=== PATIENT | female | born 1985 | race Caucasian/White ===

== ENCOUNTER 2023-11-02 15:44 | Outpatient (OUT) | payer OTHER, SELFPAY ==
[2023-11-02 16:12] LABS: Basophils Percent Auto 0.4 % (0.2-2.0); Eosinophils Absolute Auto 0.1 10^3/uL (0.0-0.7); Eosinophils Percent Auto 1.3 % (0.9-7.0); Hematocrit 33.7 % (36.0-48.0); Hemoglobin 10.1 g/dL (12.0-16.0); Immature Granulocytes Abs Auto 0.04 10^3/uL (0.00-0.03); Immature Granulocytes Pct Auto 0.5 % (0.0-0.5); Lymphocytes Absolute Auto 1.3 10^3/uL (1.2-3.8); Lymphocytes Percent Auto 16.7 % (20.5-60.0); Mean Corpuscular Volume 76.8 fL (81.0-99.0); Mean Platelet Volume 9.5 fL (9.5-13.5); Monocytes Absolute Auto 0.6 10^3/uL (0.3-0.8); Neutrophils Absolute Auto 5.7 10^3/uL (1.4-6.5); Neutrophils Percent Auto 73.1 % (43.0-75.0); Platelet Count 197 10^3/uL (150-450); Red Blood Count 4.39 10^6/uL (4.20-5.40); Red Cell Distribution Width 15.9 % (11.0-15.0); White Blood Count 7.8 10^3/uL (4.0-11.0)
[2023-11-02 16:15] LABS: Estimated Average Glucose 134 mg/dL; Glycohemoglobin A1C 6.3 % (4.5-6.2)
== END 2023-11-02 15:45 | disposition home or self-care (01) ==
LOC: LAB 15:48
PROVIDERS: PCP Family Medicine; Visit Provider Family Medicine
DX: D64.9 Anemia, unspecified (principal); E11.9 Type 2 diabetes mellitus without complications; H40.9 Unspecified glaucoma
CPT/HCPCS: 36415; 82728; 83036; 85025

== ENCOUNTER 2025-03-21 10:44 | Outpatient (RCR) | payer OTHER, SELFPAY ==
[2025-03-04 14:52] LABS: Hematocrit 32.6 % (36.0-48.0); Hemoglobin 9.3 g/dL (12.0-16.0); Immature Granulocytes Abs Auto 0.05 10^3/uL (0.00-0.03); Immature Granulocytes Pct Auto 0.7 % (0.0-0.5); Lymphocytes Absolute Auto 1.1 10^3/uL (1.2-3.8); Mean Corpuscular HGB Conc 28.5 g/dL (29.9-35.2); Mean Corpuscular Volume 69.2 fL (81.0-99.0); Platelet Count 216 10^3/uL (150-450); Red Blood Count 4.71 10^6/uL (4.20-5.40); Reticulocyte Pct Auto 2.68 % (0.60-3.10); White Blood Count 7.2 10^3/uL (4.0-11.0)
[2025-03-04 15:05] LABS: Mean Corpuscular Hemoglobin 19.7 pg (26.7-34.0)
[2025-03-04 15:32] LABS: Iron 21.0 ug/dL (50.0-170.0); Percent Iron Saturation 5.0 %; Total Iron Binding Capacity 419.0 ug/dL (250.0-450.0)
[2025-03-04 15:46] LABS: Ferritin 9.0 ng/mL (8.0-252.0)
[2025-03-04 15:54] LABS: Alanine Aminotransferase 45 U/L (14-59); Albumin Globulin Ratio 0.9; Albumin Level 3.9 g/dL (3.4-5.0); Alkaline Phosphatase 150 U/L (46-116); Anion Gap 14.0; Aspartate Amino Transferase 25 U/L (15-37); Blood Urea Nitrogen 11.0 mg/dL (7.0-18.0); Calcium 9.5 mg/dL (8.5-10.1); Carbon Dioxide 29.4 mmol/L (21.0-32.0); Chloride 100 mmol/L (98-107); Estimated GFR (African America >60 (>=60 mL/min/1.73m^2); Estimated GFR (Non-African Ame >60 (>=60 mL/min/1.73m^2); Globulin 4.5 g/dL; Glucose 108 mg/dL (74-106); Potassium 3.4 mmol/L (3.5-5.1); Sodium 140 mmol/L (136-145); Total Protein 8.4 g/dL (6.4-8.2)
[2025-03-05 03:07] LABS: Vitamin B12 498 pg/mL (232-1245)
[2025-03-06 12:10] LABS: Albumin 4.0 g/dL (2.9-4.4); Alpha-1-Globulin 0.3 g/dL (0.0-0.4); Alpha-2-Globulin 0.8 g/dL (0.4-1.0); Free Kappa Lt Chains,S 24.4 mg/L (3.3-19.4); Free Lambda Lt Chains,S 21.7 mg/L (5.7-26.3); Gamma Globulin 1.1 g/dL (0.4-1.8); Immunoglobulin A, Qn, Serum 333 mg/dL (87-352); Kappa/Lambda Ratio,S 1.12 (0.26-1.65)
[2025-03-14 10:50] VITALS: BP 129/78; PULSE 63; TEMP 36.6; O2SAT 96
[2025-03-21 10:46] VITALS: BP 151/81; PULSE 65; TEMP 36.2; O2SAT 94
[2025-03-21 11:25] VITALS: BP 140/81
== END 2025-03-25 23:59 | disposition home or self-care (01) ==
LOC: HEMC 10:44
PROVIDERS: PCP Family Medicine; Visit Provider Internal Medicine Hematology & Oncology
DX: D64.9 Anemia, unspecified (principal); D50.9 Iron deficiency anemia, unspecified; E11.9 Type 2 diabetes mellitus without complications; Z79.84 Long term (current) use of oral hypoglycemic drugs; K21.9 Gastro-esophageal reflux disease without esophagitis; I10 Essential (primary) hypertension; H40.9 Unspecified glaucoma; G47.30 Sleep apnea, unspecified; N92.0 Excessive and frequent menstruation with regular cycle; R53.83 Other fatigue; H81.09 Meniere's disease, unspecified ear
CPT/HCPCS: 36415; 80053; 82607; 82728; 82784; 83521; 83540; 83550; 83615; 84155; 84165; 85025; 85045; 85652; 86140; 86334; 96365; G0463; Q0138

== ENCOUNTER 2025-04-22 13:37 | Outpatient (RCR) | payer OTHER, SELFPAY ==
[2025-04-21 14:26] LABS: Hematocrit 36.8 % (36.0-48.0); Hemoglobin 11.4 g/dL (12.0-16.0); Immature Granulocytes Abs Auto 0.03 10^3/uL (0.00-0.03); Immature Granulocytes Pct Auto 0.5 % (0.0-0.5); Lymphocytes Absolute Auto 1.3 10^3/uL (1.2-3.8); Mean Corpuscular HGB Conc 31.0 g/dL (29.9-35.2); Mean Corpuscular Hemoglobin 24.8 pg (26.7-34.0); Mean Corpuscular Volume 80.2 fL (81.0-99.0); Platelet Count 176 10^3/uL (150-450); Red Blood Count 4.59 10^6/uL (4.20-5.40); White Blood Count 6.6 10^3/uL (4.0-11.0)
[2025-04-21 14:55] LABS: Iron 34.0 ug/dL (50.0-170.0); Percent Iron Saturation 10.6 %; Total Iron Binding Capacity 320.0 ug/dL (250.0-450.0)
[2025-04-21 15:10] LABS: Ferritin 40.0 ng/mL (8.0-252.0)
== END 2025-04-25 23:59 | disposition home or self-care (01) ==
LOC: HEMC 13:37
PROVIDERS: PCP Family Medicine; Visit Provider Internal Medicine Hematology & Oncology
DX: D64.9 Anemia, unspecified (principal); D50.9 Iron deficiency anemia, unspecified; K90.9 Intestinal malabsorption, unspecified; I10 Essential (primary) hypertension; K21.9 Gastro-esophageal reflux disease without esophagitis; N92.0 Excessive and frequent menstruation with regular cycle; H81.09 Meniere's disease, unspecified ear; G47.30 Sleep apnea, unspecified; R53.83 Other fatigue
CPT/HCPCS: 36415; 82728; 83540; 83550; 85025; G0463

== ENCOUNTER 2025-05-01 10:53 | Outpatient (RCR) | payer OTHER, SELFPAY ==
[2025-05-01 10:55] VITALS: BP 171/78; PULSE 73; TEMP 36.5; O2SAT 96
--- NOTE | 2025-05-01 11:33 | PC.NURSE ---
1128: IV Feraheme initiated at this time. Pt. without needs or c/o.
== END 2025-05-25 23:59 | disposition home or self-care (01) ==
LOC: HEMC 10:53
PROVIDERS: PCP Family Medicine; Visit Provider Internal Medicine Hematology & Oncology
DX: D50.9 Iron deficiency anemia, unspecified (principal); K90.9 Intestinal malabsorption, unspecified; D64.9 Anemia, unspecified
CPT/HCPCS: 96365; Q0138

== ENCOUNTER 2025-06-03 09:05 | Outpatient (OUT) | payer MEDICAID, SELFPAY ==
--- OUTSIDE RECORDS SUMMARY | 2025-05-28 19:54 | XMS_ITS | Continuity of Care Document ---
Author Organization [facility] Address [address] [place] [address] Phone Care Team Providers Care Airport Operations Supervisor Name Role Phone Evelina Mera MD Primary Care Provider Ely Dodge MD Attending Provider [phone] Evelina Mera MD Attending Provider [phone] Adonis Ferguson DIRECT MARKETING REPRESENTATIVE Attending Provider Brigitte Busch DNP Attending Provider [phone] Kajal Guajardo MANAGER [employer] Attending Provider [phone] Evelina Mera MD Referring Provider [phone] Lamberto Burgess MD Attending Provider Care Teams Patient Care Team Team Status: Active Member Role/Relationship Status Dates Evelina Mera MD Primary Care Provider Active Visit Care Team Team Status: Active Member Role/Relationship Status Dates Evelina Mera MD Primary Care Provider Active Start: March 04, 2025 Keith Harris ProviderActiveStart: March 04, 2025 Visit Care Team Team Status: Inactive Member Role/Relationship Status Dates Evelina Mera MD Primary Care Provider Active Start: March 07, 2025 End: March 07, 2025Keith Delcid ProviderActiveStart: March 07, 2025 End: March 07, 2025 Visit Care Team Team Status: Inactive Member Role/Relationship Status Dates Evelina Mera MD Primary Care Provider Active Start: March 14, 2025 End: March 14, 2025Philippjoby Clark Phyllis , APRNAttending ProviderActiveStart: March 14, 2025 End: March 14, 2025 Visit Care Team Team Status: Inactive Member Role/Relationship Status Dates Evelina Mera MD Primary Care Provider Active Start: March 15, 2025 End: March 15, 2025Philippjoby Clark Jamelneena , APRNAttending ProviderActiveStart: March 15, 2025 End: March 15, 2025 Visit Care Team Team Status: Inactive Member Role/Relationship Status Dates Evelina Mera MD Primary Care Provider Active Start: April 03, 2025 End: April 03, 2025Evelina Mera MDAttending ProviderActiveStart: April 03, 2025 End: April 03, 2025 Visit Care Team Team Status: Inactive Member Role/Relationship Status Dates Evelina Mera MD Primary Care Provider Active Start: April 07, 2025 End: April 07, 2025Brigitte Busch DNPAttending ProviderActiveStart: April 07, 2025 End: April 07, 2025 Visit Care Team Team Status: Active Member Role/Relationship Status Dates Evelina Mera MD Primary Care Provider Active Start: April 21, 2025 Ely Dodge MDAttending ProviderActiveStart: April 21, 2025 Visit Care Team Team Status: Inactive Member Role/Relationship Status Dates Evelina Mera MD Primary Care Provider Active Start: April 23, 2025 End: April 23ndra Guajardo , MANAGER SAP-CAttending ProviderActiveStart: April 23, 2025 End: April 23, 2025 Patient Care Team Team Status: Inactive Member Role/Relationship Status Dates Evelina Mera MD Primary Care Provider Active Start: April 23, 2025 End: April 23ndra Guajardo , MANAGER SAP-CAttending ProviderActiveStart: April 23, 2025 End: April 23, 2025 Visit Care Team Team Status: Inactive Member Role/Relationship Status Siva Mera MD Primary Care Provider Active Start: April 28, 2025 End: April 28, 2025Evelina Mera MDAttending ProviderActiveStart: April 28, 2025 End: April 28, 2025 Visit Care Team Team Status: Inactive Member Role/Relationship Status Dates Evelina Mera MD Primary Care Provider Active Start: April 29, 2025 End: April 29, 2025Eber Serrano ProviderActiveStart: April 29, 2025 End: April 29, 2025 Visit Care Team Team Status: Inactive Member Role/Relationship Status Dates Evelina Mera MD Primary Care Provider Active Start: May 15, 2025 End: May 15, 2025STERLING Delcideferring ProviderActiveStart: May 15, 2025 End: May 15, 2025Geordenisse Burgess MDAttending ProviderActive Start: May 15, 2025 End: May 15, 2025 Chief Complaint and Reason for Visit Chief Complaint Admit Date Discuss Oncology Visit March 07 025 1:44pm REF BY DR. MERA FOR IRON DEF ANEMIA Sep ber 2024 9:25am r11.0 March 15, 2025 8:06am Dizziness/Return to Work April 03 1:45[facility] April 07, 2025 1 0:38am brandon/ 2 month follow up/ new machine Octo 2024 8:55am Obstructive sleep apnea April 23 12:01pm Discuss Meds, A1C April 28, 2025 1 :01pm 6wk F/U ELAYNE April 29, 2025 1 :25pm other form of Dyspnea May 15 9:00am Reason for Visit Admit Date [facility]benign [facility]igo[facility] Generalized anxiety disorder February 242024 1:44pm Menieres disease March 07, 2025 1:44pm Morbid obesity with body mas s index (BMI) of 50.0 to 59.9 in adult March 07, 2025 1:44pm Anemia March 07, 2025 1:44pm Iron deficiency anemia March 14 025 9:25am BPV (benign positional vertigo) April 03, 2025 1:45pm Dyspnea on exertion April 03, 2025 1: 45pm Generalized anxiety disorder March 1:45pm GERD (gastroesophageal reflux disease) O ctober 2024 1:45pm Menieres disease April 03, 2025 1: 45pm Morbid obesity with body mas s index (BMI) of 50.0 to 59.9 in adult April 03, 2025 1:45pm Anemia April 03, 2025 1: 45pm Abnormal weight gain April 07, 2025 10:38am BMI 60.0-69.9, adult April 07, 2025 10:38am Class 3 severe obesity with body mass index (BMI) of 60.0 to 69.9 in adult April 07, 2025 10:38am Depression April 07, 2025 1 0:38am Dietary surveillance and counseling Octo 2024 10:38am Exercise counseling April 07, 2025 1 0:38am Generalized anxiety disorder March 10:38am GERD (gastroesophageal reflux disease) O ctober 2024 10:38am Glaucoma April 07, 2025 1 0:38am History of kidney stones April 07, 2 025 10:38am Hypertension April 07, 2025 1 0:38am Iron deficiency anemia April 07 10:38am Menieres disease April 07, 2025 1 0:38am BRANDON on CPAP April 07, 2025 1 0:38am Type II diabetes mellitus April 07, 2025 10:38am Hypertension April 23, 2025 8 :55am Iron deficiency anemia April 23 8:55am BRANDON on CPAP April 23, 2025 8 :55am Type II diabetes mellitus April 23, 2025 8:55am BMI 50.0-59.9, adult April 23, 2025 8:55am GERD (gastroesophageal reflux disease) N ovember 2024 1:01pm Morbid obesity with body mas s index (BMI) of 50.0 to 59.9 in adult April 28, 2025 1:01pm BRANDON on CPAP April 28, 2025 1 :01pm Type II diabetes mellitus April 28, 2025 1:01pm GERD (gastroesophageal reflux disease) N ovember 2024 1:25pm Iron deficiency anemia April 29 1:25pm BMI 60.0-69.9, adult May 15, 2025 9:00am Dyspnea on exertion May 15, 2025 9:00am Essential (primary) hypertension Novem2024 9:00am Iron deficiency anemia May 15 9:00am BRANDON on CPAP May 15, 2025 9:00am Palpitations May 15, 2025 9:00am Allergies, Adverse Reactions, Alerts Allergen Type Severity Reaction Last Updated Verified Status penicillin V Allergy Unknown rash May 1:59pm Yes Active sulfamethoxazole Allergy Unknown Swelling of Lip/Tongue/Throat, tongue swelling May 28, 2025 1:59pm Yes Active trimethoprim Allergy Unknown Swelling of Lip/Tongue/Throat, tongue swelling May 28, 2025 1:59pm Yes Active Social History Smoking Status Status Start Date End Date Date of Observa tion Never smoked tobacco (finding) May 28, 2025 2:05pm Observation Status Observation Response Date of Response Legal Sex Female (finding) Sex Assigned At BirthFemaleNovember 1984Pregnancy StatusNOctober 2024 Family History Relationship Condition Age at Onset Recorded Date/T renan father Hypertension Unknown History of obstructive sleep apneaUnknownHeart diseaseUnknownOverweightUnknown motherHistory of malignant neoplasm of skinUnknownMalignant neoplasmUnknown Mental health problemUnknownsisterHypothyroidismUnknownHistory of gastric bypass UnknowndaughterAdopted childUnknown Problems Active Problems Problem Diagnosis/Recorded Date Onset Date Stat us Class 3 severe obesity with body mass index (BMI) of 60.0 to 69.9 in adult April 07, 2025 10:10am Unknown Active Exercise counseling April 07, 2025 7:11am Unknown Active Generalized anxiety disorder November 01, 2023 1:05pm Unkn own Active Visual changes December 19, 2023 10:49am Unknown Ac tive BRANDON on CPAP February 20, 2025 9:18am Unknown Act donna BPV (benign positional vertigo) December 11, 2023 10:52a m Unknown Active Dyspnea on exertion April 03, 2025 1:11pm Unknown Active Palpitations April 07, 2025 10:24am Unknown A ctive Ovarian cyst August 02, 2020 11:50am Unknown A ctive Dietary surveillance and counseling April 07, 2025 7:11am Unknown Active Type II diabetes mellitus November 01, 2023 1:06pm Unknown Active Abnormal weight gain April 07, 2025 7:11am Unknown Active 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 October 18, 2024 12:06pm Unknown Active Depression August 02, 2020 9:58am Unknown Ac tive Essential (primary) hypertension November 01, 2023 1:05pm Unknown Active Iron deficiency anemia March 14, 2025 11:45am Un known Active BMI 60.0-69.9, adult April 07, 2025 10:10am Unknow n Active Morbid obesity with body mas s index (BMI) of 50.0 to 59.9 in adult February 26, 2025 12:12pm Unknown A ctive History of kidney stones April 07, 2025 10:51am Un known Active GERD (gastroesophageal reflux disease) April 04 025 6:33pm Unknown Active Glaucoma November 02, 2023 2:31pm Unknown Active Hypertension November 01, 2023 1:05pm Unknown Active Menieres disease October 16, 2024 8:54am Unknown Active Acute lumbar myofascial strain August 17, 2021 2:3 8pm Unknown Active Inactive/Resolved Problems Problem Diagnosis/Recorded Date Onset Date Stat us Sinusitis, acute maxillary May 15, 2024 11:22am Unknown Resolved Anemia November 02, 2023 2:31pm Unknown Resolve d Flank pain August 02, 2020 10:18am Unknown R esolved Gastroenteritis November 08, 2023 9:41am Unknown Res olved Headache December 19, 2023 10:49am Unknown Reso lved Pain of right calf February 06, 2025 7:22pm Unknown Resolved Cat scratch January 15, 2021 9:03pm Unknown Resol sonali Abdominal pain August 02, 2020 10:18am Unknown Resolved Bronchitis June 26, 2022 4:22pm Unknown Res olved Nausea December 11, 2023 10:52am Unknown Reso lved Diarrhea in adult patient January 01, 2025 8:01am Unknow n Resolved Medications Medication Status Dose Units Route Directions Qty Days Refills S tart Date Stop Date End Date Reason(s) Instructions Adherence Potassium Chloride 10 mEq tablet extended release Disc ontinued 0 .ROUTE.[id number] 2023 2:27pmSeptember 2023 7:39amTAKE 1 TABLET BY MOUTH THREE TIMES DAILY WITH FOODMetformin 1,000 mg ualxdiTqskehzbrmch3583RC POTwice bjcnb5790Xtk 2023 3:43pmAugust 2023 7:30amMetoprolol Tartrate 50 mg zqltktEjuyqkhukchg94TOTGBqdfi rqqet7525UwdNovember 21, 2023 1:03pm February 12, 2024 7:30amAtorvastatin 40 mg oguygcKbwenkcdqtba13RWWFZzzvv181Kks 2023 1:08pmAugust 2023 7:30amBupropion Hcl 200 mg tablet sustained- release 12 xdMgydczigufco721NLNXTaisn eqgau979BmnNovember 21, 2023 1:08pmJuly 2023 10:37amFurosemide 40 mg mhmuguWfumxliqrxkh54QAAQHydca499Izi 2023 1:08pmNovember 2023 12:52pmSertraline 100 mg oeyqeoGxtrgrdclfrs853KNNV Pxeou527XiyNovember 21, 2023 1:08pmAugust 2023 7:30amBupropion Hcl 200 mg tablet sustained-release 12 hrDiscontinued0.ROUTE.SNSBBNO767Pdhx 2023 10:37am February 12, 2024 7:30amTAKE 1 TABLET BY MOUTH TWICE DAILYSumatriptan Succinate 50 mg tabletDiscontinued0.ROUTE.UDZKMMI025MykyJanuary 18, 2024 10:37amNovemb2023 12:52pmTAKE 1 TABLET BY MOUTH EVERY 2 HOURS NEEDED FOR MIGRAINE HEADACHE, MAX OF 4 TABLETS IN 24 HOURSMetformin 1,000 mg tabletDiscontinued0 .ROUTE.VCVZPEO6386Zomgas2023 7:29amNovemb2023 12:52pmTAKE 1 TABLET BY MOUTH TWICE DAILYMetoprolol Tartrate 50 mg tabletDiscontinued0.ROUTE .IRYYIDO0634Ktzucn2023 7:29amNovember 2023 12:52pmTAKE 1 TABLET BY MOUTH TWICE DAILYSertraline 100 mg tabletDiscontinued0.ROUTE.DSGFZGH618Pnihoe2023 7:29amNovember 2023 12:52pmTAKE 1 TABLET BY MOUTH DAILY Atorvastatin 40 mg tabletDiscontinued0.ROUTE.NNEDYEM745Gxvbby 19th, 2024 7:29am May 14, 2024 12:52pmTAKE 1 TABLET BY MOUTH DAILYBupropion Hcl 200 mg tablet sustained-release 12 hrDiscontinued0.ROUTE.JBDFZGF599Zmwhai 2023 7:29amSeptember 2023 7:45amTAKE 1 TABLET BY MOUTH TWICE DAILYPotassium Chloride 10 mEq tablet extended releaseDiscontinued0.ROUTE.CMVATSP0868Qyukyebsy 2023 7:38amNovember 2023 12:52pmTAKE 1 TABLET BY MOUTH THREE TIMES DAILY WITH FOODBupropion Hcl 200 mg tablet sustained-release 12 hrDiscontinued0 .ROUTE.BTJQVQN437Jxigsubxb 20th, 2024 7:45amOctober 2023 2:45pmTAKE 1 TABLET BY MOUTH TWICE DAILYBupropion Hcl 200 mg tablet sustained-release 12 hr Discontinued0.ROUTE.FVTNVZP437Pfsrwfy 2023 2:45pmNovember 2023 12:52pmTAKE 1 TABLET BY MOUTH TWICE DAILYAtorvastatin 40 mg tabletDiscontinued0 .ROUTE.IGETONZ407Jhmpayog 2023 12:50pmOctober 2024 10:29amTAKE 1 TABLET BY MOUTH DAILYBupropion Hcl 200 mg tablet sustained-release 12 hr Discontinued0.ROUTE.OMBCDCV9884Svphsibi 2023 12:51pmApril 2024 10:09amTAKE 1 TABLET BY MOUTH TWICE DAILYFurosemide 40 mg cioqgyZzboisefxjpc60VB LASyqsi394Wmvywblz 2023 12:51pmMay 2024 1:21pmMetformin 1,000 mg tabletDiscontinued0.ROUTE.LJOQBCM7760Evnddxbn 2023 12:51pmFebruary 2024 3:12pmTAKE 1 TABLET BY MOUTH TWICE DAILYMetoprolol Tartrate 50 mg tablet Discontinued0.ROUTE.CYVZYQC8896Xqkindky 2023 12:51pmFebruary 2024 3:12pmTAKE 1 TABLET BY MOUTH TWICE DAILYOndansetron 4 mg tablet,disintegrating Okmysgwahami1NVPSK0Z as needed for nausea and jmyrpepm866Mikjdkzk 2023 12:51pmAugust 2024 5:03pmPotassium Chloride 10 mEq tablet extended release Discontinued0.ROUTE.CHCSMUB0113Wyzhdxgr 2023 12:51pmNovember 25, 2024 12:45pm TAKE 1 TABLET BY MOUTH THREE TIMES DAILY WITH FOODSertraline 100 mg tablet Discontinued0.ROUTE.XZTMIGU850Luopotov 19th, 2024 12:51pmFebruary 2024 3:12pmTAKE 1 TABLET BY MOUTH DAILYSumatriptan Succinate 50 mg tabletActive0 .ROUTE.ADZMMGD572ZbpavcslMay 14, 2024 12:51pmTAKE 1 TABLET BY MOUTH EVERY 2 HOURS NEEDED FOR MIGRAINE HEADACHE, MAX OF 4 TABLETS IN 24 HOURSComplies with drug therapyMetoprolol Tartrate 50 mg tabletDiscontinued0.ROUTE.ZPYJWBU5575Ucneumdz 2024 3:11pmMay 2024 10:27amTAKE 1 TABLET BY MOUTH TWICE DAILY Sertraline 100 mg tabletDiscontinued0.ROUTE.KJKLACI994Yncgcvos 17th, 2025 3:11pm March 03, 2025 11:18amTAKE 1 TABLET BY MOUTH DAILYMetformin 1,000 mg tablet Discontinued0.ROUTE.AVIHOGN4372Ounksulu 2024 3:12pmMay 2024 10:27am TAKE 1 TABLET BY MOUTH TWICE DAILYOlmesartan-Hydrochlorothiazide 20-12.5 mg tabletDiscontinued0.ROUTE.ZGENFZA296Mhyev 2024 11:23amJune 2024 7:26amTAKE 1 TABLET BY MOUTH DAILYFurosemide 40 mg gmwhqpFigfprbsloiu33KJEAJsglp 900May 2024 1:21pmJuly 2024 6:23amMetformin 1,000 mg tablet Discontinued0.ROUTE.ZARLUJB3227Ivb2024 10:27amOctober 2024 10:29am TAKE 1 TABLET BY MOUTH TWICE DAILYMetoprolol Tartrate 50 mg tabletDiscontinued0 .ROUTE.DIWCJCV6702Wyr2024 10:27amNovember 2024 10:36amTAKE 1 TABLET BY MOUTH TWICE DAILYPotassium Chloride 10 mEq tablet extended release Discontinued0.ROUTE.JYGGLQL4278Davi2024 12:45pmNovember 2024 8:36am TAKE 1 TABLET BY MOUTH THREE TIMES DAILY WITH FOODOlmesartan-Hydrochlorothiazide 20-12.5 mg tabletDiscontinued0.ROUTE.HCKLLZV998Swxj 27th, 2025 7:26amSept2024 7:47amTAKE 1 TABLET BY MOUTH DAILYFurosemide 40 mg tabletDiscontinued 03PUSIHcxai547Wpvl 2024 6:22amOctober 2024 6:31amBuspirone 5 mg jkbszvWklsdlvadcdu4JRGSTkntd jczvz84325Zixcymgkb 2024 11:18amSeptember 2024 8:39amSertraline 100 mg tabletDiscontinued0.ROUTE.QTOXWCR618Cyxwwbkpm 8th, 2025 11:18amOctober 2024 10:21amTAKE 1 TABLET BY MOUTH DAILY Olmesartan-Hydrochlorothiazide 20-12.5 mg tabletActive0.ROUTE.JJTRURN422 March 17, 2025 7:47amTAKE 1 TABLET BY MOUTH DAILYComplies with drug therapyBuspirone 5 mg ylpndrExxprjqjjbqw8ALVHVsrtz xbwmw93742Qeuslvk 2024 10:15amNovember 2024 8:24amFurosemide 40 mg tabletActive0.ROUTE.ROLROAY452 April 18, 2025 6:31amTAKE 1 TABLET BY MOUTH DAILYComplies with drug therapy Buspirone 5 mg xyjxhmLogvxm7ASAHKdioo wtgqs05285Yypyrrcu 2024 8:24am Complies with drug therapyMetoprolol Tartrate 50 mg tabletDiscontinued0.ROUTE .YULBERU7951Ngyybzwp 11th, 2025 10:35amNovember 2024 9:47amTAKE 1 TABLET BY MOUTH TWICE DAILYSertraline 100 mg rvvoykBmvjrj846VLDMHmdwc722Hzkojbrj 2024 10:35amComplies with drug therapyMetformin 1,000 mg myvsloEpggft6014BQEY Twice volcx2339Qzbrbzjy 20th, 2025 2:36pmUnknownAtorvastatin 40 mg tabletActive 20YUGYBcfpr639Zmyhqjwn 28th, 2025 8:36amUnknownPotassium Chloride 10 mEq tablet extended releaseActive0.ROUTE.CNBVJHS2651Liuawbjm 28th, 2025 8:36amTAKE 1 TABLET BY MOUTH THREE TIMES DAILY WITH FOODUnknownTizanidine 4 mg wwwzljJzpqcq6REGO Three times daily as needed for muscle qztxxxdzgm390Oyjmps 2024 11:00pm Complies with drug therapyNaproxen (Naprosyn) 500 mg huhdegPzudlamjvwke819KJHI Twice daily as needed for jvkx363Yvhisb 2024 11:00pmSeptember 2024 8:39amAtorvastatin 10 mg xbhvywQdfbuaouqmeu09ENHYTzjibSvljucki 2020 12:00am August 17, 2021 2:00pmMetformin 850 mg ffkleeOuktchruvqqz5364LISZXhxve daily August 02, 2020 12:00amMay 2023 3:30pmBupropion Hcl 100 mg tablet sustained-release 12 ssTlmdvcfcprtu729NTWHZgiov dailyFebruary 2020 12:00am September 19, 2023 9:13amMetoprolol Tartrate 50 mg mokxckDvcjoqtkxboy30PYHIHqmbx dailyFebruary 2020 12:00amFebruary 2023 2:29pmAspirin 81 mg Tablet Ifpkpo60RXSQXhpcyLydrekrh 2020 12:00amComplies with drug therapy Hydrochlorothiazide 25 mg ohqpduOsmippbaovej66CTDAVdsosUyeagdtb 2020 12:00amFebruary 2021 2:00pmEscitalopram Oxalate 20 mg eijsphZzvkecimrebx95 MGPODailyFebruary 2020 12:00amMarch 2023 12:08pmPotassium Chloride 10 mEq capsule, extended wblxwntQuekuhpainpi75XICZWXuagd times dailyJuly 2020 11:00pmMarch 2023 2:27pmAmlodipine 5 mg qmzcqqOobrhbyigqpj6MOQEWgibqAczs 2020 11:00pmFebruary 2021 2:00pmAzithromycin 250 mg tablet Ocnepzfawlst4XT.JFQMCCJ91Hwqp 2020 11:00pmFebruary 2021 2:00pmtake 500 mg today (day 1), then 250 mg for 4 days (days 2-5)Furosemide 40 mg tablet Kcsxbxannpqa39RFFKUvofyMgeuhfvj 2021 12:00amMay 2023 1:09pm Atorvastatin 40 mg tabletDiscontinuedMGFebruary 2021 12:00amJanuary 2022 2:54pmVenlafaxine 75 mg capsule,extended release 73exSmwpcgosqjmk49XBDR DailyFebruary 2021 12:00amOctober 2023 2:26pmKetorolac 10 mg tablet Dylejjbzgwdp67ZRBEE2Q as needed for miuj748Deprbogg 2021 12:00amJanuary 2022 2:54pmCyclobenzaprine 10 mg jtwiieKayzcyddvcyk71WOTYCitwt times daily as needed for muscle dwygf749Simlbalc 2021 12:00amMarch 2023 12:09pm Lidocaine 5 % adhesive patch,wtiodiydlLqaxpwhxyizp0YYXJLKKZVQXYKotlh as needed for rkzg703Gfvjdxnk 2021 12:00amOctober 2023 10:32amleave on most painful area for up to 12 hrsPrednisone 20 mg riqqsaVkawxdiroqip59SMSEPmmal559 June 26, 2022 12:00amMarch 2023 12:09pmadminister with food or milk Sertraline 100 mg foisprOvzuxfsoemrm987WTGGPtsrbYqvsmdjl 2023 12:00am August 14, 2023 2:29pmFurosemide (Lasix) 40 mg rapdcqVnowoxrvymeo94JYNVDvcfm August 14, 2023 12:00amFebruary 2023 2:29pmMetoprolol Tartrate (Lopressor) 50 mg fkcjhsPlnuhskvxzrr59UXGPFyrcd dailyFebruary 2023 12:00am December 05, 2023 10:07amAtorvastatin 40 mg volppeSrtbmnkscdmk21LPTFEswlgGimjlzzj 2023 12:00amFebruary 2023 2:29pmMetformin 1,000 mg tablet Kmbjjvxmbofp9150NRVSAfarl dailyFebruary 2023 12:00amFebruary 2023 2:29pmAtorvastatin 40 mg tppczqDqgmoisavecv72QUSHXnxgf824Ymbtbwqx 2023 2:27pmMay 2023 1:09pmFurosemide (Lasix) 40 mg pftfttHrmuuffvjxal36TZOY Uysee022Tkijqinn 2023 2:27pmJune 2023 10:46amMetformin 1,000 mg xeaajuFhlkbsuvwmrg4142GKEFTrkra kebcu2708Bcyzmfep 2023 2:28pmMar 2023 12:09pmSertraline 100 mg lyydbiYpvakwygwazj082YUUXZvbrm205Jwjjctvj 2023 2:28pmMay 2023 1:09pmMetoprolol Tartrate 50 mg ugdewbPwkspfhnenyy32RX POTwice ttovg0263Idvdfyhc 2023 2:29pmMay 2023 1:03pmBupropion Hcl 200 mg tablet sustained-release 12 vxXmujlljbuhnf560LAJOQsaht dailyWay[facility] 20[facility]pm[facility] 20[facility] 12:09pmBupropion Hcl 200 mg tablet sustained- release 12 gdCjvxkmatmqbj199IRJVDyvbn pktwe330Iwzel 2023 12:09pmMay 2023 1:09pmMeclizine 25 mg xdudcmCjbcocwwvyyj69HUODAojvu daily as needed for xrjzwufyc996Tmon 10th, 2024 11:00pmOctober 2023 10:31amOndansetron 4 mg tablet,nqltelvurptqslOagymzjdvswl4CSKNE8L as needed for nausea and hhhfiqjh408 December 19, 2023 10:40amJune 2023 10:45amOndansetron 4 mg tablet,emkwnkjfsaplybObhxtkiyxxmv0TCRFX7M as needed for nausea and pwfxwwiv078 December 19, 2023 10:44amNoveer 2023 12:52pmOlmesartan-Hydrochlorothiazide 20-12.5 mg hlmcczAtlwrnmlrlza1IVXOZHjfqoXkflpjpk 2023 12:00amNovequail [facility] 2023 2:21pmAzithromycin 250 mg exidzlKecvwkalqvkv8RJ.BNBALPR88Gijlxqdt 2023 12:00amFebrour [facility] 2024 3:03pmFor 250 mg dose pack: take 500 mg today (day 1), then 250 mg for 4 days (days 2-5) POOlmesartan- Hydrochlorothiazide 20-12.5 mg rfahkqDlyhegymrcoc3IQUPJErpdz464Zonetmxr 18th, 2024 2:21pmMarch 2024 11:23amSemaglutide (Ozempic) 0.25 mg or 0.5 mg (2 mg/3 mL) pen injectorDiscontinued0.25MGSUBCUTevery tban61Iicmunkd 2024 12:00amAugust 2024 5:03pmfor 4 weeksCiprofloxacin Hcl 500 mg tablet Bqhovtqbzise878RXZLMgafh pzsem856Asdv 2024 11:00pmAugust 2024 5:02pm Semaglutide (Weight Loss) (Wegovy) 0.25 mg/0.5 mL pen injectorDiscontinued0.25MG SUBCUTevery kwln92Yeiabrpzk 1st, 2025 11:00pmOctober 2024 10:08am administer weeks 1 through 4 of therapyFamotidine (Pepcid) 40 mg ecqefjHfdvdm72 MGPODaily at phagdho901Uavdpogu 3rd, 2025 12:00amComplies with drug therapy Tirzepatide (Weight Loss) (Zepbound) 2.5 mg/0.5 mL pen injectorDiscontinued2.5MG SUBCUTevery week2.5300April 28, 2025 1:39pmDecember 2024 2:01pmOSA on CPAP Morbid obesity with body mass index (BMI) of 50.0 to 59.9 in adult Obstructive sleep apnea (adult) (pediatric) Morbid (severe) obesity due to excess calories Body mass index [BMI] 50.0-59.9, adult brandon G47.33for 4 weeksMetformin 1,000 mg oibmslQqfkvmflunut1631QXZWNrqir dailyMay 2023 11:00pmMay 2023 3:43pmFluticasone Propionate (Flonase Allergy Relief) 50 mcg/actuation spray,bbdmoburgkPbhgljzvfjua5JURQAREUWVZWPNYLslsa587 December 10, 2023 11:00pmNov2023 12:52pmadminister into each nostril Ondansetron 4 mg tablet,mjliaumasktjemCzbphnllphos7DWPMI6M as needed for nausea and wmdamase774Usys 2023 11:00pmJune 2023 10:40amSumatriptan Succinate 50 mg vjdnylNbijcfteybls13SBHHKiyln 2 hours as needed for migraine tfljwrpz698Hesn 2023 11:00pmJuly 2023 10:37amdo not exceed 4 doses per 24 hrsBuspirone 5 mg cwcvbvWankvsbhhxzk1MPPCTlfpj kxasz43243Tqvjd 2024 11:00pmSeptember 2024 11:18amTopiramate 25 mg capsule,extended release 24hr Nzqzsy33AUMAKryrlSbvyxcj 2024 11:00pmComplies with drug therapyTirzepatide (Weight Loss) (Zepbound) 2.5 mg/0.5 mL pen injectorDiscontinued2.5MGSUBCUTevery week2.5300Oct2024 11:00pmNov2024 1:40pmosa G47.33for 4 weeksSertraline 100 mg uqhpxpVegagtsbtvrt458QDBSZzxkcXgznzkf 2024 10:07am May 06, 2025 10:36amMetformin 1,000 mg xftgudLbsupdnrxaah7728OBBHIjkrc dailyOctten [facility] hospital 2024 10:28amNovember 2024 2:36pmAtorvastatin 40 mg gvfhutWtgovmuoprbv67OAHLZwtwbFbhselb 2024 10:29amNoveer 2024 8:36amOmeprazole 20 mg capsule,delayed release(DR/EC)Spxdaw76YIYQXmgvt508Nayosot 2024 11:00pmUnknownCarvedilol (Coreg) 12.5 mg uikndmKsrwex84.5MGPOTwice snjze19335Avccsthv 20th, 2025 12:00ammust administer with a meal/foodComplies with drug therapy Immunizations Immunization Event Date Not Given Reason Dose Number 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 Lot Number Reason(s) Given Vaccine Information Statement (VIS) Detail Administration Location Tetanus, Diphtheria, Pertussis (Tdap) January 15, [address] Relevant Diagnostic Tests and/or Laboratory Data Laboratory Results Test Collection Date/Time Result Date/Time Result Interpretation Reference Range Result Comment Performing Site Immunoglobulin G March 04, 2025 1:39pm March 04, 2025 1:39pm 964 mg/dL 586-1602Vitamin B12 LevelSept2024 1:39pmSept2024 1:30pg627 pg/zJ677-2308Awljnzcgv at: - [facility] [address] [place], [place] [id number] Director: Eddie You PhD, Phone: [phone]-Iftqcvnj Protein, QuantitativeSept2024 1:39pmSept2024 1:39pm2.01 mg/dLAbove high normal<=0.50Lactate DehydrogenaseSept2024 1:39pm March 04, 2025 1:13om667 U/Z41-679Vvyln GapSept2024 1:39pm March 04, 2025 1:39pm14.0FerritinSept2024 1:39pmSept2024 1:39pm9.0 ng/mL8.0-252.0Iron SaturationSept2024 1:39pmSept2024 1:39pm5.0 %Percent Reticulocyte CountSept2024 1:39pm March 04, 2025 1:39pm2.68 %0.60-3.10Basophils # (Auto)March 04, 2025 1:39pmSept2024 1:39pm0.0 10 3/uL0.0-0.1Erythrocyte Sedimentation Rate March 04, 2025 1:39pmSept2024 1:41fp326 mm/hrAbove high normal <=20FerritinOctober 2024 1:07pmOctober 2024 1:07pm40.0 ng/mL 8.0-252.0Iron SaturationOctober 2024 1:07pmOctober 2024 1:07pm10.6 % Basophils # (Auto)April 21, 2025 1:07pmOct2024 1:07pm0.0 10 3/uL 0.0-0.1Bedside Hemoglobin G1mOspgcora2024 1:23pmNov2024 1:24pm 5.9 %Protein Electrophoresis M-SpikeSept2024 1:39pmSept2024 1:39pmNot Observed g/dLNot ObservedAlbumin/Globulin RatioSept2024 1:39pmSept2024 1:39pm0.9Iron LevelSept2024 1:39pm March 04, 2025 1:39pm21.0 ug/dLBelow low wzsutb16.0-170.0Basophils (%) (Auto)March 04, 2025 1:39pmSept2024 1:39pm0.6 %0.2-2.0Iron Level April 21, 2025 1:07pmOct2024 1:07pm34.0 ug/dLBelow low normal 50.0-170.0Basophils (%) (Auto)April 21, 2025 1:07pmOct2024 1:07pm 0.6 %0.2-2.0Globulin (PEP)March 04, 2025 1:39pmSept2024 1:39pm 3.5 g/dL2.2-3.9AlbuminSept2024 1:39pmSept2024 1:39pm3.9 g/dL3.4-5.0Total Iron Binding CapacitySept2024 1:39pmSept2024 1:28rk589.0 ug/dL250.0-450.0Eosinophils # (Auto)March 04, 2025 1:39pm March 04, 2025 1:39pm0.1 10 3/uL0.0-0.7Total Iron Binding CapacityOct2024 1:07pmOct2024 1:33ph397.0 ug/dL250.0-450.0Eosinophils # (Auto)April 21, 2025 1:07pmOct2024 1:07pm0.1 10 3/uL0.0-0.7 Albumin/Globulin (PEP)March 04, 2025 1:39pmSept2024 1:39pm1.2 0.7-1.7Alkaline PhosphataseSeptember 2024 1:39pmSeptember 2024 1:39pm 150 U/LAbove high efclld97-569Opbukmwcnis (%) (Auto)March 04, 2025 1:39pm March 04, 2025 1:39pm0.7 %Below low normal0.9-7.0Eosinophils (%) (Auto) April 21, 2025 1:07pmOct2024 1:07pm0.8 %Below low normal0.9-7.0 Serum Immunofixation InterpretationSeptember 2024 1:39pmSept2024 1:39pmComment.No monoclonality detected.Alanine Aminotransferase (ALT/SGPT) March 04, 2025 1:39pmSept2024 1:39pm45 U/E69-03Xwtxixcqlh March 04, 2025 1:39pmSeptember 2024 1:39pm32.6 %Below low normal 36.0-48.0HematocritOctober 2024 1:07pmOctober 2024 1:07pm36.8 % 36.0-48.0Protein Electrophoresis NoteSept2024 1:39pmSeptember 2024 1:39pmComment.Protein electrophoresis scan will follow via computer,mail, or c java developer delivery.Aspartate Amino Transf (AST/SGOT)March 04, 2025 1:39pm March 04, 2025 1:39pm25 U/E69-74NzuhusyoptRrazkehsl 9th, 2025 1:39pm March 04, 2025 1:39pm9.3 g/dLBelow low phqadv61.0-16.0HemoglobinOctober 2024 1:07pmOctober 2024 1:07pm11.4 g/dLBelow low uwccjp05.0-16.0Free [place] Light Chains, QuantSeptember 2024 1:39pmSept2024 1:39pm 24.4 mg/LAbnormal (applies to non-numeric results)3.3-19.4BUN/Creatinine Ratio March 04, 2025 1:39pmSept2024 1:39pm15.1Immature Granulocyte # (Auto)March 04, 2025 1:39pmSept2024 1:39pm0.05 10 3/uLAbove high normal0.00-0.03Immature Granulocyte # (Auto)April 21, 2025 1:07pmOct2024 1:07pm0.03 10 3/uL0.00-0.03Free Lambda Light Chains, 2024 1:39pmSept2024 1:39pm21.7 mg/L5.7-26.3Blood Urea Nitrogen March 04, 2025 1:39pmSept2024 1:39pm11.0 mg/dL7.0-18.0Immature Granulocyte % (Auto)March 04, 2025 1:39pmSept2024 1:39pm0.7 % Above high normal0.0-0.5Immature Granulocyte % (Auto)April 21, 2025 1:07pm April 21, 2025 1:07pm0.5 %0.0-0.5Free [place]/Lambda Light Chain Ratio March 04, 2025 1:39pmSept2024 1:39pm1.120.26-1.65Performed at: - [facility] [id number] [place], [place] [id number] Director: Eddie You PhD, Phone: [phone] LevelSept2024 1:39pmSept2024 1:39pm9.5 mg/dL8.5-10.1Lymphocytes # (Auto)March 04, 2025 1:39pm March 04, 2025 1:39pm1.1 10 3/uLBelow low normal1.2-3.8Lymphocytes # (Auto) April 21, 2025 1:07pmOctober 2024 1:07pm1.3 10 3/uL1.2-3.8 Immunoglobulin ASept2024 1:39pmSept2024 1:29mp245 mg/dL 87-352Chloride LevelSept2024 1:39pmSept2024 1:56kc974 mmol/Y50-848Oafagmrljns (%) (Auto)March 04, 2025 1:39pmSept2024 1:39pm15.8 %Below low yhhfzg74.5-60.0Lymphocytes (%) (Auto)April 21, 2025 1:07pmOct2024 1:07pm19.0 %Below low .5-60.0Immunoglobulin M March 04, 2025 1:39pmSept2024 1:95vl748 mg/dLAbnormal (applies to non-numeric results)26-217Carbon Dioxide LevelSept2024 1:39pm March 04, 2025 1:39pm29.4 mmol/L21.0-32.0Mean Corpuscular Hemoglobin March 04, 2025 1:39pmSept2024 1:39pm19.7 pgBelow low normal 26.7-34.0HYPOCHROMASIA 1+Mean Corpuscular HemoglobinOct2024 1:07pm April 21, 2025 1:07pm24.8 pgBelow low zgyrun94.7-34.0Serum Total Protein March 04, 2025 1:39pmSept2024 1:39pm7.5 g/dL6.0-8.5Creatinine March 04, 2025 1:39pmSept2024 1:39pm0.73 mg/dL0.55-1.02Mean Corpuscular Hemoglobin ConcentSept2024 1:39pmSept2024 1:39pm28.5 g/dLBelow low umplpd28.9-35.2Mean Corpuscular Hemoglobin Concent April 21, 2025 1:07pmOctten [facility] hospital 2024 1:07pm31.0 g/dL29.9-35.2Albumin (Send Out)March 04, 2025 1:39pmSept2024 1:39pm4.0 g/dL2.9-4.4 Estimated GFR ()March 04, 2025 1:39pmSept2024 1:39pm>60>=60 mL/min/1.73m 2Mean Corpuscular VolumeSept2024 1:39pm March 04, 2025 1:39pm69.2 fLBelow low nqpeqf28.0-99.0Mean Corpuscular VolumeOctober 2024 1:07pmOctober 2024 1:07pm80.2 fLBelow low normal 81.0-99.9Jzazx-7-WzrvmatcqFbcqqfabb 2024 1:39pmSept2024 1:39pm 0.3 g/dL0.0-0.4Estimated GFR (Non- AmericanSeptember 2024 1:39pm March 04, 2025 1:39pm>60>=60 mL/min/1.73m 2Monocytes # (Auto)March 04, 2025 1:39pmSept2024 1:39pm0.3 10 3/uL0.3-0.8Monocytes # (Auto) April 21, 2025 1:07pmOct2024 1:07pm0.4 10 3/uL0.3-0.8 Jrosn-8-BjcrvkdlmAbimexmbv 2024 1:39pmSept2024 1:39pm0.8 g/dL 0.4-1.0GlobulinSept2024 1:39pmSept2024 1:39pm4.5 g/dL Monocytes (%) (Auto)March 04, 2025 1:39pmSept2024 1:39pm4.5 % 1.7-12.0Monocytes (%) (Auto)April 21, 2025 1:07pmOctten broeck hospital 2024 1:07pm 5.6 %1.7-12.0Beta GlobulinsSmem[facility]2024 1:39pmSept2024 1:39pm 1.3 g/dL0.7-1.3Glucose LevelSmemorial hospital of [facility]2024 1:39pmSept2024 1:39pm 108 mg/dLAbove high qtpsak27-583Dhtc Platelet VolumeSthe [facility] 2024 1:39pm March 04, 2025 1:39pm9.8 fL9.5-13.5Mean Platelet VolumeHenry [facility] 2024 1:07pmOctten broeck hospital 2024 1:07pm10.0 fL9.5-13.5Gamma GlobulinsSthe [facility] of [facility] 2024 1:39pmSept2024 1:39pm1.1 g/dL0.4-1.8Potassium LevelSthe [facility] of [facility] 2024 1:39pmSept2024 1:39pm3.4 mmol/LBelow low normal3.5-5.1 Neutrophils # (Auto)March 04, 2025 1:39pmSept2024 1:39pm5.6 10 3/uL1.4-6.5Neutrophils # (Auto)April 21, 2025 1:07pmOctten broeck hospital 2024 1:07pm4.8 10 3/uL1.4-6.5Sodium LevelSmemorial hospital of [facility]2024 1:39pmSept2024 1:42hs997 mmol/U033-647Bluuhkvprgy (%) (Auto)March 04, 2025 1:39pm March 04, 2025 1:39pm77.7 %Above high .0-75.0Neutrophils (%) (Auto) April 21, 2025 1:07pmOctten broeck hospital 2024 1:07pm73.5 %43.0-75.0Total Bilirubin March 04, 2025 1:39pmSept2024 1:39pm0.6 mg/dL0.2-1.0Platelet CountSeptember 2024 1:39pmSept2024 1:58ub559 10 3/oW818-513 Platelet CountOctober 2024 1:07pmOctober 2024 1:88ig318 10 3/uL 150-450Total ProteinSeptember 2024 1:39pmSept2024 1:39pm8.4 g/dL Above high normal6.4-8.2Red Blood CountSeptember 2024 1:39pmSept2024 1:39pm4.71 10 6/uL4.20-5.40Red Blood CountOctober 2024 1:07pmOctober 2024 1:07pm4.59 10 6/uL4.20-5.40Red Cell Distribution WidthSeptember 2024 1:39pmSept2024 1:39pm17.7 %Above high vcrimg34.0-15.0Red Cell Distribution WidthOctober 2024 1:07pmOctober 2024 1:07pm24.5 %Above high .0-15.0Corrected White Blood CountSeptember 2024 1:39pm March 04, 2025 1:39pm7.2 10 3/uL4.0-11.0Corrected White Blood CountOctober 2024 1:07pmOctober 2024 1:07pm6.6 10 3/uL4.0-11.0Gliadin (Deamidated) IgA AntibodySeptember 2024 7:31amSeptember 2024 7:36am6 units0-19Negative 0 - 19 Weak Positive 20 - 30 Moderate to Strong Positive >30 [facility] (Deamidated) IgG AntibodySeptember 2024 7:31amSeptember 2024 7:36am2 units0-19Negative 0 - 19 Weak Positive 20 - 30 Moderate to Strong Positive >30[facility] Transglutaminase IgA AbSeptember 2024 7:31amSeptember 2024 7:36am<2 U/mL0-3Negative 0 - 3 Weak Positive 4 - 10 Positive >10 Tissue Transglutaminase (tTG) has been identified as the endomysial antigen. Studies have demonstr- ated that endomysial IgA antibodies have over 99% specificity for gluten sensitive enteropathy.Lab[facility] Transglutaminase IgG AbSept2024 7:31amSeptember 2024 7:36am3 U/mL0-5Negative 0 - 5 Weak Positive 6 - 9 Positive >9[facility] IgA AntibodySept2024 7:31amSeptember 2024 7:36amNegativeNegativeLabCorp IgA (Nephelometry)March 15, 2025 7:31amSeptember 2024 7:42cn053 mg/dL 87-352Performed at: [address] [id number] Director: Eddie You PhD, Phone: [phone] Vital Signs Vital Reading Result Reference Range Collection Date/Time Height 66 [in_i] March 07, 2025 12:45mzMkobjr437.92 kgSept2024 12:57pmHeart Rate66 /zgz17-583Mwjfhoyce 12th, 2025 12:57pmBP Xegmnilr529 mm[Hg]100-140 March 07, 2025 12:57pmBP Iyyxnvgrf50 mm[Hg]60-100Sept2024 12:57pmBMI (Body Mass Index)59.3 kg/r1Gqjweqzwo2024 12:14xdVqudwg90 [in_i]March 14, 2025 8:31tiLzibhw910.92 kgSeptember 2024 8:38amBMI (Body Mass Index)59.3 kg/b8Azmonnsyb 2024 8:63coSdomwh28 [in_i]April 03, 2025 12:87znXpwfty942.10 kgOctober 2024 12:49pmHeart Rate75 /wte63-136 April 03, 2025 12:49pmBP Qxvbtyco611 mm[Hg]100-140Oct2024 12:49pmBP Qoydlbqyo12 mm[Hg]60-100April 03, 2025 12:49pmBMI (Body Mass Index)58.7 kg/d4Jmefaus 2024 12:52hdJusnap35.61 [in_i]April 07, 2025 10:30amWeight 164.35 kgApril 07, 2025 10:30amHeart Rate59 /sau94-068IddeypsApril 07, 2025 10:30amRespiratory rate18 /nsg47-22QcleizkApril 07, 2025 10:30amBP Fxumgkkm406 mm[Hg]100-140April 07, 2025 10:30amBP Cywybjsbo36 mm[Hg]60-100April 07, 2025 10:30amBMI (Body Mass Index)61.0 kg/w1Pzatmja 2024 10:75xrRdezxn37.5 [in_i]April 23, 2025 8:44zdGkopfh976.01 kgApril 23, 2025 8:09amHeart Rate66 /gsq58-569OwedicqApril 23, 2025 8:09amOxygen saturation by Pulse %95-100April 23, 2025 8:09amBP Cvvbfdon675 mm[Hg]100-140April 23, 2025 8:09amBP Vdbhvoeeo34 mm[Hg]60-100April 23, 2025 8:09amBMI (Body Mass Index) 58.1 kg/b2Kjaraga2024 8:94brQqumoy84.5 [in_i]April 28, 2025 1:07pm Xmyxsm417.46 kgNov2024 1:07pmHeart Rate67 /bon99-560YhbmppebApril 28, 2025 1:07pmBP Fpwidmdc556 mm[Hg]100-140Nov2024 1:07pmBP Lpyqooajk05 mm[Hg]60-100April 28, 2025 1:07pmBMI (Body Mass Index)58.3 kg/p7YfddiocxApril 28, 2025 1:41boAujuqm46.5 [in_i]April 29, 2025 1:99xtGbrfzl501.01 kg April 29, 2025 1:30pmHeart Rate70 /tne53-953BierenzcApril 29, 2025 1:30pmBP Tzpjcnea322 mm[Hg]100-140April 29, 2025 1:30pmBP Emyhahzga14 mm[Hg]60-100 April 29, 2025 1:30pmBMI (Body Mass Index)58.1 kg/l5IrwclkhhApril 29, 2025 1:21ddNytbfh66.5 [in_i]May 15, 2025 9:27leSzqzlb004.46 kgMay 15, 2025 9:12amHeart Rate69 /rkj39-982AainvczeMay 15, 2025 9:12amRespiratory rate18 /exw38-12NhrdzxbhMay 15, 2025 9:12amOxygen saturation by Pulse xhdtpgjo75 %95-100 May 15, 2025 9:12amBP Rgkskjng729 mm[Hg]100-140May 15, 2025 9:13am BP Atbdwtvek83 mm[Hg]60-100May 15, 2025 9:13amBMI (Body Mass Index)58.3 kg/e1VcvbzhrwMay 15, 2025 9:12am Advance Directives Advance Directive Response Recorded Date/ Time Advance Directives No August 02, 2020 10:16am Insurance Providers Guarantor Nati Santos Address [address] [place] [id number] Info.Home Phone: Coverage Status Update:2025 Payer Group Member ID Coverage Type Subscriber Relationship to Subscriber Effective Date Expiration Date [facility] Employees Id: [id number] K Rawlins Id: [id number] [address] [place] [id number] Home Phone: Email: [email or web address] Encounters Encounter Location(s) Arrival/Admit Date Discharge/Departure Date Discharge/Departure Disposition Provider(s) Non-patient / Non-visit -[facility] [place] 2024 2:39pm BING Harriseparted Physician/[facility] 1:44pmSept2024 2:18pmDischarged to home care or self care (routine discharge)BING Delcideparted Physician/[facility] 20[facility] 9:25amSeptember 2024 10:11amDischarged to home care or self care (routine discharge)LEO Serranoeparted Clinical-Lab [facility] 2024 8:06amSeptember 2024 8:07amDischarged to home care or self care (routine discharge)LEO Serranoeparted Physician/[facility] 1:45pmOctober 2024 2:13pm Discharged to home care or self care (routine discharge)Evelina Mrea MD Departed Physician/Provider Office Visit-[facility] 2024 10:38amOctober 2024 11:59amDischarged to home care or self care (routine discharge) [facility] [facility] 2024 2:07pmApderick Dodge , BINGeparted Physician/Provider Office Visit- [facility] Sleep LabOctober 2024 8:55amOctober 2024 9:30amDischarged to home care or self care (routine discharge)LEO Vizcainoeparted Clinical-Sleep LabOctober 2024 12:01pmOctober 2024 12:02pmDischarged to home care or self care (routine discharge)LEO Vizcainoeparted Physician/Provider Office Visit-[facility] 2024 1:01pm April 28, 2025 1:39pmDischarged to home care or self care (routine discharge)BING Delcideparted Physician/Provider Office Visit-[facility] 2024 1:25pmNov2024 1:59pmDischarged to home care or self care (routine discharge)LEO Serranoeparted Physician/Provider Office Visit-[facility] 2024 9:00amNovember 2024 10:00amDischarged to home care or self care (routine discharge)Lamberto Burgess MD Recent Diagnosis Onset Date Admit Date BPV (benign positional vertigo) Unknown March 07, 2025 1:44pm Generalized anxiety disorder Unknown Feb 1:44pm Menieres disease Unknown March 07, 2025 1:44pm Morbid obesity with body mas s index (BMI) of 50.0 to 59.9 in adult Unknown March 07, 2025 1:44pm Anemia Unknown March 07, 2025 1:44pm Iron deficiency anemia Unknown March 14, 2025 9:25am BPV (benign positional vertigo) Unknown April 03, 2025 1:45pm Dyspnea on exertion Unknown April 03, 2025 1:45pm Generalized anxiety disorder Unknown Mar 1:45pm GERD (gastroesophageal reflux disease) Unknown April 03, 2025 1:45pm Menieres disease Unknown April 03 1:45pm Morbid obesity with body mas s index (BMI) of 50.0 to 59.9 in adult Unknown April 03, 2025 1:45pm Anemia Unknown April 03 1:45pm Abnormal weight gain Unknown March 10:38am BMI 60.0-69.9, adult Unknown March 10:38am Class 3 severe obesity with body mass index (BMI) of 60.0 to 69.9 in adult Unknown April 07, 2025 10:3 8am Depression Unknown April 07 10:38am Dietary surveillance and counseling Unknown April 07, 2025 10:38am Exercise counseling Unknown March 10:38am Generalized anxiety disorder Unknown Mar 10:38am GERD (gastroesophageal reflux disease) Unknown April 07, 2025 10:38am Glaucoma Unknown April 07 10:38am History of kidney stones Unknown April 07, 2025 10:38am Hypertension Unknown April 07 10:38am Iron deficiency anemia Unknown March 262024 10:38am Menieres disease Unknown April 07, 025 10:38am BRANDON on CPAP Unknown April 07 10:38am Type II diabetes mellitus Unknown 2025 10:38am Hypertension Unknown April 23 8:55am Iron deficiency anemia Unknown March 272024 8:55am BRANDON on CPAP Unknown April 23 8:55am Type II diabetes mellitus Unknown Octobe r 2024 8:55am BMI 50.0-59.9, adult Unknown March 8:55am GERD (gastroesophageal reflux disease) Unknown April 28, 2025 1:01pm Morbid obesity with body mas s index (BMI) of 50.0 to 59.9 in adult Unknown April 28, 2025 1:01pm BRANDON on CPAP Unknown April 28 1:01pm Type II diabetes mellitus Unknown Novemb 2024 1:01pm GERD (gastroesophageal reflux disease) Unknown April 29, 2025 1:25pm Iron deficiency anemia Unknown April 29, 2025 1:25pm BMI 60.0-69.9, adult Unknown May 152024 9:00am Dyspnea on exertion Unknown April 9:00am Essential (primary) hypertension Unknown May 15, 2025 9:00am Iron deficiency anemia Unknown May 15, 2025 9:00am BRANDON on CPAP Unknown May 15, 2 025 9:00am Palpitations Unknown May 15, 2 025 9:00am Assessments Diagnosis Onset Date Resolution Status Admit Date BPV (benign positional vertigo) acuteSeptember 2024 1:44pmGeneralized anxiety disorderacuteSeptember 2024 1:44pmMenieres diseaseacuteSeptember 2024 1:44pmMorbid obesity with body mass index (BMI) of 50.0 to 59.9 in adultacuteSeptember 2024 1:44pm AnemiainactiveSeptember 2024 1:44pmIron deficiency anemiaacuteSeptember 2024 9:25amBPV (benign positional vertigo)acuteOctober 2024 1:45pm Dyspnea on exertionacuteOctober 2024 1:45pmGeneralized anxiety disorder acuteOctober 2024 1:45pmGERD (gastroesophageal reflux disease)acuteOctober 2024 1:45pmMenieres diseaseacuteOctober 2024 1:45pmMorbid obesity with body mass index (BMI) of 50.0 to 59.9 in adultacuteOctober 2024 1:45pm AnemiainactiveOctober 2024 1:45pmAbnormal weight gainacuteOctober 2024 10:38amBMI 60.0-69.9, adultacuteOctober 2024 10:38amClass 3 severe obesity with body mass index (BMI) of 60.0 to 69.9 in adultacuteOctober 2024 10:38amDepressionacuteOctober 2024 10:38amDietary surveillance and counselingacuteOctober 2024 10:38amExercise counselingacuteOctober 2024 10:38amGeneralized anxiety disorderacuteOctober 2024 10:38amGERD (gastroesophageal reflux disease)acuteOctober 2024 10:38amGlaucomaacute April 07, 2025 10:38amHistory of kidney stonesacuteOctten [facility] hospital 2024 10:38amHypertensionacuteOctten [facility] 2024 10:38amIron deficiency anemiaacute April 07, 2025 10:38amMenieres diseaseacuteOctober 2024 10:38amOSA on CPAPacuteOctober 2024 10:38amType II diabetes mellitusacuteOctober 2024 10:38amHypertensionacuteOctober 2024 8:55amIron deficiency anemia acuteOctober 2024 8:55amOSA on CPAPacuteOctober 2024 8:55amType II diabetes mellitusacuteOctober 2024 8:55amBMI 50.0-59.9, adultnoneactive April 23, 2025 8:55amGERD (gastroesophageal reflux disease)acuteNovember 2024 1:01pmMorbid obesity with body mass index (BMI) of 50.0 to 59.9 in adultacuteNovember 2024 1:01pmOSA on CPAPacuteNovember 2024 1:01pmType II diabetes mellitusacuteNovember 2024 1:01pmGERD (gastroesophageal reflux disease)acuteNovember 2024 1:25pmIron deficiency anemiaacuteNovember 2024 1:25pmBMI 60.0-69.9, adultacuteMay 15, 2025 9:00amDyspnea on exertionacuteMay 15, 2025 9:00amEssential (primary) hypertensionacute May 15, 2025 9:00amIron deficiency anemiaacuteMay 15, 2025 9:00am BRANDON on CPAPacuteMay 15, 2025 9:00amPalpitationsacuteNovember 2024 9:00am Plan of Treatment Author [facility]velina Mera [facility] 2:13pmContinue treatment and plan of care w Dr. Dodge. Referral to [facility]. Followup w the weight clinic as scheduled. Continue PT, weight loss w healthy diet and exercise. Followup w ENT as scheduled. Author Adonis Ferguson [facility] 2024 3:37pm- Schedule EGD and colonoscopy for further evaluation of unexplained iron deficiency anemia requiring iron infusions. - Patient to remain on current H2 julia for treatment of longstanding history of GERD. - Anti-reflux precautions discussed: ?? Loss weight ?? Elevate head of bed 4-6 inches when sleeping ?? Avoid eating within 3 hours before bedtime. ?? Maintain upright posture during and after eating. ?? Avoid clothing that is tight in the abdominal area. ?? Minimize narcotics ?? Avoid foods that make symptoms worse (examples include coffee, chocolate, alcohol, peppermint, and fatty foods) . Eat 5-6 small meals throughout the day instead of 2-3 large meals. ?? Do not use tobacco products ?? Minimize alcohol use ?? Avoid lying down for 3 hours after a meal - Follow-up office visit post EGD and colonoscopy. Author Evelina Mera [facility] 2024 8:41amZepbound resent. Continue metformin. Followup w hematology and GI as scheduled. Will share her concerns w her specialists at sleep clinic and GI. Followup accordingly. Pepcid sent to pharmacy. States GI suggested that late in the day and PPI qam. Author Kajal Guajardo [facility] 2024 10:57amPatient recently received a new machine download was reviewed current pressures are controlling apnea well we will make no changes at this time. The patient was encouraged to continue to use her machine nightly throughout the entire night as this does provide her clinical benefit. She is interested in going forward with seeing if insurance will pay for Zepbound for weight loss, prescription was sent for this. If the patient is able to obtain medication she will call the sleep clinic and make a follow-up weight check in 1 month otherwise she will follow-up in the sleep clinic in 1 year or sooner problems. Weight reduction would be broadly beneficial for overall health, but would also have direct benefits on apnea severity and sleep quality. Even moderate weight reduction can affect BRANDON and snoring, and in some patients weight reduction can completely resolve sleep apnea. Patient was on Ozempic in the past and did not tolerate this well she would like to go forward with seeing if insurance will cover Zepbound for weight loss. We will go forward with sending a prescription, patient will follow-up in the sleep clinic in 1 month for weight check if she is able to go forward with receiving this medication. She will also continue to work with weight management and has a follow-up in May Control of sleep apnea will frequently have a positive effect on blood pressure control, and may additionally reduce blood pressure lability.? Blood sugar control has been documented to be worsened in patients with untreated sleep apnea, finding both increased average sugars and increased variability. Controlling sleep apnea could have positive effects on his diabetes overall. In addition, research is demonstrating that even in nondiabetic patients treated with GLP???1 agents significant weight loss can lead to significant improvement in obstructive sleep apnea. Nati is being managed by oncology for anemia and has received two iron infusions with another planned. This is likely contributing to her fatigue. She will continue follow-up with oncology for ongoing management. Patient stated fatigue has improved with iron infusions Call if any questions or problems. For Sleep Apnea: Patient is advised to work on healthy diet choices and appropriate servings, weight control, regular exercise as directed, and reduce fat intake. Use machine regularly, and keep up with mask changes as needed. Call if problems with mask toleration, increased sleepiness, or poor response to treatment. Take medication as prescribed, keep follow up appointments, get any testing that's been ordered in a timely fashion. Do not smoke Patient was verbally informed of the use of an AI-based documentation tool during the encounter. Tool is approved by [facility] and configured for HIPAA-compliant use. No objections voiced. Author Brigtite Busch [facility] CenterAuthoredOctober 2024 11:06amSee above treatment plan. Appointment made with registered dietitian at checkout today. Recommended at least 30 minutes of moderate physical activity most days of the week or 150 minutes weekly in addition to at least 2 days of strength training exercise. Stable at this time, avoid triggers. She does remain on omeprazole from her PCP. Last lab work was done 02/2025. She does get iron infusions and had some recently. She will continue to follow with specialist for this. It is hoped that with iron infusions, this will improve. She does have BRANDON with CPAP. Last sleep study was 5 to 10 years ago. She is now following with [facility] for [facility], she may have an updated sleep study soon. No suicidal or homicidal ideations. She does attend counseling routinely. She will continue to do so. Blood pressure appears to be stable. Last lab work was done 02/2025. She will continue to follow with her PCP for this. Stable at this time, she continues to follow with the insurance specialist. Last lab work was done 02/2025. We will check hemoglobin A1c at next office visit. Last 1 was done by her PCP in 2023. She does remain on metformin 1000 mg twice daily. It is hoped that through participation in our weight management program, this will improve. Follow-up with me in 8 weeks. Initital weight: 362.3 pounds Initial goals: 5% (344), 10% (326). Dietary recommendations: Recommend regular follow-up with our registered dietitian. Appointment made with registered dietitian at checkout today Exercise considerations: Recommended at least 30 minutes of moderate physical activity most days of the week or 150 minutes weekly in addition to at least 2 days of strength training exercise. LABS: 02/2025; check hgba1c at neck OV Medication considerations: will clarify if she wants compounded Semaglutide from [facility]: Nati is a 39-year-old female who presents today for abnormal weight gain. She states that she has dealt with weight issues most of her life. She has been on multiple diets in the past with failure. She has tried Ozempic and Adipex in the past as well. Ozempic was more for her type 2 diabetes but did have weight loss with this medication. Her insurance changed so they stopped covering Ozempic. She does struggle with boredom eating, depression, food addiction, health issues, lack of activity, lack of exercise, late-night snacking, stress eating. Her medical history includes GERD, ELAYNE (iron infusions with hematology), Menieres disease, BRANDON with CPAP (sleep study 5-10 years ago at [facility], following with [facility] now, sees them end of this month), KEA/depression (sees counseling routinely; does not see psychiatry right now, denies suicidal or homicidal ideations), HTN, glaucoma (left eye-sees eye doctor routinely), type II diabetes, possibly hysterectomy in the future, kidney stones. Last lab work was 02/2025. We will recheck hemoglobin A1c at next office visit as she is overdue for her type 2 diabetes. Plan is to take a weight centric approach to patient care in the treatment of excess adiposity and patient's weight related comorbidities. Discussed the impact of excess adiposity on overall health and increased risk of associated health conditions. Discussed treatment options including lifestyle interventions, such as calorie reduction and physical activity, and use of medications as an adjunct to amplify adherence to healthy behavior change. Discussed benefits, risks and side effects of medication. After informed discussion, patient would like to proceed. Patient denies: Any personal or family history of thyroid cancer. Patient denies any personal history of pancreatitis, gallbladder disease, seizure or formal diagnosis of bipolar disorder. Positive for glaucoma. Positive for kidney stones. Given her BMI and comorbidities, she is a candidate for GLP-1 medication. However, her insurance will not pay for GLP-1 medications. She may be interested in compounded semaglutide from [facility], she will let our office know after she gives it some thought. She is scheduled with the registered dietitian at checkout today. Recommended at least 30 minutes of moderate physical activity most days of the week or 150 minutes weekly in addition to at least 2 days of strength training exercise. Body composition analysis per SECA scan completed today at patient visit. Results reviewed with patient. Detailed report found located in patient chart. She will follow-up in the office with me in 8 weeks or sooner if needed. It was discussed with patient that our role is to help them to understand the underlying complex biology of obesity as a disease and offer tools and support for overall health goals and set realistic expectations for weight loss. Understands that the treatment plan is personalized to the best of knowledge and ability with priority to decreasing wt related comorbidities as well as increasing functional capacity and quality of life. Will work with pt to help overcome barriers with the understanding that treatment plan may change management coordinator time and tools, such as medications, do have limitations. Medications, as applicable, were discussed including up-to-date studies and effectiveness, risks and benefits, common side effects, MOA, etc. Regardless of medications, lifestyle change takes precedence. I highly recommended decreasing or eliminating caloric beverages especially sweetened beverages and alcohol. Pt should prioritize preplanning, shopping at the edge of the store, decreasing unhealthy food cues. I recommended packing snacks and meals when out of the home. No macronutrient is completely restricted. We discussed the addictive nature and unhealthy biological changes that occur with ultra processed food and how it may influence chronic disease. I highly recommended preference for whole foods/real foods and decrease added sugar, refined starches, and added fats. The plate method discussed and handout given. Lean unprocessed protein with each meal and each snack to help control appetite, decrease cravings and lessen muscle loss with weight loss advised. The patient will ideally try to get at least 5 or more servings of low carbohydrate veggies daily. Benefits of regular exercise including cardio and resistance training discussed and recommended, slowly increasing activity, as appropriate for the patient. Consider our waste baler for guidance. Handout given. We offer individual and group visits from several different practitioners which was also recommended to help with long-term behavioral change and support. The patient was instructed on good sleep hygiene and the importance of adequate sleep. Circadian rhythm and the importance of mealtime discussed. I recommended stress reduction and controlling factors within reasonable control. The majority of today's visit was spent evaluating patient, counseling/educating patient on the options for the treatment of obesity and weight related health issues. See above treatment plan. No suicidal or homicidal ideations. She does attend counseling routinely. She will continue to do so. She does have a history of kidney stones. Author Adonis Ferguson [facility] CenterAuthoredSeptember 2024 11:49am- Will order celiac serology for further workup of daja(absorption issues) behind above-mentioned iron deficiency anemia. - Patient does not warrant upper nor lower scope at this time due to lack of red flag symptoms pointing towards upper and/or lower GI bleed. - Recommend patient to follow-up with [facility] for further evaluation of new onset heavy menses. - Follow-up visit in 6 weeks to discuss celiac serology. Author Evelina Mera [facility] CenterAuthoredOctober 2024 6:33pmCardiology referral placed, likely needs stress and echo. Continue treatment and plan of care w Dr. Dodge. [facility] - sees them soon. Buspar recently refilled. Followup w the weight clinic as scheduled. Followup w [facility] omeprazole refilled. Note given for work. Continue PT, weight loss w healthy diet and exercise. Followup w ENT as scheduled. Author Lamberto Burgess [facility] CenterAutredNovember 2024 10:15am# Shortness of breath - Differential diagnosis includes coronary artery disease versus deconditioning in the setting of multiple cardiovascular risk factors including hypertension, prediabetes, obesity, obstructive sleep apnea, and family history of premature coronary disease. # Daily palpitations - Etiology unclear, requires rhythm monitoring to determine if cardiac or non-cardiac in origin. # Uncontrolled hypertension - BP goal is < 130/80. Is likely due to obesity than secondary causes. # Excessive sweating - Not consistent with cardiac etiology. May be related to hormonal imbalance, PCOS, thyroid dx, primary hyperhydrosis, etc, but requires further evaluation by PCP or relevant specialties. # Acute on chronic ELAYNE - Unclear cause. Will be worked up by PCP. Hgb is better after 4U PRBC transfusions since Jan 2025. # Other: Prediabetes, BRANDON on CPAP, GERD, Menieres dx, Anxiety, Depression, Morbid obesity. PCP: Dr. Evelina Mera EKG 05/15/2025 ??? normal sinus rhythm, 69 bpm, no ST-T abnormalities. - Cardiolite stress test ordered - to assess exercise capacity and evaluate for coronary artery disease. - Echocardiogram ordered - to assess left ventricular function and further evaluate 1/6 murmur. - 7-day Zio patch monitor ordered - to evaluate daily palpitations. - HTN: Discontinue metoprolol, start carvedilol 12.5 mg twice daily for improved blood pressure control. Cont Olmesartan-HCTZ. Consider addition of spironolactone or amlodipine if blood pressure remains elevated on next visit. - Continue daily CPAP, weight loss, healthy diet and recommend exercise. - She is on ASA and lasix from PCP, unclear indications. ASA for primary prevention is not favored. - Follow-up in 3 months after completion of cardiac testing to review results and reassess blood pressure control. Future Tests Future scheduled test information is unavailable Pending Tests Test Name Ordered Date Scheduled Date [facility] echo transthoracic May 15, 2025 9:47a m Future Visits Future appointment information is unavailable Future Procedures Procedure Name Ordered Date Scheduled Date STR cardiac stress/cardiol May 15, 2025 9 :47am Future Medications Future medication information is unavailable Patient Instructions Patient instructions are unavailable
--- OUTSIDE RECORDS SUMMARY | 2025-06-03 09:36 | XMS_ITS | CCD ---
Author Organization [facility] Care Team Providers Care Communication Analyst Name Role Phone MARK MARTELL Attending Unavailable JASBIR, MARK Consulting Unavailable JASBIR, MARK Primary Care Unavailable JASBIR, MARK Admitting Unavailable TAY, MAXIMINO Admitting Unavailable GILBERT, DR KAYLYN Lemus Consulting Unavailable TAY, MAXIMINO Attending Unavailable REQUEST, NONE LISTED Primary Care Unavaila ble TAY, MAXIMINO Consulting Unavailable REQUEST, NONE LISTED Primary Care Unavaila ble BECKI, DR ANA PAULA Medrano Consulting Unavailable TAY, MAXIMINO Admitting Unavailable TYA, MAXIMINO Attending Unavailable CROSS, MAXIMINO Consulting Unavailable JASBIR, MARK Consulting Unavailable JASBIR, MARK Attending Unavailable REQUEST, NONE LISTED Primary Care Unavaila ble JASBIR, MARK Admitting Unavailable JASBIR, MARK Attending Unavailable JASBIR, MARK Consulting Unavailable ROSS, MARK Primary Care Unavailable ROSS, MARK Admitting Unavailable Dominique Nascimento Unavailable Samreen Reed Unavailable [facility] Primary Care Provider [phone] MIRNA Le Attending Provider MD Kate Groves Attending Provider MD Adry Crockett Other Provider [phone] DO Gris Phillip Attending Provider [phone] NO FAMILY, PHYSICIAN Primary Care Provider Unava ilable DO Say Anderson Attending Provider Nicole Nelson Unavailable [facility] Primary Care Provider MIRNA Spangler Emergency Provider [phone] Myriam Spence Unavailable [facility] Primary Care Provider MIRNA Spangler Emergency Provider Dionisio, EBONI Bianka Attending Provider Nichole, Bianka Unavailable April Ahumada Unavailable Brigitte Mckay Unavailable April Ahumada MD Primary Care Provider April Ahumada MD Primary Care Provider MARRY HALL Attending Unavailable LIAM WAGGONER Referring Unavailable APRIL AHUMADA Primary Care Unavailable April Ahumada MD Primary Care Provider [phone] April Ahumada MD Primary Care Provider April Ahumada MD Attending Provider Mendez Doherty MD Attending Provider [phone] April Ahumada MD Primary Care Provider April Ahumada MD Attending Provider Bartolo Lyons PA-C Emergency Provider Imelda Hutchins CMA Attending Provider Unavaila April Taylor MD Primary Care Provider April Ahumada MD Primary Care Provider Bennett LYN-C, Kajal Attending Provider Ely Dodge MD Attending Provider [phone] Adonis Ferguson APRN Attending Provider [phone] Bartolo Lyons Attending Unavailable April Ahumada Primary Care Unavailable Bartolo Lyons Admitting Unavailable April Ahumada Primary Care Unavailable Adonis Ferguson Admitting Unavailable Adonis Ferguson Attending Unavailable April Ahumada Primary Care Unavailable Mendez Doherty Admitting Unavailab Mendez Rodney Attending Unavailab April Caldera MD Primary Care Provider April Ahumada MD Primary Care Provider April Ahumada MD Attending Provider Brigitte Busch DNP Attending Provider AHUMADA, APRIL Orozco Referring Unavailable AHUMADA, APRIL E Primary Care Unavailable ARGENTINA RICHTER Attending Unavailable AHUMADA, APRIL E Referring Unavailable AHUMADA, APRIL E Primary Care Unavailable KROTZER, TRICE Gomez Attending Unavailable AHUMADA, APRIL E Referring Unavailable AHUMADA, APRIL E Primary Care Unavailable ARGENTINA RICHTER Attending Unavailable AHUMADA, APRIL E Referring Unavailable AHUMADA, APRIL E Primary Care Unavailable AHUMADA, APRIL E Primary Care Unavailable DISHER, ARGENTINA Schneider Referring Unavailable AHUMADA, APRIL E Primary Care Unavailable SAY HERNANDEZ Attending Unavailable DISHERARGENTINA Referring Unavailable AHUMADA, APRIL E Primary Care Unavailable KROTZERTRICE M Attending Unavailable KROTZER, TRICE M Referring Unavailable AHUMADA, APRIL E Primary Care Unavailable KROTZER, TRICE M Attending Unavailable KROTZER, TRICE M Referring Unavailable AHUMADA, APRIL E Primary Care Unavailable KROTZER, TRICE M Referring Unavailable AHUMADA, APRIL E Primary Care Unavailable April Ahumada MD Primary Care Provider Bartolo Lyons PA-C Emergency Provider Imelda Hutchins CMA Attending Provider Unavaila April Taylor MD Attending Provider Bennett LYN-C, Kajal Attending Provider Ely Dodge MD Attending Provider Adonis Ferguson APRN Attending Provider [phone] Brigitte Busch DNP Attending Provider LIAM WAGGONER Attending Unavailable LIAM WAGGONER Attending Unavailable DAVID VILLEDA Attending Unavailable April Ahumada MD Primary Care Provider Allergies Allergy ClassificationReported Allergen(s)Allergy TypeDate of OnsetReaction(s) FacilityDihydrofolate Reductase Inhibitors (antibiotic) (2 sources)TrimethoprimDrug Modxwub13-30-7980Yrrttxsj of Lip/Tongue/Throat, tongue swellingPromedica Fostoria Community HospitalPenicillins (antibiotic) (4 sources)PenicillinDrug Rwdxigt25-76-4541ckvzOiqwwlxpcPromedica Fostoria Community Hospital Sulfonamides (antibiotic) (2 sources)SulfamethoxazoleDrug Fwcklvb48-07-5778Rhupbvlb of Lip/Tongue/Throat, tongue swellingPromedica Fostoria [facility] Hospital (13 sources)PenicillinDrug AllergyrashNorth I[facility] Macrotherapy Other (13 sources)Sulfamethoxazole / TrimethoprimDrug Allergytongue swellingNortEndless Mountains Health Systems Macrotherapy Other (20 sources)Penicillins; Translations: [PENICILLINS]Allergy to substance 28-62-3629WaryTuqvgpdxxMadison Health (20 sources)Sulfamethoxazole; Translations: [sulfamethoxazole]Drug Allergy 87-95-7075Zyecoxfc of Lip/Tongue/Throat, Swelling of Lip/Tongue/Throat, tongue swellingPromedica Fostoria Community Hospital (20 sources)Trimethoprim; Translations: [trimethoprim]Drug Ayjofor39-26-9629 Swelling of Lip/Tongue/Throat, Swelling of Lip/Tongue/Throat, tongue swelling [facility] (20 sources)Penicillin; Translations: [penicillin V]Drug Uruvwqn40-83-4489reff [facility] (20 sources)Sulfamethoxazole / Trimethoprim; Translations: [SULFAMETHOXAZOLE-TRIMETHOPRIM]Drug Tivqkfh78-82-5726BzesikgmuweSVFF Healthcare (4 sources)Sulfonamides (Antibiotic); Translations: [SULFA (SULFONAMIDE ANTIBIOTICS)]Propensity to adverse reactions to dieb48-02-7649Tswczgwgxdo [facility] Medications Current Medications MedicationDrug Class(es)DatesSig (Normalized)Sig (Original)0.25 MG, 0.5 MG Dose 3 ML semaglutide 0.68 MG/ML Pen Injector [Ozempic] (3 sources)Ozempic (0.25 or 0.5 MG/DOSE) 2 MG/3ML as directed Subcutaneous ActiveAspir-81 (13 sources)Aspir-81 Activeaspirin 81 mg oral tablet (20 sources)Platelet Aggregation Inhibitor, Nonsteroidal Anti-inflammatory Drug Start: 79-38-0060spze 1 tablet by mouth once dailyaspirin 81 MG chewable tablet Chew 81 mg in the morning. Activeatorvastatin 40 mg oral tablet (20 sources)HMG-CoA Reductase InhibitorStart: 02-12-2024 End: 25-91-7681ypye 1 tablet by mouth once dailyAtorvastatin 40 mg tablet Discontinued 0 .ROUTE .COMPLEX 90 3 May 14, 2024 12:50pm April 07, 2025 10:29am TAKE 1 TABLET BY MOUTH DAILYStart: 69-07-1722shru 1 tablet by mouth once dailyAtorvastatin Active 0 .ROUTE .COMPLEX 90 February 12, 2024 8:29am TAKE 1 TABLET BY MOUTH DAILYStart: 08-14-2023 End: 70-98-8942vgtq 1 tablet by mouth once dailyatorvastatin (Lipitor) 40 MG tablet Take 40 mg by mouth Daily 11/21/2023 ActiveStart: 08-17-2021 End: 74-68-6750Hfikalqrnbie 40 mg tablet Discontinued MG August 17, 2021 12:00am June 26, 2022 2:54pmStart: 08-17-2021 End: 70-80-0895Qauxpmdvrenm Discontinued MG TABLET August 17, 2021 1:00am June 26, 2022 3:54pmStart: 08-02-2020 End: 56-50-3018kkxr 1 tablet by mouth once dailyAtorvastatin 10 mg tablet Discontinued 10 MG PO Daily August 02, 2020 12:00am August 17, 2021 2:00pmAtorvastatin Calcium Activebenzonatate 200 mg oral capsule (4 sources)Non-narcotic AntitussiveStart: 66-23-7205zeyv 1 capsule by mouth every eight hoursBenzonatate 200 MG 1 capsule Orally Three times a day for 10 day(s) May, ActivebusPIRone hydrochloride 5 mg oral tablet (20 sources)Start: 98-08-5371lzxw 1 tablet by mouth twice dailyStart: 10-03-2024 End: 29-74-1003lgez 1 tablet by mouth twice dailyBuspirone 5 mg tablet Discontinued 5 MG PO Twice daily 60 30 0 March 03, 2025 11:18am March 14, 2025 8:39amcefdinir 300 mg oral capsule (7 sources)Cephalosporin AntibacterialStart: 07-22-0161rzxw 1 capsule by mouth every twelve hoursCefdinir 300 MG 1 Capsule Orally bid for 10 days Mar, ActiveStart: 55-54-4566Wtcyuyqy 300 MG as directed Orally BID for 7 days Mar, Activefamotidine 40 mg oral tablet (1 source)Histamine-2 Receptor AntagonistStart: 14-37-8457rdwb 1 tablet by mouth once daily at bedtimefurosemide 40 mg oral tablet (20 sources)Loop DiureticStart: 72-95-6339tkem 1 tablet by mouth once daily Start: 08-17-2021 End: 55-08-2806xgos 1 tablet by mouth once dailyfurosemide (Lasix) 40 MG tablet Take 40 mg by mouth Daily 11/21/2023 Activetake 1 tablet by mouth twice daily furosemide (LASIX) 20 mg tablet Take 1 tablet (20 mg total) by mouth 2 (two) times a day. Activetake 1 tablet by mouth every twenty-four hoursLasix 20 MG 1 tablet Orally Once a day Activemeclizine hydrochloride 25 mg oral tablet (20 sources)AntiemeticStart: 12-05-2023 End: 57-59-0580iiempqvog (Antivert) 25 MG tablet Take 25 mg by mouth as needed in the morning and 25 mg as needed in the evening. 12/05/2023 ActivemetFORMIN hydrochloride 1000 mg oral tablet (20 sources)BiguanideStart: 02-12-2024 End: 07-00-3713rxem 1 tablet by mouth twice dailyMetformin 1,000 mg tablet Discontinued 0 .ROUTE .COMPLEX 180 1 November 14, 2024 10:27am March 10:29am TAKE 1 TABLET BY MOUTH TWICE DAILYStart: 11-14-2023 End: 08-65-6692irwv 1 tablet by mouth in the morningmetFORMIN (Glucophage) 1000 MG tablet Take 1,000 mg by mouth in the morning and 1,000 mg in the evening. Take with meals. 11/14/2023 ActiveStart: 08-14-2023 End: 94-52-2833jzol 1 tablet by mouth twice dailyMetformin 1,000 mg tablet Discontinued 1000 MG PO Twice daily 180 0 August 14, 2023 2:28pm September 19, 2023 12:09pmStart: 08-02-2020 End: 42-76-0229Qpkoclvnb 850 mg tablet Discontinued 1000 MG PO Twice daily August 02, 2020 12:00am November 14, 2023 3:30pmStart: 08-02-2020 End: 56-96-5971yojb 1000 mg by mouth twice dailyMetformin Discontinued 1000 MG PO Twice daily August 02, 2020 1:00am November 14, 2023 4:30pmtake 1 tablet by mouth in the morning, then take 1 tablet by mouth at bedtimemetFORMIN (GLUCOPHAGE) 500 mg tablet Take 1 tablet (500 mg total) by mouth in the morning and 1 tablet (500 mg total) before bedtime. Activetake 1 tablet by mouth every twenty-four hoursmetFORMIN HCl 850 MG 1 tablet with a meal Orally Once a day ActivemethylPREDNISolone 4 mg oral tablet (3 sources)CorticosteroidStart: 23-96-6770cthwqfTGFRTNLlqvmn 4 MG as directed Orally for daily dose take half with breakfast, half with dinner for 6 days Mar, Activeomeprazole 20 mg delayed release oral capsule (5 sources)Proton Pump InhibitorStart: 62-81-1563vxhl 1 capsule by mouth once dailyozempic (0.25 or 0.5 mg/dose) 2 mg/3ml solution pen-injector (3 sources)Ozempic (0.25 or 0.5 MG/DOSE) 2 MG/3ML as directed Subcutaneous ActivePotassium (11 sources)Potassium Activepotassium chloride 10 meq extended release oral tablet (20 sources)Start: 08-30-2023 End: 37-91-9443easq 1 tablet by mouth three times daily at mealtimePotassium Chloride 10 mEq tablet extended release Discontinued 0 .ROUTE .COMPLEX 270 1 May 14, 2024 12:51pm November 25, 2024 12:45pm TAKE 1 TABLET BY MOUTH THREE TIMES DAILY WITH FOODStart: 02-50-7610ipoi 1 tablet by mouth in the morning, then take 1 tablet by mouth in the evening, then take 1 tablet by mouth at bedtimepotassium chloride CR (Klor-Con) 10 MEQ ER tablet Take 10 mEq by mouth in the morning and 10 mEq inthe evening and 10 mEq before bedtime. 08/30/2023 ActiveStart: 01-15-2021 End: 91-35-0449uvos 1 capsule by mouth three times dailyPotassium Chloride 10 mEq capsule, extended release Discontinued 10 MEQ PO Three times daily January 142020 11:00pm August 30, 2023 2:27pmtake 1 tablet by mouth three times daily at mealtimePotassium Chloride ER 10 MEQ 1 tablet with food Orally three times daily for 90 days Activesertraline 100 mg oral tablet (20 sources)Serotonin Reuptake InhibitorStart: 69-16-4747Mqghv: 02-12-2024 End: 45-82-6608afqy 1 tablet by mouth once dailySertraline 100 mg tablet Discontinued 0 .ROUTE .COMPLEX 90 0 March 03, 2025 11:18am April 07, 2025 10:21am TAKE 1 TABLET BY MOUTH DAILYStart: 10-29-2021 End: 02-19-3870rcun 1 tablet by mouth once dailysertraline (Zoloft) 100 MG tablet Take 100 mg by mouth Daily 11/21/2023 ActiveSUMAtriptan 50 mg oral tablet (20 sources)Serotonin-1b and Serotonin-1d Receptor AgonistStart: 01-18-2024 End: 21-72-0900ubhs 1 tablet by mouth every two hours as needed for headache, then take 4 tablets by mouth every twenty-four hours as needed for headache Start: 72-93-9710PXQTnnybjxt (Imitrex) 50 MG tablet 01/03/2024 ActiveStart: 01-03-2024 End: 67-12-4125bfqc 4 tablets by mouth every twenty-four hours as needed for headacheSumatriptan Succinate 50 mg tablet Discontinued 50 MG PO Every 2 hours as needed for migraine headache 10 0 January 02, 2024 11:00pm January 18, 2024 10:37am do not exceed 4 doses per 24 hrsTirzepatide (Weight Loss) (4 sources)Start: 35-38-6184Uzwbz: 04-23-2025 End: 42-42-5099Ajshmpsfrno (Weight Loss) (Zepbound) 2.5 mg/0.5 mL pen injector Discontinued 2.5 MG SUBCUT every week 2.5 30 0 April 22, 2025 11:00pm April 28, 2025 1:40pm brandon G47.33 for 4 weeksStart: 73-09-2395Ffwdkubkfdr (Weight Loss) (Zepbound) 2.5 mg/0.5 mL pen injector Active 2.5 MG SUBCUT every week 2.530 0 April 22, 2025 11:00pm brandon G47.33 for 4 weeks Complies with drug therapyStart: 51-65-7849Wdpsobexqir (Weight Loss) (Zepbound) 2.5 mg/0.5 mL pen injector Active 2.5 MG SUBCUT every week 2.530 0 April 23, 2025 12:00am brandon G47.33 for 4 weeks Complies with drug therapytiZANidine 4 mg oral tablet (14 sources)Central alpha-2 Adrenergic AgonistStart: 53-45-8705ciht 1 tablet by mouth three times daily as neededStart: 98-45-9245yjyo 1 tablet by mouth every eight hourstiZANidine HCl 4 MG 1 tablet as needed Orally Three times a day for 3 days Feb, Iwzugd32 hr topiramate 25 mg extended release oral capsule (4 sources)Start: 38-56-4920hmjf 1 capsule by mouth once dailyStart: 04-07-2025 topiramate (TOPAMAX) 25 mg tablet One PO qhs for 1-2 weeks then Increase BIID for another 1-2 weekdthen TID for one to two week then 2 tablets BID 70 tablet 12 04/07/2025 Active Completed/Discontinued Medications MedicationDrug Class(es)DatesSig (Normalized)Sig (Original)amLODIPine 5 mg oral tablet (20 sources)Dihydropyridine Calcium Channel BlockerStart: 01-15-2021 End: 33-06-4305jane 1 tablet by mouth once dailyAmlodipine 5 mg tablet Discontinued 5 MG PO Daily January 14, 2021 11:00pm August 17, 2021 2:00pm End: 74-91-2731geey 1 tablet by mouth once dailyamLODIPine (NORVASC) 10 mg tablet Take 10 mg by mouth daily. 03/27/2025 Discontinued (Therapy completed) amLODIPine Besylate Activeazithromycin 250 mg oral tablet (20 sources)Macrolide AntimicrobialStart: 05-13-2024 End: 75-75-0724Jmtwabljdxcu 250 mg tablet Discontinued 0 PO .COMPLEX 6 0 May 13, 2024 12:00am August 19, 2024 3:03pm For 250 mg dose pack: take 500 mg today (day 1), then 250 mg for 4 days (days 2-5) POStart: 01-15-2021 End: 03-74-8483tufz 2-5 tablets by mouth once dailyAzithromycin 250 mg tablet Discontinued 0 PO .COMPLEX 6 0 January 14, 2021 11:00pm August 17, 2021 2:00pm take 500 mg today (day 1), then 250 mg for 4 days (days 2-5)12 hr buPROPion hydrochloride 200 mg extended release oral tablet (20 sources)AminoketoneStart: 63-96-6993rutq 1 tablet by mouth twice daily Bupropion Hcl Active 0 .ROUTE .COMPLEX 60 March 15, 2024 8:45am TAKE 1 TABLET BY MOUTH TWICE DAILYStart: 02-12-2024 End: 73-22-1083isco 1 tablet by mouth twice dailyBupropion Hcl Discontinued 0 .ROUTE .COMPLEX 60 February 12, 2024 8:29am March 15, 2024 8:45am TAKE 1 TABLET BY MOUTH TWICE DAILYStart: 01-18-2024 End: 64-66-0275hiij 1 tablet by mouth twice dailyBupropion Hcl 200 mg tablet sustained-release 12 hr Discontinued 0 .ROUTE .COMPLEX 180 May 14, 2024 12:51pm October 03, 2024 10:09am TAKE 1 TABLET BY MOUTH TWICE DAILYStart: 01-18-2024 End: 63-91-3174jhlj 1 tablet by mouth twice dailyBupropion Hcl Discontinued 0 .ROUTE .COMPLEX 60 January 18, 2024 11:37am February 12, 2024 8:30am TAKE 1 TABLET BY MOUTH TWICE DAILYStart: 11-21-2023 End: 77-14-0773wkox 1 tablet by mouth every twelve hours in the morningbuPROPion SR (Wellbutrin SR) 200 MG 12 hr tablet Take 200 mg by mouth in the morning and 200 mg before bedtime. 11/21/2023 04/04/2024 Discontinued (Duplicate order) Start: 09-19-2023 End: 05-13-1595shjl 1 tablet by mouth twice dailyBupropion Hcl 200 mg tablet sustained-release 12 hr Discontinued 200 MG PO Twice daily 60 September 19, 2023 12:09pm November 21, 2023 1:09pmStart: 08-02-2020 End: 99-40-3185qzsv 1 tablet by mouth twice dailyBupropion Hcl 100 mg tablet sustained-release 12 hr Discontinued 150 MG PO Twice daily August 02, 2020 12:00am September 19, 2023 9:13am End: 65-80-7018usklhuytq HCl (WELLBUTRIN ORAL) Take by mouth. 03/27/2025 Discontinued (Therapy completed)bupropion HCl (WELLBUTRIN ORAL) Take by mouth. Activetake 1 tablet by mouth every twenty-four hoursbuPROPion HCl ER (SR) 200 MG 1 tablet in the morning Orally Once a day ActiveWellbutrin ActiveBupropion Hcl 200 mg tablet sustained-release 12 hr (15 sources)Start: 03-15-2024 End: 83-55-6747qgnm 1 tablet by mouth twice dailyBupropion Hcl 200 mg tablet sustained-release 12 hr Discontinued 0 .ROUTE .COMPLEX 60 March 15, 2024 8:45am April 17, 2024 3:45pm TAKE 1 TABLET BY MOUTH TWICE DAILYStart: 03-15-2024 End: 12-02-7495hglq 1 tablet by mouth twice dailyBupropion Hcl 200 mg tablet sustained-release 12 hr Discontinued 0 .ROUTE .COMPLEX 60 March 15, 2024 7:45am April 17, 2024 2:45pm TAKE 1 TABLET BY MOUTH TWICE DAILYStart: 02-12-2024 End: 81-56-1485kpcs 1 tablet by mouth twice dailyBupropion Hcl 200 mg tablet sustained-release 12 hr Discontinued 0 .ROUTE .COMPLEX 60 February 12, 2024 8:29am March 15, 2024 8:45am TAKE 1 TABLET BY MOUTH TWICE DAILYStart: 02-12-2024 End: 46-95-4951yffp 1 tablet by mouth twice dailyBupropion Hcl 200 mg tablet sustained-release 12 hr Discontinued 0 .ROUTE .COMPLEX 60 February 12, 2024 7:29am March 15, 2024 7:45am TAKE 1 TABLET BY MOUTH TWICE DAILYStart: 01-18-2024 End: 77-59-1048eidw 1 tablet by mouth twice dailyBupropion Hcl 200 mg tablet sustained-release 12 hr Discontinued 0 .ROUTE .COMPLEX 60 January 18, 2024 11:37am February 12, 2024 8:30am TAKE 1 TABLET BY MOUTH TWICE DAILYStart: 01-18-2024 End: 25-63-4621diqd 1 tablet by mouth twice dailyBupropion Hcl 200 mg tablet sustained-release 12 hr Discontinued 0 .ROUTE .COMPLEX 60 January 18, 2024 10:37am February 12, 2024 7:30am TAKE 1 TABLET BY MOUTH TWICE DAILYcefuroxime 500 mg oral tablet (5 sources)Cephalosporin AntibacterialStart: 12-22-6264ahqe 1 tablet by mouth every twelve hoursCefuroxime Axetil 500 MG 1 tablet Orally every 12 hrs for 7 days Feb, Not-Takingciprofloxacin 500 mg oral tablet (13 sources)Quinolone AntimicrobialStart: 12-25-2024 End: 28-52-4183ycly 1 tablet by mouth twice dailyCiprofloxacin Hcl 500 mg tablet Discontinued 500 MG PO Twice daily 10 December 24, 2024 11:00pm February 06, 2025 5:02pmcyclobenzaprine hydrochloride 10 mg oral tablet (20 sources)Muscle RelaxantStart: 08-17-2021 End: 06-50-4925ocab 1 tablet by mouth three times daily as needed for muscle spasmsCyclobenzaprine 10 mg tablet Discontinued 10 MG PO Three times daily as needed for muscle spasm 14 August 17, 2021 12:00am September 19, 2023 12:09pmdexamethasone 1 mg/ml / tobramycin 3 mg/ml ophthalmic suspension (5 sources)Aminoglycoside Antibacterial, CorticosteroidStart: 93-52-7648pkxd 1 drop(s) into the eye(s) three times dailyTobraDex 0.3-0.1 % 1 drop into affected eye Ophthalmic Three times a day for 5 days Dec, Not-Taking dextromethorphan hydrobromide 1.5 mg/ml / pyrilamine maleate 1.5 mg/ml oral solution (5 sources)Uncompetitive C-agsvur-E-aspartate Receptor Antagonist, Sigma-1 AgonistStart: 89-85-6225Jbbmfh DM 7.5-7.5 MG/5ML 10 ml Orally every 6-8 hours as needed for 8 days Feb, Not-Takingescitalopram 20 mg oral tablet (20 sources)Serotonin Reuptake InhibitorStart: 08-02-2020 End: 91-92-4063fmjr 1 tablet by mouth once dailyEscitalopram Oxalate 20 mg tablet Discontinued 20 MG PO Daily August 02, 2020 12:00am September 19, 2023 12:08pmfluticasone propionate 0.05 mg/actuat metered dose nasal spray (20 sources)CorticosteroidStart: 12-11-2023 End: 87-02-1271wdhb 1 spray(s) nasal route once dailyFluticasone Propionate (Flonase Allergy Relief) 50 mcg/actuation spray,suspension Discontinued 2 SPRAY INTRANASAL Daily 16 0 December 10, 2023 11:00pm May 14, 2024 12:52pm administer into each nostrilStart: 26-12-1979yvld 1 spray(s) nasal route once dailyFluticasone Propionate 50 MCG/ACT 1 spray in each nostril Nasally Once a day for 30 days Mar, ActiveStart: 39-22-6975cnow 1 spray(s) nasal route once dailyFluticasone Propionate 50 MCG/ACT 1 spray in each nostril Nasally Once a day for 30 days Mar, ActivehydroCHLOROthiazide 25 mg oral tablet (20 sources)Thiazide DiureticStart: 08-02-2020 End: 73-43-8460fqjo 1 tablet by mouth once dailyHydrochlorothiazide 25 mg tablet Discontinued 25 MG PO Daily August 02, 2020 12:00am August 17, 2021 2:00pmhydroCHLOROthiazide Not-TakinghydroCHLOROthiazide 12.5 mg / olmesartan medoxomil 20 mg oral tablet (20 sources)Thiazide Diuretic, Angiotensin 2 Receptor BlockerStart: 08-26-2024 End: 35-84-4911tynr 1 tablet by mouth once dailyOlmesartan-Hydrochlorothiazide 20-12.5 mg tablet Discontinued 0 .ROUTE .COMPLEX 90 0 December 20, 2024 7:26am March 17, 2025 7:47am TAKE 1 TABLET BY MOUTH DAILYStart: 05-13-2024 End: 29-86-9237aayh 1 tablet by mouth once dailyOlmesartan-Hydrochlorothiazide 20-12.5 mg tablet Discontinued 1 TAB PO Daily 90 0 May 13, 2024 2:21pm August 26, 2024 11:23amtake 1 tablet by mouth onceolmesartan-hydroCHLOROthiazide (BENICAR HCT) 20-12.5 mg per tablet Take 1 tablet by mouth. Activetake 1 tablet by mouth every twenty-four hoursOlmesartan Medoxomil-HCTZ 20-12.5 MG 1 tablet once a day for 90 days Activeketorolac tromethamine 10 mg oral tablet (20 sources)Nonsteroidal Anti-inflammatory Drug, Cyclooxygenase InhibitorStart: 08-17-2021 End: 20-70-3045sxvb 1 tablet by mouth every six hours as needed for pain Ketorolac 10 mg tablet Discontinued 10 MG PO Q6H as needed for pain 15 0 August 17, 2021 12:00am June 26, 2022 2:54pmlidocaine 0.05 mg/mg medicated patch (20 sources)Antiarrhythmic, Amide Local AnestheticStart: 08-17-2021 End: 53-21-9417ynpsx 1 dose topically once daily as needed for painLidocaine 5 % adhesive patch,medicated Discontinued 1 PATCH TOPICAL Daily as needed for pain 30 0 August 17, 2021 12:00am April 01, 2024 10:32am leave on most painful area for up to 12 hrsmetoprolol tartrate 50 mg oral tablet (20 sources)beta-Adrenergic BlockerStart: 02-12-2024 End: 71-64-6649kqvy 1 tablet by mouth twice dailyMetoprolol Tartrate 50 mg tablet Discontinued 0 .ROUTE .COMPLEX 180 0 August 12, 2024 3:11pm November 14, 2024 10:27am TAKE 1 TABLET BY MOUTH TWICE DAILYStart: 08-02-2020 End: 62-72-0146rlki 1 tablet by mouth in the morningmetoprolol tartrate (Lopressor) 50 MG tablet Take 50 mg by mouth in the morning and 50 mg before bed time. 11/21/2023 Activenaproxen 500 mg oral tablet (12 sources)Nonsteroidal Anti-inflammatory DrugStart: 02-06-2025 End: 37-82-1714njut 1 tablet by mouth twice daily as needed for painNaproxen (Naprosyn) 500 mg tablet Discontinued 500 MG PO Twice daily as needed for pain 20 0 2024 11:00pm March 14, 2025 8:39amondansetron 4 mg disintegrating oral tablet (20 sources)Serotonin-3 Receptor AntagonistStart: 12-11-2023 End: 25-55-0739sgpj 1 tablet by mouth every eight hours as needed for nausea and vomitingOndansetron 4 mg tablet,disintegrating Discontinued 4 MG PO Q8H as needed for nausea and vomiting 30 0 December 19, 2023 10:44am May 14, 2024 12:52pmpredniSONE 20 mg oral tablet (20 sources)Start: 06-26-2022 End: 83-24-3669rudz 2 tablets by mouth once daily at mealtimePrednisone 20 mg tablet Discontinued 40 MG PO Daily June 26, 2022 12:00am September 182:09pm administer with food or milkStart: 06-26-2022 End: 39-39-0250pfoc 40 mg by mouth once daily at mealtimePrednisone Discontinued 40 MG PO Daily June 26, 2022 1:00am September 19, 2023 1:09pm administer with food or milkSemaglutide (17 sources)Start: 08-19-2024 End: 28-62-7331Akeriipfjmj (Ozempic) 0.25 mg or 0.5 mg (2 mg/3 mL) pen injector Discontinued 0.25 MG SUBCUT every week 3 2 August 19, 2024 12:00am February 06, 2025 5:03pm for 4 weeksStart: 08-19-2024 End: 48-07-7169Kelmqksnbbl (Ozempic) 0.25 mg or 0.5 mg (2 mg/3 mL) pen injector Discontinued 0.25 MG SUBCUT every week 3 2 August 19, 2024 1:00am February 06, 2025 6:03pm for 4 weeksStart: 08-19-2024 End: 72-54-7542Hxgoyuemgsu (Ozempic) 0.25 mg or 0.5 mg (2 mg/3 mL) pen injector Discontinued 0.25 MG SUBCUT every week 3 August 19, 2024 1:00am February 06, 2025 6:03pm for 4 weeksStart: 68-76-0882Gqghthemqtf (Ozempic) 0.25 mg or 0.5 mg (2 mg/3 mL) pen injector Active 0.25 MG SUBCUT every week 3Febru2024 1:00am for 4 weeks Complies with drug therapyStart: 55-44-7445Qovxavfubjn (Ozempic) 0.25 mg or 0.5 mg (2 mg/3 mL) pen injector Active 0.25 MG SUBCUT every week 3Febru2024 1:00am for 4 weeksStart: 15-14-4078Xjmnfsictsa (Ozempic) 0.25 mg or 0.5 mg (2 mg/3 mL) pen injector Active 0.25 MG SUBCUT every week 3[place] 2024 12:00am for 4 weeksSemaglutide (Weight Loss) (9 sources)Start: 02-25-2025 End: 85-92-9516Bvetxdwumhe (Weight Loss) (Wegovy) 0.25 mg/0.5 mL pen injector Discontinued 0.25 MG SUBCUT every week 2 0 February 24, 2025 11:00pm April 07, 2025 10:08am administer weeks 1 through 4 of therapyStart: 02-25-2025 End: 62-79-3102Vhyhhvptkfr (Weight Loss) (Wegovy) 0.25 mg/0.5 mL pen injector Discontinued 0.25 MG SUBCUT every week 2 0 February 25, 2025 12:00am April 07, 2025 11:08am administer weeks 1 through 4 of therapyStart: 02-25-2025 End: 51-27-7552Msfhepbfead (Weight Loss) (Wegovy) 0.25 mg/0.5 mL pen injector Discontinued 0.25 MG SUBCUT every week 2 February 25, 2025 12:00am April 07, 2025 11:08am administer weeks 1 through 4 of therapyStart: 02-25-2025 Start: 28-30-4203Ybrshmiqwvi (Weight Loss) (Wegovy) 0.25 mg/0.5 mL pen injector Active 0.25 MG SUBCUT every week 2 February 25, 2025 12:00am administer weeks 1 through 4 of therapy Complies with drug therapyToradol 30 mg/ml (20 sources)Start: 58-13-8626Jrplnra 30 mg/ml Dec, 30 mgStart: 49-47-7118Dixdwyy 30 mg/ml Feb, 60 mg24 hr venlafaxine 75 mg extended release oral capsule (20 sources)Serotonin and Norepinephrine Reuptake InhibitorStart: 08-17-2021 End: 65-82-7501xgoe 1 capsule by mouth once dailyVenlafaxine 75 mg capsule,extended release 24hr Discontinued 75 MG PO Daily August 17, 2021 12:00am April 17, 2024 2:26pmStart: 28-89-1080Dufvqvktnhd Active MG PO August 17, 2021 1:00am Problems Active Problems Problem ClassificationProblemDateDocumented DateEpisodic/ChronicAnxiety disorders (20 sources)Generalized anxiety disorder; Translations: [Generalized anxiety disorder]Onset: 641942-73-8636SdjjonvFvijbexcn and vision defects (20 sources)Eye / vision finding; Translations: [Unspecified visual disturbance] 68-08-3250BpyhdriaZsnaattz of urinary tract (8 sources)History of calculus of kidney; Translations: [Personal history of urinary calculi]63-39-8068BlaiyktqUhrjrqajxn associated with dizziness or vertigo (20 sources)Active cochlear Meniere's disease; Translations: [Meniere's disease, right ear]Onset: 485146-80-2576FsogvoyKcfacysmsv associated with dizziness or vertigo (1 source)Conditions associated with dizziness or vertigoDeficiency and other anemia (5 sources)Anemia, unspecified; Translations: [Anemia, unspecified]11-02-2023 EpisodicDeficiency and other anemia (18 sources)Iron deficiency anemia; Translations: [Iron deficiency anemia, unspecified]97-09-4405NfwcdtpdOwyidnccli and other anemia (8 sources)Deficiency and other anemiaDiabetes mellitus with complications (20 sources)Type 2 diabetes mellitus; Translations: [Type 2 diabetes mellitus with hyperglycemia]Onset: 95-32-8014EniwaaeFjrvhxhw mellitus without complication (8 sources)Type 2 diabetes mellitus without complications; Translations: [Diabetes mellitus without mention ofcomplication, type II or unspecified type, not stated as uncontrolled]52-82-2511JvvvnivZlunqovjw of lipid metabolism (9 sources)Dyslipidemia; Translations: [Hyperlipidemia, unspecified]Chronic Esophageal disorders (14 sources)Gastroesophageal reflux disease; Translations: [Gastro-esophageal reflux disease without esophagitis]Onset: 050238-22-9793IpvzvldRczlecdey hypertension (20 sources)Essential (primary) hypertension; Translations: [Essential hypertension]Onset: 80-56-3564AegwduwUivxxach (20 sources)Glaucoma; Translations: [Unspecified glaucoma]Onset: 02-06-2024 68-09-5466EsmotaqUwdbvdnz; including migraine (2 sources)Migraine; Translations: [Migraine, unspecified, not intractable, without status migrainosus]71-56-2708VojtyuwEvjxwmekhvkci and screening for infectious disease (15 sources)Contact with and (suspected) exposure to other viral communicable diseases; Translations: [Contact with and (suspected) exposure to other viral communicable diseases]Onset: 02-07-2022 Resolved: 22-18-0586KlbnmrycGgwlfazsa disorders (17 sources)Irregular periods; Translations: [Irregular menstruation, unspecified]Onset: 689379-74-8831VekvlasPifdlvdlhjwea mental health disorders (13 sources)Disorders of initiating and maintaining sleep; Translations: [Insufficient sleep syndrome]ChronicMood disorders (8 sources)Depressive disorder; Translations: [Depression]26-92-3022UzeuckiTvtuk connective tissue disease (12 sources)Pain of right calf; Translations: [Pain in right lower leg] 88-71-3122MgrmmlxkLlzoi connective tissue disease (1 source)Pain in right lower leg; Translations: [Pain in right lower leg]Onset: 19-58-3231VkqggyypLrnkc disorders of stomach and duodenum (1 source)IndigestionOnset: 94-29-7303TlgjijouRzksr ear and sense organ disorders (2 sources)Sensorineural hearing loss, unilateral, right ear, with unrestricted hearing on the contralateral side; Translations: [Sensorineural hearing loss, unilateral]33-29-9822DpqcuruOoslj ear and sense organ disorders (1 source)Sensorineural hearing loss, bilateral; Translations: [Sensorineural hearing loss, bilateral]54-56-4112UgtltaxQjdel ear and sense organ disorders (3 sources)Ear sensations - finding; Translations: [Other specified disorders of ear, bilateral]99-89-2343EwbrfrlaVurpq ear and sense organ disorders (1 source)Bilateral tinnitus; Translations: [Tinnitus, bilateral]02-11-2025 EpisodicOther ear and sense organ disorders (1 source)Other specified disorders of ear, bilateral; Translations: [Other specified disorders of ear, bilateral]Onset: 88-51-3351ZvffjdjrMlqxv ear and sense organ disorders (1 source)Tinnitus, bilateral; Translations: [Tinnitus, bilateral]Onset: 65-74-0193GsmgsimaYtcgn female genital disorders (1 source)Abnormal uterine bleeding; Translations: [Abnormal uterine and vaginal bleeding, unspecified]32-48-7833NhhxuqeHpbhd female genital disorders (2 sources)Abnormal uterine and vaginal bleeding, unspecified; Translations: [Abnormal uterine and vaginal bleeding, unspecified]Onset: 31-79-2841Sluwdho Other gastrointestinal disorders (19 sources)Diarrhea; Translations: [Diarrhea, unspecified]78-19-2267Ojystujo Other gastrointestinal disorders (1 source)HeartburnOnset: 01-48-5745DemriuoiOeabb lower respiratory disease (15 sources)Dyspnea on exertion; Translations: [Other forms of dyspnea]Episodic Other nutritional; endocrine; and metabolic disorders (1 source)Metabolic syndrome; Translations: [METABOLIC SYNDROME]Onset: 44-39-5604OpwvddjXwozp nutritional; endocrine; and metabolic disorders (20 sources)Body mass index 40+ - severely obese; Translations: [Body mass index (BMI) 50.0-59.9, adult]Onset: 520878-16-9822RmkifbsNhwin nutritional; endocrine; and metabolic disorders (1 source)Body mass index (BMI) 50.0-59.9, adultChronicOther nutritional; endocrine; and metabolic disorders (8 sources)Severe obesity; Translations: [Class 3 severe obesity with body mass index (BMI) of 60.0 to 69.9 inadult]48-46-9627HtrtxfsAxqsw nutritional; endocrine; and metabolic disorders (8 sources)Morbid obesity; Translations: [Body mass index (BMI) 60.0-69.9, adult]28-19-1176LigdusgNvena nutritional; endocrine; and metabolic disorders (8 sources)Abnormal weight gain; Translations: [Abnormal weight gain]04-07-2025 EpisodicOther screening for suspected conditions (not mental disorders or infectious disease) (19 sources)Patient encounter status; Translations: [Encounter for screening mammogram for malignant neoplasm of breast]Onset: 605027-65-8134Anqksnfj Other upper respiratory infections (19 sources)Acute maxillary sinusitis, unspecified; Translations: [Acute maxillary sinusitis]EpisodicOtitis media and related conditions (1 source)Other acute nonsuppurative otitis media, left earEpisodicResidual codes; unclassified (13 sources)Idiopathic sleep related non-obstructive alveolar hypoventilation; Translations: [Idiopathic sleep related nonobstructive alveolar hypoventilation] ChronicResidual codes; unclassified (20 sources)Obstructive sleep apnea syndrome; Translations: [Obstructive sleep apnea (adult) (pediatric)]Onset: 185714-64-4819ZwkxruyThqfioli codes; unclassified (1 source)Obstructive sleep apnea (adult) (pediatric)ChronicResidual codes; unclassified (1 source)Idiopathic sleep related nonobstructive alveolar hypoventilation ChronicResidual codes; unclassified (1 source)Sleep apnea; Translations: [Sleep apnea, unspecified]71-85-4386Flpojwa Residual codes; unclassified (1 source)Sleep apnea, unspecified; Translations: [Sleep apnea, unspecified] Onset: 00-03-2235QdcffacLdbcfwpcn and history of mental health and substance abuse codes (2 sources)Standardized adult depression screening tool completed ; Translations: [Encounter for screening fordepression]Onset: EpisodicUnclassified (3 sources)CONTACT W/AND (SUSP) EXPOS COVID-19; Translations: [CONTACT W/AND (SUSP) EXPOS COVID-19]Onset: 25-59-7074Tizkufhhfkqs (8 sources)R06.09 - Other forms of dyspneaUnclassified (1 source)Gynecologic ExamOnset: 76-32-8815Wxifzkpnbrgg (1 source)Meniere'sOnset: 02-11-2025 Past or Other Problems Problem ClassificationProblemDateDocumented DateEpisodic/ChronicAbdominal pain (20 sources)Unspecified abdominal pain; Translations: [Flank pain]Onset: 02-25-2017 Resolved: 18-17-0906LygdtfyvPksvluh obstructive pulmonary disease and bronchiectasis (20 sources)Bronchitis; Translations: [Bronchitis, not specified as acute or chronic]Onset: 770294-81-7468HjstufluAfuwqdhmti associated with dizziness or vertigo (20 sources)Benign paroxysmal positional vertigo; Translations: [Benign paroxysmal vertigo, unspecified ear]Onset: 825750-79-1395Obgumhyb Deficiency and other anemia (20 sources)Anemia; Translations: [Anemia, unspecified]Onset: 02-06-2024 56-00-5331RuegijzdJ Codes: Natural/environment (20 sources)Cat scratch - wound; Translations: [Scratched by cat, initial encounter]Onset: 02-06-2024 Resolved: 491619-21-2303YjvbugrlEjbpshxb; including migraine (20 sources)Headache; Translations: [Headache]Onset: EpisodicMood disorders (2 sources)Mood disordersOnset: Nausea and vomiting (20 sources)Nausea; Translations: [Nausea]Onset: 02-06-2024 Resolved: 420726-70-6054QqchbzekQkuegxdxjncsg gastroenteritis (20 sources)Gastroenteritis; Translations: [Noninfective gastroenteritis and colitis, unspecified]Onset: 02-06-2024 Resolved: 852471-06-4847TystofzhTdgum female genital disorders (1 source)Noninflammatory disorder of uterus, unspecified; Translations: [NONINFLAMMATORY DISORDER UTERUS UNS]Onset: 58-89-4247TmedbchuPidaxub cyst (20 sources)Unspecified ovarian cyst, right side; Translations: [Cyst of ovary] Onset: 57-99-7820ZbsbvxsiZfnldfa and strains (20 sources)Lower back injury; Translations: [Strain of muscle, fascia and tendon of lower back, initial encounter]Onset: 832488-03-1199Cmovnujp Unclassified (1 source)CONTACT W/AND (SUSP) EXPOS COVID-19; Translations: [CONTACT W/AND (SUSP) EXPOS COVID-19]Onset: 56-37-7916Vymfksehcxzb (2 sources)Onset: Viral infection (1 source)COVID-19 Results Test NameValueInterpretationReference DfouxXcpnmfbwFmN6c HPLC (Bld) [Mass fraction]Ordered By: April Ahumada on 16-70-1927BrK9c (Bld) [Mass fraction]5.9 % [facility] HospitalBasophils Auto (Bld) [#/Vol]Ordered By: Ely Dodge on 36-67-7652Ozsfmtfbd (Bld) [#/Vol]0.0 10 3/uL0.0-0.1FWestern Reserve HospitalBasophils/100 WBC Auto (Bld)Ordered By: Ely Echo on 88-89-2619Waczlknut/100 WBC (Bld)0.6 %0.2-2.0[facility] Eosinophils/100 WBC Auto (Bld)Ordered By: Ely Echo on 04-21-2025 Eosinophils/100 WBC (Bld)0.8 %Low0.9-7.0[facility] Erythrocyte distribution width Auto (RBC) [Ratio]Ordered By: Ely Echo on 62-53-9937Gbeqzsanvrs distribution width (RBC) [Ratio]24.5 %High11.0-15.0 [facility] HospitalHematocrit Auto (Bld) [Volume fraction]Ordered By: Ely Echo on 25-62-7116Gvoxzmrnoo (Bld) [Volume fraction]36.8 % 36.0-48.0[facility] HospitalHemoglobin [Mass/volume] in Blood Ordered By: Ely Echo on 19-20-4663Oljumjvxog (Bld) [Mass/Vol]11.4 g/dLLow 12.0-16.0[facility] HospitalIron binding capacity [Mass/volume] in Serum or PlasmaOrdered By: Ely Echo on 91-68-0813Esdo binding capacity [Mass/Vol]320.0 ug/dL250.0-450.0[facility] HospitalIron saturation [Mass Fraction] in Serum or PlasmaOrdered By: Ely Echo on 28-45-7681Tqvp saturation [Mass fraction]10.6 %[facility] HospitalLaboratory - Chemistry and Chemistry - challengeOrdered By: Ely Echo on 04-21-2025 Ferritin [Mass/Vol]40.0 ng/mL8.0-252.0[facility] HospitalIron [Mass/Vol]34.0 ug/dLLow50.0-170.0[facility] HospitalLaboratory - Hematology and Cell countsOrdered By: Ely Echo on 19-93-0791Gecoitbx granulocytes/100 WBC (Bld)0.5 %0.0-0.5FWestern Reserve Hospital Leukocytes [#/volume] corrected for nucleated erythrocytes in Blood by Automated counOrdered By: Elyfredy Dodge on 07-24-0756SDV corrected for nucl RBC Auto (Bld) [#/Vol]6.6 10 3/uL4.0-11.0[facility] HospitalLymphocytes Auto (Bld) [#/Vol]Ordered By: Ely Echo on 25-75-0325Otyvobzwfse (Bld) [#/Vol]1.3 10 3/uL1.2-3.8[facility] HospitalLymphocytes/100 WBC Auto (Bld)Ordered By: Ely Echo on 24-30-3755Fmibspcuvoy/100 WBC (Bld)19.0 %Low20.5-60.0[facility] HospitalMCH Auto (RBC) [Entitic mass] Ordered By: Ely Echo on 35-58-7224KFF (RBC) [Entitic mass]24.8 pgLow 26.7-34.0[facility] HospitalMCHC Auto (RBC) [Mass/Vol]Ordered By: Ely Echo on 20-92-4120ZGIE (RBC) [Mass/Vol]31.0 g/dL29.9-35.2FWestern Reserve HospitalMCV Auto (RBC) [Entitic vol]Ordered By: Ely Echo on 75-96-6357EFA (RBC) [Entitic vol]80.2 fLLow81.0-99.0[facility] HospitalMonocytes Auto (Bld) [#/Vol]Ordered By: Ely Echo on 04-21-2025 Monocytes (Bld) [#/Vol]0.4 10 3/uL0.3-0.8[facility] Monocytes/100 WBC Auto (Bld)Ordered By: Ely Echo on 04-21-2025 Monocytes/100 WBC (Bld)5.6 %1.7-12.0[facility] HospitalNeutrophils Auto (Bld) [#/Vol]Ordered By: Ely Dodge on 65-44-2628Tejtdpkgniy (Bld) [#/Vol]4.8 10 3/uL1.4-6.5FWestern Reserve HospitalNeutrophils/100 WBC Auto (Bld)Ordered By: Ely Dodge on 31-11-4862Ovainashnqx/100 WBC (Bld)73.5 %43.0-75.0[facility] HospitalNo Panel InformationOrdered By: Ely Dodge on 57-94-8199Ywypxtxznzv # (Auto)0.1 10 3/uL0.0-0.7FWestern Reserve HospitalImmature Granulocyte # (Auto)0.03 10 3/uL0.00-0.03 [facility] HospitalPlatelet mean volume Auto (Bld) [Entitic vol] Ordered By: Ely Dodge on 19-79-1225Vpbrzhel mean volume (Bld) [Entitic vol] 10.0 fL9.5-13.5FWestern Reserve HospitalPlatelets Auto (Bld) [#/Vol] Ordered By: Ely Echo on 95-96-7037Fkzqqrilh (Bld) [#/Vol]176 10 3/uL 150-450[facility] HospitalRBC Auto (Bld) [#/Vol]Ordered By: Ely Echo on 98-76-3014TLI (Bld) [#/Vol]4.59 10 6/uL4.20-5.40[facility] HospitalMAMM SCREENING BILATERAL W CADon 19-96-1144UGFU SCREENING BILATERAL W CADMAMM SCREENING BILATERAL W CAD NATI K TUCKER 1985 [id number] EXAM: MAMM SCREENING BILATERAL W CAD, 04/16/2025 10:27 AM CLINICAL INDICATIONS: Screening, Encounter for screening mammogram for malignant neoplasm of breast COMPARISON: No prior studies currently available for comparison. TECHNIQUE: Bilateral digital tomosynthesis MLO and CC views of the breasts were obtained, with creation of synthetic 2D views. Computer aided detection was utilized. FINDINGS: There are scattered areas of fibroglandular density. Small circumscribed benign bilateral breast masses. There are no suspicious masses, calcifications, or areas of architectural distortion. IMPRESSION: No mammographic evidence of malignancy. BI-RADS: BI-RADS 2 - Benign RECOMMENDATION: Routine screening mammogram in 1 year. RISK ASSESSMENT: TC Lifetime risk: 11.32%. The patient's reported personal and family medical history was used calculate their Tyrer-Cuzick lifetime risk of malignancy. Scores less than 20% are not considered high risk per ACR guidelines and patient should continue with the above recommendation. Finalized by Stanley Madsen MD on 04/17/2025 12:24 PM 2 b MAMM 1 YRNormalSelect Medical Specialty Hospital - CincinnatiCBC (NO DIFF)on 80-44-2187Jbhpiqtahoh distribution width (RBC) [Ratio]30.1 %High11.5-15[facility] Comment on above:Performed By: #### CBC #### [facility] ([facility]) [address] [place] [address] VIRHematocrit (Bld) [Volume fraction]37.6 %Ocgrdb27-65BxkUvmzohSelect Medical Specialty Hospital - CincinnatiComment on above:Performed By: #### CBC #### [facility] ([facility]) [address] [place] [address] VIRHemoglobin (Bld) [Mass/Vol]12.4 g/fCVxsndj50.7-15.5PMercy Health Lorain HospitalComment on above:Performed By: #### CBC #### [facility] ([facility]) [address] [place] [address] [facility]ITALH (RBC) [Entitic mass]24.7 nbRft34-08OmeAjpzuzSelect Medical Specialty Hospital - CincinnatiComment on above:Performed By: #### CBC #### [facility] ([facility]) [address] [place] [address] [facility] ([facility] [Mass/Vol]32.9 g/rKRfqycc44-51GhuCkjjpdSelect Medical Specialty Hospital - CincinnatiComment on above:Performed By: #### CBC #### [facility] ([facility]) [address] [place] [address] VIRMCV (RBC) [Entitic vol]75 mWOxf53-738XkiFtehzpSelect Medical Specialty Hospital - CincinnatiComment on above:Performed By: #### CBC #### [facility] ([facility]) [address] [place] [address] VIRPlatelet mean volume (Bld) [Entitic vol]8.7 fLNormal7-12 [facility] - CincinnatiComment on above:Performed By: #### CBC #### [facility] ([facility]) [address] [place] [address] VIRPlatelets (Bld) [#/Vol]197 10*3/aKMdnuav332-784LmaDuyngiSelect Medical Specialty Hospital - CincinnatiComment on above:Performed By: #### CBC #### [facility] ([facility]) [address] [place] [address] VIRRBC COUNT5.00 X10E12/LNormal3.8-5.2PMercy Health Lorain HospitalComment on above:Performed By: #### CBC #### [facility] ([facility]) [address] [place] [address] VIRWBC (Bld) [#/Vol]6.7 10*3/uLNormal4-11[facility] - CincinnatiComment on above:Performed By: #### CBC #### [facility] ([facility]) [address] [place] [address] VIRFERRITINon 65-97-7053Xufhghfx [Mass/Vol]28 ng/tEJcjlvd03-016 [facility] - CincinnatiComment on above:Performed By: #### FERR #### [facility] ([facility]) [address] [place] [address] VIRIRON AND TIBCon 92-69-1687Cfdt [Mass/Vol]47 ug/pXEsg61-290 [facility] - CincinnatiComment on above:Performed By: #### FEPR #### [facility] ([facility]) [address] [place] [address] VIRIRON VEVVPHA950 ug/dXKygiox520-914BlhPvfmanSelect Medical Specialty Hospital - Cincinnati Comment on above:Performed By: #### FEPR #### [facility] ([facility]) [address] [place] [address] VIRIRON AZZKVPPALY86 % FGLDRKKVAZIsf49-84DlyAhbhmt [facility]ont HospitalComment on above:Performed By: #### FEPR #### [facility] ([facility]) [address] [place] [address] VIRTransferrin [Mass/Vol]277 mg/yANgqcmc421-961VvgXkzfgt [facility] HospitalComment on above:Performed By: #### FEPR #### [facility] ([facility]) [address] [place] [address] VIRTHYROID PROFILE INCLUDES TSH FT4on 65-39-7597Cjql T4 [Mass/Vol]0.87 ng/dLNormal0.61-1.60ProBellville Medical CenterComment on above: Performed By: #### THYR #### [facility] ([facility]) [address] [place] [address] VIRTSH3.41 uIU/mLNormal0.49-4.67[facility] Comment on above:Performed By: #### THYR #### [facility] ([facility]) [address] [place] [address] VIRUS PELVIC WITH TRANSVAGINALon 71-22-8463WV PELVIC WITH TRANSVAGINALUS PELVIC WITH TRANSVAGINAL Clinical history: Dysmenorrhea Findings:Transabdominal ultrasound was performed of the pelvis.. Endovaginal sonography was also performed to better evaluate the pelvic and adnexal structures.. Uterus measures 12.4 cm in length and 6.2 cm AP diameter. In the anterior fundus there is a solid mass measuring 3.7 x 4.0 x 4.0 cm. This is likely a fibroid. Endometrium measures 12.8 mm. Nabothian cysts present. Right ovary not visualized overlying bowel gas. Left ovary 4.8 x 3.1 x 3.4 cm. Functional cyst left ovary measuring 2.5 x 2.4 x 1.9 cm. Impression: Intrauterine fibroid. Otherwise unremarkable left ovary. Finalized by Baldo Shen MD on 04/16/2025 12:42 [facility] HospitalHIGH RISK HPV W/GENOon 50-08-4916ZST 16NegativeNormalNegativeThe [facility] Ambulatory PPGComment on above:Performed By: #### HPV #### [facility] ([facility]) [address] [place] [address] VIRHPV 18NegativeNormalNegativeThe [facility] Ambulatory PPGComment on above:Performed By: #### HPV #### [facility] ([facility]) [address] [place] [address] VIROTHER HIGH RISK HPVNegativeNormalNegUniversity Hospitals [facility] Ambulatory PPGComment on above:Result Comment: HPV types 31, 33, 35, 39, 45, 52, 56, 58, 59, 66, and 68 DNA were undetectable.Performed By: #### HPV #### [facility] ([facility]) [address] [place] [address] VIRCeliacon 70-45-5645Qroftnowis Gliadin Abs, SnX1Tfnxgn3-05Nln [facility] Physician GroupComment on above:Result Comment: Negative 0 - 19 Weak Positive 20 - 30 Moderate to Strong Positive >30Performed By: #### CELIAC #### [facility] ,Deamidated Gliadin Abs, DeR1Svtfjp7-30Noh [facility] Physician GroupComment on above:Result Comment: Negative 0 - 19 Weak Positive 20 - 30 Moderate to Strong Positive >30Performed By: #### CELIAC #### [facility] ,Endomysial Antibody IgANegativeNormalNegativeThe [facility] Comment on above:Performed By: #### CELIAC #### [facility] ,Immunoglobulin A, Qn, Wjtfa959 mg/fAWpazcf60-799Vyn [facility] Comment on above:Result Comment: Performed at: [facility] [address] [place], [place] [id number] [employer] Actuary: Eddie You PhD, Phone: [phone] PERFORMED BY: [facility] José [place] [id number] PATHOLOGIST SUPPLY CATALOGUER ABIODUN YEPEZ M.D.Performed By: #### CELIAC #### [facility] ,T-Transglutaminase (tTG) IgA<3Ryyvtn5-7Oph [facility] Physician GroupComment on above:Result Comment: Negative 0 - 3 Weak Positive 4 - 10 Positive >10 Tissue Transglutaminase (tTG) has been identified as the endomysial antigen. Studies have demonstr- ated that endomysial IgA antibodies have over 99% specificity for gluten sensitive enteropathy.Performed By: #### CELIAC #### [facility] ,T-Transglutaminase (tTG) [id number] [facility] Physician GroupComment on above:Result Comment: Negative 0 - 5 Weak Positive 6 - 9 Positive >9Performed By: #### CELIAC #### [facility] ,Serum gliadin peptide IgA antibody assay (units/volume)Ordered By: Adonis Ferguson on 68-78-6910Xukjbtz peptide IgA Qn (S)6 units0-[facility] HospitalComment on above:Negative 0 - 19 Weak Positive 20 - 30 Moderate to Strong Positive >30Serum gliadin peptide IgG antibody assay (units/volume) Ordered By: Adonis Ferguson on 59-98-4226Hiokydn peptide IgG Qn (S)2 units0-19 [facility] HospitalComment on above:Negative 0 - 19 Weak Positive 20 - 30 Moderate to Strong Positive >30Serum or plasma IgA measurement (mass/volume)Ordered By: Adonis Ferguson on 41-18-7895TvB [Mass/Vol]295 mg/dL 87-352[facility] HospitalComment on above:Performed at: [facility] [address] [place], [place] [id number] Director: Eddie You PhD, Phone: [phone] tissue transglutaminase (tTG) IgA antibody assay (units/volume)Ordered By: Adonis Ferguson on 34-97-7587dWL IgA Qn (S)<2 U/mL0-3FWestern Reserve HospitalComment on above:Negative 0 - 3 Weak Positive 4 - 10 Positive >10 Tissue Transglutaminase (tTG) has been identified as the endomysial antigen. Studies have demonstr- ated that endomysial IgA antibodies have over 99% specificity for gluten sensitive enteropathy.Serum tissue transglutaminase (tTG) IgG antibody assay (units/volume)Ordered By: Adonis Ferguson on 68-74-7041sDQ IgG Qn (S)3 U/mL0-5FWestern Reserve HospitalComment on above:Negative 0 - 5 Weak Positive 6 - 9 Positive >9MR BRAIN IAC W WO CONTon 97-34-7265MM BRAIN IAC W WO CONTMR BRAIN IAC W WO CONT HISTORY: A 39-year-old female with a history of the dizziness and vertigo. Meniere's disease of theright ear. TECHNIQUE: Multiplanar and multisequence MRI examination of the brain and internal auditory canals is performed without and with intravenous contrast administration. COMPARISON: Comparison is made with prior MRI examination of the brain of 01/01/2024. FINDINGS: Images through the temporal regions demonstrate normal and symmetrical internal auditory canals. The cranial nerves VII and VIII are normal and symmetrical bilaterally. There is no evidenceof abnormal enhancing lesion to suggest acoustic neuroma or mass. No evidence of abnormal enhancement in the inner ears. The cerebellopontine angles are clear. The cochleae and semicircular canals are unremarkable. The mastoid air cells are clear. Both Meckel's caves are normal. Both trigeminal nerves are normal intracranially. The ventricular system is normal in size and configuration. There is normal differentiation of grayand white matter.There is no evidence of restricted diffusion to suggest acute or subacute age of infarction. There is no evidence of intracranial mass, hemorrhage or acute pathology. The cerebellum and brainstem are unremarkable. No evidence of mass effect, midline shift of the structures or extra-axial fluid collections. Postcontrast examination reveals no abnormal meningeal or parenchymal enhancement. Both distal internal carotid and vertebrobasilar arteries are patent. Dural venous sinuses are patent. Both jugular and sigmoid sinuses are symmetrical. Paranasal sinuses are clear. IMPRESSION: 1. Cranial nerves VII and VIII are normal and symmetrical. The internal auditory canals are normal. 2. No evidence of acoustic neuroma or mass lesion in the cerebellopontine angles. 3. Cochleae and semicircular canals are unremarkable. 4. No evidence of intracranial mass, abnormal enhancing lesion or acute pathology. 5. Paranasal sinuses and mastoid air cells are clear. Finalized by Jonnathan Espinoza MD on 03/07/2025 3:45 PMNormalProMedica Gardens Regional Hospital & Medical Center - Hawaiian GardensAlbumin [Mass/volume] in Serum or PlasmaOrdered By: Ely Dodge on 01-11-5925Awgzuuz [Mass/Vol]4.0 g/dL2.9-4.4FWestern Reserve Hospital Basophils Auto (Bld) [#/Vol]Ordered By: Ely Dodge on 31-33-8150Gxtyavjdx (Bld) [#/Vol]0.0 10 3/uL0.0-0.1FWestern Reserve HospitalBasophils/100 WBC Auto (Bld)Ordered By: Ely Dodge on 06-14-4410Qcrmbtmwk/100 WBC (Bld)0.6 %0.2-2.0[facility] HospitalEosinophils/100 WBC Auto (Bld)Ordered By: Ely Dodge on 98-53-8738Flqhoagoawe/100 WBC (Bld)0.7 %Low0.9-7.0 [facility] HospitalErythrocyte distribution width Auto (RBC) [Ratio]Ordered By: Ely Dodge on 26-62-5003Tahiuffptpe distribution width (RBC) [Ratio]17.7 %High11.0-15.0[facility] HospitalGlobulin Calc (S) [Mass/Vol]Ordered By: Ely Dodge on 37-40-2310Kcmgrljm (S) [Mass/Vol]4.5 g/dLPromedica Fostoria Community HospitalGlomerular filtration rate (GFR) estimation in non- AmericanOrdered By: Ely Dodge on 03-04-2025 GFR/1.73 sq M.predicted among non-blacks MDRD (S/P/Bld) [Vol rate/Area] mL/min/{1.73_m2}>=60 mL/min/1.73m 2FWestern Reserve HospitalHematocrit Auto (Bld) [Volume fraction]Ordered By: Ely Dodge on 31-88-1006Bswalaimim (Bld) [Volume fraction]32.6 %Low36.0-48.0[facility] Hemoglobin [Mass/volume] in BloodOrdered By: Ely Dodge on 03-04-2025 Hemoglobin (Bld) [Mass/Vol]9.3 g/dLLow12.0-16.0[facility] IgA [Mass/volume] in Serum or PlasmaOrdered By: Elyjoana Dodge on 40-76-3412AlD [Mass/Vol]333 mg/tM32-274RypjohqccPromedica Fostoria Community HospitalIgG [Mass/volume] in Serum or PlasmaOrdered By: Ely Echo on 44-67-7475JvK [Mass/Vol]964 mg/dL 586-1602Prom[facility] Fostoria Community HospitalIgM [Mass/volume] in Serum or Plasma Ordered By: Ely Echo on 75-09-5270YvT [Mass/Vol]286 mg/vSEbtzivnl85-384 [facility] HospitalImmunoglobulin light chains.kappa.free [Mass/volume] in SerumOrdered By: Ely Dodge on 38-33-0856Zmcmjtxlihgogo light chains.kappa.free (S) [Mass/Vol]24.4 mg/LAbnormal3.3-19.4FWestern Reserve HospitalImmunoglobulin light chains.kappa.free/Immunoglobulin light chains.lambda.free [MassOrdered By: Ely Echo on 03-04-2025 Immunoglobulin light chains.kappa.free/Immunoglobulin light chains.lambda.free (S) [Mass ratio]1.120.26-1.65[facility] HospitalComment on above: Performed at: - [facility] [id number] Director: Eddie You PhD, Phone: [phone] light chains.lambda.free [Mass/volume] in Serum or PlasmaOrdered By: Ely Dodge on 47-16-2620Rlzyzeafkcxqdn light chains.lambda.free [Mass/Vol]21.7 mg/L5.7-26.3 [facility] HospitalIron binding capacity [Mass/volume] in Serum or PlasmaOrdered By: Ely Dodge on 05-16-7910Nnnx binding capacity [Mass/Vol] 419.0 ug/dL250.0-450.0[facility] HospitalIron saturation [Mass Fraction] in Serum or PlasmaOrdered By: Ely Dodge on 73-91-0073Lrif saturation [Mass fraction]5.0 %[facility] HospitalLaboratory - Chemistry and Chemistry - challengeOrdered By: Ely Dodge on 03-04-2025 Albumin [Mass/Vol]3.9 g/dL3.4-5.0[facility] HospitalALP [Catalytic activity/Vol]150 U/QFywq88-158WtnwymkmmPromedica Fostoria Community HospitalALT [Catalytic activity/Vol]45 U/G72-73UluybfzenPromedica Fostoria Community HospitalAST [Catalytic activity/Vol]25 U/U97-33WhowcrvpiPromedica Fostoria Community HospitalBilirubin [Mass/Vol]0.6 mg/dL0.2-1.0[facility] HospitalCalcium [Mass/Vol]9.5 mg/dL 8.5-10.1FWestern Reserve HospitalChloride [Moles/Vol]100 mmol/L98-107 [facility] HospitalCO2 [Moles/Vol]29.4 mmol/L21.0-32.0[facility] HospitalCobalamin (Vitamin B12) [Mass/Vol]498 pg/oJ274-3680 [facility] Community HospitalComment on above:Performed at: - [facility] [id number] Director: Eddie You PhD, Phone: [phone] [Mass/Vol]0.73 mg/dL0.55-1.02[facility] Community HospitalFerritin [Mass/Vol]9.0 ng/mL8.0-252.0[facility] HospitalGFR/1.73 sq M.predicted MDRD (S/P/Bld) [Vol rate/Area]mL/min/{1.73_m2}>=60 mL/min/1.73m 2FWestern Reserve HospitalGlucose [Mass/Vol]108 mg/dLHigh 74-106Prom[facility] Community HospitalIron [Mass/Vol]21.0 ug/dLLow50.0-170.0 [facility] HospitalLDH [Catalytic activity/Vol]133 U/L81-234 [facility] HospitalPotassium [Moles/Vol]3.4 mmol/LLow3.5-5.1 [facility] HospitalProtein [Mass/Vol]8.4 g/dLHigh6.4-8.2FMercy Health St. Charles Hospitalodium [Moles/Vol]140 mmol/Q982-191OmegwzsbwPromedica Fostoria Community HospitalUrea nitrogen [Mass/Vol]11.0 mg/dL7.0-18.0[facility] HospitalUrea nitrogen/Creatinine [Mass ratio]15.1 mg/mgPromedica Fostoria Community HospitalLaboratory - Hematology and Cell countsOrdered By: Ely Dodge on 20-10-2070XZB (Bld) [Velocity]108 mm/hHigh<=20[facility] HospitalImmature granulocytes/100 WBC (Bld)0.7 %High0.0-0.5FWestern Reserve HospitalLeukocytes [#/volume] corrected for nucleated erythrocytes in Blood by Automated counOrdered By: Ely Dodge on 01-90-4178XWG corrected for nucl RBC Auto (Bld) [#/Vol]7.2 10 3/uL4.0-11.0[facility] Lymphocytes Auto (Bld) [#/Vol]Ordered By: Ely Dodge on 03-04-2025 Lymphocytes (Bld) [#/Vol]1.1 10 3/uLLow1.2-3.8[facility] Lymphocytes/100 WBC Auto (Bld)Ordered By: Ely Dodge on 03-04-2025 Lymphocytes/100 WBC (Bld)15.8 %Low20.5-60.0[facility] HospitalMCH Auto (RBC) [Entitic mass]Ordered By: Ely Dodge on 34-84-2459AIH (RBC) [Entitic mass]19.7 pgLow26.7-34.0[facility] HospitalComment on above:HYPOCHROMASIA 1+MCHC Auto (RBC) [Mass/Vol]Ordered By: Ely Dodge on 15-62-0264RMZP (RBC) [Mass/Vol]28.5 g/dLLow29.9-35.2FWestern Reserve HospitalMCV Auto (RBC) [Entitic vol]Ordered By: Ely Dodge on 20-11-9346XRB (RBC) [Entitic vol]69.2 fLLow81.0-99.0[facility] HospitalMonocytes Auto (Bld) [#/Vol]Ordered By: Ely Dodge on 83-43-4199Gklgsgvbz (Bld) [#/Vol]0.3 10 3/uL0.3-0.8[facility] HospitalMonocytes/100 WBC Auto (Bld)Ordered By: Ely Dodge on 36-73-0475Qrordgvck/100 WBC (Bld)4.5 % 1.7-12.0[facility] Community HospitalNeutrophils Auto (Bld) [#/Vol]Ordered By: Ely Dodge on 80-49-2215Oyqgemlphzq (Bld) [#/Vol]5.6 10 3/uL1.4-6.5 [facility] HospitalNeutrophils/100 WBC Auto (Bld)Ordered By: Ely Dodge on 95-56-3688Bfcuefswczr/100 WBC (Bld)77.7 %High43.0-75.0 [facility] HospitalNo Panel InformationOrdered By: Ely Dodge on 47-63-4019T-Reactive Protein, Quantitative2.01 mg/dLHigh<=0.50Prom[facility] HospitalEosinophils # (Auto)0.1 10 3/uL0.0-0.7FWestern Reserve HospitalImmature Granulocyte # (Auto)0.05 10 3/uLHigh0.00-0.03[facility] HospitalProtein Electrophoresis M-SpikeNot Observed g/dLNot ObservedPromedica Fostoria Community HospitalProtein Electrophoresis NoteComment. [facility] HospitalComment on above:Protein electrophoresis scan will follow via computer,mail, or assigner delivery.Platelet mean volume Auto (Bld) [Entitic vol]Ordered By: Ely Dodge on 61-13-3236Sgwphswu mean volume (Bld) [Entitic vol]9.8 fL9.5-13.5FWestern Reserve HospitalPlatelets Auto (Bld) [#/Vol]Ordered By: Ely Echo on 08-54-0722Hfuksjgvn (Bld) [#/Vol]216 10 3/iO586-543PzzxkuaiaPromedica Fostoria Community HospitalProtein [Mass/volume] in Serum or PlasmaOrdered By: Elyjoana Dodge on 98-92-9059Mmrjtys [Mass/Vol]7.5 g/dL6.0-8.5 [facility] HospitalRBC Auto (Bld) [#/Vol]Ordered By: Ely Echo on 07-89-8374DWZ (Bld) [#/Vol]4.71 10 6/uL4.20-5.40[facility] Community HospitalReticulocytes/100 RBC Auto (Bld)Ordered By: Ely Dodge on 08-15-0508Egjuyurawtcmr/100 RBC (Bld)2.68 %0.60-3.10[facility] Hospitalerum globulin measurement (mass/volume)Ordered By: Ely Dodge on 04-83-0230Hbnumasu (S) [Mass/Vol]3.5 g/dL2.2-3.9[facility] Hospitalerum or plasma albumin/globulin mass ratioOrdered By: Ely Dodge on 35-04-6641Kpawete/Globulin [Mass ratio]0.9 {ratio}[facility] HospitalAlbumin/Globulin [Mass ratio]1.2 {ratio}0.7-1.7FMercy Health St. Charles Hospitalerum or plasma alpha 1 globulin measurement by electrophoresis (mass/volume)Ordered By: Ely Dodge on 55-54-4938Facbo 1 globulin Elph [Mass/Vol]0.3 g/dL0.0-0.4FMercy Health St. Charles Hospitalerum or plasma alpha 2 globulin measurement by electrophoresis (mass/volume)Ordered By: Ely Dodge on 85-52-2826Mevaa 2 globulin Elph [Mass/Vol]0.8 g/dL0.4-1.0[facility] Hospitalerum or plasma anion gap determinationOrdered By: Ely Dodge on 26-94-9146Dixkz gap [Moles/Vol]14.0 mmol/LFMercy Health St. Charles Hospitalerum or plasma beta globulin measurement by electrophoresis (mass/volume)Ordered By: Ely Dodge on 33-66-0124Zfxa globulin Elph [Mass/Vol]1.3 g/dL0.7-1.3FMercy Health St. Charles Hospitalerum or plasma gamma globulin measurement by electrophoresis (mass/volume)Ordered By: Ely Dodge on 93-94-5581Xujjw globulin Elph [Mass/Vol]1.1 g/dL0.4-1.8[facility] Hospitalerum or plasma immunoelectrophoresis interpretationOrdered By: Ely Dodge on 05-83-8719Declwhbkhbwcrl IEP [Interp]Comment.[facility] HospitalComment on above:No monoclonality detected.US venous duplex LE RTon 93-14-1214EY venous duplex LE [facility] [place] [address] Ultrasound Report Signed Patient: Nati Santos MR#: [id number] : 1985 Acct:[id number] Age/Sex: 39 / F ADM Date: 02/06/25 Loc: ER Room: Type: [facility] ER Attending Dr: Ordering Provider: Bartolo Lyons PA-C Date of Service: 02/06/25 US/US venous duplex LE RT: calf pain Copies to: Bartolo Lyons PA-C RIGHT LOWER EXTREMITY VENOUS DUPLEX INDICATION: Right leg pain Unilateral right lower extremity venous duplex Doppler study was obtained utilizing B-mode, color- flow and spectral Doppler. FINDINGS: The right common femoral, femoral, and popliteal veins showed adequate compressibility, color-flow and augmentation. The right posterior tibial and peroneal veins were compressible, as w ell as proximal greater saphenous vein. The contralateral left common femoral vein was compressible with color-flow and augmentation. US/US venous duplex LE RT IMPRESSION: NO EVIDENCE OF DEEP VENOUS THROMBOSIS IN THE RIGHT LOWER EXTREMITY. NO SUPERFICIAL THROMBOPHLEBITIS WAS NOTED. Impression dictated by: Luís Hernandez M.D. 02/07/2025 10:31 AM Dictation Location: [place] [address] Tech: Vanda Priyank Transcribed By: JARVIS 02/07/25 103 Dictated By: Luís Hernandez MD 02/07/25 1031 Signed By: 02/07/[address] [facility] Physician GroupAlanine aminotransferase [Enzymatic activity/volume] in Serum or PlasmaOrdered By: Bartolo Lyons on 45-68-1715TIB [Catalytic activity/Vol]20 U/L7-52[facility] HospitalComment on above:Performed By: #### CMP, CK, DIFF CBC, HS TROP #### [facility] [address] [place] [address] USAAlbumin [Mass/volume] in Serum or Plasma by Bromocresol green (BCG) dye binding methoOrdered By: Bartolo Lyons on 64-73-2282Uvfgvdw BCG dye [Mass/Vol]4.2 g/dL3.5-5.7FWestern Reserve HospitalAlkaline phosphatase [Enzymatic activity/volume] in Serum or PlasmaOrdered By: Bartolo Lyons on 64-35-0694UMZ [Catalytic activity/Vol]106 U/XBjic47-791OgpxtlxqwPromedica Fostoria Community HospitalComment on above:Performed By: #### CMP, CK, DIFF CBC, HS TROP #### [facility] [address] [place] [address] USAAnisocytosis [Presence] in Blood by Light microscopy Ordered By: Bartolo Lyons on 28-33-7154Qfexrusoezav Ql (Bld)ModeratePromedica Fostoria Community HospitalComment on above:Performed By: #### CMP, CK, DIFF CBC, HS TROP #### [facility] [address] [place] [address] USAAppearance of UrineOrdered By: Bartolo Lyons on 02-06-2025 Appearance (U)ClearCleAdena Pike Medical CenterComment on above:Order Comment: Name Collection Type:: Clean-Voided MidstreamPerformed By: #### UA #### [facility] [address] [place] [address] USAAspartate aminotransferase [Enzymatic activity/volume] in Serum or PlasmaOrdered By: Bartolo Lyons on 96-55-6203LBA [Catalytic activity/Vol]18 U/P90-52OgpajnspoPromedica Fostoria Community HospitalComment on above: Performed By: #### CMP, CK, DIFF CBC, HS TROP #### [facility] [address] [place] [address] USABasophils Auto (Bld) [#/Vol]Ordered By: Bartolo Lyons on 47-97-5816Togfjbzdi (Bld) [#/Vol]N/[facility] Basophils/100 WBC Auto (Bld)Ordered By: Bartolo Lyons on 72-24-7975Xyqorbrrk/100 WBC (Bld)N/[facility] HospitalBilirubin Test strip Ql (U)Ordered By: Bartolo Lyons on 50-14-3652Gjesmeggp Ql (U)NegativeNegativePromedica Fostoria Community HospitalBilirubin.total [Mass/volume] in Serum or PlasmaOrdered By: Bartolo Lyons on 49-35-7919Hodooyigi [Mass/Vol]0.6 mg/dL0.3-1.0[facility] Community HospitalComment on above:Performed By: #### CMP, CK, DIFF CBC, HS TROP #### [facility] [address] [place] [address] USACalcium [Mass/volume] in Serum or PlasmaOrdered By: Bartolo Lyons on 11-53-1963Ezhcaqs [Mass/Vol]9.5 mg/dL8.6-10.3FWestern Reserve HospitalComment on above:Performed By: #### CMP, CK, DIFF CBC, HS TROP #### [facility] [address] [place] [address] USACarbon dioxide, total [Moles/volume] in Serum or Plasma Ordered By: Bartolo Lyons on 50-50-4038JQ7 [Moles/Vol]28.7 mmol/L21.0-31.0 [facility] Community HospitalComment on above:Performed By: #### CMP, CK, DIFF CBC, HS TROP #### [place] [address] USAChloride [Moles/volume] in Serum or PlasmaOrdered By: Bartolo Lyons on 12-18-4120Ltnoubgn [Moles/Vol]100 mmol/M31-539RhscxcovqPromedica Fostoria Community HospitalComment on above:Performed By: #### CMP, CK, DIFF CBC, HS TROP #### [place] [address] USAColor of Urine by AutoOrdered By: Bartolo Lyons on 72-97-6964Rmytw (U)Light-yellowYellowPromedica Fostoria Community HospitalComment on above:Order Comment: Name Collection Type:: Clean-Voided MidstreamPerformed By: #### UA #### [place] [address] USAComprehensive Metabolic Panelon 16-05-3448Vduqzpv [Mass/Vol]4.2 g/dLNormal3.5-5.7The [facility] Physician GroupComment on above: Performed By: #### CMP, CK, DIFF CBC, HS TROP #### [place] [address] USACreatinine Clr Calc Zkycjrjv284.95NormalThe [facility] Physician GroupComment on above:Result Comment: PERFORMED BY: [place] [address] PATHOLOGIST SUPPLY CATALOGUER ABIODUN YEPEZ M.D.Performed By: #### CMP, CK, DIFF CBC, HS TROP #### [place] [address] USAGFR/1.73 sq M.predicted MDRD (S/P/Bld) [Vol rate/Area] mL/min/{1.73_m2}NormalThe [facility] Physician GroupComment on above:Performed By: #### CMP, CK, DIFF CBC, HS TROP #### [place] [address] USACreatine kinase [Enzymatic activity/volume] in Serum or PlasmaOrdered By: Bartolo Lyons on 27-58-8354XW [Catalytic activity/Vol]35 U/L 30-223Prom[facility] Community HospitalComment on above:Performed By: #### CMP, CK, DIFF CBC, HS TROP #### [facility] [address] [place] [address] USACreatinine [Mass/volume] in Serum or PlasmaOrdered By: Bartolo Lyons on 49-37-7788Mhvrelwako [Mass/Vol]0.65 mg/dL0.60-1.20[facility] HospitalComment on above:Performed By: #### CMP, CK, DIFF CBC, HS TROP #### [place] [address] USADiff and CBCon 13-25-5096Wfrsj PlateletsSlightBayfront Health St. Petersburg Emergency Room Physician GroupComment on above:Result Comment: PERFORMED BY: [place] [address] PATHOLOGIST SUPPLY CATALOGUER ABIODUN YEPEZ M.D.Performed By: #### CMP, CK, DIFF CBC, HS TROP #### [place] [address] USAMean Corpuscular HGB Conc30.6 g/dLLow32.0-35.0The [facility] Physician GroupComment on above:Performed By: #### CMP, CK, DIFF CBC, HS TROP #### [place] [address] USAMicrocytosisModerateBayfront Health St. Petersburg Emergency Room Physician Group Comment on above:Performed By: #### CMP, CK, DIFF CBC, HS TROP #### [place] [address] USAMonocytes/100 WBC (Bld)20.12 %High0.00-20.00The [facility] Physician GroupComment on above:Result Comment: For adults in ED, MDW > 20.0 may be associated with a higher risk of sepsis during the first 12 hrs of hospital admissionPerformed By: #### CMP, CK, DIFF CBC, HS TROP #### [place] [address] USAMyelocytes1 %High0-0The [facility] Physician GroupComment on above:Performed By: #### CMP, CK, DIFF CBC, HS TROP #### [place] [address] USAOvalocytesSFormerly [facility] Physician GroupComment on above:Performed By: #### CMP, CK, DIFF CBC, HS TROP #### [place] [address] USAPlatelet EstimateNormalNormalNormUF Health Flagler Hospital Physician GroupComment on above:Performed By: #### CMP, CK, DIFF CBC, HS TROP #### [place] [address] USAPoikilocytosisSFormerly [facility] Comment on above:Performed By: #### CMP, CK, DIFF CBC, HS TROP #### [place] [address] USAStomatocytesSFormerly [facility] Comment on above:Performed By: #### CMP, CK, DIFF CBC, HS TROP #### [place] [address] USAWhite Blood Count6.9 [CFU]/mLNormal3.8-11.6The [facility] Physician GroupComment on above:Performed By: #### CMP, CK, DIFF CBC, HS TROP #### [place] [address] USAECG 12 lead ECGon 97-26-9280ZCV [address] [facility] [place] [address] [place] [address] Electrocardiograph Report Signed Patient: Nati Santos MR#: [id number] : 1985 Acct:[id number] Age/Sex: 39 / F ADM Date: 02/06/25 Loc: ER Room: Type: [facility] ER Attending Dr: Ordering Provider: Bartolo Lyons PA-C Date of Service: 02/06/25 ECG/ECG 12 lead ECG: Dizziness Copies to: Test Reason : Blood Pressure : 200/87 mmHG Vent. Rate : 76 BPM Atrial Rate : 76 BPM P-R Int : 176 ms QRS Dur : 72 ms QT Int : 368 ms P-R-T Axes : 53 59 1 degrees QTcB Int : 414 ms Normal sinus rhythm Nonspecific T wave abnormality Abnormal ECG No previous ECGs available Confirmed by MIGNON MA MD ([id number]) on 02/07/2025 12:34:01 AM Referred By: Electronically Signed By: MIGNON MA MD Transcribed By: MUS Signed By Mignon Ma MD 02/07/[address] [facility] Room Physician GroupEosinophils Auto (Bld) [#/Vol]Ordered By: Bartoloeunice Lyons on 24-43-1643Vdtiareppze (Bld) [#/Vol]N/[facility] HospitalEosinophils/100 WBC Auto (Bld)Ordered By: Bartolo Lyons on 50-01-2346Tnfzixjyqzj/100 WBC (Bld)N/[facility] Erythrocyte distribution width [Ratio] by Automated countOrdered By: Bartolo Lyons on 34-93-2200Kykoklyaplb distribution width (RBC) [Ratio]18.2 %High 11.9-15.3FWestern Reserve HospitalComment on above:Performed By: #### CMP, CK, DIFF CBC, HS TROP #### [facility] [address] [place] [address] USAErythrocyte morphology finding [Identifier] in Blood Ordered By: Bartolo Lyons on 29-36-5997NKM morphology finding Nom (Bld)N/A [facility] Community HospitalErythrocytes [#/volume] in Blood by Automated countOrdered By: Bartolo Lyons on 58-49-4147NOZ (Bld) [#/Vol]4.49 10*6/uL 3.60-5.00[facility] Community HospitalComment on above:Performed By: #### CMP, CK, DIFF CBC, HS TROP #### [facility] [address] [place] [address] USAGlucose [Mass/volume] in Serum or PlasmaOrdered By: Bartolo Lyons on 74-68-6869Xjqrvlb [Mass/Vol]125 mg/fRVwfl89-666Nuljnljsu Regional Medical CenterComment on above:ADA recommended reference rangeRandom Glucose Reference Range is dependent on time and content of last meal. Glucose of more than 200 mg/dL in a nonstressed, ambulatory subject supports the diagnosisof Diabetes Mellitus.Result Comment: Random Glucose Reference Range is dependent on time and content of last meal. Glucose of more than 200 mg/dL in a nonstressed, ambulatory subject supports the diagnosis of Diabetes Mellitus. ADA recommended reference rangePerformed By: #### CMP, CK, DIFF CBC, HS TROP #### [facility] [address] [place] [address] USAGlucose [Mass/volume] in Urine by Test stripOrdered By: Bartolo Lyons on 95-30-8735Uivkuvk Test strip (U) [Mass/Vol]Normal mg/dLNormal [facility] HospitalHematocrit [Volume Fraction] of Blood by Automated countOrdered By: Bartolo Lyons on 66-49-8434Fppxguidkd (Bld) [Volume fraction]28.8 %Low34.0-46.4FWestern Reserve HospitalComment on above: Performed By: #### CMP, CK, DIFF CBC, HS TROP #### [facility] [address] [place] [address] USAHemoglobin Test strip Ql (U)Ordered By: Bartolo Lyons on 52-42-0666Vhlcbtnehs Ql (U)NegativeNegMadison Health Hemoglobin [Mass/volume] in BloodOrdered By: Bartolo Lyons on 02-06-2025 Hemoglobin (Bld) [Mass/Vol]8.8 g/dLLow11.8-15.4FWestern Reserve Hospital Comment on above:Performed By: #### CMP, CK, DIFF CBC, HS TROP #### [facility] [address] [place] [address] USAKetones [Presence] in Urine by Test stripOrdered By: Bartolo Lyons on 84-99-4509Owrqxfp Ql (U)NegativeNegMadison HealthComment on above:Order Comment: Name Collection Type:: Clean- Voided MidstreamPerformed By: #### UA #### [facility] [address] [place] [address] USALeukocyte esterase [Presence] in Urine by Test strip Ordered By: Bartolo Lyons on 38-96-4810Fedswowxf esterase Test strip Ql (U) NegativeNegativePromedica Fostoria Community HospitalComment on above:Order Comment: Name Collection Type:: Clean-Voided MidstreamPerformed By: #### UA #### [facility] [address] [place] [address] USALeukocytes [#/volume] corrected for nucleated erythrocytes in Blood by Automated counOrdered By: Bartolo Lyons on 33-40-5751MEO corrected for nucl RBC Auto (Bld) [#/Vol]6.9 10*3/uL3.8-11.6FWestern Reserve HospitalLeukocytes [#/volume] in Blood by Automated countOrdered By: Bartolo Lyons on 82-34-6936SPI (Bld) [#/Vol]6.9 10*3/uL3.8-11.6FWestern Reserve HospitalComment on above:Performed By: #### CMP, CK, DIFF CBC, HS TROP #### [place] [address] USALymphocytes Auto (Bld) [#/Vol]Ordered By: Bartolo Lyons on 01-01-9192Gmbgghfysrn (Bld) [#/Vol]N/[facility] Lymphocytes/100 WBC Auto (Bld)Ordered By: Bartolo Lyons on 02-06-2025 Lymphocytes/100 WBC (Bld)N/[facility] HospitalLymphocytes/100 leukocytes in Blood by Manual countOrdered By: Bartolo Lyons on 02-06-2025 Lymphocytes/100 WBC (Bld)11 %Klh34-35UnndhvwfxPromedica Fostoria Community HospitalComment on above:Performed By: #### CMP, CK, DIFF CBC, HS TROP #### [place] [address] USAMCH [Entitic mass] by Automated countOrdered By: Bartolo Lyons on 94-91-3958TOX (RBC) [Entitic mass]19.6 pgLow24.7-34.3FWestern Reserve HospitalComment on above:Performed By: #### CMP, CK, DIFF CBC, HS TROP #### [facility] [address] [place] [address] USAMCHC Auto (RBC) [Mass/Vol]Ordered By: Bartolo Lyons on 08-88-3199IRVX (RBC) [Mass/Vol]30.6 g/dLLow32.0-35.0Prom[facility] HospitalMCV [Entitic volume] by Automated countOrdered By: Bartolo Lyons on 46-06-6386XMZ (RBC) [Entitic vol]64.2 eXPrb52-134ZbdqduzdrPromedica Fostoria Community HospitalComment on above:Performed By: #### CMP, CK, DIFF CBC, HS TROP #### [facility] [address] [place] [address] USAMicrocytes LM Ql (Bld)Ordered By: Bartolo Lyons on 47-03-1592Cbkipxlihh Ql (Bld)ModeratePromedica Fostoria Community HospitalMonocyte distribution width [Entitic volume] in Blood by AutomatedOrdered By: Bartolo Lyons on 20-02-7829Zonobpwt distribution width Auto (Bld) [Entitic vol]20.12 % High0.00-20.00[facility] HospitalComment on above:For adults in ED, MDW > 20.0 may be associated with a higher risk of sepsis during the first 12 hrs of hospital admissionMonocytes Auto (Bld) [#/Vol]Ordered By: Bartolo Lyons on 58-09-8138Ugwogwhzf (Bld) [#/Vol]N/[facility] Monocytes/100 WBC Auto (Bld)Ordered By: Bartolo Lyons on 88-67-3557Kpikifvce/100 WBC (Bld)N/[facility] HospitalMonocytes/100 leukocytes in Blood by Manual countOrdered By: Bartolo Lyons on 09-52-3289Dvnajyzpx/100 WBC (Bld)5 % 2-11[facility] HospitalComment on above:Performed By: #### CMP, CK, DIFF CBC, HS TROP #### [facility] [address] [place] [address] USAMyelocytes/100 WBC Manual cnt (Bld)Ordered By: Bartolo Lyons on 66-83-9549Nrqrfsckrf/100 WBC (Bld)1 %High0-0[facility] HospitalNeutrophils Auto (Bld) [#/Vol]Ordered By: Bartolo Lyons on 02-06-2025 Neutrophils (Bld) [#/Vol]N/[facility] HospitalNeutrophils/100 WBC Auto (Bld)Ordered By: Bartolo Lyons on 58-47-2815Tbjoduqwtbe/100 WBC (Bld)N/A [facility] HospitalNitrite Test strip Ql (U)Ordered By: Bartolo Lyons on 43-39-8876Bugtmlj Ql (U)NegativeNegativePromedica Fostoria Community HospitalNo Panel InformationOrdered By: Bartolo Lyons on 69-64-9444Qdllyvrku GFR (CKD-EPI)> 60.0 mL/MinPromedica Fostoria Community HospitalPharmacy Creatinine Clearance (Hzyr794.95[facility] HospitalNucleated erythrocytes [Presence] in Blood by Automated countOrdered By: Bartolo Lyons on 02-06-2025 Nucleated RBC Auto Ql (Bld)NHolmes County Joel Pomerene Memorial HospitalOvalocytes [Presence] in Blood by Light microscopyOrdered By: Bartolo Lyons on 02-06-2025 Ovalocytes LM Ql (Bld)[facility] HospitalPlatelet adequacy [Presence] in Blood by Light microscopyOrdered By: Bartolo Lyons on 02-06-2025 Platelets LM Ql (Bld)NormalNormalPromedica Fostoria Community HospitalPlatelet mean volume [Entitic volume] in Blood by Automated countOrdered By: Bartolo Lyons on 63-92-2836Ziwfzjgr mean volume (Bld) [Entitic vol]8.3 fL6.3-10.7FWestern Reserve HospitalComment on above:Performed By: #### CMP, CK, DIFF CBC, HS TROP #### [facility] [address] [place] [address] USAPlatelet morphology finding [Identifier] in BloodOrdered By: Bartolo Lyons on 76-87-9134Hpmdisjx morphology finding Nom (Bld)Marion HospitalPlatelets Large [Presence] in Blood by Light microscopy Ordered By: Bartolo Lyons on 69-48-6451Yzbjucvdr Large LM Ql (Bld)[facility] HospitalPlatelets [#/volume] in Blood by Automated countOrdered By: Bartolo Lyons on 06-25-9942Vjyzulgfz (Bld) [#/Vol]180 10*3/fC360-248MdrhwamcePromedica Fostoria Community HospitalComment on above:Performed By: #### CMP, CK, DIFF CBC, HS TROP #### [facility] [address] [place] [address] USAPoikilocytosis [Presence] in Blood by Light microscopy Ordered By: Bartolo Lyons on 54-53-0288Ajlbhbdcyhdvei LM Ql (Bld)SlightPromedica Fostoria Community HospitalPotassium [Moles/volume] in Serum or PlasmaOrdered By: Bartolo Lyons on 10-58-0218Ugtwpwjik [Moles/Vol]3.7 mmol/L3.5-5.1FWestern Reserve HospitalComment on above:Performed By: #### CMP, CK, DIFF CBC, HS TROP #### [facility] [address] [place] [address] USAProtein Test strip (U) [Mass/Vol]Ordered By: Bartolo Lyons on 17-77-5993Lljilyo (U) [Mass/Vol]NegativeNegativePromedica Fostoria Community HospitalProtein [Mass/volume] in Serum or PlasmaOrdered By: Bartolo Lyons on 77-78-2343Gmbfnwx [Mass/Vol]7.4 g/dL6.4-8.9[facility] Comment on above:Performed By: #### CMP, CK, DIFF CBC, HS TROP #### [facility] [address] [place] [address] USASegmented neutrophils/100 leukocytes in Blood by Manual countOrdered By: Bartolo Lyons on 92-79-6032Gbfesovjm neutrophils/100 WBC (Bld)83 %Dqtt68-80GzeblngqkPromedica Fostoria Community HospitalComment on above:Performed By: #### CMP, CK, DIFF CBC, HS TROP #### [facility] [address] [place] [address] USASerum globulin measurement by calculation (mass/volume) Ordered By: Bartolo Lyons on 30-12-0225Qnngwkrx (S) [Mass/Vol]3.2 g/dLPromedica Fostoria Community HospitalComment on above:Performed By: #### CMP, CK, DIFF CBC, HS TROP #### [place] [address] USASerum or plasma albumin/globulin mass ratioOrdered By: Bartolo Lyons on 77-30-3941Rcvaknp/Globulin [Mass ratio]1.3 {ratio}[facility] HospitalComment on above:Performed By: #### CMP, CK, DIFF CBC, HS TROP #### [place] [address] USASerum or plasma anion gap determinationOrdered By: Bartolo Lyons on 14-42-7549Ovpmw gap [Moles/Vol]12.0 mmol/L6.0-15.0[facility] HospitalComment on above:Performed By: #### CMP, CK, DIFF CBC, HS TROP #### [place] [address] USASodium [Moles/volume] in Serum or PlasmaOrdered By: Bartolo Lyons on 40-53-0430Cxkkyy [Moles/Vol]137 mmol/N601-067WcxtuizlhPromedica Fostoria Community HospitalComment on above:Performed By: #### CMP, CK, DIFF CBC, HS TROP #### [place] [address] USASpecific gravity Test strip (U) [Rel density]Ordered By: Bartolo Lyons on 81-22-3752Oylimfte gravity (U) [Rel density]1.0171.001-1.030 [facility] Hospitaltomatocytes [Presence] in Blood by Light microscopyOrdered By: Bartolo Lyons on 54-23-6488Egjqleywzdbx LM Ql (Bld)Slight [facility] HospitalTroponin I High Sensitivityon 02-06-2025 Troponin I High Oalxhppesfh7Cuyufo1-52Rfo [facility] Physician GroupComment on above:Result Comment: The Troponin units of report have been changed to meet the Chest Pain Accreditation requirement, element EC5.M1l2. Troponin units are changed from pg/ml to ng/L. Also, the decimal is removed and results are in whole numbers. PERFORMED BY: [place] [address] PATHOLOGIST [employer]PPLY CATALOGUER ABIODUN YEPEZ M.D.Performed By: #### CMP, CK, DIFF CBC, HS TROP #### [facility] [address] [place] [id number] USATroponin I.cardiac [Mass/volume] in Serum or Plasma by Detection limit <= 0.01 ng/mLOrdered By: Bartolo Lyons on 99-73-2553Cjnqczkf I.cardiac DL <= 0.01 ng/mL [Mass/Vol]5 ng/L0-[facility] Comment on above:The Troponin units of report have been changed to meet the Chest Pain Accreditation requirement, element EC5.M1l2. Troponin units are changed from pg/ml to ng/L. Also, the decimal is removed and results are in whole numbers.Urea nitrogen [Mass/volume] in Serum or PlasmaOrdered By: Bartolo Lyons on 56-30-7364Kawg nitrogen [Mass/Vol]11 mg/dL01-17Prom[facility] Community HospitalComment on above:Performed By: #### CMP, CK, DIFF CBC, HS TROP #### [place] [id number] USAUrinalysison 06-98-6260Rydmxnibu,UrineNegativeNormal NegativeThe [facility] Physician GroupComment on above:Order Comment: Name Collection Type:: Clean-Voided MidstreamPerformed By: #### UA #### [place] [address] USAGlucose Ql (U)NormalNormalNormalThe [facility] Physician GroupComment on above:Order Comment: Name Collection Type:: Clean-Voided MidstreamPerformed By: #### UA #### [place] [id number] USANitrite,UrineNegativeNormalNegativeThe [facility] Physician GroupComment on above:Order Comment: Name Collection Type:: Clean-Voided MidstreamPerformed By: #### UA #### [place] [id number] USAOccult Blood,UrineNegativeNormalNegativeThe [facility] Physician GroupComment on above:Order Comment: Name Collection Type:: Clean- Voided MidstreamResult Comment: PERFORMED BY: [place] [address] PATHOLOGIST SUPPLY CATALOGUER ABIODUN YEPEZ M.D.Performed By: #### UA #### [place] [address] USAProtein,UrineNegativeNormalNegativeThe [facility] Physician GroupComment on above:Order Comment: Name Collection Type:: Clean-Voided MidstreamPerformed By: #### UA #### [place] [address] USASpecificy Winger,Urine1.264Ujbgnc9.001-1.030The [facility] Physician GroupComment on above:Order Comment: Name Collection Type:: Clean- Voided MidstreamPerformed By: #### UA #### [place] [address] USAUrobilinogen,UrineNormalNormalNormalThe [facility] Physician GroupComment on above:Order Comment: Name Collection Type:: Clean- Voided MidstreamPerformed By: #### UA #### [place] [address] USAUrobilinogen Test strip (U) [Mass/Vol]Ordered By: Bartolo Lyons on 24-80-0401Jnpajtbzjaui (U) [Mass/Vol]Normal mg/dLNormSelect Medical TriHealth Rehabilitation HospitalX-ray reportOrdered By: Allen Rico on 02-06-[address] [facility] [place] [address] [place] [address] XRay Report Signed Patient: Nati Santos MR#: [id number] : 1985 Acct:[id number] Age/Sex: 39 / F ADM Date: 5 Loc: ER Room: Type: PRE ER Attending Dr: Copies to: DEBRA LOVE~ Ordering Provider: DEBRA LOVE Date of Service: 02/06/25 XR/XR chest 2V*: Dizziness Chest 2 views CLINICAL HISTORY: Dizziness lightheaded for 2 days. COMPARISON: Chest 06/26/2022 FINDINGS: Heart and mediastinal structures appear unchanged. Lungs are clear. No free air. XR/XR chest 2V* IMPRESSION: NO ACUTE CARDIOPULMONARY ABNORMALITY. Impression dictated by: Allen Rico Jr., D.O. 02/06/2025 4:12 PM Dictation Location: RADIO-PC-23 Transcribed By: PWS 02/06/251611 Dictated By: Allen Rico Jr, DO 02/06/251610 Signed By: 02/06/25 1612 [facility] HospitalXR chest 2V*on 82-20-3745YV chest 2V*[facility] [place] [address] [place] [address] XRay Report Signed Patient: Nati Santos MR#: [id number] : 1985 Acct:[id number] Age/Sex: 39 / F ADM Date: 02/06/25 Loc: ER Room: Type: PRE ER Attending Dr: Copies to: DEBRA LOVE Ordering Provider: DEBRA LOVE Date of Service: 02/06/25 XR/XR chest 2V*: Dizziness Chest 2 views CLINICAL HISTORY: Dizziness lightheaded for 2 days. COMPARISON: Chest 06/26/2022 FINDINGS: Heart and mediastinal structures appear unchanged. Lungs are clear. No free air. XR/XR chest 2V* IMPRESSION: NO ACUTE CARDIOPULMONARY ABNORMALITY. Impression dictated by: Allen Rico Jr., D.O. 02/06/2025 4:12 PM Dictation Location: RADIO-PC-23 Transcribed By: JARVIS 02/06/251611 Dictated By: Allen Rico Jr, DO 02/06/251610 Signed By: 02/06/25 [facility] Physician GrouppH of Urine by Test stripOrdered By: Bartolo Lyons on 68-60-1920hG (U)6.0 [pH]5.0-9.0[facility] HospitalComment on above:Order Comment: Name Collection Type:: Clean-Voided MidstreamPerformed By: #### UA #### [place] [address] USAAuditory function testson 84-10-6466Usisw Ear: Mild conductive hearing loss at 4K Hz. Mild hearing loss at 8K Hz Difficult to place bone in appropriate position because of head shape. Air-bone gap in right ear at 4K Hz may be secondary to poor placement of BC oscillator Left Ear: Mild sensorineural hearing loss at 6K Hz [facility] HealthcareBasophils Auto (Bld) [#/Vol]on 08-30-8726Bsmzlaire (Bld) [#/Vol]0.0 10 3/uL0.0-0.1FWestern Reserve HospitalBasophils/100 WBC Auto (Bld)on 28-97-0121Dhgbwohuo/100 WBC (Bld)0.4 %0.2-2.0[facility] HospitalEosinophils/100 WBC Auto (Bld)on 90-61-3378Kazjrcwrmxt/100 WBC (Bld)1.3 %0.9-7.0[facility] HospitalErythrocyte distribution width Auto (RBC) [Ratio]on 23-28-2299Xtayyxjavtz distribution width (RBC) [Ratio]15.9 %High11.0-15.0[facility] HospitalGlucose mean value [Mass/volume] in Blood Estimated from glycated hemoglobinon 87-73-2212Ybzugwz glucose Estimated from glycated hemoglobin (Bld) [Mass/Vol]134 mg/dLPromedica Fostoria Community HospitalHematocrit Auto (Bld) [Volume fraction]on 66-97-9118Fgxdclwkjs (Bld) [Volume fraction]33.7 %Low36.0-48.0[facility] Hemoglobin [Mass/volume] in Bloodon 72-37-1881Txjiylvdmc (Bld) [Mass/Vol]10.1 g/dLLow12.0-16.0[facility] HospitalLaboratory - Chemistry and Chemistry - challengeon 09-44-6580Ytzckhha [Mass/Vol]12.0 ng/mL8.0-252.0 [facility] HospitalLaboratory - Hematology and Cell countson 61-58-1783XmU1x (Bld) [Mass fraction]6.3 %High4.5-6.2FWestern Reserve HospitalComment on above:ADA RECOMMENDED LIMIT 4.0 - 6.0ADA THERAPEUTIC TARGET < 7.0ACTION SUGGESTED> 7.0Immature granulocytes/100 WBC (Bld)0.5 %0.0-0.5FWestern Reserve HospitalLeukocytes [#/volume] corrected for nucleated erythrocytes in Blood by Automated counon 33-38-2841HAM corrected for nucl RBC Auto (Bld) [#/Vol]7.8 10 3/uL4.0-11.0[facility] Lymphocytes Auto (Bld) [#/Vol]on 58-15-3538Kztfgolugrz (Bld) [#/Vol]1.3 10 3/uL 1.2-3.8[facility] Community HospitalLymphocytes/100 WBC Auto (Bld)on 62-75-4567Hptkzgccchl/100 WBC (Bld)16.7 %Low20.5-60.0Fort [facility] HospitalH Auto (RBC) [Entitic mass]on 33-68-3641YAD (RBC) [Entitic mass]23.0 pg Low26.7-34.0[facility] Community HospitalMCHC Auto (RBC) [Mass/Vol]on 43-78-2502MMOJ (RBC) [Mass/Vol]30.0 g/dL29.9-35.2FWestern Reserve HospitalMCV Auto (RBC) [Entitic vol]on 90-45-6680QUK (RBC) [Entitic vol]76.8 fLLow 81.0-99.0[facility] HospitalMonocytes Auto (Bld) [#/Vol]on 90-50-9799Egowpehqy (Bld) [#/Vol]0.6 10 3/uL0.3-0.8[facility] HospitalMonocytes/100 WBC Auto (Bld)on 80-91-3233Lnmqckiwp/100 WBC (Bld)8.0 % 1.7-12.0[facility] Community HospitalNeutrophils Auto (Bld) [#/Vol]on 99-88-2896Bcayldtllkk (Bld) [#/Vol]5.7 10 3/uL1.4-6.5FWestern Reserve HospitalNeutrophils/100 WBC Auto (Bld)on 52-22-8379Idkxoegozui/100 WBC (Bld)73.1 % 43.0-75.0[facility] HospitalNo Panel Informationon 11-02-2023 Eosinophils # (Auto)0.1 10 3/uL0.0-0.7FWestern Reserve HospitalImmature Granulocyte # (Auto)0.04 10 3/uLHigh0.00-0.03[facility] Platelet mean volume Auto (Bld) [Entitic vol]on 86-11-5604Sspncqfs mean volume (Bld) [Entitic vol]9.5 fL9.5-13.5FWestern Reserve HospitalPlatelets Auto (Bld) [#/Vol]on 31-29-7890Qpwbtfedz (Bld) [#/Vol]197 10 3/pB879-758SkgcscndhPromedica Fostoria Community HospitalRBC Auto (Bld) [#/Vol]on 21-43-6639HQA (Bld) [#/Vol]4.39 10 6/uL4.20-5.40Prom[facility] Community HospitalCOVID CepheidOrdered By: Terrence Spangler on 49-91-8680CQYS-CoV-2 (COVID-19) Ab IA QlNegativeNegative [facility] Community HospitalComment on above:This is a duplicate Cepheid Xpert Xpress CoV-2/Flu/RSV Plus RNA by RT-PCR result to be used for statistical tracking purpose only.SARS-CoV-2 (COVID-19) RNA SIMÓN+probe Ql (Unsp spec) [facility] HospitalARS-CoV-2 ([facility]OVID-19) RNA SIMÓN+probe Ql (Unsp spec)[facility] HospitalARS-CoV-2 (COVID-19) RNA SIMÓN+probe Ql (Resp)on 35-22-5977PLWB-CoV-2 (COVID-19) RNA SIMÓN+probe Ql (Unsp spec)Positive [facility] Other [id number]-03 Positive/NegativeOrdered By: Gris Phillip on 45-20-0853JRCE-CoV-2 (COVID-19) N gene SIMÓN+probe Ql (Resp)NegativeNegative [facility] HospitalComment on above:Testing for SARS-CoV-2 by RT-PCR This test was developed and its performance characteristics determined by [employer] (BD) and validated at the [facility]. This test has not been FDA cleared or approved. This test has been authorized by FDA under an Emergency Use Authorization (EUA). This test has been validated in accordance with the FDA's Guidance Document (Policy for Diagnostics Testing in Laboratories Certified to Perform High Complexity Testing under CLIA prior to Emergency Use Authorization for Coronavirus Disease-2019 during the Public Health Emergency) issued on September 26, 2019. This test is only authorized for the duration of time the declaration that circumstances exist ju stifying the authorization of the emergency use of in vitro diagnostic tests for detection of SARS-CoV-2 virus and/or diagnosis of COVID-19 infection under section 564(b)(1) of the Act, 21 U.S.C. 360bbb-3(b)(1), unless the authorization is terminated or revoked sooner.Testing for SARS-CoV-2 by RT-PCRThis test was developed and its performance characteristics determined by [employer] ([employer]) and validated at the [facility]. This test has not been FDA cleared or approved. This test has been authorized by FDA under an Emergency Use Authorization (EUA). This test has been validated in accordance with the FDA's Guidance Document (Policy for Diagnostics Testing in Laboratories Certified to Perform High Complexity Testing under CLIA prior to Emergency Use Authorization for Coronavirus Disease-2019 during the Public Health Emergency) issued on September 26, 2019. This test is only authorized for the duration of time the declaration that circumstances exist justifying the authorization of the emergency use of in vitro diagnostic tests for detection of SARS-CoV-2 virus and/or diagnosis of COVID-19 infection under section 564(b)(1) of the Act, 21 U.S.C. 360bbb-3(b)(1), unless the authorization is terminated or revoked sooner.SARS-CoV-2 (COVID-19) RNA SIMÓN+probe Ql (Resp)on 02-07-2022 SARS-CoV-2 (COVID-19) RNA SIMÓN+probe Ql (Unsp spec)NegativeNophelps health [employer] Other Albumin [Mass/volume] in Serum or PlasmaOrdered By: Kate Perezvertis/Preceptor on 08-81-2000Fzfaoyg [Mass/Vol]3.5 g/dL3.2-5.5FWestern Reserve HospitalBasophils Auto (Bld) [#/Vol]Ordered By: Kate Ketvertis/Preceptor on 51-35-0249Toivmhsvi (Bld) [#/Vol]0.0 10*3/uL0.0-0.2 [facility] HospitalBasophils/100 WBC Auto (Bld)Ordered By: Kate Ketvertis/Preceptor on 28-22-5100Wipgycbty/100 WBC (Bld)0.6 %.[facility] HospitalBlood hemoglobin measurement (mass/volume)Ordered By: Kate Perezvertis/Preceptor on 68-13-0181Oedbwddjuq (Bld) [Mass/Vol]12.0 g/dL11.8-15.4 [facility] HospitalBlood leukocytes automated count (number/volume)Ordered By: Kate Perezvertis/Preceptor on 17-70-4682RDE (Bld) [#/Vol]7.9 10*3/uL4.5-11.0[facility] HospitalC reactive protein [Mass/volume] in Serum or PlasmaOrdered By: Kate Perezvertis/Preceptor on 82-29-3480GYC [Mass/Vol]3.4 mg/dL0.0-1.0[facility] HospitalDirect bilirubin measurementOrdered By: Kate Perezvertis/Preceptor on 01-31-2022 Bilirubin.direct [Mass/Vol]mg/dL0.0-0.4FWestern Reserve Hospital Eosinophils Auto (Bld) [#/Vol]Ordered By: Kate Ketvertis/Preceptor on 01-31-2022 Eosinophils (Bld) [#/Vol]0.1 10*3/uL0.0-0.45[facility] Eosinophils/100 WBC Auto (Bld)Ordered By: Kate Ketvertis/Preceptor on 01-31-2022 Eosinophils/100 WBC (Bld)1.1 %.[facility] HospitalErythrocyte distribution width Auto (RBC) [Ratio]Ordered By: Kate Groves/Preceptor on 32-24-9497Luklnurawhb distribution width (RBC) [Ratio]15.8 %11.9-15.3FWestern Reserve HospitalGlobulin Calc (S) [Mass/Vol]Ordered By: Kate Perezvertis/Preceptor on 05-21-7845Edwwfupe (S) [Mass/Vol]3.1 g/dLPromedica Fostoria Community HospitalHematocrit Auto (Bld) [Volume fraction]Ordered By: Kate Perezvertis/Preceptor on 27-95-1769Rhaobvakgp (Bld) [Volume fraction]37.0 % 34.0-46.4FWestern Reserve HospitalLaboratory - Hematology and Cell countsOrdered By: Kate Groves/Preceptor on 99-44-4336Bypfcqpvf RBC/100 WBC (Bld) [Ratio]0.1 %0-0.5FWestern Reserve HospitalLymphocytes Auto (Bld) [#/Vol]Ordered By: Kate Perezvertis/Preceptor on 17-73-5768Acguqkdkyeg (Bld) [#/Vol]1.3 10*3/uL1.00-4.8[facility] Community HospitalLymphocytes/100 WBC Auto (Bld)Ordered By: Kate Perezvertis/Preceptor on 19-53-1303Eqqjsgxgglh/100 WBC (Bld)16.5 %.[facility] HospitalMCH Auto (RBC) [Entitic mass] Ordered By: Kate Perezvertis/Preceptor on 11-17-4130CHU (RBC) [Entitic mass]25.4 pg24.7-34.3FWestern Reserve HospitalMCHC Auto (RBC) [Mass/Vol]Ordered By: Kate Ketvertis/Preceptor on 67-06-1718ICVU (RBC) [Mass/Vol]32.4 g/dL 32.0-35.0[facility] Community HospitalMCV Auto (RBC) [Entitic vol]Ordered By: Kate Ketvertis/Preceptor on 15-67-7709KQL (RBC) [Entitic vol]78.5 xW78-659 [facility] HospitalMonocytes Auto (Bld) [#/Vol]Ordered By: Kate Groves/Preceptor on 20-80-0105Nricjkqer (Bld) [#/Vol]0.5 10*3/uL0.0-0.8 [facility] HospitalMonocytes/100 WBC Auto (Bld)Ordered By: Kate Perezvertis/Preceptor on 89-81-1778Rjyocxpna/100 WBC (Bld)6.9 %.[facility] HospitalNeutrophils Auto (Bld) [#/Vol]Ordered By: Kate Perezvertis/Preceptor on 12-28-6338Bsfmwjeungs (Bld) [#/Vol]5.9 10*3/uL1.8-7.7 [facility] HospitalNeutrophils/100 WBC Auto (Bld)Ordered By: Kate Perezvertis/Preceptor on 31-11-4173Tkqgcjwgpsa/100 WBC (Bld)74.9 %.[facility] HospitalPlatelet mean volume Auto (Bld) [Entitic vol]Ordered By: Kate Groves/Preceptor on 06-44-5568Xlfegqjr mean volume (Bld) [Entitic vol] 8.0 fL6.3-10.7FWestern Reserve HospitalPlatelets Auto (Bld) [#/Vol] Ordered By: Kate Salehis/Preceptor on 64-35-2792Xsgaulgmj (Bld) [#/Vol]233 10*3/xJ630-738WntsmofvxPromedica Fostoria Community HospitalProtein [Mass/volume] in Serum or PlasmaOrdered By: Kate Perezvertis/Preceptor on 39-43-0161Yiivnuj [Mass/Vol]6.6 g/dL6.1-7.9[facility] HospitalRBC Auto (Bld) [#/Vol]Ordered By: Kate Perezvertis/Preceptor on 77-54-7485SDI (Bld) [#/Vol]4.71 10*6/uL3.60-5.00 [facility] HospitalRandom cortisol measurementOrdered By: Kate Ketvertis/Preceptor on 75-69-9185Ztpjslki [Mass/Vol]8.1 ug/dLPromedica Fostoria Community HospitalComment on above:Reference range: AM 6 - 24 ug/dl PM <10 ug/dlReference range: AM 6 - 24 ug/dl PM <10 ug/dlSerum or plasma alanine aminotransferase measurement without P-5'-P (enzymatic activiOrdered By: Kate Groves/Preceptor on 39-18-6454RPC No additional P-5'-P [Catalytic activity/Vol]39 U/A95-74UdnobhvucLima Memorial Hospitalerum or plasma albumin/globulin mass ratioOrdered By: Kate Groves/Preceptor on 01-31-2022 Albumin/Globulin [Mass ratio]1.1 {ratio}[facility] Hospitalerum or plasma alkaline phosphatase measurement (enzymatic activity/volume)Ordered By: Kate Salehis/Preceptor on 33-79-5964BFK [Catalytic activity/Vol]112 U/L 32-92L[facility] Hospitalerum or plasma aspartate aminotransferase measurement (enzymatic activity/volume)Ordered By: Kate Salehis/Preceptor on 23-43-6314JTR [Catalytic activity/Vol]33 U/J55-96RfrjmbivrLima Memorial Hospitalerum or plasma follitropin measurement (units/volume)Ordered By: Kate Groves/Preceptor on 91-17-2736Ugjxuiaretf Qn4.8 m[IU]/mLPromedica Fostoria Community HospitalComment on above:FEMALE NORMALS (PREMENOPAUSE) MID-FOLLICULAR PHASE: 3.9-8.8 mIU/mL MID-CYCLE PEAK: 4.5-22.5 mIU/mL MID-LUTEAL PHASE: 1.8-5.1 mIU/mL FEMALE NORMALS (POSTMENOPAUSE): 16.7-113.6 mIU/mL MALE NORMALS: 1.3-19.3 mIU/mLFEMALE NORMALS (PREMENOPAUSE) MID-FOLLICULAR PHASE: 3.9-8.8 mIU/mL MID-CYCLE PEAK: 4.5-22.5 mIU/mL MID-LUTEAL PHASE: 1.8-5.1 mIU/mLFEMALE NORMALS (POSTMENOPAUSE): 16.7-113.6 mIU/mLMALE NORMALS: 1.3-19.3 mIU/mLSerum or plasma free cefuroxime measurement (mass/volume)Ordered By: Kate Groves/Preceptor on 95-48-8065Tssvibphaa free [Mass/Vol]NegativeNegative [facility] HospitalComment on above:Performed at: [facility] [id number] [employer] Actuary: Eddie You PhD, Phone: [phone] at: [facility] [id number] Director: Eddie You PhD, Phone: [phone] or plasma lutropin measurement (units/volume)Ordered By: Kate Groves/Preceptor on 28-55-1137Ecdebmzd Qn3.2 m[IU]/mL.[facility] HospitalComment on above:Adult Female: Follicular phase 2.4 - 12.6 Ovulation phase 14.0 - 95.6 Luteal phase 1.0 - 11.4 Postmenopausal 7.7 - 58.5 Performed at: [facility] [id number] [employer] Actuary: Eddie You PhD, Phone: [phone] Female: Follicular phase 2.4 - 12.6 Ovulation phase 14.0 - 95.6 Luteal phase 1.0 - 11.4 Postme nopausal 7.7 - 58.5Performed at: [facility] [id number] Director: Eddie You PhD, Phone: [phone] or plasma non-glucuronidated bilirubin measurement (mass/volume)Ordered By: Kate Groves/Preceptor on 34-18-5424Grhvirsrt.indirect [Mass/Vol][facility] TownshipComment on above:Test not performedSerum or plasma total bilirubin measurement (mass/volume)Ordered By: Kate Groves/Preceptor on 36-61-3401Eyxypyode [Mass/Vol]0.6 mg/dL0.3-1.2FWestern Reserve Hospital TSH DL <= 0.005 mIU/L QnOrdered By: Kate Salehis/Preceptor on 68-99-0088VMG Qn 2.78 m[IU]/L0.45-5.33[facility] HospitalThyroxine (T4) free [Mass/volume] in Serum or PlasmaOrdered By: Kate Salehis/Preceptor on 88-94-4402Zcux T4 [Mass/Vol]0.80 ng/dL0.61-1.12[facility] Body fluid albumin measurement (mass/volume)Ordered By: Leah Le on 12-82-6363Chulexi (Body fld) [Mass/Vol]3.8 g/dL3.2-5.5FWestern Reserve HospitalCholesterol [Mass/volume] in Serum or PlasmaOrdered By: Leah Le on 75-52-1063Oexngjtyhlz [Mass/Vol]194 mg/hP958-306OtvpsrfvrPromedica Fostoria Community HospitalComment on above:Chol less than 200 mg/dl low risk Chol 201-239 mg/dl borderline risk Chol 240 mg/dl and greater high riskChol less than 200 mg/dl low riskChol 201- 239 mg/dl borderline riskChol 240 mg/dl and greater high riskCholesterol in LDL Calc [Mass/Vol]Ordered By: Leah Le on 84-93-5041Llryjpqrroo in LDL [Mass/Vol]103 mg/dL0-100[facility] HospitalComment on above:LDL ATP III CLASSIFICATION LDL less than 100 mg/dL Optimal LDL 100-129 mg/dL Near or above optimal LDL 130-159 mg/dL Borderline high LDL 160-189 mg/dL High LDL greater than 189 mg/dL Very highLDL ATP III CLASSIFICATIONLDL less than 100 mg/dL OptimalLDL 100-129 mg/dL Near or above fqczjdlRCE809-019 mg/dL Borderline highLDL 160-189 mg/dL HighLDL greater than 189 mg/dL Very highCholesterol in VLDL Calc [Mass/Vol]Ordered By: Leah Le on 69-60-6910Hsppjrfizwc in VLDL [Mass/Vol]55 mg/dLPromedica Fostoria Community HospitalCreatinine and Glomerular filtration rate.predicted panel (S/P/Bld)Ordered By: Leah Le on 01-10-2022 Creatinine [Mass/Vol]0.71 mg/dL0.44-1.03[facility] Estimated glomerular filtration rate (GFR) non- AmericanOrdered By: Leah Le on 48-32-1130CVC/1.73 sq M.predicted among non-blacks MDRD (S/P/Bld) [Vol rate/Area]> 60 mL/MinPromedica Fostoria Community HospitalGlobulin Calc (S) [Mass/Vol]Ordered By: Leah Le on 00-36-6186Lyvkkudv (S) [Mass/Vol]3.3 g/dLPromedica Fostoria Community HospitalGlucose mean value [Mass/volume] in Blood Estimated from glycated hemoglobinOrdered By: Leah Le on 46-04-9120Tizpmdl glucose Estimated from glycated hemoglobin (Bld) [Mass/Vol]160 mg/dLPromedica Fostoria Community HospitalLaboratory - Chemistry and Chemistry - challengeOrdered By: Leah Le on 94-57-0725Qncqblp [Mass/Vol] 130 mg/yI67-537WdvokcelvPromedica Fostoria Community HospitalComment on above:ADA recommended reference rangeLaboratory - Hematology and Cell countsOrdered By: Leah Le on 82-09-9081NvZ0x (Bld) [Mass fraction]7.2 %4.3-5.6FWestern Reserve HospitalComment on above:Increased risk for diabetes: 5.7 - 6.4 diabetes: >6.4 glycemic control for adults with diabetes: <7.0Increased risk for diabetes: 5.7 - 6.4diabetes: >6.4glycemic control for adults with diabetes: <7.0No Panel InformationOrdered By: Leah Le on 35-09-8085Rlroijibe GFR ()> 60 mL/MinPromedica Fostoria Community HospitalComment on above:GFR estimated reference range: According to KDOQI guidelines, <60 ml/min/1.73m2 is sufficient todiagnose a patient with chronic kidney disease.Pharmacy Creatinine Clearance (ChemN/AFWestern Reserve HospitalTriglycerides Ijmbwg105 mg/dL 35-149[facility] HospitalComment on above:TRIG ATP III CLASSIFICATION TRIG less than 150 mg/dL Normal TRIG 150-199 mg/dL Borderline high TRIG 200-500 mg/dL High TRIG greater than 500 mg/dL Very high Standard traceable to the Center for Disease Conrtrol and Prevention (CDC) test method.TRIG ATP III CLASSIFICATIONTRIG less than 150 mg/dL NormalTRIG 150-199 mg/dL Borderline highTRIG 200-500 mg/dL High TRIG greater than 500 mg/dL Very highStandard traceable to the Center for Disease Conrtrol and Prevention (CDC) test method.Protein [Mass/volume] in Serum or PlasmaOrdered By: Leah Le on 96-31-9720Vuehfkm [Mass/Vol]7.1 g/dL6.1-7.9[facility] Serum or plasma alanine aminotransferase measurement without P-5'-P (enzymatic activiOrdered By: Leah Le on 88-99-1114EWJ No additional P-5'-P [Catalytic activity/Vol]48 U/U97-59RwkqrbixmLima Memorial Hospitalerum or plasma albumin/globulin mass ratioOrdered By: Leah Le on 01-10-2022 Albumin/Globulin [Mass ratio]1.2 {ratio}[facility] Hospitalerum or plasma alkaline phosphatase measurement (enzymatic activity/volume)Ordered By: Leah Le on 64-17-7544RWF [Catalytic activity/Vol]115 U/L78-34HbiifdcxvLima Memorial Hospitalerum or plasma aspartate aminotransferase measurement (enzymatic activity/volume)Ordered By: Leah Le on 74-82-6195AWW [Catalytic activity/Vol]38 U/Q48-79FirguqppzLima Memorial Hospitalerum or plasma calcium measurement (mass/volume)Ordered By: Leah Le on 03-07-4040Xzggwuw [Mass/Vol]9.6 mg/dL8.2-10.2FMercy Health St. Charles Hospitalerum or plasma chloride measurement (moles/volume)Ordered By: Leah Le on 01-10-2022 Chloride [Moles/Vol]96 mmol/Q13-966CaxwxcfzuLima Memorial Hospitalerum or plasma high density lipoprotein (HDL) cholesterol measurementOrdered By: Leah Le on 91-91-1307Etfmwvihvja in HDL [Mass/Vol]36 mg/jP60-77AdhjijbiqPromedica Fostoria Community HospitalComment on above:HDL CHOL ATP-III CLASSIFICATION Cardiovascular Risk HDL > or equal to 60 mg/dL LOW HDL < 40 mg/dL HIGHHDL CHOL ATP-III CLASSIFICATION Cardiovascular RiskHDL > or equal to 60 mg/dL LOWHDL < 40 mg/dL HIGHSerum or plasma potassium measurement (moles/volume)Ordered By: Leah Le on 92-94-3082Hcznyhtrg [Moles/Vol]4.4 mmol/L3.5-5.1FMercy Health St. Charles Hospitalerum or plasma sodium measurement (moles/volume)Ordered By: Leah Le on 15-27-8374Gmzgno [Moles/Vol]135 mmol/V467-381FzjcpzcgpLima Memorial Hospitalerum or plasma total bilirubin measurement (mass/volume)Ordered By: Leah Le on 93-94-4375Bbjkqouxp [Mass/Vol]0.4 mg/dL0.3-1.2FMercy Health St. Charles Hospitalerum or plasma total carbon dioxide measurement (moles/volume)Ordered By: Leah Le on 53-78-4194DQ8 [Moles/Vol]27.0 mmol/L22.0-30.0[facility] Serum or plasma total cholesterol/high density lipoprotein (HDL) cholesterol mass ratOrdered By: Leah Le on 60-79-1358Ndoemsnzyfh.total/Cholesterol in HDL [Mass ratio]5.4 {ratio}<5.0[facility] Hospitalerum or plasma urea nitrogen measurement (mass/volume)Ordered By: Leah Le on 01-10-2022 Urea nitrogen [Mass/Vol]9 mg/dL9-23[facility] HospitalCBC AUTO DIFFon 38-05-4516JSTE #0.0 103/ulNormal0.0-0.1The [facility] HospitalComment on above:Performed By: #### CBC #### [facility] [address] [address] [address] Nehemiah Powerssophils/100 WBC (Bld)0.4 %Normal0.2-2.0The [facility] Comment on above:Performed By: #### CBC #### [facility] [address] [address] [address] Nehemiah Saenz #0.1 103/ulNormal0.0-0.7The [facility] HospitalComment on above: Performed By: #### CBC #### [facility] [address] [place] [address] Dr. Nehemiah Adlerosinophils/100 WBC (Bld)1.3 %Normal0.9-7.0The [facility] Comment on above:Performed By: #### CBC #### [facility] [address] [place] [address] Dr. Nehemiah Adlerrythrocyte distribution width (RBC) [Ratio]14.9 %Nisbsj57.0-15.0 The [facility] HospitalComment on above:Performed By: #### CBC #### [facility] [address] [place] [address] Dr. Nehemiah CastilloHematocrit (Bld) [Volume fraction]36.9 %Lhapvw70.0-48.0The [facility] HospitalComment on above:Performed By: #### CBC #### [facility] [address] [place] [address] Dr. Nehemiah CastilloHemoglobin (Bld) [Mass/Vol]11.5 g/dLCritically low12.0-16.0The [facility] HospitalComment on above:Performed By: #### CBC #### [facility] [address] [place] [address] Dr. Nehemiah Villagomez #0.07 10e3/ulCritically high0.00-0.03The [facility] Comment on above:Performed By: #### CBC #### [facility] [address] [place] [address] Dr. Nehemiah Villagomez %0.7 %Critically high0.0-0.5The [facility] HospitalComment on above:Performed By: #### CBC #### [facility] [address] [place] [address] Dr. Nehemiah Agarwal #1.6 103/ulNormal1.2-3.8The [facility] HospitalComment on above:Performed By: #### CBC #### [facility] [address] [place] [address] Dr. Nehemiah Tripathimphocytes/100 WBC (Bld)16.0 %Critically low20.5-60.0The [facility] HospitalComment on above:Performed By: #### CBC #### [facility] [address] [place] [address] Dr. Nehemiah RiveroUAL DIFF REQNONormalThe [facility] HospitalComment on above: Performed By: #### CBC #### [facility] [address] [place] [address] Dr. Nehemiah Ogden (RBC) [Entitic mass]26.2 pgCritically low26.7-34.0The [facility] HospitalComment on above:Performed By: #### CBC #### [facility] [address] [place] [address] Dr. Nehemiah Ogden (RBC) [Mass/Vol]31.2 g/fBNerysu05.9-35.2The [facility] HospitalComment on above:Performed By: #### CBC #### [facility] [address] [place] [address] Dr. Nehemiah Ogden (RBC) [Entitic vol]84.1 kUJjywfh08.0-99.0[facility] HospitalComment on above:Performed By: #### CBC #### [facility] [address] [place] [address] Dr. Nehemiah Alvarez #0.7 103/ulNormal0.3-0.8The [facility] HospitalComment on above:Performed By: #### CBC #### [facility] [address] [place] [address] Dr. Nehemiah Walkerocytes/100 WBC (Bld)6.7 %Normal1.7-12.0[facility] Comment on above:Performed By: #### CBC #### [facility] [address] [place] [address] Dr. Nehemiah Jordan #7.3 103/ulCritically high1.4-6.5The [facility] Comment on above:Performed By: #### CBC #### [facility] [address] [address] [address] Nehemiah CastilloNeutrophils/100 WBC (Bld)74.9 %Hkhuyh01.0-75.0The [facility] HospitalComment on above:Performed By: #### CBC #### [facility] [address] [address] [address] Nehemiah CastilloPlatelet mean volume (Bld) [Entitic vol]9.7 fLNormal9.5-13.5The [facility] HospitalComment on above:Performed By: #### CBC #### [facility] [address] [address] [address] Nehemiah CastilloPLT225 103/obXdxjqj937-732Cfy [facility] HospitalComment on above: Performed By: #### CBC #### [facility] [address] [address] [address] Nehemiah CastilloRBC4.39 106/ulNormal4.20-5.40The [facility] HospitalComment on above:Performed By: #### CBC #### [facility] [address] [address] [address] Nehemiah CastilloWBC9.8 103/ulNormal4.0-11.0The [facility] HospitalComment on above: Performed By: #### CBC #### [facility] [address] [address] [address] Nehemiah CastilloGLYCOHEMOGLOBIN A1Con 56-30-0908PEQ RECOMMENDATIONADA THERAPEUTIC TARGET 6.0 - 7.0 ACTION SUGGESTED > 7.0NoMercy Health Perrysburg HospitalComment on above:Performed By: #### A1C #### [facility] [address] [address] [address] Nehemiah CastilloGlucose [Mass/Vol]148 mg/dLNoMercy Health Perrysburg HospitalComment on above:Performed By: #### A1C #### [facility] [address] [address] [address] Nehemiah CastilloHbA1c (Bld) [Mass fraction]6.8 %Critically high<=6.0The [facility] HospitalComment on above:Performed By: #### A1C #### [facility] [address] [address] [address] Nehemiah SchumacherID PROFILEon 43-91-9794QGKE-HDL RATIO NORMSMercy Health Springfield Regional Medical CenterComchelsea hospital on above:Result Comment: 3.3 - 4.4 LOW RISK 4.4 - 7.1 AVERAGE RISK 7.1 - 11.0 MODERATE RISK >11.0 HIGH RISKPerformed By: #### CMP, LIPID #### [facility] [address] [address] [address] Nehemiah CastilloCholesterol [Mass/Vol]153 mg/dLNormal<=200[facility] Comment on above:Performed By: #### CMP, LIPID #### [facility] [address] [address] [address] Nehemiah CastliloCholesterol in HDL [Mass/Vol]32 mg/dLUniversity Hospitals Portage [facility] Center Comment on above:Performed By: #### CMP, LIPID #### [facility] [address] [address] [address] Nehemiah CastilloCholesterol in LDL [Mass/Vol]76.6 mg/dLUniversity Hospitals Portage Medical CenterComment on above:Performed By: #### CMP, LIPID #### [facility] [address] [address] [address] Nehemiah CastilloCholesteretelvina.total/Cholesterol in HDL [Mass ratio]4.8 {ratio} NormalOhio State Harding HospitalComment on above:Performed By: #### CMP, LIPID #### [facility] [address] [address] [address] Nehemiah CastilloHDL NORMAL> or = 60 mg/dl - LOW CARDIOVASCULAR RISK <40 mg/dl - HIGH CARDIOVASCULAR RISKUniversity Hospitals Portage Medical CenterComment on above:Performed By: #### CMP, LIPID #### [facility] [address] [address] [address] Nehemiah CastilloLDL CALC NORMALSEE Cherrington HospitalComment on above:Result Comment: <100 mg/dl OPTIMAL 100 - 129 mg/dl NEAR OR ABOVE OPTIMAL 130 - 159 mg/dl BORDERLINE HIGH 160 - 189 mg/dl HIGH >190 mg/dl VERY HIGH Performed By: #### CMP, LIPID #### [facility] [address] [place] [address] Dr. Nehemiah CastilloTriglyceride [Mass/Vol]222 mg/dLCritically high<=150The [facility] Hospitalment on above:Performed By: #### CMP, LIPID #### [facility] [address] [address] [address] Nehemiah CastilloVLDL CALC44.4 mg/dLNormalThe [facility] HospitalComment on above: Performed By: #### CMP, LIPID #### [facility] [address] [place] [address] Dr. Nehemiah Bryant 14(COMP METB)on 94-87-7197Dexycpv [Mass/Vol]3.1 g/dL Critically low3.5-5.0The [facility] HospitalComment on above:Performed By: #### CMP, LIPID #### [facility] [address] [place] [address] Dr. Nehemiah CastilloAlbumin/Globulin [Mass ratio]0.8 {ratio}NormalThe [facility] HospitalComment on above:Performed By: #### CMP, LIPID #### [facility] [address] [place] [address] Dr. Nehemiah Nunez [Catalytic activity/Vol]134 U/LCritically zsge84-253Dxh [facility] HospitalComment on above:Performed By: #### CMP, LIPID #### [facility] [address] [place] [address] Dr. Nehemiah Talavera [Catalytic activity/Vol]36 U/LNormal9-52The [facility] Comment on above:Performed By: #### CMP, LIPID #### [facility] [address] [place] [address] Dr. Nehemiah Davison gap [Moles/Vol]10.7 mmol/LNormalThe [facility] Comment on above:Performed By: #### CMP, LIPID #### [facility] [address] [place], [place] [id number] Dr. Nehemiah CastilloAST [Catalytic activity/Vol]17 U/NQlmafm29-85Hln [facility] HospitalComment on above:Performed By: #### CMP, LIPID #### [facility] [address] [place] [address] Dr. Nehemiah CastilloBilirubin [Mass/Vol]0.4 mg/dLNormal0.2-1.3The [facility] Comment on above:Performed By: #### CMP, LIPID #### [facility] [address] [place] [address] Dr. Nehemiah CastilloCalcium [Mass/Vol]9.1 mg/dLNormal8.4-10.2The [facility] Comment on above:Performed By: #### CMP, LIPID #### [facility] [address] [place] [address] Dr. Nehemiah CastilloChloride [Moles/Vol]101 mmol/LLjsxne66-380Ruc [facility] Comment on above:Performed By: #### CMP, LIPID #### [facility] [address] [place] [address] Dr. Nehemiah CastilloCO2 [Moles/Vol]30.0 mmol/KAtvqig73.0-30.0The [facility] Comment on above:Performed By: #### CMP, LIPID #### [facility] [address] [place] [address] Dr. Nehemiah CastilloCreatinine [Mass/Vol]0.67 mg/dLNormal0.52-1.04The [facility] HospitalComment on above:Performed By: #### CMP, LIPID #### [facility] [address] [place] [address] Dr. Nehemiah AdlerGFR-AF KENYAN>60Normal>=60The [facility] HospitalComment on above:Performed By: #### CMP, LIPID #### [facility] [address] [place] [address] Dr. Nehemiah AdlerGFR-NON AF KENYAN>60Normal>=60The [facility] HospitalComment on above:Performed By: #### CMP, LIPID #### [facility] [address] [address] [address] Nehemiah CastilloGlobulin (S) [Mass/Vol]4.1 g/dLNormSheltering Arms HospitalComment on above:Performed By: #### CMP, LIPID #### [facility] [address] [place] [address] Dr. Nehemiah CastilloGlucose [Mass/Vol]149 mg/dLCritically bltj58-888Rtl [facility] HospitalComment on above:Performed By: #### CMP, LIPID #### [facility] [address] [place] [address] Dr. Nehemiah CastilloPotassium [Moles/Vol]3.7 mmol/LNormal3.4-5.0The [facility] Comment on above:Performed By: #### CMP, LIPID #### [facility] [address] [place] [address] Dr. Nehemiah CastilloProtein [Mass/Vol]7.2 g/dLNormal6.1-8.2The [facility] Comment on above:Performed By: #### CMP, LIPID #### [facility] [address] [place] [address] Dr. Nehemiah CastilloSodium [Moles/Vol]138 mmol/UAzxmqn244-686Ged [facility] Comment on above:Performed By: #### CMP, LIPID #### [facility] [address] [place] [address] Dr. Nehemiah CastilloUrea nitrogen [Mass/Vol]12.0 mg/dLNormal7.0-17.0The [facility] HospitalComment on above:Performed By: #### CMP, LIPID #### [facility] [address] [place] [address] Dr. Nehemiah CastilloUrea nitrogen/Creatinine [Mass ratio]17.9 mg/mgNoMercy Health Perrysburg HospitalComment on above:Performed By: #### CMP, LIPID #### [facility] [address] [place] [address] Dr. Nehemiah CastilloCovid-19 PCR (CVDTB)on 14-79-5793UEBY-CoV-2 (COVID-19) RNA SIMÓN+probe Ql (Unsp spec)Not detectedNormalNOT DETECTEDThe [facility] Comment on above:Result Comment: This test is not yet approved or cleared by the [place] FDA. When there are no FDA-approved or cleared tests available, and other criteria are met, FDA can make tests available under an emergency access mechanism called an Emergency Use Authorization (EUA). The EUA for this test is supported by the [place] of Health and Human Service's (HHS's) declaration that circumstances exist to justify the emergency use of in vitro diagnostics for the detection and/or diagnosis of the virus that causes COVID- 19. This EUA will remain in effect (meaning this test can be used) for the duration of the COVID-19 declaration justifying emergency of IVDs, unless it is terminated or revoked by FDA (after which the test may no longer be used). When diagnostic testing is negative, the possibility of a false negative should be considered in the context of a patient's recent exposures and the presence of clinical signs and symptoms consistent with SARS-CoV-2.Performed By: #### [facility] #### [facility] [address] [place] [address] Dr. Nehemiah Ng-19 PCR ([facility])on 69-69-3068MWYS-CoV-2 (COVID-19) RNA SIMÓN+probe Ql (Unsp spec)Not detectedNormalNOT DETECTEDThe [facility] Comment on above:Result Comment: This test is not yet approved or cleared by the [place] FDA. When there are no FDA-approved or cleared tests available, and other criteria are met, FDA can make tests available under an emergency access mechanism called an Emergency Use Authorization (EUA). The EUA for this test is supported by the [employer] of Health and Human Service's (HHS's) declaration that circumstances exist to justify the emergency use of in vitro diagnostics for the detection and/or diagnosis of the virus that causes COVID- 19. This EUA will remain in effect (meaning this test can be used) for the duration of the COVID-19 declaration justifying emergency of IVDs, unless it is terminated or revoked by FDA (after which the test may no longer be used). When diagnostic testing is negative, the possibility of a false negative should be considered in the context of a patient's recent exposures and the presence of clinical signs and symptoms consistent with SARS-CoV-2.Performed By: #### [facility] #### [facility] [address] [address] [address] Nehemiah Fuller Recordson 58-26-2064Nqldscv Records [id number]#1.00[facility] Outside [id number]#1.00OTCleveland Clinic Fairview HospitalPatient Handouton 64-74-8122Ioxzfwf Handout [address] [facility] Extensions [address] March 24, 2021 Nati Santos with date of 1985 was in the emergency room through [facility] on March 22, 2021. She was diagnosed with flank strain. This office did not follow her for time off with this recent exacerbation of low back pain and has not authorized this time off. ER did recommend return to work on March 24, 2021. Trice Jernigan, [place] Family Nurse PractitionerOhio State University Wexner Medical CenterConsent Formson 03-23-2021 Consent [id number]#1.00[facility] HospitalCoding Summaryon 38-24-4484Zklzun SummaryHTMLBase 64 KqxnciupBJj1jEq+PGhlYWQ+VN6TDHHbT43xkQSsyO1PZ9hXIW2VEDMRLPJEGY4GXN5bhWN2PTehE7Ag biAv [file] b2x (more content not included)...[facility] HospitalOutside Recordson 51-20-6804Zmcnuqt [id number]#1.00OTGTIFF [facility] HospitalOutside Recordson 85-10-1509Gsnoaza Records [id number]#1.00OTPrem[facility] Center2019 Novel Coronavirus (CoVID-19), SIMÓN LCon 13-56-9587JMHG-CoV-2 (COVID-19) RNA SIMÓN+probe Ql (Unsp spec)Not detectedInvalid Interpretation [facility] Comment on above:Order Comment: [id number] Comment: This nucleic acid amplification test was developed and its performance characteristics determined by [employer]. Nucleic acid amplification tests include RT- PCR and TMA. This test has not been FDA cleared or approved. This test has been authorized by FDA under an Emergency Use Authorization (EUA). This test is only authorized for the duration of time the declaration that circumstances exist justifying the authorization of the emergency use of in vitro diagnostic tests for detection of SARS-CoV-2 virus and/or diagnosis of COVID-19 infection under section 564(b)(1) of the Act, 21 U.S.C. 360bbb-3(b) (1), unless the authorization is terminated or revoked sooner. When diagnostic testing is negative, the possibility of a false negative result should be considered in the context of a patient's recent exposures and the presence of clinical signs and symptoms consistent with COVID-19. An individual without symptoms of COVID-19 and who is not shedding SARS-CoV-2 virus would expect to have a negative (not detected) result in this assay. Performed At: [address] [id number] Kenyatta Morgan PhD Ph:[phone] By: #### [id number] ####[facility] (DEFAULT)[address] [place] [address]Vuieqdm Recordson 92-00-9762Sdtvyig [id number]#1.00OTGTIFF [facility] Medical CenterOutside Recordson 25-10-9128Kpwtlho Records [id number]#1.00[facility]GTR[facility] Outside [id number]#1.00OTCleveland Clinic Fairview HospitalOutside Recordson 59-94-6942Wszowjp Records [id number]#1.00[facility] Outside [id number]#1.00[facility] Records [id number]#1.00[facility] Outside Recordson 42-45-1256Ibtmote Records [id number]#1.00[facility] Outside Recordson 74-82-7435Zspedqd Records [id number]#1.00[facility] Patient Handouton 38-50-0045Outuldb HandoutNephrology Peripheral Edema Peripheral edema is swelling that is caused by a buildup of fluid. Peripheral edema most often affects the lower legs, ankles, and feet. It can also develop in the arms, hands, and face. The area of the body that has peripheral edema will look swollen. It may also feel heavy or warm. Your clothes may start to feel tight. Pressing on the area may make a temporary dent in your skin. You may not be able to move your swollen arm or leg as much as usual. There are many causes of peripheral edema. It can happen because of a complication of other conditions such as congestive heart failure, kidney disease, or a problem with your blood circulation. It also can be a side effect of certain medicines or because of an infection. It often happens to women d uring . Sometimes, the cause is not known. Follow these instructions at home: Managing pain, stiffness, and swelling ? Raise (elevate) your legs while you are sitting or lying down. ? Move around often to prevent stiffness and to lessen swelling. ? Do not sit or stand for long periods of time. ? Wear support stockings as told by your health care provider. Medicines ? Take qgwu-fia-xbkfwud and prescription medicines only as told by your health care provider. ? Your health care provider may prescribe medicine to help your body get rid of excess water (diuretic). General instructions ? Pay attention to any changes in your symptoms. ? Follow instructions from your health care provider about limiting salt (sodium) in your diet. Sometimes, eating less salt may reduce swelling. ? Moisturize skin daily to help prevent skin from cracking and draining. ? Keep all follow-up visits as told by your health care provider. This is important. Contact a health care provider if you have: ? A fever. ? Edema that starts suddenly or is getting worse, especially if you are or have a medical condition. ? Swelling in only one leg. ? Increased swelling, redness, or pain in one or both of your legs. ? Drainage or sores at the area where you have edema. Get help right away if you: ? Develop shortness of breath, especially when you are lying down. ? Have pain in your chest or abdomen. ? Feel weak. ? Feel faint. Summary ? Peripheral edema is swelling that is caused by a buildup of fluid. Peripheral edema most often affects the lower legs, ankles, and feet. ? Move around often to prevent stiffness and to lessen swelling. Do not sit or stand for long periods of time. ? Pay attention to any changes in your symptoms. ? Contact a health care provider if you have edema that starts suddenly or is getting worse, especially if you are or have a medical condition. ? Get help right away if you develop shortness of breath, especially when lying down. This information is not intended to replace advice given to you by your health care provider. Make sure you discuss any questions you have with your health care provider. Document Revised: 03/06/2019 Document Reviewed: 03/06/2019 [employer] Patient Education ? 2019 [employer].[facility] Medical CenterOutside Recordson 24-02-0302Zcxianc Records [id number]#1.00OTGTCoshocton Regional Medical Center Coding Summaryon 07-14-9047Kkyoxz SummaryHTMLBase 64 AnlawbcfHHo9bGd+PGhlYWQ+GO1UAXTdW83abHTkaA4BK1aBSN7OXRUVKXOPYS2RBI7nfMZ6SJjwK5Ba biAv [file] b2x (more content not included)...NormalDunlap Memorial Hospital Hospital.Auto Diff 1on 19-80-3892Zxjh [place] %6 %Normal1-12[facility] HospitalComment on above:Performed By: #### [id number], [id number], [id number], [id number] ####[facility] (DEFAULT)[address] [place] [address] 51340Xpui Abs#0.0 r13Vsvpxc9.0-0.2 [facility] HospitalComment on above:Performed By: #### 4012354, [id number], 71053032, [id number] ####[facility] (DEFAULT)[address] [place] [address] 38019Qibrwqkfk/100 WBC (Bld)0.3 %Normal0.2-2.0[facility] Comment on above:Performed By: #### 4825401, [id number], 14004841, [id number] ####[facility] (DEFAULT)[address] [place] [address] 79352Zdp Abs# 0.1 k64Ckhwsk4.0-0.4[facility] HospitalComment on above:Performed By: #### 2229467, [id number], 20030209, [id number] ####[facility] (DEFAULT)[address] [place] [address] 44184Nbtwfcqpfqv/100 WBC (Bld)1.1 %Normal0.9-4.0 [facility] HospitalComment on above:Performed By: #### [id number], [id number], 91119041, [id number] ####[facility] (DEFAULT)[address] [place] [address] 95499Mrsyg Abs#1.2 i95Vkc6.3-2.9[facility] HospitalComment on above: Performed By: #### 1331474, [id number], 05546392, [id number] ####[facility] (DEFAULT)[address] [place] [address] 14694Hzprgrrhlur/100 WBC (Bld)15 %Ihthhu58-31Wfxanrva HospitalComment on above:Performed By: #### 7208504, [id number], 89991333, [id number] ####[facility] (DEFAULT)[address] [place] [address] 74179Kslb Abs#0.5 c16Gclndi3.0-0.8[facility] HospitalComment on above:Performed By: #### 3729155, [id number], 09963029, [id number] ####[facility] (DEFAULT)[address] [place] [address] 96438Dfkv Abs#6.1 x96Mreomt4.5-9.2[facility] HospitalComment on above:Performed By: #### 7136750, [id number], 76018448, [id number] ####[facility] (DEFAULT)[address] [place] [address] 49889Jevmgjqsimp/100 WBC (Bld)78 % Uhpzxa56-05Pqxzbxeq HospitalComment on above:Performed By: #### 4631308, [id number], 61475063, [id number] ####[facility] (DEFAULT)[address] [place] [address] 42288FAO Standardon 25-43-0109bPRI Non AA>60Invalid Interpretation CodeDunlap Memorial Hospital HospitalComment on above:Performed By: #### 9405937, [id number], 67440579, [id number] ####[facility] (DEFAULT)[address] [place] [address] 96079dGAA AA>60Invalid Interpretation CodeDunlap Memorial Hospital HospitalComment on above:Result Comment: Chronic Kidney disease could be indicated at eGFRs of less than 60 ml/min/1.73m2. Kidney Failure is indicated at less than 15 ml/min/1.76d7Gnvzaphhr By: #### 0530749, [id number], 81004629, [id number] ####[facility] (DEFAULT)[address] [place] [address] 30672Dhnzv gap [Moles/Vol]14.0 mmol/LNormal5.0-19.0[facility] HospitalComment on above:Performed By: #### 8294728, [id number], 11563413, [id number] ####[facility] (DEFAULT)[address] [place] [address] 42393Ghgowau [Mass/Vol]9.0 mg/dLNormal8.9-10.3Mfairfield medical center HospitalComment on above:Performed By: #### 4247523, [id number], 32617658, [id number] ####[facility] (DEFAULT)[address] [place] [address] 37079Xwiyfxdj [Moles/Vol]99 mmol/VLdy746-217Lpfrcvwr HospitalComment on above:Performed By: #### 4045844, 9121214213, 27465233, 7084236582 ####[facility] (DEFAULT)[address] [place] [address] 67200ZD5 [Moles/Vol]28 mmol/GPwusdb42-20Uchymtxk HospitalComment on above: Performed By: #### 9904739, 7370584655, 33643247, 1485927701 ####[facility] (DEFAULT)[address] [place] [address] 33448Lwpqxfgxlr [Mass/Vol] 0.57 mg/dLLow0.60-1.30[facility] HospitalComment on above:Performed By: #### 4857456, 5445935037, 71945430, 7974869181 ####[facility] (DEFAULT)[address] [place] [address] 26875Pfuhdpl [Mass/Vol]122.0 mg/nQSrzw72.0-118.0 [facility] HospitalComment on above:Performed By: #### 8068687, 2950557433, 61607364, 3912905454 ####[facility] (DEFAULT)[address] [place] [address] 19255Movlcpeqti085 mOsm/LInvalid Interpretation CodeDunlap Memorial Hospital HospitalComment on above:Performed By: #### 1877838, [id number], 12658794, [id number] ####[facility] (DEFAULT)[address] [place] [address] 12154Dymlshist [Moles/Vol]3.5 mmol/LLow3.6-5.1Mfairfield medical center HospitalComment on above: Performed By: #### 4792760, [id number], 54669377, 6438901124 ####[facility] (DEFAULT)[address] [place] [address] 56093Irlxtn [Moles/Vol]137.0 mmol/EXarbev659.0-144.0[facility] HospitalComment on above:Performed By: #### 0071116, [id number], 22841849, 1251551263 ####[facility] (DEFAULT)[address] [place] [address] 44251Smuh nitrogen [Mass/Vol]14 mg/dLNormal8-26 [facility] HospitalComment on above:Performed By: #### 5159004, [id number], 82498053, [id number] ####[facility] (DEFAULT)[address] [place] [address] 96540Vzip nitrogen/Creatinine [Mass ratio]25.0 mg/mgHigh4.6-16.2 [facility] HospitalComment on above:Performed By: #### 7944550, 6792960734, 33559565, 7271061612 ####[facility] (DEFAULT)[address] [place] [address] 72675MWV w/ Auto Diffon 35-25-1095Dvwparaneap distribution width (RBC) [Ratio]15.6 %High11.5-15.0[facility] HospitalComment on above:Performed By: #### 8033078, 5568227457, 30553978, 0065603588 ####[facility] (DEFAULT)[address] [place] [address] 77041Bgduwdkywb (Bld) [Volume fraction]36.5 %Ehfccq09.7-40.4[facility] HospitalComment on above:Performed By: #### 6025098, 4859677591, 75545529, 2472814439 ####[facility] (DEFAULT)[address] [place] [address] 41320Ehwrghdjij (Bld) [Mass/Vol]12.0 g/aKNvjxka95.3-15.9[facility] HospitalComment on above:Performed By: #### 5898323, [id number], 23223707, 7790321081 ####[facility] (DEFAULT)[address] [place] [address] 08755Noaes WBC7.9 p91Qodseld Interpretation CodeDunlap Memorial Hospital HospitalComment on above:Performed By: #### 5798844, [id number], 61781247, 3548743117 ####[facility] (DEFAULT)[address] [place] [address] 93676Mde Diff?AutoNormalDunlap Memorial Hospital HospitalComment on above:Performed By: #### 5830264, 7631242700, 97480919, 4105365127 ####[facility] (DEFAULT)[address] [place] [address] 58062CEV (RBC) [Entitic mass]27 xfCoawas17-43 [facility] HospitalComment on above:Performed By: #### 4430619, [id number], 88156975, 0717759154 ####[facility] (DEFAULT)[address] [place] [address] 68835PCBO (RBC) [Mass/Vol]33 g/wEVmvyli93-65Ylmmolxp HospitalComment on above:Performed By: #### 4154918, 2268690809, 08938146, 9801792591 ####[facility] (DEFAULT)[address] [place] [address] 99582HUU (RBC) [Entitic vol]82 eJIbgngy70-727Zzpnpmab HospitalComment on above:Performed By: #### 4168049, 3426368763, 95810642, [id number] ####[facility] (DEFAULT)[address] [place] [address] 08736Koxjhjwj593 p19Tueymb425-484 [facility] HospitalComment on above:Performed By: #### 6109444, 2258258124, 09064610, 7060984800 ####[facility] (DEFAULT)[address] [place] [address] 84355Piqcebwa mean volume (Bld) [Entitic vol]9.3 fLNormal6.3-10.2 [facility] HospitalComment on above:Performed By: #### 1298518, 7525831896, 14173393, 3703842419 ####[facility] (DEFAULT)[address] [place] [address] 46860VGN0.46 t62Wwunpm5.70-5.30[facility] HospitalComment on above: Performed By: #### 1787381, 1049794553, 14055987, 6934972448 ####[facility] (DEFAULT)[address] [place] [address] 74816PRC1.9 q03Mnjtiw 3.5-10.5[facility] HospitalComment on above:Performed By: #### 4580130, [id number], 26511241, 0613355312 ####[facility] (DEFAULT)[address] [place] [address] 84144PcbR1j Standardon 12-30-2020.Hb12.8Invalid Interpretation [facility] CenterComment on above:Performed By: #### 2972995, [id number], 48952430, [id number] ####[facility] (DEFAULT)[address] [place] [address] 35590.Hgb A1c0.57 g/dLInvalid Interpretation [facility] HospitalComment on above:Performed By: #### 3609149, [id number], 51901076, 7610037287 ####[facility] (DEFAULT)[address] [place] [address] 91550Pkbvcof [Mass/Vol]132 mg/dLInvalid Interpretation [facility] Hospital Comment on above:Performed By: #### 6977850, 7910708123, 49746412, [id number] ####[facility] (DEFAULT)[address] [place], [place] [address]LhE7u (Bld) [Mass fraction]6.2 %Normal4.6-6.2Mfairfield medical center HospitalComment on above: Performed By: #### 1101192, 6659610506, 04458892, 2575614509 ####[facility] (DEFAULT)[address] [place], [place] [address]DJ PELVIS AND TRANSVAG on 43-49-2541KQ PELVIS AND TRANSVAGEXAMINATION: US PELVIS AND TRANSVAG HISTORY: Cyst of right ovary COMPARISON: 08/07/2020 FINDINGS: The uterus is normal in size, contour and myometrial echotexture measuring 9.9 x 3.2 x 5.8 cm. Left myometrial mass measuring 5.7 x 5.1 x 4.8 cm. Anteverted. The endometrium measures 12.9 mm, within normal limits. The right ovary is not definitively visualized. The left ovary is normal in size, contour and echotexture measuring 4.1 x 3.4 x 3.0 cm. IMPRESSION: Nonvisualization of the right ovary on the current exam 5.7 cm left myometrial mass, a fibroid is statistically favored Electronically authenticated by: ANA PAULA CONNELL Date: 2020-09-18 14:[address] [place], [place] [address]US PELVIS AND TRANSVAGon 84-28-4976LD PELVIS AND TRANSVAG EXAMINATION: US PELVIS AND TRANSVAG HISTORY: Abdominal pain ; right pelvic pain for one week COMPARISON: No relevant comparison available. TECHNIQUE: Transabdominal and transvaginal sonographic examination. FINDINGS: UTERUS: Within the left uterine wall is a heterogeneous myometrial mass, 5.4 x 4.7 x 5.1 cm suspected to represent a leiomyoma. Uterus size: 13.9 x 11.0 x 7.4 cm ENDOMETRIUM: Normal homogeneous appearance. Endometrial thickness: 9 mm RIGHT OVARY: Contains a complex cyst, 3.2 x 2.9 x 2.7 cm. Duplex Doppler demonstrates normal waveform and flow; resistive index 0.44 Ovary size: 5.2 x 4.3 x 3.5 cm LEFT OVARY: Normal size and appearance. Duplex Doppler demonstrates normal waveform and flow; resistive index 0.63 Ovary size: 4.3 x 3.5 x 3.2 cm CUL-DE-SAC: Unremarkable. No significant free fluid. BLADDER: Unremarkable. OTHER: None. IMPRESSION: 1. Complex right ovarian cyst, 3.2 cm in diameter. Follow-up ultrasound evaluation 6 weeks is recommended to document regression. 2. Uterine myometrial mass favoring a leiomyoma, 5.4 cm in diameter. Electronically authenticated by: KAYLYN HUNT Date: 2020-08-07 09:30[facility] Vital Signs Date TimeVital SignValuePerforming WrwpucchvAyyfbmur71-90-5207 11:17-0500Body mapzhu300.6 cmCorey Christiana DO Work Phone: [facility]ultonNwilufqdor42-15-7128 11:17-0500Body mass index (BMI) [Ratio]58.72 kg/e9Kfjdc Christiana DO Work Phone: [facility] FultonQcoagqnpto67-60-4242 11:17-0500Body uwpvos054.02 kgCorey Christiana DO Work Phone: [facility] FultonOnevtvlxmz34-06-8942 11:17-0500Diastolic blood lilapvhn98 mm[Hg]David Christiana DO Work Phone: [facility] FultonTgrgieiuzh12-38-0583 11:17-0500Systolic blood mm[Hg]David Christiana DO Work Phone: [facility] FultonDjfaqbulvj14-89-0140 13:30-0500Body gyacfo756.91 cmApril Ahumada MD Work Phone: [phone]11-04-2025 13:30-0500 Body mass index (BMI) [Ratio]58.1 kg/g1LbhhmgApril Ahumada MD Work Phone: [phone]11-04-2025 13:30-0500 Body pdaoeb893.01 kgApril Ahumada MD Work Phone: [phone]11-04-2025 13:30-0500 Diastolic blood arhbhqft04 mm[Hg]April Ahumada MD Work Phone: [phone]11-04-2025 13:30-0500 Heart rate70 /Cherise Ahumada MD Work Phone: [phone]11-04-2025 13:30-0500 Systolic blood mm[Hg]April Ahumada MD Work Phone: 1(468)[address] [place], [place] 6765311-03-2025 13:07-0500 Body .91 cmApril Ahumada MD Work Phone: [phone] [place], [place] 6765311-03-2025 13:07-0500 Body mass index (BMI) [Ratio]58.3 kg/x2QidxeqApril Ahumada MD Work Phone: 1([phone] [place], [place] 6765311-03-2025 13:07-0500 Body oaidqm138.46 kgApril Ahumada MD Work Phone: 1([phone] [place], [place] 6765311-03-2025 13:07-0500 Diastolic blood vcqcuyyq68 mm[Hg]April Ahumada MD Work Phone: 1(890)[address] [place], [place] 6765311-03-2025 13:07-0500 Heart rate67 /Cherise Ahumada MD Work Phone: [phone] [place], [place] 6765311-03-2025 13:07-0500 Systolic blood hbwccopx342 mm[Hg]April Ahumada MD Work Phone: 1(240)[address] [place], [place] 6765310-29-2025 09:09-0400 Body wacuyi518.91 cmApril Ahumada MD Work Phone: 1(220)[address] [place], [place] 6765310-29-2025 09:09-0400 Body mass index (BMI) [Ratio]58.1 kg/p9ZylkwwApril Ahumada MD Work Phone: 1(333)[address] [place], [place] 6765310-29-2025 09:09-0400 Body waymmf722.01 kgApril Ahumada MD Work Phone: 1(408)[address] [place], [place] 6765310-29-2025 09:09-0400 Diastolic blood dkdkipmy47 mm[Hg]April Ahumada MD Work Phone: 1([phone])[address] [place], [place] 67[address]310-29-2025 09:09-0400 Heart rate66 /Cherise Ahumada MD Work Phone: [phone]10-29-2025 09:09-0400 SaO2% (BldA) [Mass fraction]96 %April Ahumada MD Work Phone: [phone]10-29-2025 09:09-0400 Systolic blood pffldyrn698 mm[Hg]April Ahumada MD Work Phone: 1(026)919-[address] [place], [place] 5303810-13-2025 14:46-0400 Body dyplwi802.6 cmArgentina Richter MD Work Phone: [facility]10-13-2025 14:46-0400Body mass index (BMI) [Ratio]58.88 kg/k6DsygortArgentina Richter MD Work Phone: [facility]10-13-2025 14:46-0400Body qaqfvfbrxnq58.2 [degF]Argentina Richter MD Work Phone: [facility]10-13-2025 14:46-0400Body yvgexb555.47 kgArgentina Richter MD Work Phone: [facility]10-13-2025 11:30-0400Body sgjiam347.11 cmApril Ahumada MD Work Phone: [phone]10-13-2025 11:30-0400 Body mass index (BMI) [Ratio]61 kg/t4JyduubApril Ahumada MD Work Phone: [phone]10-13-2025 11:30-0400 Body vawqrb905.35 kgApril Ahumada MD Work Phone: [phone]10-13-2025 11:30-0400 Diastolic blood fzmxkgin21 mm[Hg]April Ahumada MD Work Phone: [phone]10-13-2025 11:30-0400 Heart rate59 /Cherise Ahumada MD Work Phone: [phone] [facility]10-13-2025 11:30-0400 Respiratory rate18 /Cherise Ahumada MD Work Phone: 1(995)[address]10-13-2025 11:30-0400 Systolic blood rgdxgcyv754 mm[Hg]April Ahumada MD Work Phone: 1(671)[address]10-09-2025 13:49-0400 Body .64 cmApril Ahumada MD Work Phone: 1(826)[address]10-09-2025 13:49-0400 Body mass index (BMI) [Ratio]58.7 kg/k7LwqwstApril Ahumada MD Work Phone: 1(047)[address] [place], [place] 6765310-09-2025 13:49-0400 Body myzgob742.1 kgApril Ahumada MD Work Phone: 1(638)[address] [place], [place] 6765310-09-2025 13:49-0400 Diastolic blood ejhvjmoc16 mm[Hg]April Ahumada MD Work Phone: 1(035)[address] [place], [place] 6765310-09-2025 13:49-0400 Heart rate75 /Cherise Ahumada MD Work Phone: 1(720)[address] [place], [place] 6765310-09-2025 13:49-0400 Systolic blood lheyjzsc071 mm[Hg]April Ahumada MD Work Phone: 1(231)[address]10-02-2025 15:34-0400 Body dwgjxe386.6 cmLisa Krotzer REWIND OPERATOR-ANVIL WORKER Work Phone: [facility]10-02-2025 15:34-0400Body mass index (BMI) [Ratio]58.36 kg/m2Lisa Krotzer REWIND OPERATOR-ANVIL WORKER Work Phone: [facility]10-02-2025 15:34-0400Body .02 kgLisa Krotzer REWIND OPERATOR-ANVIL WORKER Work Phone: [facility]10-02-2025 15:34-0400Diastolic blood hymuaohw56 mm[Hg]Trice Darrell REWIND OPERATOR-ANVIL WORKER Work Phone: [facility]10-02-2025 15:34-0400Systolic blood snzezvco399 mm[Hg]Trice Ramírez REWIND OPERATOR-ANVIL WORKER Work Phone: [facility]09-19-2025 09:38-0400Body hhfbde009.64 cmApril Ahumada MD Work Phone: [phone]44[facility]09-19-2025 09:38-0400 Body mass index (BMI) [Ratio]59.3 kg/c4SadfaxApril Ahumada MD Work Phone: 1([phone]33[facility]09-19-2025 09:38-0400 Body atrwve505.92 kgApril Ahumada MD Work Phone: 1(177)[address]09-12-2025 13:57-0400 Body .64 cmApril Ahumada MD Work Phone: 1(473)[address]09-12-2025 13:57-0400 Body mass index (BMI) [Ratio]59.3 kg/d5AfdfcdApril Ahumada MD Work Phone: 1([phone]12[facility]09-12-2025 13:57-0400 Body .92 kgApril Ahumada MD Work Phone: 1([phone]09-12-2025 13:57-0400 Diastolic blood ptnhoacx50 mm[Hg]April Ahumada MD Work Phone: 1(246)688-[address] [place], [place] 5303809-12-2025 13:57-0400 Heart rate66 /minApril Ahumada MD Work Phone: 1(720)506-[address] [place], [place] 5303809-12-2025 13:57-0400 Systolic blood lejviotw513 mm[Hg]April Ahumada MD Work Phone: [phone]([phone]09-02-2025 14:32-0400 Body .64 cmApril Ahumada MD Work Phone: [phone]09-02-2025 14:32-0400 Body mass index (BMI) [Ratio]59.7 kg/a4BozkbjApril Ahumada MD Work Phone: 1(743)[address]09-02-2025 14:32-0400 Body kmfrak015.82 kgApril Ahumada MD Work Phone: 1(325)[address] [place], [place] 6765309-02-2025 14:32-0400 Diastolic blood ajfsyvpt36 mm[Hg]April Ahumada MD Work Phone: 1(213)[address] [place], [place] 6765309-02-2025 14:32-0400 Heart rate76 /Cherise Ahumada MD Work Phone: 1(433)[address] [place], [place] 6765309-02-2025 14:32-0400 Systolic blood ttmmavhr562 mm[Hg]April Ahumada MD Work Phone: 1(250)[address] [place], [place] 6765308-28-2025 09:18-0400 Body ybquqs702.64 cmApril Ahumada MD Work Phone: 1(228)[address] [place], [place] 6765308-28-2025 09:18-0400 Body mass index (BMI) [Ratio]59.2 kg/a7FefhitApril Ahumada MD Work Phone: 1(428)[address] [place], [place] 6765308-28-2025 09:18-0400 Body jcwzbo659.46 kgApril Ahumada MD Work Phone: 1(353)[address] [place], [place] 6765308-28-2025 09:18-0400 Diastolic blood hgvqxaom37 mm[Hg]April Ahumada MD Work Phone: 1(892)[address] [place], [place] 6765308-28-2025 09:18-0400 Heart rate78 /Cherise Ahumada MD Work Phone: 1(706)[address] [place], [place] 6765308-28-2025 09:18-0400 SaO2% (BldA) [Mass fraction]93 %April Ahumada MD Work Phone: 1(707)[address] [place], [place] 6765308-28-2025 09:18-0400 Systolic blood nrwgxtuv443 mm[Hg]April Ahumada MD Work Phone: 1(957)[address] [place], [place] 6765308-19-2025 15:03-0400 Body oaiigh951.6 cmArgentina Richter MD Work Phone: [facility]08-19-2025 15:03-0400Body mass index (BMI) [Ratio]58.91 kg/n6BwuuavlArgentina Richter MD Work Phone: [facility]08-19-2025 15:03-0400Body .56 kgArgentina Richter MD Work Phone: [facility]08-18-2025 09:57-0400Body dobkij433.64 cmApril Ahumada MD Work Phone: 1(695)[address]08-18-2025 09:57-0400 Body mass index (BMI) [Ratio]129.8 kg/t8AyxycoApril Ahumada MD Work Phone: 1(801)678[address]08-18-2025 09:57-0400 Body pfdesi722 kgApril Ahumada MD Work Phone: 1(001)716[address]08-18-2025 09:57-0400 Diastolic blood rpbcijxu16 mm[Hg]April Ahumada MD Work Phone: 1(357)[address]08-18-2025 09:57-0400 Heart rate71 /Cherise Ahumada MD Work Phone: 1(832)[address]08-18-2025 09:57-0400 Systolic blood mm[Hg]April Ahumada MD Work Phone: 1(311)614[address]08-14-2025 20:00-0400 Diastolic blood rivxolvk81 mm[Hg]April Ahumada MD Work Phone: 1(445)967[address]08-14-2025 20:00-0400 Heart rate75 /Cherise Ahumada MD Work Phone: 1(934)7[address]08-14-2025 20:00-0400 SaO2% (BldA) [Mass fraction]94 %April Ahumada MD Work Phone: 1([phone]08-14-2025 20:00-0400 Systolic blood uodhxgez554 mm[Hg]April Ahumada MD Work Phone: 1(353)[address]08-14-2025 18:45-0400 Respiratory rate20 /minApril Ahumada MD Work Phone: 1(816)[address]08-14-2025 15:41-0400 Body pifaai477.64 cmApril Ahumada MD Work Phone: 1(593)[address]08-14-2025 15:41-0400 Body mmeltryltqw38.5 [degF]April Ahumada MD Work Phone: 1(132)9[address]08-14-2025 15:41-0400 Body kgApril Ahumada MD Work Phone: 1(181)[address] [place], [place] 6765307-02-2025 11:06-0400 Body .64 cmApril Ahumada MD Work Phone: 1(059)[address] [place], [place] 6765307-02-2025 11:06-0400 Body mass index (BMI) [Ratio]58.6 kg/c5QunsexApril Ahumada MD Work Phone: 1(656)[address]07-02-2025 11:06-0400 Body lzmyobsogsl88 [degF]April Ahumada MD Work Phone: 1(519)[address] [place], [place] 6765307-02-2025 11:06-0400 Body ujsoja908.65 kgApril Ahumada MD Work Phone: 1(782)[address] [place], [place] 6765307-02-2025 11:06-0400 Diastolic blood agtfnjqz79 mm[Hg]April Ahumada MD Work Phone: 1(693)[address] [place], [place] 6765307-02-2025 11:06-0400 Heart rate63 /Cherise Ahumada MD Work Phone: 1(238)[address] [place], [place] 6765307-02-2025 11:06-0400 SaO2% (BldA) [Mass fraction]97 %April Ahumada MD Work Phone: 1(264)6[address]07-02-2025 11:06-0400 Systolic blood dceqqzjf790 mm[Hg]April Ahumada MD Work Phone: [facility]04-23-2025 09:49-0400 Body mlashv552.64 cmProm[facility]04-23-2025 09:49-0400Body mass index (BMI) [Ratio]58.6 kg/f4NrjpgygqaPromedica [facility]04-23-2025 09:49-0400Body edaglw492.65 kgPromedica [facility]04-23-2025 09:49-0400Diastolic blood mm[Hg][facility] 10-16-2024 09:49-0400Heart rate72 /minProm[facility]ica [facility] 10-16-2024 09:49-0400Systolic blood mmjzypue935 mm[Hg][facility]04-15-2025 10:21-0400Body qedmsa124.6 cmLiam Waggoner MD Work Phone: [facility]onJdcwvhndcc82-68-9739 10:21-0400Body mass index (BMI) [Ratio]58.43 kg/t1YhabzsLiam Waggoner MD Work Phone: [facility] FultonTpyjpnpsxc90-13-8229 10:21-0400Body gfrgiq007.2 kgLiam Waggoner MD Work Phone: [facility] FultonDwlmkqlrbu29-16-2101 10:21-0400Diastolic blood niuqjqup39 mm[Hg]Liam Waggoner MD Work Phone: [facility] FultonTkjovxbaiw42-35-1838 10:21-0400Heart rate76 /min Liam Waggoner MD Work Phone: [place] [address]Smrcvmravv32-18-8899 10:21-0400Systolic blood aapcdllg231 mm[Hg]Liam Waggoner MD Work Phone: [facility] FultonMjwrjgkxky01-88-2953 11:06-0400Body yfdjup799.64 cmProm[facility]04-10-2025 11:06-0400Body mass index (BMI) [Ratio]58.4 kg/s6UkbyitbwdPromedica [facility]04-10-2025 11:06-0400Body .2 kgProm[facility]ica [facility]04-10-2025 11:06-0400Diastolic blood mgehypwj07 mm[Hg][facility]04-10-2025 11:06-0400 Heart rate77 /[facility]04-10-2025 11:06-0400Systolic blood yuwpvbmw761 mm[Hg][facility]03-20-2025 09:06-0400 Body .64 cmProm[facility]ica [facility]03-20-2025 09:06-0400Body mass index (BMI) [Ratio]59.3 kg/r3YxezprwuwPromedica [facility]03-20-2025 09:06-0400Body fmfaiz847.58 kgPromedica [facility]03-20-2025 09:06-0400Diastolic blood otjrkoab79 mm[Hg][facility] 09-12-2024 09:06-0400Heart rate66 /[facility] 09-12-2024 09:06-0400Systolic blood mm[Hg][facility]02-24-2025 15:00-0500Body ttalkg500.64 cmProm[facility]ica [facility]02-24-2025 15:00-0500Body mass index (BMI) [Ratio]57.2 kg/h2BukffbjwwPromedica [facility]02-24-2025 15:00-0500Body howmgm289 kgPromedica [facility]02-24-2025 15:00-0500Diastolic blood jjekucsx58 mm[Hg][facility]02-24-2025 15:00-0500Heart rate61 /[facility]02-24-2025 15:00-0500Respiratory rate18 /[facility]02-24-2025 15:00-2909HmA4% (BldA) [Mass fraction]96 %[facility]02-24-2025 15:00-0500Systolic blood znzecopa359 mm[Hg] [facility]02-18-2025 14:16-0500Body iiymjj777.6 cmLiam Waggoner MD Work Phone: 1(419)[address] [place], [place] 9738802-18-2025 14:16-0500Body mass index (BMI) [Ratio]58.91 kg/a5QryamxLiam Waggoner MD Work Phone: 1(807)[address] [place], [place] 9738802-18-2025 14:16-0500Body jxpmqo520.56 kgLiam Waggoner MD Work Phone: 1(561)[address] [place], [place] 9738802-18-2025 14:16-0500Diastolic blood avbyttpi29 mm[Hg]Liam Waggoner MD Work Phone: 1(350)[address] [place], [place] 9738802-18-2025 14:16-0500Heart rate66 /min Liam Waggoner MD Work Phone: 1(087)[address] [place], [place] 9738802-18-2025 14:16-0500Systolic blood hqinynuq127 mm[Hg]Liam Waggoner MD Work Phone: 1(664)[address] [place], [place] 9738811-18-2024 13:18-0500Body bjulfy642.64 cmProm[facility]ica [facility]11-18-2024 13:18-0500Body mass index (BMI) [Ratio]57.6 kg/f7DsjyiusiaPromedica [facility]11-18-2024 13:18-0500Body eqiivyxzrvx41.6 [degF][facility]11-18-2024 13:18-0500Body hfksof824.93 kgPromedica [facility]11-18-2024 13:18-0500Diastolic blood rgqaqrzs34 mm[Hg][facility]11-18-2024 13:18-0500 Heart rate66 /minPromedica [facility]11-18-2024 13:18-0500Systolic blood snebsozs488 mm[Hg][facility]10-22-2024 11:35-0400 Body iacpew295.6 cmLiam Waggoner MD Work Phone: 1(453)[address] [place], [place] 9738810-22-2024 11:35-0400Body mass index (BMI) [Ratio]57.46 kg/i7FtxuebLiam Waggoner MD Work Phone: 1([phone] FultonNdtyqkoxuf14-72-2990 11:35-0400Body yznoqi748.48 kgLiam Waggoner MD Work Phone: [facility] FultonMcwbeydmjc76-95-9104 11:35-0400Diastolic blood psvgkvov66 mm[Hg]Liam Waggoner MD Work Phone: [facility] FultonJwdbtjqfpp21-57-4282 11:35-0400Systolic blood opmxvyhb652 mm[Hg]Liam Waggoner MD Work Phone: [facility] FultonVsesaigskg61-66-7422 11:09-0400Body .64 [facility]10-07-2024 11:09-0400Body mass index (BMI) [Ratio]57.9 kg/p7RttuuitkzPromedica [facility]10-07-2024 11:09-0400Body .83 [facility]10-07-2024 11:09-0400Diastolic blood jeyjxinv31 mm[Hg][facility]10-07-2024 11:09-0400 Heart rate68 /[facility]10-07-2024 11:09-0400 Respiratory rate16 /[facility]10-07-2024 11:09-0400 SaO2% (BldA) [Mass fraction]97 %[facility]10-07-2024 11:09-0400Systolic blood mm[Hg][facility] 01-03-2024 11:50-0400Body blidla219.64 cmProm[facility]ica [facility] 01-03-2024 11:50-0400Body mass index (BMI) [Ratio]57.9 kg/d5UertmncmqPromedica [facility]07-10-2024 11:50-0400Body .83 [facility]07-10-2024 11:50-0400Diastolic blood mncsytai85 mm[Hg][facility]07-10-2024 11:50-0400Heart rate66 /[facility]07-10-2024 11:50-0400Systolic blood rphorypt386 mm[Hg][facility]06-25-2024 11:22-0400Body odmzco249.64 cmProm[facility]ica [facility]06-25-2024 11:22-0400Body mass index (BMI) [Ratio]56.8 kg/k7VovodjadtPromedica [facility] Hospital06-25-2024 11:22-0400Body rlrqne660.66 kg [facility]06-25-2024 11:22-0400Diastolic blood jtelsqrv32 mm[Hg][facility]06-25-2024 11:22-0400Heart rate63 /min [facility]06-25-2024 11:22-0400Systolic blood fmeeteod972 mm[Hg][facility]06-17-2024 11:34-0400Body ywegyq759.64 cmProm[facility]ica [facility]06-17-2024 11:34-0400Body mass index (BMI) [Ratio]57.2 kg/o9AlieettbkPromedica [facility]06-17-2024 11:34-0400Body .02 [facility]06-17-2024 11:34-0400Diastolic blood ulxgpaot83 mm[Hg][facility]06-17-2024 11:34-0400 Heart rate67 /[facility]06-17-2024 11:34-0400Systolic blood pptlofir703 mm[Hg][facility]06-11-2024 11:02-0400 Body vlurzf205.64 cmProm[facility]ica [facility]06-11-2024 11:02-0400Body mass index (BMI) [Ratio]57.6 kg/j5DaypxbaxuPromedica [facility]06-11-2024 11:02-0400Body .93 [facility]06-11-2024 11:02-0400Diastolic blood ettlvlzp06 mm[Hg][facility] 12-05-2023 11:02-0400Heart rate67 /[facility] 12-05-2023 11:02-0400Systolic blood twsomwnw357 mm[Hg][facility]05-09-2024 15:17-0400Body lywieu583.64 cmProm[facility]ica [facility]05-09-2024 15:17-0400Body mass index (BMI) [Ratio]58.7 kg/w4AmfqhqtlyPromedica [facility]05-09-2024 15:17-0400Body qattof550.1 kgPromedica [facility]05-09-2024 15:17-0400Diastolic blood rydiqqup06 mm[Hg] [facility]05-09-2024 15:17-0400Heart rate76 /minPromedica [facility]05-09-2024 15:17-0400Systolic blood xhatuelx894 mm[Hg] [facility]12-22-2023 11:45-0500Body aavfmh835.64 cmNhungjeannette Ahumada Other [employer] Other 12-22-2023 11:45-0500Body mass index (BMI) [Ratio] 56.49 kg/t3Hbchkf Ede Other [employer] Other 12-22-2023 11:45-0500Body mioojl533.76 kgNhungjeannette Ede Other [employer] Other 12-22-2023 11:45-0500Diastolic blood liniyjzz89 mm[Hg] April Ahumada Other [employer] Other 12-22-2023 11:45-0500Systolic blood jhubqjcf787 mm[Hg] April Ahumada Other [employer] Other 10-26-2023 10:30-0400Body iarwww970.64 cmBrigitte Mckay Other [employer] Other 10-26-2023 10:30-0400Body mass index (BMI) [Ratio] 58.91 kg/j1NaoqokvwBrigitte Mckay Other [employer] Other 10-26-2023 10:30-0400Body xxylnmfrsvp65 [degF]Brigitte Finer Other [employer] Other 10-26-2023 10:30-0400Body uxricn002.56 kgBrigitte Mckay Other [employer] Other 10-26-2023 10:30-0400Respiratory rate18 /minBrigitte Mckay Other [employer] Other 10-26-2023 10:30-0915FzT6% (BldA) [Mass fraction]97 % Brigitte Walljoanne Other [employer] Other 08-29-2023 11:00-0400Body cjuumz637.64 cmApril Ahumada Other [employer] Other 08-29-2023 11:00-0400Body mass index (BMI) [Ratio] 59.07 kg/d6AjpuusApril Ahumada Other [employer] Other 08-29-2023 11:00-0400Body ufqvrs369.02 kgApril Ahumada Other [employer] Other 08-29-2023 11:00-0400Diastolic blood ulpftrzx76 mm[Hg] April Ahumada Other [employer] Other 08-29-2023 11:00-0400Systolic blood bxalistf323 mm[Hg] April Ahumada Other [employer] Other 03-14-2023 11:30-0400Body gxtywa685.64 Rob Nichole Other [employer] Other 03-14-2023 11:30-0400Body mass index (BMI) [Ratio] 57.13 kg/g6Eckwe Nichole Other [employer] Other 03-14-2023 11:30-0400Body bkosfp847.57 kgPeggy Nichole Other [employer] Other 03-14-2023 11:30-0400Diastolic blood izbgjekb06 mm[Hg] Bianka Nichole Other [employer] Other 03-14-2023 11:30-9959XsY9% (BldA) [Mass fraction]98 % Bianka Nichole Other [employer] Other 03-14-2023 11:30-0400Systolic blood owjsqacn320 mm[Hg] Bianka Nichole Other [employer] Other 01-01-2023 14:53-0500Body .1 [degF] [employer] Phone: [facility]01-01-2023 14:53-0500 Diastolic blood mikecpqk32 mm[Hg][employer] Phone: [facility]01-01-2023 14:53-0500 Heart rate71 /[employer] Work Phone: [facility]01-01-2023 14:53-0500 Respiratory rate18 /minSPyng Medical Work Phone: [facility]01-01-2023 14:53-0500 SaO2% (BldA) [Mass fraction]96 %[employer] Phone: [facility]01-01-2023 14:53-0500 Systolic blood ryswaqyk410 mm[Hg][employer] Phone: [facility]01-01-2023 14:50-0500 Body .64 cmServices [facility] Work Phone: [facility]01-01-2023 14:50-0500 Body yghqcx268.4 kgServices [facility] Work Phone: [facility]10-16-2022 11:10-0400 Body occjbs986.64 cmAmbdayanna Nelson Other [employer] Other 10-16-2022 11:10-0400Body mass index (BMI) [Ratio] 59.71 kg/z8YalqlNicole Nelson Other [employer] Other 10-16-2022 11:10-0400Body tolbmagaudg79.8 [degF]Nicole Nelson Other [employer] Other 10-16-2022 11:10-0400Body nmqfeu136.83 kgNicole Nelson Other [employer] Other 10-16-2022 11:10-0400Respiratory rate18 /minNicole Nelson Other [employer] Other 10-16-2022 11:10-5769UjJ2% (BldA) [Mass fraction]93 % Nicole Nelson Other [employer] Other Encounters Encounter DateEncounter TypeCare ProviderFacilityStart: 05-07-2025 End: 06-26-5967Xtlfrc flowsheetCorey Christiana DO Work Phone: [facility]YNStart: 05-07-2025 End: 99-18-0811Bttrfr flowsheetCorey Christiana DO Work Phone: [facility]BGYNStart: 05-07-2025 End: 68-23-6909Iahchl outpatient new 20 minutesCorey Christiana DO Work Phone: [facility] OBGYNComment on above:Menorrhagia with regular cycleStart: 05-07-2025 End: 31-07-9811ctffsgkgorOMKUD FAYESSICAONot AvailableStart: 04-29-2025 End: 52-74-4399aiztuquktmPsaxbd E Braun MD Work Phone: [phone])884-0182073-8996-[facility]rr[facility] Health GastroStart: 04-29-2025 End: 32-32-6718Bhjuczr encounter procedurePhilippjoby Clark Phyllis [facility] Work Phone: Start: 04-28-2025 End: 78-16-0985ytgpdlmjlsDfdrjv E Braun MD Work Phone: -[facility]art: 04-28-2025 End: 32-85-9820Wllxslg encounter Leisa Ahumada MD-[facility] Work Phone: Start: 04-23-2025 End: 46-98-1469czsshdjqejTcvgll E Braun MD Work Phone: 1(770) [phone]-Gvegvcvqu Sleep LabStart: 04-23-2025 End: 23-84-7497Qhgujqx encounter procedureKajal Guajardo [facility] Work Phone: Start: 52-57-0800Pfy-patient / Non-visitEly Dodge MD-[facility] Work Phone: Start: 04-16-2025 End: 60-87-6815nrawkipfxqIQQQ M KROTZEROhioHealth Pickerington Methodist Hospitaltart: 04-07-2025 End: 21-87-4732Hhrwmy outpatient visit 25 minutesArgentina Richter MD Work Phone: [facility] ThroatComment on above:Benign paroxysmal vertigo of right ear (Primary Dx); Meniere's disease of right ear; Dizziness; Fullness in ear, bilateralStart: 04-07-2025 End: 66-52-6874xusoqkzotuQGHWJIN J [facility] Ambulatory PPGStart: 04-07-2025 End: 40-65-1718hlijyrzziiBludfh E Braun MD Work Phone: [facility] Work Phone: Start: 04-07-2025 End: 68-84-2119Nqzhctw encounter procedureBrigitte Gomez [facility] Work Phone: Start: 04-03-2025 End: 37-33-3559aulxmrducqKnhuqc E Braun MD Work Phone: [facility] Work Phone: Start: 04-03-2025 End: 44-64-0166Jivtkwb encounter procedureApril Ahumada MDAccess [facility] Work Phone: Start: 03-27-2025 End: 02-03-2523negndhvmonCOGD M [facility] Ambulatory PPGStart: 03-27-2025 End: 11-41-5439Iqhhbbrld for gynecological examination (general) (routine) without abnormal findingsTrice Ramírez REWIND OPERATOR-ANVIL WORKER Work Phone: [facility] Work Phone: Start: 03-27-2025 End: 93-87-8002Qfuyshw preventive medicine new patient 40-64yrsTrice Ramírez REWIND OPERATOR-ANVIL WORKER Work Phone: [facility] Obstetrics/GynecologyComment on above:Well woman exam with routine gynecological exam (Primary Dx); Pap smear, as part of routine gynecological examination; Standardized adult depression screening tool completed; Abnormal uterine bleeding; Encounter for screening mammogram for malignant neoplasm of breastStart: 03-27-2025 End: 60-23-1031Vagcflv encounter procedureTrice Ramírez REWIND OPERATOR-ANVIL WORKER Work Phone: [facility] [employer] [facility]ertart: 03-15-2025 End: 98-04-4732Rqrqekp encounter procedureAdonis Ferguson APRN-[facility] Work Phone: Start: 03-15-2025 End: 14-94-8419ekwaymatsxMkwznt E Braun MD Work Phone: [facility] Work Phone: Start: 03-14-2025 End: 33-53-6447vhglnhrkmoOjokyx E Braun MD Work Phone: [facility] Work Phone: Start: 03-14-2025 End: 11-78-0877Kvyejdu encounter mayraAdonis Ferguson REWIND OPERATORMercy Hospital [facility] Work Phone: Start: 03-07-2025 End: 38-52-9849dbznqyebpvBnpedp E Braun MD Work Phone: [facility] Work Phone: Start: 03-07-2025 End: 08-67-6053Drznbnf encounter procedureApril Ahumada MD-[facility] Work Phone: Start: 03-07-2025 End: 85-47-3730ezuodoovwyIHTADRD J [facility] Hospitaltart: 20-83-2775Qyk-patient / Non-visitApoorfredy Dodge MD-[facility] Work Phone: Start: 03-03-2025 End: 92-80-3765Jlzgwipsy department patient visitMARJEANNETTE ValdiviaMediOzarks Medical Center HospitalStart: 02-25-2025 End: 79-31-6785gddkbbypzgScphbb E Braun MD Work Phone: [facility] Work Phone: Start: 02-25-2025 End: 14-75-2125Cgjzomp encounter Leisa Ahumada MD-[facility] Work Phone: Start: 02-20-2025 End: 42-87-8561myldmwdghrCxqxoc E Braun MD Work Phone: [facility] Work Phone: Start: 02-20-2025 End: 71-32-9829Hjcmdsj encounter procedureKajal Guajardo [facility] Work Phone: Start: 02-18-2025 End: 63-10-6773Zevynjqwm encounterArgentina Richter MD Work Phone: [facility] - ENTComment on above: MedicineStart: 51-05-1911cbwmmkkewjKWGBWY E B[facility]UNSelect [facility] Start: 02-11-2025 End: 96-75-4029Dnfasv outpatient new 45 minutesMickarma Richter MD Work Phone: [facility], Nose and ThroatComment on above:Benign paroxysmal vertigo of right ear (Primary Dx); Meniere's disease of right ear; Dizziness; Fullness in ear, bilateral; Sleep apnea treated with continuous positive airway pressure (CPAP)Start: 02-11-2025 End: 45-95-8196Qwkfkpjq SupportKettering Health Main Campus Ent Audio 1ProMedathens-limestone hospital Phys[facility] Ear, Nose and ThroatComment on above:Dizziness (Primary Dx); Fullness in ear, bilateral; Tinnitus of both earsStart: 02-10-2025 End: 41-12-8946boeflgwzkdAsyerg E Braun MD Work Phone: [facility] Work Phone: Start: 02-10-2025 End: 35-00-8873Ikybasf encounter procedureApril Ahumada MD-[facility] Work Phone: Start: 45-91-3147Gdi-patient / Non-visitCatherine Cuong FIERRO-[facility] Work Phone: Start: 02-06-2025 End: 67-10-0019Qskeutgds department patient visitApril Ahumada MD Work Phone: [phone]-Jlomnvend Room Work Phone: Start: 12-25-2024 End: 56-82-6752senolzsufkDofijt E Braun MD Work Phone: [facility] Work Phone: Start: 12-25-2024 End: 16-49-4057Dxdklcl encounter procedureApril Ahumada MD-[facility] Work Phone: Start: 32-94-1238foetythnlcZfbmyo E Braun [facility]: 49-32-3686Mrbwzxmzad Recurring Mendez Doherty MDSHRINERS HOSPITAL FOR CHILDREN CredibleStart: 10-16-2024 End: 41-08-1442wmpysrwyohEeeyzpctkSouthern [facility] Medical Center Work Phone: Start: 10-16-2024 End: 33-78-3024Ssanrxh encounter procedureUnc Health [facility] Physician GroupAccess [facility] [place] Work Phone: Start: 10-08-2024 End: 40-70-9840Wdmruc flowsheetLiam Waggoner MD Work Phone: noMS CI ENTStart: 10-08-2024 End: 29-54-8700Sjmjau Sneha Waggoner MD Work Phone: noms CI ENTStart: 10-08-2024 End: 20-92-8654tzgvicyfgjWKMQYJ H TIMMISNot AvailableStart: 10-08-2024 End: 27-01-1232Dqrqcl outpatient visit 25 minutesHidarcie Waggoner MD Work Phone: noms CI ENTComment on above:Active cochlear Meniere disease of right ear (Primary Dx)Start: 10-03-2024 End: 21-06-1037njmwcqazndImbiyyxsjSouthern Ohio Medical Center Work Phone: Start: 10-03-2024 End: 64-87-6923Gwuotkt encounter procedureHallie Physician GroupAccess Hospital [place] Work Phone: Start: 09-12-2024 End: 54-22-4546pnuccyhpfqJzculisfmSouthern [facility] Medical Center Work Phone: Start: 09-12-2024 End: 43-69-0949Fygpwxe encounter procedureUn[facility] Physician [facility] Work Phone: Start: 08-19-2024 End: 25-37-7292gcudedmnbhXjapsfqbiTwin City Hospital Work Phone: Start: 08-19-2024 End: 26-14-2084Athwykj encounter procedureUnc Health [facility]ician [facility] Work Phone: Start: 08-13-2024 End: 10-73-4856Wcoskz outpatient visit 25 minutesHidarcie Waggoner MD Work Phone: noms CI ENTComment on above:Peripheral vestibulopathy of right ear (Primary Dx); Migrainous dizziness; Active cochlear Meniere disease of right earStart: 08-13-2024 End: 08-89-6604wndltmqgbmDKREMF H TIMMISNot AvailableStart: 08-13-2024 End: 52-36-4194Kginqt flowsheetHidarcie Waggoner MD Work Phone: noms CI ENTStart: 08-13-2024 End: 67-60-5105Vtfqla flowsheetLiam Waggoner MD Work Phone: noms CI ENTStart: 07-30-2024 End: 81-43-6331Doxgwmrns encounterHidarcie Waggoner MD Work Phone: noms ENT NORWALKStart: 07-29-2024 End: 24-18-9747Kcpobqzv SupportLabrennen Heenairma TORRES Work Phone: [facility] - AudiologyComment on above:Dizziness and giddiness (Primary Dx)Start: 05-13-2024 End: 61-62-4855drjcmkgykvMuszhyumhTwin City Hospital Work Phone: Start: 05-13-2024 End: 13-14-7651Upjqasl encounter procedureUnc Health [facility] Physician [facility] Work Phone: Start: 04-16-2024 End: 85-90-9242Ewlhir Sneha Waggoner MD Work Phone: noMS CI ENTStart: 04-16-2024 End: 61-38-9746Fumfow Sneha Waggoner MD Work Phone: noMS CI ENTStart: 04-16-2024 End: 89-88-7715Xjzjxv outpatient new 45 minutesLiam Waggoner MD Work Phone: noMS CI ENTComment on above:Sensorineural hearing loss (SNHL) of right ear with unrestricted hearing of left ear (Primary Dx); Dizziness and giddiness; Migraine without status migrainosus, not intractable, unspecified migraine type ([facility]/HCC)Start: 04-01-2024 End: 57-09-1023cuvmjwvgbaTuvhdjghaSouthern Ohio Medical Center Work Phone: Start: 04-01-2024 End: 84-95-6210Icdlwxn encounter procedureUnc Health [facility] Physician [facility] Work Phone: Start: 02-21-2024 End: 08-64-9868Jlehax flowsheetMyriam Najera CCC-A Work Phone: noMS CI AUDStart: 02-21-2024 End: 66-22-6223Ecuduk flowsheetMyriam Clark Dania CCC-A Work Phone: NOMS CI AUDStart: 02-21-2024 End: 49-19-6109Vcjjgejq SupportDeamor Najera CCC-A Work Phone: noMS CI AUDComment on above:Sensorineural hearing loss (SNHL) of both ears (Primary Dx); VertigoStart: 01-03-2024 End: 33-35-8796eshtbzewoiCrcvobzbbSouthern Ohio Medical Center Work Phone: Start: 01-03-2024 End: 43-20-4289Sjyqrwl encounter procedureFirelands Physician Group-[facility] Work Phone: Start: 12-19-2023 End: 30-50-5118pnrdomyogbWlbbcqhwjTwin City Hospital Work Phone: Start: 12-19-2023 End: 98-97-9016Jvuzdsc encounter procedureFirelands Physician Group-[facility] Work Phone: Start: 12-11-2023 End: 00-01-0248obvajtvyaaTrjdpszueTwin City Hospital Work Phone: Start: 12-11-2023 End: 70-68-1299Qqzatdt encounter procedureFirelands Physician Group-[facility] Work Phone: Start: 12-05-2023 End: 49-69-2174rcomninrkuSmnrkxyevTwin City Hospital Work Phone: Start: 12-05-2023 End: 83-94-5388Umqtnja encounter procedureFirlas vegass Physician Group-[facility] Work Phone: Start: 11-02-2023 End: 18-98-4425kslbntrpioRdiojluvjTwin City Hospital Work Phone: Start: 11-02-2023 End: 76-79-5162Vskjflw encounter procedureFirelands Physician Group-[facility] Work Phone: Start: 58-98-0013Xml-patient / Non-visitFirlas vegass Physician Group-[facility] Professional ROLI Work Phone: Start: 06-20-2023 End: 16-10-6466uqhwhgmisoYtffrf Ede Other [employer] Other Start: 47-45-8154Eutbbvupj encounterMarjeannette AhumadaOhioHealth Southeastern Medical Centertart: 06-16-2023 End: 86-94-3584hjglhihpdoBhzpsy Ede Other [employer] Other Start: 87-15-7513Lmshep outpatient visit 15 minutes April [facility] ClinicStart: 06-15-2023 End: 20-53-6608zwtqnyeqpdGofnqv Ahumada Other [employer] Other Start: 25-42-0986Yksxfpqaj encounterApril Ramachandran Medical ClinicStart: 06-12-2023(Televisit) TelevisitApril [facility]ran Medical ClinicStart: 06-12-2023 End: 99-23-2568picwsksbprDuyost Ahumada Other [employer] Other Start: 06-05-2023 End: 36-05-7823hhkblqgrjhGbafyg Ede Other [employer] Other Start: 44-47-3503Hiiruetal encounterApril [facility]achandran Medical ClinicStart: 04-20-2023 End: 95-22-9265cdwbsjkynoRznmcaur Rohrbacher Other [employer] Other Start: 78-00-7603Pbewuo outpatient visit 15 minutes [facility]itte [facility] ClydeStart: 02-21-2023(PHYS) PhysicalApril [facility]ran Medical ClinicStart: 02-21-2023 End: 26-84-9550ebtmhqtiniLgwcmu Ede Other [employer] Other Start: 56-85-2176Gplkwypqt for general adult medical examination without abnormal findingsApril [facility]andran Medical ClinicStart: 79-92-6513Qfzgtwjpa encounterApril [facility]andran Medical ClinicStart: 71-63-8395Fnvcmo outpatient visit 15 minutesPeggy [facility] SouthStart: 09-06-2022 End: 83-08-9951eafigherqmJszucvqe [facility] Work Phone: [facility] Work Phone: Start: 09-06-2022 End: 90-86-8510Uqlfilp encounter procedureServices Family [facility] Work Phone: [facility]-Sleep Lab Work Phone: Start: 08-03-2022 End: 77-92-8277stwizzzdpkBgslwbl Jordy Other [employer] Other Start: 79-97-9156Hgojidlmr encounterDeSaint John Vianney Hospital ClinicStart: 06-26-2022 End: 46-29-9339Jautnqenn department patient visitServices [facility] Work Phone: [facility]-Emergency Room Work Phone: Start: 04-10-2022 End: 04-59-4442fpfzhumcaqAeptu Keller Other [employer] Other Start: 49-18-3358Emlkvf outpatient visit 25 minutes Nicole OmarRubén Urgent Care ClydeStart: 35-28-8154uolppcqccaOdzwyyjk:9090Start: 03-23-2022 End: 85-40-5329omrjghvhtmDgofgfxw Family [facility] Work Phone: [facility] Work Phone: Start: 03-23-2022 End: 37-48-3171Xutsqhk encounter procedureServices [facility] Work Phone: [facility]-Electrodiagnostics Start: 02-21-2022 End: 55-78-9146ocrwlhpyoeLlrv Fitt Other [employer] Other Start: 02-33-3630Dpanzzrpc encounterDawn [facility] Health System ClinicStart: 02-07-2022 End: 86-51-8187Eytbmbls ReferredServicVirginia Hospital Center Work Phone: [facility]-[place] [facility] ServicesStart: 02-07-2022 End: 53-48-5083fpcvwjqhcyBoflmkcdg Breault Other [employer] Other Start: 59-80-7913Yfelzc outpatient visit 5 minutes Dominique Ruth [facility] ClydeStart: 01-31-2022 End: 19-76-7317Rjvnpof encounter procedureServices [facility] Work Phone: [facility]-Lab Main CampusStart: 01-10-2022 End: 03-19-6519Pxidhibf ReferredSerNaval Medical Center Portsmouth Work Phone: [facility]-Corporate [facility] [address] Start: 07-02-2021 End: 61-74-3015iesuqhcugnECSOZZ ROSSFacility:T7Hyomi: 06-30-2021 End: 29-00-4696utqleaqpmiLSIIDK ROSSFacility:R0Zragd: 06-03-2021 End: 51-89-2940qrgtqkwthoVSGDER ROSSFacility:Z0Xelcx: 09-18-2020 End: 65-32-2786jrylorehetCO NONE LISTED REQUESTFacility:L4Gpeuc: 08-07-2020 End: 02-30-7831omkwfmvejfWWDYGI MOOREFacility:H1 Procedures DateProcedureProcedure DetailPerforming ClinicianStart: 68-73-8630Ptnqsbudxew David Christiana DO Work Phone: Start: 22-26-7533Mbcyfk-up visitFollow-upMICHAEL J DISHERStart: 70-00-5066Xasjm depression screening assessmentTrice Ramírez APRN-ANVIL WORKER Work Phone: Start: 79-79-7793Oxkatbqvrmv observation [Identifier] in Cervix by Cyto stainLisa Ramírez REWIND OPERATOR-ANVIL WORKER Work Phone: Start: 07-95-4928Ecdscwtfzo antibody IgA levelApril Ahumada MD Work Phone: Start: 13-54-0901Ahfsnk scan of lower limb veinsApril Ahumada MD Work Phone: Start: 90-83-6321Qpnnj chest X-rayApril Ahumada MD Work Phone: Start: 37-39-1681XRHFRUAR FUNCTION TESTSDeprovidence healthcon Clark [facility] Work Phone: start: 15-73-4105Qbwzh chest X-rayServices [facility] Work Phone: Start: 31-23-6000KCTE-CoV-2, Influenza & RSV (PCR) Services [facility] Work Phone: Plan of Treatment DateCare ActivityDetailAuthorStart: 35-58-3840TEkH,Tdap and Td Vaccines (2 - Td or Tdap)DTaP,Tdap and Td Vaccines (2 - Td or Tdap)[facility] SystemStart: 43-56-8544Xvxhjyyre for malignant neoplasm of cervixNOMS HealthcareStart: 40-78-4400Estfojotj for malignant neoplasm of cervixPap SmearShelby Memorial Hospital SystemStart: 67-69-3857Pfzggkgbi for malignant neoplasm of breastMammogramNOMS HealthcareStart: 12-10-8395Higef BMI ScreeningAdult BMI ScreeningShelby Memorial Hospital SystemStart: 61-89-8358Ulxig BMI Follow Up PlanAdult BMI Follow Up Plan [facility] SystemStart: 23-35-4648Izojs BMI ScreeningAdult BMI Screening [facility] SystemStart: 79-72-0126Rdwdttrjhe ScreeningDepression Screening [facility] SystemStart: 21-46-7601Tjqxevz ScreeningTobacco Screening [facility] SystemStart: 89-26-0445Euqpg BMI ScreeningAdult BMI Screening [facility] SystemStart: 03-43-4038Dhnigfp ScreeningTobacco Screening [facility] SystemStart: 06-16-2025 End: 48-82-4937Vzrooef encounter /22/2025 3:15 PM EST Office Visit [facility] [address] [place] [address] Argentina Richter MD [address] [facility] [address] [place], [id number] [facility] ThroatStart: 06-11-2025 End: 15-15-2122Shqrfdy encounter vuvxmrelf43/17/2025 1:30 PM EST Procedure Visit GABRIELA JACOB [address] [address] David Villeda, DO [address] [place] [address] [facility] [place] OBGYNStart: 05-07-2025 End: 28-80-7785Dmwkepc encounter relvoholj43/12/2025 11:20 AM EST Office Visit GABRIELA JACOB [address] [place] [address] David Villeda, DO [address] [place] [address] ArrivedNOMS Sun OBGYNComment on above:ArrivedStart: 04-16-2025 End: 07-77-8899Hondigl encounter procedureGreen Cross HospitalStart: 04-07-2025 End: 53-51-3580Xvhihax encounter tzbomtofo65/13/2025 2:15 PM EDT Office Visit [facility] [address] [place] [address] Argentina Richter MD [address] [facility] [address] [facility] [id number] [facility] ThroatStart: 42-81-0466Wjnbbeq [facility] Work Phone: Start: 03-27-2025 End: 84-18-2192OPJ Breast - bilateral screeningMammography screening bilateral with CAD Imaging Routine Encounter for screening mammogram for malignant neoplasm of breast Expected: 03/27/2025, Expires: 05/25/2026[facility] SystemComment on above:Expected: 03/27/2025, Expires: 05/25/2026Start: 03-27-2025 End: 41-72-1489VN Pelvis transabdominal and transvaginalUltrasound pelvic with transvaginal Imaging Routine Abnormal uterine bleeding Expected: 03/27/2025, Expires: 03/27/2026[facility] Work Phone: Comment on above:Expected: 03/27/2025, Expires: 03/27/2026Start: 38-16-6850WvikbruapLima Memorial Hospitaltart: 03-07-2025 [facility] Work Phone: Start: 03-07-2025 End: 80-14-2893Kwsjgwf encounter ljwvgbnua32/12/2025 10:45 AM EDT Appointment [facility] [address] [place] [address] [facility] ImagingStart: 32-58-9961ZTGFG-19 Vaccine ( season)COVID-19 Vaccine ( season)[facility] Greensborotart: 96-95-7103LevhyieyqStoneSprings Hospital CenterStart: 02-20-2025 End: 82-54-3424Bybdyzp encounter vvwvwgweq44/28/2025 7:[address] [facility] [address] [place] [address] Meniere's disease of right ear; DizzinessProHill Crest Behavioral Health Services - Total RehabComment on above:Meniere's disease of right ear; DizzinessStart: 02-11-2025 End: 57-63-5576TE Brain and Internal auditory canal WO and W contrast IVMR brain IAC with and without contrast Imaging Routine Meniere's disease of right ear Dizziness Expected: 02/11/2025, Expires: 02/11/2026[facility] Work Phone: Comment on above:Expected: 02/11/2025, Expires: 02/11/2026Start: 79-61-9665Pvrixff referralPar[facility] Work Phone: Start: 37-96-4856Eezcrv scan of lower limb veinsUS venous duplex LE RTLima Memorial Hospitaltart: 25-05-3548YJ Lower extremity vein - [facility] Andersontart: 56-48-3645Ipyrrdo [facility] Work Phone: Start: 33-77-4672Xnqyhno [facility] Work Phone: Start: 08-13-2024 End: 35-98-7790Geifzub encounter procedureNOMS CI ENTComment on above:Arrived Start: 05-08-2024 End: 53-31-0968Hmjpads encounter hywzcdffw08/13/2024 9:40 AM EST Office Visit [facility] [address] [place] [address] Jane Kc, [address] [place] [address] [facility] ROUTEStart: 36-55-7247Cmltwbbxy for malignant neoplasm of breastMammogramNOMS HealthcareStart: 04-16-2024 End: 98-15-7865Xobzfbf encounter bolapnxdd17/22/2024 11:30 AM EDT Office Visit [facility] [address] [facility] [address] [place] [address] Liam Waggoner MD [address] [place], [place] [address] ArrivedNOMS CI ENTComment on above:ArrivedStart: 02-28-2024 End: 01-83-8290Dqtjafz encounter hbtspiosi64/04/2024 8:40 AM EDT Office Visit [facility] [address] [place] [address] Liam Waggoner MD [address] [place] [address] [address] [place] [address] [facility] CI ENTStart: 67-98-8035HRLGP-19 Vaccine ( season)COVID-19 Vaccine ( season)[facility] SystemStart: 80-38-4352Ztwdxvfto vaccinationNOTX HealthcareStart: 05-36-3489Yjemusd [facility] Work Phone: Start: 63-69-6609Wrgpr BMI ScreeningAdult BMI ScreeningKindred Hospital - Greensborotart: 02-07-2022 End: 10-60-9482Dfjhhspl ReferredDeparted ReferredMadison HealthStart: 47-38-5104Hnjxbjhbh for malignant neoplasm of cervixNOTX HealthcareStart: 70-65-6238Utddifyul for malignant neoplasm of cervix Pap SmearNOTX HealthcareStart: 38-18-2645Elyby BMI Follow Up PlanAdult BMI Follow Up PlanShelby Memorial Hospital SystemStart: 44-67-8570Hyxyvfqpqd Screening Depression ScreeningKindred Hospital - Greensborotart: 29-39-2392Gvvuooi Screening Tobacco ScreeningNorwalk Memorial Hospital End: 89-13-0417ZAB panel - Blood by Automated countCBC without diff Lab Routine Abnormal uterine bleeding 1 Occurrences starting 03/27/2025 until 03/28/2026 [facility] SystemComment on above:1 Occurrences starting 03/27/2025 until 03/28/2026Endomysial antibody IgA levelPromedica Fostoria Community Hospital End: 83-44-0182Zwgsbslm [Mass/volume] in Serum or PlasmaFerritin Lab Routine Abnormal uterine bleeding 1 Occurrences starting 03/27/2025 until 03/27/2026 [facility] HospitalComment on above:1 Occurrences starting 03/27/2025 until 03/27/2026Gliadin peptide IgA Ab [Units/volume] in SerumPromedica Fostoria Community HospitalGliadin peptide IgG Ab [Units/volume] in SerumPromedica Fostoria Community HospitalIgA [Mass/volume] in Serum or PlasmaPromedica Fostoria Community Hospital End: 63-66-7265Tntc and TIBCIron and TIBC Lab Routine Abnormal uterine bleeding 1 Occurrences starting 03/27/2025 until 03/27/2026[facility] SystemComment on above:1 Occurrences starting 03/27/2025 until 03/27/2026MR Brain WO [facility] ShawMR Brain WO contrastPromedica Fostoria Community HospitalPatient [facility] Work Phone: Patient [facility] Work Phone: Thin Prep Pap TestThin Prep Pap Test Pathology and Cytology Routine Pap smear, as part of routine gynecological examination 03/27/2025 4:18 PM [facility] End: 77-28-0721Fiickyn profile includes TSH RP8Fxhplqt profile includes TSH FT4 Lab Routine Abnormal uterine bleeding 1 Occurrences starting 03/27/2025 until 03/27/2026ProTrinity Health System SystemComment on above:1 Occurrences starting 03/27/2025 until 03/27/2026Tissue transglutaminase IgA Ab [Units/volume] in [facility] Medical CenterTissue transglutaminase IgG Ab [Units/volume] in [facility] Immunizations Immunization DateImmunizationNotesCare SsvnjtylDszqpqff47-79-1864nzpknxqhn, injectable, quadrivalent, contains preservativeHilary Ian BETANCUR Work Phone: [facility] FultonUuypfbdqvm34-83-0714ygsqnozea virus vaccine, unspecified formulationKindred Hospital Bay Area-St. Petersburg Work Phone: [facility] FultonVdbcbobtmf56-21-8885sknklqujd, injectable, quadrivalent, contains preservativeLiam Waggoner MD Work Phone: [facility] FultonCdslkqnijl55-38-9676emtvhyr toxoid, reduced diphtheria toxoid, and acellular pertussis vaccine, adsorbedChicot Memorial Medical Center Work Phone: [facility]10-28-2020influenza, injectable, quadrivalent, preservative freeHilary Ian BETANCUR Work Phone: [facility] FultonTxedbcpalo11-18-3048uofgqopyq, injectable, quadrivalent, contains preservativeHilary Ian BETANCUR Work Phone: [facility] FultonFswvkplvtc47-42-3843qruoowqgs, injectable, quadrivalent, preservative freeHilary Ian BETANCUR Work Phone: [facility] FultonVspycxhrna76-26-1762Tlnhiumuo, injectable, Madin Mahi Canine Kidney, preservative free, quadrivalentHilary Ian BETANCUR Work Phone: [facility] FultonZtvogdmdwi66-96-9550tijxwrmff, injectable, quadrivalent, preservative freeHilary Ian BETANCUR Work Phone: [facility] Payers DatePayer CategoryPayerPolicy [id number] [id number]-eaz [id number] Health Insurance [id number] [employer]ALTH[employer] BENEFITS [id number] 2023-Present [phone] [address] [address] [place] [id number]17 [id number] Care Other (unspecified)[employer]EF[employer]/[place] [address] [id number] 2..7.083290.553519 [id number] 2..1.032151.3.579.2.78788-36-8066Svzbtte2603142 2..1.339922.3.579.2.78052-70-5534Rdblucj9590228 2..1.129652.3.579.2.70427-32-2146Phiqflh3809551 2..1.687119.3.579.2.33541-20-5725Fbdjmxi2489298 2..1.356073.3.579.[id number] 2..1.986444.3.579.2.67585-65-4622Tehldea571075318 2..1.802529.3.579.2.657438-16-0561Agwctoa856576873 2..1.502134.3.579.2.425420-61-6974Tqyiyze464349558 2..1.017120.3.579.2.107959-75-7202Mjlfdgt287031171 2.0.1.464021.3.579.2.399801-99-4112Fsdvgmr692722098 2..1.228283.3.579.2.542655-16-6408Nlbjnzx405423557 2..1.148819.3.579.2.037490-94-1233Bxynrjj575190444 2..1.694150.3.579.2.148091-58-7491Xvkebod062481541 2..1.263061.3.579.2.710085-71-8822Ikwrcpc685636336 2..1.526363.3.579.2.741138-19-2385Kjhrrno502698749 2..1.493074.3.579.2.299297-35-8822Wtacwxy461610751 2..1.050734.3.579.2.076012-49-8479Jaolkld54890296 2..1.958107.3.579.2.788028-09-7556Bceqepx0186862 2..1.604373.3.579.2.866413-03-5842Ypknauh3574147 2..1.541747.3.579.2.857790-99-7479Bzsllxf07511780192-45-1491Pfenlea [id number] 89av7i2w-2f00-37ef-7f2h-5b5v27u6u22bHmmdzzk [id number] w962m00o-0fw5-3vt9-f0c1-y61ffwv33y38Lxwzjpv8120819970 2..1.685363.08Oteygpu13996150 2..1.246569.3.579.2.267Wnjipuh40702435 2.16.840.1.125582.3.579.2.873Xnxjynb11049290 2.16.840.1.256952.3.579.2.531 Social History DateTypeDetailFacilityUnknown if ever smokedMercy Health Urbana Hospital Work Phone: Start: 02-07-2024 End: 35-86-6827Ayb Assigned At [facility] [employer] Other Start: 08-17-2021 End: 45-64-9013Krpddfx smoking status NHISNever smoked tobacco (finding) [facility] Hospitaltart: 80-87-9761Izb Assigned At [facility] Centertart: 02-06-2024 End: 37-01-1284Otnhdjw use and exposureSmokeless tobacco non-userNOMS Healthcare Start: 02-07-2024 End: 57-31-6144Ujvbqdymf beverage intakeEx-drinker (finding)[facility] Start: 02-07-2024 End: 33-11-1996Oufoynj of Social functionNOMS HealthcareStart: 29-76-4291Gqj assigned at birthNot on fileNOMS HealthcareStart: 01-28-2015 End: 56-19-6607FwsOrublz (finding)[facility] Hospitaltart: 03-22-2021 End: 71-13-9470Enbfjxfvu beverage intakeCurrent non-drinker of alcohol (finding) [facility] SystemStart: 07-70-8573EupkhoztzTuysbohXkbWbpdje Health System Start: 04-07-2025 End: 81-61-6204Wdufmkt smoking status NHISCurrent some day smokerWellington Regional Medical CenterNEGATED: Highlighted rowBethesda North Hospital Clinical Notes 02-10-2021 to 05-07-2025 Note Date & FpneBhcnXacyvqqi72-65-6279 History of Present illness Narrative* Deysi Mercado LPN - 05/07/2025 11:20 AM EST Reason for Appointment: Patient ID: Nati Santos is a 40 y.o. female who presents for Menorrhagia Patient presents today for Acute Visit. and Consult appointment. MEDICATIONS Current Outpatient Medications Medication Instructions aspirin 81 mg, Daily RT atorvastatin (LIPITOR) 40 mg, Daily furosemide (LASIX) 40 mg, Daily meclizine (ANTIVERT) 25 mg, 2 times daily PRN metFORMIN (GLUCOPHAGE) 1,000 mg, 2 times daily with meals metoprolol tartrate (LOPRESSOR) 50 mg, 2 times daily potassium chloride CR (Klor-Con) 10 MEQ ER tablet 10 mEq, 3 times daily sertraline (ZOLOFT) 100 mg, Daily SUMAtriptan (Imitrex) 50 MG tablet venlafaxine XR (EFFEXOR XR) 75 mg, Daily ALLERGIES Allergies Allergen Reactions Sulfamethoxazole-Trimethoprim Anaphylaxis Other Reaction(s): Unknown Sulfamethoxazole Other Reaction(s): Swelling of Lip/Tongue/Throat, tongue swelling Trimethoprim Other Reaction(s): Swelling of Lip/Tongue/Throat, tongue swelling Penicillins Rash Other Reaction(s): Unknown PROBLEMS Active Ambulatory Problems Diagnosis Date Noted Abdominal pain 02/26/2017 Flank pain 02/06/2024 Acute lumbar myofascial strain 02/06/2024 Anemia 02/06/2024 BPV (benign positional vertigo) 02/06/2024 Bronchitis 02/06/2024 Glaucoma 02/06/2024 Headache 02/06/2024 Irregular menses 02/06/2024 Vertigo 02/06/2024 Type 2 diabetes mellitus (HCC) 02/06/2024 BRANDON (obstructive sleep apnea) 02/06/2024 Hypertension 02/06/2024 KAE (generalized anxiety disorder) 02/06/2024 Ovarian cyst 04/04/2024 Resolved Ambulatory Problems Diagnosis Date Noted Cat scratch 02/06/2024 Gastroenteritis 02/06/2024 Nausea 02/06/2024 Past Medical History: Diagnosis Date Anxiety Depression Diabetes 1.5, managed as type 2 (HCC) Dizziness HISTORY PAST MEDICAL HISTORY SOCIAL HISTORY Past Medical History: Diagnosis Date Anxiety Cat scratch 02/06/2024 Depression Diabetes 1.5, managed as type 2 (HCC) Dizziness Hypertension Nausea 02/06/2024 Social History Tobacco Use Smoking status: Never Smokeless tobacco: Never Substance Use Topics Alcohol use: Not Currently Drug use: Not Currently FAMILY HISTORY Family History Problem Relation Name Age of Onset Cancer Mother Hypertension Father Heart failure Father Thyroid disease Sister SURGICAL HISTORY Past Surgical History: Procedure Laterality Date CARPAL TUNNEL RELEASE REVIEW OF SYSTEMS Review of Systems: Review of Systems Constitutional: Negative. HENT: Negative. Eyes: Negative. Respiratory: Negative. Cardiovascular: Negative. Gastrointestinal: Negative. Genitourinary: Positive for menstrual problem. Musculoskeletal: Negative. Skin: Negative. Neurological: Negative. All other systems reviewed and are negative. Hematological: Negative. Endocrine: Negative. Allergic/Immunologic: Negative. OBJECTIVE Objective: Physical Exam Constitutional: Appearance: Normal appearance. She is well-developed. Cardiovascular: Rate and Rhythm: Normal rate and regular rhythm. Pulmonary: Effort: Pulmonary effort is normal. Breath sounds: Normal breath sounds. Abdominal: General: Bowel sounds are normal. There is no distension. Palpations: Abdomen is soft. Tenderness: There is no abdominal tenderness. There is no guarding or rebound. Musculoskeletal: General: No swelling. Normal range of motion. Right lower leg: No edema. Left lower leg: No edema. Neurological: Mental Status: She is alert and oriented to person, place, and time. Skin: General: Skin is warm and dry. Psychiatric: Mood and Affect: Mood normal. Behavior: Behavior normal. Vitals and nursing note reviewed. 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 Vitals: Estimated body mass index is 58.72 kg/m as calculated from the following: Height as of this encounter: 5' 6 . Weight as of this encounter: 363 lb 12.8 oz. BP: 110/70 No LMP recorded (within months). Assessment/Plan ICD-10-CM 1. Menorrhagia with regular cycle N92.0 Assessment/Plan Pt is a referral from Dr Dodge. Pt is anemic, reviewed ultrasound with pt in detail. Pt states sheis having heavy bleeding. Fibroid noted on ultrasound. Discussed all options with pt in detail. Endometrial ablation, IUD. Pt declines IUD. Discussed hysterectomy for future. Pt to be scheduled for endometrial ablation. Pt states she will use condoms in the future. Pt to return for embx/preop exam. Documented by Deysi Mercado LPN on behalf of: David Villeda DO documented in this encounterFulton [facility]- [id number] History of Present illness Narrative* Argentina Richter MD - 04/07/2025 2:15 PM EDT Patient ID: Nati Santos is a 39 y.o. female. Chief Complaint: Chief Complaint Patient presents with Follow-up History: Nati Santos is a pleasant 39 y.o. female who presents today for review of MRI. She was last seen on 02/11/2025. Patient reports that she has not been able to work for about 2 months due to her symptoms. She notes a history of anemia. Past History: The following portions of the patient's history were reviewed and updated as appropriate: MEDICATIONS Current Outpatient Medications: aspirin 81 mg chewable tablet, Chew 1 tablet (81 mg total) and swallow in the morning., Disp: , Rfl: atorvastatin (LIPITOR) 40 mg tablet, Take 1 tablet (40 mg total) by mouth., Disp: , Rfl: busPIRone (BUSPAR) 5 mg tablet, Take 1 tablet (5 mg total) by mouth., Disp: , Rfl: furosemide (LASIX) 20 mg tablet, Take 1 tablet (20 mg total) by mouth 2 (two) times a day., Disp: ,Rfl: metFORMIN (GLUCOPHAGE) 500 mg tablet, Take 1 tablet (500 mg total) by mouth in the morning and 1 tablet (500 mg total) before bedtime., Disp: , Rfl: metoprolol tartrate (LOPRESSOR) 50 mg tablet, Take 1 tablet (50 mg total) by mouth in the morning and 1 tablet (50 mg total) before bedtime., Disp: , Rfl: olmesartan-hydroCHLOROthiazide (BENICAR HCT) 20-12.5 mg per tablet, Take 1 tablet by mouth., Disp: , Rfl: potassium chloride (K-TAB,KLOR-CON) 10 MEQ CR tablet, Take 1 tablet (10 mEq total) by mouth in the morning and 1 tablet (10 mEq total) at noon and 1 tablet (10 mEq total) in the evening. Take with meals., Disp: , Rfl: sertraline (ZOLOFT) 100 mg tablet, , Disp: , Rfl: topiramate (TOPAMAX) 25 mg tablet, One PO qhs for 1-2 weeks then Increase BIID for another 1-2 weekd then TID for one to two week then 2 tablets BID, Disp: 70 tablet, Rfl: 12 ALLERGIES Bactrim [sulfamethoxazole-trimethoprim], Sulfa (sulfonamide antibiotics), Trimethoprim, and Penicillins PAST MEDICAL HISTORY Past Medical History: Diagnosis Date Anxiety Hypertension Sleep apnea PAST SURGICAL HISTORY Past Surgical History: Procedure Laterality Date CARPAL TUNNEL RELEASE SOCIAL HISTORY Social History Tobacco Use Smoking status: Never Smokeless tobacco: Never Substance Use Topics Alcohol use: No Drug use: No FAMILY HISTORY Family History Problem Relation Age of Onset Breast cancer Neg Hx Colon cancer Neg Hx Ovarian cancer Neg Hx Uterine cancer Neg Hx Prostate cancer Neg Hx REVIEW OF SYSTEMS Review of Systems Constitutional: Negative for fever and chills. HENT: Positive for ear pain (both) and tinnitus (both). Negative for ear discharge. Eyes: Negative for redness. Respiratory: Negative for cough. Gastrointestinal: Negative for nausea and vomiting. Endocrine: Negative for heat intolerance. Musculoskeletal: Negative for gait problem. Allergic/Immunologic: Negative for food allergies. Neurological: Positive for dizziness and headaches. Hematological: Does not bruise/bleed easily. Data Review: MRI brain IAC 03/07/2025: HISTORY: A 39-year-old female with a history of the dizziness and vertigo. Meniere's disease of theright ear. TECHNIQUE: Multiplanar and multisequence MRI examination of the brain and internal auditory canals is performed without and with intravenous contrast administration. COMPARISON: Comparison is made with prior MRI examination of the brain of 01/01/2024. FINDINGS: Images through the temporal regions demonstrate normal and symmetrical internal auditory canals. The cranial nerves VII and VIII are normal and symmetrical bilaterally. There is no evidenceof abnormal enhancing lesion to suggest acoustic neuroma or mass. No evidence of abnormal enhancement in the inner ears. The cerebellopontine angles are clear. The cochleae and semicircularcanals are unremarkable. The mastoid air cells are clear. Both Meckel's caves are normal. Both trigeminal nerves are normal intracranially. The ventricular system is normal in size and configuration. There is normal differentiation of grayand white matter.There is no evidence of restricted diffusion to suggest acute or subacute age of infarction. There is no evidence of intracranial mass, hemorrhage or acute pathology. The cerebellum and brainstem are unremarkable. No evidence of mass effect, midline shift of the structures or extra-axial fluid collections. Postcontrast examination reveals no abnormal meningeal or parenchymal enhancement. Both distal internal carotid and vertebrobasilar arteries are patent. Dural venous sinuses are patent. Both jugular and sigmoid sinuses are symmetrical. Paranasal sinuses are clear. IMPRESSION: 1. Cranial nerves VII and VIII are normal and symmetrical. The internal auditory canals are normal. 2. No evidence of acoustic neuroma or mass lesion in the cerebellopontine angles. 3. Cochleae and semicircular canals are unremarkable. 4. No evidence of intracranial mass, abnormal enhancing lesion or acute pathology. 5. Paranasal sinuses and mastoid air cells are clear. Physicial Exam: Temp 36.8 C (98.2 F) Ht 167.6 cm (5' 6 ) Wt (!) 165.5 kg (364 lb 12.8 oz) LMP 01/25/2025 (Approximate) BMI 58.88 kg/m Constitution: Patient appears healthy, alert, oriented, with their usual voice, communication, and affect Head and Face: Normocephalic and Atraumatic. Facial nerve function normal Eyes: No Strabismus and EOM normal Ear: external ear normal, canal normal, and TM normal without fluid or infection Nose and Nasal Cavity: The external appearance, nasal mucosa, septum, and turbinates are unremarkable without drainage or lesion Oral Cavity: The lips, gums and teeth are unremarkable without mass or lesion. Neck: No asymmetry or mass, thyroid normal, no lymphadenopathy. Salivary glands normal. Cranial Nerves: Cranial nerves intact Procedure: None Assessment Impression: Vestibular migraine versus vestibular neuronitis Clear MRI Plan: - MRI reviewed in office today from 03/16/2025 which was unremarkable. - Start topamax as prescribed. - Follow up in 1-2 months. Visit Diagnosis and Orders: Nati was seen today for follow-up. Diagnoses and all orders for this visit: Benign paroxysmal vertigo of right ear Meniere's disease of right ear Dizziness Fullness in ear, bilateral Other orders - topiramate (TOPAMAX) 25 mg tablet; One PO qhs for 1-2 weeks then Increase BIID for another 1-2 weekd then TID for one to two week then 2 tablets BID Scribe Statement: Scribed for and in the presence of ARGENTINA RICHTER MD by Lavinia Washington. Provider Statement: I ARGENTINA RICHTER MD personally performed the services described in the documentation, as scribed in my presence and it is both accurate and complete. documented in this [facility]10-13-2025 Instructions* Patient Instructions* Lavinia Washington - 04/07/2025 2:15 PM EDT - MRI reviewed in office today from 03/16/2025 which was unremarkable. - Start topamax as prescribed. - Follow up in 1-2 months. documented in [facility] Hospital Discharge instructionsAmbulatory Orders* Referral to Cardiology Time Frame: 04/03/25, Location: None [facility] Work Phone: 1(969) 521-600910-02-2025 History of Present illness Narrative* Trice Ramírez APRN-KEITH - 03/27/2025 3:30 PM EDT Annual Well Woman Visit 03/27/2025 Subjective Nati Santos is a pleasant 39 y.o. 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 Periods are irregular, lasting several days. Dysmenorrhea: severe, occurring first 1-2 days of flow. Cyclic symptoms include heavy bleeding, clots,cramping and moodiness. Denies abnormal discharge. Denies pelvic pain. Patient declines STD testing today. She is seeing oncology / hematology in [place] for chronic anemia and they think it is related to patient's frequent / heavy periods. She has not had a pelvic ultrasound. Complaints today: patient is experiencing irregular menses. Relationship status: The patient reports that there is not domestic violence in her life. 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 LMP 01/25/2025 OB History 1 Para 1 Term 1 AB Living SAB IAB Ectopic Multiple Live Births The following portions of the patient's history were reviewed and updated as appropriate: allergies, current medications, past family history, past medical history, past social history, past surgicalhistory and problem list. MEDICAL HX Past Medical History: Diagnosis Date Anxiety Hypertension Sleep apnea SURGICAL HX Past Surgical History: Procedure Laterality Date CARPAL TUNNEL RELEASE FAMILY HX Family History Problem Relation Age of Onset Breast cancer Neg Hx Colon cancer Neg Hx Ovarian cancer Neg Hx Uterine cancer Neg Hx Prostate cancer Neg Hx MEDS Current Outpatient Medications Medication Sig Dispense Refill aspirin 81 mg chewable tablet Chew 1 tablet (81 mg total) and swallow in the morning. atorvastatin (LIPITOR) 40 mg tablet Take 1 tablet (40 mg total) by mouth. busPIRone (BUSPAR) 5 mg tablet Take 1 tablet (5 mg total) by mouth. furosemide (LASIX) 20 mg tablet Take 1 tablet (20 mg total) by mouth 2 (two) times a day. metFORMIN (GLUCOPHAGE) 500 mg tablet Take 1 tablet (500 mg total) by mouth in the morning and 1 tablet (500 mg total) before bedtime. metoprolol tartrate (LOPRESSOR) 50 mg tablet Take 1 tablet (50 mg total) by mouth in the morning and 1 tablet (50 mg total) before bedtime. olmesartan-hydroCHLOROthiazide (BENICAR HCT) 20-12.5 mg per tablet Take 1 tablet by mouth. potassium chloride (K-TAB,KLOR-CON) 10 MEQ CR tablet Take 1 tablet (10 mEq total) by mouth in the morning and 1 tablet (10 mEq total) at noon and 1 tablet (10 mEq total) in the evening. Take with meals. sertraline (ZOLOFT) 100 mg tablet No current facility-administered medications for this visit. ALLERGIES Allergies Allergen Reactions Bactrim [Sulfamethoxazole-Trimethoprim] Anaphylaxis Sulfa (Sulfonamide Antibiotics) Anaphylaxis Other Reaction(s): Swelling of Lip/Tongue/Throat, tongue swelling Trimethoprim Other Reaction(s): Swelling of Lip/Tongue/Throat, tongue swelling Penicillins Rash Review of Systems Review of Systems Objective BP 160/72 Ht 167.6 cm (5' 6 ) Wt (!) 164 kg (361 lb 9.6 oz) LMP 01/25/2025 (Approximate) BMI 58.36 kg/m Physical Exam Assessment/Plan: Nati was seen today for gynecologic exam. Diagnoses and all orders for this visit: Well woman exam with routine gynecological exam Pap smear, as part of routine gynecological examination - Thin Prep Pap Test Standardized adult depression screening tool completed Abnormal uterine bleeding - Ultrasound pelvic with transvaginal; Future - Thyroid profile includes TSH FT4; Future - CBC without diff; Future - Ferritin; Future - Iron and TIBC; Future Encounter for screening mammogram for malignant neoplasm of breast - Mammography screening bilateral with CAD; Future Discussed options to help with periods. Patient does not want control. Discussed surgical options: ablation vs hysterectomy. Will await labs and ultrasound. BMI is above average; Discussed eating tips for weight loss and and exercise steps. Recommend breast self-awareness. Notify provider for any breast changes or concerns Discussed healthy lifestyle modifications. Educational material distributed. 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 Follow up as needed. Await pap. Discussed ASCCP screening guidelines. Discussed taking a multivitamin. Discussed Calcium and Vitamin D for prevention of osteoporosis. HPV vaccine is recommended between 9-45 yo. Can be received at [facility] or the [facility]. Discussed need for yearly mammogram after 40 yo. Discussed colon cancer screening recommendations to begin at 45 yo, patient to discuss with PCP. All questions answered. MARKOS Avendaño APRN-CNP Lisa M Krotzer, APRN-CNP 03/27/25 1624 documented in this encounterAkron Children's HospitalHuJe labs [id number] Hospital Discharge instructionsAmbulatory Orders* Referral to Gastroenterology Time Frame: 03/07/25, Location: None [facility] Work Phone: 1(791) 442-879008-26-2025 Miscellaneous Notes* Telephone Encounter - Regla Le - 02/18/2025 2:12 PM EDT Patient called 02/18/25, she is requesting valium for her MR scan, she is scheduled 03/07/25. Patienthas been off work since she saw Dr Richter on 02/11/25 due to dizziness and not feeling well. Please advise patient. * Telephone Encounter - Brigitte Turcios CNA - 02/18/2025 2:12 PM EDT Patient called 02/18/25, she is requesting valium for her MR scan, she is scheduled 03/07/25. Patienthas been off work since she saw Dr Richter on 02/11/25 due to dizziness and not feeling well. Please advise patient. Called and spoke to Nati and let her know to reach out to us closer to her date for the valium, also asked if she needed a doctors note for work and she stated that she was going to reach out to her PCP because the dizziness was a hit or miss and she didn't know when she would get dizzy. She stated that she would reach back out to us if she needed anything else. documented [facility] Telephone encounter Note* Telephone Encounter - Regla Le - 02/18/2025 2:12 PM EDT Patient called 02/18/25, she is requesting valium for her MR scan, she is scheduled 03/07/25. Patienthas been off work since she saw Dr Richter on 02/11/25 due to dizziness and not feeling well. Please advise patient. [facility]08-26-[facility] Telephone encounter Note* Telephone Encounter - Brigitte Turcios CNA - 02/18/2025 2:12 PM EDT Patient called 02/18/25, she is requesting valium for her MR scan, she is scheduled 03/07/25. Patienthas been off work since she saw Dr Richter on 02/11/25 due to dizziness and not feeling well. Please advise patient. Called and spoke to Nati and let her know to reach out to us closer to her date for the valium, also asked if she needed a doctors note for work and she stated that she was going to reach out to her PCP because the dizziness was a hit or miss and she didn't know when she would get dizzy. She stated that she would reach back out to us if she needed anything else. [facility] [id number] History of Present illness Narrative* Argentina Richter MD - 02/11/2025 3:00 PM EDT Images from the original note were not included. Patient ID: Nati Santos is a 39 y.o. female. Chief Complaint: Chief Complaint Patient presents with Meniere's Dizziness History: Nati Santos is a pleasant 39 y.o. female who presents today for initial consultation regardingmeniere's disease and BPPV, both of the right ear. She was referred by her PCP, . She underwent an audiogram prior to today's visit. 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 She notes when her meniere's was first diagnosed, 1 year ago, she was having dizziness spells daily. The dizziness improved after taking Buspirone medication. However, in the past week, her dizzinesshas returned with exacerbation. It is described as imbalance. She notes mild ear ringing and constant bilateral ear/head fullness with the dizziness. The dizziness is no longer coming in spells, as it has not stopped. She notes a twinge of left ear pain today. She has a history of occasional headaches. She denies otorrhea, frequent ear infections, and changes in her hearing. She has a history of sleep apnea treated by CPAP. 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 She denies a familial history of similar concerns. Past History: The following portions of the patient's history were reviewed and updated as appropriate: MEDICATIONS Current Outpatient Medications: busPIRone (BUSPAR) 5 mg tablet, Take 1 tablet (5 mg total) by mouth., Disp: , Rfl: furosemide (LASIX) 20 mg tablet, Take 1 tablet (20 mg total) by mouth 2 (two) times a day., Disp: ,Rfl: metFORMIN (GLUCOPHAGE) 500 mg tablet, Take 1 tablet (500 mg total) by mouth in the morning and 1 tablet (500 mg total) before bedtime., Disp: , Rfl: metoprolol tartrate (LOPRESSOR) 50 mg tablet, Take 1 tablet (50 mg total) by mouth in the morning and 1 tablet (50 mg total) before bedtime., Disp: , Rfl: olmesartan-hydroCHLOROthiazide (BENICAR HCT) 20-12.5 mg per tablet, Take 1 tablet by mouth., Disp: , Rfl: potassium chloride (K-TAB,KLOR-CON) 10 MEQ CR tablet, Take 1 tablet (10 mEq total) by mouth in the morning and 1 tablet (10 mEq total) at noon and 1 tablet (10 mEq total) in the evening. Take with meals., Disp: , Rfl: sertraline (ZOLOFT) 100 mg tablet, , Disp: , Rfl: amLODIPine (NORVASC) 10 mg tablet, Take 10 mg by mouth daily. (Patient not taking: Reported on 02/11/2025), Disp: , Rfl: aspirin 81 mg chewable tablet, Chew 81 mg and swallow daily. (Patient not taking: Reported on 02/11/2025), Disp: , Rfl: bupropion HCl (WELLBUTRIN ORAL), Take by mouth. (Patient not taking: Reported on 02/11/2025), Disp: , Rfl: escitalopram (LEXAPRO) 20 mg tablet, Take 20 mg by mouth daily. (Patient not taking: Reported on 02/11/2025), Disp: , Rfl: ALLERGIES Bactrim [sulfamethoxazole-trimethoprim] and Penicillins PAST MEDICAL HISTORY Past Medical History: Diagnosis Date Anxiety Hypertension Sleep apnea PAST SURGICAL HISTORY Past Surgical History: Procedure Laterality Date CARPAL TUNNEL RELEASE SOCIAL HISTORY Social History Tobacco Use Smoking status: Never Smokeless tobacco: Never Substance Use Topics Alcohol use: No Drug use: No FAMILY HISTORY No family history on file. REVIEW OF SYSTEMS Review of Systems Constitutional: Negative for fever. HENT: Positive for tinnitus. Negative for ear discharge and ear pain. Eyes: Negative for redness. Gastrointestinal: Negative for vomiting. Skin: Negative for rash. Neurological: Positive for dizziness. Negative for headaches. Psychiatric/Behavioral: Negative for confusion. Data Review: Audiogram performed prior to today's evaluation: Physicial Exam: Ht 167.6 cm (5' 6 ) Wt (!) 165.6 kg (365 lb) BMI 58.91 kg/m Constitution: Patient appears healthy, alert, oriented, with their usual voice, communication, and affect Head and Face: Normocephalic and Atraumatic. Facial nerve function normal Eyes: No Strabismus and EOM normal Ear: external ear normal, canal normal, and TM normal without fluid or infection Nose and Nasal Cavity: The external appearance, nasal mucosa, septum, and turbinates are unremarkable without drainage or lesion Oral Cavity: The lips, gums and teeth are unremarkable without mass or lesion. Neck: No asymmetry or mass, thyroid normal, no lymphadenopathy. Salivary glands normal. Cranial Nerves: Cranial nerves intact Procedure: None Assessment Impression: Dizziness - referral to [place] and MRI of the brain ordered. Headaches - management provided, discuss preventative medication w neurology. Plan: - Results from audiogram completed prior to today's visit were reviewed, it indicated essentially normal to borderline normal hearing 250-8000Hz bilaterally. - She had a VNG performed on 07/30/2024 which I reviewed and discussed with her. - Otoscopic examination was completed in office today. Her ears appear grossly healthy at this time. - I suspect that one potential cause of her condition could be headaches. Headache management provided below. Triggers Identify and control the triggers that most commonly occur within 6-8 hours of the onset of symptoms. Stress Poor sleep Diet (caffeine, tyramine, glutamate, histamine, dehydration, hunger) Hormonal changes Overstimulation Low Atmospheric Pressure Noise Hunger Limit These Foods - Chips (glutamate) - Processed meat (tyramine) - Nuts (histamine) - Frozen or fast foods (glutamate) - Soy sauce (tyramine and glutamate) Lifestyle Changes Eat a Regular Diet. Don t overeat or undereat. Eat healthy, clean foods Get Regular Sleep on a Regular Schedule. Don t oversleep or undersleep Get Regular Exercise or Activity Regulate your Stress, avoid large fluctuations in stress Avoid Caffeine, Wine, Beer Drink at least 2 Liters of Water a day Treat Obstructive Sleep Apnea (BRANDON) or Snoring Supplements The following supplements can be used to prevent headaches. Try these first Magnesium B Vitamins Vitamin D Magnesium 200mg-1200mg Daily (common 400mg- 600mg). Up to 400mg Twice Daily Higher doses are more effective. Major side effect - diarrhea. Can lower blood pressure and interact with some heart medications, diuretics, antibiotics, and muscle relaxants. Magtein, Magnesium Glycinate, Magnesium Threonate, or Magnesium Oxide Melatonin 2mg-10mg at bedtime. Can reduce the effectiveness of certain medications (blood pressure drugs, antidepressants, and control drugs) and increase blood sugar levels. [id number] 5000mcgSublingual(underthetongue)daily Vitamin B2 (Riboflavin) 200mg Twice Daily to 400mg-500mg Daily. Will turn urine bright yellow. Can interact with anticholinergics, phenobarbital and probenecid. Found in milk, meat, eggs, nuts, enriched flour, and green vegetables. CoEnzyme Q10 150mg Daily. Side effects: Stomach upset, rash, poor sleep, headache, dizziness. May interact with medications such as blood pressure, blood thinners, cholesterol medicines, and tricyclic antidepressants. Avoid during and . Vitamin D 2000mg Daily Butterbur 50-75mg twice daily. Use only PA-free butterbur to reduce risk of liver toxicity. Avoid in children, , or . Avoid in kidney, heart, or liver disease. Feverfew Extract 50mg-80mg daily. Side effects: abdominal pain, diarrhea mouth ulcers, nausea, vomiting. Avoid during or combining with aspirin. Must taper off. 5-HTP (HydrLoxytryptophan) [id number] daily. Avoid in , liver or kidney disease. Interactions with medications such as carbidopa , triptans, barbiturates, chemotherapy drugs, antibiotics, tramadol. - I would also like her to continue following with neurology for evaluation of headaches. A preventative medication may be beneficial. - I will order an MRI of the brain w [facility] to further evaluate any abnormal pathology that could be causing her symptoms. - I will also refer her to vestibular therapy for dizziness today. - If symptoms worsen or new symptoms onset, I would like the patient to call the office sooner for re-evaluation. Otherwise she is able to follow up with me after her MRI has been completed. Visit Diagnosis and Orders: Nati was seen today for meniere's and dizziness. Diagnoses and all orders for this visit: Benign paroxysmal vertigo of right ear - [facility] - [place], [place] Meniere's disease of right ear - [facility] - [place], [place] - Ambulatory referral to Vestibular Rehab; Future - MR brain IAC with and without contrast; Future Dizziness - Ambulatory referral to Vestibular Rehab; Future - MR brain IAC with and without contrast; Future Fullness in ear, bilateral Sleep apnea treated with continuous positive airway pressure (CPAP) Scribe Statement: I, Milind Alvarado, scribed for and in the presence of ARGENTINA RICHTER MD who performed the above service.Provider Statement: I ARGENTINA RICHTER MD personally performed the services described in the documentation, as scribed in my presence and it is both accurate and complete. documented in this encounterAkron Children's [email or web address] [facility] [id number] Instructions* Patient Instructions* Milind Alvarado - 02/11/2025 3:00 PM EDT - Results from audiogram completed prior to today's visit were reviewed, it indicated essentially normal to borderline normal hearing 250-8000Hz bilaterally. - She had a VNG performed on 07/30/2024 which I reviewed and discussed with her. - Otoscopic examination was completed in office today. Her ears appear grossly healthy at this time. - I suspect that one potential cause of her condition could be headaches. Headache management provided below. Triggers Identify and control the triggers that most commonly occur within 6-8 hours of the onset of symptoms. Stress Poor sleep Diet (caffeine, tyramine, glutamate, histamine, dehydration, hunger) Hormonal changes Overstimulation Low Atmospheric Pressure Noise Hunger Limit These Foods - Chips (glutamate) - Processed meat (tyramine) - Nuts (histamine) - Frozen or fast foods (glutamate) - Soy sauce (tyramine and glutamate) Lifestyle Changes Eat a Regular Diet. Don t overeat or undereat. Eat healthy, clean foods Get Regular Sleep on a Regular Schedule. Don t oversleep or undersleep Get Regular Exercise or Activity Regulate your Stress, avoid large fluctuations in stress Avoid Caffeine, Wine, Beer Drink at least 2 Liters of Water a day Treat Obstructive Sleep Apnea (BRANDON) or Snoring Supplements The following supplements can be used to prevent headaches. Try these first Magnesium B Vitamins Vitamin D Magnesium 200mg-1200mg Daily (common 400mg- 600mg). Up to 400mg Twice Daily Higher doses are more effective. Major side effect - diarrhea. Can lower blood pressure and interact with some heart medications, diuretics, antibiotics, and muscle relaxants. Magtein, Magnesium Glycinate, Magnesium Threonate, or Magnesium Oxide Melatonin 2mg-10mg at bedtime. Can reduce the effectiveness of certain medications (blood pressure drugs, antidepressants, and control drugs) and increase blood sugar levels. [id number] 5000mcgSublingual(underthetongue)daily Vitamin B2 (Riboflavin) 200mg Twice Daily to 400mg-500mg Daily. Will turn urine bright yellow. Can interact with anticholinergics, phenobarbital and probenecid. Found in milk, meat, eggs, nuts, enriched flour, and green vegetables. CoEnzyme Q10 150mg Daily. Side effects: Stomach upset, rash, poor sleep, headache, dizziness. May interact with medications such as blood pressure, blood thinners, cholesterol medicines, and tricyclic antidepressants. Avoid during and . Vitamin D 2000mg Daily Butterbur 50-75mg twice daily. Use only PA-free butterbur to reduce risk of liver toxicity. Avoid in children, , or . Avoid in kidney, heart, or liver disease. Feverfew Extract 50mg-80mg daily. Side effects: abdominal pain, diarrhea mouth ulcers, nausea, vomiting. Avoid during or combining with aspirin. Must taper off. 5-HTP (HydrLoxytryptophan) [id number] daily. Avoid in , liver or kidney disease. Interactions with medications such as carbidopa , triptans, barbiturates, chemotherapy drugs, antibiotics, tramadol. - I would also like her to continue following with neurology for evaluation of headaches. A preventative medication may be beneficial. - I will order an MRI of the brain w [facility] to further evaluate any abnormal pathology that could be causing her symptoms. - I will also refer her to vestibular therapy for dizziness today. - If symptoms worsen or new symptoms onset, I would like the patient to call the office sooner for re-evaluation. Otherwise she is able to follow up with me after her MRI has been completed. documented in this encounterNorwalk [facility]08-19-2025 History of Present illness Narrative* BRIAN Garrido - 02/11/2025 2:30 PM EDT AUDIOLOGIC EVALUATION Reason for visit: CC: Patient has a history of Meni re's Disease in her right ear that was diagnosed by a previous ENT. She notes when her symptoms first began, she was having dizziness daily. The dizziness improved after taking bupropion medication. However, for the past week, she feels her dizziness is getting worse again. She notes a left ear pain today. She notes fullness/pressure in her head. She notes tinnitus that is very mild. She denies otorrhea and changes in hearing. 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 Argentina Richter Retest hearing should she note changes in her audiologic symptoms Blas Garrido, [facility]-A Manager Human Resources documented in this encounterNorwalk Memorial Hospital08-18-2025 Evaluation note* Diagnosis Onset Date Resolution Status Admit Date Anemia acuteAugust 2024 9:43amActive cochlear Meniere disease of right earacute February 20, 2025 9:03amHypertensionacuteAugust 2024 9:03amOSA on CPAP acuteAugust 2024 9:03amType II diabetes mellitusacuteAugust 2024 9:03amBMI 50.0-59.9, adultnoneactiveAugust 2024 9:03amBPV (benign positional vertigo)acuteSept2024 2:16pmMenieres diseaseacuteSept2024 2:16pmMorbid obesity with body mass index (BMI) of 50.0 to 59.9 in adultacuteSept2024 2:16pmAnemiaacuteSept2024 1:44pmBPV (benign positional vertigo)acuteSept2024 1:44pmGeneralized anxiety disorderacuteSept2024 1:44pmMenieres diseaseacuteSept2024 1:44pmMorbid obesity with body mass index (BMI) of 50.0 to 59.9 in adult acuteSept2024 1:44pmIron deficiency anemiaacuteSept2024 9:25amDyspnea on exertionacuteOctober 2024 1:45pm [facility] Work Phone: 1(587) 231-637008-18-2025 Evaluation note* Diagnosis Onset Date Resolution Status Admit Date Anemia inactiveAugus2024 9:43amActive cochlear Meniere disease of right ear acutegus2024 9:03amHypertensionacuteAugust 2024 9:03amOSA on CPAPacuteAugust 2024 9:03amType II diabetes mellitusacuteAugus2024 9:03amBMI 50.0-59.9, adultnoneactiveAugust 2024 9:03amBPV (benign positional vertigo)acuteSept2024 2:16pmMenieres diseaseacuteSept2024 2:16pmMorbid obesity with body mass index (BMI) of 50.0 to 59.9 in adultacuteSept2024 2:16pmBPV (benign positional vertigo)acute March 07, 2025 1:44pmGeneralized anxiety disorderacuteSept2024 1:44pmMenieres diseaseacuteSept2024 1:44pmMorbid obesity with body mass index (BMI) of 50.0 to 59.9 in adultacuteSept2024 1:44pmAnemia inactiveSept2024 1:44pmIron deficiency anemiaacuteSept2024 9:25amBPV (benign positional vertigo)acuteOctober 2024 1:45pmDyspnea on exertionacuteOctb[facility] 2024 1:45pmGeneralized anxiety disorderacuteOctbapt[facility] health [facility] 2024 1:45pmGERD (gastroesophageal reflux disease)acuteOctbaptist health [facility] 2024 1:45pmMenieres diseaseacuteOctbaptist health [facility] 2024 1:45pmMorbid obesity with body mass index (BMI) of 50.0 to 59.9 in adultacuteOctbaptist health [facility] 2024 1:45pmAnemiainactive April 03, 2025 1:45pmAbnormal weight gainacuteOctbaptist health [facility] 2024 10:38amBMI 60.0-69.9, adultacuteOctbaptist health [facility] 2024 10:38amClass 3 severe obesity with body mass index (BMI) of 60.0 to 69.9 in adultWal[facility]. [facility] 20[facility] 10:38am DepressionacuteOctbaptist health [facility] 2024 10:38amDietary surveillance and counseling acuteSt[facility] 2024 10:38amExercise counselingacuteOctbaptist health [facility] 2024 10:38amGeneralized anxiety disorderacuteOctbaptist [facility] 2024 10:38amGERD (gastroesophageal reflux disease)acuteOctober 2024 10:38amGlaucomaacute April 07, 2025 10:38amHistory of kidney stonesacuteOctbaptist health [facility] 2024 10:38amHypertensionacuteOctb[facility] 2024 10:38amIron deficiency anemiaacute April 07, 2025 10:38amMenieres diseaseacuteOctbaptist health [facility] 2024 10:38amOSA on CPAPacuteMarbaptist health [facility] 2024 10:38amType II diabetes mellitusacuteOctober 2024 10:38am [facility] Work Phone: 1(171) 393-101008-18-2025 Evaluation note* Diagnosis Onset Date Resolution Status Admit Date Anemia inactiveAugust 2024 9:43amActive cochlear Meniere disease of right ear acuteAugust 2024 9:03amHypertensionacuteAugust 2024 9:03amOSA on CPAPacuteAugust 2024 9:03amType II diabetes mellitusacuteAugust 2024 9:03amBMI 50.0-59.9, adultnoneactiveAugust 2024 9:03amBPV (benign positional vertigo)acuteSept2024 2:16pmMenieres diseaseacuteSept2024 2:16pmMorbid obesity with body mass index (BMI) of 50.0 to 59.9 in adultacuteSept2024 2:16pmBPV (benign positional vertigo)acute March 07, 2025 1:44pmGeneralized anxiety disorderacuteSept2024 1:44pmMenieres diseaseacuteSept2024 1:44pmMorbid obesity with body mass index (BMI) of 50.0 to 59.9 in adultacuteSept2024 1:44pmAnemia inactiveSept2024 1:44pmIron deficiency anemiaacuteSept2024 9:25amBPV (benign positional vertigo)acuteOctober 2024 1:45pmDyspnea on exertionacuteOctober 2024 1:45pmGeneralized anxiety disorderacuteOctober 2024 1:45pmGERD (gastroesophageal reflux disease)acuteOctober 2024 1:45pmMenieres diseaseacuteOctober 2024 1:45pmMorbid obesity with body mass index (BMI) of 50.0 to 59.9 in adultacuteOctober 2024 1:45pmAnemiainactive April 03, 2025 1:45pmAbnormal weight gainacuteOctober 2024 10:38amBMI 60.0-69.9, adultacuteOctober 2024 10:38amClass 3 severe obesity with body mass index (BMI) of 60.0 to 69.9 in adultacuteOctober 2024 10:38am DepressionacuteOctober 2024 10:38amDietary surveillance and counseling acuteOctbapt[facility] 2024 10:38amExercise counselingacuteOctb[facility]ist health [facility] 2024 10:38amGeneralized anxiety disorderacuteOctober 2024 10:38amGERD (gastroesophageal reflux disease)acuteOctober 2024 10:38amGlaucomaacute April 07, 2025 10:38amHistory of kidney stonesacuteOctober 2024 10:38amHypertensionacuteOctbaptist health [facility] 2024 10:38amIron deficiency anemiaacute April 07, 2025 10:38amMenieres diseaseacuteOctober 2024 10:38amOSA on CPAPacuteOctbaptist health [facility] 2024 10:38amType II diabetes mellitusacuteOctober 2024 10:38amHypertensionacuteOctober 2024 8:55amIron deficiency anemia acuteOctober 2024 8:55amOSA on CPAPacuteOctober 2024 8:55amType II diabetes mellitusacuteOctober 2024 8:55amBMI 50.0-59.9, adultnoneactive April 23, 2025 8:55am [facility] Work Phone: 1(333) 628-699908-18-2025 Evaluation note* Diagnosis Onset Date Resolution Status Admit Date Anemia inactiveAugust 2024 9:43amActive cochlear Meniere disease of right ear acuteAugust 2024 9:03amHypertensionacuteAugust 2024 9:03amOSA on CPAPacuteAugust 2024 9:03amType II diabetes mellitusacuteAugust 2024 9:03amBMI 50.0-59.9, adultnoneactiveAugust 2024 9:03amBPV (benign positional vertigo)acuteSeptember 2024 2:16pmMenieres diseaseacuteSeptember 2024 2:16pmMorbid obesity with body mass index (BMI) of 50.0 to 59.9 in adultacuteSeptwhite [facility] regional medical [facility] 2024 2:16pmBPV (benign positional vertigo)acute March 07, 2025 1:44pmGeneralized anxiety disorderacuteSept2024 1:44pmMenieres diseaseacutept2024 1:44pmMorbid obesity with body mass index (BMI) of 50.0 to 59.9 in adultacuteSeptwhite mountain regional medical center 2024 1:44pmAnemia inactiveSept2024 1:44pmIron deficiency anemiaacuteSept2024 9:25amBPV (benign positional vertigo)acuteOctober 2024 1:45pmDyspnea on exertionacuteOctbapt[facility] 2024 1:45pmGeneralized anxiety disorderacuteOctb[facility] 2024 1:45pmGERD (gastroesophageal reflux disease)acuteOctbaptist health [facility] 2024 1:45pmMenieres diseaseacuteOctbaptist health [facility] 2024 1:45pmMorbid obesity with body mass index (BMI) of 50.0 to 59.9 in adultacuteOctbaptist health [facility] 2024 1:45pmAnemiainactive April 03, 2025 1:45pmAbnormal weight gainacuteOctbaptist health [facility] 2024 10:38amBMI 60.0-69.9, adultacuteOctbaptist health [facility] 2024 10:38amClass 3 severe obesity with body mass index (BMI) of 60.0 to 69.9 in adultva [facility] centerOctb[facility] 2024 10:38am DepressionacuteOctb[facility] 2024 10:38amDietary surveillance and counseling acuteOctb[facility] 2024 10:38amExercise counselingacuteOctb[facility] 2024 10:38amGeneralized anxiety disorderacuteOctb[facility] 2024 10:38amGERD (gastroesophageal reflux disease)acuteOctober 2024 10:38amGlaucomaacute April 07, 2025 10:38amHistory of kidney stonesacuteOctbapt[facility] 2024 10:38amHypertensionacuteOctb[facility] 2024 10:38amIron deficiency anemiaacute April 07, 2025 [...] 1:01pmOSA on CPAPacuteNovember 2024 1:01pmType II diabetes mellitusacuteNov2024 1:01pm [facility] Work Phone: 1(463) 951-760507-02-2025 Evaluation note* Diagnosis Onset Date Resolution Status Admit Date Diarrhea in adult patient acuteJuly 2024 11:03am [facility] Work Phone: 1(886) 558-721507-02-2025 Evaluation note* Diagnosis Onset Date Resolution Status Admit Date Diarrhea in adult patient acuteJuly 2024 11:03amAnemiaacuteAugust 2024 9:43am [facility] Work Phone: 1(186) 855-688707-02-2025 Evaluation note* Diagnosis Onset Date Resolution Status Admit Date Diarrhea in adult patient acuteJuly 2024 11:03amAnemiaacuteAugust 2024 9:43amActive cochlear Meniere disease of right earacuteAugust 2024 9:03amHypertensionacuteAugust 2024 9:03amOSA on CPAPacuteAugust 2024 9:03amType II diabetes mellitusacuteAugust 2024 9:03amBMI 50.0-59.9, adultnoneactiveAugust 2024 9:03am [facility] Work Phone: 1(384) 915-433207-02-2025 Evaluation note* Diagnosis Onset Date Resolution Status Admit Date Diarrhea in adult patient acuteJuly 2024 11:03amAnemiaacuteAugust 2024 9:43amActive cochlear Meniere disease of right earacuteAugust 2024 9:03amHypertensionacuteAugust 2024 9:03amOSA on CPAPacuteAugust 2024 9:03amType II diabetes mellitusacuteAugust 2024 9:03amBMI 50.0-59.9, adultnoneactiveAugust 2024 9:03amBPV (benign positional vertigo)acuteSept2024 2:16pm Menieres diseaseacuteSept2024 2:16pmMorbid obesity with body mass index (BMI) of 50.0 to 59.9 in adultacuteSept2024 2:16pmAnemiaacute March 07, 2025 1:44pm [facility] Work Phone: 1(222) 140-190207-02-2025 Evaluation note* Diagnosis Onset Date Resolution Status Admit Date Diarrhea in adult patient acuteJuly 2024 11:03amAnemiaacuteAugust 2024 9:43amActive cochlear Meniere disease of right earacuteAugust 2024 9:03amHypertensionacuteAugust 2024 9:03amOSA on CPAPacuteAugust 2024 9:03amType II diabetes mellitusacuteAugust 2024 9:03amBMI 50.0-59.9, adultnoneactiveAugust 2024 9:03amBPV (benign positional vertigo)acuteSept2024 2:16pm Menieres diseaseacuteSept2024 2:16pmMorbid obesity with body mass index (BMI) of 50.0 to 59.9 in adultacuteSept2024 2:16pmAnemiaacute March 07, 2025 1:44pmIron deficiency anemiaacuteSept2024 9:25am [facility] Work Phone: 1(406) 441-918004-15-2025 History of Present illness Narrative* Liam H Timmis, MD - 10/08/2024 10:20 AM EDT Subjective Patient ID: Nati Santos is a 39 y.o. female who presents for Ear Problem (6 week low sodium) Pt states she continues to have left ear fullness. Not following a low sodium diet. Family History Problem Relation Name Age of Onset Cancer Mother Hypertension Father Heart failure Father Thyroid disease Sister Active Ambulatory Problems Diagnosis Date Noted Abdominal pain 02/26/2017 Flank pain 02/06/2024 Acute lumbar myofascial strain 02/06/2024 Anemia 02/06/2024 BPV (benign positional vertigo) 02/06/2024 Bronchitis 02/06/2024 Glaucoma 02/06/2024 Headache 02/06/2024 Irregular menses 02/06/2024 Vertigo 02/06/2024 Type 2 diabetes mellitus 02/06/2024 BRANDON (obstructive sleep apnea) 02/06/2024 Hypertension ([facility]) 02/06/2024 KAE (generalized anxiety disorder) ([facility]) 02/06/2024 Ovarian cyst 04/04/2024 Resolved Ambulatory Problems Diagnosis Date Noted Cat scratch 02/06/2024 Gastroenteritis 02/06/2024 Nausea 02/06/2024 Past Medical History: Diagnosis Date Anxiety Depression ([facility]) Diabetes 1.5, managed as type 2 ([facility]) ([facility]) Dizziness Past Surgical History: Procedure Laterality Date CARPAL TUNNEL RELEASE Allergies Allergen Reactions Sulfamethoxazole-Trimethoprim Anaphylaxis Other Reaction(s): Unknown Sulfamethoxazole Other Reaction(s): Swelling of Lip/Tongue/Throat, tongue swelling Trimethoprim Other Reaction(s): Swelling of Lip/Tongue/Throat, tongue swelling Penicillins Rash Other Reaction(s): Unknown Current Outpatient Medications on File Prior to Visit Medication Sig Dispense Refill aspirin 81 MG chewable tablet Chew 81 mg in the morning. atorvastatin (Lipitor) 40 MG tablet Take 40 mg by mouth Daily furosemide (Lasix) 40 MG tablet Take 40 mg by mouth Daily meclizine (Antivert) 25 MG tablet Take 25 mg by mouth as needed in the morning and 25 mg as needed in the evening. metFORMIN (Glucophage) 1000 MG tablet Take 1,000 mg by mouth in the morning and 1,000 mg in the evening. Take with meals. metoprolol tartrate (Lopressor) 50 MG tablet Take 50 mg by mouth in the morning and 50 mg before bedtime. potassium chloride CR (Klor-Con) 10 MEQ ER tablet Take 10 mEq by mouth in the morning and 10 mEq inthe evening and 10 mEq before bedtime. sertraline (Zoloft) 100 MG tablet Take 100 mg by mouth Daily SUMAtriptan (Imitrex) 50 MG tablet venlafaxine XR (Effexor XR) 75 MG 24 hr capsule Take 75 mg by mouth Daily Do not crush or chew. No current facility-administered medications on file prior to visit. Objective Last Recorded Vitals Vitals: 10/08/24 1021 BP: 127/66 Pulse: 76 ENT Physical Exam Ear Ear Canals: left ear canal normal; Tympanic Membranes: left tympanic membrane normal; Assessment/Plan Diagnoses and all orders for this visit: Active cochlear Meniere disease of right ear As not following low sodium diet I will hold off and changing meds. I will arrange for an outpatient electrical appliance repairer consult for a 1700mg/d low sodium diet. Once pt has followed the diet for 6 weeks she will F/U with us. documented in this encounterFulton Medical Center- [id number] Evaluation note* Diagnosis Onset Date Resolution Status Admit Date BPV (benign positional vertigo) acuteApril 2024 11:01amGeneralized anxiety disorderacuteApril 2024 11:01amActive cochlear Meniere disease of right earacuteApril 2024 9:42am [facility] Work Phone: 1(220) 966-876602-24-2025 Evaluation note* Diagnosis Onset Date Resolution Status Admit Date BPV (benign positional vertigo) acuteFebruary 2024 2:59pmType II diabetes mellitusacuteFebruary 2024 2:59pm [facility] Work Phone: 1(666) 482-596602-24-2025 Evaluation note* Diagnosis Onset Date Resolution Status Admit Date BPV (benign positional vertigo) acuteFebruary 2024 2:59pmType II diabetes mellitusacuteFebruary 24th, 2025 2:59pmBPV (benign positional vertigo)acuteMarch 2024 8:56amGeneralized anxiety disorderacuteApril 2024 11:01am [facility] Work Phone: 1(116) 562-745602-24-2025 Evaluation note* Diagnosis Onset Date Resolution Status Admit Date BPV (benign positional vertigo) acuteFebruary 2024 2:59pmType II diabetes mellitusacuteFebruary 2024 2:59pmBPV (benign positional vertigo)acuteMarch 2024 8:56amBPV (benign positional vertigo)acuteApril 2024 11:01amGeneralized anxiety disorder acuteApril 2024 11:01am [facility] Work Phone: 1(334) 965-616302-18-2025 History of Present illness Narrative* Liam Waggoner MD - 08/13/2024 2:20 PM EST Subjective Patient ID: Nati Santos is a 39 y.o. female who presents for Hearing Loss (Follow up VNG 07/29/24) VNG showed a RT RVR and central findings. Family History Problem Relation Name Age of Onset Cancer Mother Hypertension Father Heart failure Father Thyroid disease Sister Active Ambulatory Problems Diagnosis Date Noted Abdominal pain 02/26/2017 Flank pain 02/06/2024 Acute lumbar myofascial strain 02/06/2024 Anemia 02/06/2024 BPV (benign positional vertigo) 02/06/2024 Bronchitis 02/06/2024 Glaucoma ([facility]) 02/06/2024 Headache 02/06/2024 Irregular menses 02/06/2024 Vertigo 02/06/2024 Type 2 diabetes mellitus ([facility]) 02/06/2024 BRANDON (obstructive sleep apnea) 02/06/2024 Hypertension ([facility]) 02/06/2024 KAE (generalized anxiety disorder) ([facility]) 02/06/2024 Ovarian cyst 04/04/2024 Resolved Ambulatory Problems Diagnosis Date Noted Cat scratch 02/06/2024 Gastroenteritis 02/06/2024 Nausea 02/06/2024 Past Medical History: Diagnosis Date Anxiety Depression ([facility]) Diabetes 1.5, managed as type 2 (HCC) (CMS/HCC) Dizziness Past Surgical History: Procedure Laterality Date CARPAL TUNNEL RELEASE Allergies Allergen Reactions Sulfamethoxazole-Trimethoprim Anaphylaxis Other Reaction(s): Unknown Sulfamethoxazole Other Reaction(s): Swelling of Lip/Tongue/Throat, tongue swelling Trimethoprim Other Reaction(s): Swelling of Lip/Tongue/Throat, tongue swelling Penicillins Rash Other Reaction(s): Unknown Current Outpatient Medications on File Prior to Visit Medication Sig Dispense Refill aspirin 81 MG chewable tablet Chew 81 mg in the morning. atorvastatin (Lipitor) 40 MG tablet Take 40 mg by mouth Daily furosemide (Lasix) 40 MG tablet Take 40 mg by mouth Daily meclizine (Antivert) 25 MG tablet Take 25 mg by mouth 2 (two) times a day as needed metFORMIN (Glucophage) 1000 MG tablet Take 1,000 mg by mouth in the morning and 1,000 mg in the evening. Take with meals. metoprolol tartrate (Lopressor) 50 MG tablet Take 50 mg by mouth in the morning and 50 mg before bedtime. potassium chloride CR (Klor-Con) 10 MEQ ER tablet Take 10 mEq by mouth in the morning and 10 mEq inthe evening and 10 mEq before bedtime. sertraline (Zoloft) 100 MG tablet Take 100 mg by mouth Daily SUMAtriptan (Imitrex) 50 MG tablet Every 2 hours venlafaxine XR (Effexor XR) 75 MG 24 hr capsule Take 75 mg by mouth Daily Do not crush or chew. No current facility-administered medications on file prior to visit. Objective Last Recorded Vitals Vitals: 08/13/24 1416 BP: 114/64 Pulse: 66 ENT Physical Exam Constitutional Appearance: patient appears well-developed, well-nourished and well-groomed, Communication/Voice: communication appropriate for developmental age; vocal quality normal; Assessment/Plan Diagnoses and all orders for this visit: Peripheral vestibulopathy of right ear Migrainous dizziness Active cochlear Meniere disease of right ear VNG had clear peripheral findings that were c/w pt's RT SNHL. Ordinarily I would treat this with dyazide and a low sodium diet. I will start with just a low sodium diet at pt alread on lasix and K. If no help I'll check with Dr Ahumada about stopping those meds and starting dyazide. Recommend pt continue working on migraines with Dr Zavala as it seems likely there are potentially 2 issues. documented in this [facility]02-04-2025 Telephone encounter Note* Telephone Encounter - Liam Waggoner MD - 07/30/2024 2:30 PM EST VNG reviewed and there is a RT RVR as well as central findings [facility] Work Phone: 1(856) 477-508402-04-2025 Miscellaneous Notes* Telephone Encounter - Liam Waggoner MD - 07/30/2024 2:30 PM EST VNG reviewed and there is a RT RVR as well as central findings documented in this [facility]02-03-2025 History of Present illness Narrative* Marry Hall, BRIAN - 07/29/2024 3:00 PM EST VNG Report Name: Nati Santos : 1985 Date: 07/29/2024 Referring Physician: Liam Waggoner MD History: Nati Santos, a 39 y.o. female, was seen today in the [facility] Audiology Department for VNG testing. She reports a history of dizziness since November of 2023 when she experienced a month longepisode of headaches, imbalance, room spinning vertigo, and lightheadedness. Symptoms now come and go for days at a time with the last episode occurring at the end 2023 with severe symptoms. Between episodes she is symptom free. She feels her symptoms are increased with stress. Symptoms are alleviated by migraine medication given to her from her neurologist, and by sleeping. Falls were denied.She reports a history of migraine, diabetes, high blood pressure, and Lyme disease. Nati also reports difficulty hearing in the right ear, intermittent tinnitus, and left sided otalgia that has been chronic since onset of dizziness. Results: Saccade: Borderline normal peak velocity, which may be explained by drowsiness or inattention. Otherwise WNL. Tracking: WNL Gaze: WNL. Gaze right without fixation produced subclinical right beating nystagmus and gaze left without fixation produced subclinical left beating nystagmus. Optokinetics: WNL at 20 degrees. Able to complete intermittently at 40 degrees in the rightward direction and unable to complete at 40 degrees in the leftward direction. Head Shake: negative [place]-Hallpike: Rotary nystagmus was not recorded nor did the patient report any symptoms Positionals: WNL Calorics: Right Cool: 5 deg/sec Left Cool: -12 deg/sec Right Warm: -5 deg/sec Left Warm: 9 deg/sec Unilateral Weakness: 35% to the right, Abnormal Directional Preponderance: 10% to the right, WNL Fixation Suppression: WNL Impressions: Abnormal VNG. Calorics reveal a right sided peripheral weakness. Negative head shake suggests she has compensated for this weakness at this time. Difficulty completing OPK testing at 40 degrees in the leftward direction is a central finding. Borderline normal peak velocity during saccades may also suggest a central finding if not caused by drowsiness. All other oculomotor and positional subtests are within normal limits. Recommendations: Further testing and treatment as warranted by Dr. Waggoner. Vestibular physical therapy may be beneficial to address the peripheral weakness identified today. Review of testing results by Nati's neurologist is likely beneficial given the central findings identified today. Results were not discussedwith Nati at this time. Thank you for the opportunity to work with Nati today. Brian Magallanes, CCC-A [facility] History of Present illness Narrative* Liam Waggoner MD - 04/16/2024 11:30 AM EDT Subjective Patient ID: Nati Santos is a 38 y.o. female who presents for Vertigo (Audio 02/21/24) Pt reports she has intermittent dysequalibrium. Was persistent November and December. Pt states it has now more or less resolved. Last had a spell 1-2 weeks ago lasting 1-2 days. Audio shows essentially unilateral RT SNHL. Darnell tymps normal. H/O migraines. Bright lights and loud noise exacerbates pt's dizziness. Imitrex helps both pt's headaches and dizziness. MRI brain reviewed and there is no space-occupying lesion in the IACs on T2 images. Review of Systems All other systems reviewed and are negative. Family History Problem Relation Name Age of Onset Cancer Mother Hypertension Father Heart failure Father Thyroid disease Sister Active Ambulatory Problems Diagnosis Date Noted Abdominal pain 02/26/2017 Flank pain 02/06/2024 Acute lumbar myofascial strain 02/06/2024 Anemia 02/06/2024 BPV (benign positional vertigo) 02/06/2024 Bronchitis 02/06/2024 Glaucoma ([facility]) 02/06/2024 Headache 02/06/2024 Irregular menses 02/06/2024 Vertigo 02/06/2024 Type 2 diabetes mellitus ([facility]) 02/06/2024 BRANDON (obstructive sleep apnea) 02/06/2024 Hypertension ([facility]) 02/06/2024 KAE (generalized anxiety disorder) ([facility]) 02/06/2024 Ovarian cyst 04/04/2024 Resolved Ambulatory Problems Diagnosis Date Noted Cat scratch 02/06/2024 Gastroenteritis 02/06/2024 Nausea 02/06/2024 Past Medical History: Diagnosis Date Anxiety Depression ([facility]) Diabetes 1.5, managed as type 2 ([facility]) ([facility]) Dizziness Past Surgical History: Procedure Laterality Date CARPAL TUNNEL RELEASE Allergies Allergen Reactions Sulfamethoxazole-Trimethoprim Anaphylaxis Other Reaction(s): Unknown Sulfamethoxazole Other Reaction(s): Swelling of Lip/Tongue/Throat, tongue swelling Trimethoprim Other Reaction(s): Swelling of Lip/Tongue/Throat, tongue swelling Penicillins Rash Other Reaction(s): Unknown Current Outpatient Medications on File Prior to Visit Medication Sig Dispense Refill aspirin 81 MG chewable tablet Chew 81 mg in the morning. atorvastatin (Lipitor) 40 MG tablet Take 40 mg by mouth Daily furosemide (Lasix) 40 MG tablet Take 40 mg by mouth Daily meclizine (Antivert) 25 MG tablet Take 25 mg by mouth 2 (two) times a day as needed metFORMIN (Glucophage) 1000 MG tablet Take 1,000 mg by mouth in the morning and 1,000 mg in the evening. Take with meals. metoprolol tartrate (Lopressor) 50 MG tablet Take 50 mg by mouth in the morning and 50 mg before bedtime. potassium chloride CR (Klor-Con) 10 MEQ ER tablet Take 10 mEq by mouth in the morning and 10 mEq inthe evening and 10 mEq before bedtime. sertraline (Zoloft) 100 MG tablet Take 100 mg by mouth Daily SUMAtriptan (Imitrex) 50 MG tablet Every 2 hours venlafaxine XR (Effexor XR) 75 MG 24 hr capsule Take 75 mg by mouth Daily Do not crush or chew. No current facility-administered medications on file prior to visit. Objective Last Recorded Vitals Vitals: 04/16/24 1135 BP: 133/68 ENT Physical Exam Constitutional Appearance: patient appears well-developed, well-nourished and well-groomed, Head and Face Appearance: head appears normal and face appears atraumatic; Ear Ear Canals: right ear canal normal; left ear canal normal; Tympanic Membranes: right tympanic membrane normal; left tympanic membrane normal; Nose External Nose: nares patent bilaterally; external nose normal; Internal Nose: septum normal; Oral Cavity/Oropharynx Tongue: normal; Oral mucosa: normal; Hard palate: normal; Soft palate: normal; Tonsils: normal; Neck Neck: neck normal; neck palpation normal; Thyroid: thyroid normal; Respiratory Inspection: breathing unlabored; normal breathing rate; Auscultation: breath sounds are clear; Cardiovascular Inspection: extremities are warm and well perfused; no peripheral edema present; Auscultation: regular rate and rhythm; Assessment/Plan Diagnoses and all orders for this visit: Sensorineural hearing loss (SNHL) of right ear with unrestricted hearing of left ear Dizziness and giddiness Migraine without status migrainosus, not intractable, unspecified migraine type (CMS/HCC) It is almost certain that pt has migraine variant dizziness as well as migraine headaches. Given the presence of mild unilateral SNHL (and no AN) there is a chance she has Meniere's. I will check a VNG and tx Menieres if there is a right RVR documented in this encounterF[facility]- [id number] Evaluation note* Diagnosis Onset Date Resolution Status Admit Date BPV (benign positional vertigo) acuteOctober 2023 10:55am [facility] Work Phone: 1(168) 694-305308-28-2024 History of Present illness Narrative* KASSANDRA Velazquez - 02/21/2024 9:45 AM EDT History: Pt was referred to ENT because of episodic vertigo, onset end of October. Vertigo lasted almost 2 months. She has not noticed difficulty hearing. She does report periodic tinnitus both ears. History is positive for excessive noise exposure. Otoscopic Exam: Ear canal clear and TM intact AU Pure Tone Audiometry Right Ear: Mild conductive hearing loss at 4K Hz. Mild hearing loss at 8K Hz Left Ear: Mild sensorineural hearing loss at 6K Hz Speech Audiometry Right SRT = 10 dB and word discrimination score at 50 dBHL = 100% Left SRT = 10 dB and word discrimination score at 50 dBHL = 100% Tympanometry Right Ear: Type A tympanogram Left Ear: Type A tympanogram documented in this encounterFulton [facility] Center- [id number] Evaluation note* Encounter Date Diagnosis Assessment Notes Treatment Notes Treatment Clinical Notes May, Essential (primary) hypertension (ICD-10 - I10) Blood pressure remains well controlled at this time. Denies cardiac symptoms. Shows no signs or symptoms or poor control. Patient to continue with above medication and we will continue to monitor. Advised to pay attention to body and symptoms. Any developing patterns. Stay well hydrated. May,Type 2 diabetes mellitus with hyperglycemia, without long-term current use of insulin (ICD-10 - E11.65)Diabetes well controlled. No hypoglycemia. Home blood sugars reviewed. Patterns stable. Patient is to be careful with diet and meal timing. Understands the importance of this. Doesn't skip meals. Compliant with medications. Patient is advised to have a snack before bedtime. Patient is to pay attention to body and symptoms, with any reoccurring patterns. May,yslipidemia (ICD-10 - E78.5)Patient to continue to watch diet and increase exercise routine. Remain active as tolerated and we will continue to monitor with routine blood work. Patient is to continue with above medication as directed. [facility] Other 12-18-2023 Evaluation note* Encounter Date Diagnosis Assessment Notes Treatment Notes Treatment Clinical Notes May, Acute non-recurrent maxillary si nusitis (ICD-10 - J01.00) Finish already prescribed meds. Call if further needs. Pt requests tessalon for cough. [facility] Other 10-26-2023 Evaluation note* Encounter Date Diagnosis Assessment Notes Treatment Notes Treatment Clinical Notes Mar, Acute non-recurrent maxillary si nusitis (ICD-10 - J01.00) Will tx tody for bacterial sinusitis based on physical exam and duration of symptoms. Take antibiotic as prescribed, complete entire course of therapy even if symptoms resolve. . Supportive care as directed, push fluids and rest, Tylenol/Motrin as directed for aches/fever, warm moist compress over sinuses several times a day, cool mist humidifier, nasal saline spray as directed. Symptoms should improve in the next 3 days, if symptoms persist follow up with PCP. Immediate eval for warning s/sx as discussed. Patient verbalizes understanding and is agreeable to treatment plan. [facility] Other 08-29-2023 Evaluation note* Encounter Date Diagnosis Assessment Notes Treatment Notes Treatment Clinical Notes Jan, Encounter for genera l adult medical examination without abnormal findings (ICD-10 - Z00.00) Pt just seen. This is a courtesy visit to complete paperwork for her new job. Forms completed. [facility] Other 03-14-2023 Evaluation note* Encounter Date Diagnosis Assessment Notes Treatment Notes Treatment Clinical Notes Aug, Obstructive sleep apnea (ICD-10 - G47.33) Fortunately, the patient is using and benefiting from treatment. Download was reviewed with patient, Current pressure is controlling apnea well, And we will make no changes at this time. A prescription was sent to the [facility] for new supplies throughout the year. She was encouraged to continue to use her machine nightly, throughout the entire night and for naps as this does provide clinical benefit. She will follow-up in the sleep clinic in 1 year or sooner if problems. Aug,Hypoxia, sleep related (ICD-10 - G47.34)Patients with untreated apnea-associated nocturnal hypoxia have more heart attacks, strokes, and sym ptomatic pulmonary hypertension. This emphasizes importance of using treatment every night, all night. Aug,MI 50.0-59.9, adult (ICD-10 - Z68.43)Patient's weight is down since last visit. Positive effects of weight loss on BRANDON were reviewed. She was advised to follow diet modification and increase activity as tolerated. We will continue to monitor. [facility] Other 10-16-2022 Evaluation note* Encounter Date Diagnosis Assessment Notes Treatment Notes Treatment Clinical Notes Mar, Acute otitis media with effusion of left ear (ICD-10 - H65.192) Advised that ear infections often occur secondary to URIs. Use antibiotic as directed. Follow abovetreatment plan recommendations Mar,OVID-19 (ICD-10 - U07.1) COVID PCR test performed in office today. Advised patient that test was positive. Instructed patient to isolate per CDC guidelines for 5 days from symptom onset, mask 5 days following. May return to work/activities outside home after isolation period as long as symptoms are improving and has been afebrile for 24 hours without use of antipyretic. Advised patient that treatment of COVID is with viral supportive carerx of steroid as directed, Tylenol as needed for body aches/fever. Increase fluids and rest. Encouraged use of cool mist humidifier. Follow-up with PCP to advise of positive result and further management. Immediate eval for SOB, difficulty, chest pain, fevers that do not break with antipyretic or any other concerning symptoms as reviewed on patient education handout. Patient verbalizes understanding and is agreeable to treatment plan. Patient left in stable condition Mar,ontact with and (suspected) exposure to other viral communicable diseases (ICD-10 - Z20.828) [facility] Other 08-15-2022 Evaluation note* Encounter Date Diagnosis Assessment Notes Treatment Notes Treatment Clinical Notes Jan, Contact with and (alaniz spected) exposure to other viral communicable diseases (ICD-10 - Z20.828) [facility] Other 06-22-2022 NoteEntered by Vale Brown LPN on December 15, 2021 07:51:03 EDT From: Vale Brown LPN To: [facility] #[id number] Sent: 12/15/2021 07:51:03 EDT Subject: Medication Management Not Approved: Patient needs appointment venlafaxine (VENLAFAXINE ER 75MG CAPSULES) TAKE 1 CAPSULE BY MOUTH DAILY WITH FOOD Qty: 90 cap(s) Days Supply: 90 Refills: 0 Substitutions Allowed Route To Pharmacy - [facility] #[id number] Signed by Vale Brown LPN Not Approved: Patient needs appointment potassium chloride (POTASSIUM CL 10MEQ ER CAPSULES) TAKE 1 CAPSULE BY MOUTH TWICE DAILY Qty: 60 cap(s) Days Supply: 30 Refills: 0 Substitutions Allowed Route To Pharmacy - [facility] #[id number] Signed by Vale Brown LPN From: [facility] #[id number] To: Rere VARGAS, Trice Clark CNP Sent: December 15, 2021 5:27:17 AM CDT Subject: Medication Management Due: December 16, 2021 2:44:24 AM CDT On Hold Pending Signature Dispensed Drug: venlafaxine (venlafaxine 75 mg oral capsule, extended release), TAKE 1 CAPSULE BY MOUTH DAILY WITH FOOD Quantity: 90 cap(s) Days Supply: 90 Refills: 0 Substitutions Allowed Notes from Pharmacy: On Hold Pending Signature Dispensed Drug: potassium chloride (potassium chloride 10 mEq oral capsule, extended release), TAKE1 CAPSULE BY MOUTH TWICE DAILY Quantity: 60 cap(s) Days Supply: 30 Refills: 0 Substitutions [id number] Note Entered by Vale Brown LPN on November 12, 2021 07:44:57 EDT From: Vale Brown LPN To: [facility] #[id number] Sent: 11/12/2021 07:44:57 EDT Subject: Medication Management Not Approved: Patient needs appointment potassium chloride (POTASSIUM CL 10MEQ ER CAPSULES) TAKE 1 CAPSULE BY MOUTH TWICE DAILY Qty: 60 cap(s) Days Supply: 30 Refills: 0 Substitutions Allowed Route To Pharmacy - [facility] #[id number] Signed by Vale Brown LPN Not Approved: Patient needs appointment metoprolol (METOPROLOL TARTRATE 50MG TABLETS) TAKE 1 TABLET BY MOUTH TWICE DAILY Qty: 180 tab(s) Days Supply: 90 Refills: 0 Substitutions Allowed Route To [id number] Signed by Vale Brown LPN From: [facility] #[id number] To: Trice Milner CNP Sent: November 12, 2021 5:23:23 AM CDT Subject: Medication Management Due: November 13, 2021 12:09:41 AM CDT On Hold Pending Signature Dispensed Drug: potassium chloride (potassium chloride 10 mEq oral capsule, extended release), TAKE1 CAPSULE BY MOUTH TWICE DAILY Quantity: 60 cap(s) Days Supply: 30 Refills: 0 Substitutions Allowed Notes from Pharmacy: On Hold Pending Signature Dispensed Drug: metoprolol (Metoprolol Tartrate 50 mg oral tablet), TAKE 1 TABLET BY MOUTH TWICE DAILY Quantity: 180 tab(s) Days Supply: 90 Refills: 0 Substitutions Allowed [id number] Note Entered by Vale Brown LPN on October 18, 2021 08:04:27 EDT From: Vale Brown LPN To: [facility] #[id number] Sent: 10/18/2021 08:04:27 EDT Subject: Medication Management Not Approved: Patient needs appointment venlafaxine (VENLAFAXINE ER 75MG CAPSULES) TAKE 1 CAPSULE BY MOUTH DAILY WITH FOOD Qty: 30 cap(s) Days Supply: 30 Refills: 0 Substitutions Allowed Route To Pharmacy - [facility] #[id number] Signed by Vale Brown LPN From: [facility] #[id number] To: Trice Milner CNP Sent: October 17, 2021 2:28:31 AM CDT Subject: Medication Management Due: October 18, 2021 12:13:19 AM CDT On Hold Pending Signature Dispensed Drug: venlafaxine (venlafaxine 75 mg oral capsule, extended release), TAKE 1 CAPSULE BY MOUTH DAILY WITH FOOD Quantity: 30 cap(s) Days Supply: 30 Refills: 0 Substitutions Allowed [id number] Note Entered by Vale Brown LPN on September 01, 2021 07:49:00 EST From: Vale Brown LPN To: [facility] #[id number] Sent: 09/01/2021 07:49:00 EST Subject: Medication Management Not Approved: Patient needs appointment potassium chloride (POTASSIUM CL 10MEQ ER CAPSULES) TAKE 1 CAPSULE BY MOUTH THREE TIMES DAILY Qty: 90 cap(s) Days Supply: 30 Refills: 0 Substitutions Allowed Route To Pharmacy - [facility] #[id number] Signed by Vale Brown LPN Not Approved: Patient needs appointment furosemide (FUROSEMIDE 40MG TABLETS) TAKE 1 TABLET BY MOUTH DAILY Qty: 30 tab(s) Days Supply: 30 Refills: 0 Substitutions Allowed Route To Pharmacy - [facility] #[id number] Signed by Vale Brown LPN From: [facility] #[id number] To: Rere VARGAS, Trice Clark CNP Sent: September 01, 2021 5:21:03 AM DIE GRINDER Subject: Medication Management Due: September 02, 2021 12:05:36 AM DIE GRINDER On Hold Pending Signature Dispensed Drug: potassium chloride (potassium chloride 10 mEq oral capsule, extended release), TAKE1 CAPSULE BY MOUTH THREE TIMES DAILY Quantity: 90 cap(s) Days Supply: 30 Refills: 0 Substitutions Allowed Notes from Pharmacy: On Hold Pending Signature Dispensed Drug: furosemide (furosemide 40 mg oral tablet), TAKE 1 TABLET BY MOUTH DAILY Quantity: 30 tab(s) Days Supply: 30 Refills: 0 Substitutions Allowed [id number] Note Entered by Vale Brown LPN on July 13, 2021 07:53:07 EST From: Vale Brown LPN To: [facility] #[id number] Sent: 07/13/2021 07:53:07 EST Subject: Medication Management Not Approved: Patient needs appointment buPROPion (BUPROPION SR 150MG TABLETS (12 H)) TAKE 1 TABLET BY MOUTH TWICE DAILY Qty: 60 tab(s) Days Supply: 30 Refills: 0 Substitutions Allowed Route To Pharmacy - [facility] #[id number] Signed by Vale Brown LPN Not Approved: Patient needs appointment amLODIPine (AMLODIPINE BESYLATE 5MG TABLETS) TAKE 1 TABLET BY MOUTH EVERY DAY Qty: 30 tab(s) Days Supply: 30 Refills: 0 Substitutions Allowed Route To Pharmacy - [facility] #[id number] Signed by Vale Brown LPN From: [facility] #[id number] To: Rere VARGAS, Trice Clark CNP Sent: July 13, 2021 5:21:31 AM DIE GRINDER Subject: Medication Management Due: July 14, 2021 12:08:57 AM DIE GRINDER On Hold Pending Signature Dispensed Drug: buPROPion (BuPROPion (Eqv-Wellbutrin SR) 150 mg/12 hours oral tablet, extended release), TAKE 1 TABLET BY MOUTH TWICE DAILY Quantity: 60 tab(s) Days Supply: 30 Refills: 0 Substitutions Allowed Notes from Pharmacy: On Hold Pending Signature Dispensed Drug: amLODIPine (amLODIPine 5 mg oral tablet), TAKE 1 TABLET BY MOUTH EVERY DAY Quantity: 30 tab(s) Days Supply: 30 Refills: 0 Substitutions Allowed [id number] Note Entered by Sugar Treadwell on March 25, 2021 08:02:40 EDT From: Sugar Treadwell To: [facility] #[id number] Sent: 03/25/2021 08:02:39 EDT Subject: Medication Management Submitted: Complete:buPROPion (buPROPion 150 mg/12 hours (SR) oral tablet, extended release) Signed by Sugar Treadwell 03/25/2021 08:02:00 EDT Approved buPROPion (BUPROPION SR 150MG TABLETS (12 H)) TAKE 1 TABLET BY MOUTH TWICE DAILY Qty: 60 tab(s) Days Supply: 30 Refills: 0 Substitutions Allowed Route To Pharmacy - [facility] #[id number] Signed by Sugar Treadwell From: [facility] #[id number] To: Rere VARGAS, Trice Clark CNP Sent: March 24, 2021 5:13:26 PM CDT Subject: Medication Management Due: March 25, 2021 12:05:52 AM CDT On Hold Pending Signature Dispensed Drug: buPROPion (BuPROPion (Eqv-Wellbutrin SR) 150 mg/12 hours oral tablet, extended release), TAKE 1 TABLET BY MOUTH TWICE DAILY Quantity: 60 tab(s) Days Supply: 30 Refills: 0 Substitutions Allowed [id number] From: Estefany Beaver ([facility] ([facility] To: Vale Brown LPN; Sent: 03/09/2021 08:37:45 EDT Subject: FW: Medication Management Due Date/Time: 03/10/2021 06:23:00 EDT From: [facility] #[id number] To: ELFEGO BETANCUR, AIDEN Clark MD Sent: March 09, 2021 5:23:47 AM CDT Subject: Medication Management Due: March 10, 2021 12:11:54 AM CDT On Hold Pending Signature Dispensed Drug: buPROPion (BuPROPion (Eqv-Wellbutrin SR) 150 mg/12 hours oral tablet, extended release), TAKE 1 TABLET BY MOUTH TWICE DAILY Quantity: 60 tab(s) Days Supply: 30 Refills: 0 Substitutions Allowed Notes from Pharmacy: From: Vale Brown LPN To: Trice Milner; Sent: 03/09/2021 13:01:41 EDT Subject: FW: Medication Management Due Date/Time: 03/10/2021 06:23:00 EDT From: Trice Milner To: [facility] #[id number] Sent: 03/09/2021 14:44:31 EDT Subject: FW: Medication Management Not Approved: New prescription sent separately under my name buPROPion (BUPROPION SR 150MG TABLETS (12 H)) TAKE 1 TABLET BY MOUTH TWICE DAILY Qty: 60 tab(s) Days Supply: 30 Refills: 0 Substitutions Allowed Route To Pharmacy - [facility] #[id number] Signed by Trice Milner [facility]08-18-2021 Note From: Vale Brown LPN ([facility] ([facility] [place] To: Trice Milner; Sent: 02/09/2021 13:49:55 EDT Subject: FW: Medication Management Due Date/Time: 02/10/2021 13:24:00 EDT From: [facility] #[id number] To: Trice Milner [employer]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 Sent: February 09, 2021 12:24:45 PM CDT Subject: Medication Management Due: February 10, 2021 9:36:46 AM CDT On Hold Pending Signature Dispensed Drug: furosemide (furosemide 40 mg oral tablet), TAKE 1 TABLET BY MOUTH DAILY Quantity: 14 tab(s) Days Supply: 14 Refills: 0 Substitutions Allowed Notes from Pharmacy: From: Trice Milner To: [facility] #[id number] Sent: 02/09/2021 20:17:24 EDT Subject: FW: Medication Management Not Approved: have patient call office furosemide (FUROSEMIDE 40MG TABLETS) TAKE 1 TABLET BY MOUTH DAILY Qty: 14 tab(s) Days Supply: 14 Refills: 0 Substitutions Allowed Route To Pharmacy - [facility] #[id number] From: Trice Milner To: [facility] ([facility]); Sent: 02/09/2021 20:17:49 EDT Subject: RE: Medication Management Asked patient to call back -not sure that I am going to keep her on 40 mg of Lasix at this point [facility] noteNo InformationNort INVERMART Other Evaluation noteNo assessment information available [facility] Work Phone: Evaluation note* Diagnosis Onset Date Resolution Status Anemia acuteGlaucomaacuteType II diabetes mellitusacute [facility] Work Phone: Evaluation note* Diagnosis Onset Date Resolution Status Anemia acuteGastroenteritisacuteGlaucomaacuteType II diabetes mellitusacute [facility] Work Phone: Evaluation note* Diagnosis Onset Date Resolution Status Anemia acuteGastroenteritisacuteGlaucomaacuteType II diabetes mellitusacuteBPV (benign positional vertigo)[facility] Work Phone: Evaluation note* Diagnosis Onset Date Resolution Status Anemia acuteGastroenteritisacuteGlaucomaacuteType II diabetes mellitusacuteBPV (benign positional vertigo)acuteBPV (benign positional vertigo)acuteNauseaacuteBPV (benign positional vertigo)acuteHeadacheacuteNauseaacuteVisual changesacute [facility] Work Phone: Evaluation note* Diagnosis Onset Date Resolution Status Headache acute [facility] Work Phone: Evaluation note* Diagnosis Sensorineural hearing loss (SNHL) of right ear with unrestricted hearing of left ear- Primary Dizziness and giddiness Migraine without status migrainosus, not intractable, unspecified migraine type (CMS/HCC) documented in this encounter [facility] HealthcareEvaluation [facility]* Diagnosis Sensorineural hearing loss (SNHL) of both ears- Primary Vertigo Dizziness and giddiness documented in this encounter [facility] HealthcareEvaluation note* Diagnosis Dizziness and giddiness- Primary documented in [facility]* Diagnosis Peripheral vestibulopathy of right ear- Primary Migrainous dizziness Active cochlear Meniere disease of right ear documented in this encounter [facility] HealthcareEvaluation note* Diagnosis Active cochlear Meniere disease of right ear- Primary documented in this encounter [facility] HealthcareEvaluation note* Diagnosis Dizziness- Primary Dizziness and giddiness Fullness in ear, bilateral Tinnitus of both ears Unspecified tinnitus documented in this encounter [facility]* Diagnosis Benign paroxysmal vertigo of right ear- Primary Meniere's disease of right ear Dizziness Dizziness and giddiness Fullness in ear, bilateral Sleep apnea treated with continuous positive airway pressure (CPAP) Meniere's disease of right ear Dizziness Dizziness and giddiness documented in this encounter [facility]* Diagnosis Well woman exam with routine gynecological exam- Primary Routine gynecological examination Pap smear, as part of routine gynecological examination Screening for malignant neoplasm of the cervix Standardized adult depression screening tool completed Abnormal uterine bleeding Unspecified disorder of menstruation and other abnormal bleeding from female genital tract Encounter for screening mammogram for malignant neoplasm of breast documented in this encounter [facility] note* Diagnosis Benign paroxysmal vertigo of right ear- Primary Meniere's disease of right ear Dizziness Dizziness and giddiness Fullness in ear, bilateral documented in this encounter [facility]* Diagnosis Menorrhagia with regular cycle documented in this encounter [facility] Healthcare[facility] general Narrative - Reported* Type Description Date Medical History hypertension Medical HistoryOSA. hypertensionMedical HistoryOSAMedical HistoryObesityMedical HistorydiabetesMedical HistoryLower extremity edemaSurgical Historycarpal tunnel [id number] [facility] Macrotherapy Other Hiscfzc general Narrative - Reported* Type Description Date Medical History hypertension Medical HistoryOSAMedical HistoryObesityMedical HistorydiabetesMedical History Lower extremity edemaSurgical Historycarpal tunnel [id number] [facility] Macrotherapy Other Hospital Discharge instructionsAmbulatory Orders* Referral to ENT Time Frame: 12/11/23, Location: None [facility] Work Phone: Hospital Discharge instructionsAmbulatory Orders* Referral to Psychiatry Time Frame: 10/03/24, Location: None [facility] Work Phone: Hospital Discharge instructionsAmbulatory Orders* Referral to Hematology Time Frame: 02/10/25, Location: None [facility] Work Phone: InstructionsNot on filedocumented in this encounter [facility]Not on filedocumented in this encounter [facility] SystemInstructionsNot on filedocumented in this encounter [facility]* Attachments The following attachments cannot be sent through Care Everywhere. * Calcium and vitamin D for bone health ([place]) * Mammogram ([place]) * Deciding to have a hysterectomy ([place]) * Endometrial ablation ([place]) [facility] SystemReason for referral (narrative)No reason for referral information availableMer[facility] Work Phone: Summary Purpose Family History Relationship Condition Age at Onset Recorded Date/T renan father Hypertension Unknown History of obstructive sleep apneaUnknownHeart diseaseUnknownNot Specified History of malignant neoplasm of skinUnknownMalignant neoplasmUnknownsister HypothyroidismUnknown Relationship Condition Age at Onset Recorded Date/T renan father Hypertension Unknown History of obstructive sleep apneaUnknownHeart diseaseUnknownmotherHistory of malignant neoplasm of skinUnknownMalignant neoplasmUnknownsisterHypothyroidism Unknown Relationship Condition Age at Onset Recorded Date/T renan father Hypertension Unknown History of obstructive sleep apneaUnknownHeart diseaseUnknownOverweightUnknown motherHistory of malignant neoplasm of skinUnknownMalignant neoplasmUnknown Mental health problemUnknownsisterHypothyroidismUnknownHistory of gastric bypass UnknowndaughterAdopted childUnknown Advance Directives Advance Directive Response Recorded Date/ Time Advance Directives No August 02, 2020 11:16am Advance Directive Response Recorded Date/ Time Advance Directives No August 02, 2020 10:16am Date ActivatedDate InactivatedComments02/25/2017 11:52 AM02/26/2017 9:59 PMDate ActivatedDate InactivatedComments02/25/2017 11:52 AM02/26/2017 9:59 PM Chief Complaint and Reason for Visit Chief Complaint LABS R61 J06.9 Chief Complaint LABS R61 J06.9 r01.1 Chief Complaint cough, congestion Chief Complaint cough, congestion brandon/colin/msc Chief Complaint Amb Documentation stomach issuesReason for VisitAnemia Glaucoma Type II diabetes mellitus Chief Complaint stomach issues DizzinessReason for VisitAnemia Gastroenteritis Glaucoma Type II diabetes mellitus Chief Complaint stomach issues Dizziness vertigo, diarrheaReason for VisitAnemia Gastroenteritis Glaucoma Type II diabetes mellitus BPV (benign positional vertigo) Nausea Chief Complaint stomach issues Dizziness vertigo, diarrhea not feeling betterReason for VisitAnemia Gastroenteritis Glaucoma Type II diabetes mellitus BPV (benign positional vertigo) BPV (benign positional vertigo) Nausea BPV (benign positional vertigo) Headache Nausea Visual changes Chief Complaint stomach issues Dizziness vertigo, diarrhea not feeling better headacheReason for VisitAnemia Gastroenteritis Glaucoma Type II diabetes mellitus BPV (benign positional vertigo) BPV (benign positional vertigo) Nausea BPV (benign positional vertigo) Headache Nausea Visual changes Chief Complaint headache dizzinessReason for VisitHeadache Chief Complaint Admit Date dizziness April 01, 2024 10 :55am ear pain, sore throat, headache May 13, 2024 1:01pm Reason for Visit Admit Date BPV (benign positional vertigo) April 01, 2024 10:55am Chief Complaint Admit Date ENT f/u August 19, 2024 2:59pm Chief Complaint Admit Date ENT f/u August 19, 2024 2:59pm FMLA September 12, 2024 8:5 6am Reason for Visit Admit Date BPV (benign positional vertigo) August 19, 2024 2:59pm Type II diabetes mellitus August 19, 2024 2:59pm Chief Complaint Admit Date ENT f/u August 19, 2024 2:59pm FMLA September 12, 2024 8:5 6am anxiety October 03, 2024 11: 01am Reason for Visit Admit Date BPV (benign positional vertigo) August 19, 2024 2:59pm Type II diabetes mellitus August 19, 2024 2:59pm BPV (benign positional vertigo) September 122024 8:56am Generalized anxiety disorder October 03, 2024 11:01am Chief Complaint Admit Date ENT f/u August 19, 2024 2:59pm FMLA September 12, 2024 8:5 6am anxiety October 03, 2024 11: 01am f/u after ENT October 16, 2024 9:4 2am Reason for Visit Admit Date BPV (benign positional vertigo) August 19, 2024 2:59pm Type II diabetes mellitus August 19, 2024 2:59pm BPV (benign positional vertigo) September 122024 8:56am BPV (benign positional vertigo) October 032024 11:01am Generalized anxiety disorder October 03, 2024 11:01am Chief Complaint Admit Date anxiety October 03, 2024 11: 01am f/u after ENT October 16, 2024 9:4 2am November 13, 2024 11:44 am diarrhea December 25, 2024 11:03 am Reason for Visit Admit Date BPV (benign positional vertigo) October 032024 11:01am Generalized anxiety disorder October 03, 2024 11:01am Active cochlear Meniere disease of right ear October 16, 2024 9:42am Chief Complaint Admit Date November 13, 2024 11:44 am diarrhea December 25, 2024 11:03 am Right leg pain February 06, 2025 3: 34pm Reason for Visit Admit Date Diarrhea in adult patient December 25, 2024 11:03am Chief Complaint Admit Date November 13, 2024 11:44 am diarrhea December 25, 2024 11:03 am Right leg pain February 06, 2025 3: 34pm Amb Documentation February 07, 2025 8: 23am Vertigo/[facility] f/u February 10, 2025 9: 43am Reason for Visit Admit Date Diarrhea in adult patient December 25, 2024 11:03am Anemia February 10, 2025 9: 43am Chief Complaint Admit Date diarrhea December 25, 2024 11:03 am Right leg pain February 06, 2025 3: 34pm Amb Documentation February 07, 2025 8: 23am Vertigo/[facility] ER f/u February 10, 2025 9: 43am brandon February 20, 2025 9: 03am Chief Complaint Admit Date diarrhea December 25, 2024 11:03 am Right leg pain February 06, 2025 3: 34pm Amb Documentation February 07, 2025 8: 23am Vertigo/[facility] ER f/u February 10, 2025 9: 43am brandon February 20, 2025 9: 03am ENT f/u February 25, 2025 2:16pm Reason for Visit Admit Date Diarrhea in adult patient December 25, 2024 11:03am Anemia February 10, 2025 9: 43am Active cochlear Meniere disease of right ear February 20, 2025 9:03am Hypertension February 20, 2025 9: 03am BRANDON on CPAP February 20, 2025 9: 03am Type II diabetes mellitus February 20, 2 025 9:03am BMI 50.0-59.9, adult February 20, 2025 9 :03am Chief Complaint Admit Date diarrhea December 25, 2024 11:03 am Right leg pain February 06, 2025 3: 34pm Amb Documentation February 07, 2025 8: 23am Vertigo/[facility] ER f/u February 10, 2025 9: 43am brandon February 20, 2025 9: 03am ENT f/u February 25, 2025 2:16pm Discuss Oncology Visit March 07, 2 025 1:44pm Reason for Visit Admit Date Diarrhea in adult patient December 25, 2024 11:03am Anemia February 10, 2025 9: 43am Active cochlear Meniere disease of right ear February 20, 2025 9:03am Hypertension February 20, 2025 9: 03am BRANDON on CPAP February 20, 2025 9: 03am Type II diabetes mellitus February 20, 2 025 9:03am BMI 50.0-59.9, adult February 20, 2025 9 :03am BPV (benign positional vertigo) Febembe 2024 2:16pm Menieres disease February 25, 2025 2:16pm Morbid obesity with body mas s index (BMI) of 50.0 to 59.9 in adult February 25, 2025 2:16pm Anemia March 07, 2025 1:44pm Chief Complaint Admit Date diarrhea December 25, 2024 11:03 am Right leg pain February 06, 2025 3: 34pm Amb Documentation February 07, 2025 8: 23am Vertigo/[facility] ER f/u February 10, 2025 9: 43am brandon February 20, 2025 9: 03am ENT f/u February 25, 2025 2:16pm Discuss Oncology Visit March 07 025 1:44pm REF BY DR. AHUMADA FOR IRON DEF ANEMIA Feb 9:25am Chief Complaint Admit Date diarrhea December 25, 2024 11:03 am Right leg pain February 06, 2025 3: 34pm Amb Documentation February 07, 2025 8: 23am Vertigo/[facility] ER f/u February 10, 2025 9: 43am brandon February 20, 2025 9: 03am ENT f/u February 25, 2025 2:16pm Discuss Oncology Visit March 07 025 1:44pm REF BY DR. AHUMADA FOR IRON DEF ANEMIA Feb 9:25am r11.0 March 15, 2025 8:06am Reason for Visit Admit Date Diarrhea in adult patient December 25, 2024 11:03am Anemia February 10, 2025 9: 43am Active cochlear Meniere disease of right ear February 20, 2025 9:03am Hypertension February 20, 2025 9: 03am BRANDON on CPAP February 20, 2025 9: 03am Type II diabetes mellitus February 20, 025 9:03am BMI 50.0-59.9, adult February 20, 2025 9 :03am BPV (benign positional vertigo) Febembe 2024 2:16pm Menieres disease February 25, 2025 2:16pm Morbid obesity with body mas s index (BMI) of 50.0 to 59.9 in adult February 25, 2025 2:16pm Anemia March 07, 2025 1:44pm Iron deficiency anemia March 14 025 9:25am Chief Complaint Admit Date Right leg pain February 06, 2025 3: 34pm Amb Documentation February 07, 2025 8: 23am Vertigo/[facility] f/u February 10, 2025 9: 43am brandon February 20, 2025 9: 03am ENT f/u February 25, 2025 2:16pm Discuss Oncology Visit March 07 1:44pm REF BY DR. AHUMADA FOR IRON DEF ANEMIA Feb 9:25am r11.0 March 15, 2025 8:06am Dizziness/Return to Work April 03 1:45pm Reason for Visit Admit Date Anemia February 10, 2025 9: 43am Active cochlear Meniere disease of right ear February 20, 2025 9:03am Hypertension February 20, 2025 9: 03am BRANDON on CPAP February 20, 2025 9: 03am Type II diabetes mellitus February 20 9:03am BMI 50.0-59.9, adult February 20, 2025 9 :03am [facility]ign [facility]igo[facility] Menieres disease February 25, 2025 2:16pm Morbid obesity with body mas s index (BMI) of 50.0 to 59.9 in adult February 25, 2025 2:16pm Anemia March 07, 2025 1:44pm BPV (benign positional vertigo) [facility] 1:[facility] Generalized anxiety disorder February 242024 1:44pm Menieres disease March 07, 2025 1:44pm Morbid obesity with body mas s index (BMI) of 50.0 to 59.9 in adult March 07, 2025 1:44pm Iron deficiency anemia March 14 9:25am Dyspnea on exertion April 03, 2025 1: 45pm Chief Complaint Admit Date Right leg pain February 06, 2025 3: 34pm Amb Documentation February 07, 2025 8: 23am Vertigo/[facility] f/u February 10, 2025 9: 43am brandon February 20, 2025 9: 03am ENT f/u February 25, 2025 2:16pm Discuss Oncology Visit March 07 1:44pm [facility] 9[facility]25[facility] r11.0 March 15, 2025 8:06am Dizziness/Return to Work April 03 [facility] April 07, 2025 1 0:38am Reason for Visit Admit Date Anemia February 10, 2025 9: 43am Active cochlear Meniere disease of right ear February 20, 2025 9:03am Hypertension February 20, 2025 9: 03am BRANDON on CPAP February 20, 2025 9: 03am Type II diabetes mellitus February 20, 025 9:03am BMI 50.0-59.9, adult February 20, 2025 9 :03am BPV (benign positional vertigo) [facility] 2:[facility] Menieres disease February 25, 2025 2:16pm Morbid obesity with body mas s index (BMI) of 50.0 to 59.9 in adult February 25, 2025 2:16pm BPV (benign positional vertigo) [facility] 2024 1:44pm Generalized anxiety disorder February 242024 1:44pm [...] 2025 1 0:38am Dietary surveillance and counseling Maro 2024 10:38am Exercise counseling April 07, 2025 1 0:38am Generalized anxiety disorder March 10:38am GERD (gastroesophageal reflux disease) O ctober 2024 10:38am Glaucoma April 07, 2025 1 0:38am History of kidney stones April 07 025 10:38am Hypertension April 07, 2025 1 0:38am Iron deficiency anemia April 07 10:38am Menieres disease April 07, 2025 1 0:38am BRANDON on CPAP April 07, 2025 1 0:38am Type II diabetes mellitus April 07, 2025 10:38am Chief Complaint Admit Date Right leg pain February 06, 2025 3: 34pm Amb Documentation February 07, 2025 8: 23am Vertigo/[facility] ER f/u February 10, 2025 9: 43am brandon February 20, 2025 9: 03am ENT f/u February 25, 2025 2:16pm Discuss Oncology Visit March 07 025 1:44pm REF BY DR. AHUMADA FOR IRON DEF ANEMIA Feb 9:25am r11.0 March 15, 2025 8:06am Dizziness/Return to Work April 03 1:45pm [facility] ([facility]) April 07, 2025 1 0:38am brandon/ 2 month follow up/ new machine Maro 2024 8:55am Chief Complaint Admit Date Right leg pain February 06, 2025 3: 34pm Amb Documentation February 07, 2025 8: 23am Vertigo/[facility] ER f/u February 10, 2025 9: 43am brandon February 20, 2025 9: 03am ENT f/u February 25, 2025 2:16pm Discuss Oncology Visit March 07 025 1:44pm REF BY DR. AHUMADA FOR IRON DEF ANEMIA Feb 9:25am r11.0 March 15, 2025 8:06am Dizziness/Return to Work April 03 1:45pm [facility] ([place]) April 07, 2025 1 0:38am brandon/ 2 month follow up/ new machine Octo jamar th, 2025 8:55am Discuss Meds, A1C April 28, 2025 1 :01pm Reason for Visit Admit Date Anemia February 10, 2025 9: 43am Active cochlear Meniere disease of right ear February 20, 2025 9:03am Hypertension February 20, 2025 9: 03am BRANDON on CPAP February 20, 2025 9: 03am Type II diabetes mellitus February 20, 2 025 9:03am BMI 50.0-59.9, adult February 20, 2025 9 :03am BPV (benign positional vertigo) [facility] 2:[facility] Menieres disease February 25, 2025 2:16pm Morbid obesity with body mas s index (BMI) of 50.0 to 59.9 in adult February 25, 2025 2:16pm BPV (benign positional vertigo) [facility] 1:44pm Generalized anxiety disorder February 242024 1:44pm Menieres disease March 07, 2025 1:44pm Morbid obesity with body mas s index (BMI) of 50.0 to 59.9 in adult March 07, 2025 1:44pm Anemia March 07, 2025 1:44pm Iron deficiency anemia March 14, 025 9:25am BPV (benign positional vertigo) April [...] 1 0:38am Dietary surveillance and counseling Octo jamar 2024 10:38am Exercise counseling April 07, 2025 1 0:38am Generalized anxiety disorder March 10:38am GERD (gastroesophageal reflux disease) O ctober 2024 10:38am Glaucoma April 07, 2025 1 0:38am History of kidney stones April 07 2 025 10:38am Hypertension April 07, 2025 [...] BMI 50.0-59.9, adult April 23, 2025 8:55am Chief Complaint Admit Date Right leg pain February 06, 2025 3: 34pm Amb Documentation February 07, 2025 8: 23am Vertigo/[facility] f/u February 10, 2025 9: 43am brandon February 20, 2025 9: 03am ENT f/u February 25, 2025 2:16pm Discuss Oncology Visit March 07 1:44pm REF BY DR. AHUMADA FOR IRON DEF ANEMIA Sep 2024 9:25am r11.0 March 15, 2025 8:06am Dizziness/Return to Work April 03 1:45pm [facility] ([facility]) April 07, 2025 1 0:38am brandon/ 2 month follow up/ new machine Octo 2024 8:55am Discuss Meds, A1C April 28, 2025 1 :01pm 6wk F/U ELAYNE April 29, 2025 1 :25pm Reason for Visit Admit Date Anemia February 10, 2025 9: 43am Active cochlear Meniere disease of right ear February 20, 2025 9:03am Hypertension February 20, 2025 9: 03am BRANDON on CPAP February 20, 2025 9: 03am Type II diabetes mellitus February 20, 025 9:03am BMI 50.0-59.9, adult February 20, 2025 9 :03am BPV (benign positional vertigo) 2024 2:16pm Menieres disease February 25, 2025 2:16pm Morbid obesity with body mas s index (BMI) of 50.0 to 59.9 in adult February 25, 2025 2:16pm BPV (benign positional vertigo) [facility] 1:[facility] Generalized anxiety disorder February 242024 1:44pm Menieres disease March 07, 2025 1:44pm Morbid obesity with body mas s index (BMI) of 50.0 to 59.9 in adult March 07, 2025 1:44pm Anemia March 07, 2025 1:44pm Iron deficiency anemia March 14 9:25am BPV (benign positional vertigo) April 03, [...] 2025 8:55am GERD (gastroesophageal reflux disease) N ov2024 1:01pm Morbid obesity with body mas s index (BMI) of 50.0 to 59.9 in adult April 28, 2025 1:01pm BRANDON on CPAP April 28, 2025 1 :01pm Type II diabetes mellitus April 28, 2025 1:01pm Additional Source Comments INFORMATION SOURCE (unrecogn ized section and content) DATE CREATED AUTHOR 07/12/2021 [facility] DATE CREATED AUTHOR AUTHOR'S ORGANIZ ATION 12/15/2021 [facility] DATE CREATED AUTHOR AUTHOR'S ORGANIZ ATION 03/29/2022 [facility] DATE CREATED AUTHOR AUTHOR'S ORGANIZ ATION 07/31/2024 [facility] DATE CREATED AUTHOR AUTHOR'S ORGANIZ ATION 03/19/2025 [facility] DATE CREATED AUTHOR AUTHOR'S ORGANIZ ATION 04/08/2025 [facility] DATE CREATED AUTHOR AUTHOR'S ORGANIZ ATION 04/17/2025 [facility] DATE CREATED AUTHOR AUTHOR'S ORGANIZ ATION 05/08/2025 [facility] EPIC REASON FOR VISIT (unrecogniz ed section and content) ReasonCommentsVertigoAudio 02/21/24ReasonCommentsDizzinessSpecialtyDiagnoses / ProceduresReferred By ContactReferred To Contact Diagnoses Dizziness and giddiness Procedures Videonystagmography (Audiology) Liam Waggoner MD [address] [place] [address] Phone: tel: fax: Referral IDStatusReasonStart DateExpiration DateVisits RequestedVisits [id number] [id number] Loss Follow up [facility] 07/29/24ReasonCommentsEar Problem6 week low sodiumReasonComments Meniere'sDizzinessSpecialtyDiagnoses / ProceduresReferred By ContactReferred To ContactOtolaryngology Diagnoses Meniere's disease of right ear Benign paroxysmal vertigo of right ear April Ahumada MD [address] [place] [address] Phone: tel: fax: Dominique Pond MD [address] [address] Phone: tel: fax: Referral IDStatusReasonStart DateExpiration DateVisits RequestedVisits [id number] Review Specialty Services Required /[id number] NjjtMuwusgrzKwkmosmk08/26/2025ReasonComments Gynecologic ExamPatient presents for their annual well woman exam.ReasonComments Follow-upReasonCommentsMenorrhagia Care Teams (unrecognized sec tion and content) Team Status: Active Member Role Status Dates April Ahumada MD Primary Care Provider Active Team Status: Inactive Member Role Status Dates April Ahumada MD Primary Care Provider Active Start: December 25, 2024 End: December 25, 2024Keith Delcid ProviderActiveStart: December 25, 2024 End: December 25, 2024 Team Status: Inactive Member Role Status Dates April Ahumada MD Primary Care Provider Active Start: February 06, 2025 End: February 06KELTON Goodson-Raz ProviderActiveStart: February 06, 2025 End: February 06, 2025 Team Status: Active Member Role Status Dates April Ahumada MD Primary Care Provider Active Start: February 07, 2025 Regan Francois ProviderActiveStart: February 07, 2025 Team Status: Inactive Member Role Status Dates April Ahumada MD Primary Care Provider Active Start: February 10, 2025 End: February 10, 2025Keith Delcid ProviderActiveStart: February 10, 2025 End: February 10, 2025 Team Status: Inactive Member Role Status Dates April Ahumada MD Primary Care Provider Active Start: February 20, 2025 End: February 20Mayra Bowen ProviderActiveStart: February 20, 2025 End: February 20, 2025 Team Status: Active Member Role Status Dates April Ahumada MD Primary Care Provider Active Start: November 13, 2024 Mendez Doherty MDAttending ProviderActiveStart: November 13, 2024 Team Status: Active Member Role Status Dates Services Family Health Primary Care Provider Active Team Status: Active Member Role Status Dates Services Family Health Primary Care Provider Active Start: August 14, 2023 CINTHYA WilkinsAAtpriscilla ProviderActiveStart: August 14, 2023 Team Status: Inactive Member Role Status Dates Services Family Health Primary Care Provider Active Start: November 02, 2023 End: November 02, 2023Keith Delcid ProviderActiveStart: November 02, 2023 End: November 02, 2023 Team Status: Inactive Member Role Status Dates Gris Phillip DO RES Attending Provider Active PHYSICIAN NO FAMILYPrimary Care ProviderActive Team Status: Inactive Member Role Status Dates Services Family Health Primary Care Provider Active Keith Hinson ProviderActiveAdry Crockett MD RESOther ProviderActive Team Status: Inactive Member Role Status Dates Services Family Health Primary Care Provider Active Eber Valladares ProviderActive Team Status: Active Member Role Status Dates PHYSICIAN NO FAMILY Primary Care Provider Active Team Status: Inactive Member Role Status Dates Say Anderson DO Attending Provider Active Adry Crockett MD RESReferring ProviderActiveSerrox[facility] Family HealthPrimary Care ProviderActive Team Status: Inactive Member Role Status Dates Services Family Health Primary Care Provider Active Terri Vance ProviderActive Team Status: Inactive Member Role Status Dates Services Family Health Primary Care Provider Active Lucie Peter ProviderActive Team Status: Inactive Member Role Status Dates April Ahumada MD Primary Care Provide r, Attending Provider Active Start: December 05, 2023 End: December 05, 2023 Team Status: Inactive Member Role Status Dates April Ahumada MD Primary Care Provide r, Attending Provider Active Start: December 11, 2023 End: December 11, 2023 Team Status: Inactive Member Role Status Dates April Ahumada MD Primary Care Provide r, Attending Provider Active Start: December 19, 2023 End: December 19, 2023 Team Status: Inactive Member Role Status Dates April Ahumada MD Primary Care Provide r, Attending Provider Active Start: January 03, 2024 End: January 03, 2024 Team Status: Inactive Member Role Status Dates April Ahumada MD Primary Care Provide r, Attending Provider Active Start: April 01, 2024 End: April 01, 2024Team MemberRelationshipSpecialtyStart DateEnd Date April Ahumada MD [address] [place] [phone] PCP - GeneralFamily Medicine12/13/23Team MemberRelationshipSpecialtyStart DateEnd Date April Ahumada MD [address] [place] [phone] PCP - GeneralFamily Medicine12/13/23 Team Status: Inactive Member Role Status Dates April Ahumada MD Primary Care Provide r, Attending Provider Active Start: May 13, 2024 End: May 13, 2024Team MemberRelationshipSpecialtyStart DateEnd Date April Ahumada MD [address] [place] [phone] PCP - GeneralFamily Medicine12/13/23Team MemberRelationshipSpecialtyStart DateEnd Date April Ahumada MD [address] [facility] [place] [phone] PCP - GeneralFamily Medicine12/13/23Team MemberRelationshipSpecialtyStart DateEnd Date April Ahumada MD [address] [facility] [place] [address] PCP - GeneralFamily Medicine06/30/23Team MemberRelationshipSpecialtyStart DateEnd Date April Ahumada MD [address] [place] [facility] [place] [phone] [facility] - [facility]12/13/23Team MemberRelationshipSpecialtyStart DateEnd Date Aprli Ahumada MD [address] [place] [facility] [place] [phone] [facility]12/13/23 Team Status: Inactive Member Role Status Dates April Ahumada MD Primary Care Provide r, Attending Provider Active Start: August 19, 2024 End: August 19, 2024 Team Status: Inactive Member Role Status Dates April Ahumada MD Primary Care Provide r, Attending Provider Active Start: September 12, 2024 End: September 12, 2024 Team Status: Inactive Member Role Status Dates April Ahumada MD Primary Care Provide r, Attending Provider Active Start: October 03, 2024 End: October 03, 2024Team MemberRelationshipSpecialtyStart DateEnd Date April Ahumada MD [address] [place] [facility] [place] [phone] [facility]10/08/24Team MemberRelationshipSpecialtyStart DateEnd Date April Ahumada MD [address] [place] [facility] [place] [phone] [facility]10/08/24 Team Status: Inactive Member Role Status Dates April Ahumada MD Primary Care Provide r, Attending Provider Active Start: October 16, 2024 End: October 16, 2024 Team Status: Inactive Member Role Status Dates April hAumada MD Primary Care Provider Active Start: October 03, 2024 End: October 03, 2024April Ahumada MDAttunc health rex ProviderActiveStart: October 03, 2024 End: October 03, 2024 Team Status: Inactive Member Role Status Dates April Ahumada MD Primary Care Provider Active Start: October 16, 2024 End: October 16, 2024Keith Delcid ProviderActiveStart: October 16, 2024 End: October 16, 2024Team MemberRelationshipSpecialtyStart DateEnd Date April Ahumada MD [address] [place], [place] [phone] PCP - GeneralFamily Medicine06/30/23Team MemberRelationshipSpecialtyStart DateEnd Date April Ahumada MD [address] [place], [place] [phone] PCP - GeneralFamily Medicine06/30/23Team MemberRelationshipSpecialtyStart DateEnd Date April Ahumada MD [address] [place] [address] PCP - GeneralFamily Medicine06/30/23 Team Status: Inactive Member Role Status Dates April Ahumada MD Primary Care Provider Active Start: February 25, 2025 End: February 25, 2025Keith Delcid ProviderActiveStart: February 25, 2025 End: February 25, 2025 Team Status: Active Member Role Status Dates April Ahumada MD Primary Care Provider Active Start: March 04, 2025 Keith Harris ProviderActiveStart: March 04, 2025 Team Status: Inactive Member Role Status Dates April Ahumada MD Primary Care Provider Active Start: March 07, 2025 End: March 07, 2025Keith Delcid ProviderActiveStart: March 07, 2025 End: March 07, 2025 Team Status: Inactive Member Role Status Dates April Ahumada MD Primary Care Provider Active Start: March 14, 2025 End: March 14, 2025Eber Serrano ProviderActiveStart: March 14, 2025 End: March 14, 2025 Team Status: Inactive Member Role Status Dates April Ahumada MD Primary Care Provider Active Start: March 15, 2025 End: March 15, 2025Eber Serrano ProviderActiveStart: March 15, 2025 End: March 15, 2025Team MemberRelationshipSpecialtyStart DateEnd Date April Ahumada MD [address] [place], [place] [phone] PCP - [facility]03/03/25 Team Status: Inactive Member Role Status Dates April Ahumada MD Primary Care Provider Active Start: April 03, 2025 End: April 03, 2025April Ahumada MDAttcasper ProviderActiveStart: April 03, 2025 End: April 03, 2025 Team Status: Inactive Member Role Status Dates April Ahumada MD Primary Care Provider Active Start: April 07, 2025 End: April 07, 2025Brigitte Busch DNPAttending ProviderActiveStart: April 07, 2025 End: April 07, 2025Team MemberRelationshipSpecialtyStart DateEnd Date April Ahumada MD [address] [place] [address] [facility]03/03/25 Team Status: Active Member Role/Relationship Status Dates April Ahumada MD Primary Care Provider Active Team Status: Inactive Member Role/Relationship Status Dates April Ahumada MD Primary Care Provider Active Start: February 06, 2025 End: February 06Medardo Goodson ProviderActiveStart: February 06, 2025 End: February 06, 2025 Team Status: Active Member Role/Relationship Status Dates April Ahumada MD Primary Care Provider Active Start: February 07, 2025 Imelda Hutchins CMAAttunc health rex ProviderActiveStart: February 07, 2025 Team Status: Inactive Member Role/Relationship Status Dates April Ahumada MD Primary Care Provider Active Start: February 10, 2025 End: February 10, 2025April Ahumada MDAttending ProviderActiveStart: February 10, 2025 End: February 10, 2025 Team Status: Inactive Member Role/Relationship Status Dates April Ahumada MD Primary Care Provider Active Start: February 20, 2025 End: February 20HERMAN BowenCAttending ProviderActiveStart: February 20, 2025 End: February 20, 2025 Team Status: Inactive Member Role/Relationship Status Dates April Ahumada MD Primary Care Provider Active Start: February 25, 2025 End: February 25, 2025April Ahumada MDAttending ProviderActiveStart: February 25, 2025 End: February 25, 2025 Team Status: Active Member Role/Relationship Status Dates April Ahumada MD Primary Care Provider Active Start: March 04, 2025 Ely Dodge MDAttending ProviderActiveStart: March 04, 2025 Team Status: Inactive Member Role/Relationship Status Dates April Ahumada MD Primary Care Provider Active Start: March 07, 2025 End: March 07, 2025April Ahumada MDAttending ProviderActiveStart: March 07, 2025 End: March 07, 2025 Team Status: Inactive Member Role/Relationship Status Dates April Ahumada MD Primary Care Provider Active Start: March 14, 2025 End: March 14, 2025Derjoby Ferguson , APRNAttending ProviderActiveStart: March 14, 2025 End: March 14, 2025 Team Status: Inactive Member Role/Relationship Status Dates April Ahumada MD Primary Care Provider Active Start: March 15, 2025 End: March 15, 2025Adonis Ferguson APRNAttending ProviderActiveStart: March 15, 2025 End: March 15, 2025 Team Status: Inactive Member Role/Relationship Status Dates April Ahumada MD Primary Care Provider Active Start: April 03, 2025 End: April 03, 2025April Ahumada MDAttending ProviderActiveStart: April 03, 2025 End: April 03, 2025 Team Status: Inactive Member Role/Relationship Status Dates April Ahumada MD Primary Care Provider Active Start: April 07, 2025 End: April 07, 2025Brigitte Busch DNPAttending ProviderActiveStart: April 07, 2025 End: April 07, 2025 Team Status: Active Member Role/Relationship Status Dates April Ahumada MD Primary Care Provider Active Start: April 21, 2025 Elyjoana Dodge NIRALIttending ProviderActiveStart: April 21, 2025 Team Status: Inactive Member Role/Relationship Status Dates April Ahumada MD Primary Care Provider Active Start: April 23, 2025 End: April 23HERMAN BowenCAttending ProviderActiveStart: April 23, 2025 End: April 23, 2025 Team Status: Inactive Member Role/Relationship Status Dates April Ahumada MD Primary Care Provider Active Start: April 28, 2025 End: April 28, 2025April Ahumada MDAttcasper ProviderActiveStart: April 28, 2025 End: April 28, 2025 Team Status: Inactive Member Role/Relationship Status Dates April Ahumada MD Primary Care Provider Active Start: April 29, 2025 End: April 29, 2025Adonis Ferguson APRNAttending ProviderActiveStart: April 29, 2025 End: April 29, 2025Team MemberRelationshipSpecialtyStart DateEnd Date April Ahumada MD [address] [place] [address] [facility]10/08/24Team MemberRelationshipSpecialtyStart DateEnd Date April Ahumada MD [address] [place] [address] PCP - GeneralFamily Medicine10/08/24 Goals (unrecognized section and content) Goals may be documented in a n alternate section FOR RECORDS PERTAINING TO PATIENTS WHO ARE OR HAVE BEEN ENROLLED IN A CHEMICAL DEPENDENCY/SUBSTANCEABUSE PROGRAM, SOME INFORMATION MAY BE OMITTED. This clinical summary was aggregated from multiple sources. Caution should be exercised in using it in the provision of clinical care. This summary normalizes information from multiple sources, and as a consequence, information in this document may materially change the coding, format and clinical context of patient data. In addition, data may be omitted in some cases. CLINICAL DECISIONS SHOULD BE BASED ON THE PRIMARY CLINICAL RECORDS. [facility] [employer] [facility]. provides no warranty or guarantee of the accuracy or completeness of information in this document.
[2025-06-03 09:59] LABS: Anion Gap 13.4; Blood Urea Nitrogen 14.0 mg/dL (7.0-18.0); Calcium 9.1 mg/dL (8.5-10.1); Carbon Dioxide 27.4 mmol/L (21.0-32.0); Chloride 104 mmol/L (98-107); Estimated GFR (African America >60 (>=60 mL/min/1.73m^2); Estimated GFR (Non-African Ame >60 (>=60 mL/min/1.73m^2); Glucose 151 mg/dL (74-106); Potassium 3.8 mmol/L (3.5-5.1); Sodium 141 mmol/L (136-145)
[2025-06-03 10:10] LABS: Hematocrit 38.3 % (36.0-48.0); Hemoglobin 12.4 g/dL (12.0-16.0); Immature Granulocytes Abs Auto 0.02 10^3/uL (0.00-0.03); Immature Granulocytes Pct Auto 0.3 % (0.0-0.5); Lymphocytes Absolute Auto 1.1 10^3/uL (1.2-3.8); Mean Corpuscular HGB Conc 32.4 g/dL (29.9-35.2); Mean Corpuscular Hemoglobin 27.4 pg (26.7-34.0); Mean Corpuscular Volume 84.7 fL (81.0-99.0); Platelet Count 161 10^3/uL (150-450); Red Blood Count 4.52 10^6/uL (4.20-5.40); White Blood Count 6.7 10^3/uL (4.0-11.0)
[2025-06-03 10:32] LABS: Iron 41.0 ug/dL (50.0-170.0); Percent Iron Saturation 13.3 %; Total Iron Binding Capacity 308.0 ug/dL (250.0-450.0)
[2025-06-03 11:04] LABS: Ferritin 64.0 ng/mL (8.0-252.0)
== END 2025-06-03 09:06 | disposition home or self-care (01) ==
LOC: LAB 09:07
PROVIDERS: PCP Family Medicine; Visit Provider Internal Medicine Hematology & Oncology
DX: D64.9 Anemia, unspecified (principal); D50.9 Iron deficiency anemia, unspecified; K90.9 Intestinal malabsorption, unspecified
CPT/HCPCS: 36415; 80048; 82728; 83540; 83550; 85025

== ENCOUNTER 2025-06-11 13:13 | Outpatient (REF) | payer MEDICAID, SELFPAY ==
--- OUTSIDE RECORDS SUMMARY | 2025-06-11 13:30 | XMS_ITS | Encounter Summary ---
Author Organization [facility] Address [address] [place] [address] Care Team Providers Care Toppiece Cutter Name Role Phone Evelina Mera MD Primary Care Provider [phone] Reason for Visit * ReasonCommentsPre-op VisitEndometrial Biopsy Encounter Details DateTypeDepartmentCare Team (Latest Contact Info)Llwbybxeexf38/17/2025 1:30 PM ESTProcedure Visit [facility] [address] [place] [address] David Villeda DO [address] [facility] [address] [place] [place], [place] [id number] Pre-op examination; Menorrhagia with regular cycle; Pelvic pain in female; Abnormal uterine bleeding Social History Tobacco UseTypesPacks/DayYears UsedDateSmoking Tobacco: NeverSmokeless Tobacco: NeverAlcohol UseStandard Drinks/WeekCommentsNot Currently0 (1 standard drink = 0.6 oz pure alcohol)CommentsNoSex and Gender InformationValueDate RecordedSex Assigned at BirthNot on fileLegal WxmKgfklo44/15/2023 6:56 PM EDT Gender IdentityNot on fileSexual OrientationNot on filedocumented as of this encounter Last Filed Vital Signs Vital SignReadingTime TakenCommentsBlood Purhuagg133/7406/11/2025 1:36 PM EST Pulse--Temperature--Respiratory Rate--Oxygen Saturation--Inhaled Oxygen Concentration--Vtmavk737 kg (365 lb)06/11/2025 1:36 PM ESTHeight--Body Mass Index58.9105/07/2025 11:17 AM ESTdocumented in this encounter Progress Notes * Vaishnavi Russo - 06/11/2025 1:30 PM ESTAssociated Order(s): Endometrial biopsy Pre-Procedure Diagnose(s): Menorrhagia with regular cycle; Pelvic pain in female; Abnormal uterine bleeding Post-Procedure Diagnose(s): Menorrhagia with regular cycle; Pelvic pain in female; Abnormal uterinebleeding Patient ID: Nati Santos is a 40 y.o. female who presents for Pre-op Visit and Endometrial Biopsy Reason for Appointment: Patient presents today for a Pre Op/Endometrial Biopsy appointment. Patient is scheduled to undergoEndometrial Ablation with Winter on 07/11/[address] Villeda at [facility]. appointment. MEDICATIONS Current Outpatient Medications Medication Instructions [...] History: Procedure Laterality Date CARPAL TUNNEL RELEASE SECTION, LOW TRANSVERSE 2005 REVIEW OF SYSTEMS Review of Systems: Review of Systems Constitutional: Negative. HENT: Negative. Eyes: Negative. Respiratory: Negative. Cardiovascular: Negative. Gastrointestinal: Negative. Genitourinary: Positive for menstrual problem and pelvic pain. Musculoskeletal: Negative. Skin: Negative. Neurological: Negative. All other systems reviewed and are negative. Hematological: Negative. Endocrine: Negative. Allergic/Immunologic: Negative. OBJECTIVE Objective: Physical Exam Constitutional: Appearance: Normal appearance. She is well-developed. Genitourinary: Vulva normal. Cardiovascular: Rate and Rhythm: Normal rate and [...] nursing note reviewed. Exam conducted with a advanced practice psychiatric nurse present. Vitals: Estimated body mass index is 58.72 kg/m?? as calculated from the following: Height as of 05/07/25: 5' 6 . Weight as of 05/07/25: 363 lb 12.8 oz. BP: No LMP recorded. ASSESSMENT & PLAN Encounter Diagnosis: ICD-10-CM 1. Pre-op examination Z01.818 2. Menorrhagia with regular cycle N92.0 3. Pelvic pain in female R10.20 4. Abnormal uterine bleeding N93.9 Endometrial biopsy Date/Time: 06/11/2025 2:03 PM Performed by: David Villeda DO Authorized by: David Villeda DO Consent: Consent obtained: written Consent given by: patient Risks discussed: bleeding and infection Alternatives discussed: alternative treatment Indications: Indications: abnormal uterine bleeding Pre-procedure: Urine test: negative Procedure: Prepped with: none Tenaculum used: yes A local block was performed: no Findings: Cervix: normal Specimen collected: specimen collected and sent to pathology Patient tolerance: tolerated well, no immediate complications Comments: Procedure comments: Assessment/Plan EMBX: Patient was placed in dorsal lithotomy position with feet in stirrups. A sterile speculum was placed into the vagina and the cervix was visualized. The cervix was grasped with a single tooth tenaculum. The endometrial pipette was placed through the cervix into the uterus, endometrial curettage was performed and sampling was obtained, endometrial curettings were placed in formalin, and single tooth tenaculum was removed. Excellent hemostasis was assured. All instruments were removed from vagina. Pre Op: Patient is doing well but has complaints of bleeding and pelvic pain. Patient has tried hormone therapy in the past but all attempts to subside patients issues have failed. I have discussed conservative management vs. surgical management with the patient in detail and patient desires surgical management at this time. Patient will undergo Endometrial Ablation with Winter on 07/11/2025. Surgical consents were signed, mmc was reviewed, and patient is to proceed to [facility] OR. Follow Up: Patient is to follow up between 1-2 weeks post op to assess proper healing and recovery from procedure. Documented by Deysi Mercado LPN on behalf of: David Villeda DO documented in this encounter Plan of Treatment Not on file documented as of this encounter Procedures Procedure NamePriorityDate/TimeAssociated DiagnosisCommentsENDOMETRIAL BIOPSY Fwsrpvr4906/11/2025 2:03 PM EST Menorrhagia with regular cycle Pelvic pain in female Abnormal uterine bleeding POCT , RZPSTAtkuhbj45/17/2025 1:48 PM EST Menorrhagia with regular cycle Pelvic pain in female Abnormal uterine bleeding PAP TEST, AJBITUPWBetvprb45/02/2025 12:00 AM EDTdocumented in this encounter Results * Endometrial biopsy (06/11/2025 2:03 PM EST) Narrative Edileodan AidaCATRINA - 06/11/2025 2:03 PM EST Aida TeixeiraCATRINA 06/11/2025 2:31 PM Endometrial biopsy Date/Time: 06/11/2025 2:03 PM Performed by: David Villeda DO Authorized by: David Villeda DO ?? Consent: ??Consent obtained: written ??Consent given by: patient ??Risks discussed: bleeding and infection ??Alternatives discussed: alternative treatment Indications: ??Indications: abnormal uterine bleeding ?? Pre-procedure: ??Urine test: negative ?? Procedure: ??Prepped with: none ??Tenaculum used: yes ?A local block was performed: no ?? Findings: ??Cervix: normal ?Specimen collected: specimen collected and sent to pathology ?Patient tolerance: tolerated well, no immediate complications Comments: ??Procedure comments: Authorizing ProviderResult TypeResult StatusDavid Villeda DOIN CLINIC/BEDSIDE ORDERABLESFinal Result * POCT , urine manually resulted (06/11/2025 1:48 PM EST)ComponentValue Ref RangeTest MethodAnalysis TimePerformed AtPathologist SignaturePreg Test, UrNegativeNegativeSpecimen (Source)Anatomical Location / LateralityCollection Method / VolumeCollection TimeReceived RyuxCjtqs33/17/2025 1:48 PM EST Narrative Authorizing ProviderResult TypeResult StatusDavid Villeda DOPOINT OF CARE TEST ENTER/EDIT ORDERABLESFinal Result * PAP TEST, EXTERNAL (03/27/2025 12:00 AM EDT) Narrative Authorizing ProviderResult TypeResult StatusDavid Villeda DOLAB CYTOLOGY ORDERABLESFinal ResultPerforming OrganizationAddressCity/State/ZIP CodePhone Number EXTERNAL LAB documented in this encounter Visit Diagnoses Diagnosis Pre-op examination Menorrhagia with regular cycle Pelvic pain in female Unspecified symptom associated with female genital organs Abnormal uterine bleeding Unspecified disorder of menstruation and other abnormal bleeding from female genital tract documented in this encounter Care Teams Team MemberRelationshipSpecialtyStart DateEnd Date Evelina Mera MD [address] [place] [phone] PCP - GeneralFamily Medicine10/08/24documented as of this encounter
--- OUTSIDE RECORDS SUMMARY | 2025-06-24 13:17 | XMS_ITS | Encounter Summary ---
Author Organization [facility] Address [address] [place] [address] Care Team Providers Care Test Engineering Manager Name Role Phone Evelina Mera MD Primary Care Provider [phone] Encounter Details DateTypeDepartmentCare Team (Latest Contact Info)Dnkzjyijaag00/30/2025linisync Result Encounter [facility] Unsolicited David Villeda, DO [address] [place] [address] Social History Tobacco UseTypesPacks/DayYears UsedDateSmoking Tobacco: NeverSmokeless Tobacco: NeverAlcohol UseStandard Drinks/WeekCommentsNot Currently0 (1 standard drink = 0.6 oz pure alcohol)CommentsNoSex and Gender InformationValueDate RecordedSex Assigned at BirthNot on fileLegal RsaBzwmhd08/15/2023 6:56 PM EDT Gender IdentityNot on fileSexual OrientationNot on filedocumented as of this encounter Plan of Treatment Not on file documented as of this encounter Procedures Procedure NamePriorityDate/TimeAssociated DiagnosisCommentsALL BASIC METABOLIC GITSBSkvcgru18/30/2025 9:40 AM EST documented in this encounter Results * (ABNORMAL) ALL BASIC METABOLIC PANEL (06/24/2025 9:40 AM EST)ComponentValueRef RangeTest MethodAnalysis TimePerformed AtPathologist [id number] - 145 mmol/LTBHPOTASSIUM4.03.5 - 5.1 mmol/XBLLXOPUTUBS21391 - 107 mmol/LTBH CARBON DTIXEJA84.521.0 - 32.0 mmol/LTBHANION GAP13.7HRSWZQUZIK919(H)74 - 106 mg/dLTBHBLOOD UREA AEVZPHGE34.07.0 - 18.0 mg/dLTBHCREATININE0.760.55 - 1.02 mg/dLTBHTBH EGFR-AF BRUNEIAN>60>=60 mL/min/1.73m 2TBHTBH EGFR-NON AF BRUNEIAN >60>=60 mL/min/1.73m 2TBHBUN CREATININE RATIO15.2QNYFOHWOEQ7.38.5 - 10.1 mg/dL TBHSpecimen (Source)Anatomical Location / LateralityCollection Method / Volume Collection TimeReceived Time06/24/2025 9:40 AM EST06/24/2025 9:48 AM EST Narrative [facility] - 06/24/2025 10:05 AM EST Authorizing ProviderResult TypeResult StatusCorey Christiana DOCLINISYNCFinal Result Performing OrganizationAddressCity/State/ZIP CodePhone Number CLINISYNC TB documented in this encounter Visit Diagnoses Not on filedocumented in this encounter Care Teams Team MemberRelationshipSpecialtyStart DateEnd Date Evelina Mera MD [address] [place] [phone] PCP - GeneralFamily Medicine10/08/24documented as of this encounter
--- OUTSIDE RECORDS SUMMARY | 2025-06-24 13:17 | XMS_ITS | Clinical Summary ---
Author Organization [facility] Address [address] [place] [address] Phone Care Team Providers Care Hunting Sales Associate Name Role Phone Unavailable Primary Care Provider Unavailabl e Social History Tobacco UseTypesPacks/DayYears UsedDateSmoking Tobacco: Never Assessed CommentsUnknownSex and Gender InformationValueDate RecordedSex Assigned at Not on fileLegal LaiUscsdm94/26/2022 4:41 PM ESTGender IdentityNot on fileSexual OrientationNot on file Plan of Treatment Not on file
--- OUTSIDE RECORDS SUMMARY | 2025-06-24 13:17 | XMS_ITS | Encounter Summary ---
Author Organization [facility] Address [address] [place] [address] Care Team Providers Care Scow Captain Name Role Phone Evelina Mera MD Primary Care Provider [phone] Encounter Details DateTypeDepartmentCare Team (Latest Contact Info)Eviiehxhdyw91/29/2025bstract [facility] [address] [place] [address] David Villeda DO [address] [facility] [address] Imtiaz Sun, [facility] Social History Tobacco UseTypesPacks/DayYears UsedDateSmoking Tobacco: NeverSmokeless Tobacco: NeverAlcohol UseStandard Drinks/WeekCommentsNot Currently0 (1 standard drink = 0.6 oz pure alcohol)CommentsNoSex and Gender InformationValueDate RecordedSex Assigned at BirthNot on fileLegal PkcLkouuq17/15/2023 6:56 PM EDT Gender IdentityNot on fileSexual OrientationNot on filedocumented as of this encounter Plan of Treatment Not on file documented as of this encounter Visit Diagnoses Not on filedocumented in this encounter Care Teams Team MemberRelationshipSpecialtyStart DateEnd Date Evelina Mera MD [address] [place] [phone] PCP - GeneralFamily Medicine10/08/24documented as of this encounter
--- OUTSIDE RECORDS SUMMARY | 2025-06-24 13:17 | XMS_ITS | Clinical Summary ---
Author Organization [employer] Address [id number] [address] [place] [address] Care Team Providers Care Weather Strip Installer Name Role Phone Evelina Mera MD Primary Care Provider [phone] Allergies Active AllergyReactionsCriticalityNoted DateComments Sulfamethoxazole-JcwaircovftsWahkejxbjlrQmyf42/02/2017PenicillinsRashLow 02/25/2017Sulfa (Sulfonamide Antibiotics)VybhooazkyiZkbs36/07/2024 Other Reaction(s): Swelling of Lip/Tongue/Throat, tongue swelling Yokrdythqbmz96/10/2024 Other Reaction(s): Swelling of Lip/Tongue/Throat, tongue swelling Medications MedicationSigDispense QuantityRefillsLast FilledStart DateEnd DateStatus aspirin 81 mg chewable tablet Chew 1 tablet (81 mg total) and swallow in the morning.Active metoprolol tartrate (LOPRESSOR) 50 mg tablet Take 1 tablet (50 mg total) by mouth in the morning and 1 tablet (50 mg total) before bedtime.Active metFORMIN (GLUCOPHAGE) 500 mg tablet Take 1 tablet (500 mg total) by mouth in the morning and 1 tablet (500 mg total) before bedtime.Active furosemide (LASIX) 20 mg tablet Take 1 tablet (20 mg total) by mouth 2 (two) times a day.Active sertraline (ZOLOFT) 100 mg tablet 2Active busPIRone (BUSPAR) 5 mg tablet Take 1 tablet (5 mg total) by mouth.5Active potassium chloride (K-TAB,KLOR-CON) 10 MEQ CR tablet Take 1 tablet (10 mEq total) by mouth in the morning and 1 tablet (10 mEq total) at noon and 1 tablet (10 mEq total) in the evening. Take with meals.11/25/2024 Active olmesartan-hydroCHLOROthiazide (BENICAR HCT) 20-12.5 mg per tablet Take 1 tablet by mouth.Active atorvastatin (LIPITOR) 40 mg tablet Take 1 tablet (40 mg total) by mouth.Active topiramate (TOPAMAX) 25 mg tablet One PO qhs for 1-2 weeks then Increase BIID for another 1-2 weekd then TID for one to two week then2 tablets BID 70 tablet 1215Active Active Problems ProblemNoted DateDiagnosed DateBMI 50.0-59.9, adult03/27/20257326Mxbkra56/13/2024 Abdominal pain02/26/2017 Encounters DateTypeDepartmentCare QzskLljhpvrxrgq36/22/2025 10:27 AM EDT - 04/16/2025 11:[address] [facility] [address] [place] [phone] Trice Ramírez, TUBING DRIER-DIRECTOR [employer] INS[employer]ANCE Encounter for screening mammogram for malignant neoplasm of breast Discharge Disposition: Home04/16/2025 10:06 AM EDT - 04/16/2025 10:26 AM EDT Hospital Encounter [facility] - Ultrasound [address] [place] [phone] Trice Ramírez, TUBING DRIER-DIRECTOR [employer] INS[employer] Abnormal uterine bleeding Discharge Disposition: Home04/16/20253348Rcdhxt54/13/2025 2:15 PM EDTOffice Visit [facility] [address] [place] [address] Krish Richter MD Benign paroxysmal vertigo of right ear (Primary Dx); Meniere's disease of right ear; Dizziness; Fullness in ear, /13/1698Yhpypk30/05/2025Results Follow-Up [facility] Ob[facility]etric[facility]/Gynecology [address] [place] [address] Trice Ramírez, TUBING DRIER-DIRECTOR [employer] Thin Prep Pap Test, High risk HPV w/kael, Ultrasound pelvic with transvaginal, Additional followed-up results: 3:30 PM EDTOffice Visit [facility] [address] [place] [address] Trice Ramírez, TESHA Well woman exam with routine gynecological exam (Primary Dx); Pap smear, as part of routine gynecological examination; Standardized adult depression screening tool completed; Abnormal uterine bleeding; Encounter for screening mammogram for malignant neoplasm of ajplox1503/27/2025 Travelfrom Last 3 Months Family History Medical HistoryRelationNameCommentsBreast cancerNeg HxColon cancerNeg HxOvarian cancerNeg HxProstate cancerNeg HxUterine cancerNeg Hx Social History Tobacco UseTypesPacks/DayYears UsedDateSmoking Tobacco: NeverSmokeless Tobacco: Never Tobacco Cessation:Counseling Given: Not Answered Alcohol UseStandard Drinks/WeekCommentsNo0 (1 standard drink = 0.6 oz pure alcohol)PHQ-2AnswerDate RecordedTotal Xiadh436/02/2025ChildcareAnswerDate HwrlvrcmLdramxginHjfwuul38/12/2019EmploymentAnswerDate RecordedEmploymentUnknown 12/05/2018Hunger ScreeningAnswerDate RecordedWithin the past 12 months we worried whether our food would run out before we got money to buy more.Never True03/27/2025Within the past 12 months the food we bought just didn't last and we didn't have money to get more.Never True03/27/2025Purpose - LifeAnswerDate RecordedPurpose and direction in bgsaBhysyrb39/11/2021CommentsNoSex and Gender InformationValueDate RecordedSex Assigned at BirthNot on fileLegal Sex Bnmrpu7001/28/2015 5:45 PM EDTGender IdentityNot on fileSexual OrientationNot on file Last Filed Vital Signs Vital SignReadingTime TakenCommentsBlood Xatteidu767/7210 3:34 PM EDT Jzsjp4341 8:45 PM EBAQcmlnotajdv67.8 ??C (98.2 ??F)04/07/2025 2:46 PM EDTRespiratory Bxmm387503/03/2025 8:45 PM EDTOxygen Lnkzsimjtv929%03/03/2025 8:45 PM EDTInhaled Oxygen Concentration--Xoxhpf295.5 kg (364 lb 12.8 oz)04/07/2025 2:46 PM FLZChumtt405.6 cm (5' 6 )04/07/2025 2:46 PM EDTBody Mass Index58.88 04/07/2025 2:46 PM EDT Plan of Treatment DateTypeDepartmentCare Team (Latest Contact Info)Ghxvcsiaqzz72/03/2026 2:45 PM ESTOffice Visit [facility] [address] [place] [address] Krish Richter MD [address] [facility] [address] [place] [address] Health MaintenanceDue DateLast DoneCommentsCOVID-19 Vaccine ( season) /, 03/11/2021Influenza Zuyufij01/03/2023, 07/26/2021, 04/22/2020, Additional history existsAdult BMI Follow Up Plan Depression Cjatmdxla32Tobacco Screening dult BMI Onxvbvvpt94/7844Nsuvrrwtp94/22/2026 04/16/2025Pap Smear/07/2024, 03/27/2025DTaP,Tdap and Td Vaccines (2 - Td or Tdap) Medical Devices Not on file Procedures Procedure NamePriorityDate/TimeAssociated DiagnosisCommentsIRON AND TIBCRoutine 04/16/2025 10:53 AM EDT Abnormal uterine bleeding LZEFKXHLGfjsqyq41/22/2025 10:53 AM EDT Abnormal uterine bleeding CBC (NO DIFF)Sfinhdj3004/16/2025 10:53 AM EDT Abnormal uterine bleeding THYROID PROFILE INCLUDES TSH UJ8Iyoqvdk79/22/2025 10:53 AM EDT Abnormal uterine bleeding MAMM SCREENING BILATERAL W EJUHausyfa29/22/2025 10:46 AM EDT Encounter for screening mammogram for malignant neoplasm of breast US PELVIC WITH SKBFZIKQYVDNZtnzmzy70/22/2025 10:35 AM EDT Abnormal uterine bleeding THIN PREP PAP KJRJAezlnap60/02/2025 4:18 PM EDT Pap smear, as part of routine gynecological examination HIGH RISK HPV W/GRERNumcdpw63/02/2025 4:18 PM EDT Pap smear, as part of routine gynecological examination from Last 3 Months Results * Thyroid profile includes TSH FT4 (04/16/2025 10:53 AM EDT)ComponentValueRef RangeTest MethodAnalysis TimePerformed AtPathologist SignatureFREE T40.870.61 - 1.60 ng/dL04/16/2025 2:34 PM [facility] LABORATORYTSH3.41 0.49 - 4.67 uIU/mL04/16/2025 2:34 PM [facility] Specimen (Source)Anatomical Location / LateralityCollection Method / Volume Collection TimeReceived TimeBloodVenous blood / UnknownVenipuncture / Unknown 04/16/2025 10:53 AM EDT1 10:53 AM EDT Narrative Authorizing ProviderResult TypeResult StatusTrice Ramírez TUBING DRIER-CNPLAB BLOOD ORDERABLESFinal ResultPerforming OrganizationAddressCity/State/ZIP CodePhone Number [facility] [address] [place] [address], * (ABNORMAL) Iron and TIBC (04/16/2025 10:53 AM EDT)ComponentValueRef RangeTest MethodAnalysis TimePerformed AtPathologist CzaoobtzfCSGS89(L)50 - 170 ug/dL 04/16/2025 2:24 PM [facility] OZWUMBOJGIAVKUWHOHBTH329392 - 336 mg/dL04/16/2025 2:24 PM [facility] LABORATORYIRON BINDING 000164 - 425 ug/dL04/16/2025 2:24 PM [facility] IRON ISMRDVSRZO71(L)15 - 50 % PIGSLYMEYM87/22/2025 2:24 PM [facility] LABORATORYSpecimen (Source)Anatomical Location / LateralityCollection Method / VolumeCollection TimeReceived TimeBloodVenous blood / Unknown Venipuncture / Cuhxmkv8704/16/2025 10:53 AM EDT1 10:53 AM EDT Narrative Authorizing ProviderResult TypeResult StatusLisa M Krotzer TUBING DRIER-CNPLAB BLOOD ORDERABLESFinal ResultPerforming OrganizationAddressCity/State/ZIP CodePhone Number [facility] [address] [place] [address], * (ABNORMAL) CBC without diff (04/16/2025 10:53 AM EDT)ComponentValueRef Range Test MethodAnalysis TimePerformed AtPathologist SignatureWBC6.74 - 11 x10E9/L 04/16/2025 2:18 PM [facility] LABORATORYRBC Count5.003.8 - 5.2 X10E12/L1 2:18 PM [facility] Gecplfjfix40.411.7 - 15.5 g/dL04/16/2025 2:18 PM [facility] UKWQUZYXQOHxsrjwqyuk35.635 - 47 %04/16/2025 2:18 PM [facility] SLJFGOORJFGEE15(L)80 - 100 fL04/16/2025 2:18 PM [facility] WXHYZQHWEWGCS03.7(L)27 - 34 pg04/16/2025 2:18 PM [facility] JOPEAXODSYSKEN71.932 - 36 g/dL04/16/2025 2:18 PM [facility] UGJOASLABOBGQ23.1(H)11.5 - 15 %04/16/2025 2:18 PM [facility] LABORATORYPlatelet Kpinw350016 - 450 X10E9/L1 2:18 PM EDT [facility]ORATORYMPV8.77 - 12 fL04/16/2025 2:18 PM [facility] LABORATORYSpecimen (Source)Anatomical Location / Laterality Collection Method / VolumeCollection TimeReceived TimeBloodVenous blood / UnknownVenipuncture / Iezxxql4304/16/2025 10:53 AM EDT1 10:53 AM EDT Narrative Authorizing ProviderResult TypeResult StatusTrice Jason Miryamzer TUBING DRIER-CNPLAB BLOOD ORDERABLESFinal ResultPerforming OrganizationAddressCity/State/ZIP CodePhone Number [facility] [place] [address], * Ferritin (04/16/2025 10:53 AM EDT)ComponentValueRef RangeTest MethodAnalysis TimePerformed AtPathologist KyttbzqloQOMYWZPC4402 - 307 ng/mL04/16/2025 2:35 PM [facility] LABORATORYSpecimen (Source)Anatomical Location / LateralityCollection Method / VolumeCollection TimeReceived TimeBloodVenous blood / UnknownVenipuncture / Usiizej4304/16/2025 10:53 AM EDT1 10:53 AM EDT Narrative Authorizing ProviderResult TypeResult StatusTrice Jason Wrighttannerzer TUBING DRIER-CNPLAB BLOOD ORDERABLESFinal ResultPerforming OrganizationAddressCity/State/ZIP CodePhone Number [facility] [address] [place] [phone], * Mammography screening bilateral with CAD (04/16/2025 10:46 AM EDT)Anatomical RegionLateralityModalityBreastBilateralMammographySpecimen (Source)Anatomical Location / LateralityCollection Method / VolumeCollection TimeReceived Time 04/17/2025 12:22 PM EDT Narrative 04/17/2025 12:24 PM EDT MACKENZIE Agosto TUCKER 1985 [id number] EXAM: MAMM SCREENING BILATERAL W CAD, 04/16/2025 [...] malignancy. BI-RADS: BI-RADS 2 - Benign RECOMMENDATION: ??Routine screening mammogram in 1 year. RISK ASSESSMENT: TC Lifetime risk: 11.32%. The patient's reported personal and family medical history was used calculate their Tyrer-Cuzick lifetime risk of malignancy. Scores less than 20% are not considered high risk per ACR guidelines and patient should continue with the above recommendation. Finalized by Stanley Madsen MD on 04/17/2025 12:24 PM 2 b MAMM 1 YR FDA Accredited Performing Facility: [facility] - Mammography/DEXA Imaging [address] [place] [id number] Procedure Note Stanley Madsen MD - 04/17/2025 MACKENZIE Agosto TUCKER 1985 [id number] EXAM: MAMM SCREENING BILATERAL W CAD, 04/16/2025 10:27 AM CLINICAL INDICATIONS: Screening, Encounter for screening mammogram formalignant neoplasm of breast COMPARISON: No prior studies currently available for comparison. TECHNIQUE: Bilateral digital tomosynthesis MLO and CC views of the breastswere obtained, with creation of synthetic 2D views. Computer aideddetection was utilized. FINDINGS: There are scattered areas of fibroglandular density. Small circumscribed benign bilateral breast masses. There are no suspicious masses, calcifications, or areas of architectural distortion. IMPRESSION: No mammographic evidence of malignancy. BI-RADS: BI-RADS 2 - Benign RECOMMENDATION: Routine screening mammogram in 1 year. RISK ASSESSMENT: TC Lifetime risk: 11.32%. The patient's reported personal and family medical history was usedcalculate their Tyrer-Cuzick lifetime risk of malignancy. Scores less than20% are not considered high risk per ACR guidelines and patient shouldcontinue with the above recommendation. Finalized by Stanley Madsen MD on 04/17/2025 12:24 PM 2 b MAMM 1 YR FDA Accredited Performing Facility: [facility] - Mammography/DEXA Imaging [address] [facility] [address] Authorizing ProviderResult TypeResult StatusLisa Jason Ramírez TUBING DRIER-CNPG MAMMOGRAPHY ORDERABLESFinal Result * Ultrasound pelvic with transvaginal (04/16/2025 10:35 AM EDT)Anatomical Region LateralityModalityBody, PelvisUltrasoundSpecimen (Source)Anatomical Location / LateralityCollection Method / VolumeCollection TimeReceived Time04/16/2025 12:41 PM EDT Narrative 04/16/2025 12:42 PM EDT Clinical history: Dysmenorrhea Findings:Transabdominal ultrasound was performed of the pelvis.. ??Endovaginal sonography was also performed to better evaluate [...] by Baldo Shen MD on 04/16/2025 12:42 PM Procedure Note Baldo Shen MD - 04/16/2025 Clinical history: Dysmenorrhea Findings:Transabdominal ultrasound was performed of the pelvis..Endovaginal sonography was also performed to better evaluate the pelvicand adnexal structures.. Uterus measures 12.4 cm in length and 6.2 cm AP diameter. In the anteriorfundus there is a solid mass measuring 3.7 x 4.0 x 4.0 cm. This is likelya fibroid. Endometrium measures 12.8 mm. Nabothian cysts present. Right ovary not visualized overlying bowel gas. Left ovary 4.8 x 3.1 x 3.4 cm. Functional cyst left ovary measuring 2.5 x2.4 x 1.9 cm. Impression: Intrauterine fibroid. Otherwise unremarkable left ovary. Finalized by Baldo Shen MD on 04/16/2025 12:42 PM Authorizing ProviderResult TypeResult StatusTrice WOODSCNPIMG ORDERABLESFinal Result * Thin Prep Pap Test (03/27/2025 4:18 PM EDT)ComponentValueRef RangeTest Method Analysis TimePerformed AtPathologist SignatureCase ReportGynecologic Cytology Report ? Case: [id number] ? Authorizing Provider: ??TESHA Gregorio ?? Collected: ? 03/27/20258 ? Ordering Location: ? [facility] ? Received: ?03/27/2025 1618 ? Obstetrics/Gynecology ? First Screen: ?Krish Escalante, ? CT(ASCP) ? Specimen: ?Thin Prep Pap, Cervix/Endocervix ? 03/28/2025 12:32 PM [facility] LABORATORYSpecimen Adequacy Satisfactory for evaluation. A transformation zone component is not identified via imaging-assistedreview, using [facility] Thin Prep Imaging System, within 22 microscopic solomon of view.03/28/2025 12:32 PM [facility] LABORATORYInterpretationNEGATIVE FOR INTRAEPITHELIAL LESION OR MALIGNANCY NEGATIVE FOR INTRAEPITHELIAL LESION OR MALIGNANCY, UNSATISFACTORY, EPITHELIAL CELL ABNORMALITY, GLANDULAR EPITHELIAL CELL ABNORMALITY. , SQUAMOUS EPITHELIAL CELL ABNORMALITY, NO DIAGNOSIS RENDERED.03/28/2025 12:32 PM [facility] at 1231 EDTAdditional InformationThe Pap test is a screening test with an inherent, but low, probability of error. The Pap test is primarily effective for the diagnosis and prevention of squamous cell carcinoma. Regular screening iscritical for prevention. ThinPrep liquid-based slides, which meet the Library Technical Assistant criteria for automated screening, have been screened by the [employer] System (as of 03/12/07) along with an additional manual rescreening by a shorts sifter and, if indicated, by a pathologist.03/28/2025 12:32 PM [facility] LABORATORYClinical Miblbuaanvgfsaq10/03/2025 12:32 PM [facility] LABORATORYEmbedded Bmvgcp4103/28/2025 12:32 PM [facility] LABORATORYSpecimen (Source)Anatomical Location / LateralityCollection Method / VolumeCollection TimeReceived TimeThin Prep (Cervix/Endocervix)03/27/2025 4:18 PM EDT1 4:18 PM EDT Narrative Authorizing ProviderResult TypeResult StatusTrice Gomez Darrell TUBING DRIER-DIRECTOR [employer] INSUR[employer] PATHOLOGY/CYTOLOGY ORDERABLESFinal ResultPerforming OrganizationAddress City/State/ZIP CodePhone Number [facility] [address] [place] [address], * High risk HPV w/kael (03/27/2025 4:18 PM EDT)ComponentValueRef RangeTest MethodAnalysis TimePerformed AtPathologist SignatureHPV 16NegativeNegative 03/28/2025 3:19 PM [facility] LABORATORYHPV 18Negative [place]33/03/2025 3:19 PM [facility] LABORATORYOTHER HIGH RISK FTQYqiovzjxFlowfeki00/03/2025 3:19 PM [facility] LABORATORYComment:HPV types 31, 33, 35, 39, 45, 52, 56, 58, 59, 66, and 68 DNA were undetectable.Specimen (Source)Anatomical Location / LateralityCollection Method / VolumeCollection TimeReceived TimeThin Prep (Cervix/Endocervix) 03/27/2025 4:18 PM EDT1 4:33 AM EDT Narrative Authorizing ProviderResult TypeResult Merissa Ramírez TUBING DRIER-CNPLAB BLOOD ORDERABLESFinal ResultPerforming OrganizationAddressty/State/ZIP CodePhone Number [facility] [address] [place] [address], [place] [phone] from Last 3 Months Insurance Advance Directives * Full Code (Latest Code Status on File) Date ActivatedDate InactivatedComments02/25/2017 11:52 AM02/26/2017 9:59 PM Care Teams Team MemberRelationshipSpecialtyStart DateEnd Date Evelina Mear MD [address] [place] [address] PCP - GeneralFamily Medicine03/03/25
--- OUTSIDE RECORDS SUMMARY | 2025-06-24 13:17 | XMS_ITS | Clinical Summary ---
Author Organization [facility] Address [address] [place] [address] Care Team Providers Care Pattern Scratcher Name Role Phone Evelina Mera MD Primary Care Provider [phone] Allergies Active AllergyReactionsCriticalityNoted DateCommentsPenicillin V107/29/2024 Other Reaction(s): rash YdtinzoppwtXjrnJwz80/02/2017 Other Reaction(s): Unknown Sulfa IctfdwoccznCogrvjtvbklHhlf44/07/2024 Other Reaction(s): Swelling of Lip/Tongue/Throat, tongue swelling Bosrrgkwokzhssap19/07/2024 Other Reaction(s): Swelling of Lip/Tongue/Throat, tongue swelling Sulfamethoxazole-HdwtohykjdosLdbrqvsxapwJhxy25/02/2017 Other Reaction(s): Unknown Iomsoamuqlvr37/10/2024 Other Reaction(s): Swelling of Lip/Tongue/Throat, tongue swelling [...] ProblemNoted DateDiagnosed DateOvarian cyst04/04/2024Flank pain02/06/2024cute lumbar myofascial vfvwfv1002/06/20249713Kmhebi14/13/2024PV (benign positional vertigo)02/06/20242871Usyipsrevd62/13/8823Uaxphblh96/13/6166Wsffvicz43/13/2024 Irregular ozhswt4902/06/20247695Hdvwbiw39/13/2024Type 2 diabetes yxgcaffv45/13/2024OSA (obstructive sleep apnea)02/06/20243358Xgelwzeoyipb14/13/2024GAD (generalized anxiety disorder)02/06/2024bdominal pain02/26/2017 Resolved Problems ProblemNoted DateDiagnosed DateResolved DateCat tqddqdy36 Fbimyeemrocuifq56Nausea Encounters DateTypeDepartmentCare DrqwRczdfwvpbkl60/30/2025linisync Result Encounter [facility] Unsolicited David Villeda, 06/23/2025bstract [facility] [address] [place] [address] David Villeda, DO 06/11/2025 1:30 PM ESTProcedure Visit [facility] [address] [place] [address] David Villeda, Pre-op examination; Menorrhagia with regular cycle; Pelvic pain in female; Abnormal uterine xodwvsws08/15/2025Telephone [facility] [address] [place] [address] David Villeda DO 05/07/2025 11:20 AM ESTOffice Visit [facility] [address] [place] [address] David Villeda DO Menorrhagia with regular cycle5Bamboo flowsheet [facility] [address] [place] [address] David Villeda, DO from Last 3 Months Immunizations ImmunizationAdministration DatesNext DueInfluenza, injectable, MDCK, preservative free, cykpzjbuzgkb37/26/2017Influenza, injectable, quadrivalent 07/05/2022,07/26/2021,05/12/2019Influenza, injectable, quadrivalent, preservative free04/22/2020,05/01/2018,04/23/2015Tdap01/15/2021 Family History Medical HistoryRelationNameCommentsHeart failureFatherHypertensionFatherCancer MotherThyroid diseaseSisterRelationNameStatusCommentsFatherMotherSister Social History Tobacco UseTypesPacks/DayYears UsedDateSmoking Tobacco: NeverSmokeless Tobacco: Never Tobacco Cessation:Counseling Given: Not Answered Alcohol UseStandard Drinks/WeekCommentsNot Currently0 (1 standard drink = 0.6 oz pure alcohol)CommentsNoSex and Gender InformationValueDate RecordedSex Assigned at BirthNot on fileLegal OlvMnpdsw37/15/2023 6:56 PM EDTGender Identity Not on fileSexual OrientationNot on file Last Filed Vital Signs Vital SignReadingTime TakenCommentsBlood Crxhwrac263/7406/11/2025 1:36 PM EST Becee067710/08/2024 10:21 AM EDTTemperature--Respiratory Rate--Oxygen Saturation-- Inhaled Oxygen Concentration--Bgiglw887 kg (365 lb)06/11/2025 1:36 PM ESTHeight 167.6 cm (5' 6 )05/07/2025 11:17 AM ESTBody Mass Index58.9105/07/2025 11:17 AM EST Plan of Treatment Health MaintenanceDue DateLast DoneCommentsInfluenza Vaccine (#1)02/24/2025 07/05/2022, 07/26/2021, 04/22/2020, Additional history tvvrduJwqltwvba48/22/2026 04/16/2025Pap Smear, 03/27/2025, 03/27/2025ervical Cancer Rahvtoyaq75/02/2030HPV/Ceeghm42Pneumococcal Vaccine: Pediatrics (0 to 5 Years) and At-Risk Patients (6 to 64 Years)Aged OutNo longer eligible based on patient's age to complete this topic Procedures Procedure NamePriorityDate/TimeAssociated DiagnosisCommentsALL BASIC METABOLIC WNSDBWwgxvcg18/30/2025 9:40 AM EST ENDOMETRIAL FJBZQBTtuljat00/17/2025 2:03 PM EST Menorrhagia with regular cycle Pelvic pain in female Abnormal uterine bleeding POCT , ZNKEMMnxangi57/17/2025 1:48 PM EST Menorrhagia with regular cycle Pelvic pain in female Abnormal uterine bleeding PAP TEST, ZNTMMTOCRtnphrw80/02/2025 12:00 AM EDTfrom Last 3 Months Results * (ABNORMAL) ALL BASIC METABOLIC PANEL (06/24/2025 9:40 AM EST)ComponentValueRef RangeTest MethodAnalysis TimePerformed AtPathologist OyeieaspmEGTHLF252546 - 145 mmol/LTBHPOTASSIUM4.03.5 - 5.1 mmol/SUARFASGWJVY40272 - 107 mmol/LTBH CARBON TZTUNUE40.521.0 - 32.0 mmol/LTBHANION GAP13.8DANNPJRIWS443(H)74 - 106 mg/dLTBHBLOOD UREA AQKVIKLJ19.07.0 - 18.0 mg/dLTBHCREATININE0.760.55 - 1.02 mg/dLTBHTBH EGFR-AF MACEDONIAN>60>=60 mL/min/1.73m 2TBHTBH EGFR-NON AF MACEDONIAN >60>=60 mL/min/1.73m 2TBHBUN CREATININE RATIO15.4DMVCZAGVXH7.38.5 - 10.1 mg/dL TBHSpecimen (Source)Anatomical Location / LateralityCollection Method / Volume Collection TimeReceived Time06/24/2025 9:40 AM EST06/24/2025 9:48 AM EST Narrative CLINISYNC - 06/24/2025 10:05 AM EST Authorizing ProviderResult TypeResult StatusDavid Villeda DOCLINISYNCFinal Result Performing OrganizationAddressCity/State/ZIP CodePhone Number [facility] * Endometrial biopsy (06/11/2025 2:03 PM EST) Narrative Edileodan AidaCATRINA - 06/11/2025 2:03 PM EST Aida CATRINA Teixeira 06/11/2025 2:31 PM Endometrial biopsy Date/Time: 06/11/2025 [...] Location / LateralityCollection Method / VolumeCollection TimeReceived GcooZnqgq56/17/2025 1:48 PM EST Narrative Authorizing ProviderResult TypeResult StatusDavid Villeda DOPOINT OF CARE TEST ENTER/EDIT ORDERABLESFinal Result * PAP TEST, EXTERNAL (03/27/2025 12:00 AM EDT) Narrative Authorizing ProviderResult TypeResult StatusCoremercedez Vilelda DOLAB CYTOLOGY ORDERABLESFinal ResultPerforming OrganizationAddressCity/State/ZIP CodePhone Number EXTERNAL LAB from Last 3 Months Insurance * Guarantor: Nati Santos TypeRelation to PatientDate of BirthPhone Billing AddressPersonal/UwvmgcLeyn1985 [address] [address] Care Teams Team MemberRelationshipSpecialtyStart DateEnd Date Evelina Mera MD [address] [place] [address] PCP - GeneralFamily Medicine10/08/24
--- OUTSIDE RECORDS SUMMARY | 2025-06-24 14:46 | XMS_ITS | CCD ---
Author Organization [facility] Care Team Providers Care Information Director Name Role Phone MARK MARTELL Attending Unavailable JASBIR, MARK Consulting Unavailable JASBIR, MARK Primary Care Unavailable JASBIR, MARK Admitting Unavailable TAY, MAXIMINO Admitting Unavailable GILBERT, DR KAYLYN Lemus Consulting Unavailable TAY, MAXIMINO Attending Unavailable REQUEST, NONE LISTED Primary Care Unavaila ble TAY, MAXIMINO Consulting Unavailable REQUEST, NONE LISTED Primary Care Unavaila ble BECKI, DR ANA PAULA Medrano Consulting Unavailable TAY, MAXIMINO Admitting Unavailable TAY, MAXIMINO Attending Unavailable CROSS, MAXIMINO Consulting Unavailable JASBIR, MARK Consulting Unavailable JASBIR, MARK Attending Unavailable REQUEST, NONE LISTED Primary Care Unavaila ble JASBIR, MARK Admitting Unavailable JASBIR, MARK Attending Unavailable JASBIR, MARK Consulting Unavailable ROSS, MARK Primary Care Unavailable ROSS, MARK Admitting Unavailable Dominique Nascimento Unavailable Samreen Reed Unavailable [facility] Primary Care Provider [phone] MIRNA Le Attending Provider MD Kate Groves Attending Provider [phone] MD Adry Crockett Other Provider [phone] DO Gris Phillip Attending Provider NO FAMILY, PHYSICIAN Primary Care Provider Unava ilable DO Say Anderson Attending Provider Nicole Nelson Unavailable [facility], Services Primary Care Provider MIRNA Spangler Emergency Provider Myriam Spence Unavailable [facility] Primary Care Provider MIRNA Spangler Emergency Provider Dionisio, EBONI Bianka Attending Provider [phone] Nichole, Bianka Unavailable April Ahumada Unavailable Brigitte [...] Care Provider Bennett LYN-C, Kajal Attending Provider [phone] Ely Dodge MD Attending Provider Adonis [...] Primary Care Unavailable ARGENTINA RICHTER Attending Unavailable AUHMADA, APRIL E Referring Unavailable AHUMADA, APRIL E [...] Unavailable April Ahumada MD Primary Care Provider [phone] Bartolo Lyons PA-C Emergency Provider Imelda Hutchins CMA Attending Provider Unavaila April Taylor MD Attending Provider Bennett LYN-C, Kajal Attending Provider Ely Dodge MD Attending Provider [phone] Adonis Ferguson APRN Attending Provider [phone] Brigitte Busch DNP Attending Provider LIAM WAGGONER Attending Unavailable LIAM WAGGONER Attending Unavailable DAVID VILLEDA Attending Unavailable April Ahumada MD Primary Care Provider [phone] Allergies Allergy ClassificationReported Allergen(s)Allergy TypeDate of OnsetReaction(s) FacilityDihydrofolate Reductase Inhibitors (antibiotic) (2 sources)TrimethoprimDrug Mgvqbzp39-34-9292Iqzdbhcy of Lip/Tongue/Throat, tongue swellingChillicothe HospitalPenicillins (antibiotic) (4 sources)PenicillinDrug Qsgmwqh65-98-0544eqzeZanxdtfdvChillicothe Hospital Sulfonamides (antibiotic) (2 sources)SulfamethoxazoleDrug Lwoihml28-42-6437Afdylkzy of Lip/Tongue/Throat, tongue swellingChillicothe Hospital (13 sources)PenicillinDrug AllergyrashNorth Saint John'S [facility] Other (13 sources)Sulfamethoxazole / TrimethoprimDrug Allergytongue swellingNortCoatesville Veterans Affairs Medical Center [facility] Other (20 sources)Penicillins; Translations: [PENICILLINS]Allergy to substance 63-52-9217LamwSuuutmpgaPike Community Hospital (20 sources)Sulfamethoxazole; Translations: [sulfamethoxazole]Drug Allergy 10-04-3948Daklsiet of Lip/Tongue/Throat, Swelling of Lip/Tongue/Throat, tongue swellingChillicothe Hospital (20 sources)Trimethoprim; Translations: [trimethoprim]Drug Vceanqg25-41-7166 Swelling of Lip/Tongue/Throat, Swelling of Lip/Tongue/Throat, tongue swelling [facility] (20 sources)Penicillin; Translations: [penicillin V]Drug Dignwrn85-22-7303rnsr [facility] (20 sources)Sulfamethoxazole / Trimethoprim; Translations: [SULFAMETHOXAZOLE-TRIMETHOPRIM]Drug Nkdzkai29-32-0174JwfcomujhtrGRFN Healthcare (4 sources)Sulfonamides (Antibiotic); Translations: [SULFA (SULFONAMIDE ANTIBIOTICS)]Propensity to adverse reactions to kzie24-82-7878Zaonihrmdxx [facility] Medications Current Medications MedicationDrug Class(es)DatesSig (Normalized)Sig (Original)0.25 MG, 0.5 MG Dose 3 ML semaglutide 0.68 MG/ML Pen Injector [Ozempic] (3 sources)Ozempic (0.25 or 0.5 MG/DOSE) 2 MG/3ML as directed Subcutaneous ActiveAspir-81 (13 sources)Aspir-81 Activeaspirin 81 mg oral tablet (20 sources)Platelet Aggregation Inhibitor, Nonsteroidal Anti-inflammatory Drug Start: 40-75-6714glqd 1 tablet by mouth once dailyaspirin 81 MG chewable tablet Chew 81 mg in the morning. Activeatorvastatin 40 mg oral tablet (20 sources)HMG-CoA Reductase InhibitorStart: 02-12-2024 End: 59-95-1210kgqm 1 tablet by mouth once dailyAtorvastatin 40 mg tablet Discontinued 0 .ROUTE .COMPLEX 90 3 May 14, 2024 12:50pm April 07, 2025 10:29am TAKE 1 TABLET BY MOUTH DAILYStart: 55-12-8698vchz 1 tablet by mouth once dailyAtorvastatin Active 0 .ROUTE .COMPLEX 90 February 12, 2024 8:29am TAKE 1 TABLET BY MOUTH DAILYStart: 08-14-2023 End: 64-97-5837eoeo 1 tablet by mouth once dailyatorvastatin (Lipitor) 40 MG tablet Take 40 mg by mouth Daily 11/21/2023 ActiveStart: 08-17-2021 End: 97-55-0836Cmvgwfosvelv 40 mg tablet Discontinued MG August 17, 2021 12:00am June 26, 2022 2:54pmStart: 08-17-2021 End: 58-22-9617Jvuzezkguaup Discontinued MG TABLET August 17, 2021 1:00am June 26, 2022 3:54pmStart: 08-02-2020 End: 16-04-7025nvgt 1 tablet by mouth once dailyAtorvastatin 10 mg tablet Discontinued 10 MG PO Daily August 02, 2020 12:00am August 17, 2021 2:00pmAtorvastatin Calcium Activebenzonatate 200 mg oral capsule (4 sources)Non-narcotic AntitussiveStart: 57-69-9253dltm 1 capsule by mouth every eight hoursBenzonatate 200 MG 1 capsule Orally Three times a day for 10 day(s) May, ActivebusPIRone hydrochloride 5 mg oral tablet (20 sources)Start: 26-91-6123untf 1 tablet by mouth twice dailyStart: 10-03-2024 End: 13-82-0080cepu 1 tablet by mouth twice dailyBuspirone 5 mg tablet Discontinued 5 MG PO Twice daily 60 30 0 March 03, 2025 11:18am March 14, 2025 8:39amcefdinir 300 mg oral capsule (7 sources)Cephalosporin AntibacterialStart: 59-22-2882cfft 1 capsule by mouth every twelve hoursCefdinir 300 MG 1 Capsule Orally bid for 10 days Mar, ActiveStart: 65-25-2401Jwnljgma 300 MG as directed Orally BID for 7 days Mar, Activefamotidine 40 mg oral tablet (1 source)Histamine-2 Receptor AntagonistStart: 90-02-1800emye 1 tablet by mouth once daily at bedtimefurosemide 40 mg oral tablet (20 sources)Loop DiureticStart: 26-13-2667rptf 1 tablet by mouth once daily Start: 08-17-2021 End: 20-26-0791ttre 1 tablet by mouth once dailyfurosemide (Lasix) [...] mg oral tablet (20 sources)AntiemeticStart: 12-05-2023 End: 87-58-9656kalkmzeiq (Antivert) 25 MG tablet Take 25 mg by mouth as needed in the morning and 25 mg as needed in the evening. 12/05/2023 ActivemetFORMIN hydrochloride 1000 mg oral tablet (20 sources)BiguanideStart: 02-12-2024 End: 09-08-9506xpnz 1 tablet by mouth twice dailyMetformin 1,000 mg tablet Discontinued 0 .ROUTE .COMPLEX 180 1 November 14, 2024 10:27am March 10:29am TAKE 1 TABLET BY MOUTH TWICE DAILYStart: 11-14-2023 End: 31-22-4833pvnw 1 tablet by mouth in the morningmetFORMIN (Glucophage) 1000 MG tablet Take 1,000 mg by mouth in the morning and 1,000 mg in the evening. Take with meals. 11/14/2023 ActiveStart: 08-14-2023 End: 88-75-6832lsak 1 tablet by mouth twice dailyMetformin 1,000 mg tablet Discontinued 1000 MG PO Twice daily 180 0 August 14, 2023 2:28pm September 19, 2023 12:09pmStart: 08-02-2020 End: 15-44-2385Uwtxyypat 850 mg tablet Discontinued 1000 MG PO Twice daily August 02, 2020 12:00am November 14, 2023 3:30pmStart: 08-02-2020 End: 76-81-8271zeta 1000 mg by mouth twice dailyMetformin Discontinued [...] ActivemethylPREDNISolone 4 mg oral tablet (3 sources)CorticosteroidStart: 51-16-2631llseygOIAWBAPyprjv 4 MG as directed Orally for daily dose take half with breakfast, half with dinner for 6 days Mar, Activeomeprazole 20 mg delayed release oral capsule (5 sources)Proton Pump InhibitorStart: 10-43-7731xmbs 1 capsule by mouth once dailyozempic (0.25 or 0.5 mg/dose) 2 mg/3ml solution pen-injector (3 sources)Ozempic (0.25 or 0.5 MG/DOSE) 2 MG/3ML as directed Subcutaneous ActivePotassium (11 sources)Potassium Activepotassium chloride 10 meq extended release oral tablet (20 sources)Start: 08-30-2023 End: 59-56-6703gwiq 1 tablet by mouth three times daily at mealtimePotassium Chloride 10 mEq tablet extended release Discontinued 0 .ROUTE .COMPLEX 270 1 May 14, 2024 12:51pm November 25, 2024 12:45pm TAKE 1 TABLET BY MOUTH THREE TIMES DAILY WITH FOODStart: 96-10-2088kznu 1 tablet by mouth in the morning, then take 1 tablet by mouth in the evening, then take 1 tablet by mouth at bedtimepotassium chloride CR (Klor-Con) 10 MEQ ER tablet Take 10 mEq by mouth in the morning and 10 mEq inthe evening and 10 mEq before bedtime. 08/30/2023 ActiveStart: 01-15-2021 End: 34-03-3913oyyr 1 capsule by mouth three times dailyPotassium Chloride 10 mEq capsule, extended release Discontinued 10 MEQ PO Three times daily January 142020 11:00pm August 30, 2023 2:27pmtake 1 tablet by mouth three times daily at mealtimePotassium Chloride ER 10 MEQ 1 tablet with food Orally three times daily for 90 days Activesertraline 100 mg oral tablet (20 sources)Serotonin Reuptake InhibitorStart: 32-77-5116Qmoqs: 02-12-2024 End: 42-50-8532avdc 1 tablet by mouth once dailySertraline 100 mg tablet Discontinued 0 .ROUTE .COMPLEX 90 0 March 03, 2025 11:18am April 07, 2025 10:21am TAKE 1 TABLET BY MOUTH DAILYStart: 10-29-2021 End: 69-41-1216djxi 1 tablet by mouth once dailysertraline (Zoloft) 100 MG tablet Take 100 mg by mouth Daily 11/21/2023 ActiveSUMAtriptan 50 mg oral tablet (20 sources)Serotonin-1b and Serotonin-1d Receptor AgonistStart: 01-18-2024 End: 13-35-6476vebw 1 tablet by mouth every two hours as needed for headache, then take 4 tablets by mouth every twenty-four hours as needed for headache Start: 21-51-6253GNREwyzaxoc (Imitrex) 50 MG tablet 01/03/2024 ActiveStart: 01-03-2024 End: 66-22-6046cpmo 4 tablets by mouth every twenty-four hours as needed for headacheSumatriptan Succinate 50 mg tablet Discontinued 50 MG PO Every 2 hours as needed for migraine headache 10 0 January 02, 2024 11:00pm January 18, 2024 10:37am do not exceed 4 doses per 24 hrsTirzepatide (Weight Loss) (4 sources)Start: 41-03-2393Fuxhq: 04-23-2025 End: 84-43-0015Bqpginnqvdd (Weight Loss) (Zepbound) 2.5 mg/0.5 mL pen injector Discontinued 2.5 MG SUBCUT every week 2.5 30 0 April 22, 2025 11:00pm April 28, 2025 1:40pm brandon G47.33 for 4 weeksStart: 10-54-9081Ladovjfeodh (Weight Loss) (Zepbound) 2.5 mg/0.5 mL pen injector Active 2.5 MG SUBCUT every week 2.530 0 April 22, 2025 11:00pm brandon G47.33 for 4 weeks Complies with drug therapyStart: 85-03-2746Mwcprzocsll (Weight Loss) (Zepbound) 2.5 mg/0.5 mL pen injector Active 2.5 MG SUBCUT every week 2.530 0 April 23, 2025 12:00am brandon G47.33 for 4 weeks Complies with drug therapytiZANidine 4 mg oral tablet (14 sources)Central alpha-2 Adrenergic AgonistStart: 04-07-6462qduw 1 tablet by mouth three times daily as neededStart: 88-56-6871ajoj 1 tablet by mouth every eight hourstiZANidine HCl 4 MG 1 tablet as needed Orally Three times a day for 3 days Feb, Vtyowo24 hr topiramate 25 mg extended release oral capsule (4 sources)Start: 44-21-6201ygzb 1 capsule by mouth once dailyStart: 04-07-2025 topiramate (TOPAMAX) 25 mg tablet One PO qhs for 1-2 weeks then Increase BIID for another 1-2 weekdthen TID for one to two week then 2 tablets BID 70 tablet 12 04/07/2025 Active Completed/Discontinued Medications MedicationDrug Class(es)DatesSig (Normalized)Sig (Original)amLODIPine 5 mg oral tablet (20 sources)Dihydropyridine Calcium Channel BlockerStart: 01-15-2021 End: 31-20-2197hokp 1 tablet by mouth once dailyAmlodipine 5 mg tablet Discontinued 5 MG PO Daily January 14, 2021 11:00pm August 17, 2021 2:00pm End: 61-26-1018mpoo 1 tablet by mouth once dailyamLODIPine (NORVASC) 10 mg tablet Take 10 mg by mouth daily. 03/27/2025 Discontinued (Therapy completed) amLODIPine Besylate Activeazithromycin 250 mg oral tablet (20 sources)Macrolide AntimicrobialStart: 05-13-2024 End: 69-52-9649Tjmtuerexgwz 250 mg tablet Discontinued 0 PO .COMPLEX 6 0 May 13, 2024 12:00am August 19, 2024 3:03pm For 250 mg dose pack: take 500 mg today (day 1), then 250 mg for 4 days (days 2-5) POStart: 01-15-2021 End: 13-33-8226hpfr 2-5 tablets by mouth once dailyAzithromycin 250 mg tablet Discontinued 0 PO .COMPLEX 6 0 January 14, 2021 11:00pm August 17, 2021 2:00pm take 500 mg today (day 1), then 250 mg for 4 days (days 2-5)12 hr buPROPion hydrochloride 200 mg extended release oral tablet (20 sources)AminoketoneStart: 63-73-2031shtv 1 tablet by mouth twice daily Bupropion Hcl Active 0 .ROUTE .COMPLEX 60 March 15, 2024 8:45am TAKE 1 TABLET BY MOUTH TWICE DAILYStart: 02-12-2024 End: 59-50-4094wiyr 1 tablet by mouth twice dailyBupropion Hcl Discontinued 0 .ROUTE .COMPLEX 60 February 12, 2024 8:29am March 15, 2024 8:45am TAKE 1 TABLET BY MOUTH TWICE DAILYStart: 01-18-2024 End: 62-70-7613lruj 1 tablet by mouth twice dailyBupropion Hcl 200 mg tablet sustained-release 12 hr Discontinued 0 .ROUTE .COMPLEX 180 May 14, 2024 12:51pm October 03, 2024 10:09am TAKE 1 TABLET BY MOUTH TWICE DAILYStart: 01-18-2024 End: 10-70-2038anmf 1 tablet by mouth twice dailyBupropion Hcl Discontinued 0 .ROUTE .COMPLEX 60 January 18, 2024 11:37am February 12, 2024 8:30am TAKE 1 TABLET BY MOUTH TWICE DAILYStart: 11-21-2023 End: 32-38-3630yhun 1 tablet by mouth every twelve hours in the morningbuPROPion SR (Wellbutrin SR) 200 MG 12 hr tablet Take 200 mg by mouth in the morning and 200 mg before bedtime. 11/21/2023 04/04/2024 Discontinued (Duplicate order) Start: 09-19-2023 End: 79-55-0308krdz 1 tablet by mouth twice dailyBupropion Hcl 200 mg tablet sustained-release 12 hr Discontinued 200 MG PO Twice daily 60 September 19, 2023 12:09pm November 21, 2023 1:09pmStart: 08-02-2020 End: 76-63-1068hffg 1 tablet by mouth twice dailyBupropion Hcl 100 mg tablet sustained-release 12 hr Discontinued 150 MG PO Twice daily August 02, 2020 12:00am September 19, 2023 9:13am End: 72-55-3492gurnzqzfs HCl (WELLBUTRIN ORAL) Take by mouth. 03/27/2025 Discontinued (Therapy completed)bupropion HCl (WELLBUTRIN ORAL) Take by mouth. Activetake 1 tablet by mouth every twenty-four hoursbuPROPion HCl ER (SR) 200 MG 1 tablet in the morning Orally Once a day ActiveWellbutrin ActiveBupropion Hcl 200 mg tablet sustained-release 12 hr (15 sources)Start: 03-15-2024 End: 44-16-8263ggvj 1 tablet by mouth twice dailyBupropion Hcl 200 mg tablet sustained-release 12 hr Discontinued 0 .ROUTE .COMPLEX 60 March 15, 2024 8:45am April 17, 2024 3:45pm TAKE 1 TABLET BY MOUTH TWICE DAILYStart: 03-15-2024 End: 25-67-0170ealb 1 tablet by mouth twice dailyBupropion Hcl 200 mg tablet sustained-release 12 hr Discontinued 0 .ROUTE .COMPLEX 60 March 15, 2024 7:45am April 17, 2024 2:45pm TAKE 1 TABLET BY MOUTH TWICE DAILYStart: 02-12-2024 End: 80-14-0522medc 1 tablet by mouth twice dailyBupropion Hcl 200 mg tablet sustained-release 12 hr Discontinued 0 .ROUTE .COMPLEX 60 February 12, 2024 8:29am March 15, 2024 8:45am TAKE 1 TABLET BY MOUTH TWICE DAILYStart: 02-12-2024 End: 25-86-9120mxbq 1 tablet by mouth twice dailyBupropion Hcl 200 mg tablet sustained-release 12 hr Discontinued 0 .ROUTE .COMPLEX 60 February 12, 2024 7:29am March 15, 2024 7:45am TAKE 1 TABLET BY MOUTH TWICE DAILYStart: 01-18-2024 End: 69-43-8318shzs 1 tablet by mouth twice dailyBupropion Hcl 200 mg tablet sustained-release 12 hr Discontinued 0 .ROUTE .COMPLEX 60 January 18, 2024 11:37am February 12, 2024 8:30am TAKE 1 TABLET BY MOUTH TWICE DAILYStart: 01-18-2024 End: 48-64-9962jjri 1 tablet by mouth twice dailyBupropion Hcl 200 mg tablet sustained-release 12 hr Discontinued 0 .ROUTE .COMPLEX 60 January 18, 2024 10:37am February 12, 2024 7:30am TAKE 1 TABLET BY MOUTH TWICE DAILYcefuroxime 500 mg oral tablet (5 sources)Cephalosporin AntibacterialStart: 99-00-1625jjjj 1 tablet by mouth every twelve hoursCefuroxime Axetil 500 MG 1 tablet Orally every 12 hrs for 7 days Feb, Not-Takingciprofloxacin 500 mg oral tablet (13 sources)Quinolone AntimicrobialStart: 12-25-2024 End: 15-70-8321yoqo 1 tablet by mouth twice dailyCiprofloxacin Hcl 500 mg tablet Discontinued 500 MG PO Twice daily 10 December 24, 2024 11:00pm February 06, 2025 5:02pmcyclobenzaprine hydrochloride 10 mg oral tablet (20 sources)Muscle RelaxantStart: 08-17-2021 End: 71-74-4639xqod 1 tablet by mouth three times daily as needed for muscle spasmsCyclobenzaprine 10 mg tablet Discontinued 10 MG PO Three times daily as needed for muscle spasm 14 August 17, 2021 12:00am September 19, 2023 12:09pmdexamethasone 1 mg/ml / tobramycin 3 mg/ml ophthalmic suspension (5 sources)Aminoglycoside Antibacterial, CorticosteroidStart: 02-93-1568xzaq 1 drop(s) into the eye(s) three times dailyTobraDex 0.3-0.1 % 1 drop into affected eye Ophthalmic Three times a day for 5 days Dec, Not-Taking dextromethorphan hydrobromide 1.5 mg/ml / pyrilamine maleate 1.5 mg/ml oral solution (5 sources)Uncompetitive D-ulcqtd-S-aspartate Receptor Antagonist, Sigma-1 AgonistStart: 16-64-8861Hhrqoi DM 7.5-7.5 MG/5ML 10 ml Orally every 6-8 hours as needed for 8 days Feb, Not-Takingescitalopram 20 mg oral tablet (20 sources)Serotonin Reuptake InhibitorStart: 08-02-2020 End: 91-96-4901iuxs 1 tablet by mouth once dailyEscitalopram Oxalate 20 mg tablet Discontinued 20 MG PO Daily August 02, 2020 12:00am September 19, 2023 12:08pmfluticasone propionate 0.05 mg/actuat metered dose nasal spray (20 sources)CorticosteroidStart: 12-11-2023 End: 75-18-1686vnsp 1 spray(s) nasal route once dailyFluticasone Propionate (Flonase Allergy Relief) 50 mcg/actuation spray,suspension Discontinued 2 SPRAY INTRANASAL Daily 16 0 December 10, 2023 11:00pm May 14, 2024 12:52pm administer into each nostrilStart: 88-21-4875tsvj 1 spray(s) nasal route once dailyFluticasone Propionate 50 MCG/ACT 1 spray in each nostril Nasally Once a day for 30 days Mar, ActiveStart: 06-27-6071hxbm 1 spray(s) nasal route once dailyFluticasone Propionate 50 MCG/ACT 1 spray in each nostril Nasally Once a day for 30 days Mar, ActivehydroCHLOROthiazide 25 mg oral tablet (20 sources)Thiazide DiureticStart: 08-02-2020 End: 05-17-7919vwor 1 tablet by mouth once dailyHydrochlorothiazide 25 mg tablet Discontinued 25 MG PO Daily August 02, 2020 12:00am August 17, 2021 2:00pmhydroCHLOROthiazide Not-TakinghydroCHLOROthiazide 12.5 mg / olmesartan medoxomil 20 mg oral tablet (20 sources)Thiazide Diuretic, Angiotensin 2 Receptor BlockerStart: 08-26-2024 End: 41-49-5064brmu 1 tablet by mouth once dailyOlmesartan-Hydrochlorothiazide 20-12.5 mg tablet Discontinued 0 .ROUTE .COMPLEX 90 0 December 20, 2024 7:26am March 17, 2025 7:47am TAKE 1 TABLET BY MOUTH DAILYStart: 05-13-2024 End: 90-51-9726cnjy 1 tablet by mouth once dailyOlmesartan-Hydrochlorothiazide 20-12.5 [...] sources)Nonsteroidal Anti-inflammatory Drug, Cyclooxygenase InhibitorStart: 08-17-2021 End: 37-99-7476sdjj 1 tablet by mouth every six hours as needed for pain Ketorolac 10 mg tablet Discontinued 10 MG PO Q6H as needed for pain 15 0 August 17, 2021 12:00am June 26, 2022 2:54pmlidocaine 0.05 mg/mg medicated patch (20 sources)Antiarrhythmic, Amide Local AnestheticStart: 08-17-2021 End: 83-14-4916vmlpn 1 dose topically once daily as needed for painLidocaine 5 % adhesive patch,medicated Discontinued 1 PATCH TOPICAL Daily as needed for pain 30 0 August 17, 2021 12:00am April 01, 2024 10:32am leave on most painful area for up to 12 hrsmetoprolol tartrate 50 mg oral tablet (20 sources)beta-Adrenergic BlockerStart: 02-12-2024 End: 21-40-7436yvbt 1 tablet by mouth twice dailyMetoprolol Tartrate 50 mg tablet Discontinued 0 .ROUTE .COMPLEX 180 0 August 12, 2024 3:11pm November 14, 2024 10:27am TAKE 1 TABLET BY MOUTH TWICE DAILYStart: 08-02-2020 End: 04-27-6253gumt 1 tablet by mouth in the morningmetoprolol tartrate (Lopressor) 50 MG tablet Take 50 mg by mouth in the morning and 50 mg before bed time. 11/21/2023 Activenaproxen 500 mg oral tablet (12 sources)Nonsteroidal Anti-inflammatory DrugStart: 02-06-2025 End: 44-84-7194dqre 1 tablet by mouth twice daily as needed for painNaproxen (Naprosyn) 500 mg tablet Discontinued 500 MG PO Twice daily as needed for pain 20 0 2024 11:00pm March 14, 2025 8:39amondansetron 4 mg disintegrating oral tablet (20 sources)Serotonin-3 Receptor AntagonistStart: 12-11-2023 End: 07-69-9788zhcg 1 tablet by mouth every eight hours as needed for nausea and vomitingOndansetron 4 mg tablet,disintegrating Discontinued 4 MG PO Q8H as needed for nausea and vomiting 30 0 December 19, 2023 10:44am May 14, 2024 12:52pmpredniSONE 20 mg oral tablet (20 sources)Start: 06-26-2022 End: 49-36-8984qmoh 2 tablets by mouth once daily at mealtimePrednisone 20 mg tablet Discontinued 40 MG PO Daily June 26, 2022 12:00am September 182:09pm administer with food or milkStart: 06-26-2022 End: 67-47-1863xzru 40 mg by mouth once daily at mealtimePrednisone Discontinued 40 MG PO Daily June 26, 2022 1:00am September 19, 2023 1:09pm administer with food or milkSemaglutide (17 sources)Start: 08-19-2024 End: 76-92-8064Ryoubtaabxk (Ozempic) 0.25 mg or 0.5 mg (2 mg/3 mL) pen injector Discontinued 0.25 MG SUBCUT every week 3 2 August 19, 2024 12:00am February 06, 2025 5:03pm for 4 weeksStart: 08-19-2024 End: 39-11-7623Cukecomdvls (Ozempic) 0.25 mg or 0.5 mg (2 mg/3 mL) pen injector Discontinued 0.25 MG SUBCUT every week 3 2 August 19, 2024 1:00am February 06, 2025 6:03pm for 4 weeksStart: 08-19-2024 End: 20-63-1957Ikrajbkikuy (Ozempic) 0.25 mg or 0.5 mg (2 mg/3 mL) pen injector Discontinued 0.25 MG SUBCUT every week 3 August 19, 2024 1:00am February 06, 2025 6:03pm for 4 weeksStart: 36-01-3557Wzykcpimgws (Ozempic) 0.25 mg or 0.5 mg (2 mg/3 mL) pen injector Active 0.25 MG SUBCUT every week 3Febru2024 1:00am for 4 weeks Complies with drug therapyStart: 77-57-9257Nywidjxtbry (Ozempic) 0.25 mg or 0.5 mg (2 mg/3 mL) pen injector Active 0.25 MG SUBCUT every week 3Febru2024 1:00am for 4 weeksStart: 52-06-6674Zfxxxcnfjea (Ozempic) 0.25 mg or 0.5 mg (2 mg/3 mL) pen injector Active 0.25 MG SUBCUT every week 3Februdallas 2024 12:00am for 4 weeksSemaglutide (Weight Loss) (9 sources)Start: 02-25-2025 End: 46-95-2506Lcsbiztloqs (Weight Loss) (Wegovy) 0.25 mg/0.5 mL pen injector Discontinued 0.25 MG SUBCUT every week 2 0 February 24, 2025 11:00pm April 07, 2025 10:08am administer weeks 1 through 4 of therapyStart: 02-25-2025 End: 58-46-6133Nsoimznhbha (Weight Loss) (Wegovy) 0.25 mg/0.5 mL pen injector Discontinued 0.25 MG SUBCUT every week 2 0 February 25, 2025 12:00am April 07, 2025 11:08am administer weeks 1 through 4 of therapyStart: 02-25-2025 End: 04-94-7055Mbgggmaxscm (Weight Loss) (Wegovy) 0.25 mg/0.5 mL pen injector Discontinued 0.25 MG SUBCUT every week 2 February 25, 2025 12:00am April 07, 2025 11:08am administer weeks 1 through 4 of therapyStart: 02-25-2025 Start: 57-25-7771Qftevemfvle (Weight Loss) (Wegovy) 0.25 mg/0.5 mL pen injector Active 0.25 MG SUBCUT every week 2 February 25, 2025 12:00am administer weeks 1 through 4 of therapy Complies with drug therapyToradol 30 mg/ml (20 sources)Start: 33-27-1570Okiuytx 30 mg/ml Dec, 30 mgStart: 13-23-3294Rxdmhrm 30 mg/ml Feb, 60 mg24 hr venlafaxine 75 mg extended release oral capsule (20 sources)Serotonin and Norepinephrine Reuptake InhibitorStart: 08-17-2021 End: 80-03-1230btdi 1 capsule by mouth once dailyVenlafaxine 75 mg capsule,extended release 24hr Discontinued 75 MG PO Daily August 17, 2021 12:00am April 17, 2024 2:26pmStart: 84-98-1949Dxjflfbznxb Active MG PO August 17, 2021 1:00am Problems Active Problems Problem ClassificationProblemDateDocumented DateEpisodic/ChronicAnxiety disorders (20 sources)Generalized anxiety disorder; Translations: [Generalized anxiety disorder]Onset: [id number] and vision defects (20 sources)Eye / vision finding; Translations: [Unspecified visual disturbance] 46-22-3581EiaoyyjkTcfiwzjb of urinary tract (8 sources)History of calculus of kidney; Translations: [Personal history of urinary calculi]06-30-3227DoxjyrhvWqjzebiuyn associated with dizziness or vertigo (20 sources)Active cochlear Meniere's disease; Translations: [Meniere's disease, right ear]Onset: 309047-29-4101MrrwfqvOfgzgohutr associated with dizziness or vertigo (1 source)Conditions associated with dizziness or vertigoDeficiency and other anemia (5 sources)Anemia, unspecified; Translations: [Anemia, unspecified]11-02-2023 EpisodicDeficiency and other anemia (18 sources)Iron deficiency anemia; Translations: [Iron deficiency anemia, unspecified]14-04-1643ZhlmaviyEhkoppuwjv and other anemia (8 sources)Deficiency and other anemiaDiabetes mellitus with complications (20 sources)Type 2 diabetes mellitus; Translations: [Type 2 diabetes mellitus with hyperglycemia]Onset: 09-13-5982HgnuctbMxwxatlr mellitus without complication (8 sources)Type 2 diabetes mellitus without complications; Translations: [Diabetes mellitus without mention ofcomplication, type II or unspecified type, not stated as uncontrolled]91-21-3589KemapeaNauublfav of lipid metabolism (9 sources)Dyslipidemia; Translations: [Hyperlipidemia, unspecified]Chronic Esophageal disorders (14 sources)Gastroesophageal reflux disease; Translations: [Gastro-esophageal reflux disease without esophagitis]Onset: 428334-73-6155IjwbxqzEfpqftjce hypertension (20 sources)Essential (primary) hypertension; Translations: [Essential hypertension]Onset: 38-35-5544ApxonynRclswmux (20 sources)Glaucoma; Translations: [Unspecified glaucoma]Onset: 02-06-2024 16-46-7691XdkevjkGlcgthqg; including migraine (2 sources)Migraine; Translations: [Migraine, unspecified, not intractable, without status migrainosus]02-43-2682KdsscgoMdajxmxfivlri and screening for infectious disease (15 sources)Contact with and (suspected) exposure to other viral communicable diseases; Translations: [Contact with and (suspected) exposure to other viral communicable diseases]Onset: 02-07-2022 Resolved: 19-71-1631IwwzjowfYwyazqpfv disorders (17 sources)Irregular periods; Translations: [Irregular menstruation, unspecified]Onset: 017235-76-3498ZmaxcvuOadedusxnjdsy mental health disorders (13 sources)Disorders of initiating and maintaining sleep; Translations: [Insufficient sleep syndrome]ChronicMood disorders (8 sources)Depressive disorder; Translations: [Depression]67-21-8206EdubisxXeoxw connective tissue disease (12 sources)Pain of right calf; Translations: [Pain in right lower leg] 51-49-8572BckcwikjEbweo connective tissue disease (1 source)Pain in right lower leg; Translations: [Pain in right lower leg]Onset: 33-80-0255YfihpiggVxofl disorders of stomach and duodenum (1 source)IndigestionOnset: 72-26-5294BevxkrnvVcxal ear and sense organ disorders (2 sources)Sensorineural hearing loss, unilateral, right ear, with unrestricted hearing on the contralateral side; Translations: [Sensorineural hearing loss, unilateral]31-40-8481BkjyreqBzpln ear and sense organ disorders (1 source)Sensorineural hearing loss, bilateral; Translations: [Sensorineural hearing loss, bilateral]92-99-7885CifsnvnCksiq ear and sense organ disorders (3 sources)Ear sensations - finding; Translations: [Other specified disorders of ear, bilateral]22-84-6912BhzvnjssDfjuv ear and sense organ disorders (1 source)Bilateral tinnitus; Translations: [Tinnitus, bilateral]02-11-2025 EpisodicOther ear and sense organ disorders (1 source)Other specified disorders of ear, bilateral; Translations: [Other specified disorders of ear, bilateral]Onset: 63-66-1074VravnzljLnxvg ear and sense organ disorders (1 source)Tinnitus, bilateral; Translations: [Tinnitus, bilateral]Onset: 07-98-7094MvewhusoRtlba female genital disorders (1 source)Abnormal uterine bleeding; Translations: [Abnormal uterine and vaginal bleeding, unspecified]98-01-2227EfuxnalRooxr female genital disorders (2 sources)Abnormal uterine and vaginal bleeding, unspecified; Translations: [Abnormal uterine and vaginal bleeding, unspecified]Onset: 72-59-0653Efguqpb Other gastrointestinal disorders (19 sources)Diarrhea; Translations: [Diarrhea, unspecified]73-01-5215Shhjywtg Other gastrointestinal disorders (1 source)HeartburnOnset: 18-34-7122PngibscfRnpsd lower respiratory disease (15 sources)Dyspnea on exertion; Translations: [Other forms of dyspnea]Episodic Other nutritional; endocrine; and metabolic disorders (1 source)Metabolic syndrome; Translations: [METABOLIC SYNDROME]Onset: 86-35-8375VyylgfhSzexb nutritional; endocrine; and metabolic disorders (20 sources)Body mass index 40+ - severely obese; Translations: [Body mass index (BMI) 50.0-59.9, adult]Onset: 311375-87-3350UlgkhdfIxxxq nutritional; endocrine; and metabolic disorders (1 source)Body mass index (BMI) 50.0-59.9, adultChronicOther nutritional; endocrine; and metabolic disorders (8 sources)Severe obesity; Translations: [Class 3 severe obesity with body mass index (BMI) of 60.0 to 69.9 inadult]09-44-0079MvdoxjcZreii nutritional; endocrine; and metabolic disorders (8 sources)Morbid obesity; Translations: [Body mass index (BMI) 60.0-69.9, adult]32-03-5915SmvqcaaCbkts nutritional; endocrine; and metabolic disorders (8 sources)Abnormal weight gain; Translations: [Abnormal weight gain]04-07-2025 EpisodicOther screening for suspected conditions (not mental disorders or infectious disease) (19 sources)Patient encounter status; Translations: [Encounter for screening mammogram for malignant neoplasm of breast]Onset: 523902-71-8271Qbscpvuf Other upper respiratory infections (19 sources)Acute maxillary sinusitis, unspecified; Translations: [Acute maxillary sinusitis]EpisodicOtitis media and related conditions (1 source)Other acute nonsuppurative otitis media, left earEpisodicResidual codes; unclassified (13 sources)Idiopathic sleep related non-obstructive alveolar hypoventilation; Translations: [Idiopathic sleep related nonobstructive alveolar hypoventilation] ChronicResidual codes; unclassified (20 sources)Obstructive sleep apnea syndrome; Translations: [Obstructive sleep apnea (adult) (pediatric)]Onset: 883605-08-2282NnmmcfoNbnohgpn codes; unclassified (1 source)Obstructive sleep apnea (adult) (pediatric)ChronicResidual codes; unclassified (1 source)Idiopathic sleep related nonobstructive alveolar hypoventilation ChronicResidual codes; unclassified (1 source)Sleep apnea; Translations: [Sleep apnea, unspecified]69-10-1334Tehjufu Residual codes; unclassified (1 source)Sleep apnea, unspecified; Translations: [Sleep apnea, unspecified] Onset: 95-31-7761JgvripbAvwxbpobs and history of mental health and substance abuse codes (2 sources)Standardized adult depression screening tool completed ; Translations: [Encounter for screening fordepression]Onset: EpisodicUnclassified (3 sources)CONTACT W/AND (SUSP) EXPOS COVID-19; Translations: [CONTACT W/AND (SUSP) EXPOS COVID-19]Onset: 98-43-2637Kzrxstaenqux (8 sources)R06.09 - Other forms of dyspneaUnclassified (1 source)Gynecologic ExamOnset: 37-08-3152Hudlkwlfkwex (1 source)Meniere'sOnset: 02-11-2025 Past or Other Problems Problem ClassificationProblemDateDocumented DateEpisodic/ChronicAbdominal pain (20 sources)Unspecified abdominal pain; Translations: [Flank pain]Onset: 02-25-2017 Resolved: 11-18-6854PetkpzpuImbctnn obstructive pulmonary disease and bronchiectasis (20 sources)Bronchitis; Translations: [Bronchitis, not specified as acute or chronic]Onset: 597202-73-5668BsrakqxtGauswzjrkf associated with dizziness or vertigo (20 sources)Benign paroxysmal positional vertigo; Translations: [Benign paroxysmal vertigo, unspecified ear]Onset: 992840-86-2020Dtlkvwet Deficiency and other anemia (20 sources)Anemia; Translations: [Anemia, unspecified]Onset: 02-06-2024 92-33-0268XckrjvmhR Codes: Natural/environment (20 sources)Cat scratch - wound; Translations: [Scratched by cat, initial encounter]Onset: 02-06-2024 Resolved: 470577-54-4079WtikenfmAychxflj; including migraine (20 sources)Headache; Translations: [Headache]Onset: EpisodicMood disorders (2 sources)Mood disordersOnset: Nausea and vomiting (20 sources)Nausea; Translations: [Nausea]Onset: 02-06-2024 Resolved: 329141-17-4991FgynpgxcEmqnnwufrlqji gastroenteritis (20 sources)Gastroenteritis; Translations: [Noninfective gastroenteritis and colitis, unspecified]Onset: 02-06-2024 Resolved: 987061-80-3024EowhnlykEmgch female genital disorders (1 source)Noninflammatory disorder of uterus, unspecified; Translations: [NONINFLAMMATORY DISORDER UTERUS UNS]Onset: 00-47-9117FvykazecMpljvlh cyst (20 sources)Unspecified ovarian cyst, right side; Translations: [Cyst of ovary] Onset: 84-52-5309EyaqcrvbXksobcf and strains (20 sources)Lower back injury; Translations: [Strain of muscle, fascia and tendon of lower back, initial encounter]Onset: 398589-24-0279Tqwsyuca Unclassified (1 source)CONTACT W/AND (SUSP) EXPOS COVID-19; Translations: [CONTACT W/AND (SUSP) EXPOS COVID-19]Onset: 36-67-3390Hwasadmazkga (2 sources)Onset: Viral infection (1 source)COVID-19 Results Test NameValueInterpretationReference NtvbqKwteribzLbP3w HPLC (Bld) [Mass fraction]Ordered By: April Ahumada on 15-73-4925CeJ2m (Bld) [Mass fraction]5.9 % [facility] HospitalBasophils Auto (Bld) [#/Vol]Ordered By: Ely Dodge on 79-07-7552Wxfmfuynv (Bld) [#/Vol]0.0 10 3/uL0.0-0.1FWood County HospitalBasophils/100 WBC Auto (Bld)Ordered By: Ely Echo on 53-85-0813Sfnyrbrgd/100 WBC (Bld)0.6 %0.2-2.0[facility] Eosinophils/100 WBC Auto (Bld)Ordered By: Ely Echo on 04-21-2025 Eosinophils/100 WBC (Bld)0.8 %Low0.9-7.0[facility] Erythrocyte distribution width Auto (RBC) [Ratio]Ordered By: Ely Echo on 84-39-2662Yucgxfxfrox distribution width (RBC) [Ratio]24.5 %High11.0-15.0 [facility] HospitalHematocrit Auto (Bld) [Volume fraction]Ordered By: Ely Echo on 60-12-7139Wjenaxrafs (Bld) [Volume fraction]36.8 % 36.0-48.0[facility] HospitalHemoglobin [Mass/volume] in Blood Ordered By: Ely Echo on 80-62-8101Negtzhezrx (Bld) [Mass/Vol]11.4 g/dLLow 12.0-16.0[facility] HospitalIron binding capacity [Mass/volume] in Serum or PlasmaOrdered By: Ely Echo on 82-21-5803Amcv binding capacity [Mass/Vol]320.0 ug/dL250.0-450.0[facility] HospitalIron saturation [Mass Fraction] in Serum or PlasmaOrdered By: Ely Echo on 77-34-4784Rtrj saturation [Mass fraction]10.6 %[facility] HospitalLaboratory - Chemistry and Chemistry - challengeOrdered By: Ely Echo on 04-21-2025 Ferritin [Mass/Vol]40.0 ng/mL8.0-252.0[facility] HospitalIron [Mass/Vol]34.0 ug/dLLow50.0-170.0[facility] HospitalLaboratory - Hematology and Cell countsOrdered By: Ely Echo on 46-31-3015Kgkkeoze granulocytes/100 WBC (Bld)0.5 %0.0-0.5FWood County Hospital Leukocytes [#/volume] corrected for nucleated erythrocytes in Blood by Automated counOrdered By: Elyfredy Dodge on 03-52-7447IOO corrected for nucl RBC Auto (Bld) [#/Vol]6.6 10 3/uL4.0-11.0[facility] HospitalLymphocytes Auto (Bld) [#/Vol]Ordered By: Ely Echo on 95-42-6928Ogpmbjkxrgy (Bld) [#/Vol]1.3 10 3/uL1.2-3.8[facility] HospitalLymphocytes/100 WBC Auto (Bld)Ordered By: Ely Echo on 37-24-5874Vmczkeqeueo/100 WBC (Bld)19.0 %Low20.5-60.0[facility] HospitalMCH Auto (RBC) [Entitic mass] Ordered By: Ely Echo on 19-56-8269LBY (RBC) [Entitic mass]24.8 pgLow 26.7-34.0[facility] HospitalMCHC Auto (RBC) [Mass/Vol]Ordered By: Ely Echo on 41-39-5414MGUI (RBC) [Mass/Vol]31.0 g/dL29.9-35.2FWood County HospitalMCV Auto (RBC) [Entitic vol]Ordered By: Ely Echo on 06-58-2891ZWH (RBC) [Entitic vol]80.2 fLLow81.0-99.0[facility] HospitalMonocytes Auto (Bld) [#/Vol]Ordered By: Ely Echo on 04-21-2025 Monocytes (Bld) [#/Vol]0.4 10 3/uL0.3-0.8[facility] Monocytes/100 WBC Auto (Bld)Ordered By: Ely Echo on 04-21-2025 Monocytes/100 WBC (Bld)5.6 %1.7-12.0[facility] HospitalNeutrophils Auto (Bld) [#/Vol]Ordered By: Ely Dodge on 91-34-7438Wcwepccrtwn (Bld) [#/Vol]4.8 10 3/uL1.4-6.5FWood County HospitalNeutrophils/100 WBC Auto (Bld)Ordered By: Ely Dodge on 02-71-9837Txyjidtfjwh/100 WBC (Bld)73.5 %43.0-75.0[facility] HospitalNo Panel InformationOrdered By: Ely Dodge on 20-30-6132Petlfojyqhl # (Auto)0.1 10 3/uL0.0-0.7FWood County HospitalImmature Granulocyte # (Auto)0.03 10 3/uL0.00-0.03 [facility] HospitalPlatelet mean volume Auto (Bld) [Entitic vol] Ordered By: Ely Dodge on 13-48-8710Zrktokpz mean volume (Bld) [Entitic vol] 10.0 fL9.5-13.5FWood County HospitalPlatelets Auto (Bld) [#/Vol] Ordered By: Ely Echo on 02-00-7418Xeyszpqal (Bld) [#/Vol]176 10 3/uL 150-450[facility] HospitalRBC Auto (Bld) [#/Vol]Ordered By: Ely Echo on 63-78-4342TQX (Bld) [#/Vol]4.59 10 6/uL4.20-5.40[facility] HospitalMAMM SCREENING BILATERAL W CADon 78-39-9782ILGM SCREENING BILATERAL W CADMAMM SCREENING BILATERAL W CAD NATI K TUCKER 1985 [id number] EXAM: MAMM SCREENING BILATERAL W CAD, 04/16/2025 [...] 04/17/2025 12:24 PM 2 b MAMM 1 YRNormalMagruder HospitalCBC (NO DIFF)on 43-06-9007Jcprgxbotgo distribution width (RBC) [Ratio]30.1 %High11.5-15[facility] Comment on above:Performed By: #### CBC #### [facility] ([facility]) [address] [place] [address] VIRHematocrit (Bld) [Volume fraction]37.6 %Pzoyfd46-45RwvNlfsdfMagruder HospitalComment on above:Performed By: #### CBC #### [facility] ([facility]) [address] [place] [address] VIRHemoglobin (Bld) [Mass/Vol]12.4 g/lTAswmql65.7-15.5PNationwide Children's HospitalComment on above:Performed By: #### CBC #### [facility] ([facility]) [address] [place] [address] [facility] (RBC) [Entitic mass]24.7 icVyy30-51IhrTsenkhMagruder HospitalComment on above:Performed By: #### CBC #### [facility] ([facility]) [address] [place] [address] [facility] (RBC) [Mass/Vol]32.9 g/hWCwcgzd01-26QjgKuaxjeMagruder HospitalComment on above:Performed By: #### CBC #### [facility] ([facility]) [address] [place] [address] VIRMCV (RBC) [Entitic vol]75 rKFnj11-473DmdArfaciMagruder HospitalComment on above:Performed By: #### CBC #### [facility] ([facility]) [address] [place] [address] VIRPlatelet mean volume (Bld) [Entitic vol]8.7 fLNormal7-12 [facility] HospitalComment on above:Performed By: #### CBC #### [facility] ([facility]) [address] [place] [address] VIRPlatelets (Bld) [#/Vol]197 10*3/hAKtzijk791-004KhcDgkqhlMagruder HospitalComment on above:Performed By: #### CBC #### [facility] ([facility]) [address] [place] [address] VIRRBC COUNT5.00 X10E12/LNormal3.8-5.2PNationwide Children's HospitalComment on above:Performed By: #### CBC #### [facility] ([facility]) [address] [place] [address] VIRWBC (Bld) [#/Vol]6.7 10*3/uLNormal4-11Mag[facility]uder HospitalComment on above:Performed By: #### CBC #### [facility] ([facility]) [address] [place] [address] VIRFERRITINon 11-91-7955Aoshetxj [Mass/Vol]28 ng/yINcpddo05-728 [facility] HospitalComment on above:Performed By: #### FERR #### [facility] ([facility]) [address] [place] [address] VIRIRON AND TIBCon 20-07-7953Gabs [Mass/Vol]47 ug/yDCus06-645 [facility] HospitalComment on above:Performed By: #### FEPR #### [facility] ([facility]) [address] [place] [address] VIRIRON BHQHOSK495 ug/wHLfbkfl783-768QkiFuksruMagruder Hospital Comment on above:Performed By: #### FEPR #### [facility] ([facility]) [address] [place] [address] VIRIRON RZNZXOBNAA57 % OVVKSXFPYZZbx80-43GisNcwfxj [facility] HospitalComment on above:Performed By: #### FEPR #### [facility] ([facility]) [address] [place] [address] VIRTransferrin [Mass/Vol]277 mg/xCIsvpof441-668OztReehwz [facility] HospitalComment on above:Performed By: #### FEPR #### [facility] ([facility]) [address] [place] [address] VIRTHYROID PROFILE INCLUDES TSH FT4on 74-25-8593Solw T4 [Mass/Vol]0.87 ng/dLNormal0.61-1.60ProChildren'S Medical Center DallasComment on above: Performed By: #### THYR #### [facility] ([facility]) [address] [place] [address] VIRTSH3.41 uIU/mLNormal0.49-4.67[facility] Comment on above:Performed By: #### THYR #### [facility] ([facility]) [address] [place] [address] VIRUS PELVIC WITH TRANSVAGINALon 22-89-5800UG PELVIC WITH TRANSVAGINALUS PELVIC WITH TRANSVAGINAL Clinical [...] by Baldo Shen MD on 04/16/2025 12:42 [facility] PrebleHIGH RISK HPV W/GENOon 65-65-4397YNI 16NegativeNormalNegativeLutheran Hospital Ambulatory PPGComment on above:Performed By: #### HPV #### [facility] ([facility]) [address] [place] [address] VIRHPV 18NegativeNormalNegativeLutheran Hospital Ambulatory PPGComment on above:Performed By: #### HPV #### [facility] ([facility]) [address] [place] [address] VIROTHER HIGH RISK HPVNegativeNormalNegOhio State Health System Ambulatory PPGComment on above:Result Comment: HPV types 31, 33, 35, 39, 45, 52, 56, 58, 59, 66, and 68 DNA were undetectable.Performed By: #### HPV #### [facility] ([facility]) [address] [place] [address] VIRCeliacon 30-03-6056Ceojuabava Gliadin Abs, BnJ2Bdwlma1-13Wwt [facility] Physician GroupComment on above:Result Comment: Negative 0 - 19 Weak Positive 20 - 30 Moderate to Strong Positive >30Performed By: #### CELIAC #### [facility] ,Deamidated Gliadin Abs, UfS1Bychog3-45Plw [facility]health Physician GroupComment on above:Result Comment: Negative 0 - 19 Weak Positive 20 - 30 Moderate to Strong Positive >30Performed By: #### CELIAC #### [facility] ,Endomysial Antibody IgANegativeNormalNegativeThe [facility] Comment on above:Performed By: #### CELIAC #### [facility] ,Immunoglobulin A, Qn, Itusv739 mg/iPKrjcll80-132Eoa [facility] Comment on above:Result Comment: Performed at: [facility] [address] [place], [place] [id number] Medical Editor: Eddie You PhD, Phone: [phone] PERFORMED BY: [facility] José [place] [id number] PATHOLOGIST CONFERENCE MANAGER ABIODUN YEPEZ M.D.Performed By: #### CELIAC #### [facility] ,T-Transglutaminase (tTG) IgA<0Qrvufl6-8Qqg [facility] Physician GroupComment on above:Result Comment: Negative 0 - 3 Weak Positive 4 - 10 Positive >10 Tissue Transglutaminase (tTG) has been identified as the endomysial antigen. Studies have demonstr- ated that endomysial IgA antibodies have over 99% specificity for gluten sensitive enteropathy.Performed By: #### CELIAC #### [facility] ,T-Transglutaminase (tTG) ZcY6Guldtb7-3Hvw [facility] Physician GroupComment on above:Result Comment: Negative 0 - 5 Weak Positive 6 - 9 Positive >9Performed By: #### CELIAC #### [facility] ,Serum gliadin peptide IgA antibody assay (units/volume)Ordered By: Adonis Ferguson on 02-92-7600Kjeodkf peptide IgA Qn (S)6 units0-[facility] HospitalComment on above:Negative 0 - 19 Weak Positive 20 - 30 Moderate to Strong Positive >30Serum gliadin peptide IgG antibody assay (units/volume) Ordered By: Adonis Ferguson on 17-26-9714Fjnijyy peptide IgG Qn (S)2 units0-19 [facility] HospitalComment on above:Negative 0 - 19 Weak Positive 20 - 30 Moderate to Strong Positive >30Serum or plasma IgA measurement (mass/volume)Ordered By: Adonis Ferguson on 59-54-1494HbY [Mass/Vol]295 mg/dL 87-352[facility] HospitalComment on above:Performed at: [facility] [address] [place], [place] [id number] Director: Eddie You PhD, Phone: [phone] tissue transglutaminase (tTG) IgA antibody assay (units/volume)Ordered By: Adonis Ferguson on 26-08-0749gOW IgA Qn (S)<2 U/mL0-3FWood County HospitalComment on above:Negative 0 - 3 Weak Positive 4 - 10 Positive >10 Tissue Transglutaminase (tTG) has been identified as the endomysial antigen. Studies have demonstr- ated that endomysial IgA antibodies have over 99% specificity for gluten sensitive enteropathy.Serum tissue transglutaminase (tTG) IgG antibody assay (units/volume)Ordered By: Adonis Ferguson on 64-05-1626kHZ IgG Qn (S)3 U/mL0-5FWood County HospitalComment on above:Negative 0 - 5 Weak Positive 6 - 9 Positive >9MR BRAIN IAC W WO CONTon 97-19-5527KG BRAIN IAC W WO CONTMR BRAIN IAC [...] Jonnathan Espinoza MD on 03/07/2025 3:45 PMNormalProMedica John Muir Concord Medical CenterAlbumin [Mass/volume] in Serum or PlasmaOrdered By: Eyl Dodge on 81-94-0316Nbgxvye [Mass/Vol]4.0 g/dL2.9-4.4FWood County Hospital Basophils Auto (Bld) [#/Vol]Ordered By: Ely Dodge on 73-58-2605Wguxypglw (Bld) [#/Vol]0.0 10 3/uL0.0-0.1FWood County HospitalBasophils/100 WBC Auto (Bld)Ordered By: Ely Dodge on 18-31-2863Wzkndltxz/100 WBC (Bld)0.6 %0.2-2.0[facility] HospitalEosinophils/100 WBC Auto (Bld)Ordered By: Ely Dodge on 41-33-3913Zaefuelztiy/100 WBC (Bld)0.7 %Low0.9-7.0 [facility] HospitalErythrocyte distribution width Auto (RBC) [Ratio]Ordered By: Ely Dodge on 64-13-0924Nrssxjvzkzr distribution width (RBC) [Ratio]17.7 %High11.0-15.0[facility] HospitalGlobulin Calc (S) [Mass/Vol]Ordered By: Ely Dodge on 48-04-8279Mgtakqjq (S) [Mass/Vol]4.5 g/dLChillicothe HospitalGlomerular filtration rate (GFR) estimation in non- AmericanOrdered By: Ely Dodge on 03-04-2025 GFR/1.73 sq M.predicted among non-blacks MDRD (S/P/Bld) [Vol rate/Area] mL/min/{1.73_m2}>=60 mL/min/1.73m 2FWood County HospitalHematocrit Auto (Bld) [Volume fraction]Ordered By: Ely Dodge on 34-93-4378Ieryqynkqr (Bld) [Volume fraction]32.6 %Low36.0-48.0[facility] Hemoglobin [Mass/volume] in BloodOrdered By: Ely Dodge on 03-04-2025 Hemoglobin (Bld) [Mass/Vol]9.3 g/dLLow12.0-16.0[facility] IgA [Mass/volume] in Serum or PlasmaOrdered By: Elyjoana Dodge on 67-15-2379RjD [Mass/Vol]333 mg/aT10-778RcmkrqeayChillicothe HospitalIgG [Mass/volume] in Serum or PlasmaOrdered By: Ely Echo on 67-36-3609RhL [Mass/Vol]964 mg/dL 586-1602Ch[facility] HospitalIgM [Mass/volume] in Serum or Plasma Ordered By: Ely Echo on 15-44-9331SwE [Mass/Vol]286 mg/jPHnpceera91-477 [facility] HospitalImmunoglobulin light chains.kappa.free [Mass/volume] in SerumOrdered By: Ely Dodge on 50-01-6460Worxgykfxbskcv light chains.kappa.free (S) [Mass/Vol]24.4 mg/LAbnormal3.3-19.4FWood County HospitalImmunoglobulin light chains.kappa.free/Immunoglobulin light chains.lambda.free [MassOrdered By: Ely Echo on 03-04-2025 Immunoglobulin light chains.kappa.free/Immunoglobulin light chains.lambda.free (S) [Mass ratio]1.120.26-1.65[facility] HospitalComment on above: Performed at: - [facility] [id number] Director: Eddie You PhD, Phone: [phone] light chains.lambda.free [Mass/volume] in Serum or PlasmaOrdered By: Ely Dodge on 42-08-3189Rhzzobovdxgajb light chains.lambda.free [Mass/Vol]21.7 mg/L5.7-26.3 [facility] HospitalIron binding capacity [Mass/volume] in Serum or PlasmaOrdered By: Ely Dodge on 58-00-8648Yqwy binding capacity [Mass/Vol] 419.0 ug/dL250.0-450.0[facility] HospitalIron saturation [Mass Fraction] in Serum or PlasmaOrdered By: Ely Dodge on [id number] saturation [Mass fraction]5.0 %[facility]Laboratory - Chemistry and Chemistry - challengeOrdered By: Ely Dodge on 03-04-2025 Albumin [Mass/Vol]3.9 g/dL3.4-5.0[facility] HospitalALP [Catalytic activity/Vol]150 U/[id number] HospitalALT [Catalytic activity/Vol]45 U/T09-97JqhulwfleChillicothe HospitalAST [Catalytic activity/Vol]25 U/R30-85IxtuteagsChillicothe HospitalBilirubin [Mass/Vol]0.6 mg/dL0.2-1.0[facility] HospitalCalcium [Mass/Vol]9.5 mg/dL 8.5-10.1FWood County HospitalChloride [Moles/Vol]100 mmol/L98-107 [facility] HospitalCO2 [Moles/Vol]29.4 mmol/L21.0-32.0[facility] HospitalCobalamin (Vitamin B12) [Mass/Vol]498 pg/pY650-0648 [facility] HospitalComment on above:Performed at: - [facility] [id number] Director: Eddie You PhD, Phone: [phone] [Mass/Vol]0.73 mg/dL0.55-1.02[facility]othe HospitalFerritin [Mass/Vol]9.0 ng/mL8.0-252.0[facility] HospitalGFR/1.73 sq M.predicted MDRD (S/P/Bld) [Vol rate/Area]mL/min/{1.73_m2}>=60 mL/min/1.73m 2FWood County HospitalGlucose [Mass/Vol]108 mg/dLHigh 74-106Ch[facility]icothe HospitalIron [Mass/Vol]21.0 ug/dLLow50.0-170.0 [facility] HospitalLDH [Catalytic activity/Vol]133 U/L81-234 [facility] HospitalPotassium [Moles/Vol]3.4 mmol/LLow3.5-5.1 [facility] HospitalProtein [Mass/Vol]8.4 g/dLHigh6.4-8.2FKing's Daughters Medical Center Ohioodium [Moles/Vol]140 mmol/X004-606RzpamglwbChillicothe HospitalUrea nitrogen [Mass/Vol]11.0 mg/dL7.0-18.0[facility] HospitalUrea nitrogen/Creatinine [Mass ratio]15.1 mg/mgChillicothe HospitalLaboratory - Hematology and Cell countsOrdered By: Ely Dodge on 80-26-9361GGT (Bld) [Velocity]108 mm/hHigh<=20[facility] HospitalImmature granulocytes/100 WBC (Bld)0.7 %High0.0-0.5FWood County HospitalLeukocytes [#/volume] corrected for nucleated erythrocytes in Blood by Automated counOrdered By: Ely Dodge on 81-66-3403RIK corrected for nucl RBC Auto (Bld) [#/Vol]7.2 10 3/uL4.0-11.0[facility] Lymphocytes Auto (Bld) [#/Vol]Ordered By: Ely Dodge on 03-04-2025 Lymphocytes (Bld) [#/Vol]1.1 10 3/uLLow1.2-3.8[facility] Lymphocytes/100 WBC Auto (Bld)Ordered By: Ely Dodge on 03-04-2025 Lymphocytes/100 WBC (Bld)15.8 %Low20.5-60.0[facility] HospitalMCH Auto (RBC) [Entitic mass]Ordered By: Ely Dodge on 54-23-4436FCL (RBC) [Entitic mass]19.7 pgLow26.7-34.0[facility] HospitalComment on above:HYPOCHROMASIA 1+MCHC Auto (RBC) [Mass/Vol]Ordered By: Ely Dodge on 15-50-0886UHOG (RBC) [Mass/Vol]28.5 g/dLLow29.9-35.2FWood County HospitalMCV Auto (RBC) [Entitic vol]Ordered By: Ely Dodge on 93-60-9604ZDS (RBC) [Entitic vol]69.2 fLLow81.0-99.0[facility] HospitalMonocytes Auto (Bld) [#/Vol]Ordered By: Ely Dodge on 01-84-9742Lbsfyafea (Bld) [#/Vol]0.3 10 3/uL0.3-0.8[facility] HospitalMonocytes/100 WBC Auto (Bld)Ordered By: Ely Dodge on 30-93-8436Sjeoeljbq/100 WBC (Bld)4.5 % 1.7-12.0[facility] HospitalNeutrophils Auto (Bld) [#/Vol]Ordered By: Ely Dodge on 86-45-2512Rxsmovpjxvy (Bld) [#/Vol]5.6 10 3/uL1.4-6.5 [facility] HospitalNeutrophils/100 WBC Auto (Bld)Ordered By: Ely Dodge on 42-17-8808Brtcouyvaqz/100 WBC (Bld)77.7 %High43.0-75.0 [facility] HospitalNo Panel InformationOrdered By: Ely Dodge on 28-33-1568R-Reactive Protein, Quantitative2.01 mg/dLHigh<=0.50[facility] HospitalEosinophils # (Auto)0.1 10 3/uL0.0-0.7FWood County HospitalImmature Granulocyte # (Auto)0.05 10 3/uLHigh0.00-0.03[facility] HospitalProtein Electrophoresis M-SpikeNot Observed g/dLNot ObservedChillicothe HospitalProtein Electrophoresis NoteComment. [facility] HospitalComment on above:Protein electrophoresis scan will follow via computer,mail, or aerodynamic consultant delivery.Platelet mean volume Auto (Bld) [Entitic vol]Ordered By: Ely Dodge on 42-42-9075Zgfmwtzk mean volume (Bld) [Entitic vol]9.8 fL9.5-13.5FWood County HospitalPlatelets Auto (Bld) [#/Vol]Ordered By: Ely Echo on 40-90-2652Sgujbognk (Bld) [#/Vol]216 10 3/hI206-368DiinbfcamChillicothe HospitalProtein [Mass/volume] in Serum or PlasmaOrdered By: Elyjoana Dodge on 93-53-0979Eqrniit [Mass/Vol]7.5 g/dL6.0-8.5 [facility] HospitalRBC Auto (Bld) [#/Vol]Ordered By: Ely Echo on 56-41-1228HRC (Bld) [#/Vol]4.71 10 6/uL4.20-5.40[facility] HospitalReticulocytes/100 RBC Auto (Bld)Ordered By: Ely Dodge on 69-97-9610Rmxqsdsqzczvq/100 RBC (Bld)2.68 %0.60-3.10[facility] Columbuserum globulin measurement (mass/volume)Ordered By: Ely Dodge on 47-05-8517Iyyhklap (S) [Mass/Vol]3.5 g/dL2.2-3.9[facility] Columbuserum or plasma albumin/globulin mass ratioOrdered By: Ely Dodge on 97-46-8550Sllbvsu/Globulin [Mass ratio]0.9 {ratio}[facility] HospitalAlbumin/Globulin [Mass ratio]1.2 {ratio}0.7-1.7FKing's Daughters Medical Center Ohioerum or plasma alpha 1 globulin measurement by electrophoresis (mass/volume)Ordered By: Ely Dodge on 56-79-8833Vyfyh 1 globulin Elph [Mass/Vol]0.3 g/dL0.0-0.4FKing's Daughters Medical Center Ohioerum or plasma alpha 2 globulin measurement by electrophoresis (mass/volume)Ordered By: Ely Dodge on 48-48-6625Naryz 2 globulin Elph [Mass/Vol]0.8 g/dL0.4-1.0[facility] Columbuserum or plasma anion gap determinationOrdered By: Ely Dodge on 21-49-7568Rnfjn gap [Moles/Vol]14.0 mmol/LFKing's Daughters Medical Center Ohioerum or plasma beta globulin measurement by electrophoresis (mass/volume)Ordered By: Ely Dodge on 24-93-5022Rsof globulin Elph [Mass/Vol]1.3 g/dL0.7-1.3FKing's Daughters Medical Center Ohioerum or plasma gamma globulin measurement by electrophoresis (mass/volume)Ordered By: Ely Dodge on 74-33-7135Mpuxw globulin Elph [Mass/Vol]1.1 g/dL0.4-1.8[facility] Columbuserum or plasma immunoelectrophoresis interpretationOrdered By: Ely Dodge on 54-25-8767Hljmlrkhaqgkvm IEP [Interp]Comment.[facility] HospitalComment on above:No monoclonality detected.US venous duplex LE RTon 78-54-8589MY venous duplex LE [facility] [place] [address] Ultrasound Report Signed Patient: Nati Santos MR#: [id number] : 1985 Acct:[id number] Age/Sex: 39 / F ADM Date: 02/06/25 Loc: ER Room: Type: [facility] ER Attending Dr: Ordering Provider: Bartolo Lyons [...] Hernandez M.D. 02/07/2025 10:31 AM Dictation Location: [place] [address] Tech: Vanda Priyank Transcribed By: JARVIS 02/07/25 103 Dictated By: Luís Hernandez MD 02/07/25 1031 Signed By: 02/07/25 1031[facility] Physician GroupAlanine aminotransferase [Enzymatic activity/volume] in Serum or PlasmaOrdered By: Bartolo Lyons on 53-18-2819ZNA [Catalytic activity/Vol]20 U/L7-52[facility] HospitalComment on above:Performed By: #### CMP, CK, DIFF CBC, HS TROP #### [facility] [address] [place] [address] USAAlbumin [Mass/volume] in Serum or Plasma by Bromocresol green (BCG) dye binding methoOrdered By: Bartolo Lyons on 64-56-9893Ryogjbx BCG dye [Mass/Vol]4.2 g/dL3.5-5.7FWood County HospitalAlkaline phosphatase [Enzymatic activity/volume] in Serum or PlasmaOrdered By: Bartolo Lyons on 31-09-3898HPB [Catalytic activity/Vol]106 U/JIyge86-143TthikecruChillicothe HospitalComment on above:Performed By: #### CMP, CK, DIFF CBC, HS TROP #### [facility] [address] [place] [address] USAAnisocytosis [Presence] in Blood by Light microscopy Ordered By: Bartolo Lyons on 24-00-8473Pwvjliugaxyd Ql (Bld)ModerateChillicothe HospitalComment on above:Performed By: #### CMP, CK, DIFF CBC, HS TROP #### [facility] [address] [place] [address] USAAppearance of UrineOrdered By: Bartolo Lyons on 02-06-2025 Appearance (U)ClearCleMercy Health – The Jewish HospitalComment on above:Order Comment: Name Collection Type:: Clean-Voided MidstreamPerformed By: #### UA #### [facility] [address] [place] [address] USAAspartate aminotransferase [Enzymatic activity/volume] in Serum or PlasmaOrdered By: Bartolo Lyons on 66-28-7643CAW [Catalytic activity/Vol]18 U/C71-96DjoqhpbiuChillicothe HospitalComment on above: Performed By: #### CMP, CK, DIFF CBC, HS TROP #### [facility] [address] [place] [address] USABasophils Auto (Bld) [#/Vol]Ordered By: Bartolo Lyons on 10-14-8537Cdoxqywgk (Bld) [#/Vol]N/[facility] Basophils/100 WBC Auto (Bld)Ordered By: Bartolo Lyons on 17-94-7042Idzfowgqf/100 WBC (Bld)N/[facility] HospitalBilirubin Test strip Ql (U)Ordered By: Bartolo Lyons on 04-15-4445Daakgpdpi Ql (U)NegativeNegativeChillicothe HospitalBilirubin.total [Mass/volume] in Serum or PlasmaOrdered By: Bartolo Lyons on 71-48-3037Difpmyyxn [Mass/Vol]0.6 mg/dL0.3-1.0[facility] HospitalComment on above:Performed By: #### CMP, CK, DIFF CBC, HS TROP #### [facility] [address] [place] [address] USACalcium [Mass/volume] in Serum or PlasmaOrdered By: Bartolo Lyons on 52-66-7258Qufdojs [Mass/Vol]9.5 mg/dL8.6-10.3FWood County HospitalComment on above:Performed By: #### CMP, CK, DIFF CBC, HS TROP #### [facility] [address] [place] [address] USACarbon dioxide, total [Moles/volume] in Serum or Plasma Ordered By: Bartolo Lyons on 47-00-0203RV0 [Moles/Vol]28.7 mmol/L21.0-31.0 [facility] HospitalComment on above:Performed By: #### CMP, CK, DIFF CBC, HS TROP #### [place] [address] USAChloride [Moles/volume] in Serum or PlasmaOrdered By: Bartolo Lyons on 94-58-6971Eicsezlf [Moles/Vol]100 mmol/M70-283CusjyubshChillicothe HospitalComment on above:Performed By: #### CMP, CK, DIFF CBC, HS TROP #### [place] [address] USAColor of Urine by AutoOrdered By: Bartolo Lyons on 14-56-2780Biqzo (U)Light-yellowYellowChillicothe HospitalComment on above:Order Comment: Name Collection Type:: Clean-Voided MidstreamPerformed By: #### UA #### [place] [address] USAComprehensive Metabolic Panelon 91-41-9688Qvfgish [Mass/Vol]4.2 g/dLNormal3.5-5.7The Firsthealth Physician GroupComment on above: Performed By: #### CMP, CK, DIFF CBC, HS TROP #### [place] [address] USACreatinine Clr Calc Vfwzkuhb610.95NormalThe Firsthealth Physician GroupComment on above:Result Comment: PERFORMED BY: [place] [address] PATHOLOGIST CONFERENCE MANAGER ABIODUN YEPEZ M.D.Performed By: #### CMP, CK, DIFF CBC, HS TROP #### [place] [address] USAGFR/1.73 sq M.predicted MDRD (S/P/Bld) [Vol rate/Area] mL/min/{1.73_m2}NormalThe Firsthealth Physician GroupComment on above:Performed By: #### CMP, CK, DIFF CBC, HS TROP #### [place] [address] USACreatine kinase [Enzymatic activity/volume] in Serum or PlasmaOrdered By: Bartolo Lyons on 83-11-1077UG [Catalytic activity/Vol]35 U/L 30-223Chillicothe HospitalComment on above:Performed By: #### CMP, CK, DIFF CBC, HS TROP #### [facility] [address] [place] [address] USACreatinine [Mass/volume] in Serum or PlasmaOrdered By: Bartolo Lyons on 88-57-5260Iavzmleizb [Mass/Vol]0.65 mg/dL0.60-1.20[facility] HospitalComment on above:Performed By: #### CMP, CK, DIFF CBC, HS TROP #### [place] [address] USADiff and CBCon 65-30-1842Zissd PlateletsSlightHCA Florida [facility] Hospital Physician GroupComment on above:Result Comment: PERFORMED BY: [place] [address] PATHOLOGIST CONFERENCE MANAGER ABIODUN YEPEZ M.D.Performed By: #### CMP, CK, DIFF CBC, HS TROP #### [place] [address] USAMean Corpuscular HGB Conc30.6 g/dLLow32.0-35.0The Firsthealth Physician GroupComment on above:Performed By: #### CMP, CK, DIFF CBC, HS TROP #### [place] [address] USAMicrocytosisModerateHCA Florida Lake [facility] Hospital Physician Group Comment on above:Performed By: #### CMP, CK, DIFF CBC, HS TROP #### [place] [address] USAMonocytes/100 WBC (Bld)20.12 %High0.00-20.00The Firsthealth Physician GroupComment on above:Result Comment: For adults in ED, MDW > 20.0 may be associated with a higher risk of sepsis during the first 12 hrs of hospital admissionPerformed By: #### CMP, CK, DIFF CBC, HS TROP #### [place] [address] USAMyelocytes1 %High0-0The Firsthealth Physician GroupComment on above:Performed By: #### CMP, CK, DIFF CBC, HS TROP #### [place] [address] USAOvalocytesSKindred Hospital - Greensboro Physician GroupComment on above:Performed By: #### CMP, CK, DIFF CBC, HS TROP #### [place] [address] USAPlatelet EstimateNormalNormalNormJackson West Medical Center Physician GroupComment on above:Performed By: #### CMP, CK, DIFF CBC, HS TROP #### [place] [address] USAPoikilocytosisSKindred Hospital - Greensboro Physician Group Comment on above:Performed By: #### CMP, CK, DIFF CBC, HS TROP #### [place] [address] USAStomatocytesSKindred Hospital - Greensboro Physician Group Comment on above:Performed By: #### CMP, CK, DIFF CBC, HS TROP #### [place] [address] USAWhite Blood Count6.9 [CFU]/mLNormal3.8-11.6The Firsthealth Physician GroupComment on above:Performed By: #### CMP, CK, DIFF CBC, HS TROP #### [place] [address] USAECG 12 lead ECGon 11-67-8345YTX 12 lead [facility]GFIRELANDS [facility] [place] [address] [place] [address] Electrocardiograph Report Signed Patient: Nati Santos MR#: [id number] : 1985 Acct:[id number] Age/Sex: 39 / F ADM Date: 02/06/25 Loc: ER Room: Type: [facility] ER Attending Dr: Ordering Provider: Bartolo Lyons [...] MUS Signed By Mignon Ma MD 02/07/25 0034[facility] Physician GroupEosinophils Auto (Bld) [#/Vol]Ordered By: Bartoloeunice Lyons on 58-90-1761Bddtpwisycz (Bld) [#/Vol]N/[facility] HospitalEosinophils/100 WBC Auto (Bld)Ordered By: Bartolo Lyons on 97-74-8292Kpyhssrojid/100 WBC (Bld)N/[facility] Erythrocyte distribution width [Ratio] by Automated countOrdered By: Bartolo Lyons on 59-76-8645Vxjigthkwmf distribution width (RBC) [Ratio]18.2 %High 11.9-15.3FWood County HospitalComment on above:Performed By: #### CMP, CK, DIFF CBC, HS TROP #### [facility] [address] [place] [address] USAErythrocyte morphology finding [Identifier] in Blood Ordered By: Bartolo Lyons on 62-05-8181YYT morphology finding Nom (Bld)N/A [facility]othe HospitalErythrocytes [#/volume] in Blood by Automated countOrdered By: Bartolo Lyons on 70-77-9241PJS (Bld) [#/Vol]4.49 10*6/uL 3.60-5.00Ch[facility] HospitalComment on above:Performed By: #### CMP, CK, DIFF CBC, HS TROP #### [facility] [address] [place] [address] USAGlucose [Mass/volume] in Serum or PlasmaOrdered By: Bartolo Lyons on 93-05-1033Qrlixjc [Mass/Vol]125 mg/lPOmlj41-197Azvjilaha Regional Medical CenterComment on above:ADA recommended reference [...] CBC, HS TROP #### [facility] [address] [place] [address] USAGlucose [Mass/volume] in Urine by Test stripOrdered By: Bartolo Lyons on 69-43-9227Ervjazm Test strip (U) [Mass/Vol]Normal mg/dLNormal [facility] HospitalHematocrit [Volume Fraction] of Blood by Automated countOrdered By: Bartolo Lyons on 62-35-9647Yrvvnjvfir (Bld) [Volume fraction]28.8 %Low34.0-46.4FWood County HospitalComment on above: Performed By: #### CMP, CK, DIFF CBC, HS TROP #### [facility] [address] [place] [address] USAHemoglobin Test strip Ql (U)Ordered By: Bartolo Lyons on 89-74-9694Gejvqmbnrb Ql (U)NegativeNegSelect Medical [facility] Hemoglobin [Mass/volume] in BloodOrdered By: Bartolo Lyons on 02-06-2025 Hemoglobin (Bld) [Mass/Vol]8.8 g/dLLow11.8-15.4FWood County Hospital Comment on above:Performed By: #### CMP, CK, DIFF CBC, HS TROP #### [facility] [address] [place] [address] USAKetones [Presence] in Urine by Test stripOrdered By: Bartolo Lyons on 25-59-0462Osmyzdr Ql (U)NegativeNegSelect Medical Cleveland Clinic Rehabilitation Hospital, BeachwoodComment on above:Order Comment: Name Collection Type:: Clean- Voided MidstreamPerformed By: #### UA #### [facility] [address] [place] [address] USALeukocyte esterase [Presence] in Urine by Test strip Ordered By: Bartolo Lyons on 75-16-6416Asrhsleqd esterase Test strip Ql (U) NegativeNegativeChillicothe HospitalComment on above:Order Comment: Name Collection Type:: Clean-Voided MidstreamPerformed By: #### UA #### [facility] [address] [place] [address] USALeukocytes [#/volume] corrected for nucleated erythrocytes in Blood by Automated counOrdered By: Bartolo Lyons on 48-54-7553LEU corrected for nucl RBC Auto (Bld) [#/Vol]6.9 10*3/uL3.8-11.6FWood County HospitalLeukocytes [#/volume] in Blood by Automated countOrdered By: Bartolo Lyons on 97-23-8445QEO (Bld) [#/Vol]6.9 10*3/uL3.8-11.6FWood County HospitalComment on above:Performed By: #### CMP, CK, DIFF CBC, HS TROP #### [place] [address] USALymphocytes Auto (Bld) [#/Vol]Ordered By: Bartolo Lyons on 96-15-2511Oyqsbsbqpqg (Bld) [#/Vol]N/[facility] Lymphocytes/100 WBC Auto (Bld)Ordered By: Bartolo Lyons on 02-06-2025 Lymphocytes/100 WBC (Bld)N/[facility] HospitalLymphocytes/100 leukocytes in Blood by Manual countOrdered By: Bartolo Lyons on 02-06-2025 Lymphocytes/100 WBC (Bld)11 %Sif16-66FecqnctjoChillicothe HospitalComment on above:Performed By: #### CMP, CK, DIFF CBC, HS TROP #### [place] [address] USAMCH [Entitic mass] by Automated countOrdered By: Bartolo Lyons on 37-28-7942PZZ (RBC) [Entitic mass]19.6 pgLow24.7-34.3FWood County HospitalComment on above:Performed By: #### CMP, CK, DIFF CBC, HS TROP #### [facility] [address] [place] [address] USAMCHC Auto (RBC) [Mass/Vol]Ordered By: Bartolo Lyons on 01-67-9201MCRK (RBC) [Mass/Vol]30.6 g/dLLow32.0-35.0[facility] HospitalMCV [Entitic volume] by Automated countOrdered By: Bartolo Lyons on 14-34-1537WST (RBC) [Entitic vol]64.2 pAKvy34-192WjcdiwjxjChillicothe HospitalComment on above:Performed By: #### CMP, CK, DIFF CBC, HS TROP #### [facility] [address] [place] [address] USAMicrocytes LM Ql (Bld)Ordered By: Bartolo Lyons on 02-24-7475Pitqmrnzdj Ql (Bld)ModerateChillicothe HospitalMonocyte distribution width [Entitic volume] in Blood by AutomatedOrdered By: Bartolo Lyons on 92-49-5506Ibncpyte distribution width Auto (Bld) [Entitic vol]20.12 % High0.00-20.00[facility] HospitalComment on above:For adults in ED, MDW > 20.0 may be associated with a higher risk of sepsis during the first 12 hrs of hospital admissionMonocytes Auto (Bld) [#/Vol]Ordered By: Bartolo Lyons on 53-32-8611Tkodgfrsj (Bld) [#/Vol]N/[facility] Monocytes/100 WBC Auto (Bld)Ordered By: Bartolo Lyons on 08-10-2849Utzgemera/100 WBC (Bld)N/[facility] HospitalMonocytes/100 leukocytes in Blood by Manual countOrdered By: Bartolo Lyons on 81-71-3551Zinehekez/100 WBC (Bld)5 % 2-11[facility] HospitalComment on above:Performed By: #### CMP, CK, DIFF CBC, HS TROP #### [facility] [address] [place] [address] USAMyelocytes/100 WBC Manual cnt (Bld)Ordered By: Bartolo Lyons on 90-46-4925Dctnaqgfzm/100 WBC (Bld)1 %High0-0Ch[facility] HospitalNeutrophils Auto (Bld) [#/Vol]Ordered By: Bartolo Lyons on 02-06-2025 Neutrophils (Bld) [#/Vol]N/[facility] HospitalNeutrophils/100 WBC Auto (Bld)Ordered By: Bartolo Lyons on 00-16-2014Ssvuhnngzno/100 WBC (Bld)N/A [facility] HospitalNitrite Test strip Ql (U)Ordered By: Bartolo Lyons on 60-72-6975Vzsgqam Ql (U)NegativeNegativeChillicothe HospitalNo Panel InformationOrdered By: Bartolo Lyons on 96-30-8142Nwsaqbazt GFR (CKD-EPI)> 60.0 mL/MinChillicothe HospitalPharmacy Creatinine Clearance (Yqsz953.95Ch[facility] HospitalNucleated erythrocytes [Presence] in Blood by Automated countOrdered By: Bartolo Lyons on 02-06-2025 Nucleated RBC Auto Ql (Bld)NSelect Medical Specialty Hospital - ColumbusOvalocytes [Presence] in Blood by Light microscopyOrdered By: Bartolo Lyons on 02-06-2025 Ovalocytes LM Ql (Bld)[facility]-Patterson Medical CenterPlatelet adequacy [Presence] in Blood by Light microscopyOrdered By: Bartolo Lyons on 02-06-2025 Platelets LM Ql (Bld)NormalNormalChillicothe HospitalPlatelet mean volume [Entitic volume] in Blood by Automated countOrdered By: Bartolo Lyons on 10-41-7715Hkcwgugw mean volume (Bld) [Entitic vol]8.3 fL6.3-10.7FWood County HospitalComment on above:Performed By: #### CMP, CK, DIFF CBC, HS TROP #### [facility] [address] [place] [address] USAPlatelet morphology finding [Identifier] in BloodOrdered By: Bartolo Lyons on 98-58-9404Lqlhbtfe morphology finding Nom (Bld)[facility], BeachwoodPlatelets Large [Presence] in Blood by Light microscopy Ordered By: Bartolo Lyons on 70-59-0673Fuszjhxmo Large LM Ql (Bld)[facility]-Patterson Medical CenterPlatelets [#/volume] in Blood by Automated countOrdered By: Bartolo Lyons on 30-01-3345Kyushirkx (Bld) [#/Vol]180 10*3/qF861-599LneddulyrChillicothe HospitalComment on above:Performed By: #### CMP, CK, DIFF CBC, HS TROP #### [facility] [address] [place] [address] USAPoikilocytosis [Presence] in Blood by Light microscopy Ordered By: Bartolo Lyons on 00-15-9996Brmhuatugvpbon LM Ql (Bld)SlightChillicothe HospitalPotassium [Moles/volume] in Serum or PlasmaOrdered By: Bartolo Lyons on 76-28-6111Vabklpdaq [Moles/Vol]3.7 mmol/L3.5-5.1FWood County HospitalComment on above:Performed By: #### CMP, CK, DIFF CBC, HS TROP #### [facility] [address] [place] [address] USAProtein Test strip (U) [Mass/Vol]Ordered By: Bartolo Lyons on 25-40-9534Ltrxwth (U) [Mass/Vol]NegativeNegativeChillicothe HospitalProtein [Mass/volume] in Serum or PlasmaOrdered By: Bartolo Lyons on 25-92-0045Gqcfhkx [Mass/Vol]7.4 g/dL6.4-8.9[facility] Comment on above:Performed By: #### CMP, CK, DIFF CBC, HS TROP #### [facility] [address] [place] [address] USASegmented neutrophils/100 leukocytes in Blood by Manual countOrdered By: Bartolo Lyons on 03-66-0853Mwhlroonm neutrophils/100 WBC (Bld)83 %Kcbc52-59EndjvfkxjChillicothe HospitalComment on above:Performed By: #### CMP, CK, DIFF CBC, HS TROP #### [facility] [address] [place] [address] USASerum globulin measurement by calculation (mass/volume) Ordered By: Bartolo Lyons on 38-95-1144Hbtgzetq (S) [Mass/Vol]3.2 g/dLChillicothe HospitalComment on above:Performed By: #### CMP, CK, DIFF CBC, HS TROP #### [place] [address] USASerum or plasma albumin/globulin mass ratioOrdered By: Bartolo Lyons on 80-59-4834Tajovxe/Globulin [Mass ratio]1.3 {ratio}[facility] HospitalComment on above:Performed By: #### CMP, CK, DIFF CBC, HS TROP #### [place] [address] USASerum or plasma anion gap determinationOrdered By: Bartolo Lyons on 30-47-1839Xrijs gap [Moles/Vol]12.0 mmol/L6.0-15.0Ch[facility] HospitalComment on above:Performed By: #### CMP, CK, DIFF CBC, HS TROP #### [place] [address] USASodium [Moles/volume] in Serum or PlasmaOrdered By: Bartolo Lyons on 24-11-3063Ovzfsx [Moles/Vol]137 mmol/W915-306PcckrdzwhChillicothe HospitalComment on above:Performed By: #### CMP, CK, DIFF CBC, HS TROP #### [place] [address] USASpecific gravity Test strip (U) [Rel density]Ordered By: Bartolo Lyons on 77-62-0977Mrrdopeh gravity (U) [Rel density]1.0171.001-1.030 [facility] - Columbustomatocytes [Presence] in Blood by Light microscopyOrdered By: Bartolo Lyons on 47-66-8017Xnixkpuzmzds LM Ql (Bld)Slight [facility] HospitalTroponin I High Sensitivityon 02-06-2025 Troponin I High Trxgyjgvqqa1Hommyj7-97Jhu Firsthealth Physician GroupComment on above:Result Comment: The Troponin units of report have been changed to meet the Chest Pain Accreditation requirement, element EC5.M1l2. Troponin units are changed from pg/ml to ng/L. Also, the decimal is removed and results are in whole numbers. PERFORMED BY: [place] [address] PATHOLOGIST CONFERENCE MANAGER ABIODUN YEPEZ M.D.Performed By: #### CMP, CK, DIFF CBC, HS TROP #### [facility] [address] [place] [id number] USATroponin I.cardiac [Mass/volume] in Serum or Plasma by Detection limit <= 0.01 ng/mLOrdered By: Bartolo Lyons on 22-34-7861Bbmieusf I.cardiac DL <= 0.01 ng/mL [Mass/Vol]5 ng/L0-[facility] Comment on above:The Troponin units of report have been changed to meet the Chest Pain Accreditation requirement, element EC5.M1l2. Troponin units are changed from pg/ml to ng/L. Also, the decimal is removed and results are in whole numbers.Urea nitrogen [Mass/volume] in Serum or PlasmaOrdered By: Bartolo Lyons on [id number] nitrogen [Mass/Vol]11 mg/dL01-17[facility] HospitalComment on above:Performed By: #### CMP, CK, DIFF CBC, HS TROP #### [place] [id number] USAUrinalysison [id number],UrineNegativeNormal NegativeThe Firsthealth Physician GroupComment on above:Order Comment: Name Collection Type:: Clean-Voided MidstreamPerformed By: #### UA #### [place] [address] USAGlucose Ql (U)NormalNormalNormalThe Firsthealth Physician GroupComment on above:Order Comment: Name Collection Type:: Clean-Voided MidstreamPerformed By: #### UA #### [place] [id number] USANitrite,UrineNegativeNormalNegativeThe Firsthealth Physician GroupComment on above:Order Comment: Name Collection Type:: Clean-Voided MidstreamPerformed By: #### UA #### [place] [id number] USAOccult Blood,UrineNegativeNormalNegativeThe Firsthealth Physician GroupComment on above:Order Comment: Name Collection Type:: Clean- Voided MidstreamResult Comment: PERFORMED BY: [place] [address] PATHOLOGIST CONFERENCE MANAGER ABIODUN YEPEZ M.D.Performed By: #### UA #### [place] [address] USAProtein,UrineNegativeNormalNegativeThe Firsthealth Physician GroupComment on above:Order Comment: Name Collection Type:: Clean-Voided MidstreamPerformed By: #### UA #### [place] [address] USASpecificy [place],Urine1.059Evgpwe2.001-1.030The Firsthealth Physician GroupComment on above:Order Comment: Name Collection Type:: Clean- Voided MidstreamPerformed By: #### UA #### [place] [address] USAUrobilinogen,UrineNormalNormalNormalThe Firsthealth Physician GroupComment on above:Order Comment: Name Collection Type:: Clean- Voided MidstreamPerformed By: #### UA #### [place] [address] USAUrobilinogen Test strip (U) [Mass/Vol]Ordered By: Bartolo Lyons on 24-70-2709Pwiwgbiyzzrg (U) [Mass/Vol]Normal mg/dLNormTriHealth Good Samaritan HospitalX-ray reportOrdered By: Allen Rico on 02-06-2025 [facility] Main [place] [address] [place] [address] XRay Report Signed Patient: Nati Santos MR#: [id number] : 1985 Acct:[id number] Age/Sex: 39 / F ADM Date: 5 [...] Jr, DO 02/06/251610 Signed By: 02/06/25 1612 [facility] HospitalXR chest 2V*on 74-07-8297BS chest 2V*[facility] Main [place] [address] [place] [address] XRay Report Signed Patient: Nati Santos MR#: [id number] : 1985 Acct:[id number] Age/Sex: 39 / F ADM Date: 02/06/25 [...] Rico Jr, DO 02/06/251610 Signed By: 02/06/25 [facility] Physician GrouppH of Urine by Test stripOrdered By: Bartolo Lyons on 53-75-8383dQ (U)6.0 [pH]5.0-9.0[facility] HospitalComment on above:Order Comment: Name Collection Type:: Clean-Voided MidstreamPerformed By: #### UA #### [place] [address] USAAuditory function testson 78-45-4461Diwqz Ear: Mild conductive hearing loss at 4K Hz. Mild hearing loss at 8K Hz Difficult to place bone in appropriate position because of head shape. Air-bone gap in right ear at 4K Hz may be secondary to poor placement of BC oscillator Left Ear: Mild sensorineural hearing loss at 6K Hz [facility] HealthcareBasophils Auto (Bld) [#/Vol]on 05-46-8385Fbotzqosr (Bld) [#/Vol]0.0 10 3/uL0.0-0.1FWood County HospitalBasophils/100 WBC Auto (Bld)on 45-15-1258Ojixetkti/100 WBC (Bld)0.4 %0.2-2.0[facility] HospitalEosinophils/100 WBC Auto (Bld)on 14-78-1179Gjmpxzuoiml/100 WBC (Bld)1.3 %0.9-7.0[facility] HospitalErythrocyte distribution width Auto (RBC) [Ratio]on 38-76-8718Vdbtuhcacpz distribution width (RBC) [Ratio]15.9 %High11.0-15.0[facility] HospitalGlucose mean value [Mass/volume] in Blood Estimated from glycated hemoglobinon 70-48-1045Olstvun glucose Estimated from glycated hemoglobin (Bld) [Mass/Vol]134 mg/dLChillicothe HospitalHematocrit Auto (Bld) [Volume fraction]on 42-89-6282Fdipvefsej (Bld) [Volume fraction]33.7 %Low36.0-48.0[facility] Hemoglobin [Mass/volume] in Bloodon 51-18-1765Dwpfwlbesj (Bld) [Mass/Vol]10.1 g/dLLow12.0-16.0[facility] HospitalLaboratory - Chemistry and Chemistry - challengeon 54-68-2064Apmnknbm [Mass/Vol]12.0 ng/mL8.0-252.0 [facility] HospitalLaboratory - Hematology and Cell countson 90-33-0869OoE0x (Bld) [Mass fraction]6.3 %High4.5-6.2FWood County HospitalComment on above:ADA RECOMMENDED LIMIT 4.0 - 6.0ADA THERAPEUTIC TARGET < 7.0ACTION SUGGESTED> 7.0Immature granulocytes/100 WBC (Bld)0.5 %0.0-0.5FWood County HospitalLeukocytes [#/volume] corrected for nucleated erythrocytes in Blood by Automated counon 95-53-4624CED corrected for nucl RBC Auto (Bld) [#/Vol]7.8 10 3/uL4.0-11.0[facility] Lymphocytes Auto (Bld) [#/Vol]on 60-76-6258Cakspunizju (Bld) [#/Vol]1.3 10 3/uL 1.2-3.8[facility] HospitalLymphocytes/100 WBC Auto (Bld)on 58-50-8050Pxxtxjtycxb/100 WBC (Bld)16.7 %Low20.5-60.0[facility] CampusH Auto (RBC) [Entitic mass]on 86-00-2264POS (RBC) [Entitic mass]23.0 pg Low26.7-34.0[facility] HospitalMCHC Auto (RBC) [Mass/Vol]on 38-04-6009DRXO (RBC) [Mass/Vol]30.0 g/dL29.9-35.2FWood County HospitalMCV Auto (RBC) [Entitic vol]on 30-45-4971ZXV (RBC) [Entitic vol]76.8 fLLow 81.0-99.0[facility] HospitalMonocytes Auto (Bld) [#/Vol]on 80-08-5258Oekacngtk (Bld) [#/Vol]0.6 10 3/uL0.3-0.8[facility] HospitalMonocytes/100 WBC Auto (Bld)on 01-01-1767Mjhvwqiiq/100 WBC (Bld)8.0 % 1.7-12.0[facility] HospitalNeutrophils Auto (Bld) [#/Vol]on 74-05-3096Wulawtmnylq (Bld) [#/Vol]5.7 10 3/uL1.4-6.5FWood County HospitalNeutrophils/100 WBC Auto (Bld)on 36-32-8467Wrkbgswgrbv/100 WBC (Bld)73.1 % 43.0-75.0[facility] HospitalNo Panel Informationon 11-02-2023 Eosinophils # (Auto)0.1 10 3/uL0.0-0.7FWood County HospitalImmature Granulocyte # (Auto)0.04 10 3/uLHigh0.00-0.03[facility] Platelet mean volume Auto (Bld) [Entitic vol]on 07-30-2696Qgdizpug mean volume (Bld) [Entitic vol]9.5 fL9.5-13.5FWood County HospitalPlatelets Auto (Bld) [#/Vol]on 51-70-9024Omittybmq (Bld) [#/Vol]197 10 3/xU478-071BlfpjpyygChillicothe HospitalRBC Auto (Bld) [#/Vol]on 51-06-6542NQQ (Bld) [#/Vol]4.39 10 6/uL4.20-5.40[facility] HospitalCOVID CepheidOrdered By: Terrence Spangler on 27-17-8736IUEA-CoV-2 (COVID-19) Ab IA QlNegativeNegative [facility] HospitalComment on above:This is a duplicate Cepheid Xpert Xpress CoV-2/Flu/RSV Plus RNA by RT-PCR result to be used for statistical tracking purpose only.SARS-CoV-2 (COVID-19) RNA SIMÓN+probe Ql (Unsp spec) [facility]ARS[facility] ([facility]OVID-19) RNA SIMÓN+probe Ql (Unsp spec)[facility]ARS-CoV-[facility] (COVID-19) RNA SIMÓN+probe Ql (Resp)on 61-55-2822LVSW-CoV-2 (COVID-19) RNA SIMÓN+probe Ql (Unsp spec)Positive [employer] Other [id number]-55 Positive/NegativeOrdered By: Gris Phillip on 22-54-2871TZPJ-CoV-2 (COVID-19) N gene SIMÓN+probe Ql (Resp)NegativeNegative [facility] HospitalComment on above:Testing for SARS-CoV-2 by RT-PCR This test was developed and its performance characteristics determined by [employer] (BD) and validated at the [facility]. This test has not been FDA [...] and its performance characteristics determined by [employer] (BD) and validated at the [facility]. This test has not been FDA [...] 02-07-2022 SARS-CoV-2 (COVID-19) RNA SIMÓN+probe Ql (Unsp spec)NegativeNowashington university medical center [employer] Other Albumin [Mass/volume] in Serum or PlasmaOrdered By: Kate Perezvertis/Preceptor on 83-52-0736Jhhyktw [Mass/Vol]3.5 g/dL3.2-5.5FWood County HospitalBasophils Auto (Bld) [#/Vol]Ordered By: Kate Ketvertis/Preceptor on 72-46-2863Zhvyhcxas (Bld) [#/Vol]0.0 10*3/uL0.0-0.2 [facility] HospitalBasophils/100 WBC Auto (Bld)Ordered By: Kate Ketvertis/Preceptor on 01-62-7246Yxycgrgki/100 WBC (Bld)0.6 %.[facility] HospitalBlood hemoglobin measurement (mass/volume)Ordered By: Kate Perezvertis/Preceptor on 20-12-9818Wacbygknjt (Bld) [Mass/Vol]12.0 g/dL11.8-15.4 [facility] HospitalBlood leukocytes automated count (number/volume)Ordered By: Kate Perezvertis/Preceptor on 12-67-6525ZTV (Bld) [#/Vol]7.9 10*3/uL4.5-11.0[facility] HospitalC reactive protein [Mass/volume] in Serum or PlasmaOrdered By: Kate Perezvertis/Preceptor on 96-47-4150LGO [Mass/Vol]3.4 mg/dL0.0-1.0[facility] HospitalDirect bilirubin measurementOrdered By: Kate Perezvertis/Preceptor on 01-31-2022 Bilirubin.direct [Mass/Vol]mg/dL0.0-0.4FWood County Hospital Eosinophils Auto (Bld) [#/Vol]Ordered By: Kate Ketvertis/Preceptor on 01-31-2022 Eosinophils (Bld) [#/Vol]0.1 10*3/uL0.0-0.45[facility] Eosinophils/100 WBC Auto (Bld)Ordered By: Kate Ketvertis/Preceptor on 01-31-2022 Eosinophils/100 WBC (Bld)1.1 %.[facility] HospitalErythrocyte distribution width Auto (RBC) [Ratio]Ordered By: Kate Groves/Preceptor on 57-08-9000Zgnkeatrmoe distribution width (RBC) [Ratio]15.8 %11.9-15.3FWood County HospitalGlobulin Calc (S) [Mass/Vol]Ordered By: Kate Perezvertis/Preceptor on 73-26-1429Nxxmijok (S) [Mass/Vol]3.1 g/dLChillicothe HospitalHematocrit Auto (Bld) [Volume fraction]Ordered By: Kate Perezvertis/Preceptor on 06-99-5835Fmwodyqyed (Bld) [Volume fraction]37.0 % 34.0-46.4FWood County HospitalLaboratory - Hematology and Cell countsOrdered By: Kate Groves/Preceptor on 07-35-4715Hitpuxogp RBC/100 WBC (Bld) [Ratio]0.1 %0-0.5FWood County HospitalLymphocytes Auto (Bld) [#/Vol]Ordered By: Kate Perezvertis/Preceptor on 21-08-6349Jbcphgatyhd (Bld) [#/Vol]1.3 10*3/uL1.00-4.8[facility] HospitalLymphocytes/100 WBC Auto (Bld)Ordered By: Kate Perezvertis/Preceptor on 01-75-4712Ysmtdnnegzg/100 WBC (Bld)16.5 %.[facility] HospitalMCH Auto (RBC) [Entitic mass] Ordered By: Kate Perezvertis/Preceptor on 21-95-8502VWD (RBC) [Entitic mass]25.4 pg24.7-34.3FWood County HospitalMCHC Auto (RBC) [Mass/Vol]Ordered By: Kate Ketvertis/Preceptor on 43-38-5980VTSF (RBC) [Mass/Vol]32.4 g/dL 32.0-35.0[facility] HospitalMCV Auto (RBC) [Entitic vol]Ordered By: Kate Ketvertis/Preceptor on 44-59-9117TDA (RBC) [Entitic vol]78.5 iS99-169 [facility] HospitalMonocytes Auto (Bld) [#/Vol]Ordered By: Kate Groves/Preceptor on 64-16-0011Gpfzppwqa (Bld) [#/Vol]0.5 10*3/uL0.0-0.8 [facility] HospitalMonocytes/100 WBC Auto (Bld)Ordered By: Kate Perezvertis/Preceptor on 48-88-5247Apigldwae/100 WBC (Bld)6.9 %.[facility] HospitalNeutrophils Auto (Bld) [#/Vol]Ordered By: Kate Perezvertis/Preceptor on 25-66-8489Bncfroakjnk (Bld) [#/Vol]5.9 10*3/uL1.8-7.7 [facility] HospitalNeutrophils/100 WBC Auto (Bld)Ordered By: Kate Perezvertis/Preceptor on 05-42-8896Ioukhvyallx/100 WBC (Bld)74.9 %.[facility] HospitalPlatelet mean volume Auto (Bld) [Entitic vol]Ordered By: Kate Groves/Preceptor on 80-34-9863Ruqwwuzc mean volume (Bld) [Entitic vol] 8.0 fL6.3-10.7FWood County HospitalPlatelets Auto (Bld) [#/Vol] Ordered By: Kate Salehis/Preceptor on 74-52-7548Swednbtmq (Bld) [#/Vol]233 10*3/bL653-485IkhgfnbgpChillicothe HospitalProtein [Mass/volume] in Serum or PlasmaOrdered By: Kate Perezvertis/Preceptor on 63-11-4027Nikheaf [Mass/Vol]6.6 g/dL6.1-7.9[facility] HospitalRBC Auto (Bld) [#/Vol]Ordered By: Kate Perezvertis/Preceptor on 75-50-0816EXR (Bld) [#/Vol]4.71 10*6/uL3.60-5.00 [facility] HospitalRandom cortisol measurementOrdered By: Kate Ketvertis/Preceptor on 97-32-4070Easegmmy [Mass/Vol]8.1 ug/dLChillicothe HospitalComment on above:Reference range: AM 6 - 24 ug/dl PM <10 ug/dlReference range: AM 6 - 24 ug/dl PM <10 ug/dlSerum or plasma alanine aminotransferase measurement without P-5'-P (enzymatic activiOrdered By: Kate Groves/Preceptor on 26-72-9611YDT No additional P-5'-P [Catalytic activity/Vol]39 U/L01-72QzkcpvnylSelect Medical Specialty Hospital - Columbuserum or plasma albumin/globulin mass ratioOrdered By: Kate Groves/Preceptor on 01-31-2022 Albumin/Globulin [Mass ratio]1.1 {ratio}[facility] Columbuserum or plasma alkaline phosphatase measurement (enzymatic activity/volume)Ordered By: Kate Salehis/Preceptor on 01-05-5539DVR [Catalytic activity/Vol]112 U/L 32-92[facility] - Columbuserum or plasma aspartate aminotransferase measurement (enzymatic activity/volume)Ordered By: Kate Salehis/Preceptor on 12-87-4759VMY [Catalytic activity/Vol]33 U/E90-04PyrdssuhhSelect Medical Specialty Hospital - Columbuserum or plasma follitropin measurement (units/volume)Ordered By: Kate Groves/Preceptor on 69-20-0722Xoxeoyfocow Qn4.8 m[IU]/mLChillicothe HospitalComment on above:FEMALE NORMALS (PREMENOPAUSE) MID-FOLLICULAR PHASE: 3.9-8.8 mIU/mL MID-CYCLE PEAK: 4.5-22.5 mIU/mL MID-LUTEAL PHASE: 1.8-5.1 mIU/mL FEMALE NORMALS (POSTMENOPAUSE): 16.7-113.6 mIU/mL MALE NORMALS: 1.3-19.3 mIU/mLFEMALE NORMALS (PREMENOPAUSE) MID-FOLLICULAR PHASE: 3.9-8.8 mIU/mL MID-CYCLE PEAK: 4.5-22.5 mIU/mL MID-LUTEAL PHASE: 1.8-5.1 mIU/mLFEMALE NORMALS (POSTMENOPAUSE): 16.7-113.6 mIU/mLMALE NORMALS: 1.3-19.3 mIU/mLSerum or plasma free cefuroxime measurement (mass/volume)Ordered By: Kate Groves/Preceptor on 92-53-5450Utgbbxihcp free [Mass/Vol]NegativeNegative [facility] HospitalComment on above:Performed at: [facility] [id number] Medical Editor: Eddie You PhD, Phone: [phone] at: [facility] [id number] Director: Eddie You PhD, Phone: [phone] or plasma lutropin measurement (units/volume)Ordered By: Kate Groves/Preceptor on 33-91-5144Pbxpvrea Qn3.2 m[IU]/mL.[facility] HospitalComment on above:Adult Female: Follicular phase 2.4 - 12.6 Ovulation phase 14.0 - 95.6 Luteal phase 1.0 - 11.4 Postmenopausal 7.7 - 58.5 Performed at: [facility] [id number] Medical Editor: Eddie You PhD, Phone: [phone] Female: Follicular phase 2.4 - 12.6 Ovulation phase 14.0 - 95.6 Luteal phase 1.0 - 11.4 Postme nopausal 7.7 - 58.5Performed at: [facility] [id number] Director: Eddie You PhD, Phone: [phone] or plasma non-glucuronidated bilirubin measurement (mass/volume)Ordered By: Kate Groves/Preceptor on 27-44-2237Uxurrymbj.indirect [Mass/Vol][facility] HospitalComment on above:Test not performedSerum or plasma total bilirubin measurement (mass/volume)Ordered By: Kate Groves/Preceptor on 17-75-4592Awwiuwdrq [Mass/Vol]0.6 mg/dL0.3-1.2FWood County Hospital TSH DL <= 0.005 mIU/L QnOrdered By: Kate Salehis/Preceptor on 94-61-7225QVG Qn 2.78 m[IU]/L0.45-5.33[facility] HospitalThyroxine (T4) free [Mass/volume] in Serum or PlasmaOrdered By: Kate Salehis/Preceptor on 83-68-0079Quds T4 [Mass/Vol]0.80 ng/dL0.61-1.12[facility] Body fluid albumin measurement (mass/volume)Ordered By: Leah Le on 09-80-8865Njwwrqv (Body fld) [Mass/Vol]3.8 g/dL3.2-5.5FWood County HospitalCholesterol [Mass/volume] in Serum or PlasmaOrdered By: Leah Le on 83-03-0729Sdignkhtjid [Mass/Vol]194 mg/rQ041-884ItjvixaapChillicothe HospitalComment on above:Chol less than 200 mg/dl low risk Chol 201-239 mg/dl borderline risk Chol 240 mg/dl and greater high riskChol less than 200 mg/dl low riskChol 201- 239 mg/dl borderline riskChol 240 mg/dl and greater high riskCholesterol in LDL Calc [Mass/Vol]Ordered By: Leah Le on 32-64-1112Xwrohuhtccz in LDL [Mass/Vol]103 mg/dL0-100[facility] HospitalComment on above:LDL ATP III CLASSIFICATION LDL less than 100 mg/dL Optimal LDL 100-129 mg/dL Near or above optimal LDL 130-159 mg/dL Borderline high LDL 160-189 mg/dL High LDL greater than 189 mg/dL Very highLDL ATP III CLASSIFICATIONLDL less than 100 mg/dL OptimalLDL 100-129 mg/dL Near or above cthpkosOOF652-332 mg/dL Borderline highLDL 160-189 mg/dL HighLDL greater than 189 mg/dL Very highCholesterol in VLDL Calc [Mass/Vol]Ordered By: Leah Le on 58-90-2327Ozuyirnnegx in VLDL [Mass/Vol]55 mg/dLChillicothe HospitalCreatinine and Glomerular filtration rate.predicted panel (S/P/Bld)Ordered By: Leah Le on 01-10-2022 Creatinine [Mass/Vol]0.71 mg/dL0.44-1.03[facility] Estimated glomerular filtration rate (GFR) non- AmericanOrdered By: Leah Le on 97-10-4572LQC/1.73 sq M.predicted among non-blacks MDRD (S/P/Bld) [Vol rate/Area]> 60 mL/MinChillicothe HospitalGlobulin Calc (S) [Mass/Vol]Ordered By: Leah Le on 21-38-8888Lodtlywo (S) [Mass/Vol]3.3 g/dLChillicothe HospitalGlucose mean value [Mass/volume] in Blood Estimated from glycated hemoglobinOrdered By: Leah Le on 23-32-0619Ynhmpug glucose Estimated from glycated hemoglobin (Bld) [Mass/Vol]160 mg/dLChillicothe HospitalLaboratory - Chemistry and Chemistry - challengeOrdered By: Leah Le on 16-73-7037Fcmtype [Mass/Vol] 130 mg/tY73-793MenmizlkdChillicothe HospitalComment on above:ADA recommended reference rangeLaboratory - Hematology and Cell countsOrdered By: Leah Le on 03-36-3969AaT8r (Bld) [Mass fraction]7.2 %4.3-5.6FWood County HospitalComment on above:Increased risk for diabetes: 5.7 - 6.4 diabetes: >6.4 glycemic control for adults with diabetes: <7.0Increased risk for diabetes: 5.7 - 6.4diabetes: >6.4glycemic control for adults with diabetes: <7.0No Panel InformationOrdered By: Leah Le on 77-05-0185Knsvbcxsf GFR ()> 60 mL/MinChillicothe HospitalComment on above:GFR estimated reference range: According to KDOQI guidelines, <60 ml/min/1.73m2 is sufficient todiagnose a patient with chronic kidney disease.Pharmacy Creatinine Clearance (ChemN/AFWood County HospitalTriglycerides Oulewt342 mg/dL 35-149[facility] HospitalComment on above:TRIG ATP III CLASSIFICATION TRIG [...] Serum or PlasmaOrdered By: Leah Le on 06-38-4164Oltfhle [Mass/Vol]7.1 g/dL6.1-7.9[facility] Serum or plasma alanine aminotransferase measurement without P-5'-P (enzymatic activiOrdered By: Leah Le on 61-06-8458GWT No additional P-5'-P [Catalytic activity/Vol]48 U/Y78-00PktavhqssSelect Medical Specialty Hospital - Columbuserum or plasma albumin/globulin mass ratioOrdered By: Leah Le on 01-10-2022 Albumin/Globulin [Mass ratio]1.2 {ratio}[facility] Columbuserum or plasma alkaline phosphatase measurement (enzymatic activity/volume)Ordered By: Leah Le on 92-35-0942AEK [Catalytic activity/Vol]115 U/Y87-26DrssdtotvSelect Medical Specialty Hospital - Columbuserum or plasma aspartate aminotransferase measurement (enzymatic activity/volume)Ordered By: Leah Le on 65-84-8598LJM [Catalytic activity/Vol]38 U/C10-70VctlmegebSelect Medical Specialty Hospital - Columbuserum or plasma calcium measurement (mass/volume)Ordered By: Leah Le on 17-10-5930Inlltem [Mass/Vol]9.6 mg/dL8.2-10.2FKing's Daughters Medical Center Ohioerum or plasma chloride measurement (moles/volume)Ordered By: Leah Le on 01-10-2022 Chloride [Moles/Vol]96 mmol/J10-042XedbivgvaSelect Medical Specialty Hospital - Columbuserum or plasma high density lipoprotein (HDL) cholesterol measurementOrdered By: Leah Le on 15-39-3558Mnnaizorjhn in HDL [Mass/Vol]36 mg/pV55-39HfedgnbvsChillicothe HospitalComment on above:HDL CHOL ATP-III CLASSIFICATION Cardiovascular Risk HDL > or equal to 60 mg/dL LOW HDL < 40 mg/dL HIGHHDL CHOL ATP-III CLASSIFICATION Cardiovascular RiskHDL > or equal to 60 mg/dL LOWHDL < 40 mg/dL HIGHSerum or plasma potassium measurement (moles/volume)Ordered By: Leah Le on 34-04-7077Uajeklcjl [Moles/Vol]4.4 mmol/L3.5-5.1FKing's Daughters Medical Center Ohioerum or plasma sodium measurement (moles/volume)Ordered By: Leah Le on 32-54-8996Ilsehb [Moles/Vol]135 mmol/K397-187BmvtfkzyvSelect Medical Specialty Hospital - Columbuserum or plasma total bilirubin measurement (mass/volume)Ordered By: Leah Le on 61-31-0308Kwaiwadkr [Mass/Vol]0.4 mg/dL0.3-1.2FKing's Daughters Medical Center Ohioerum or plasma total carbon dioxide measurement (moles/volume)Ordered By: Leah Le on 38-45-2009MY8 [Moles/Vol]27.0 mmol/L22.0-30.0[facility] Serum or plasma total cholesterol/high density lipoprotein (HDL) cholesterol mass ratOrdered By: Leah Le on 53-59-8392Twkperhkgls.total/Cholesterol in HDL [Mass ratio]5.4 {ratio}<5.0[facility] Columbuserum or plasma urea nitrogen measurement (mass/volume)Ordered By: Leah Le on 01-10-2022 Urea nitrogen [Mass/Vol]9 mg/dL9-23[facility] HospitalCBC AUTO DIFFon 28-98-9936TPSC #0.0 103/ulNormal0.0-0.1The [facility] Hospital ToledoComment on above:Performed By: #### CBC #### [facility] [address] [address] [address] Nehemiah Powerssophils/100 WBC (Bld)0.4 %Normal0.2-2.0[facility] Comment on above:Performed By: #### CBC #### [facility] [address] [address] [address] Nehemiah Saenz #0.1 103/ulNormal0.0-0.7The [facility] Hospital ToledoComment on above: Performed By: #### CBC #### [facility] [address] [place] [address] Dr. Nehemiah Adlerosinophils/100 WBC (Bld)1.3 %Normal0.9-7.0[facility] Comment on above:Performed By: #### CBC #### [facility] [address] [place] [address] Dr. Nehemiah Adlerrythrocyte distribution width (RBC) [Ratio]14.9 %Beomur18.0-15.0 The [facility] Hospital ToledoComment on above:Performed By: #### CBC #### [facility] [address] [place] [address] Dr. Nehemiah CastilloHematocrit (Bld) [Volume fraction]36.9 %Zmdfvq46.0-48.0The [facility] ToledoComment on above:Performed By: #### CBC #### [facility] [address] [place] [address] Dr. Nehemiah CastilloHemoglobin (Bld) [Mass/Vol]11.5 g/dLCritically low12.0-16.0The [facility] ToledoComment on above:Performed By: #### CBC #### [facility] [address] [place] [address] Dr. Nehemiah Villagomez #0.07 10e3/ulCritically high0.00-0.03[facility] Comment on above:Performed By: #### CBC #### [facility] [address] [place] [address] Dr. Nehemiah Villagomez %0.7 %Critically high0.0-0.5The [facility] ToledoComment on above:Performed By: #### CBC #### [facility] [address] [place] [address] Dr. Nehemiah Agarwal #1.6 103/ulNormal1.2-3.8The [facility] ToledoComment on above:Performed By: #### CBC #### [facility] [address] [place] [address] Dr. Nehemiah Tripathimphocytes/100 WBC (Bld)16.0 %Critically low20.5-60.0The [facility] ToledoComment on above:Performed By: #### CBC #### [facility] [address] [place] [address] Dr. Nehemiah RiveroUAL DIFF REQNONormalThe [facility] Hospital ToledoComment on above: Performed By: #### CBC #### [facility] [address] [place] [address] Dr. Nehemiah Ogden (RBC) [Entitic mass]26.2 pgCritically low26.7-34.0The [facility] ToledoComment on above:Performed By: #### CBC #### [facility] [address] [place] [address] Dr. Nehemiah Ogden (RBC) [Mass/Vol]31.2 g/qRXiuypd04.9-35.2The [facility] ToledoComment on above:Performed By: #### CBC #### [facility] [address] [place] [address] Dr. Nehemiah Ogden (RBC) [Entitic vol]84.1 sALispgd05.0-99.0[facility] HospitalComment on above:Performed By: #### CBC #### [facility] [address] [place] [address] Dr. Nehemiah Alvarez #0.7 103/ulNormal0.3-0.8The [facility] ToledoComment on above:Performed By: #### CBC #### [facility] [address] [place] [address] Dr. Nehemiah Walkerocytes/100 WBC (Bld)6.7 %Normal1.7-12.0[facility] Comment on above:Performed By: #### CBC #### [facility] [address] [place] [address] Dr. Nehemiah Jordan #7.3 103/ulCritically high1.4-6.5[facility] Comment on above:Performed By: #### CBC #### [facility] [address] [address] [address] Nehemiah CastilloNeutrophils/100 WBC (Bld)74.9 %Ywjtqo15.0-75.0The [facility] ToledoComment on above:Performed By: #### CBC #### [facility] [address] [address] [address] Nehemiah CastilloPlatelet mean volume (Bld) [Entitic vol]9.7 fLNormal9.5-13.5The [facility] ToledoComment on above:Performed By: #### CBC #### [facility] [address] [address] [address] Nehemiah CastilloPLT225 103/[id number] [facility]edoComment on above: Performed By: #### CBC #### [facility] [address] [address] [address] Nehemiah CastilloRBC4.39 106/ulNormal4.20-5.40The [facility] [place]edoComment on above:Performed By: #### CBC #### [facility] [address] [address] [address] Nehemiah CastilloWBC9.8 103/ulNormal4.0-11.0[facility]edoComment on above: Performed By: #### CBC #### [facility] [address] [address] [address] Nehemiah CastilloGLYCOHEMOGLOBIN A1Con 09-36-9482MQZ RECOMMENDATIONADA THERAPEUTIC TARGET 6.0 - 7.0 ACTION SUGGESTED > 7.0NoNewark HospitalComment on above:Performed By: #### A1C #### [facility] [address] [address] [address] Nehemiah CastilloGlucose [Mass/Vol]148 mg/dLNoNewark HospitalComment on above:Performed By: #### A1C #### [facility] [address] [address] [address] Nehemiah CastilloHbA1c (Bld) [Mass fraction]6.8 %Critically high<=6.0The Dino HospitalComment on above:Performed By: #### A1C #### [facility] [address] [address] [address] Nehemiah SchumacherID PROFILEon 45-22-2010GKMQ-HDL RATIO NORMSChillicothe VA Medical CenterCommclaren caro region on above:Result Comment: 3.3 - 4.4 LOW RISK 4.4 - 7.1 AVERAGE RISK 7.1 - 11.0 MODERATE RISK >11.0 HIGH RISKPerformed By: #### CMP, LIPID #### [facility] [address] [address] [address] Nehemiah CastilloCholesterol [Mass/Vol]153 mg/dLNormal<=200[facility] Comment on above:Performed By: #### CMP, LIPID #### [facility] [address] [address] [address] Nehemiah CastilloCholesterol in HDL [Mass/Vol]32 mg/dLDayton Children's Hospital Comment on above:Performed By: #### CMP, LIPID #### [facility] [address] [address] [address] Nehemiah CastilloCholesterol in LDL [Mass/Vol]76.6 mg/dLDayton Children's HospitalComment on above:Performed By: #### CMP, LIPID #### [facility] [address] [address] [address] Nehemiah CastilloCholesteretelvina.total/Cholesterol in HDL [Mass ratio]4.8 {ratio} NormalDetwiler Memorial HospitalComment on above:Performed By: #### CMP, LIPID #### [facility] [address] [address] [address] Nehemiah CastilloHDL NORMAL> or = 60 mg/dl - LOW CARDIOVASCULAR RISK <40 mg/dl - HIGH CARDIOVASCULAR RISKDayton Children's HospitalComment on above:Performed By: #### CMP, LIPID #### [facility] [address] [address] [address] Nehemiah CastilloLDL CALC NORMALSEE Marietta Osteopathic ClinicComment on above:Result Comment: <100 mg/dl OPTIMAL 100 - 129 mg/dl NEAR OR ABOVE OPTIMAL 130 - 159 mg/dl BORDERLINE HIGH 160 - 189 mg/dl HIGH >190 mg/dl VERY HIGH Performed By: #### CMP, LIPID #### [facility] [address] [place] [address] Dr. Nehemiah CastilloTriglyceride [Mass/Vol]222 mg/dLCritically high<=150The [facility] Health Miamisburgment on above:Performed By: #### CMP, LIPID #### [facility] [address] [address] [address] Nehemiah CastilloVLDL CALC44.4 mg/dLNormalThe [facility] ToledoComment on above: Performed By: #### CMP, LIPID #### [facility] [address] [place] [address] Dr. Nehemiah Bryant 14(COMP METB)on 16-17-4951Czdlacs [Mass/Vol]3.1 g/dL Critically low3.5-5.0The [facility] ToledoComment on above:Performed By: #### CMP, LIPID #### [facility] [address] [place] [address] Dr. Nehemiah CastilloAlbumin/Globulin [Mass ratio]0.8 {ratio}NormalThe [facility] ToledoComment on above:Performed By: #### CMP, LIPID #### [facility] [address] [place] [address] Dr. Nehemiah Nunez [Catalytic activity/Vol]134 U/LCritically egju11-693Msg [facility]edoComment on above:Performed By: #### CMP, LIPID #### [facility] [address] [place] [address] Dr. Nehemiah Talavera [Catalytic activity/Vol]36 U/LNormal9-52The [facility] Comment on above:Performed By: #### CMP, LIPID #### [facility] [address] [place] [address] Dr. Nehemiah Davison gap [Moles/Vol]10.7 mmol/LNormalThe [facility] Comment on above:Performed By: #### CMP, LIPID #### [facility] [address] [place], [place] [address] Dr. Nehemiah CastilloAST [Catalytic activity/Vol]17 U/SVkmxku85-46Pqi [facility] ToledoComment on above:Performed By: #### CMP, LIPID #### [facility] [address] [place] [address] Dr. Nehemiah CastilloBilirubin [Mass/Vol]0.4 mg/dLNormal0.2-1.3The [facility] Comment on above:Performed By: #### CMP, LIPID #### [facility] [address] [place] [address] Dr. Nehemiah CastilloCalcium [Mass/Vol]9.1 mg/dLNormal8.4-10.2The [facility] Comment on above:Performed By: #### CMP, LIPID #### [facility] [address] [place] [address] Dr. Nehemiah CastilloChloride [Moles/Vol]101 mmol/EUadcqg10-902Bhv [facility] Comment on above:Performed By: #### CMP, LIPID #### [facility] [address] [place] [address] Dr. Nehemiah CastilloCO2 [Moles/Vol]30.0 mmol/EDstolb61.0-30.0The [facility] Comment on above:Performed By: #### CMP, LIPID #### [facility] [address] [place] [address] Dr. Nehemiah CastilloCreatinine [Mass/Vol]0.67 mg/dLNormal0.52-1.04The [facility] ToledoComment on above:Performed By: #### CMP, LIPID #### [facility] [address] [place] [address] Dr. Nehemiah AdlerGFR-AF MEXICAN>60Normal>=60The [facility] ToledoComment on above:Performed By: #### CMP, LIPID #### [facility] [address] [place] [address] Dr. Nehemiah AdlerGFR-NON AF MEXICAN>60Normal>=60The [facility] ToledoComment on above:Performed By: #### CMP, LIPID #### [facility] [address] [address] [address] Nehemiah CastilloGlobulin (S) [Mass/Vol]4.1 g/dLNormSelect Medical Specialty Hospital - Boardman, IncComment on above:Performed By: #### CMP, LIPID #### [facility] [address] [place] [address] Dr. Nehemiah CastilloGlucose [Mass/Vol]149 mg/dLCritically oarz14-871Lhq [facility]edoComment on above:Performed By: #### CMP, LIPID #### [facility] [address] [place] [address] Dr. Nehemiah CastilloPotassium [Moles/Vol]3.7 mmol/LNormal3.4-5.0The [facility] Comment on above:Performed By: #### CMP, LIPID #### [facility] [address] [place] [address] Dr. Nehemiah CastilloProtein [Mass/Vol]7.2 g/dLNormal6.1-8.2The [facility] Comment on above:Performed By: #### CMP, LIPID #### [facility] [address] [place] [address] Dr. Nehemiah CastilloSodium [Moles/Vol]138 mmol/RYzcfds715-240Pzm [facility] Comment on above:Performed By: #### CMP, LIPID #### [facility] [address] [place] [address] Dr. Nehemiah CastilloUrea nitrogen [Mass/Vol]12.0 mg/dLNormal7.0-17.0The [facility] ToledoComment on above:Performed By: #### CMP, LIPID #### [facility] [address] [place] [address] Dr. Nehemiah CastilloUrea nitrogen/Creatinine [Mass ratio]17.9 mg/mgNoNewark HospitalComment on above:Performed By: #### CMP, LIPID #### [facility] [address] [place] [address] Dr. Nehemiah CastilloCovid-19 PCR (CVDTB)on 14-58-7484PBOE-CoV-2 (COVID-19) RNA SIMÓN+probe Ql (Unsp spec)Not detectedNormalNOT DETECTEDThe [facility] Comment on above:Result Comment: This test is not yet approved or cleared by the [place] FDA. When there are no FDA-approved or cleared tests available, and other criteria are met, FDA can make tests available under an emergency access mechanism called an Emergency Use Authorization (EUA). The EUA for this test is supported by the Car Servicer of Health and Human Service's (HHS's) declaration [...] and symptoms consistent with SARS-CoV-2.Performed By: #### [facility] #### [facility] [address] [place] [address] Dr. Nehemiah Ng-19 PCR ([facility])on 98-96-2939FHYW-CoV-2 (COVID-19) RNA SIMÓN+probe Ql (Unsp spec)Not detectedNormalNOT DETECTEDThe [facility] Comment on above:Result Comment: This test is not yet approved or cleared by the [place] FDA. When there are no FDA-approved or cleared tests available, and other criteria are met, FDA can make tests available under an emergency access mechanism called an Emergency Use Authorization (EUA). The EUA for this test is supported by the Car Servicer of Health and Human Service's (HHS's) declaration [...] consistent with SARS-CoV-2.Performed By: #### CVDTBH #### [facility] [address] [address] [address] Nehemiah Fuller Recordson 35-61-9568Swlzeyj Records [id number]#1.00[facility] Outside [id number]#1.00OTSelect Medical [facility], BeachwoodPatient Handouton 36-13-6792Hjxysqx Handout [address] Hospital Extensions 3804 & 9497 March 24, 2021 Nati Santos with date of 1985 was in the emergency room through [facility] on March 22, 2021. She was diagnosed with flank strain. This office did not follow her for time off with this recent exacerbation of low back pain and has not authorized this time off. ER did recommend return to work on March 24, 2021. Trice Jernigan, [place] Family Nurse PractitionerOhio Valley HospitalConsent Formson 03-23-2021 Consent [id number]#1.00[facility] EastCoding Summaryon 24-35-0029Ezjwqm SummaryHTMLBase 64 XgepsybrKOx5cIp+PGhlYWQ+HX9LXFCsU46liDBvgD4PZ9gSYP9WPIDCPPSDZJ6UUA0tsOJ9WKgzV9Hg biAv [file] b2x (more content not included)...[facility] HospitalOutside Recordson 37-72-8379Onceris [id number]#1.00OTGTIFF [facility] HospitalOutside Recordson 34-61-4990Emlxqph Records [id number]#1.00OTOhio State East Hospital2019 Novel Coronavirus (CoVID-19), SIMÓN LCon 93-76-6135ZZQK-CoV-2 (COVID-19) RNA SIMÓN+probe Ql (Unsp spec)Not detectedInvalid Interpretation [facility] Comment on above:Order Comment: [id number] Comment: This nucleic acid amplification test was developed and its performance characteristics determined by [employer]. Nucleic acid amplification tests include RT- PCR [...] detected) result in this assay. Performed At: [address] [id number] Kenyatta Morgan PhD Ph:[phone] By: #### [id number] ####[facility] (DEFAULT)[address] [place] [address] 899[address]Bmgmatb Recordson 55-70-8489Eduhlnq [id number]#1.00OTGTIFF [facility] HospitalOutside Recordson 86-40-1099Diwtgcb Records [id number]#1.00OTGTBr[facility] Hospital Outside [id number]#1.00OTSelect [facility] Hospital, BeachwoodOutside Recordson 71-51-5373Hsjnyfz Records [id number]#1.00[facility] Outside [id number]#1.00[facility] Records [id number]#1.00[facility] Outside Recordson 76-71-3698Wjhegjo Records [id number]#1.00[facility] Outside Recordson 28-73-9885Wyfktjw Records [id number]#1.00[facility] Patient Handouton 52-93-9296Wzsndbe HandoutNephrology Peripheral Edema Peripheral edema is swelling [...] your health care provider. Medicines ? Take degz-ksq-xascmeh and prescription medicines only as told by [...] provider. Document Revised: 03/06/2019 Document Reviewed: 03/06/2019 [email or web address] Patient Education ? [address] HospitalOutside Recordson 91-14-8768Mvsdpgk Records [id number]#1.00OTGTElyria Memorial Hospital Coding Summaryon 11-94-4388Eaahuu SummaryHTMLBase 64 JwosvgnmIZz7kJb+PGhlYWQ+HN9ZUWWyR22rlUKsqU3UJ0uUZC2WTEIAPCKKZP0OUJ3lcUL8ZNriE2Dg biAv [file] b2x (more content not included)...NormalGreene Memorial Hospital Hospital.Auto Diff 1on 25-15-9802Gsrl Cavalier %6 %Normal1-12[facility] HospitalComment on above:Performed By: #### [id number], [id number], 23057736, [id number] ####[facility] (DEFAULT)[address] [place] [address] 82948Tqxc Abs#0.0 v42Tttavk9.0-0.2 [facility] HospitalComment on above:Performed By: #### [id number], [id number], 33683232, [id number] ####[facility] (DEFAULT)[address] [place] [address] 18747Sfarreolc/100 WBC (Bld)0.3 %Normal0.2-2.0[facility] Comment on above:Performed By: #### 8643017, [id number], 87616040, [id number] ####[facility] (DEFAULT)[address] [place] [address] 64818Pye Abs# 0.1 i60Rrmcjk9.0-0.4[facility] HospitalComment on above:Performed By: #### 5723524, [id number], 85282020, 8221017934 ####[facility] (DEFAULT)[address] [place] [address] 95669Tliepprcrft/100 WBC (Bld)1.1 %Normal0.9-4.0 [facility] HospitalComment on above:Performed By: #### 6463592, [id number], 95051205, [id number] ####[facility] (DEFAULT)[address] [place] [address] 87646Bkxum Abs#1.2 d52Adz7.3-2.9[facility] HospitalComment on above: Performed By: #### 7788503, [id number], 33659458, [id number] ####[facility] (DEFAULT)[address] [place] [address] 45513Nbdgrofnqlp/100 WBC (Bld)15 %Mlfttq24-01Bzzlxjts HospitalComment on above:Performed By: #### 7485393, [id number], 72938202, [id number] ####[facility] (DEFAULT)[address] [place] [address] 09695Xvjf Abs#0.5 g81Nbctxc5.0-0.8Magrcleveland clinic fairview hospital HospitalComment on above:Performed By: #### 4418188, [id number], 57446239, [id number] ####[facility] (DEFAULT)[address] [place] [address] 64185Yuvn Abs#6.1 b08Epabml4.5-9.2Magrcleveland clinic fairview hospital HospitalComment on above:Performed By: #### 7553190, [id number], 12335440, [id number] ####[facility] (DEFAULT)[address] [place] [address] 85960Bqxmwudhvoh/100 WBC (Bld)78 % Zoqpvn81-42Kjolhent HospitalComment on above:Performed By: #### 5698125, [id number], 10150340, [id number] ####[facility] (DEFAULT)[address] [place] [address] 09258BEP Standardon 21-12-2437oTJJ Non AA>60Invalid Interpretation CodeGreene Memorial Hospital HospitalComment on above:Performed By: #### 9359312, [id number], 57626170, [id number] ####[facility] (DEFAULT)[address] [place] [address] 54334xJRQ AA>60Invalid Interpretation CodeGreene Memorial Hospital HospitalComment on above:Result Comment: Chronic Kidney disease could be indicated at eGFRs of less than 60 ml/min/1.73m2. Kidney Failure is indicated at less than 15 ml/min/1.66r0Rjqexqcrk By: #### 4826392, [id number], 97526902, [id number] ####[facility] (DEFAULT)[address] [place] [address] 52258Blizo gap [Moles/Vol]14.0 mmol/LNormal5.0-19.0[facility] HospitalComment on above:Performed By: #### 1757205, [id number], 01568513, [id number] ####[facility] (DEFAULT)[address] [place] [address] 89474Fkkfixk [Mass/Vol]9.0 mg/dLNormal8.9-10.3Msouthern [facility]io [facility] HospitalComment on above:Performed By: #### 1692747, [id number], 27619238, [id number] ####[facility] (DEFAULT)[address] [place] [address] 24029Uhwcfgiq [Moles/Vol]99 mmol/FGsx961-803Mpbkiyag HospitalComment on above:Performed By: #### 2155339, 6709472627, 30139317, 7461355635 ####[facility] (DEFAULT)[address] [place] [address] 81264AI7 [Moles/Vol]28 mmol/LAirulk26-83Efurdotu HospitalComment on above: Performed By: #### 7486052, [id number], 35776461, 4547536539 ####[facility] (DEFAULT)[address] [place] [address] 05801Vcansgpgzx [Mass/Vol] 0.57 mg/dLLow0.60-1.30[facility] HospitalComment on above:Performed By: #### 8311706, 5863762622, 54571663, 4794464050 ####[facility] (DEFAULT)[address] [place] [address] 98628Lcnhqeq [Mass/Vol]122.0 mg/mHLgae80.0-118.0 [facility] HospitalComment on above:Performed By: #### 8540265, 3585850950, 31743225, [id number] ####[facility] (DEFAULT)[address] [place] [address] 80927Putosxjthl796 mOsm/LInvalid Interpretation CodeGreene Memorial Hospital HospitalComment on above:Performed By: #### 6295254, [id number], 79465415, [id number] ####[facility] (DEFAULT)[address] [place] [address] 24684Ljyruusmi [Moles/Vol]3.5 mmol/LLow3.6-5.1Msouthern [facility]io medical center HospitalComment on above: Performed By: #### 7837628, 2284986470, 52320661, 9733913002 ####[facility] (DEFAULT)[address] [place] [address] 79691Srypyz [Moles/Vol]137.0 mmol/CGqtiwn928.0-144.0[facility] HospitalComment on above:Performed By: #### 0176699, 8712171267, 29367488, [id number] ####[facility] (DEFAULT)[address] [place] [address] 65827Asju nitrogen [Mass/Vol]14 mg/dLNormal8-26 [facility] HospitalComment on above:Performed By: #### 8329195, 9404916479, 75249693, 8686234891 ####[facility] (DEFAULT)[address] [place] [address] 53973Oece nitrogen/Creatinine [Mass ratio]25.0 mg/mgHigh4.6-16.2 [facility] HospitalComment on above:Performed By: #### 7899061, 3935283837, 68931873, [id number] ####[facility] (DEFAULT)[address] [place] [address] 69505XOR w/ Auto Diffon 96-43-6065Igeczdgmfdg distribution width (RBC) [Ratio]15.6 %High11.5-15.0[facility] HospitalComment on above:Performed By: #### 6296056, 9756728152, 94205557, [id number] ####[facility] (DEFAULT)[address] [place] [address] 45761Telxfqnqbn (Bld) [Volume fraction]36.5 %Bhrjwr39.7-40.4[facility] HospitalComment on above:Performed By: #### 4171594, 7721740005, 52095160, [id number] ####[facility] (DEFAULT)[address] [place] [address] 48718Btzrvtngon (Bld) [Mass/Vol]12.0 g/pUDcfjdg38.3-15.9[facility] HospitalComment on above:Performed By: #### 4308652, 5496222241, 21382085, 5520722740 ####[facility] (DEFAULT)[address] [place] [address] 86639Onrlu WBC7.9 e98Mxnrxri Interpretation CodeGreene Memorial Hospital HospitalComment on above:Performed By: #### 2786525, [id number], 42022695, 5766111535 ####[facility] (DEFAULT)[address] [place] [address] 93275Eif Diff?AutoNormalGreene Memorial Hospital HospitalComment on above:Performed By: #### 5656737, 9798063069, 75746361, 9808828727 ####[facility] (DEFAULT)[address] [place] [address] 39953RWA (RBC) [Entitic mass]27 ljRpxvxg05-58 [facility] HospitalComment on above:Performed By: #### 1302773, 8197415174, 44417084, 4464415723 ####[facility] (DEFAULT)[address] [place] [address] 32992KHON (RBC) [Mass/Vol]33 g/zTXggegk45-97Bxtglihg HospitalComment on above:Performed By: #### 7572712, 0496684866, 38701634, [id number] ####[facility] (DEFAULT)[address] [place] [address] 07517QFU (RBC) [Entitic vol]82 bMGgpjeq16-649Rfseweus HospitalComment on above:Performed By: #### 7757849, 4478730170, 60252610, 8188104414 ####[facility] (DEFAULT)[address] [place] [address] 40070Tkoamlgw009 q39Nispxz757-923 [facility] HospitalComment on above:Performed By: #### 9680776, 2971764537, 07479665, 3685505995 ####[facility] (DEFAULT)[address] [place] [address] 85190Sugmzhnr mean volume (Bld) [Entitic vol]9.3 fLNormal6.3-10.2 [facility] HospitalComment on above:Performed By: #### 3158048, 5682126520, 31932396, [id number] ####[facility] (DEFAULT)[address] [place] [address] 17014OQL3.46 a70Zynjsj2.70-5.30[facility] HospitalComment on above: Performed By: #### 3494257, 9761096903, 99725783, 3278911445 ####[facility] (DEFAULT)[address] [place] [address] 05320JJM4.9 k92Xjnvza 3.5-10.5[facility] HospitalComment on above:Performed By: #### 7357540, 8954761250, 24621894, 9402167525 ####[facility] (DEFAULT)[address] [place] [address] 64937QaiG6n Standardon 12-30-2020.Hb12.8Invalid Interpretation [facility] CenterComment on above:Performed By: #### 5211103, [id number], 06826292, [id number] ####[facility] (DEFAULT)[address] [place] [address] 84973.Hgb A1c0.57 g/dLInvalid Interpretation [facility] HospitalComment on above:Performed By: #### 7424219, 4974926870, 57444303, [id number] ####[facility] (DEFAULT)[address] [place] [address] 08479Chpntcq [Mass/Vol]132 mg/dLInvalid Interpretation [facility] Comment on above:Performed By: #### 7724953, 3042933056, 31984543, [id number] ####[facility] (DEFAULT)[address] [place], [place] [address]TkN5y (Bld) [Mass fraction]6.2 %Normal4.6-6.2Msouthern [facility] HospitalComment on above: Performed By: #### 7769644, 3578527533, 31928528, 2469073194 ####[facility] (DEFAULT)[address] [place], [place] [address]LA PELVIS AND TRANSVAG on 47-99-9237IX PELVIS AND TRANSVAGEXAMINATION: US PELVIS AND TRANSVAG [...] authenticated by: ANA PAULA CONNELL Date: 2020-09-18 14:[address] [place], [place] [address]US PELVIS AND TRANSVAGon 71-10-2027LH PELVIS AND TRANSVAG EXAMINATION: US PELVIS AND [...] Electronically authenticated by: KAYLYN HUNT Date: 2020-08-07 09:30[facility] Vital Signs Date TimeVital SignValuePerforming JpdqkdmhuOeqbszmr54-93-4100 11:17-0500Body cedpib404.6 cmCorey Christiana DO Work Phone: [facility]linQxeuobxafw03-17-6927 11:17-0500Body mass index (BMI) [Ratio]58.72 kg/e4Mknty Christiana DO Work Phone: [facility]linLlasdojrnh77-48-6947 11:17-0500Body xbofwh312.02 kgCorey Christiana DO Work Phone: [facility]linSwagzvpvzw63-97-9373 11:17-0500Diastolic blood ulqryryu56 mm[Hg]David Christiana DO Work Phone: [facility]oplinDzvbpryima10-11-1349 11:17-0500Systolic blood azyblfxh318 mm[Hg]David Christiana DO Work Phone: [facility]oplinYgxeqiqnzv81-31-6172 13:30-0500Body adjuth191.91 cmApril Ahumada MD Work Phone: [phone]11-04-2025 13:30-0500 Body mass index (BMI) [Ratio]58.1 kg/l4KadlkrApril Ahumada MD Work Phone: [phone]11-04-2025 13:30-0500 Body bzvemg977.01 kgApril Ahumada MD Work Phone: [phone]11-04-2025 13:30-0500 Diastolic blood jqzmgjua23 mm[Hg]April Ahumada MD Work Phone: [phone]11-04-2025 13:30-0500 Heart rate70 /Cherise Ahumada MD Work Phone: [phone]11-04-2025 13:30-0500 Systolic blood itawgycm184 mm[Hg]April Ahumada MD Work Phone: [phone] [place], [place] [address]11-03-2025 13:07-0500 Body xftvui206.91 cmApril Ahumada MD Work Phone: [phone] [place], [place] [address]11-03-2025 13:07-0500 Body mass index (BMI) [Ratio]58.3 kg/p5JzdhbsApril Ahumada MD Work Phone: 1(055)[address] [place], [place] 0864811-03-2025 13:07-0500 Body qqgtvi370.46 kgApril Ahumada MD Work Phone: 1(106)[address] [place], [place] 0864811-03-2025 13:07-0500 Diastolic blood ypghlgwz28 mm[Hg]April Ahumada MD Work Phone: 1(198)[address] [place], [place] 0864811-03-2025 13:07-0500 Heart rate67 /Cherise Ahumada MD Work Phone: 1(867)[address] [place], [place] 0864811-03-2025 13:07-0500 Systolic blood zitsgfes351 mm[Hg]April Ahumada MD Work Phone: 1(047)[address] [place], [place] 0864810-29-2025 09:09-0400 Body .91 cmApril Ahumada MD Work Phone: 1(519)[address] [place], [place] 0864810-29-2025 09:09-0400 Body mass index (BMI) [Ratio]58.1 kg/v9VmbkccApril Ahumada MD Work Phone: 1(411)[address] [place], [place] 0864810-29-2025 09:09-0400 Body ungoxb951.01 kgApril Ahumada MD Work Phone: 1(782)[address] [place], [place] 0864810-29-2025 09:09-0400 Diastolic blood tldddovb42 mm[Hg]April Ahumada MD Work Phone: 1(694)[address] [place], [place] 0864810-29-2025 09:09-0400 Heart rate66 /Cherise Ahumada MD Work Phone: 1(876)[phone]10-29-2025 09:09-0400 SaO2% (BldA) [Mass fraction]96 %April Ahumada MD Work Phone: 1(852)[phone]10-29-2025 09:09-0400 Systolic blood kpkxiwxk164 mm[Hg]April Ahumada MD Work Phone: 1(220)218-[address] [place], [place] 1175410-13-2025 14:46-0400 Body ufwjhm591.6 cmArgentina Richter MD Work Phone: [facility]10-13-2025 14:46-0400Body mass index (BMI) [Ratio]58.88 kg/c6VqwhsazArgentina Richter MD Work Phone: [facility]10-13-2025 14:46-0400Body ytrhwbmljbp93.2 [degF]Argentina Richter MD Work Phone: [facility]10-13-2025 14:46-0400Body txaasu221.47 kgArgentina Richter MD Work Phone: [facility]10-13-2025 11:30-0400Body akgmxw031.11 cmApril Ahumada MD Work Phone: [phone]([phone]10-13-2025 11:30-0400 Body mass index (BMI) [Ratio]61 kg/a5ZmuninApril Ahumada MD Work Phone: 1([phone])939-22[facility]10-13-2025 11:30-0400 Body bwzfvu115.35 kgApril Ahumada MD Work Phone: 1(971)050-88[facility]10-13-2025 11:30-0400 Diastolic blood fvkkiihl45 mm[Hg]April Ahumada MD Work Phone: 1(405)921-18[facility]10-13-2025 11:30-0400 Heart rate59 /Cherise Ahumada MD Work Phone: 1(748)474-14[facility]10-13-2025 11:30-0400 Respiratory rate18 /Cherise Ahumada MD Work Phone: 1(608)[address]10-13-2025 11:30-0400 Systolic blood mm[Hg]April Ahumada MD Work Phone: 1(759)[address]10-09-2025 13:49-0400 Body hdxkyt790.64 cmApril Ahumada MD Work Phone: 1(436)[address]10-09-2025 13:49-0400 Body mass index (BMI) [Ratio]58.7 kg/b0HjjiogApril Ahumada MD Work Phone: 1(140)[address] [place], [place] 0864810-09-2025 13:49-0400 Body szlkpy817.1 kgApril Ahumada MD Work Phone: 1(741)[address] [place], [place] 0864810-09-2025 13:49-0400 Diastolic blood mshlyvyb01 mm[Hg]April Ahumada MD Work Phone: 1(500)[address] [place], [place] 0864810-09-2025 13:49-0400 Heart rate75 /Cherise Ahumada MD Work Phone: 1(182)[address] [place], [place] 0864810-09-2025 13:49-0400 Systolic blood dkvpcxki450 mm[Hg]April Ahumada MD Work Phone: 1(983)[address]10-02-2025 15:34-0400 Body rocngt315.6 cmLisa Krotzer PILOT TEACHER-ENROLLMENT MANAGEMENT MANAGER Work Phone: [facility]10-02-2025 15:34-0400Body mass index (BMI) [Ratio]58.36 kg/m2Lisa Krotzer PILOT TEACHER-ENROLLMENT MANAGEMENT MANAGER Work Phone: [facility]10-02-2025 15:34-0400Body mtqaww938.02 kgLisa Krotzer PILOT TEACHER-ENROLLMENT MANAGEMENT MANAGER Work Phone: [facility]10-02-2025 15:34-0400Diastolic blood veqxjwxc53 mm[Hg]Trice Darrell PILOT TEACHER-ENROLLMENT MANAGEMENT MANAGER Work Phone: [facility]10-02-2025 15:34-0400Systolic blood bzcpriqv376 mm[Hg]Trice Ramírez PILOT TEACHER-ENROLLMENT MANAGEMENT MANAGER Work Phone: [facility]09-19-2025 09:38-0400Body lzjofh573.64 cmApril Ahumada MD Work Phone: 1([phone]92[facility]09-19-2025 09:38-0400 Body mass index (BMI) [Ratio]59.3 kg/e6WwyiczApril Ahumada MD Work Phone: 1(740)602[facility]08[facility]09-19-2025 09:38-0400 Body tpogdo531.92 kgApril Ahumada MD Work Phone: 1(034)[address]09-12-2025 13:57-0400 Body bxmusv058.64 cmApril Ahumada MD Work Phone: 1(652)[address]09-12-2025 13:57-0400 Body mass index (BMI) [Ratio]59.3 kg/l3EulipjApril Ahumada MD Work Phone: 1(921)142[facility]79[facility]09-12-2025 13:57-0400 Body hsiwlh309.92 kgApril Ahumada MD Work Phone: 1(795)[phone]09-12-2025 13:57-0400 Diastolic blood cqiuafmw26 mm[Hg]April Ahumada MD Work Phone: 1(859)827-[address] [place], [place] 1175409-12-2025 13:57-0400 Heart rate66 /minApril Ahumada MD Work Phone: 1(223)709-[address] [place], [place] 1175409-12-2025 13:57-0400 Systolic blood mhdwgfdi519 mm[Hg]April Ahumada MD Work Phone: 1(956)[phone]09-02-2025 14:32-0400 Body ryhysq230.64 cmApril Ahumada MD Work Phone: 1([phone]09-02-2025 14:32-0400 Body mass index (BMI) [Ratio]59.7 kg/x6NphbteApril Ahumada MD Work Phone: 1(385)[address]09-02-2025 14:32-0400 Body .82 kgApril Ahumada MD Work Phone: 1(548)[address] [place], [place] 0864809-02-2025 14:32-0400 Diastolic blood cluhaurn94 mm[Hg]April Ahumada MD Work Phone: 1(752)[address] [place], [place] 0864809-02-2025 14:32-0400 Heart rate76 /Cherise Ahumada MD Work Phone: 1(340)[address] [place], [place] 0864809-02-2025 14:32-0400 Systolic blood mm[Hg]April Ahumada MD Work Phone: 1(934)[address] [place], [place] 0864808-28-2025 09:18-0400 Body ziawnw834.64 cmApril Ahumada MD Work Phone: 1(785)[address] [place], [place] 0864808-28-2025 09:18-0400 Body mass index (BMI) [Ratio]59.2 kg/g8MmebqjApril Ahumada MD Work Phone: 1(595)[address] [place], [place] 0864808-28-2025 09:18-0400 Body .46 kgApril Ahumada MD Work Phone: 1(599)[address] [place], [place] 0864808-28-2025 09:18-0400 Diastolic blood wghtzurb02 mm[Hg]April Ahumada MD Work Phone: 1(459)[address] [place], [place] 0864808-28-2025 09:18-0400 Heart rate78 /Cherise Ahumada MD Work Phone: 1(890)[address] [place], [place] 0864808-28-2025 09:18-0400 SaO2% (BldA) [Mass fraction]93 %April Ahumada MD Work Phone: 1(505)[address] [place], [place] 0864808-28-2025 09:18-0400 Systolic blood goxewoos098 mm[Hg]April Ahumada MD Work Phone: 1(815)[address] [place], [place] 0864808-19-2025 15:03-0400 Body fjebbp670.6 cmArgentina Richter MD Work Phone: [facility]08-19-2025 15:03-0400Body mass index (BMI) [Ratio]58.91 kg/x6XshzcfnArgentina Richter MD Work Phone: [facility]08-19-2025 15:03-0400Body .56 kgArgentina Richter MD Work Phone: [facility]08-18-2025 09:57-0400Body urtwrg466.64 cmApril Ahumada MD Work Phone: 1(795)[address]08-18-2025 09:57-0400 Body mass index (BMI) [Ratio]129.8 kg/j0SrikfpApril Ahumada MD Work Phone: 1(674)[address]08-18-2025 09:57-0400 Body kgApril Ahumada MD Work Phone: 1(317)[address]08-18-2025 09:57-0400 Diastolic blood tkyggsyn77 mm[Hg]April Ahumada MD Work Phone: 1(266)[address]08-18-2025 09:57-0400 Heart rate71 /Cherise Ahumada MD Work Phone: 1(699)[address]08-18-2025 09:57-0400 Systolic blood fzgcadmf898 mm[Hg]April Ahumada MD Work Phone: 1(615)[address]08-14-2025 20:00-0400 Diastolic blood havppxxw13 mm[Hg]April Ahumada MD Work Phone: 1(861)[address]08-14-2025 20:00-0400 Heart rate75 /Cherise Ahumada MD Work Phone: 1(813)[address]08-14-2025 20:00-0400 SaO2% (BldA) [Mass fraction]94 %April Ahumada MD Work Phone: 1([phone]08-14-2025 20:00-0400 Systolic blood ofnvqcqc839 mm[Hg]April Ahumada MD Work Phone: 1(447)[address]08-14-2025 18:45-0400 Respiratory rate20 /minApril Ahumada MD Work Phone: 1(550)[address]08-14-2025 15:41-0400 Body keprog441.64 cmApril Ahumada MD Work Phone: 1(989)[address]08-14-2025 15:41-0400 Body .5 [degF]April Ahumada MD Work Phone: 1(744)[address]08-14-2025 15:41-0400 Body kgApril Ahumada MD Work Phone: 1(979)[address] [place], [place] 0864807-02-2025 11:06-0400 Body cznrge390.64 cmApril Ahumada MD Work Phone: 1(771)[address] [place], [place] 0864807-02-2025 11:06-0400 Body mass index (BMI) [Ratio]58.6 kg/y3OvnarbApril Ahumada MD Work Phone: 1(839)[address]07-02-2025 11:06-0400 Body qreyshfznwv05 [degF]April Ahumada MD Work Phone: 1(476)[address] [place], [place] 0864807-02-2025 11:06-0400 Body .65 kgApril Ahumada MD Work Phone: 1(013)[address] [place], [place] 0864807-02-2025 11:06-0400 Diastolic blood abbggvdb93 mm[Hg]April Ahumada MD Work Phone: 1(409)[address] [place], [place] 0864807-02-2025 11:06-0400 Heart rate63 /Cherise Ahumada MD Work Phone: 1(400)[address] [place], [place] 0864807-02-2025 11:06-0400 SaO2% (BldA) [Mass fraction]97 %April Ahumada MD Work Phone: 1(906)[address]07-02-2025 11:06-0400 Systolic blood qagoetvh777 mm[Hg]April Ahumada MD Work Phone: [facility]04-23-2025 09:49-0400 Body .64 cmCh[facility]04-23-2025 09:49-0400Body mass index (BMI) [Ratio]58.6 kg/p9SopehonzkChillicothe Hospital04-23-2025 09:49-0400Body munyfs480.65 kgChillicothe Hospital04-23-2025 09:49-0400Diastolic blood jqegldkc33 mm[Hg][facility] 10-16-2024 09:49-0400Heart rate72 /minChillicothe Hospital 10-16-2024 09:49-0400Systolic blood mm[Hg][facility]04-15-2025 10:21-0400Body wvvhna194.6 cmLiam Waggoner MD Work Phone: [facility]linOktyrqdxcg26[facility]18-8544 10:21-0400Body mass index (BMI) [Ratio]58.43 kg/n0NcbovrLiam Waggoner MD Work Phone: [facility]oplinIvlekryexk05-58-3567 10:21-0400Body rqryzo233.2 kgLiam Waggoner MD Work Phone: [facility]oplinYeqtbjkzer50-95-0704 10:21-0400Diastolic blood trsdadgu29 mm[Hg]Liam Waggoner MD Work Phone: [facility]oplinFuuskllief94-22-8548 10:21-0400Heart rate76 /min Liam Waggoner MD Work Phone: [place] [address]Ujkdhhjnyr50-71-3391 10:21-0400Systolic blood spsmfpin551 mm[Hg]Liam Waggoner MD Work Phone: [facility] JoplinLxldrevgeo77-21-7302 11:06-0400Body vqydnr038.64 cmCh[facility]ic[facility] Hospital04-10-2025 11:06-0400Body mass index (BMI) [Ratio]58.4 kg/k2YluifmvayChillicothe Hospital04-10-2025 11:06-0400Body nntsmi346.2 kgCh[facility]icothe Hospital04-10-2025 11:06-0400Diastolic blood qgltanzi43 mm[Hg][facility]04-10-2025 11:06-0400 Heart rate77 /[facility]04-10-2025 11:06-0400Systolic blood kovboxwq923 mm[Hg][facility]03-20-2025 09:06-0400 Body .64 cmCh[facility]03-20-2025 09:06-0400Body mass index (BMI) [Ratio]59.3 kg/b9JavabgimhChillicothe Hospital03-20-2025 09:06-0400Body .58 kgCh[facility]03-20-2025 09:06-0400Diastolic blood uswidszq18 mm[Hg][facility] 09-12-2024 09:06-0400Heart rate66 /[facility] 09-12-2024 09:06-0400Systolic blood mstsfbky967 mm[Hg][facility]02-24-2025 15:00-0500Body jcdcpi065.64 cmChillicothe Hospital02-24-2025 15:00-0500Body mass index (BMI) [Ratio]57.2 kg/v7PxtvxofamChillicothe Hospital02-24-2025 15:00-0500Body pzocdk055 kgChillicothe Hospital02-24-2025 15:00-0500Diastolic blood ulpwxukc93 mm[Hg][facility]02-24-2025 15:00-0500Heart rate61 /[facility]02-24-2025 15:00-0500Respiratory rate18 /[facility]02-24-2025 15:00-0220XkB0% (BldA) [Mass fraction]96 %[facility]02-24-2025 15:00-0500Systolic blood adfpdcgi431 mm[Hg] [facility]02-18-2025 14:16-0500Body ikvwar110.6 cmLiam Waggoner MD Work Phone: 1(419)[address] [place], [place] 7823302-18-2025 14:16-0500Body mass index (BMI) [Ratio]58.91 kg/o0WdclxfLiam Waggoner MD Work Phone: 1(096)[address] [place], [place] 7823302-18-2025 14:16-0500Body bbnifk998.56 kgLiam Waggoner MD Work Phone: 1(511)[address] [place], [place] 7823302-18-2025 14:16-0500Diastolic blood beikfvlh02 mm[Hg]Liam Waggoner MD Work Phone: 1(707)[address] [place], [place] 7823302-18-2025 14:16-0500Heart rate66 /min Liam Waggoner MD Work Phone: 1(170)[address] [place], [place] 7823302-18-2025 14:16-0500Systolic blood yqlhymko304 mm[Hg]Liam Waggoner MD Work Phone: 1(277)[address] [place], [place] 7823311-18-2024 13:18-0500Body pcwcai501.64 cmCh[facility]icothe Hospital11-18-2024 13:18-0500Body mass index (BMI) [Ratio]57.6 kg/c0XydhkeaftChillicothe Hospital11-18-2024 13:18-0500Body qltqratxwov34.6 [degF][facility]11-18-2024 13:18-0500Body yuontz709.93 kgChillicothe Hospital11-18-2024 13:18-0500Diastolic blood audpksjn40 mm[Hg][facility]11-18-2024 13:18-0500 Heart rate66 /minChillicothe Hospital11-18-2024 13:18-0500Systolic blood hquqyqsb377 mm[Hg][facility]10-22-2024 11:35-0400 Body ujxezd485.6 cmLiam Waggoner MD Work Phone: 1(347)[address] [place], [place] 7823310-22-2024 11:35-0400Body mass index (BMI) [Ratio]57.46 kg/z2XwwfqgLiam Waggoner MD Work Phone: 1([phone]oplinAehayrfftg58-47-6058 11:35-0400Body kffizk953.48 kgLiam Waggoner MD Work Phone: [facility]oplinIrhscpfbtu62-61-2826 11:35-0400Diastolic blood tkezudwf23 mm[Hg]Liam Waggoner MD Work Phone: [facility]oplinYurigjiexg83-04-8552 11:35-0400Systolic blood mm[Hg]iLam Waggoner MD Work Phone: [facility]oplinDplqpiqdon40-66-1861 11:09-0400Body piqggf200.64 [facility]10-07-2024 11:09-0400Body mass index (BMI) [Ratio]57.9 kg/v2KbugdejfyChillicothe Hospital10-07-2024 11:09-0400Body eijkyz469.83 [facility]10-07-2024 11:09-0400Diastolic blood oubiqxnn91 mm[Hg][facility]10-07-2024 11:09-0400 Heart rate68 /[facility]10-07-2024 11:09-0400 Respiratory rate16 /[facility]10-07-2024 11:09-0400 SaO2% (BldA) [Mass fraction]97 %[facility]10-07-2024 11:09-0400Systolic blood iklbgltu240 mm[Hg][facility] 01-03-2024 11:50-0400Body lzmaju744.64 cmCh[facility]icothe Hospital 01-03-2024 11:50-0400Body mass index (BMI) [Ratio]57.9 kg/d4YdsxxlhskChillicothe Hospital07-10-2024 11:50-0400Body astecr038.83 [facility]07-10-2024 11:50-0400Diastolic blood ewcbflym37 mm[Hg][facility]07-10-2024 11:50-0400Heart rate66 /[facility]07-10-2024 11:50-0400Systolic blood mgvaadiz358 mm[Hg][facility]06-25-2024 11:22-0400Body gtilhd583.64 cmChillicothe Hospital06-25-2024 11:22-0400Body mass index (BMI) [Ratio]56.8 kg/a2VfrdbgdabChillicothe Hospital06-25-2024 11:22-0400Body .66 kg [facility]06-25-2024 11:22-0400Diastolic blood tiavpdvo67 mm[Hg][facility]06-25-2024 11:22-0400Heart rate63 /min [facility]06-25-2024 11:22-0400Systolic blood qwnfzkyg304 mm[Hg][facility]06-17-2024 11:34-0400Body ywosld524.64 cmChillicothe Hospital06-17-2024 11:34-0400Body mass index (BMI) [Ratio]57.2 kg/j0YcosvnzyeChillicothe Hospital06-17-2024 11:34-0400Body wfupfp596.02 [facility]06-17-2024 11:34-0400Diastolic blood nsmkkqpo73 mm[Hg][facility]06-17-2024 11:34-0400 Heart rate67 /[facility]06-17-2024 11:34-0400Systolic blood kfjderlf672 mm[Hg][facility]06-11-2024 11:02-0400 Body .64 cmCh[facility]icothe Hospital06-11-2024 11:02-0400Body mass index (BMI) [Ratio]57.6 kg/a2TrwxfjeikChillicothe Hospital06-11-2024 11:02-0400Body vqhady080.93 [facility]06-11-2024 11:02-0400Diastolic blood xzyzxupo68 mm[Hg][facility] 12-05-2023 11:02-0400Heart rate67 /[facility] 12-05-2023 11:02-0400Systolic blood mm[Hg][facility]05-09-2024 15:17-0400Body fallry638.64 cmChillicothe Hospital05-09-2024 15:17-0400Body mass index (BMI) [Ratio]58.7 kg/o9LtcgqykpfChillicothe Hospital05-09-2024 15:17-0400Body .1 kgChillicothe Hospital05-09-2024 15:17-0400Diastolic blood pyrqdxbx98 mm[Hg] [facility]05-09-2024 15:17-0400Heart rate76 /minChillicothe Hospital05-09-2024 15:17-0400Systolic blood gcurthsr441 mm[Hg] [facility]12-22-2023 11:45-0500Body gryjhc185.64 cmNhungjeannette Ahumada Other [employer] Other 12-22-2023 11:45-0500Body mass index (BMI) [Ratio] 56.49 kg/e9Ldtmey Ede Other [employer] Other 12-22-2023 11:45-0500Body ptbahc965.76 kgNhungjeannette Ede Other [employer] Other 12-22-2023 11:45-0500Diastolic blood sflgvgaj21 mm[Hg] April Ahumada Other [employer] Other 12-22-2023 11:45-0500Systolic blood oddcpwim056 mm[Hg] April Ahumada Other [employer] Other 10-26-2023 10:30-0400Body niigur496.64 cmBrigitte Mckay Other [employer] Other 10-26-2023 10:30-0400Body mass index (BMI) [Ratio] 58.91 kg/n0CdkwfmsjBrigitte Mckay Other [employer] Other 10-26-2023 10:30-0400Body mchnuionkgt45 [degF]Brigitte Finer Other [employer] Other 10-26-2023 10:30-0400Body npbail026.56 kgBrigitte Mckay Other [employer] Other 10-26-2023 10:30-0400Respiratory rate18 /minBrigitte Mckay Other [employer] Other 10-26-2023 10:30-0541FlW5% (BldA) [Mass fraction]97 % Brigitte Walljoanen Other [employer] Other 08-29-2023 11:00-0400Body ocxfwc058.64 cmApril Ahumada Other [employer] Other 08-29-2023 11:00-0400Body mass index (BMI) [Ratio] 59.07 kg/u7EcchtbApril Ahumaad Other [employer] Other 08-29-2023 11:00-0400Body vhwvun890.02 kgApril Ahumada Other [employer] Other 08-29-2023 11:00-0400Diastolic blood yokzvncx25 mm[Hg] April Ahumada Other [employer] Other 08-29-2023 11:00-0400Systolic blood bcrrapcn861 mm[Hg] April Ahumada Other [employer] Other 03-14-2023 11:30-0400Body ijfuul811.64 Rob Nichole Other [employer] Other 03-14-2023 11:30-0400Body mass index (BMI) [Ratio] 57.13 kg/m5Adekl Nichole Other [employer] Other 03-14-2023 11:30-0400Body wbvvew672.57 kgPeggy Nichole Other [employer] Other 03-14-2023 11:30-0400Diastolic blood mm[Hg] Bianka Nichole Other [employer] Other 03-14-2023 11:30-2167OcU8% (BldA) [Mass fraction]98 % Bianka Nichole Other [employer] Other 03-14-2023 11:30-0400Systolic blood dzxrsygu407 mm[Hg] Bianka Nichole Other [employer] Other 01-01-2023 14:53-0500Body .1 [degF] [facility] Phone: [facility]01-01-2023 14:53-0500 Diastolic blood nztwltwa53 mm[Hg][facility] Phone: [facility]01-01-2023 14:53-0500 Heart rate71 /[employer] Work Phone: [facility]01-01-2023 14:53-0500 Respiratory rate18 /minSOther Machine Work Phone: [facility]01-01-2023 14:53-0500 SaO2% (BldA) [Mass fraction]96 %[facility] Phone: [facility]01-01-2023 14:53-0500 Systolic blood erknfrko258 mm[Hg][facility] Phone: [facility]01-01-2023 14:50-0500 Body apruzh549.64 cmServices [facility] Work Phone: [facility]01-01-2023 14:50-0500 Body giawon114.4 kgServices [facility] Work Phone: [facility]10-16-2022 11:10-0400 Body .64 cmAmbdayanna Nelson Other [employer] Other 10-16-2022 11:10-0400Body mass index (BMI) [Ratio] 59.71 kg/v7PzfdkNicole Nelson Other [employer] Other 10-16-2022 11:10-0400Body subamigmjid60.8 [degF]Nicole Nelson Other [employer] Other 10-16-2022 11:10-0400Body .83 kgNicole Nelson Other [employer] Other 10-16-2022 11:10-0400Respiratory rate18 /minNicole Nelson Other [facility] Other 10-16-2022 11:10-6626RsP6% (BldA) [Mass fraction]93 % Nicole Nelson Other [employer] Other Encounters Encounter DateEncounter TypeCare ProviderFacilityStart: 05-07-2025 End: 57-10-2524Xqyazk flowsheetCorey Christiana DO Work Phone: [facility]YNStart: 05-07-2025 End: 37-86-6034Rzyhqb flowsheetCorey Christiana DO Work Phone: [facility]YNStart: 05-07-2025 End: 98-14-1647Qjupds outpatient new 20 minutesCorey Christiana DO Work Phone: [facility] OBGYNComment on above:Menorrhagia with regular cycleStart: 05-07-2025 End: 48-90-0085kziviaojsbRDOQN FAYESSICAONot AvailableStart: 04-29-2025 End: 92-75-5450tiahkmiaihDsktdy E Braun MD Work Phone: [phone]-[facility]qp[facility] GastroStart: 04-29-2025 End: 17-93-2699Vndttop encounter procedurePhilippjoby Clark [facility] Work Phone: Start: 04-28-2025 End: 76-89-3491hfyvppbwzdNpanbs E Braun MD Work Phone: [facility]: 04-28-2025 End: 60-92-2668Cjflwcg encounter Leisa Ahumada MD-[facility] Work Phone: Start: 04-23-2025 End: 57-93-3386tjhnluewvoFeymao E Braun MD Work Phone: [phone]) [phone]-Ugqpduwae Sleep LabStart: 04-23-2025 End: 19-35-6248Rndavjl encounter procedureKajal Guajardo [facility] Work Phone: Start: 50-12-1445Lri-patient / Non-visitEly Dodge MD-[facility] [employer] Work Phone: Start: 04-16-2025 End: 35-58-4733njdrwvrhqgOESJ M KROTZERCincinnati Shriners Hospitaltart: 04-07-2025 End: 88-78-3746Eczbhz outpatient visit 25 minutesArgentina Richter MD Work Phone: [facility] Nose and ThroatComment on above:Benign paroxysmal vertigo of right ear (Primary Dx); Meniere's disease of right ear; Dizziness; Fullness in ear, bilateralStart: 04-07-2025 End: 92-97-5020vcijyccfpePWNWUKM J [facility] Amb[facility] PPGStart: 04-07-2025 End: 04-15-8565votxyjxkoyNseuwn E Braun MD Work Phone: [facility] Work Phone: Start: 04-07-2025 End: 63-40-7175Quzhfvh encounter procedureBrigitte Gomez [facility] Work Phone: Start: 04-03-2025 End: 04-95-3588cyapemgfwsUsyhek E Braun MD Work Phone: [facility] Work Phone: Start: 04-03-2025 End: 35-50-1166Koysxim encounter procedureApril Ahumada [facility] Work Phone: Start: 03-27-2025 End: 58-52-8833evekoieirxXBHL M [facility] PPGStart: 03-27-2025 End: 80-66-9730Vqdsuljop for gynecological examination (general) (routine) without abnormal findingsTrice Ramírez PILOT TEACHER-ENROLLMENT MANAGEMENT MANAGER Work Phone: [facility] Work Phone: Start: 03-27-2025 End: 13-57-2301Yikyjtd preventive medicine new patient 40-64yrsTrice Ramírez PILOT TEACHER-ENROLLMENT MANAGEMENT MANAGER Work Phone: [facility] Obstetrics/GynecologyComment on above:Well woman exam with routine gynecological exam (Primary Dx); Pap smear, as part of routine gynecological examination; Standardized adult depression screening tool completed; Abnormal uterine bleeding; Encounter for screening mammogram for malignant neoplasm of breastStart: 03-27-2025 End: 13-82-9793Mfmplsm encounter procedureTrice Ramírez PILOT TEACHER-ENROLLMENT MANAGEMENT MANAGER Work Phone: [facility] [employer] [facility] Hospitalt[facility]: 03-15-2025 End: 43-76-6171Attnnqi encounter procedureAdonis Ferguson APRN-[facility] Work Phone: Start: 03-15-2025 End: 22-38-6919dhzlzdnhulJgaewc E Braun MD Work Phone: [facility] Work Phone: Start: 03-14-2025 End: 72-55-1044yicxfvfxuyWtdkgf E Braun MD Work Phone: [facility] Work Phone: Start: 03-14-2025 End: 08-82-5805Uiozhxo encounter mayraAdonis Ferguson PILOT TEACHERMiss[facility] Center Work Phone: Start: 03-07-2025 End: 34-73-0472tbsakjledvRdoocy E Braun MD Work Phone: [facility] Work Phone: Start: 03-07-2025 End: 45-12-6098Jeleklw encounter procedureApril Ahumada MD-[facility] Work Phone: Start: 03-07-2025 End: 06-59-6564zrxmilgxfxMSYGXUH J [facility] Hospitaltart: 62-33-1274Evv-patient / Non-visitApoorfredy Dodge MD-[facility] [employer] Work Phone: Start: 03-03-2025 End: 23-09-8557Qaxbrgxmd department patient visitMARJEANNETTE ValdiviaMediEastern Missouri State Hospital HospitalStart: 02-25-2025 End: 79-05-3612viadrlhnbpQfacaq E Braun MD Work Phone: [facility] Work Phone: Start: 02-25-2025 End: 95-95-0495Kfqvoxa encounter Leisa Ahumada MD-[facility] Work Phone: Start: 02-20-2025 End: 10-60-6440spdstamssbNsardp E Braun MD Work Phone: [facility] Work Phone: Start: 02-20-2025 End: 56-82-8662Gqacble encounter procedureKajal Guajardo [facility] Work Phone: Start: 02-18-2025 End: 76-99-6993Rkgigjrcp encounterArgentina Richter MD Work Phone: [facility] - ENTComment on above: MedicineStart: 02-28-1714rcmqdqqvunYVXJLK E BRAUNMagruder Hospital Start: 02-11-2025 End: 40-95-1500Euamev outpatient new 45 minutesMickarma Richter MD Work Phone: [facility] Physicians Ear, Nose and ThroatComment on above:Benign paroxysmal vertigo of right ear (Primary Dx); Meniere's disease of right ear; Dizziness; Fullness in ear, bilateral; Sleep apnea treated with continuous positive airway pressure (CPAP)Start: 02-11-2025 End: 49-40-0520Htpavqfd SupportUniversity Hospitals Tripoint Medical Center Ent Audio 1ProMedrussellville hospital Physicians Ear, Nose and ThroatComment on above:Dizziness (Primary Dx); Fullness in ear, bilateral; Tinnitus of both earsStart: 02-10-2025 End: 39-18-6613ajymqxmrxnAssqzb E Braun MD Work Phone: [facility] Work Phone: Start: 02-10-2025 End: 21-15-0693Pdtmqde encounter procedureApril Ahumada MD-[facility] Work Phone: Start: 44-97-3984Kxi-patient / Non-visitCatherine Cuong FIERRO-[facility] Work Phone: Start: 02-06-2025 End: 74-65-7434Bbaezdpfi department patient visitApril Ahumada MD Work Phone: [phone]-Hpjgnqwrd Room Work Phone: Start: 12-25-2024 End: 66-75-1571wcegbgfmdqEdhxwt E Braun MD Work Phone: [facility] Work Phone: Start: 12-25-2024 End: 82-57-0107Gnjlozu encounter procedureApril Ahumada MD-[facility] Work Phone: Start: 93-61-2014iqfkkcafvtUchebh E Braun Facility:[facility] Columbustart: 89-36-0507Btdibhosdm Recurring Mendez Doherty [facility] CredibleStart: 10-16-2024 End: 65-25-1192jnodrfsevlKancqctvgBarnesville Hospital Work Phone: Start: 10-16-2024 End: 86-75-7086Jkwwqlw encounter procedureFirsthealth Physician GroupMercy Health [facility] Work Phone: Start: 10-08-2024 End: 57-39-8345Rtkksu flowsheetLiam Waggoner MD Work Phone: noMS CI ENTStart: 10-08-2024 End: 56-80-4779Bgrbux Sneha Waggoner MD Work Phone: noms CI ENTStart: 10-08-2024 End: 60-61-9724yqhxpdipakIKXFIJ H TIMMISNot AvailableStart: 10-08-2024 End: 32-09-6659Rrinfc outpatient visit 25 minutesHidarcie Waggoner MD Work Phone: noms CI ENTComment on above:Active cochlear Meniere disease of right ear (Primary Dx)Start: 10-03-2024 End: 30-46-7107kjiujylqsgKodbiqwyhBarnesville Hospital Work Phone: Start: 10-03-2024 End: 84-37-1893Logyrkl encounter procedureHallie Physician GroupMercy Health [facility] Work Phone: Start: 09-12-2024 End: 62-37-4306rbzdfjacneBgxuydalbBarnesville Hospital Work Phone: Start: 09-12-2024 End: 82-10-8148Ummlodt encounter procedureFirsthealth Physician [facility] Work Phone: Start: 08-19-2024 End: 39-84-0292frsmsudjppMrbthmyyaMcKitrick Hospital Work Phone: Start: 08-19-2024 End: 59-59-2539Znzbjsj encounter procedureFirsthealth Physician [facility] Work Phone: Start: 08-13-2024 End: 14-74-7785Abdjwq outpatient visit 25 minutesHidarcie Waggoner MD Work Phone: noms CI ENTComment on above:Peripheral vestibulopathy of right ear (Primary Dx); Migrainous dizziness; Active cochlear Meniere disease of right earStart: 08-13-2024 End: 20-65-7826jgtevpsleiLAWDTS H TIMMISNot AvailableStart: 08-13-2024 End: 57-21-8963Shfjsv flowsheetHidarcie Waggoner MD Work Phone: noms CI ENTStart: 08-13-2024 End: 06-95-0061Fbjvjw flowsheetLiam Waggoner MD Work Phone: noms CI ENTStart: 07-30-2024 End: 95-68-1959Kjjfhlqux encounterHidarcie Waggoner MD Work Phone: noms ENT NORWALKStart: 07-29-2024 End: 66-01-9688Xqqzvaky SupportLabrennen Heenairma TORRES Work Phone: [facility] - AudiologyComment on above:Dizziness and giddiness (Primary Dx)Start: 05-13-2024 End: 41-26-7434zmsohwagbzSglonaoxxMcKitrick Hospital Work Phone: Start: 05-13-2024 End: 27-72-6243Wzhiirx encounter procedureFirsthealth Physician [facility] Work Phone: Start: 04-16-2024 End: 14-00-5503Uodvzz Sneha Waggoner MD Work Phone: noMS CI ENTStart: 04-16-2024 End: 88-70-4171Akgogu Sneha Waggoner MD Work Phone: noMS CI ENTStart: 04-16-2024 End: 78-49-7215Qalsmy outpatient new 45 minutesLiam Waggoner MD Work Phone: noMS CI ENTComment on above:Sensorineural hearing loss (SNHL) of right ear with unrestricted hearing of left ear (Primary Dx); Dizziness and giddiness; Migraine without status migrainosus, not intractable, unspecified migraine type ([facility]/HCC)Start: 04-01-2024 End: 28-04-6504rjpwxclcswZwljuygvrBarnesville Hospital Work Phone: Start: 04-01-2024 End: 09-17-0988Jxieizm encounter procedureFirsthealth Physician [facility] Work Phone: Start: 02-21-2024 End: 79-95-2969Inygxt flowsheetMyriam Najera CCC-A Work Phone: noMS CI AUDStart: 02-21-2024 End: 42-88-1488Duinjs flowsheetMyriam Clark Dania CCC-A Work Phone: NOMS CI AUDStart: 02-21-2024 End: 56-52-6458Qfavcawp SupportDeamor Najera CCC-A Work Phone: noMS CI AUDComment on above:Sensorineural hearing loss (SNHL) of both ears (Primary Dx); VertigoStart: 01-03-2024 End: 67-07-1233zxxvixuigmGptdcuuauBarnesville Hospital Work Phone: Start: 01-03-2024 End: 57-47-7618Uwgqfxa encounter procedureFirelands Physician Group-[facility] Work Phone: Start: 12-19-2023 End: 67-44-4639sdoxuhtdwdUdolulupwMcKitrick Hospital Work Phone: Start: 12-19-2023 End: 35-70-9520Yphftik encounter procedureFirelands Physician Group-[facility] Work Phone: Start: 12-11-2023 End: 71-45-4117sjlnuzmzpbIjkwtkgqpMcKitrick Hospital Work Phone: Start: 12-11-2023 End: 43-45-6453Ncrglkc encounter procedureFirelands Physician Group-[facility] Work Phone: Start: 12-05-2023 End: 96-88-7879yvmvqlrcddGgfahqpqmMcKitrick Hospital Work Phone: Start: 12-05-2023 End: 85-67-7326Nqhgnfy encounter procedureFirnewtons Physician Group-[facility] Work Phone: Start: 11-02-2023 End: 91-48-1792rcvwuzcbfrIukimjmjyMcKitrick Hospital Work Phone: Start: 11-02-2023 End: 95-06-5975Wbktyzv encounter procedureFirelands Physician Group-[facility] Work Phone: Start: 06-26-3676Bev-patient / Non-visitFirnewtons Physician Group-[facility] [employer] Work Phone: Start: 06-20-2023 End: 89-64-4692xdpurbnnboGfsokt Ede Other [employer] Other Start: 38-67-5438Qxprkopcb encounterMarjeannette AhumadaBarberton Citizens Hospitaltart: 06-16-2023 End: 38-46-2242gczotlavyoRnlxrr Ede Other noZady [employer] Other Start: 38-41-3039Hqbvhf outpatient visit 15 minutes April [facility] ClinicStart: 06-15-2023 End: 98-27-9864xigdfdqvaaLugirx Ahumada Other [employer] Other Start: 14-18-3621Txgqmwyty encounterApril Ramachandran Medical ClinicStart: 06-12-2023(Televisit) TelevisitApril [facility]ran Medical ClinicStart: 06-12-2023 End: 04-39-1190iqkjfyjnpjAtnxkp Ahumada Other [employer] Other Start: 06-05-2023 End: 84-29-7609xkjapvpolgFabkok Ede Other [employer] Other Start: 50-49-7201Pogfzvemm encounterApril Ramachandran Medical ClinicStart: 04-20-2023 End: 96-46-4510djvsgbbxomSztkjdpz Rohrbacher Other [employer] Other Start: 86-44-3919Cnvuyc outpatient visit 15 minutes Brigitte [facility] ClydeStart: 02-21-2023(PHYS) PhysicalApril [facility]andran Medical ClinicStart: 02-21-2023 End: 62-03-5682pdaonydanyOjbjko Ede Other [employer] Other Start: 52-83-5146Tjkpbhmkr for general adult medical examination without abnormal findingsApril [facility]andran Medical ClinicStart: 66-98-0406Qpmhnquqa encounterApril [facility]achandran Medical ClinicStart: 64-77-7623Gjshir outpatient visit 15 minutesPeggy [facility] SouthStart: 09-06-2022 End: 17-99-2511dfpaaiyaqiAlzayqsq [facility] Work Phone: [facility] Work Phone: Start: 09-06-2022 End: 00-96-1032Gvfghun encounter procedureServices Family Health Work Phone: [facility] Lab Work Phone: Start: 08-03-2022 End: 41-62-2349spcgbklyzqZmsxcch Jordy Other noW[employer] Other Start: 74-99-2651Ujvkiekgr encounterDeNew Lifecare Hospitals of [facility]iski ClinicStart: 06-26-2022 End: 46-88-4544Fdslxnrtg department patient visitServices [facility] Work Phone: [facility]-Emergency [facility] Work Phone: Start: 04-10-2022 End: 71-27-1896wubngycixxTznve Keller Other noZady [employer] Other Start: 36-80-0468Cmhcuh outpatient visit 25 minutes Nicole OmarRubén Urgent Care ClydeStart: 75-68-5822myfduxbdhjVzwpobjo:9090Start: 03-23-2022 End: 63-90-6089ucnkyrarfqZhigwvjn Family [facility] Work Phone: [facility] Work Phone: Start: 03-23-2022 End: 87-58-5509Lkbxvaj encounter procedureServices [facility] Work Phone: [facility]-Electrodiagnostics Start: 02-21-2022 End: 27-26-7887rlyrwhexztPdkw Fitt Other [employer] Other Start: 16-28-2263Oetdbzwfy encounterDawn Medina Hospital ClinicStart: 02-07-2022 End: 54-76-1987Vqkkgvdq ReferredServicMartinsville Memorial Hospital Work Phone: [facility]-IN Family Health ServicesStart: 02-07-2022 End: 37-56-2324hblxuvvsbjMqwktlmaq Breault Other [employer] Other Start: 12-96-4538Aoitte outpatient visit 5 minutes Dominique Ruth [facility] ClydeStart: 01-31-2022 End: 80-24-9094Remttsx encounter procedureServices [facility] Work Phone: [facility]-Lab Main CampusStart: 01-10-2022 End: 25-28-9383Japztrdu ReferredSerBon [facility] Work Phone: [facility] [address] Start: 07-02-2021 End: 90-70-9762hhujnfikzyAWHVIU ROSSFacility:T6Wcvve: 06-30-2021 End: 63-13-9982ogcyderqenNEHNPS ROSSFacility:G1Dkwcu: 06-03-2021 End: 29-72-5345csmuedxbnrWYYWNK ROSSFacility:X8Tlgql: 09-18-2020 End: 64-48-8129tdvegfpiesXB NONE LISTED REQUESTFacility:A8Zzive: 08-07-2020 End: 14-99-8307ohpuvsgcwtBKHDED MOOREFacility:H1 Procedures DateProcedureProcedure DetailPerforming ClinicianStart: 15-52-0117Xlybvseplic David Christiana DO Work Phone: Start: 16-69-5385Cvuqpt-up visitFollow-upMICHAEL J DISHERStart: 87-59-0027Ijehy depression screening assessmentTrice Ramírez APRN-ENROLLMENT MANAGEMENT MANAGER Work Phone: Start: 10-83-7099Lsihncfejzo observation [Identifier] in Cervix by Cyto stainLisa Ramírez PILOT TEACHER-ENROLLMENT MANAGEMENT MANAGER Work Phone: Start: 96-33-5302Inhcsanxwj antibody IgA levelApril Ahumada MD Work Phone: Start: 12-22-4005Kdbcfe scan of lower limb veinsApril Ahumada MD Work Phone: Start: 54-05-0315Lhogf chest X-rayApril Ahumada MD Work Phone: Start: 62-12-0495ZJAHRKXD FUNCTION TESTSDecapital medical centercon [facility] Work Phone: start: 92-98-0714Emjob chest X-rayServices [facility] Work Phone: Start: 27-89-8524MDML-CoV-2, Influenza & RSV (PCR) Services [facility] Work Phone: Plan of Treatment DateCare ActivityDetailAuthorStart: 27-98-5303TQtO,Tdap and Td Vaccines (2 - Td or Tdap)DTaP,Tdap and Td Vaccines (2 - Td or Tdap)[facility] SystemStart: 38-80-8087Ppcaajfzv for malignant neoplasm of cervixNOMS HealthcareStart: 29-18-8944Fouydkwne for malignant neoplasm of cervixPap SmearNationwide Children's Hospital SystemStart: 58-81-3445Cktqlvvzg for malignant neoplasm of breastMammogramNOMS HealthcareStart: 50-45-4620Sazfv BMI ScreeningAdult BMI ScreeningNationwide Children's Hospital SystemStart: 12-36-4096Wvbbt BMI Follow Up PlanAdult BMI Follow Up Plan [facility] SystemStart: 63-23-9970Kkzrt BMI ScreeningAdult BMI Screening [facility] SystemStart: 12-21-6745Ebzsoijsot ScreeningDepression Screening [facility] SystemStart: 35-59-5705Qicjzth ScreeningTobacco Screening [facility] SystemStart: 08-79-8871Hjjxv BMI ScreeningAdult BMI Screening [facility] SystemStart: 52-12-2638Zyuguye ScreeningTobacco Screening [facility] SystemStart: 06-16-2025 End: 35-12-2870Xfszedy encounter ohotspziv67/22/2025 3:15 PM EST Office Visit [facility] [address] [place] [address] Argentina Richter MD [address] [place], [id number] [facility] ThroatStart: 06-11-2025 End: 80-66-9917Ehjcpxv encounter gruycohrp24/17/2025 1:30 PM EST Procedure Visit GABRIELA JACOB [address] [place] [address] David Villeda, DO [address] [place] [address] [facility] Sun OBGYNStart: 05-07-2025 End: 60-65-7125Mnhibyz encounter oxtklgnac75/12/2025 11:20 AM EST Office Visit GABRIELA JACOB [address] [place] [address] David Villeda, DO [address] [place] [address] ArrivedNOMS Sun OBGYNComment on above:ArrivedStart: 04-16-2025 End: 71-52-6591Xtclpna encounter procedureClinton Memorial HospitalStart: 04-07-2025 End: 57-79-0710Mqadjkf encounter /13/2025 2:15 PM EDT Office Visit [facility] [address] [place] [address] Argentina Richter MD [address] [facility], [id number] [facility] ThroatStart: 05-00-4288Plvjeqi referralCity Hospital Work Phone: Start: 03-27-2025 End: 88-58-1815LKT Breast - bilateral screeningMammography screening bilateral with CAD Imaging Routine Encounter for screening mammogram for malignant neoplasm of breast Expected: 03/27/2025, Expires: 05/25/2026[facility] SystemComment on above:Expected: 03/27/2025, Expires: 05/25/2026Start: 03-27-2025 End: 90-68-6360ZN Pelvis transabdominal and transvaginalUltrasound pelvic with transvaginal Imaging Routine Abnormal uterine bleeding Expected: 03/27/2025, Expires: 03/27/2026ProHill [facility] Work Phone: Comment on above:Expected: 03/27/2025, Expires: 03/27/2026Start: 48-45-9353OsbudwcgdSelect Medical Specialty Hospital - Columbustart: 03-07-2025 Patient referralCity Hospital Work Phone: Start: 03-07-2025 End: 45-56-3713Kzapibx encounter ndxaizkjs90/12/2025 10:45 AM EDT Appointment [facility] [address] [place] [address] [facility] ImagingStart: 60-00-7352MPXIF-19 Vaccine ( season)COVID-19 Vaccine ( season)[facility] Greensborotart: 56-30-7147YxmjufpqhRiverside Behavioral Health CenterStart: 02-20-2025 End: 36-76-0044Bgopcmf encounter oxgjawiyl21/28/2025 7:00 AM EDT Appointment [facility] [address] [place] [address] Meniere's disease of right ear; DizzinessProDekalb Regional Medical Center - Total RehabComment on above:Meniere's disease of right ear; DizzinessStart: 02-11-2025 End: 86-75-0985AP Brain and Internal auditory canal WO and W contrast IVMR brain IAC with and without contrast Imaging Routine Meniere's disease of right ear Dizziness Expected: 02/11/2025, Expires: 02/11/2026[facility] Work Phone: Comment on above:Expected: 02/11/2025, Expires: 02/11/2026Start: 93-88-0257Uypcxlz referralCity Hospital Work Phone: Start: 02-78-8221Tukxuh scan of lower limb veinsUS venous duplex LE RTSelect Medical Specialty Hospital - Columbustart: 36-39-3694XV Lower extremity vein - [facility] Hospitaltart: 91-73-5426Udstmvu [facility] Work Phone: Start: 01-63-9761Umwlmus [facility] Work Phone: Start: 08-13-2024 End: 82-13-1033Gbepxvp encounter procedureNOMS CI ENTComment on above:Arrived Start: 05-08-2024 End: 26-21-6813Zwqgrpq encounter mnnapzvwl33/13/2024 9:40 AM EST Office Visit [facility] [address] [place] [address] Jane Kc, [address] [place] [address] [facility] ROUTEStart: 69-58-6699Krbtojmte for malignant neoplasm of breastMammogramNOMS HealthcareStart: 04-16-2024 End: 47-91-1957Urjpqgs encounter qkklalkms82/22/2024 11:30 AM EDT Office Visit [facility] CI ENT [address] [facility] [address] [place] [address] Liam Waggoner MD [address] [place], [place] [address] ArrivedNOMS CI ENTComment on above:ArrivedStart: 02-28-2024 End: 20-73-2795Hahojom encounter navegkevs87/04/2024 8:40 AM EDT Office Visit [facility] [address] [place] [address] Liam Waggoner MD [address] [place] [address] [address] [place] [address] [facility] CI ENTStart: 97-15-2146UDBGX-19 Vaccine ( season)COVID-19 Vaccine ( season)[facility] SystemStart: 90-13-2227Xtwramcoj vaccinationNONJ HealthcareStart: 90-95-6106Orifygb [facility] Work Phone: Start: 95-57-1292Bxhwc BMI ScreeningAdult BMI ScreeningKindred Hospital - Greensborotart: 02-07-2022 End: 27-41-2843Vmevvrbw ReferredDeparted ReferredSelect Medical Specialty Hospital - CincinnatiStart: 42-03-3334Kahfdvpjq for malignant neoplasm of cervixNONJ HealthcareStart: 98-47-5819Udueavavf for malignant neoplasm of cervix Pap SmearNONJ HealthcareStart: 84-27-6674Csmco BMI Follow Up PlanAdult BMI Follow Up PlanNationwide Children's Hospital SystemStart: 76-27-5533Qvmcthnyop Screening Depression ScreeningKindred Hospital - Greensborotart: 44-16-6014Syaphkp Screening Tobacco ScreeningOhioHealth Dublin Methodist Hospital End: 04-54-6019BLI panel - Blood by Automated countCBC without diff Lab Routine Abnormal uterine bleeding 1 Occurrences starting 03/27/2025 until 03/28/2026 [facility] SystemComment on above:1 Occurrences starting 03/27/2025 until 03/28/2026Endomysial antibody IgA levelChillicothe Hospital End: 61-31-2467Sspvkfea [Mass/volume] in Serum or PlasmaFerritin Lab Routine Abnormal uterine bleeding 1 Occurrences starting 03/27/2025 until 03/27/2026 [facility] HospitalComment on above:1 Occurrences starting 03/27/2025 until 03/27/2026Gliadin peptide IgA Ab [Units/volume] in SerumChillicothe HospitalGliadin peptide IgG Ab [Units/volume] in SerumChillicothe HospitalIgA [Mass/volume] in Serum or PlasmaChillicothe Hospital End: 09-62-8350Sxpg and TIBCIron and TIBC Lab Routine Abnormal uterine bleeding 1 Occurrences starting 03/27/2025 until 03/27/2026[facility] SystemComment on above:1 Occurrences starting 03/27/2025 until 03/27/2026MR Brain WO [facility] HospitalMR Brain WO contrastChillicothe HospitalPatient [facility] Work Phone: Patient [facility] Work Phone: Thin Prep Pap TestThin Prep Pap Test Pathology and Cytology Routine Pap smear, as part of routine gynecological examination 03/27/2025 4:18 PM [facility] End: 94-17-2171Ibbaghk profile includes TSH AB6Jjtmoqi profile includes TSH FT4 Lab Routine Abnormal uterine bleeding 1 Occurrences starting 03/27/2025 until 03/27/2026ProSheltering Arms Hospital SystemComment on above:1 Occurrences starting 03/27/2025 until 03/27/2026Tissue transglutaminase IgA Ab [Units/volume] in [facility] WestTissue transglutaminase IgG Ab [Units/volume] in [facility] Immunizations Immunization DateImmunizationNotesCare FvapmnvnAqhjrglj01-73-3571oognwxnum, injectable, quadrivalent, contains preservativeHilary Ian BETANCUR Work Phone: [facility]oplinKwselpfxlg67-69-4591rbbwaboul virus vaccine, unspecified formulationNorth Okaloosa Medical Center Work Phone: [facility]linXphundchob87-70-6447jieuwryei, injectable, quadrivalent, contains preservativeLiam Waggoner MD Work Phone: [facility] JoplinKqackhjnzj33-56-0321alitusa toxoid, reduced diphtheria toxoid, and acellular pertussis vaccine, adsorbedNorthwest Medical Center Behavioral Health [facility] Work Phone: [facility]10-28-2020influenza, injectable, quadrivalent, preservative freeHilary Ian BETANCUR Work Phone: [facility] JoplinFxlgwjwdhe98-22-4611ftmqocpju, injectable, quadrivalent, contains preservativeHilary Ian BETANCUR Work Phone: [facility] JoplinYofrkuusna45-98-6398vhtjakcvq, injectable, quadrivalent, preservative freeHilary Ian BETANCUR Work Phone: [facility] JoplinPvgibsufnr37-38-5263Hujnaxajj, injectable, Madin Mahi Canine Kidney, preservative free, quadrivalentHilary Ian BETANCUR Work Phone: [facility] JoplinHyogjapfef63-94-4851wvimgpdel, injectable, quadrivalent, preservative freeHilary Ian BETANCUR Work Phone: [facility] Payers DatePayer CategoryPayerPolicy ID2025Medicaid [id number] Health Insurance [id number] [employer] [id number] 2023-Present [phone] [address] [address] [place] [id number]10 [id number] Care Other (unspecified)[employer]ENEFITS/[place] [address] [id number] 2..0.233625.265619 [id number] 2..1.498020.3.57[id number] 2..1.145876.3.579.2.23752-44-5456Zpiaohp1354995 2..1.548240.3.579.2.81976-13-8903Yghceat3945002 2..1.654456.3.579.2.10080-80-8628Kquknna0232562 2..1.964597.3.579.[id number] 2..1.659432.3.57[id number] 2..1.171243.3.579.[id number] 2..1.987749.3.57[id number] 2..1.437844.3.579.2.553005-66-5160Pgrqxlx783653783 2.0.1.308543.3.579.2.168296-53-7864Ebzfizt043456269 2..1.292699.3.579.2.629315-82-2568Ruixylc210986292 2..1.888930.3.579.2.5[id number] 2..1.746520.3.579.2.[id number] 2..1.265558.3.579.2.240860-00-7933Qrkyhjp652972082 2..1.964974.3.579.2.387040-04-4213Tvjzxtq078429617 2..1.169419.3.579.2.378250-14-6733Awmkprx758664295 2..1.494661.3.579.2.255050-95-4483Vblrwue23722325 2..1.322756.3.579.2.345336-93-3846Dnrhcob8166309 2..1.569741.3.579.2.164470-70-4147Rfhnojc6296504 2..1.887398.3.579.2.485229-61-6373Ajuqpae34661679385-62-0646Ylaehgl [id number] 74az8b1j-0e57-61rm-6d8u-7d5x65a1s49iVwgjodz HKH20808893Z t224d96b-3lm5-4mf9-r3b0-[id number] 2..1.119604.30Kdmppxi70063835 2..1.3[id number] 2.16.840.1.6[id number] [id number] Social History DateTypeDetailFacilityUnknown if ever smokedMercy Health St. [facility] Work Phone: Start: 02-07-2024 End: 39-23-3722Ufg Assigned At [facility] [employer] Other Start: 08-17-2021 End: 54-80-7070Fcofibb smoking status NHISNever smoked tobacco (finding) [facility]art: 47-50-4264[facility]: 02-06-2024 End: 52-33-6529Nxegmrr use and exposureSmokeless tobacco non-userNOMS Healthcare Start: 02-07-2024 End: 09-92-9402Qmalfvean beverage intakeEx-drinker (finding)[facility] Start: 02-07-2024 End: 21-86-2321Tpalkcm of Social functionNOMS HealthcareStart: 55-69-6688Nxf assigned at birthNot on fileNOMS HealthcareStart: 01-28-2015 End: 92-00-1684VggTqptiy (finding)[facility] Columbustart: 03-22-2021 End: 44-04-1213Ocwybaymu beverage intakeCurrent non-drinker of alcohol (finding) [facility] SystemStart: 21-70-3208FuakpbtmaRnymsnnMrtFxelau Health System Start: 04-07-2025 End: 96-20-6811Alylxfs smoking status NHISCurrent some day smokerHCA Florida Bayonet Point HospitalNEGATED: Highlighted rowKeenan Private Hospital Clinical Notes 02-10-2021 to 05-07-2025 Note Date & [id number] History of Present illness Narrative* Deysi Mercado [...] nursing note reviewed. Exam conducted with a technical sales support manager present. Vitals: Estimated body mass index is [...] of: David Villeda DO documented in this encounterMercy Hospital [id number] History of Present illness Narrative* Argentina Richter [...] both accurate and complete. documented in this [facility]10-13-2025 Instructions* Patient Instructions* Lavinia Washington - 04/07/2025 2:15 PM EDT - MRI reviewed in office today from 03/16/2025 which was unremarkable. - Start topamax as prescribed. - Follow up in 1-2 months. documented in this encounterOhioHealth Dublin Methodist Hospital10-09-2025 Hospital Discharge instructionsAmbulatory Orders* Referral to Cardiology Time Frame: 04/03/25, Location: None [facility] Work Phone: 1(863) 732-429010-02-2025 History of Present illness Narrative* Trice Ramírez APRN-KEITH - 03/27/2025 3:30 PM EDT Annual Well Woman Visit 03/27/2025 Subjective Nati Santos is a pleasant 39 y.o. female new patient who presents for annual outreach liaison exam. Periods are irregular, lasting several days. Dysmenorrhea: severe, occurring first 1-2 days of flow. Cyclic symptoms include heavy bleeding, clots,cramping and moodiness. Denies abnormal discharge. Denies pelvic pain. Patient declines STD testing today. She is seeing oncology / hematology in [place] for chronic anemia and they think it is related to patient's frequent / heavy periods. She has not had a pelvic ultrasound. Complaints today: patient is experiencing irregular menses. Relationship status: The patient reports that there is not domestic violence in her life. 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 LMP 01/25/2025 OB History 1 [...] Follow up in 1 year for annual outreach liaison exam. Follow up as needed. Await pap. Discussed ASCCP screening guidelines. Discussed taking a multivitamin. Discussed Calcium and Vitamin D for prevention of osteoporosis. HPV vaccine is recommended between 9-45 yo. Can be received at [facility] or the [facility] department. Discussed need for yearly mammogram after 40 yo. Discussed colon cancer screening recommendations to begin at 45 yo, patient to discuss with PCP. All questions answered. MARKOS Avendaño APRN-CNP Lisa M Krotzer, APRN-CNP 03/27/25 1624 documented in this encounterCherrington HospitalSolar & Environmental Technologies [id number] Hospital Discharge instructionsAmbulatory Orders* Referral to Gastroenterology Time Frame: 03/07/25, Location: None [facility] Work Phone: 1(457) 150-855408-26-2025 Miscellaneous Notes* Telephone Encounter - Regla Le [...] to us if she needed anything else. Padlet [id number] History of Present illness Narrative* Argentina Richter [...] control drugs) and increase blood sugar levels. HruwtgwN04 5000mcgSublingual(underthetongue)daily Vitamin B2 (Riboflavin) 200mg Twice Daily [...] with aspirin. Must taper off. 5-HTP (HydrLoxytryptophan) [id number] daily. Avoid in , liver or kidney disease. Interactions with medications such as carbidopa , triptans, barbiturates, chemotherapy drugs, antibiotics, tramadol. - I would also like her to continue following with neurology for evaluation of headaches. A preventative medication may be beneficial. - [facility] to further evaluate any abnormal pathology that [...] [facility] - [place], [place] Meniere's disease of right ear - [facility] - [place], [place] - Ambulatory referral to [facility]; [...] both accurate and complete. documented in this encounterCherrington HospitalFoodzie Mackinac Straits [id number] Instructions* Patient Instructions* Milind Alvarado - 02/11/2025 [...] control drugs) and increase blood sugar levels. YcuvttcR20 5000mcgSublingual(underthetongue)daily Vitamin B2 (Riboflavin) 200mg Twice Daily [...] with aspirin. Must taper off. 5-HTP (HydrLoxytryptophan) [id number] daily. Avoid in , liver or kidney disease. Interactions with medications such as carbidopa , triptans, barbiturates, chemotherapy drugs, antibiotics, tramadol. - I would also like her to continue following with neurology for evaluation of headaches. A preventative medication may be beneficial. - I will order an [facility] to further evaluate any abnormal pathology that [...] Asymmetry noted: No Reliability: good Speech Audiometry: SRT/DIRECTOR MEDICAL ECONOMICS in good agreement WRS: Right Ear: Excellent (100%) Left Ear: Excellent (100%) RECOMMENDATIONS: Follow up with Dr. Argentina Richter Retest hearing should she note changes in her audiologic symptoms Blas Garrido, [facility]-A Leather Etcher documented in this encounterOhioHealth Dublin Methodist Hospital08-18-2025 [...] deficiency anemiaacuteSept2024 9:25amDyspnea on exertionacuteOctober 2024 1:45pm [facility] Work Phone: 1(387) 555-858708-18-2025 Evaluation note* Diagnosis Onset Date Resolution Status [...] 9:25amBPV (benign positional vertigo)acuteOctober 2024 1:45pmDyspnea on exertionacuteOctlexington va medical center 2024 1:45pmGeneralized anxiety disorderacuteOctlexington va medical center 2024 1:45pmGERD (gastroesophageal reflux disease)acuteOctlexington va medical center 2024 1:45pmMenieres diseaseacuteOctlexington va medical center 2024 1:45pmMorbid obesity with body mass index (BMI) of 50.0 to 59.9 in adultacuteOctlexington va medical center 2024 1:45pmAnemiainactive April 03, 2025 1:45pmAbnormal weight gainacuteOctlexington va medical center 2024 10:38amBMI 60.0-69.9, adultacuteOctlexington va medical center 2024 10:38amClass 3 severe obesity with body mass index (BMI) of 60.0 to 69.9 in [facility] 10:38am DepressionacuteOctlexington va medical center 2024 10:38amDietary surveillance and counseling acuteSelect [facility] 20[facility] 10:38amExercise counselingacuteOctlexington va medical center 2024 10:38amGeneralized anxiety disorderacuteOctlexington va medical center 2024 10:38amGERD (gastroesophageal reflux disease)acuteOctober 2024 10:38amGlaucomaacute April 07, 2025 10:38amHistory of kidney stonesacuteOctlexington va medical center 2024 10:38amHypertensionacuteOctlexington va medical center 2024 10:38amIron deficiency anemiaacute April 07, 2025 10:38amMenieres diseaseacuteOctlexington va medical center 2024 10:38amOSA on CPAPacuteMarlexington va medical center 2024 10:38amType II diabetes mellitusacuteOctober 2024 10:38am [facility] Work Phone: 1(169) 727-426108-18-2025 Evaluation note* Diagnosis Onset Date Resolution Status [...] 10:38am DepressionacuteOctober 2024 10:38amDietary surveillance and counseling acuteOctlexington va medical center 2024 10:38amExercise counselingacuteOctlexington va medical center 2024 10:38amGeneralized anxiety disorderacuteOctober 2024 10:38amGERD (gastroesophageal reflux disease)acuteOctober 2024 10:38amGlaucomaacute April 07, 2025 10:38amHistory of kidney stonesacuteOctober 2024 10:38amHypertensionacuteOctlexington va medical center 2024 10:38amIron deficiency anemiaacute April 07, 2025 10:38amMenieres diseaseacuteOctober 2024 10:38amOSA on CPAPacuteOctlexington va medical center 2024 10:38amType II diabetes mellitusacuteOctober 2024 10:38amHypertensionacuteOctober 2024 8:55amIron deficiency anemia acuteOctober 2024 8:55amOSA on CPAPacuteOctober 2024 8:55amType II diabetes mellitusacuteOctober 2024 8:55amBMI 50.0-59.9, adultnoneactive April 23, 2025 8:55am [facility] Work Phone: 1(618) 358-348508-18-2025 Evaluation note* Diagnosis Onset Date Resolution Status Admit Date Anemia inactiveAugust 2024 9:43amActive cochlear Meniere disease of right ear acuteAugust 2024 9:03amHypertensionacuteAugust 2024 9:03amOSA on CPAPacuteAugust 2024 9:03amType II diabetes mellitusacuteAugust 2024 9:03amBMI 50.0-59.9, adultnoneactiveAugust 2024 9:03amBPV (benign positional vertigo)acuteSeptember 2024 2:16pmMenieres diseaseacuteSeptember 2024 2:16pmMorbid obesity with body mass index (BMI) of 50.0 to 59.9 in adultacuteSeptbanner 2024 2:16pmBPV (benign positional vertigo)acute March 07, 2025 1:44pmGeneralized anxiety disorderacuteSept2024 1:44pmMenieres diseaseacutept2024 1:44pmMorbid obesity with body mass index (BMI) of 50.0 to 59.9 in adultacuteSeptbanner 2024 1:44pmAnemia inactiveSept2024 1:44pmIron deficiency anemiaacuteSept2024 9:25amBPV (benign positional vertigo)acuteOctober 2024 1:45pmDyspnea on exertionacuteOctlexington va [facility] center 2024 1:45pmGeneralized anxiety disorderacuteOctlexington va [facility] 2024 1:45pmGERD (gastroesophageal reflux disease)acuteOctlexington va medical center 2024 1:45pmMenieres diseaseacuteOctlexington va medical center 2024 1:45pmMorbid obesity with body mass index (BMI) of 50.0 to 59.9 in adultacuteOctlexington va medical center 2024 1:45pmAnemiainactive April 03, 2025 1:45pmAbnormal weight gainacuteOctlexington va medical center 2024 10:38amBMI 60.0-69.9, adultacuteOctlexington va medical center 2024 10:38amClass 3 severe obesity with body mass index (BMI) of 60.0 to 69.9 in adultmemorial hospitalOctlexington va medical [facility] 2024 10:38am DepressionacuteOctlexington va medical center 2024 10:38amDietary surveillance and counseling acuteOctlexington va medical center 2024 10:38amExercise counselingacuteOctlexington va [facility] 2024 10:38amGeneralized anxiety disorderacuteOctlex[facility] va [facility] 2024 10:38amGERD (gastroesophageal reflux disease)acuteOctober 2024 10:38amGlaucomaacute April 07, 2025 10:38amHistory of kidney stonesacuteOctlexington va medical center 2024 10:38amHypertensionacuteOctlexington va medical center 2024 10:38amIron deficiency anemiaacute April 07, 2025 [...] CPAPacuteNovember 2024 1:01pmType II diabetes mellitusacuteNov2024 1:01pm [facility] Work Phone: 1(157) 173-725307-02-2025 Evaluation note* Diagnosis Onset Date Resolution Status Admit Date Diarrhea in adult patient acuteJuly 2024 11:03am [facility] Work Phone: 1(711) 812-953507-02-2025 Evaluation note* Diagnosis Onset Date Resolution Status Admit Date Diarrhea in adult patient acuteJuly 2024 11:03amAnemiaacuteAugust 2024 9:43am [facility] Work Phone: 1(520) 478-489307-02-2025 Evaluation note* Diagnosis Onset Date Resolution Status Admit Date Diarrhea in adult patient acuteJuly 2024 11:03amAnemiaacuteAugust 2024 9:43amActive cochlear Meniere disease of right earacuteAugust 2024 9:03amHypertensionacuteAugust 2024 9:03amOSA on CPAPacuteAugust 2024 9:03amType II diabetes mellitusacuteAugust 2024 9:03amBMI 50.0-59.9, adultnoneactiveAugust 2024 9:03am [facility] Work Phone: 1(117) 208-425807-02-2025 Evaluation note* Diagnosis Onset Date Resolution Status [...] in adultacuteSept2024 2:16pmAnemiaacute March 07, 2025 1:44pm [facility] Work Phone: 1(101) 400-200307-02-2025 Evaluation note* Diagnosis Onset Date Resolution Status [...] 2025 1:44pmIron deficiency anemiaacuteSept2024 9:25am [facility] Work Phone: 1(618) 709-812904-15-2025 History of Present illness Narrative* Liam H [...] 02/06/2024 BRANDON (obstructive sleep apnea) 02/06/2024 Hypertension ([facility]) 02/06/2024 KAE (generalized anxiety disorder) ([facility]) 02/06/2024 Ovarian cyst 04/04/2024 Resolved Ambulatory Problems Diagnosis Date Noted Cat scratch 02/06/2024 Gastroenteritis 02/06/2024 Nausea 02/06/2024 Past Medical History: Diagnosis Date Anxiety Depression ([facility]) Diabetes 1.5, managed as type 2 ([facility]) ([facility]) Dizziness Past Surgical History: Procedure Laterality [...] meds. I will arrange for an outpatient satellite project site monitor consult for a 1700mg/d low sodium diet. Once pt has followed the diet for 6 weeks she will F/U with us. documented in this encounterMercy Hospital [id number] Evaluation note* Diagnosis Onset Date Resolution Status Admit Date BPV (benign positional vertigo) acuteApril 2024 11:01amGeneralized anxiety disorderacuteApril 2024 11:01amActive cochlear Meniere disease of right earacuteApril 2024 9:42am [facility] Work Phone: 1(249) 328-847302-24-2025 Evaluation note* Diagnosis Onset Date Resolution Status Admit Date BPV (benign positional vertigo) acuteFebruary 2024 2:59pmType II diabetes mellitusacuteFebruary 2024 2:59pm [facility] Work Phone: 1(132) 263-406702-24-2025 Evaluation note* Diagnosis Onset Date Resolution Status Admit Date BPV (benign positional vertigo) acuteFebruary 2024 2:59pmType II diabetes mellitusacuteFebruary 24th, 2025 2:59pmBPV (benign positional vertigo)acuteMarch 2024 8:56amGeneralized anxiety disorderacuteApril 2024 11:01am [facility] Work Phone: 1(746) 284-728302-24-2025 Evaluation note* Diagnosis Onset Date Resolution Status Admit Date BPV (benign positional vertigo) acuteFebruary 2024 2:59pmType II diabetes mellitusacuteFebruary 2024 2:59pmBPV (benign positional vertigo)acuteMarch 2024 8:56amBPV (benign positional vertigo)acuteApril 2024 11:01amGeneralized anxiety disorder acuteApril 2024 11:01am [facility] Work Phone: 1(752) 920-679602-18-2025 History of Present illness Narrative* Liam Waggoner [...] (benign positional vertigo) 02/06/2024 Bronchitis 02/06/2024 Glaucoma ([facility]) 02/06/2024 Headache 02/06/2024 Irregular menses 02/06/2024 Vertigo 02/06/2024 Type 2 diabetes mellitus ([facility]) 02/06/2024 BRANDON (obstructive sleep apnea) 02/06/2024 Hypertension ([facility]) 02/06/2024 KAE (generalized anxiety disorder) ([facility]) 02/06/2024 Ovarian cyst 04/04/2024 Resolved Ambulatory Problems Diagnosis Date Noted Cat scratch 02/06/2024 Gastroenteritis 02/06/2024 Nausea 02/06/2024 Past Medical History: Diagnosis Date Anxiety Depression ([facility]) Diabetes 1.5, managed as type 2 [...] If no help I'll check with Dr Ahuamda about stopping those meds and starting dyazide. Recommend pt continue working on migraines with Dr Zavala as it seems likely there are potentially 2 issues. documented in this [facility]02-04-2025 Telephone encounter Note* Telephone Encounter - Liam Waggoner MD - 07/30/2024 2:30 PM EST VNG reviewed and there is a RT RVR as well as central findings [facility] Work Phone: 1(262) 492-759002-04-2025 Miscellaneous Notes* Telephone Encounter - Liam Waggoner MD - 07/30/2024 2:30 PM EST VNG reviewed and there is a RT RVR as well as central findings documented in this [facility]02-03-2025 History of Present illness Narrative* Marry Hall, BRIAN - 07/29/2024 3:00 PM EST VNG Report Name: Nati Santos : 1985 Date: 07/29/2024 Referring Physician: Liam Waggoner MD History: Nati Santos, a 39 y.o. female, was seen today in the [facility] Audiology Department for VNG testing. She [...] (benign positional vertigo) 02/06/2024 Bronchitis 02/06/2024 Glaucoma ([facility]) 02/06/2024 Headache 02/06/2024 Irregular menses 02/06/2024 Vertigo 02/06/2024 Type 2 diabetes mellitus ([facility]) 02/06/2024 BRANDON (obstructive sleep apnea) 02/06/2024 Hypertension ([facility]) 02/06/2024 KAE (generalized anxiety disorder) ([facility]) 02/06/2024 Ovarian cyst 04/04/2024 Resolved Ambulatory Problems Diagnosis Date Noted Cat scratch 02/06/2024 Gastroenteritis 02/06/2024 Nausea 02/06/2024 Past Medical History: Diagnosis Date Anxiety Depression ([facility]) Diabetes 1.5, managed as type 2 ([facility]) ([facility]) Dizziness Past Surgical History: Procedure Laterality [...] is a right RVR documented in this encounterMercy Hospital [id number] Evaluation note* Diagnosis Onset Date Resolution Status Admit Date BPV (benign positional vertigo) acuteOctober 2023 10:55am [facility] Work Phone: 1(844) 936-458808-28-2024 History of Present illness Narrative* KASSANDRA Velazquez [...] Ear: Type A tympanogram documented in this encounterMercy Hospital [id number] Evaluation note* Encounter Date Diagnosis Assessment Notes [...] to continue with above medication as directed. [employer] Other 12-18-2023 Evaluation note* Encounter Date Diagnosis Assessment Notes Treatment Notes Treatment Clinical Notes May, Acute non-recurrent maxillary si nusitis (ICD-10 - J01.00) Finish already prescribed meds. Call if further needs. Pt requests tessalon for cough. [employer] Other 10-26-2023 Evaluation note* Encounter Date Diagnosis [...] understanding and is agreeable to treatment plan. [employer] Other 08-29-2023 Evaluation note* Encounter Date Diagnosis Assessment Notes Treatment Notes Treatment Clinical Notes Jan, Encounter for genera l adult medical examination without abnormal findings (ICD-10 - Z00.00) Pt just seen. This is a courtesy visit to complete paperwork for her new job. Forms completed. [employer] Other 03-14-2023 Evaluation note* Encounter Date Diagnosis Assessment Notes Treatment Notes Treatment Clinical Notes Aug, Obstructive sleep apnea (ICD-10 - G47.33) Fortunately, the patient is using and benefiting from treatment. Download was reviewed with patient, Current pressure is controlling apnea well, And we will make no changes at this time. A prescription was sent to the [facility] for new supplies throughout the year. She [...] as tolerated. We will continue to monitor. [employer] Other 10-16-2022 Evaluation note* Encounter Date Diagnosis [...] other viral communicable diseases (ICD-10 - Z20.828) [employer] Other 08-15-2022 Evaluation note* Encounter Date Diagnosis Assessment Notes Treatment Notes Treatment Clinical Notes Jan, Contact with and (alaniz spected) exposure to other viral communicable diseases (ICD-10 - Z20.828) [employer] Other 06-22-2022 NoteEntered by Vale Brown LPN on December 15, 2021 07:51:03 EDT From: Vale Brown LPN To: [facility] #[id number] Sent: 12/15/2021 07:51:03 EDT Subject: Medication Management Not Approved: Patient needs appointment venlafaxine (VENLAFAXINE ER 75MG CAPSULES) TAKE 1 CAPSULE BY MOUTH DAILY WITH FOOD Qty: 90 cap(s) Days Supply: 90 Refills: 0 Substitutions Allowed Route To Pharmacy - [facility] #[id number] Signed by Vale Brown LPN Not Approved: Patient needs appointment potassium chloride (POTASSIUM CL 10MEQ ER CAPSULES) TAKE 1 CAPSULE BY MOUTH TWICE DAILY Qty: 60 cap(s) Days Supply: 30 Refills: 0 Substitutions Allowed Route To Pharmacy - [facility] #[id number] Signed by Vale Brown LPN From: [facility] #[id number] To: Rere VARGAS, Trice Clark CNP Sent: [...] Refills: 0 Substitutions [facility]owed [id number] Note Entered by Vale Brown LPN on November 12, 2021 07:44:57 EDT From: Vale Brown LPN To: [facility] #[id number] Sent: 11/12/2021 07:44:57 EDT Subject: Medication Management Not Approved: Patient needs appointment potassium chloride (POTASSIUM CL 10MEQ ER CAPSULES) TAKE 1 CAPSULE BY MOUTH TWICE DAILY Qty: 60 cap(s) Days Supply: 30 Refills: 0 Substitutions Allowed Route To Pharmacy - [facility] #[id number] Signed by Vale Brown LPN Not Approved: Patient needs appointment metoprolol (METOPROLOL TARTRATE 50MG TABLETS) TAKE 1 TABLET BY MOUTH TWICE DAILY Qty: 180 tab(s) Days Supply: 90 Refills: 0 Substitutions Allowed Route To [id number] Signed by Vale Brown LPN From: [facility] #[id number] To: Trice Milner CNP Sent: November 12, [...] Refills: 0 Substitutions Allowed [facility] [id number] Note Entered by Vale Brown LPN on October 18, 2021 08:04:27 EDT From: Vale Brown LPN To: [facility] #[id number] Sent: 10/18/2021 08:04:27 EDT Subject: Medication Management Not Approved: Patient needs appointment venlafaxine (VENLAFAXINE ER 75MG CAPSULES) TAKE 1 CAPSULE BY MOUTH DAILY WITH FOOD Qty: 30 cap(s) Days Supply: 30 Refills: 0 Substitutions Allowed Route To Pharmacy - [facility] #[id number] Signed by Vale Brown LPN From: [facility] #[id number] To: Trice Milner CNP Sent: October 17, 2021 2:28:31 AM CDT Subject: Medication Management Due: October 18, 2021 12:13:19 AM CDT On Hold Pending Signature Dispensed Drug: venlafaxine (venlafaxine 75 mg oral capsule, extended release), TAKE 1 CAPSULE BY MOUTH DAILY WITH FOOD Quantity: 30 cap(s) Days Supply: 30 Refills: 0 Substitutions Allowed [facility] HospitalGpnnaivm86-44-8862 Note Entered by Vale Brown LPN on September 01, 2021 07:49:00 EST From: Vale Brown LPN To: [facility] #[id number] Sent: 09/01/2021 07:49:00 EST Subject: Medication Management Not Approved: Patient needs appointment potassium chloride (POTASSIUM CL 10MEQ ER CAPSULES) TAKE 1 CAPSULE BY MOUTH THREE TIMES DAILY Qty: 90 cap(s) Days Supply: 30 Refills: 0 Substitutions Allowed Route To Pharmacy - [facility] #[id number] Signed by Vale Brown LPN Not Approved: Patient needs appointment furosemide (FUROSEMIDE 40MG TABLETS) TAKE 1 TABLET BY MOUTH DAILY Qty: 30 tab(s) Days Supply: 30 Refills: 0 Substitutions Allowed Route To Pharmacy - [facility] #[id number] Signed by Vale Brown LPN From: [facility] #[id number] To: Rere VARGAS, Trice Clark CNP Sent: September 01, 2021 5:21:03 AM CAFE OPERATOR Subject: Medication Management Due: September 02, 2021 12:05:36 AM CAFE OPERATOR On Hold Pending Signature Dispensed Drug: potassium [...] Refills: 0 Substitutions Allowed [facility] [id number] Note Entered by Vale Brown LPN on July 13, 2021 07:53:07 EST From: Vale Brown LPN To: [facility] #[id number] Sent: 07/13/2021 07:53:07 EST Subject: Medication Management Not Approved: Patient needs appointment buPROPion (BUPROPION SR 150MG TABLETS (12 H)) TAKE 1 TABLET BY MOUTH TWICE DAILY Qty: 60 tab(s) Days Supply: 30 Refills: 0 Substitutions Allowed Route To Pharmacy - [facility] #[id number] Signed by Vale Brown LPN Not Approved: Patient needs appointment amLODIPine (AMLODIPINE BESYLATE 5MG TABLETS) TAKE 1 TABLET BY MOUTH EVERY DAY Qty: 30 tab(s) Days Supply: 30 Refills: 0 Substitutions Allowed Route To Pharmacy - [facility] #[id number] Signed by Vale Brown LPN From: [facility] #[id number] To: Rere VARGAS, Trice Clark CNP Sent: July 13, 2021 5:21:31 AM CAFE OPERATOR Subject: Medication Management Due: July 14, 2021 12:08:57 AM CAFE OPERATOR On Hold Pending Signature Dispensed Drug: buPROPion [...] Refills: 0 Substitutions Allowed [facility] [id number] Note Entered by Sugar Treadwell on March 25, 2021 08:02:40 EDT From: Sugar Treadwell To: [facility] #[id number] Sent: 03/25/2021 08:02:39 EDT Subject: Medication Management Submitted: Complete:buPROPion (buPROPion 150 mg/12 hours (SR) oral tablet, extended release) Signed by Sugar Treadwell 03/25/2021 08:02:00 EDT Approved buPROPion (BUPROPION SR 150MG TABLETS (12 H)) TAKE 1 TABLET BY MOUTH TWICE DAILY Qty: 60 tab(s) Days Supply: 30 Refills: 0 Substitutions Allowed Route To [facility]acy - [facility][id number] Signed by Sugar Treadwell From: [id number] To: Rere VARGAS, Trice Clark CNP Sent: March 24, 2021 5:13:26 PM CDT Subject: Medication Management Due: March 25, 2021 12:05:52 AM CDT On Hold Pending Signature Dispensed Drug: buPROPion (BuPROPion (Eqv-Wellbutrin SR) 150 mg/12 hours oral tablet, extended release), TAKE 1 TABLET BY MOUTH TWICE DAILY Quantity: 60 tab(s) Days Supply: 30 Refills: 0 Substitutions [id number] From: Estefany Beaver ([facility] ([facility])) To: Vale Brown LPN; Sent: 03/09/2021 08:37:45 EDT Subject: FW: Medication Management Due Date/Time: 03/10/2021 06:23:00 EDT From: [facility] #[id number] To: ELFEGO BETANCUR, AIDEN Clark MD Sent: [...] 03/10/2021 06:23:00 EDT From: Trice Milner To: [facility] #[id number] Sent: 03/09/2021 14:44:31 EDT Subject: FW: Medication Management Not Approved: New prescription sent separately under my name buPROPion (BUPROPION SR 150MG TABLETS (12 H)) TAKE 1 TABLET BY MOUTH TWICE DAILY Qty: 60 tab(s) Days Supply: 30 Refills: 0 Substitutions Allowed Route To Pharmacy - [facility] #[id number] Signed by Trice Milner [facility]08-18-2021 Note From: Vale Brown LPN ([facility] [place] To: Trice Milner; Sent: 02/09/2021 13:49:55 EDT Subject: FW: Medication Management Due Date/Time: 02/10/2021 13:24:00 EDT From: [facility] #[id number] To: Trice Milner ENROLLMENT MANAGEMENT MANAGER Sent: February 09, 2021 12:24:45 PM CDT Subject: Medication Management Due: February 10, 2021 9:36:46 AM CDT On Hold Pending Signature Dispensed Drug: furosemide (furosemide 40 mg oral tablet), TAKE 1 TABLET BY MOUTH DAILY Quantity: 14 tab(s) Days Supply: 14 Refills: 0 Substitutions Allowed Notes from Pharmacy: From: Trice Milner To: [facility] #[id number] Sent: 02/09/2021 20:17:24 EDT Subject: FW: Medication Management Not Approved: have patient call office furosemide (FUROSEMIDE 40MG TABLETS) TAKE 1 TABLET BY MOUTH DAILY Qty: 14 tab(s) Days Supply: 14 Refills: 0 Substitutions Allowed Route To Pharmacy - [id number] From: Trice Milner To: Rere [facility] ([facility]); Sent: 02/09/2021 20:17:49 EDT Subject: RE: Medication Management Asked patient to call back -not sure that I am going to keep her on 40 mg of Lasix at this point [facility] noteNo InformationNort [employer] Other Evaluation noteNo assessment information available [facility] Work Phone: Evaluation note* Diagnosis Onset Date Resolution Status Anemia acuteGlaucomaacuteType II [facility] note* Diagnosis Onset Date Resolution Status Anemia acuteGastroenteritisacuteGlaucomaacuteType II diabetes mellitus[facility] Work Phone: Evaluation note* Diagnosis Onset Date Resolution Status Anemia acuteGastroenteritisacuteGlaucomaacuteType II diabetes mellitusacuteBPV (benign positional vertigo)[facility] Work Phone: Evaluation note* Diagnosis Onset Date Resolution Status Anemia acuteGastroenteritisacuteGlaucomaacuteType II diabetes mellitusacuteBPV (benign positional vertigo)acuteBPV (benign positional vertigo)acuteNauseaacuteBPV (benign positional vertigo)acuteHeadacheacuteNauseaacuteVisual changesacute [facility] Work Phone: Evaluation note* Diagnosis Onset Date Resolution Status [facility]ache [facility] Work Phone: Evaluation note* Diagnosis Sensorineural hearing loss (SNHL) of right ear with unrestricted hearing of left ear- Primary Dizziness and giddiness Migraine without status migrainosus, not intractable, unspecified migraine type (CMS/HCC) documented in this encounter [facility]* Diagnosis Sensorineural hearing loss (SNHL) of both ears- Primary Vertigo Dizziness and giddiness documented in this encounter [facility] HealthcareEvaluation note* Diagnosis Dizziness and giddiness- Primary [facility] Diagnosis Peripheral vestibulopathy of right ear- Primary Migrainous dizziness Active cochlear Meniere disease of right ear documented in this encounter [facility] HealthcareEvaluation note* Diagnosis Active cochlear Meniere disease of right ear- Primary documented in this encounter [facility] HealthcareEvaluation note* Diagnosis Dizziness- Primary Dizziness and giddiness Fullness in ear, bilateral Tinnitus of both ears Unspecified tinnitus documented [facility]* Diagnosis Benign paroxysmal vertigo of right ear- Primary Meniere's disease of right ear Dizziness Dizziness and giddiness Fullness in ear, bilateral Sleep apnea treated with continuous positive airway pressure (CPAP) Meniere's disease of right ear Dizziness Dizziness and giddiness documented [facility]* Diagnosis Well woman exam [...] neoplasm of breast documented [facility]* Diagnosis Benign paroxysmal vertigo of right ear- Primary Meniere's disease of right ear Dizziness Dizziness and giddiness Fullness in ear, bilateral [facility]* Diagnosis Menorrhagia with regular cycle documented [facility] encounter [facility] Narrative - Reported* Type Description Date Medical History hypertension Medical HistoryOSA. hypertensionMedical HistoryOSAMedical HistoryObesityMedical HistorydiabetesMedical HistoryLower extremity edemaSurgical Historycarpal tunnel [id number] [facility] [employer] Other Hislwwb general Narrative - Reported* Type Description Date Medical History hypertension Medical HistoryOSAMedical HistoryObesityMedical HistorydiabetesMedical History Lower extremity edemaSurgical Historycarpal tunnel [id number] [facility] [employer] Other Hospital Discharge instructionsAmbulatory Orders* Referral to ENT Time Frame: 12/11/23, Location: None [facility] Work Phone: Hospital Discharge instructionsAmbulatory Orders* Referral to Psychiatry Time Frame: 10/03/24, Location: None [facility] Work Phone: Hospital Discharge instructionsAmbulatory Orders* Referral to Hematology Time Frame: 02/10/25, Location: None [facility] Work Phone: InstructionsNot on filedocumented in this encounter [facility]ructionsNot on filedocumented in this encounter [facility] SystemInstructionsNot on filedocumented in this encounter [facility]* Attachments The following attachments cannot be sent through Care Everywhere. * Calcium and vitamin D for bone health (Spanish) * Mammogram (Spanish) * Deciding to have a hysterectomy (Spanish) * Endometrial ablation (Spanish) documented in this encounter[facility] SystemReason for referral (narrative)No reason for referral information availableMer[facility] St[facility] Work Phone: Summary Purpose Family History [...] Amb Documentation February 07, 2025 8: 23am Vertigo/[facility] f/u February 10, 2025 9: 43am [...] 2025 9 :03am B[facility]ign [facility] Menieres disease February 25, 2025 2:16pm Morbid obesity with body mas s index (BMI) of 50.0 to 59.9 in adult February 25, 2025 2:16pm Anemia March 07, 2025 1:44pm BPV (benign positional vertigo) [facility] 1:[facility] Generalized anxiety disorder February 242024 [...] DR. AHUMADA FOR IRON DEF ANEMIA [facility] 9:25am r11.0 March 15, 2025 8:06am Dizziness/Return to Work April 03 1:[facility]pm [facility] April 07, 2025 1 0:38am Reason for Visit Admit Date Anemia February 10, 2025 9: 43am Active cochlear Meniere disease of right ear February 20, 2025 9:03am Hypertension February 20, 2025 9: 03am BRANDON on CPAP February 20, 2025 9: 03am Type II diabetes mellitus February 20, 025 9:03am BMI 50.0-59.9, adult February 20, 2025 9 :03am BPV (benign positional vertigo) [facility] Menieres disease February 25, 2025 2:16pm Morbid obesity with body mas s index (BMI) of 50.0 to 59.9 in adult February 25, 2025 2:16pm BPV (benign positional vertigo) [facility] 2024 1:44pm Generalized anxiety disorder February [...] ER f/u February 10, 2025 9: 43am rbandon February 20, 2025 9: 03am ENT f/u February 25, 2025 2:16pm Discuss Oncology Visit March 07 025 1:44pm REF BY DR. AHUMADA FOR IRON DEF ANEMIA Feb 9:25am r11.0 March 15, 2025 8:06am Dizziness/Return to Work April 03 1:45pm [facility] ([facility]) April 07, 2025 1 0:38am brandon/ [...] 8:06am Dizziness/Return to Work April 03 1:45pm [facility] ([facility] April 07, 2025 1 0:38am brandon/ [...] 2025 9 :03am BPV (benign positional vertigo) [facility] 2:16[facility] Menieres disease February 25, 2025 2:16pm Morbid obesity with body mas s index (BMI) of 50.0 to 59.9 in adult February 25, 2025 2:16pm BPV (benign positional vertigo) [facility] 1:44pm Generalized anxiety disorder February 242024 [...] Amb Documentation February 07, 2025 8: 23am Vertigo/[facility] f/u February 10, 2025 9: 43am brandon February 20, 2025 9: 03am ENT f/u February 25, 2025 2:16pm Discuss Oncology Visit March 07 1:44pm REF BY DR. AHUMADA FOR IRON DEF ANEMIA Sep 2024 9:25am r11.0 March 15, 2025 8:06am Dizziness/Return to Work April 03 1:45pm [facility] ([facility]) April 07, 2025 1 0:38am brandon/ [...] 25, 2025 2:16pm BPV (benign positional vertigo) [facility] 1:[facility] Generalized anxiety disorder February 242024 [...] section and content) DATE CREATED AUTHOR 07/12/2021 [facility] DATE CREATED AUTHOR AUTHOR'S ORGANIZ ATION 12/15/2021 [facility] DATE CREATED AUTHOR AUTHOR'S ORGANIZ ATION 03/29/2022 [facility] DATE CREATED AUTHOR AUTHOR'S ORGANIZ ATION 07/31/2024 [facility] DATE CREATED AUTHOR AUTHOR'S ORGANIZ ATION 03/19/2025 [facility] DATE CREATED AUTHOR AUTHOR'S ORGANIZ ATION 04/08/2025 [facility] DATE CREATED AUTHOR AUTHOR'S ORGANIZ ATION 04/17/2025 [facility] DATE CREATED AUTHOR AUTHOR'S ORGANIZ ATION 05/08/2025 [facility] EPIC REASON FOR VISIT (unrecogniz ed section and content) ReasonCommentsVertigoAudio 02/21/24ReasonCommentsDizzinessSpecialtyDiagnoses / ProceduresReferred By ContactReferred To Contact Diagnoses Dizziness and giddiness Procedures Videonystagmography (Audiology) Liam Waggoner MD [address] [place] [address] Phone: tel: fax: Referral IDStatusReasonStart DateExpiration DateVisits RequestedVisits [id number] [id number] Loss Follow up [facility] 07/29/24ReasonCommentsEar Problem6 week low sodiumReasonComments Meniere'sDizzinessSpecialtyDiagnoses / ProceduresReferred By ContactReferred To ContactOtolaryngology Diagnoses Meniere's disease of right ear Benign paroxysmal vertigo of right ear April Ahumada MD [address] [place] [address] Phone: tel: fax: Dominique Pond MD [address] [address] Phone: tel: fax: Referral IDStatusReasonStart DateExpiration DateVisits RequestedVisits [id number] Review Specialty Services Required /[id number] YrwbPodjqzmuOirkqivi88/26/2025ReasonComments Gynecologic ExamPatient presents for their annual well woman exam.ReasonComments Follow-upReasonCommentsMenorrhagia Care Teams (unrecognized sec tion and content) Team Status: Active Member Role Status Dates April Ahumada MD Primary Care Provider Active Team Status: Inactive Member Role Status Dates April Ahumada MD Primary Care Provider Active Start: December 25, 2024 End: December 25, 2024Keiht Delcid ProviderActiveStart: December 25, 2024 End: December [...] Attending Provider Active Adry Crockett MD RESReferring ProviderActiveSerdanville state hospital Family HealthPrimary Care ProviderActive Team Status: [...] MemberRelationshipSpecialtyStart DateEnd Date April Ahumada MD [address] [place] [phone] PCP - GeneralFamily Medicine12/13/23Team MemberRelationshipSpecialtyStart DateEnd Date April Ahumada MD [address] [place] [phone] PCP - GeneralFamily Medicine12/13/23 Team Status: Inactive Member Role Status Dates April Ahumada MD Primary Care Provide r, Attending Provider Active Start: May 13, 2024 End: May 13, 2024Team MemberRelationshipSpecialtyStart DateEnd Date April Ahumada MD [address] [place] [phone] PCP - GeneralFamily Medicine12/13/23Team MemberRelationshipSpecialtyStart DateEnd Date April Ahumada MD [address] [place] [phone] PCP - GeneralFamily Medicine12/13/23Team MemberRelationshipSpecialtyStart DateEnd Date April Ahumada MD [address] [place] [address] PCP - GeneralFamily Medicine06/30/23Team MemberRelationshipSpecialtyStart DateEnd Date April Ahumada MD [address] [place] [phone] [facility] - [facility]12/13/23Team MemberRelationshipSpecialtyStart DateEnd Date April Ahumada MD [address] [place] [facility] [phone] PCP - [facility] Medicine12/13/23 Team Status: Inactive Member Role [...] DateEnd Date April Ahumada MD [address] [place] [facility] [phone] [facility] - [facility]10/08/24Team MemberRelationshipSpecialtyStart DateEnd Date April Ahumada MD [address] [place] [facility] [phone] PCP - [facility] Medicine10/08/24 Team Status: Inactive Member Role [...] 2024Team MemberRelationshipSpecialtyStart DateEnd Date April Ahumada MD [address] [place], [place] [phone] PCP - GeneralFamily Medicine06/30/23Team MemberRelationshipSpecialtyStart DateEnd Date April Ahumada MD [address] [place], [place] [phone] PCP - GeneralFamily Medicine06/30/23Team MemberRelationshipSpecialtyStart DateEnd Date April Ahumada MD [address] [place] [address] PCP - GeneralFamily Medicine06/30/23 Team Status: Inactive [...] 2025Team MemberRelationshipSpecialtyStart DateEnd Date April Ahumada MD [address] [place], [place] [phone] PCP - [facility]03/03/25 Team Status: Inactive Member Role Status [...] 2025Team MemberRelationshipSpecialtyStart DateEnd Date April Ahumada MD [address] [place] [address] [facility]03/03/25 Team Status: Active Member Role/Relationship Status [...] MemberRelationshipSpecialtyStart DateEnd Date April Ahumada MD [address] [place] [address] PCP - [facility] Medicine10/08/24Team MemberRelationshipSpecialtyStart DateEnd Date April Ahumada MD [address] [place] [address] PCP - GeneralFamily Medicine10/08/24 Goals (unrecognized section [...] BE BASED ON THE PRIMARY CLINICAL RECORDS. [facility]. provides no warranty or guarantee of the accuracy or completeness of information in this document.
== END 2025-06-11 13:14 | disposition home or self-care (01) ==
LOC: LAB 13:13
PROVIDERS: PCP Family Medicine; Visit Provider Obstetrics & Gynecology
DX: N92.0 Excessive and frequent menstruation with regular cycle (principal); N93.9 Abnormal uterine and vaginal bleeding, unspecified; R10.20 Pelvic and perineal pain unspecified side
CPT/HCPCS: 88305

== ENCOUNTER 2025-06-23 13:05 | Outpatient (RCR) | payer MEDICAID, SELFPAY ==
[2025-06-23 13:10] VITALS: BP 160/73; PULSE 67; TEMP 36.4; O2SAT 94
== END 2025-06-25 23:59 | disposition home or self-care (01) ==
LOC: HEMC 13:05
PROVIDERS: PCP Family Medicine; Visit Provider Internal Medicine Hematology & Oncology
DX: D50.9 Iron deficiency anemia, unspecified (principal); D64.9 Anemia, unspecified; K90.9 Intestinal malabsorption, unspecified; G47.30 Sleep apnea, unspecified; N92.0 Excessive and frequent menstruation with regular cycle; R53.83 Other fatigue
CPT/HCPCS: 96365; G0463; Q0138

== ENCOUNTER 2025-06-24 08:56 | Outpatient (OUT) | payer MEDICAID, SELFPAY ==
--- OUTSIDE RECORDS SUMMARY | 2025-03-04 08:00 | XMS_ITS ---
Author Organization [facility] in [place] Address [address] [place] [address] Care Team Providers Care Under Trimmer Name Role Phone Evelina Mera MD Primary Care Provider Unavailab Ely Jack Unavailable [phone] REASON FOR VISIT New PT Hem Encounters Encounter Location Date Provider Diagnosis [facility] [address] [place] [phone] 03/04/2025 Ely Tamayo Plan Of Treatment No Information Progress Notes * TUCKER Nati KDOB: [birth year] (40 yo F)Acc No.[id number]:03/04/2025 UNLOCKED PROGRESS NOTE Progress Notes Patient: Mariah RENO Amanda Surendra :?Ely Dodge M.D.:1985???Age:39 Y ???Sex:FemaleDate:03/04/2025Phone:[phone]:[address] [place], [place] [phone]:Evelina Mera MD Subjective: * Chief Complaints: * 1 . New PT Hem. * Medical History: Objective: * Vitals: Assessment: Plan: * Treatment: * * Electronic signature of Ely Tamayo MD, [id number] on 06/24/2025 at 08:59 AM ESTSign off status: PendingVisit Status:?CONFSMS (Voice) * Provider: Amber Dodge M.D. Date: 0 03/04/2025 Generated for Printing/Faxing/eTransmitting on:?06/24/2025 08:59 AM EST
--- OUTSIDE RECORDS SUMMARY | 2025-03-14 06:00 | XMS_ITS ---
Author Organization The [facility] in [place] Address [address] [place] [address] Care Team Providers Care Production Assembler Name Role Phone Evelina Mera MD Primary Care Provider Unavailab Ely Jack Unavailable [phone] REASON FOR VISIT CL1 Encounters Encounter Location Date Provider Diagnosis [facility] [address] [place] [address] 03/14/2025 Ely Tamayo Plan Of Treatment No Information Progress Notes * Nati FOSTER KDOB: [birth year] (40 yo F)Acc No.[id number]:03/14/2025 UNLOCKED PROGRESS NOTE Progress Note Patient: Mariah RENO Amanda Surendra :?Ely Dodge M.D.:1985???Age:39 Y ???Sex:FemaleDate:03/14/2025Phone:[phone]:[address] [place] [phone]:Evelina Mera MD Subjective: * Chief Complaints: * 1 . CL1. * Medical History: Objective: * Vitals: Assessment: Plan: * Treatment: * * Electronic signature of Ely Tamayo MD, [id number] on 06/24/2025 at 08:59 AM ESTSign off status: PendingVisit Status:?PEN (Pending) * Provider: Amber Dodge M.D. Date: 0 03/14/2025 Generated for Printing/Faxing/eTransmitting on:?06/24/2025 08:59 AM EST
--- OUTSIDE RECORDS SUMMARY | 2025-03-21 06:00 | XMS_ITS ---
Author Organization [facility] in [place] Address [address] [place] [address] Care Team Providers Care Brim Buster Name Role Phone Ede BETANCUR, Evelina Primary Care Provider Unavailab ALEXANDER Sutton Unavailable [phone] REASON FOR VISIT Ferumoxytol (Feraheme -Non-ESRD) Encounters Encounter Location Date Provider Diagnosis [facility] [address] [place] [phone] 03/21/2025 ALEXANDER GARCIA Plan Of Treatment No Information Progress Notes * Nati FOSTER KDOB: [birth year] (40 yo F)Acc No.[id number]:03/21/2025 UNLOCKED PROGRESS NOTE Progress Note Patient: Nati MARTINI :?ALEXANDER GARCIA M.D.:1985???Age:39 Y ???Sex:FemaleDate:03/21/2025Phone:[phone]:[address] [place], [place] [phone]:Evelina Mera MD Subjective: * Chief Complaints: * 1 . Ferumoxytol (Feraheme -Non-ESRD). * Medical History: Objective: * Vitals: Assessment: Plan: * Treatment: * * Electronic signature of ALEXANDER GARCIA MD on 06/24/2025 at 08:59 AM ESTSign off status: PendingVisit Status:?PEN (Pending) * Provider: Amber GARCIA M.D. Date: 0 03/21/2025 Generated for Printing/Faxing/eTransmitting on:?06/24/2025 08:59 AM EST
--- OUTSIDE RECORDS SUMMARY | 2025-04-01 06:30 | XMS_ITS ---
Author Organization [facility] in [place] Address [address] [place] [address] Care Team Providers Care Retail Director Name Role Phone Ede BETANCUR, Evelina Primary Care Provider Unavailab Ely Jack Unavailable [phone] REASON FOR VISIT MD Encounters Encounter Location Date Provider Diagnosis [facility] [address] [place] [address] 04/01/2025 Ely Tamayo Plan Of Treatment No Information Progress Notes * Nati FOSTER KDOB: [birth year] (40 yo F)Acc No.[id number]:04/01/2025 UNLOCKED PROGRESS NOTE Progress Notes Patient: Nati MARTINI :?Ely Dodge M.D.:1985???Age:39 Y ???Sex:FemaleDate:04/01/2025Phone:[phone]:[address] [place], [place] [phone]:Evelina Mera MD Subjective: * Chief Complaints: * 1 . MD. * Medical History: Objective: * Vitals: Assessment: Plan: * Treatment: * * Electronic signature of Ely Tamayo MD, [id number] on 06/24/2025 at 08:59 AM ESTSign off status: PendingVisit Status:?CANC (Cancelled) * Provider: Amber Dodge M.D. Date: Generated for Printing/Faxing/eTransmitting on:?06/24/2025 08:59 AM EST
--- OUTSIDE RECORDS SUMMARY | 2025-04-22 09:00 | XMS_ITS ---
Author Organization The [facility] in [place] Address [address] [place] [address] Care Team Providers Care Local Superintendent Name Role Phone Ede BETANCUR, Evelina Primary Care Provider Unavailab Eyl Jack Unavailable [phone] REASON FOR VISIT MD Encounters Encounter Location Date Provider Diagnosis [facility] [address] [place] [address] 04/22/2025 Ely Tamayo Plan Of Treatment No Information Progress Notes * Nati FOSTER KDOB: [birth year] (40 yo F)Acc No.[id number]:04/22/2025 UNLOCKED PROGRESS NOTE Progress Notes Patient: Nati MARTINI :?Ely Dodge M.D.:1985???Age:39 Y ???Sex:FemaleDate:04/22/2025Phone:[phone]:[address] [place], [place] [phone]:Evelina Mera MD Subjective: * Chief Complaints: * 1 . MD. * Medical History: Objective: * Vitals: Assessment: Plan: * Treatment: * * Electronic signature of Ely Tamayo MD, [id number] on 06/24/2025 at 08:59 AM ESTSign off status: PendingVisit Status:?PEN (Pending) * Provider: Amber Dodge M.D. Date: Generated for Printing/Faxing/eTransmitting on:?06/24/2025 08:59 AM EST
--- OUTSIDE RECORDS SUMMARY | 2025-06-10 06:30 | XMS_ITS ---
Author Organization [facility] [place] Address [address] [place] [address] Care Team Providers Care Cotton Dispatcher Name Role Phone Ede BETANCUR, Evelina Primary Care Provider Unavailab Ely Jack Unavailable [phone] REASON FOR VISIT MD Encounters Encounter Location Date Provider Diagnosis [facility] [address] [place] [phone] 06/10/2025 Ely Tamayo Plan Of Treatment No Information Progress Notes * Nati FOSTER KDOB: [birth year] (40 yo F)Acc No.[id number]:06/10/2025 UNLOCKED PROGRESS NOTE Progress Notes Patient: Nati MARTINI :?Ely Dodge M.D.:1985???Age:40 Y ???Sex:FemaleDate:06/10/2025Phone:[phone]:[address] [place], [place] [phone]:Evelina Mera MD Subjective: * Chief Complaints: * 1 . MD. * Medical History: Objective: * Vitals: Assessment: Plan: * Treatment: * * Electronic signature of Ely Tamayo MD, [id number] on 06/24/2025 at 08:59 AM ESTSign off status: PendingVisit Status:?PEN (Pending) * Provider: Amber Dodge M.D. Date: 08/11/2024 Generated for Printing/Faxing/eTransmitting on:?06/24/2025 08:59 AM EST
--- OUTSIDE RECORDS SUMMARY | 2025-06-11 13:30 | XMS_ITS | Encounter Summary ---
Author Organization [facility] Address [address] [place] [address] Care Team Providers Care Director [place] [employer] Name Role Phone Evelina Mera MD Primary Care Provider [phone] Reason for Visit * ReasonCommentsPre-op VisitEndometrial Biopsy Encounter Details DateTypeDepartmentCare Team (Latest Contact Info)Gnibagkbfiq49/17/2025 1:30 PM ESTProcedure Visit [facility] [address] [facility] [place] [address] David Villeda DO [address] [place] [place], [place] [address] Pre-op examination; Menorrhagia with regular cycle; Pelvic pain in female; Abnormal uterine bleeding Social History Tobacco UseTypesPacks/DayYears UsedDateSmoking Tobacco: NeverSmokeless Tobacco: NeverAlcohol UseStandard Drinks/WeekCommentsNot Currently0 (1 standard drink = 0.6 oz pure alcohol)CommentsNoSex and Gender InformationValueDate RecordedSex Assigned at BirthNot on fileLegal ZyvWbpzbm31/15/2023 6:56 PM EDT Gender IdentityNot on fileSexual OrientationNot on filedocumented as of this encounter Last Filed Vital Signs Vital SignReadingTime TakenCommentsBlood Tojtcjul270/7406/11/2025 1:36 PM EST Pulse--Temperature--Respiratory Rate--Oxygen Saturation--Inhaled Oxygen Concentration--Gslhye094 kg (365 lb)06/11/2025 1:36 PM ESTHeight--Body Mass [...] on 07/11/[address] Villeda at [facility]. appointment. MEDICATIONS Current Outpatient Medications Medication Instructions [...] nursing note reviewed. Exam conducted with a access consultant present. Vitals: Estimated body mass index is [...] reviewed, and patient is to proceed to [facility]. Follow Up: Patient is to follow up between 1-2 weeks post op to assess proper healing and recovery from procedure. Documented by Deysi Mercado LPN on behalf of: David Villeda DO documented in this encounter Plan of Treatment Not on file documented as of this encounter Procedures Procedure NamePriorityDate/TimeAssociated DiagnosisCommentsENDOMETRIAL BIOPSY Apkyrka1706/11/2025 2:03 PM EST Menorrhagia with regular cycle Pelvic pain in female Abnormal uterine bleeding POCT , HOBOHYjbklya22/17/2025 1:48 PM EST Menorrhagia with regular cycle Pelvic pain in female Abnormal uterine bleeding PAP TEST, [id number] 12:00 AM EDTdocumented in this encounter Results [...] Location / LateralityCollection Method / VolumeCollection TimeReceived XzdiKcsut20/17/2025 1:48 PM EST Narrative Authorizing ProviderResult TypeResult [...] DateEnd Date Evelina Mera MD [address] [place] [id number] PCP - GeneralFamily Medicine10/08/24documented as of this encounter
--- OUTSIDE RECORDS SUMMARY | 2025-06-13 06:27 | XMS_ITS | Continuity of Care Document ---
Author Organization [facility] Address [address] [place] [address] Phone Care Team Providers Care Skiver Counter Name Role Phone Evelina Mera MD Primary Care Provider Adonis Ferguson APRN Attending Provider Evelina Mera MD Attending Provider Brigitte Busch DNP Attending Provider [phone] Ely Dodge MD Attending Provider Kajal Guajardo ENGINEERING TECHNICAL SPECIALIST-C Attending Provider Evelina Mera MD Referring Provider [phone] Lamberto Burgess MD Attending Provider David Villeda DO Attending Provider Ayaan Mckeon MD Attending Provider [phone] Ayaan Mckeon MD Other Provider Care Teams Patient Care Team Team Status: Active Member Role/Relationship Status Dates Evelina Mera MD Primary Care Provider Active Visit Care Team Team Status: Inactive Member Role/Relationship Status Dates Evelina Mera MD Primary Care Provider Active Start: March 15, 2025 End: March 15, 2025Nita Serranotennieves ProviderActiveStart: March 15, 2025 End: March 15, [...] 23, 2025 End: April 23ndra Guajardo , ENGINEERING TECHNICAL SPECIALIST-CAttending ProviderActiveStart: April 23, 2025 End: April 23, 2025 Visit Care Team Team Status: Inactive Member Role/Relationship Status Dates Evelina Mera MD Primary Care Provider Active Start: April 23, 2025 End: April 23ndra Guajardo , ENGINEERING TECHNICAL SPECIALIST-CAttending ProviderActiveStart: April 23, 2025 End: April 23, [...] ProviderActiveStart: May 15, 2025 End: May 15, 2025Lamberto Toña Martinending ProviderActive Start: May 15, 2025 End: May 15, 2025 Visit Care Team Team Status: Active Member Role/Relationship Status Dates Evelina Mera MD Primary Care Provider Active Start: May 30, 2025 Lamberto Toña Martinending ProviderActiveStart: May 30, 2025 Visit Care Team Team Status: Active Member Role/Relationship Status Dates Evelina Mera MD Primary Care Provider Active Start: June 03, 2025 Ely FernandoKeith silva ProviderActiveStart: June 03, 2025 Visit Care Team Team Status: Inactive Member Role/Relationship Status Dates David Villeda DO Attending Provider Active Start : June 11, 2025 End: June 11, 2025 Patient Care Team Team Status: Active Member Role/Relationship Status Dates Evelina Mera MD Primary Care Provider Active Start: June 13, 2025 Keith Tinoco ProviderActiveStart: June 13, 2025 Ayaan Mckeon MDOther ProviderActiveStart: June 13, 2025 Chief Complaint and Reason for Visit Chief Complaint Admit Date r11.0 March 15, 2025 8:06am Dizziness/Return to Work April 03 1:45pm [facility] (QDONE) April 07, 2025 1 0:38am brandon/ 2 month follow up/ new machine Octo 2024 8:55am Obstructive sleep apnea April 23 12:01pm Discuss Meds, A1C April 28, 2025 1 :01pm 6wk F/U ELAYNE April 29, 2025 1 :25pm other form of Dyspnea May 15 9:00am Amb Documentation May 30, 2025 1 1:56am Unknown June 11, 2025 1:34pm iron def anemia June 13, 2025 7:01am Reason for Visit Admit Date BPV (benign positional vertigo) April 03, 2025 [...] 2025 1:01pm GERD (gastroesophageal reflux disease) N ov2024 1:25pm Iron deficiency anemia April 29 1:25pm BMI 60.0-69.9, adult May 15, 2025 9:00am Dyspnea on exertion May 15, 2025 9:00am Essential (primary) hypertension Novembe r 20th, 2025 9:00am Iron deficiency anemia May 15 9:00am [...] of Observa tion Never smoked tobacco (finding) June 13, 2025 7:28am Observation Status Observation Response Date of Response [...] mEq tablet extended release Disc ontinued 0 .ROUTE.QCKMUCH9125Dzywd 2023 2:27pmSeptember 2023 7:39amTAKE 1 TABLET BY MOUTH THREE TIMES DAILY WITH FOODMetformin 1,000 mg ytladmZejqtzabmrow2542EV POTwice zpteq8479Zrf 2023 3:43pmFebruary 12, 2024 7:30amMetoprolol Tartrate 50 mg qemkfbIuomprbvcrhu79TQDFApngr milag3739HewNovember 21, 2023 1:03pm February 12, 2024 7:30amAtorvastatin 40 mg gtvzncOywobkvkfmuq86BGWGWaqgq784Rgz 2023 1:08pmAugust 2023 7:30amBupropion Hcl 200 mg tablet sustained- release 12 sxWsivtbjdfkmj393YZLXGeenm pywsn697WuyNovember 21, 2023 1:08pmJuly 2023 10:37amFurosemide 40 mg lvivmnZufuhoclboer18OJDEFrjoj468Hzm 2023 1:08pmNovember 2023 12:52pmSertraline 100 mg hnxijmYabpnrpxpcjo225RVTK Ujjph799ApfNovember 21, 2023 1:08pmAugust 2023 7:30amBupropion Hcl 200 mg tablet sustained-release 12 hrDiscontinued0.ROUTE.INNVLZA284Hfdq 2023 10:37am February 12, 2024 7:30amTAKE 1 TABLET BY MOUTH TWICE DAILYSumatriptan Succinate 50 mg tabletDiscontinued0.ROUTE.ZWXFHHM466ClboJanuary 18, 2024 10:37amNove2023 12:52pmTAKE 1 TABLET BY MOUTH EVERY 2 HOURS NEEDED FOR MIGRAINE HEADACHE, MAX OF 4 TABLETS IN 24 HOURSMetformin 1,000 mg tabletDiscontinued0 .ROUTE.KYVHJPX4307Vkirah2023 7:29amNovemb2023 12:52pmTAKE 1 TABLET BY MOUTH TWICE DAILYMetoprolol Tartrate 50 mg tabletDiscontinued0.ROUTE .AKDXZRB9770Xiveku 19th, 2024 7:29amNovember 2023 12:52pmTAKE 1 TABLET BY MOUTH TWICE DAILYSertraline 100 mg tabletDiscontinued0.ROUTE.KMGJXMB919BgnmrdFebruary 12, 2024 7:29amNovember 2023 12:52pmTAKE 1 TABLET BY MOUTH DAILY Atorvastatin 40 mg tabletDiscontinued0.ROUTE.QBAXGPN139Fegekz2023 7:29am May 14, 2024 12:52pmTAKE 1 TABLET BY MOUTH DAILYBupropion Hcl 200 mg tablet sustained-release 12 hrDiscontinued0.ROUTE.FDYKLKZ359Bjopwu 2023 7:29amSeptember 2023 7:45amTAKE 1 TABLET BY MOUTH TWICE DAILYPotassium Chloride 10 mEq tablet extended releaseDiscontinued0.ROUTE.KWMFPBT9957Xcznldxcd 6th, 2024 7:38amNovember 2023 12:52pmTAKE 1 TABLET BY MOUTH THREE TIMES DAILY WITH FOODBupropion Hcl 200 mg tablet sustained-release 12 hrDiscontinued0 .ROUTE.FMOEEGI866Kdjfmrymy 20th, 2024 7:45amOctober 2023 2:45pmTAKE 1 TABLET BY MOUTH TWICE DAILYBupropion Hcl 200 mg tablet sustained-release 12 hr Discontinued0.ROUTE.IZEKGCS523Veiapfa 23rd, 2024 2:45pmNovember 2023 12:52pmTAKE 1 TABLET BY MOUTH TWICE DAILYAtorvastatin 40 mg tabletDiscontinued0 .ROUTE.GGPZDNR746Drzbunqe 19th, 2024 12:50pmOctober 2024 10:29amTAKE 1 TABLET BY MOUTH DAILYBupropion Hcl 200 mg tablet sustained-release 12 hr Discontinued0.ROUTE.QSNRNBK0276Zuraxmdu 2023 12:51pmApril 2024 10:09amTAKE 1 TABLET BY MOUTH TWICE DAILYFurosemide 40 mg aayhfhOokedzotrkie97WC IHYhutk404Fdjntkyg 19th, 2024 12:51pmMay 2024 1:21pmMetformin 1,000 mg tabletDiscontinued0.ROUTE.RHTGABQ4833Eanlnrqg 2023 12:51pmFebruary 2024 3:12pmTAKE 1 TABLET BY MOUTH TWICE DAILYMetoprolol Tartrate 50 mg tablet Discontinued0.ROUTE.ARIVYTN9231Yhqljlta 2023 12:51pmFebruary 2024 3:12pmTAKE 1 TABLET BY MOUTH TWICE DAILYOndansetron 4 mg tablet,disintegrating Ckpkzoqtxgoi8ERTNK5N as needed for nausea and uwxawfzo977Tcmiaafw 2023 12:51pmAugust 2024 5:03pmPotassium Chloride 10 mEq tablet extended release Discontinued0.ROUTE.SVIRVJC2478Ytxhrdxq 2023 12:51pmJune 2024 12:45pm TAKE 1 TABLET BY MOUTH THREE TIMES DAILY WITH FOODSertraline 100 mg tablet Discontinued0.ROUTE.BJYUJSB603Vgcmbhgf 2023 12:51pmFebruary 2024 3:12pmTAKE 1 TABLET BY MOUTH DAILYSumatriptan Succinate 50 mg tabletActive0 .[address] 2023 12:51pmTAKE 1 TABLET BY MOUTH EVERY 2 HOURS NEEDED FOR MIGRAINE HEADACHE, MAX OF 4 TABLETS IN 24 HOURSComplies with drug therapyMetoprolol Tartrate 50 mg tabletDiscontinued0.ROUTE.JOIHDWY5118Ydvvcwie 2024 3:11pmMay 2024 10:27amTAKE 1 TABLET BY MOUTH TWICE DAILY Sertraline 100 mg tabletDiscontinued0.ROUTE.[address] 2024 3:11pm March 03, 2025 11:18amTAKE 1 TABLET BY MOUTH DAILYMetformin 1,000 mg tablet Discontinued0.ROUTE.[address] 2024 3:12pmMay 2024 10:27am TAKE 1 TABLET BY MOUTH TWICE DAILYOlmesartan-Hydrochlorothiazide 20-12.5 mg tabletDiscontinued0[address]ROUTE.[address] 2024 11:23amJune 2024 7:26amTAKE 1 TABLET BY MOUTH DAILYFurosemide 40 mg ktizxsQgnxmejkotoe52CKDRFfbqe 900Ma2024 1:21pmJuly 2024 6:23amMetformin 1,000 mg tablet Discontinued0.ROUTE.ZTBYITX4071Ubb 22nd, 2025 10:27amOctober 2024 10:29am TAKE 1 TABLET BY MOUTH TWICE DAILYMetoprolol Tartrate 50 mg tabletDiscontinued0 .ROUTE.MKUNIEG4978Sex2024 10:27amNovember 2024 10:36amTAKE 1 TABLET BY MOUTH TWICE DAILYPotassium Chloride 10 mEq tablet extended release Discontinued0.ROUTE.VDMLRDD4106Ojek 2nd, 2025 12:45pmNovember 2024 8:36am TAKE 1 TABLET BY MOUTH THREE TIMES DAILY WITH FOODOlmesartan-Hydrochlorothiazide 20-12.5 mg tabletDiscontinued0.ROUTE.YZAYLZD662Jyxv 27th, 2025 7:26amSept2024 7:47amTAKE 1 TABLET BY MOUTH DAILYFurosemide 40 mg tabletDiscontinued 18NEDUYkehx974Cahb 2024 6:22amOctober 2024 6:31amBuspirone 5 mg ntrfnhHagvvwsytynu9HHEJAlplb ikqmn61969Mnasdmvxh 2024 11:18amSeptember 2024 8:39amSertraline 100 mg tabletDiscontinued0.ROUTE.PAYAWXD600Tcgisvqxu 8th, 2025 11:18amOctober 2024 10:21amTAKE 1 TABLET BY MOUTH DAILY Olmesartan-Hydrochlorothiazide 20-12.5 mg tabletActive0.ROUTE.SEDIHDP163 March 17, 2025 7:47amTAKE 1 TABLET BY MOUTH DAILYComplies with drug therapyBuspirone 5 mg ddksjbNheewyuyjbud7DQSIKvbrs jwuep35490Eqdjodi 2024 10:15amNovember 2024 8:24amFurosemide 40 mg tabletActive0.ROUTE.SQWYIIT266 April 18, 2025 6:31amTAKE 1 TABLET BY MOUTH DAILYComplies with drug therapy Buspirone 5 mg xnjkypMxtjuheslvsf2KZWATzicc vqnwj60398Nbylrvfl 2024 8:24am May 29, 2025 10:59amMetoprolol Tartrate 50 mg tabletDiscontinued0.ROUTE .ANXXELK3365Wxmxgvgn2024 10:35amNovember 2024 9:47amTAKE 1 TABLET BY MOUTH TWICE DAILYSertraline 100 mg pltaglXflgas583YQARZvwax498Hvhyxzgn 11th, 2025 10:35amComplies with drug therapyMetformin 1,000 mg xnychxHnezed9200MNRD Twice eyyzs3997Bfiqwxwv2024 2:36pmComplies with drug therapyAtorvastatin 40 mg fzmuudQfqlbp51LXALHradv605Uckqbxqj 28th, 2025 8:36amComplies with drug therapyPotassium Chloride 10 mEq tablet extended releaseActive0.ROUTE.OCLHLQA145 1N2024 8:36amTAKE 1 TABLET BY MOUTH THREE TIMES DAILY WITH FOOD Complies with drug therapyBuspirone 5 mg tabletActive0.ROUTE.NVXKYJK416Siwhdlic 2024 10:59amTAKE 1 TABLET BY MOUTH TWICE DAILYUnknownTizanidine 4 mg tablet Xqeozl2VOGGNoqve times daily as needed for muscle kzbvdgskmt487Dhybdd 2024 11:00pmComplies with drug therapyNaproxen (Naprosyn) 500 mg tabletDiscontinued 500MGPOTwice daily as needed for ciww161Xnwzbw 2024 11:00pmSeptember 2024 8:39amOmeprazole 20 mg capsule,delayed release(DR/EC)Idhbfa61KCPCVuuqv pptkl7460Qrxpsnyj 2024 8:54amComplies with drug therapyAtorvastatin 10 mg rwmbilOkrelovvwetn34BTXNTjcgsZkhgkpok 2020 12:00amFebruary 2021 2:00pmMetformin 850 mg idtajyIyeupkjbakbl3347KDPIMkgtc dailyFebruary 2020 12:00amMay 2023 3:30pmBupropion Hcl 100 mg tablet sustained-release 12 hr Olkntwxgvach942GARUSjpkm dailyFebruary 2020 12:00amMarch 2023 9:13am Metoprolol Tartrate 50 mg lhzznfVicofkyzptab07YYIEMxftm dailyFebruary 2020 12:00amFebruary 2023 2:29pmAspirin 81 mg YguwmnTnqflh25LCJSUtgneZbndsojt 2020 12:00amComplies with drug therapyHydrochlorothiazide 25 mg tablet Xjrcuerphjtb98HTNJKqzzkIywmxcuo 2020 12:00amFebruary 2021 2:00pm Escitalopram Oxalate 20 mg couvdeXilgmgxgpkgb26NASPJxrznLiejorqx 2020 12:00amMarch 2023 12:08pmPotassium Chloride 10 mEq capsule, extended ybizcbtSzpgktkdugnf51VPCZFMtyyt times dailyJuly 2020 11:00pmMar 2023 2:27pmAmlodipine 5 mg okuhyoBwbicpxzxces7GVRAGhsteBamm 2020 11:00pm August 17, 2021 2:00pmAzithromycin 250 mg vsvocyDztnpmnxhkts0GO.OKVTAGH49 January 14, 2021 11:00pmFebruary 2021 2:00pmtake 500 mg today (day 1), then 250 mg for 4 days (days 2-5)Furosemide 40 mg ctoabuKmlcqcszvojg14BEUGCtzsl August 17, 2021 12:00amMay 2023 1:09pmAtorvastatin 40 mg tablet DiscontinuedMGFebruary 2021 12:00amJanuary 2022 2:54pmVenlafaxine 75 mg capsule,extended release 29zhExvqowicuqqf93GWBZYroadRxijoyza 2021 12:00amOctober 2023 2:26pmKetorolac 10 mg aevdqqNfzeytmcntlf93DKPMZ9D as needed for zmkp760Zafiwkqj 2021 12:00amJanuary 2022 2:54pm Cyclobenzaprine 10 mg quhtkgUexzmerjhvna25YJEHAyxhn times daily as needed for muscle hkebw825Cjpkylsb 2021 12:00amMarch 2023 12:09pmLidocaine 5 % adhesive patch,mvrovilihXnklehoueapm4ORWOLGGVVJZKTawnr as needed for kjbp484 August 17, 2021 12:00amOctober 2023 10:32amleave on most painful area for up to 12 hrsPrednisone 20 mg isjsirKyejephjzypz78AKDMRpyzy194Lwzgtrb 2022 12:00amMarch 2023 12:09pmadminister with food or milkSertraline 100 mg cetebiKzgbqcniqcoa926EJGQEtkwvIzkmtmut 2023 12:00amFebruary 2023 2:29pmFurosemide (Lasix) 40 mg smrwldQfaicazarwor89EHXWJsiyvZhoounlt 2023 12:00amFebruary 2023 2:29pmMetoprolol Tartrate (Lopressor) 50 mg tablet Hpqnagcucdzv13KRSPBptrz dailyFebruary 2023 12:00amJune 2023 10:07am Atorvastatin 40 mg oqdfseWnmsbdkvnbki83VRBWQcpxuEhvzyube 2023 12:00am August 14, 2023 2:29pmMetformin 1,000 mg lpxagsZbymwfurepyy9398MLZJUclpg dailyFebruary 2023 12:00amFebruary 2023 2:29pmAtorvastatin 40 mg xhaktbOoxtxhvknvkg57OLXHMxxgj643Tmsfibvp 2023 2:27pmMay 2023 1:09pm Furosemide (Lasix) 40 mg nljxjuLdlbthvtwnxm19MHEKXmsmo703Nhbobxqc 2023 2:27pmJune 2023 10:46amMetformin 1,000 mg vglqvjNusjappdrgbz0858XVCYLbxsl wjirx3920Slvwwojo 2023 2:28pm[facility]23 12:09pmSertraline 100 mg bfgfbrTavaibmiyvck618EYAHKbaqn357Fkwzanio 2023 2:28pmPay 2023 1:09pm Metoprolol Tartrate 50 mg frjfieYoumwzgxrzdf03SXOBIzwal eygcf1079Hrlnqdfk 2023 2:29pmMay 2023 1:03pmBupropion Hcl 200 mg tablet sustained-release 12 tmMpzxcolvchmj666GUPTXkgar dailyBlanchard Valley Health System 2023 11:00pmBl[facility] 2023 12:09pm Bupropion Hcl 200 mg tablet sustained-release 12 weSxkjzgleoyov875ECRSMdjeq gstsw981Uufve 2023 12:09pmPay 2023 1:09pmMeclizine 25 mg tablet Cxopzdyplpqx75HUQLSupkj daily as needed for tgaymjnvf307Kddx2023 11:00pm April 01, 2024 10:31amOndansetron 4 mg tablet,iclfyqimeuobopAkhhbbvxryyz1WAEL Q8H as needed for nausea and nzljdqlr551Rxyc2023 10:40amJune 2023 10:45amOndansetron 4 mg tablet,mdbbhtavrtiyrvQtunqulsvsmx3ZSVVM9O as needed for nausea and wcaddidl249Zcvb2023 10:44amNovember 2023 12:52pm Olmesartan-Hydrochlorothiazide 20-12.5 mg vekbhnZzaddhexqpsx4CWLGNVmqyhMiflfoqw 18th, 2024 12:00amNovember 2023 2:21pmAzithromycin 250 mg tablet Jcrqaxdnazln5QY.QNMUMVE30UtkzvisbMay 13, 2024 12:00amFebruary 2024 3:03pm For 250 mg dose pack: take 500 mg today (day 1), then 250 mg for 4 days (days 2- 5) POOlmesartan-Hydrochlorothiazide 20-12.5 mg zgieqaOvproffxnldg4AZHIHZblkd855 May 13, 2024 2:21pmMarch 2024 11:23amSemaglutide (Ozempic) 0.25 mg or 0.5 mg (2 mg/3 mL) pen injectorDiscontinued0.25MGSUBCUTevery sqni23Wqqxxynf 2024 12:00amAugust 2024 5:03pmfor 4 weeksCiprofloxacin Hcl 500 mg vognwyArisrjpymtaj856CJGDRkhzz eymhr611Eanu 2024 11:00pmAugust 2024 5:02pmSemaglutide (Weight Loss) (Wegovy) 0.25 mg/0.5 mL pen injectorDiscontinued 0.25MGSUBCUTevery txnw54Mhbseiwpi2024 11:00pmOctober 2024 10:08am administer weeks 1 through 4 of therapyFamotidine (Pepcid) 40 mg ltxjlnDgzsvw73 MGPODaily at aiyuxnv805Efzxooem 3rd, 2025 12:00amComplies with drug therapy Tirzepatide (Weight Loss) (Zepbound) 2.5 mg/0.5 mL pen injectorDiscontinued2.5MG SUBCUTevery week2.5302024 1:39pmDece2024 2:01pmOSA on CPAP Morbid obesity with body mass index (BMI) of 50.0 to 59.9 in adult Obstructive sleep apnea (adult) (pediatric) Morbid (severe) obesity due to excess calories Body mass index [BMI] 50.0-59.9, adult brandon G47.33for 4 weeksMetformin 1,000 mg bkiddfOjwqtvialpgu1921REHOSmpxy dailyMay 20th, 2024 11:00pmMay 2023 3:43pmFluticasone Propionate (Flonase Allergy Relief) 50 mcg/actuation spray,cedxuxrnfdQxkidqommhof4IZBRZYBGYYPATZOHwurr167 December 10, 2023 11:00pmNov2023 12:52pmadminister into each nostril Ondansetron 4 mg tablet,hnyzwphfvshgfbZhuhggjmfkgk2OITOI8P as needed for nausea and lelkxunj695Kscx 2023 11:00pmJune 2023 10:40amSumatriptan Succinate 50 mg hrjztjYpegmkgqouyg59KCFAAbqbv 2 hours as needed for migraine rgdqdxil503Pqxy 2023 11:00pmJuly 2023 10:37amdo not exceed 4 doses per 24 hrsBuspirone 5 mg srmjdrAwtyumrqabzo7WCVAGehsx lwhio36085Kixyt 2024 11:00pmSept2024 11:18amTopiramate 25 mg capsule,extended release 24hr Lkymwn25CCFXYweimBnvvqhj 28th, 2025 11:00pmComplies with drug therapyTirzepatide (Weight Loss) (Zepbound) 2.5 mg/0.5 mL pen injectorDiscontinued2.5MGSUBCUTevery week2.5300Oct2024 11:00pmApril 28, 2025 1:40pmosa G47.33for 4 weeksSertraline 100 mg yxbyuxJnxdkwtaqrng038YIMRHsizjLskssyu 13th, 2025 10:07am May 06, 2025 10:36amMetformin 1,000 mg xiooazPimgoqvqnxst5952VSRHDrhwj dailyOct2024 10:28amNovember 2024 2:36pmAtorvastatin 40 mg eiyhlwUczjvmymcnbc56PARLLdjdzOolrxoe 13th, 2025 10:29amNove2024 8:36amOmeprazole 20 mg capsule,delayed release(DR/EC)Qkkachijgrbq87THAZFjirx055 April 02, 2025 11:00pmDece2024 8:54amCarvedilol (Coreg) 12.5 mg vbsgjlIsfqlh07.5MGPOTwice cglfc98907CikxnfhjMay 15, 2025 12:00ammust administer with a meal/foodComplies with drug therapy Immunizations Immunization Event Date Not Given Reason Dose Number Bilingual Nanny Lot Number Reason(s) Given Vaccine Information Statement (VIS) Detail Administration Location Tetanus, Diphtheria, Pertussis (Tdap) January 15, [address] Relevant Diagnostic Tests and/or Laboratory Data Laboratory Results Test Collection Date/Time Result Date/Time Result Interpretation Reference Range Result Comment Performing Site Ferritin April 21, 2025 1:07pm April 21, 2025 1: 07pm 40.0 ng/mL 8.0-252.0[facility] 2024 1:07pmOctking[facility] 2024 1:07pm10.6 % Basophils # (Auto)April 21, 2025 1:07pmOctking's daughters medical center 2024 1:07pm0.0 10 3/uL 0.0-0.1Bedside Hemoglobin D5oWmmgwactApril 28, 2025 1:23pmApril 28, 2025 1:24pm 5.9 %FerritinDece2024 9:31amDecember 2024 9:31am64.0 ng/mL 8.0-252.0[facility] 9:31amDecember 2024 9:31am13.3 % Basophils # (Auto)June 03, 2025 9:31amDecember 2024 9:31am0.0 10 3/uL 0.0-0.1Anion GapDec.[facility]2024 9:31amDecember 2024 9:31am13.4Iron Level April 21, 2025 1:07pmOctking's daughters medical center 2024 1:07pm34.0 ug/dLBelow low normal 50.0-170.0Basophils (%) (Auto)April 21, 2025 1:07pmOctober 2024 1:07pm 0.6 %0.2-2.0Iron LevelDec.[facility]2024 9:31amDecember 2024 9:31am41.0 ug/dLBelow low ulcmfi05.0-170.0Basophils (%) (Auto)June 03, 2025 9:31am June 03, 2025 9:31am0.3 %0.2-2.0BUN/Creatinine RatioDecember 2024 9:31amDecember 2024 9:31am14.7Total Iron Binding CapacityOctober 2024 1:07pmOctober 2024 1:57fe940.0 ug/dL250.0-450.0Eosinophils # (Auto) April 21, 2025 1:07pmOctober 2024 1:07pm0.1 10 3/uL0.0-0.7Total Iron Binding CapacityDeceer 2024 9:31amDecember 2024 9:03wk030.0 ug/dL 250.0-450.0Eosinophils # (Auto)June 03, 2025 9:31amDecember 2024 9:31am0.0 10 3/uL0.0-0.7Blood Urea Nitrogence2024 9:31amDecember 2024 9:31am14.0 mg/dL7.0-18.0Eosinophils (%) (Auto)April 21, 2025 1:07pmOctober 2024 1:07pm0.8 %Below low normal0.9-7.0Eosinophils (%) (Auto)June 03, 2025 9:31amDecember 2024 9:31am0.6 %Below low normal 0.9-7.0Calcium LevelDeceer 2024 9:31amDecember 2024 9:31am9.1 mg/dL 8.5-10.1HematocritOctober 2024 1:07pmOctober 2024 1:07pm36.8 % 36.0-48.0HematocritDeceer 2024 9:31amJune 03, 2025 9:31am38.3 % 36.0-48.0Chloride LevelDece2024 9:31amDecember 2024 9:36vw424 mmol/I40-788JeaicpkctsMlkvloa 27th, 2025 1:07pmOctober 2024 1:07pm11.4 g/dLBelow low ycexzz13.0-16.0HemoglobinDe2024 9:31amDecember 2024 9:31am12.4 g/dL12.0-16.0Carbon Dioxide LevelDec.[facility]2024 9:31am June 03, 2025 9:31am27.4 mmol/L21.0-32.0Immature Granulocyte # (Auto) April 21, 2025 1:07pmOctober 2024 1:07pm0.03 10 3/uL0.00-0.03Immature Granulocyte # (Auto)June 03, 2025 9:31amDecember 2024 9:31am0.02 10 3/uL0.00-0.03CreatinineDece2024 9:31amDecember 2024 9:31am0.95 mg/dL0.55-1.02Immature Granulocyte % (Auto)April 21, 2025 1:07pmOctober 2024 1:07pm0.5 %0.0-0.5Immature Granulocyte % (Auto)June 03, 2025 9:31amDecember 2024 9:31am0.3 %0.0-0.5Estimated GFR () June 03, 2025 9:31amDecember 2024 9:31am>60>=60 mL/min/1.73m 2 Lymphocytes # (Auto)April 21, 2025 1:07pmOctober 2024 1:07pm1.3 10 3/uL1.2-3.8Lymphocytes # (Auto)June 03, 2025 9:31amDecember 2024 9:31am1.1 10 3/uLBelow low normal1.2-3.8Estimated GFR (Non- June 03, 2025 9:31amDecember 2024 9:31am>60>=60 mL/min/1.73m 2 Lymphocytes (%) (Auto)April 21, 2025 1:07pmOctober 2024 1:07pm19.0 % Below low omomzs62.5-60.0Lymphocytes (%) (Auto)June 03, 2025 9:31amDecember 2024 9:31am16.2 %Below low eppwly25.5-60.0Glucose LevelDece2024 9:31amDecember 2024 9:31xw003 mg/dLAbove high igrcsk41-661Xpey Corpuscular HemoglobinOct2024 1:07pmOctober 2024 1:07pm24.8 pgBelow low mqxwou19.7-34.0Mean Corpuscular HemoglobinDece2024 9:31amDecember 2024 9:31am27.4 pg26.7-34.0Potassium LevelDece2024 9:31amDecember 2024 9:31am3.8 mmol/L3.5-5.1Mean Corpuscular Hemoglobin ConcentOct2024 1:07pmOctober 2024 1:07pm31.0 g/dL29.9-35.2Mean Corpuscular Hemoglobin ConcentDecember 2024 9:31amDecember 2024 9:31am32.4 g/dL 29.9-35.2Sodium LevelDece2024 9:31amDecember 2024 9:31sz711 mmol/I524-659Aomp Corpuscular VolumeOctober 2024 1:07pmOctober 2024 1:07pm80.2 fLBelow low .0-99.0Mean Corpuscular VolumeDece2024 9:31amDecember 2024 9:31am84.7 fL81.0-99.0Monocytes # (Auto)April 21, 2025 1:07pmOctober 2024 1:07pm0.4 10 3/uL0.3-0.8Monocytes # (Auto)June 03, 2025 9:31amDecember 2024 9:31am0.4 10 3/uL0.3-0.8Monocytes (%) (Auto) April 21, 2025 1:07pmOctober 2024 1:07pm5.6 %1.7-12.0Monocytes (%) (Auto)June 03, 2025 9:31amDecember 2024 9:31am6.1 %1.7-12.0Mean Platelet VolumeOct2024 1:07pmOctober 2024 1:07pm10.0 fL9.5-13.5 Mean Platelet VolumeDe2024 9:31amDecember 2024 9:31am10.1 fL 9.5-13.5Neutrophils # (Auto)April 21, 2025 1:07pmOctober 2024 1:07pm 4.8 10 3/uL1.4-6.5Neutrophils # (Auto)June 03, 2025 9:31amDecember 2024 9:31am5.2 10 3/uL1.4-6.5Neutrophils (%) (Auto)April 21, 2025 1:07pm April 21, 2025 1:07pm73.5 %43.0-75.0Neutrophils (%) (Auto)June 03, 2025 9:31amDecember 2024 9:31am76.5 %Above high xufwhz16.0-75.0Platelet Count April 21, 2025 1:07pmOctober 2024 1:79gn245 10 3/nN019-397Haxfbatw CountDece5 9:31amDecember 2024 9:72vd256 10 3/cX007-646Teo Blood CountOctober 2024 1:07pmOctober 2024 1:07pm4.59 10 6/uL 4.20-5.40Red Blood CountDecember 2024 9:31amDecember 2024 9:31am4.52 10 6/uL4.20-5.40Red Cell Distribution WidthOctober 2024 1:07pmOctober 2024 1:07pm24.5 %Above high ctpsdi93.0-15.0Red Cell Distribution Width June 03, 2025 9:31amDecember 2024 9:31am17.6 %Above high normal 11.0-15.0Corrected White Blood CountOctober 2024 1:07pmOctober 2024 1:07pm6.6 10 3/uL4.0-11.0Corrected White Blood CountDecember 2024 9:31am June 03, 2025 9:31am6.7 10 3/uL4.0-11.0Gliadin (Deamidated) IgA Antibody March 15, 2025 7:31amSeptember 2024 7:36am6 units0-19Negative 0 - 19 Weak Positive 20 - 30 Moderate to Strong Positive >30[facility] Gliadin (Deamidated) IgG AntibodySeptember 2024 7:31amSeptember 2024 7:36am2 [...] have over 99% specificity for gluten sensitive enteropathy.[facility] Tissue Transglutaminase IgG AbSeptember 2024 7:31amSeptember 2024 7:36am3 U/mL0-5Negative 0 - 5 Weak Positive 6 - 9 Positive >9[facility] IgA AntibodySeptember 2024 7:31amSeptember 2024 7:36amNegativeNegativeLabCorp IgA (Nephelometry) March 15, 2025 7:31amSeptember 2024 7:17ai119 mg/uO64-019Gngjgbksv at: - [facility] [address] [id number] Director: Eddie You PhD, Phone: [phone] Vital Signs Vital Reading Result Reference Range Collection Date/Time Height 66 [in_i] April 03, 2025 12:07oqUhjgfu219.10 kgApril 03, 2025 12:49pmHeart Rate75 /nhn45-371WjnqrmbApril 03, 2025 12:49pmBP Hunctfxq136 mm[Hg]100-140April 03, 2025 12:49pmBP Bvfdudcci92 mm[Hg]60-100April 03, 2025 12:49pmBMI (Body Mass Index)58.7 kg/y0GtsqimnApril 03, 2025 12:25sjVltdol66.61 [in_i]April 07, 2025 10:94xiUsjwsm339.35 kgApril 07, 2025 10:30amHeart Rate59 /bbw02-058TwqxsamApril 07, 2025 10:30amRespiratory rate18 /jos15-58Nwhelnr 13th, 2025 10:30amBP Fknoaqug254 mm[Hg]100-140April 07, 2025 10:30amBP Iwedgdbca82 mm[Hg]60-100 April 07, 2025 10:30amBMI (Body Mass Index)61.0 kg/y0Kbnvsqb 2024 10:87jkLodell23.5 [in_i]April 23, 2025 8:22afDxbgsc559.01 kgApril 23, 2025 8:09amHeart Rate66 /rlm15-416Skznjqk 2024 8:09amOxygen saturation by Pulse fsdsulxe17 %95-100Oct2024 8:09amBP Ggnwvytq596 mm[Hg]100-140 April 23, 2025 8:09amBP Strckldiq90 mm[Hg]60-100Oct2024 8:09amBMI (Body Mass Index)58.1 kg/w6Gtydgzj 2024 8:69keFhduuu91.5 [in_i]April 28, 2025 1:80czJfssik107.46 kgNov2024 1:07pmHeart Rate67 /tsg27-248 April 28, 2025 1:07pmBP Niusjzpl038 mm[Hg]100-140April 28, 2025 1:07pmBP Npwvpekgw18 mm[Hg]60-100April 28, 2025 1:07pmBMI (Body Mass Index)58.3 kg/u4Igxdocwm2024 1:93hrBcjgcx03.5 [in_i]April 29, 2025 1:30pmWeight 166.01 kgNov2024 1:30pmHeart Rate70 /vnh83-347FrnbluiaApril 29, 2025 1:30pmBP Ehwfrebz764 mm[Hg]100-140April 29, 2025 1:30pmBP Wwpustnaa74 mm[Hg] 60-100April 29, 2025 1:30pmBMI (Body Mass Index)58.1 kg/r0Ttmqaoxb2024 1:51srXtrnyl51.5 [in_i]May 15, 2025 9:84lkWtficg427.46 kgNov2024 9:12amHeart Rate69 /kxf34-560GodbvayzMay 15, 2025 9:12amRespiratory rate18 /bjf40-28MioytxtwMay 15, 2025 9:12amOxygen saturation by Pulse %95-100 May 15, 2025 9:12amBP Urizwfdg865 mm[Hg]100-140May 15, 2025 9:13am BP Rynowougb15 mm[Hg]60-100May 15, 2025 9:13amBMI (Body Mass Index)58.3 kg/m3Ouoqaetk2024 9:74geGyndkg24 [in_i]Shiva 19th, 2025 7:25amWeight 163.29 kgJune 13, 2025 7:25amHeart Rate60 /edf11-146WjwhajseJune 13, 2025 9:25amRespiratory rate18 /qlf72-88ReejbpfiJune 13, 2025 9:25amOxygen saturation by Pulse %95-100June 13, 2025 9:25amBP Bbxngzft941 mm[Hg]100-140 June 13, 2025 9:25amBP Nrtdivkew39 mm[Hg]60-100June 13, 2025 9:25am Advance Directives Advance Directive Response Recorded Date/ Time Advance Directives No August 02, 2020 10:16am Insurance Providers Guarantor Nati Santos Address [address] [place] [id number] Info.Home Phone: Coverage Status Update:2025 Payer Group Member ID Coverage Type Subscriber Relationship to Subscriber Effective Date Expiration Date [facility] Employees Id: [id number] K Rawlins Id: [id number] [address] [place] [address] [place] [id number] Home Phone: Email: [email or web address] Encounters Encounter Location(s) Arrival/Admit Date Discharge/Departure Date Discharge/Departure Disposition Provider(s) Departed Clinical -Lab [facility] March 15, 2025 8:06am March 15, 2025 8:07am Discharged to home care or self care (routine discharge) Adonis Ferguson APRN Departed Physician/ Provider Office Visit -[facility] April 03, 2025 1:45pm April 03, 2025 2:13pm Discharged to home care or self care (routine discharge) Evelina Mera MD Departed Physician/ Provider Office Visit -[facility] April 07, 2025 10:38am April 07, 2025 11:59am Discharged to home care or self care (routine discharge) Jason Mackenzie DNP Non-patient / Non-visit -[facility] Professional [facility] O ctober 2024 2:07pm BING Harriseparted Physician/Provider Office Visit-[facility] Sleep [facility] April 23, 2025 8:55amOctober 2024 9:30amDischarged to home care or self care (routine discharge)Kajal Guajardo , MIRANDANDeparted Clinical-Sleep Lab April 23, 2025 12:01pmOctober 2024 12:02pmDischarged to home care or self care (routine discharge)Kajal Guajardo , MIRANDANDeparted Physician/Provider Office Visit-[facility] 2024 1:01pmAprw[facility] 2024 1:39pmDischarged to home care or self care (routine discharge)Evelina Mera , MDDeparted Physician/Provider Office Visit-[facility] 2024 1:25pmNovwinslow ind[facility] 2024 1:59pmDischarged to home care or self care (routine discharge)Adonis Ferguson , MIRANDANDeparted Physician/Provider Office Visit-[facility] 2024 9:00amNoveer 2024 10:00amDischarged to home care or self care (routine discharge)Ernie Santana-patient / Kek-grpow[facility] 2024 11:56amGeorErnie Shrestha-patient / Ovy-sobyx-[facility] 2024 9:31amABING Ramirezeparted Referred-LAB [facility] 2024 1:34pm[facility] [place] 2024 1:35pm Discharged to home care or self care (routine discharge)David Hansen-patient / Rhc-zliwn-[facility] 2024 7:01Regla Mckeon MD Recent Diagnosis Onset Date Admit Date BPV (benign positional vertigo) Unknown April 03, [...] March 10:38am Generalized anxiety disorder Unknown Mar sushila 2024 10:38am GERD (gastroesophageal reflux disease) Unknown April 07, 2025 10:38am Glaucoma Unknown April 07 10:38am History of kidney stones Unknown April 07, 2025 10:38am Hypertension Unknown April 07 10:38am Iron deficiency anemia Unknown March 262024 10:38am Menieres disease Unknown April 07, 2 025 10:38am BRANDON on CPAP Unknown April 07 10:38am Type II diabetes mellitus Unknown Octobe r 2024 10:38am Hypertension Unknown April 23 8:55am Iron [...] 1:01pm Type II diabetes mellitus Unknown Novemb er 2024 1:01pm GERD (gastroesophageal reflux disease) Unknown April 29, 2025 1:25pm Iron deficiency anemia Unknown April 29, 2025 1:25pm BMI 60.0-69.9, adult Unknown May 152024 9:00am Dyspnea on exertion Unknown April 9:00am Essential (primary) hypertension Unknown May 15, 2025 9:00am Iron deficiency anemia Unknown May 15, 2025 9:00am BRANDON on CPAP Unknown May 15, 025 9:00am Palpitations Unknown May 15, 2 025 9:00am Assessments Diagnosis Onset Date Resolution Status Admit Date BPV (benign positional vertigo) [facility] 2024 1:45pmDyspnea on exertionacuteOctking's daughters medical center 2024 1:45pm Generalized anxiety disorderacuteOctober 2024 1:45pmGERD (gastroesophageal reflux disease)acuteOctober 2024 1:45pmMenieres diseaseacuteOctober 2024 1:45pmMorbid obesity with body mass index (BMI) of 50.0 to 59.9 in adult [facility] 20[facility] 1:45pmAnemiainactiveOctober 2024 1:45pmAbnormal weight gainacuteOctking's daughters medical center 2024 10:38amBMI 60.0-69.9, adultacuteOctober 2024 10:38amClass 3 severe obesity with body mass index (BMI) of 60.0 to 69.9 in adultacuteOctober 2024 10:38amDepressionacuteM[facility] 2024 10:38am Dietary surveillance and counselingacuteMarking's [facility] 2024 10:38amExercise counselingacuteM[facility] 2024 10:38amGeneralized anxiety disorderacute April 07, 2025 10:38amGERD (gastroesophageal reflux disease)acuteM[facility] 2024 10:38amGlaucomaacuteOctking's daughters medical center 2024 10:38amHistory of kidney stonesacuteOctking's daughters medical center 2024 10:38amHypertensionacuteOctking's daughters medical center 2024 10:38am Iron deficiency anemiaacuteApril 07, 2025 10:38amMenieres diseaseacute April 07, 2025 10:38amOSA on CPAPacuteOctking's daughters medical center 2024 10:38amType II diabetes mellitusacuteOctober 2024 10:38amHypertensionacuteOctober 2024 8:55amIron deficiency anemiaacuteOctking's daughters medical center 2024 8:55amOSA on CPAPacute April 23, 2025 8:55amType II diabetes mellitusacuteOctober 2024 8:55am BMI 50.0-59.9, adultnoneactiveOctober 2024 8:55amGERD (gastroesophageal reflux disease)acuteNov2024 1:01pmMorbid obesity with body mass index (BMI) of 50.0 to 59.9 in adultacuteE[facility]20[facility] 1:01pmOSA on CPAPacute April 28, 2025 1:01pmType II diabetes mellitusacuteNov2024 1:01pm GERD (gastroesophageal reflux disease)acuteNov2024 1:25pmIron deficiency anemiaacuteJames [facility]. [facility] 2024 1:25pmBMI 60.0-69.9, adultMer[facility]2024 9:00amDyspnea on exertionacuteE[facility]2024 9:00amEssential (primary) hypertensionacuteE[facility]2024 9:00amIron deficiency anemiaacute May 15, 2025 9:00amOSA on CPAPMer[facility]2024 9:00amPalpitations acuteE[facility]2024 9:00am Plan of Treatment Author Adonis Ferguson [facility] 2024 3:37pm- Schedule EGD and colonoscopy [...] post EGD and colonoscopy. Author Evelina Mera [facility] 2024 8:41amZepbound resent. Continue metformin. Followup w hematology and GI as scheduled. Will share her concerns w her specialists at sleep clinic and GI. Followup accordingly. Shoshana sent to pharmacy. States GI suggested that late in the day and PPI qam. Author Kajal Guajardo [facility] CenterAuthoredOctober 2024 10:57amPatient recently received a new machine [...] during the encounter. Tool is approved by [facility] and configured for HIPAA-compliant use. No objections voiced. Author Brigitte Busch [facility] CenterAuthoredOctober 2024 11:06amSee above treatment plan. [...] years ago. She is now following with [facility] for sleep, she may have an updated sleep study soon. No suicidal or homicidal ideations. She does attend counseling routinely. She will continue to do so. Blood pressure appears to be stable. Last lab work was done 02/2025. She will continue to follow with her PCP for this. Stable at this time, she continues to follow with the skin care specialist. Last lab work was done 02/2025. [...] clarify if she wants compounded Semaglutide from [facility] Treatment Plan: Nati is a 39-year-old [...] CPAP (sleep study 5-10 years ago at [facility], following with [facility] now, sees them end of this month), KAE/depression (sees counseling routinely; does not see psychiatry [...] may be interested in compounded semaglutide from [employer] [facility], she will let our office know after [...] understanding that treatment plan may change management lead time and tools, such as medications, do [...] as appropriate for the patient. Consider our bridal stylist sales consultant for guidance. Handout given. We offer individual [...] have a history of kidney stones. Author Evelina Mera [facility] CenterAuthoredOctober 2024 6:33pmCardiology referral placed, likely [...] w ENT as scheduled. Author Lamberto Burgess [facility] CenterAuthoredNovember 2024 10:15am# Shortness of breath - Differential [...] dx, Anxiety, Depression, Morbid obesity. PCP: Dr. Eveilna Mera EKG 05/15/2025 ??? normal sinus rhythm, [...] Procedures Procedure Name Ordered Date Scheduled Date Discharge Order June 13, 2025 8:53am Decem jamar 2024 8:53am STR cardiac stress/cardiol May 15, 2025 9 :47am Future Medications Future medication information is unavailable Patient Instructions Instruction Admit Date Nonsteroidal antiinflammator y drugs (NSAIDs) Peptic ulcer - ED discharge instructions [facility] Hemorrhoids Discharge Instructions Know your Meds [facility] Colon Polypectomy Discharge InstructionsDeceer 2024 7:01am Hospital Discharge Instructions Additional Instructions DISCHARGE INSTRUCTIONS FOR UPPER ENDOSCOPY WHAT TO EXPECT: - You may feel full, gassy or cramping after your procedure. In some cases, this may be from a few hours to a day. Walking may help relieve the discomfort. - Your throat may feel sore today from the scope that the doctor passed through your throat to visualize your stomach. Take a throat lozenge or suck on ice to ease the discomfort. - You may notice some streaks of blood in your sputum if the doctor has taken a biopsy. - You should begin to recover from anesthesia within 1 hour of the procedure, however may feel groggy for the next 24 hours. DO's AND DON'Ts: - Call your doctor right away if you have a hard abdomen, severe pain, vomiting or if you cough up large amounts of blood. - Call your doctor if you develop any rashes, hives or difficulty breathing. - If you take 81 mg aspirin for your heart it is safe to resume this medication. - If you take other blood thinner medications your doctor will instruct you when these can safely be resumed. - Do NOT drive for 24 hours. - Do NOT operate machinery such as power tools, lawn mowers, snow blowers, sewing machines, etc. for 24 hours. - Avoid alcoholic beverages and drugs for allergies, nerves, or sleep. - Do NOT stay alone. Do NOT leave your child unattended. - Do NOT make important personal or business decisions or sign any legal documents. - Eat solid foods and drink liquids in smaller amounts than usual until normal appetite returns. If you should experience an upset stomach, liquids high in sugar content (soda, Jordan-Aid, non-acid juices) are recommended. - Do NOT smoke. - Do take it easy today. You need not stay in bed, but avoid strenuous activities such as jogging or working out. DISCHARGE INSTRUCTIONS FOR COLONOSCOPY WHAT TO EXPECT: - You may feel full, gassy or cramping after your procedure. In some cases, this may be from a few hours to a day. Walking may help relieve the discomfort. - If you have polyp(s) removed you may note some minor bloody discharge after your first bowel movements. - You should begin to recover from anesthesia within 1 hour of the procedure, however may feel groggy for the next 24 hours. DO's AND DON'Ts: - Call your doctor right away if you have a hard abdomen, sever pain, are passing lots of bright red blood or clots. - Call your doctor if you develop any rashes, hives or difficulty breathing. - Let your doctor know if you have not had a bowel movement by 3 days after your procedure. - If you take 81 mg aspirin for your heart it is safe to resume this medication. - If you take other blood thinner medications your doctor will instruct you when these can safely be resumed. - Do NOT drive for 24 hours. - Do NOT operate machinery such as power tools, [place] mowers, Cardozwers, sewing machines, etc. for 24 hours. - Avoid alcoholic beverages and drugs for allergies, nerves, or sleep. - Do NOT stay alone. Do NOT leave your child unattended. - Do NOT make important personal or business decisions or sign any legal documents. - Eat solid foods and drink liquids in smaller amounts than usual until normal appetite returns. If you should experience an upset stomach, liquids high in sugar content (soda, Jordan-Aid, non-acid juices) are recommended. - You can resume normal activities tomorrow. FOLLOW UP & RECOMMENDATIONS: -Notify the doctor if you have any problems. -Omeprazole 40 mg twice daily for 8 weeks then increase to 40 mg daily and continue while on aspirin -Avoid NSAIDs - Office number [phone].
--- OUTSIDE RECORDS SUMMARY | 2025-06-24 08:59 | XMS_ITS | Clinical Summary ---
Author Organization [facility] Address [address] [place] [address] Phone Care Team Providers Care Lasting Machine Operator Bed Name Role Phone Unavailable Primary Care Provider Unavailabl e Social History Tobacco UseTypesPacks/DayYears UsedDateSmoking Tobacco: Never Assessed CommentsUnknownSex and Gender InformationValueDate RecordedSex Assigned at Not on fileLegal GgwJhkcms28/26/2022 4:41 PM ESTGender IdentityNot on fileSexual OrientationNot on file Plan of Treatment Not on file
--- OUTSIDE RECORDS SUMMARY | 2025-06-24 08:59 | XMS_ITS | Encounter Summary ---
Author Organization [facility] Address [address] [place] [address] Care Team Providers Care Reaming Machine Tender Name Role Phone Evelina Mera MD Primary Care Provider [phone] Encounter Details DateTypeDepartmentCare Team (Latest Contact Info)Csgwghpesxu25/29/2025bstract [facility] [address] [place] [address] David Villeda DO [address] Imtiaz Sun, [facility] Social History Tobacco UseTypesPacks/DayYears UsedDateSmoking Tobacco: NeverSmokeless Tobacco: NeverAlcohol UseStandard Drinks/WeekCommentsNot Currently0 (1 standard drink = 0.6 oz pure alcohol)CommentsNoSex and Gender InformationValueDate RecordedSex Assigned at BirthNot on fileLegal IvoPacrfk66/15/2023 6:56 PM EDT Gender IdentityNot on fileSexual OrientationNot on filedocumented as of this encounter Plan of Treatment Not on file documented as of this encounter Visit Diagnoses Not on filedocumented in this encounter Care Teams Team MemberRelationshipSpecialtyStart DateEnd Date Evelina Mera MD [address] [place] [phone] PCP - GeneralFamily Medicine10/08/24documented as of this encounter
--- OUTSIDE RECORDS SUMMARY | 2025-06-24 08:59 | XMS_ITS | Patient Health Record ---
Author Organization [facility] [place] Address [address] [place] [address] Care Team Providers Care Digital Strategist Senior Manager Name Role Phone Evelina Mera MD Primary Care Provider Unavailab le Roni Ely Unavailable [phone] JOSE, ELY Unavailable [phone] Results Component Value Reference Range Notes CRP (Not yet reviewed by pro vider) Interpretation: Performing Lab: Notes/Report: [facility] , C Reactive Protein 2.01 <=0.50 mg/dL Performing Lab:see noteML - [facility] LBFERRITIN (Not yet reviewed by provider) Interpretation: Performing Lab: Notes/Report: [facility] ,Ferritin9.08.0-252.0 ng/mLPerforming Lab:see noteML - [facility] LB IRON AND TIBC (Not yet reviewed by provider) Interpretation: Performing Lab: Notes/Report: [facility] ,Iron21.050.0-170.0 ug/dLTotal Iron Binding Ngxoruvm899.0250.0-450.0 ug/dL Percent Iron Saturation5.0Performing Lab:see noteML - [facility] LB LDH (Not yet reviewed by provider) Interpretation: Performing Lab: Notes/Report: [facility] ,Lactate Gpoixckaqgrpe18907-926 U/LPerforming Lab:see noteML - [facility] LBPROF 14(COMP METB) (Not yet reviewed by provider) Interpretation: Performing Lab: Notes/Report: [facility] ,Ptvoln108849-460 mmol/LPotassium3.43.5-5.1 mmol/UVpkbgyre12966-005 mmol/LCarbon Bivakis67.421.0-32.0 mmol/LAnion Gap14.7Ceipipc92250-109 mg/dLBlood Urea Rkfveupk80.07.0-18.0 mg/dLCreatinine0.730.55-1.02 mg/dLEstimated GFR ( Rosalie>60>=60 mL/min/1.73m 2Estimated GFR (Non- Celine>60>=60 mL/min/1.73m 2BUN Creatinine Ratio15.2Fadhwdb6.58.5-10.1 mg/dLBilirubin Total0.60.2-1.0 mg/dL Aspartate Amino Xdvyvomrvue1375-44 U/LAlanine Lsckazssqdihpygc8322-64 U/L Alkaline Arfezfvdpug36775-123 U/LTotal Protein8.46.4-8.2 g/dLAlbumin Level3.9 3.4-5.0 g/dLGlobulin4.5Albumin Globulin Ratio0.9Performing Lab:see noteML - [facility] LBErythrocyte Sedimentation Rate (Not yet reviewed by provider) Interpretation: Performing Lab: Notes/Report: [facility] ,Erythrocyte Sedimentation Dowd892<=20 mm/hrPerforming Lab:see noteML - [facility] LBIFE, PE and FLC, Serum (Not yet reviewed by provider) Interpretation: Performing Lab: Notes/Report: [facility] ,Immunoglobulin G, Qn, Reudk378862-9696 mg/dLImmunoglobulin A, Qn, Ncozr45094- 352 mg/dLImmunoglobulin M, Qn, Fkfdd81514-980 mg/dLProtein, Total7.56.0-8.5 g/dL Albumin4.02.9-4.4 g/aXNcpch-6-Ocoslbeo3.30.0-0.4 g/wZAzyup-7-Xbdzlqgc9.80.4-1.0 g/dLBeta Globulin1.30.7-1.3 g/dLGamma Globulin1.10.4-1.8 g/dLM-SpikeNot Observed Not Observed g/dLGlobulin, Total3.52.2-3.9 g/dLA/G Ratio1.20.7-1.7Immunofixation Result, SerumComment.No monoclonality detected.Please note:Comment. mail, or zipper trimmer delivery. Protein electrophoresis scan will follow via computer, Free [place] Lt Chains,S24.43.3-19.4 mg/LFree Lambda Lt Chains,S21.75.7-26.3 mg/L [place]/Lambda Ratio,S1.120.26-1.65 [address] [place], [place] [id number] Hotel Reservationist: Eddie You PhD, Phone: [phone] [facility]formed at: [facility] Performing Lab:see note - [facility] LBReticulocyte Pct Auto (Not yet reviewed by provider) Interpretation: Performing Lab: Notes/Report: [facility] ,Reticulocyte Pct Auto2.680.60-3.10 %Performing Lab:see note - [facility] LBFERRITIN (Not yet reviewed by provider) Interpretation: Performing Lab: Notes/Report: [facility] ,Cxcvkpcl31.08.0-252.0 ng/mLPerforming Lab:see note - [facility] LB IRON AND TIBC (Not yet reviewed by provider) Interpretation: Performing Lab: Notes/Report: [facility] ,Iron34.050.0-170.0 ug/dLTotal Iron Binding Nrehquft422.0250.0-450.0 ug/dL Percent Iron Qhppzayial81.6Performing Lab:[facility]Mer[facility] LB CBC AUTO DIFF (Not yet reviewed by provider) Interpretation: Performing Lab: Notes/Report: [facility] ,White Blood Count6.64.0-11.0 10 3/uLRed Blood Count4.594.20-5.40 10 6/uL Qyryskwrij83.412.0-16.0 g/nIEjhrhvkhxh55.836.0-48.0 %Mean Corpuscular Qhrpyk48.2 81.0-99.0 fLMean Corpuscular Yrzwfjkdby61.826.7-34.0 pgMean Corpuscular HGB Conc 31.029.9-35.2 g/dLRed Cell Distribution Width24.511.0-15.0 %Platelet Fxztm950 150-450 10 3/uLMean Platelet Rrhnrn82.09.5-13.5 fLNeutrophils Percent Auto73.5 43.0-75.0 %Lymphocytes Percent Auto19.020.5-60.0 %Monocytes Percent Auto5.61.7- 12.0 %Eosinophils Percent Auto0.80.9-7.0 %Basophils Percent Auto0.60.2-2.0 % Immature Granulocytes Pct Auto0.50.0-0.5 %Neutrophils Absolute Auto4.81.4-6.5 10 3/uLLymphocytes Absolute Auto1.31.2-3.8 10 3/uLMonocytes Absolute Auto0.40.3-0.8 10 3/uLEosinophils Absolute Auto0.10.0-0.7 10 3/uLBasophils Absolute Auto0.00.0- 0.1 10 3/uLImmature Granulocytes Abs Auto0.030.00-0.03 10 3/uLPerforming Lab:see noteML - [facility] LBVitamin B12 (Not yet reviewed by provider) Interpretation: Performing Lab: Notes/Report: [facility] ,Vitamin N52862346-3727 pg/mL Hotel Reservationist: Eddie You PhD, Phone: [phone] Performed at: - [facility] [address] [id number] Performing Lab:see noteLC - [facility] LBCBC AUTO DIFF (Not yet reviewed by provider) Interpretation: Performing Lab: Notes/Report: [facility] ,White Blood Count7.24.0-11.0 10 3/uLRed Blood Count4.714.20-5.40 10 6/uL Hemoglobin9.312.0-16.0 g/wIKlvxdnafpd79.636.0-48.0 %Mean Corpuscular Wezuhz02.2 81.0-99.0 fLMean Corpuscular Ugcvxbaxar79.726.7-34.0 pgHYPOCHROMASIA 1+Mean Corpuscular HGB Conc28.529.9-35.2 g/dLRed Cell Distribution Width17.711.0-15.0 % Platelet Qzlyv268034-197 10 3/uLMean Platelet Volume9.89.5-13.5 fLNeutrophils Percent Auto77.743.0-75.0 %Lymphocytes Percent Auto15.820.5-60.0 %Monocytes Percent Auto4.51.7-12.0 %Eosinophils Percent Auto0.70.9-7.0 %Basophils Percent Auto0.60.2-2.0 %Immature Granulocytes Pct Auto0.70.0-0.5 %Neutrophils Absolute Auto5.61.4-6.5 10 3/uLLymphocytes Absolute Auto1.11.2-3.8 10 3/uLMonocytes Absolute Auto0.30.3-0.8 10 3/uLEosinophils Absolute Auto0.10.0-0.7 10 3/uL Basophils Absolute Auto0.00.0-0.1 10 3/uLImmature Granulocytes Abs Auto0.050.00- 0.03 10 3/uLPerforming Lab:see noteML - [facility] LB Reason For Referral No Information Encounters Encounter Location Date Provider Diagnosis [facility] Oncology [address] [place] [address] 03/14/2025 [facility] [address] [facility] [address]/ [facility] [address] [facility] [place] [address]/[facility] [address] [facility] [place] [address]/[facility] On[facility] [address] [facility] [place] [address]/[facility] Plan Of Treatment Pending Test Test Name Order Date CBC AUTO DIFF 03/04/2025 CBC AUTO DIFF 04/21/2025 CRP 03/04/2025 FERRITIN 03/04/2025 FERRITIN 04/21/2025 IRON AND TIBC 04/21/2025 IRON AND TIBC 03/04/2025 LDH 03/04/2025 PROF 14(COMP METB) 03/04/2025 Erythrocyte Sedimentation Rate MORENITA, PE and FLC, Serum 03/04/2025 Reticulocyte Pct Auto 03/04/2025 Vitamin B12 03/04/2025 Insurance Providers Payer Name Payer Address Payer Phone Subscriber Number Group Number Insured Name Patient Relationship to Insured Coverage Start Date Coverage End Date [employer] [place] [employer] [address] [address] [place] [address] [id number] Shlomo Santos - patient is the insured
--- OUTSIDE RECORDS SUMMARY | 2025-06-24 08:59 | XMS_ITS | Clinical Summary ---
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 Name Role Phone Evelina Mera MD Primary Care Provider [phone] Allergies Active AllergyReactionsCriticalityNoted DateCommentsPenicillin V107/29/2024 Other Reaction(s): rash XhadxafsejrPngtQpq69/02/2017 Other Reaction(s): Unknown Sulfa DxknrbfymhmUepqocyemdnThaa80/07/2024 Other Reaction(s): Swelling of Lip/Tongue/Throat, tongue swelling Ktahsjqcvlzwykeg12/07/2024 Other Reaction(s): Swelling of Lip/Tongue/Throat, tongue swelling Sulfamethoxazole-KacoibyemsfpLycdlwotengBznc45/02/2017 Other Reaction(s): Unknown Jahftkzqdmqa11/10/2024 Other Reaction(s): Swelling of Lip/Tongue/Throat, tongue swelling Medications MedicationSigDispense QuantityRefillsLast FilledStart DateEnd DateStatus aspirin 81 MG chewable tablet Chew 81 mg in the morning.Active atorvastatin (Lipitor) 40 MG tablet Take 40 mg by mouth Daily11/21/2023ctive furosemide (Lasix) 40 MG tablet Take 40 mg by mouth Daily11/21/2023ctive meclizine (Antivert) 25 MG tablet Take 25 mg by mouth as needed in the morning and 25 mg as needed in the evening. 12/05/2023ctive metFORMIN (Glucophage) 1000 MG tablet Take 1,000 mg by mouth in the morning and 1,000 mg in the evening. Take with meals.11/14/2023ctive metoprolol tartrate (Lopressor) 50 MG tablet Take 50 mg by mouth in the morning and 50 mg before bedtime.11/21/2023ctive potassium chloride CR (Klor-Con) 10 MEQ ER tablet Take 10 mEq by mouth in the morning and 10 mEq in the evening and 10 mEq before bedtime.08/30/2023ctive sertraline (Zoloft) 100 MG tablet Take 100 mg by mouth Daily11/21/2023ctive venlafaxine XR (Effexor XR) 75 MG 24 hr capsule Take 75 mg by mouth Daily Do not crush or chew.Active SUMAtriptan (Imitrex) 50 MG tablet 01/03/2024ctive Active Problems ProblemNoted DateDiagnosed DateOvarian cyst04/04/2024Flank pain02/06/2024cute lumbar myofascial dmgecg3602/06/20249343Kqereo85/13/2024PV (benign positional vertigo)02/06/20247410Oxejkuarkq38/13/7876Vsdxgdwe48/13/9090Ecucztee85/13/2024 Irregular arpqwt4902/06/20244110Wmlafkn29/13/2024Type 2 diabetes qhfihucr85/13/2024OSA (obstructive sleep apnea)02/06/20240967Ddgvweqpylut53/13/2024GAD (generalized anxiety disorder)02/06/2024bdominal pain02/26/2017 Resolved Problems ProblemNoted DateDiagnosed DateResolved DateCat wyhixap51 Vzohrvrnlpbtadd88Nausea Encounters DateTypeDepartmentCare WiuhMgbmokhmsnb21/29/2025bstract [facility] [address] [place] [address] David Villeda DO 06/11/2025 1:30 PM ESTProcedure Visit GABRIELA JAC[facility] [address] [place] [phone] David Villeda DO Pre-op examination; Menorrhagia with regular cycle; Pelvic pain in female; Abnormal uterine zdmxpany62/15/2025Telephone GABRIELA JACOB [address] [place] [address] David Villeda DO 05/07/2025 11:20 AM ESTOffice Visit GABRIELA Sun OBLOLA [address] [place] [phone] David Villeda, DO Menorrhagia with regular cycle5Bamboo flowsheet [facility] [address] [place] [address] David Villeda, DO from Last 3 Months Immunizations ImmunizationAdministration DatesNext DueInfluenza, injectable, MDCK, preservative free, jusgvlnofylz31/26/2017Influenza, injectable, quadrivalent 07/05/2022,07/26/2021,05/12/2019Influenza, injectable, quadrivalent, preservative free04/22/2020,05/01/2018,04/23/2015Tdap01/15/2021 Family History Medical HistoryRelationNameCommentsHeart failureFatherHypertensionFatherCancer MotherThyroid diseaseSisterRelationNameStatusCommentsFatherMotherSister Social History Tobacco UseTypesPacks/DayYears UsedDateSmoking Tobacco: NeverSmokeless Tobacco: Never Tobacco Cessation:Counseling Given: Not Answered Alcohol UseStandard Drinks/WeekCommentsNot Currently0 (1 standard drink = 0.6 oz pure alcohol)CommentsNoSex and Gender InformationValueDate RecordedSex Assigned at BirthNot on fileLegal ObyUksdmy05/15/2023 6:56 PM EDTGender Identity Not on fileSexual OrientationNot on file Last Filed Vital Signs Vital SignReadingTime TakenCommentsBlood Upbghkmv969/7406/11/2025 1:36 PM EST Zxlva118310/08/2024 10:21 AM EDTTemperature--Respiratory Rate--Oxygen Saturation-- Inhaled Oxygen Concentration--Llqvoe117 kg (365 lb)06/11/2025 1:36 PM ESTHeight 167.6 cm (5' 6 )05/07/2025 11:17 AM ESTBody Mass Index58.9105/07/2025 11:17 AM EST Plan of Treatment Health MaintenanceDue DateLast DoneCommentsInfluenza Vaccine (#1)02/24/2025 07/05/2022, 07/26/2021, 04/22/2020, Additional history kriqgfLpjqqugkq10/22/2026 04/16/2025Pap Smear, 03/27/2025, 03/27/2025ervical Cancer Dfxwnevcr51/02/2030HPV/Neiqhw19Pneumococcal Vaccine: Pediatrics (0 to 5 Years) and At-Risk Patients (6 to 64 Years)Aged OutNo longer eligible based on patient's age to complete this topic Procedures Procedure NamePriorityDate/TimeAssociated DiagnosisCommentsENDOMETRIAL BIOPSY Gevaici0506/11/2025 2:03 PM EST Menorrhagia with regular cycle Pelvic pain in female Abnormal uterine bleeding POCT , PGBELKxjxagx84/17/2025 1:48 PM EST Menorrhagia with regular cycle Pelvic pain in female Abnormal uterine bleeding PAP TEST, HUGSYMYOZmdrzdb17/02/2025 12:00 AM EDTfrom Last 3 Months Results * Endometrial biopsy (06/11/2025 2:03 PM EST) Narrative Aida Teixeira LPN - 06/11/2025 2:03 PM EST Aida Teixeira LPN 06/11/2025 2:31 PM Endometrial biopsy Date/Time: 06/11/2025 [...] complications Comments: ??Procedure comments: Authorizing ProviderResult TypeResult StatusCoremercedez Villeda DOIN CLINIC/BEDSIDE ORDERABLESFinal Result * POCT , urine manually resulted (06/11/2025 1:48 PM EST)ComponentValue Ref RangeTest MethodAnalysis TimePerformed AtPathologist SignaturePreg Test, UrNegativeNegativeSpecimen (Source)Anatomical Location / LateralityCollection Method / VolumeCollection TimeReceived YfxvZjani92/17/2025 1:48 PM EST Narrative Authorizing ProviderResult TypeResult StatusCorey Christiana DOPOINT OF CARE TEST ENTER/EDIT ORDERABLESFinal Result * PAP TEST, EXTERNAL (03/27/2025 12:00 AM EDT) Narrative Authorizing ProviderResult TypeResult StatusCorey Christiana DOLAB CYTOLOGY ORDERABLESFinal ResultPerforming OrganizationAddressCity/State/ZIP CodePhone Number EXTERNAL LAB from Last 3 Months Insurance Care Teams Team MemberRelationshipSpecialtyStart DateEnd Evelina Mera MD [address] [place] [phone] PCP - GeneralFamily Medicine10/08/24
--- OUTSIDE RECORDS SUMMARY | 2025-06-24 09:00 | XMS_ITS | Patient Health Record ---
Author Organization [facility] es Address [address] [place] [address] Care Team Providers Care Fur Blower Operator Name Role Phone JameeKirsten lamb Primary Care Provider Allergies Allergen (clinical drug ingredient) Drug/Non Drug Allergy documented on EMR Reaction Allergy Type Onset Date Status sulfamethoxazole / trimethoprim Bactrim anaphylaxis Hunter g Allergy ActivePenicillinrashDrug AllergyActiveSubstance with sulfonamide structure and antibacterial mechanism of action (substance)Sulfa AntibioticsanaphylaxisDrug AllergyActive Reason For Referral Reason PT SEEN REFERRAL R ECEIVED 03/19 GENERALIZED ANXIETY DISORDER, AFFECTING ABILITY TO WORK Diagnosis 1 Generalized anxiety disorder (F41.1) Referred Organization [facility] Referred Provider Vale Osborn Referred Address [address] [place], [place],[address],[place] [facility] Referral Priority Routine Medications Medication SIG (Take, Route, Frequency, Duration) Notes Start Date End Date Status metFORMIN HCl 1000 MG Tablet 1 tablet wi th a meal Orally twice a day (bid); Duration: 90 days ActivebuPROPion HCl ER (SR) 200 MG Tablet Extended Release 12 Hour1 tablet Orally twice a day; Duration: 90 daysActiveAtorvastatin Calcium 40 MG Tablet1 tablet Orally Once a day; Duration: 90 daysActiveOlmesartan Medoxomil-HCTZ 20- 12.5 MG Tablet1 tablet Orally Once a day; Duration: 90 daysActiveAspirin 81 81 MG Tablet Chewable1 tablet Orally Once a day; Duration: 90 daysActiveMetoprolol Tartrate 50 MG Tablet1 tablet with food Orally Twice a day; Duration: 90 days ActivetiZANidine HCl 4 MG Tablet1 tablet as needed Orally Three times a day; Duration: 90 daysPRNActiveSertraline HCl 100 MG Tablet1 tablet Orally Once a day; Duration: 90 days10/29/2021ctiveFurosemide 40 MG Tablet1 tablet Orally Once a day; Duration: 90 daysActive Immunizations Vaccine Route Administration Date Status Comme nts Influenza 3+ PRIVATE IM Intramuscular 07/26/2021 Administe red Influenza 3+ PRIVATEIM Hujgpwtapjcjw83/10/2023dministeredMODERNAUnknown 03/11/20217551GfsrwhqyujsdJISQKRLAlkmxqm74/19/1053CkjklfdwugrgVXAOKmemfgh13/23/2021 Administered Social History Tobacco Use: Social History Observation Description Date Details (start date - stop date) Never Smoker NA - NA Social History GeneralSocial InfoQuestionAnswerNotesTransition of Care:ER/UC/hospital since last office visit?NoDepression Screening (PHQ-9):Little interest or pleasure in doing thingsNearly every dayFeeling down, depressed, or hopelessNearly every day Trouble falling or staying asleep, or sleeping too muchNot at allFeeling tired or having little energyNot at allPoor appetite or overeatingNearly every day Feeling bad about yourself-or that you are a failure or have let yourself or your family downSeveral daysTrouble concentrating on things, such as reading the newspaper or watching televisionNot at allMoving or speaking so slowly that other people could have noticed. Or the opposite being so fidgetyor restless that you have been moving around a lot more than usualNot at allThoughts that you would be better off , or of hurting yourself in some wayNot at allTotal Cjuuw61YtzityrczpphcMpfawwiq DepressionSubstance abuse/mental health issues of patient/familyPatient -DeniesAbility to understand healthcare/treatmentPatient: GoodTobacco Screen:Are you a:never smokerSocial/Support Concerns:Patient:No Alcohol Screening:Did you have a drink containing alcohol in the past year?No Jcihib9WnvuhjfisrexzgSjabawozOmyzsoxnc affecting healthPoor/Risky Behaviors: Denies-Communication Barrier:Language Barrier?:NoFood Insecurity ScreeningSocial InfoQuestionAnswerNotesFood Insecurity ScreeningWithin the last 12 months, have you been worried about your food running out before you received money to buy more?NoWithin the last 12 months, did the food you buy not last, and you didn't have money to buy more?NoWithin the last 12 months, have you had any difficulty affording to eat balanced meals including all food groups (fruits, vegetables, protein, and whole grains)?No Problems Problem Type SNOMED Code ICD Code Onset Dates Problem Status W/U Status Risk Notes Problem Morbid obesity (disorder) (48823 6002) Morbid (severe) obesity due to excess calories (E66.01) ActiveconfirmedProblemChronic pain (30918704)Other chronic pain (G89.29)Active confirmedProblemObstructive sleep apnea (42646447)Obstructive sleep apnea (G47.33)ActiveconfirmedProblemPrimary hypertension (21303743)Primary hypertension (I10)ActiveconfirmedProblemType II diabetes mellitus without complication (191816055)Type 2 diabetes mellitus without complication, without long-term current use of insulin (E11.9)ActiveconfirmedProblemBody mass index 40+ - morbidly obese (927370582)BMI 60.0-69.9, adult (Z68.44)Activeconfirmed ProblemGeneralized anxiety disorder (93675274)Generalized anxiety disorder (F41.1)ActiveconfirmedProblemMajor depression, single episode (63232358)Major depressive disorder, remission status unspecified, unspecified whether recurrent (F32.9)ActiveconfirmedProblemCOVID-19 (061287372)COVID-19 (U07.1)Activeconfirmed ProblemLow back pain (173599969)Low back pain, unspecified (M54.50)Active confirmedProblemBody mass index 40+ - severely obese (457539193)Body mass index [BMI] 40.0-44.9, adult (Z68.41)Activeconfirmed Encounters Encounter Location Date Provider Diagnosis [facility] [address] [place] [address] 03/27/2025 Kirsten Mancuso Generalized anxiety disorder F41.1 [facility] [address] [place] [address] 04/03/2025 Nilsonunruly Jamee Generalized anxiety disorder F41.1 Assessments Encounter Date Diagnosis (ICD Code) Assessment Notes Treatment Notes Treatment Clinical Notes Section Notes 03/27/2025 Generalized anxiety disorder (IC D-10 - F41.1) 04/03/2025Generalized anxiety disorder (ICD-10 - F41.1) Plan Of Treatment No Information Insurance Providers Payer Name Payer Address Payer Phone Subscriber Number Group Number Insured Name Patient Relationship to Insured Coverage Start Date Coverage End Date [facility] [address] [place] [address] [id number] TUCKER AMDEJONSelf - patient is the [id number] 2024 [facility] [address] [place] [id number], AMANDASelf - patient is the [id number] 2024 [employer] [place] MedicaidPO [address] [place] [id number], AMANDASelf - patient [facility] the [facility] [address] [place] [id number], AMANDASelf - patient is the [id number] [address] [place] [id number], AMANDASelf - patient is the [id number] Medical (General) History Medical History History ICD Code Pre-diabetes HypertensionAnxiety/DepressionSleep apneaChronic Back PainSurgical History Surgery Date(Month/Year) BL Carpal tunnel repair Hospitalization History Reason Date(Month/Year) Childbirth
--- OUTSIDE RECORDS SUMMARY | 2025-06-24 09:03 | XMS_ITS | CCD ---
Author Organization [facility] Care Team Providers Care Package Center Supervisor Name Role Phone MARK MARTELL Attending Unavailable JASBIR, MARK Consulting Unavailable JASBIR, MARK Primary Care Unavailable JASBIR, MARK Admitting Unavailable TAY, MAXIMINO Admitting Unavailable GILBERT, DR KAYLYN Lemus Consulting Unavailable TAY, MAXIMINO Attending Unavailable REQUEST, NONE LISTED Primary Care Unavaila ble TAY, MAXIMINO Consulting Unavailable REQUEST, NONE LISTED Primary Care Unavaila ble BECKI, DR ANA PAULA Medrano Consulting Unavailable TAY, AMXIMINO Admitting Unavailable TAY, MAXIMINO Attending Unavailable CROSS, MAXIMINO Consulting Unavailable JASBIR, MARK Consulting Unavailable JASBIR, MARK Attending Unavailable REQUEST, NONE LISTED Primary Care Unavaila ble JASBIR, MARK Admitting Unavailable JASBIR, MARK Attending Unavailable JASBIR, MARK Consulting Unavailable ROSS, MARK Primary Care Unavailable ROSS, MARK Admitting Unavailable Dominique Nascimento Unavailable Samreen Reed Unavailable [facility] Services Primary Care Provider MIRNA Le Attending Provider [phone] MD Kate Groves Attending Provider [phone] MD Adry Crockett Other Provider DO Gris Phillip Attending Provider NO FAMILY, PHYSICIAN Primary Care Provider Unava ilable DO Say Anderson Attending Provider Nicole Nelson Unavailable [facility], Services Primary Care Provider MIRNA Spangler Emergency Provider Myriam Spence Unavailable [facility] Services Primary Care Provider MIRNA Spangler Emergency [...] Attending Provider Mendez Doherty MD Attending Provider April Ahumada MD Primary Care Provider April Ahumada MD Attending Provider Bartolo Lyons PA-C Emergency Provider Imelda Hutchins CMA Attending Provider Unavaila April Taylor MD Primary Care Provider April Ahumada MD Primary Care Provider Bennett LYN-C, Kajal Attending Provider [phone] Ely Dodge MD Attending Provider Adonis Ferguson APRN Attending Provider Bartolo Lyons Attending Unavailable April Ahumada Primary [...] Unavailable April Ahumada MD Primary Care Provider [phone] Bartolo Lyons PA-C Emergency Provider Imelda Hutchins CMA Attending Provider Unavaila April Taylor MD Attending Provider [phone] Bennett LYN-C, Kajal Attending Provider Ely Dodge MD Attending Provider Adonis Ferguson APRN Attending Provider Brigitte Busch DNP Attending Provider LIAM WAGGONER Attending Unavailable LIAM WAGGONER Attending Unavailable DAVID VILLEDA Attending Unavailable April Ahumada MD Primary Care Provider [phone] Allergies Allergy ClassificationReported Allergen(s)Allergy TypeDate of OnsetReaction(s) FacilityDihydrofolate Reductase Inhibitors (antibiotic) (2 sources)TrimethoprimDrug Pnnykgg04-67-0096Dumbwazy of Lip/Tongue/Throat, tongue swellingSouthview Medical CenterPenicillins (antibiotic) (4 sources)PenicillinDrug Veqqadp92-54-8147mnwdBekltdqwwSouthview Medical Center Sulfonamides (antibiotic) (2 sources)SulfamethoxazoleDrug Zkmelvo42-53-8253Xnctofsf of Lip/Tongue/Throat, tongue swellingSouthview Medical Center (13 sources)PenicillinDrug AllergyrashNorth Cameron Regional Medical Center [employer] Other (13 sources)Sulfamethoxazole / TrimethoprimDrug Allergytongue swellingNortSharon Regional Medical Center [employer] Other (20 sources)Penicillins; Translations: [PENICILLINS]Allergy to substance 13-79-9433FgksQibpdgvlgAultman Orrville Hospital (20 sources)Sulfamethoxazole; Translations: [sulfamethoxazole]Drug Allergy 04-11-1435Yeiuleeo of Lip/Tongue/Throat, Swelling of Lip/Tongue/Throat, tongue swellingSouthview Medical Center (20 sources)Trimethoprim; Translations: [trimethoprim]Drug Nvnnclb77-09-0135 Swelling of Lip/Tongue/Throat, Swelling of Lip/Tongue/Throat, tongue swelling [facility] (20 sources)Penicillin; Translations: [penicillin V]Drug Ezuwwwh66-04-9083fmmj [facility] (20 sources)Sulfamethoxazole / Trimethoprim; Translations: [SULFAMETHOXAZOLE-TRIMETHOPRIM]Drug Mdwedwe25-42-5935XzwaohnrrnoSDJW Healthcare (4 sources)Sulfonamides (Antibiotic); Translations: [SULFA (SULFONAMIDE ANTIBIOTICS)]Propensity to adverse reactions to hdzc85-11-9115Imficctmwyg [facility] Medications Current Medications MedicationDrug Class(es)DatesSig (Normalized)Sig (Original)0.25 MG, 0.5 MG Dose 3 ML semaglutide 0.68 MG/ML Pen Injector [Ozempic] (3 sources)Ozempic (0.25 or 0.5 MG/DOSE) 2 MG/3ML as directed Subcutaneous ActiveAspir-81 (13 sources)Aspir-81 Activeaspirin 81 mg oral tablet (20 sources)Platelet Aggregation Inhibitor, Nonsteroidal Anti-inflammatory Drug Start: 93-20-6252rrju 1 tablet by mouth once dailyaspirin 81 MG chewable tablet Chew 81 mg in the morning. Activeatorvastatin 40 mg oral tablet (20 sources)HMG-CoA Reductase InhibitorStart: 02-12-2024 End: 32-01-3832nlze 1 tablet by mouth once dailyAtorvastatin 40 mg tablet Discontinued 0 .ROUTE .COMPLEX 90 3 May 14, 2024 12:50pm April 07, 2025 10:29am TAKE 1 TABLET BY MOUTH DAILYStart: 92-64-4523uvcs 1 tablet by mouth once dailyAtorvastatin Active 0 .ROUTE .COMPLEX 90 February 12, 2024 8:29am TAKE 1 TABLET BY MOUTH DAILYStart: 08-14-2023 End: 21-50-4624nqxe 1 tablet by mouth once dailyatorvastatin (Lipitor) 40 MG tablet Take 40 mg by mouth Daily 11/21/2023 ActiveStart: 08-17-2021 End: 79-12-3767Likgfhdhsqnm 40 mg tablet Discontinued MG August 17, 2021 12:00am June 26, 2022 2:54pmStart: 08-17-2021 End: 77-29-0922Amouhebqlsik Discontinued MG TABLET August 17, 2021 1:00am June 26, 2022 3:54pmStart: 08-02-2020 End: 32-39-1356hgfi 1 tablet by mouth once dailyAtorvastatin 10 mg tablet Discontinued 10 MG PO Daily August 02, 2020 12:00am August 17, 2021 2:00pmAtorvastatin Calcium Activebenzonatate 200 mg oral capsule (4 sources)Non-narcotic AntitussiveStart: 46-04-7026jyyg 1 capsule by mouth every eight hoursBenzonatate 200 MG 1 capsule Orally Three times a day for 10 day(s) May, ActivebusPIRone hydrochloride 5 mg oral tablet (20 sources)Start: 07-00-6009bnme 1 tablet by mouth twice dailyStart: 10-03-2024 End: 26-85-6751gmnj 1 tablet by mouth twice dailyBuspirone 5 mg tablet Discontinued 5 MG PO Twice daily 60 30 0 March 03, 2025 11:18am March 14, 2025 8:39amcefdinir 300 mg oral capsule (7 sources)Cephalosporin AntibacterialStart: 29-73-9017ulmz 1 capsule by mouth every twelve hoursCefdinir 300 MG 1 Capsule Orally bid for 10 days Mar, ActiveStart: 41-37-9883Asxkpctn 300 MG as directed Orally BID for 7 days Mar, Activefamotidine 40 mg oral tablet (1 source)Histamine-2 Receptor AntagonistStart: 58-14-7852xlee 1 tablet by mouth once daily at bedtimefurosemide 40 mg oral tablet (20 sources)Loop DiureticStart: 18-53-8819thnt 1 tablet by mouth once daily Start: 08-17-2021 End: 75-77-2957ibij 1 tablet by mouth once dailyfurosemide (Lasix) [...] mg oral tablet (20 sources)AntiemeticStart: 12-05-2023 End: 89-70-3212brnxwudcv (Antivert) 25 MG tablet Take 25 mg by mouth as needed in the morning and 25 mg as needed in the evening. 12/05/2023 ActivemetFORMIN hydrochloride 1000 mg oral tablet (20 sources)BiguanideStart: 02-12-2024 End: 33-31-9205iovy 1 tablet by mouth twice dailyMetformin 1,000 mg tablet Discontinued 0 .ROUTE .COMPLEX 180 1 November 14, 2024 10:27am March 10:29am TAKE 1 TABLET BY MOUTH TWICE DAILYStart: 11-14-2023 End: 27-65-9084xgrs 1 tablet by mouth in the morningmetFORMIN (Glucophage) 1000 MG tablet Take 1,000 mg by mouth in the morning and 1,000 mg in the evening. Take with meals. 11/14/2023 ActiveStart: 08-14-2023 End: 13-08-5849kjee 1 tablet by mouth twice dailyMetformin 1,000 mg tablet Discontinued 1000 MG PO Twice daily 180 0 August 14, 2023 2:28pm September 19, 2023 12:09pmStart: 08-02-2020 End: 96-82-0602Ldbjpxrai 850 mg tablet Discontinued 1000 MG PO Twice daily August 02, 2020 12:00am November 14, 2023 3:30pmStart: 08-02-2020 End: 76-23-5575dnra 1000 mg by mouth twice dailyMetformin Discontinued [...] ActivemethylPREDNISolone 4 mg oral tablet (3 sources)CorticosteroidStart: 66-42-8879cngvmtIREYHDQzntki 4 MG as directed Orally for daily dose take half with breakfast, half with dinner for 6 days Mar, Activeomeprazole 20 mg delayed release oral capsule (5 sources)Proton Pump InhibitorStart: 45-46-7636igyq 1 capsule by mouth once dailyozempic (0.25 or 0.5 mg/dose) 2 mg/3ml solution pen-injector (3 sources)Ozempic (0.25 or 0.5 MG/DOSE) 2 MG/3ML as directed Subcutaneous ActivePotassium (11 sources)Potassium Activepotassium chloride 10 meq extended release oral tablet (20 sources)Start: 08-30-2023 End: 12-32-9177ntzk 1 tablet by mouth three times daily at mealtimePotassium Chloride 10 mEq tablet extended release Discontinued 0 .ROUTE .COMPLEX 270 1 May 14, 2024 12:51pm November 25, 2024 12:45pm TAKE 1 TABLET BY MOUTH THREE TIMES DAILY WITH FOODStart: 40-18-9379ketc 1 tablet by mouth in the morning, then take 1 tablet by mouth in the evening, then take 1 tablet by mouth at bedtimepotassium chloride CR (Klor-Con) 10 MEQ ER tablet Take 10 mEq by mouth in the morning and 10 mEq inthe evening and 10 mEq before bedtime. 08/30/2023 ActiveStart: 01-15-2021 End: 96-68-5770hyif 1 capsule by mouth three times dailyPotassium Chloride 10 mEq capsule, extended release Discontinued 10 MEQ PO Three times daily January 142020 11:00pm August 30, 2023 2:27pmtake 1 tablet by mouth three times daily at mealtimePotassium Chloride ER 10 MEQ 1 tablet with food Orally three times daily for 90 days Activesertraline 100 mg oral tablet (20 sources)Serotonin Reuptake InhibitorStart: 78-44-8870Gzgba: 02-12-2024 End: 60-90-0848fell 1 tablet by mouth once dailySertraline 100 mg tablet Discontinued 0 .ROUTE .COMPLEX 90 0 March 03, 2025 11:18am April 07, 2025 10:21am TAKE 1 TABLET BY MOUTH DAILYStart: 10-29-2021 End: 47-28-4795mvyq 1 tablet by mouth once dailysertraline (Zoloft) 100 MG tablet Take 100 mg by mouth Daily 11/21/2023 ActiveSUMAtriptan 50 mg oral tablet (20 sources)Serotonin-1b and Serotonin-1d Receptor AgonistStart: 01-18-2024 End: 40-16-6410ybdo 1 tablet by mouth every two hours as needed for headache, then take 4 tablets by mouth every twenty-four hours as needed for headache Start: 74-87-8805LWMQfsditld (Imitrex) 50 MG tablet 01/03/2024 ActiveStart: 01-03-2024 End: 28-81-3834elxp 4 tablets by mouth every twenty-four hours as needed for headacheSumatriptan Succinate 50 mg tablet Discontinued 50 MG PO Every 2 hours as needed for migraine headache 10 0 January 02, 2024 11:00pm January 18, 2024 10:37am do not exceed 4 doses per 24 hrsTirzepatide (Weight Loss) (4 sources)Start: 84-59-8836Knltw: 04-23-2025 End: 14-83-9557Lpdpitbskho (Weight Loss) (Zepbound) 2.5 mg/0.5 mL pen injector Discontinued 2.5 MG SUBCUT every week 2.5 30 0 April 22, 2025 11:00pm April 28, 2025 1:40pm brandon G47.33 for 4 weeksStart: 69-05-3100Tsdxewyrpxw (Weight Loss) (Zepbound) 2.5 mg/0.5 mL pen injector Active 2.5 MG SUBCUT every week 2.530 0 April 22, 2025 11:00pm brandon G47.33 for 4 weeks Complies with drug therapyStart: 98-21-1233Rfklwobdmvl (Weight Loss) (Zepbound) 2.5 mg/0.5 mL pen injector Active 2.5 MG SUBCUT every week 2.530 0 April 23, 2025 12:00am brandon G47.33 for 4 weeks Complies with drug therapytiZANidine 4 mg oral tablet (14 sources)Central alpha-2 Adrenergic AgonistStart: 66-04-7858swxs 1 tablet by mouth three times daily as neededStart: 47-90-3881onoz 1 tablet by mouth every eight hourstiZANidine HCl 4 MG 1 tablet as needed Orally Three times a day for 3 days Feb, Jizqya19 hr topiramate 25 mg extended release oral capsule (4 sources)Start: 73-05-0078mswn 1 capsule by mouth once dailyStart: 04-07-2025 topiramate (TOPAMAX) 25 mg tablet One PO qhs for 1-2 weeks then Increase BIID for another 1-2 weekdthen TID for one to two week then 2 tablets BID 70 tablet 12 04/07/2025 Active Completed/Discontinued Medications MedicationDrug Class(es)DatesSig (Normalized)Sig (Original)amLODIPine 5 mg oral tablet (20 sources)Dihydropyridine Calcium Channel BlockerStart: 01-15-2021 End: 53-91-6506jqve 1 tablet by mouth once dailyAmlodipine 5 mg tablet Discontinued 5 MG PO Daily January 14, 2021 11:00pm August 17, 2021 2:00pm End: 73-25-9426ddbn 1 tablet by mouth once dailyamLODIPine (NORVASC) 10 mg tablet Take 10 mg by mouth daily. 03/27/2025 Discontinued (Therapy completed) amLODIPine Besylate Activeazithromycin 250 mg oral tablet (20 sources)Macrolide AntimicrobialStart: 05-13-2024 End: 81-22-9938Nsnnxizofznw 250 mg tablet Discontinued 0 PO .COMPLEX 6 0 May 13, 2024 12:00am August 19, 2024 3:03pm For 250 mg dose pack: take 500 mg today (day 1), then 250 mg for 4 days (days 2-5) POStart: 01-15-2021 End: 65-13-0562illf 2-5 tablets by mouth once dailyAzithromycin 250 mg tablet Discontinued 0 PO .COMPLEX 6 0 January 14, 2021 11:00pm August 17, 2021 2:00pm take 500 mg today (day 1), then 250 mg for 4 days (days 2-5)12 hr buPROPion hydrochloride 200 mg extended release oral tablet (20 sources)AminoketoneStart: 01-31-0301icmf 1 tablet by mouth twice daily Bupropion Hcl Active 0 .ROUTE .COMPLEX 60 March 15, 2024 8:45am TAKE 1 TABLET BY MOUTH TWICE DAILYStart: 02-12-2024 End: 21-58-0670ghjm 1 tablet by mouth twice dailyBupropion Hcl Discontinued 0 .ROUTE .COMPLEX 60 February 12, 2024 8:29am March 15, 2024 8:45am TAKE 1 TABLET BY MOUTH TWICE DAILYStart: 01-18-2024 End: 99-23-8946kllk 1 tablet by mouth twice dailyBupropion Hcl 200 mg tablet sustained-release 12 hr Discontinued 0 .ROUTE .COMPLEX 180 May 14, 2024 12:51pm October 03, 2024 10:09am TAKE 1 TABLET BY MOUTH TWICE DAILYStart: 01-18-2024 End: 61-20-0057kdop 1 tablet by mouth twice dailyBupropion Hcl Discontinued 0 .ROUTE .COMPLEX 60 January 18, 2024 11:37am February 12, 2024 8:30am TAKE 1 TABLET BY MOUTH TWICE DAILYStart: 11-21-2023 End: 48-20-5435qbwr 1 tablet by mouth every twelve hours in the morningbuPROPion SR (Wellbutrin SR) 200 MG 12 hr tablet Take 200 mg by mouth in the morning and 200 mg before bedtime. 11/21/2023 04/04/2024 Discontinued (Duplicate order) Start: 09-19-2023 End: 25-00-1721pmzh 1 tablet by mouth twice dailyBupropion Hcl 200 mg tablet sustained-release 12 hr Discontinued 200 MG PO Twice daily 60 September 19, 2023 12:09pm November 21, 2023 1:09pmStart: 08-02-2020 End: 71-60-8354uafr 1 tablet by mouth twice dailyBupropion Hcl 100 mg tablet sustained-release 12 hr Discontinued 150 MG PO Twice daily August 02, 2020 12:00am September 19, 2023 9:13am End: 60-41-4552cvmfdhhnv HCl (WELLBUTRIN ORAL) Take by mouth. 03/27/2025 Discontinued (Therapy completed)bupropion HCl (WELLBUTRIN ORAL) Take by mouth. Activetake 1 tablet by mouth every twenty-four hoursbuPROPion HCl ER (SR) 200 MG 1 tablet in the morning Orally Once a day ActiveWellbutrin ActiveBupropion Hcl 200 mg tablet sustained-release 12 hr (15 sources)Start: 03-15-2024 End: 06-87-7993eqhn 1 tablet by mouth twice dailyBupropion Hcl 200 mg tablet sustained-release 12 hr Discontinued 0 .ROUTE .COMPLEX 60 March 15, 2024 8:45am April 17, 2024 3:45pm TAKE 1 TABLET BY MOUTH TWICE DAILYStart: 03-15-2024 End: 26-63-2594xzwv 1 tablet by mouth twice dailyBupropion Hcl 200 mg tablet sustained-release 12 hr Discontinued 0 .ROUTE .COMPLEX 60 March 15, 2024 7:45am April 17, 2024 2:45pm TAKE 1 TABLET BY MOUTH TWICE DAILYStart: 02-12-2024 End: 70-32-4964wjhy 1 tablet by mouth twice dailyBupropion Hcl 200 mg tablet sustained-release 12 hr Discontinued 0 .ROUTE .COMPLEX 60 February 12, 2024 8:29am March 15, 2024 8:45am TAKE 1 TABLET BY MOUTH TWICE DAILYStart: 02-12-2024 End: 10-21-6472uukv 1 tablet by mouth twice dailyBupropion Hcl 200 mg tablet sustained-release 12 hr Discontinued 0 .ROUTE .COMPLEX 60 February 12, 2024 7:29am March 15, 2024 7:45am TAKE 1 TABLET BY MOUTH TWICE DAILYStart: 01-18-2024 End: 86-09-4675mlac 1 tablet by mouth twice dailyBupropion Hcl 200 mg tablet sustained-release 12 hr Discontinued 0 .ROUTE .COMPLEX 60 January 18, 2024 11:37am February 12, 2024 8:30am TAKE 1 TABLET BY MOUTH TWICE DAILYStart: 01-18-2024 End: 63-44-8586lous 1 tablet by mouth twice dailyBupropion Hcl 200 mg tablet sustained-release 12 hr Discontinued 0 .ROUTE .COMPLEX 60 January 18, 2024 10:37am February 12, 2024 7:30am TAKE 1 TABLET BY MOUTH TWICE DAILYcefuroxime 500 mg oral tablet (5 sources)Cephalosporin AntibacterialStart: 12-82-4629nsvr 1 tablet by mouth every twelve hoursCefuroxime Axetil 500 MG 1 tablet Orally every 12 hrs for 7 days Feb, Not-Takingciprofloxacin 500 mg oral tablet (13 sources)Quinolone AntimicrobialStart: 12-25-2024 End: 55-78-5799rffd 1 tablet by mouth twice dailyCiprofloxacin Hcl 500 mg tablet Discontinued 500 MG PO Twice daily 10 December 24, 2024 11:00pm February 06, 2025 5:02pmcyclobenzaprine hydrochloride 10 mg oral tablet (20 sources)Muscle RelaxantStart: 08-17-2021 End: 55-18-4282fzcq 1 tablet by mouth three times daily as needed for muscle spasmsCyclobenzaprine 10 mg tablet Discontinued 10 MG PO Three times daily as needed for muscle spasm 14 August 17, 2021 12:00am September 19, 2023 12:09pmdexamethasone 1 mg/ml / tobramycin 3 mg/ml ophthalmic suspension (5 sources)Aminoglycoside Antibacterial, CorticosteroidStart: 48-59-7981bdtm 1 drop(s) into the eye(s) three times dailyTobraDex 0.3-0.1 % 1 drop into affected eye Ophthalmic Three times a day for 5 days Dec, Not-Taking dextromethorphan hydrobromide 1.5 mg/ml / pyrilamine maleate 1.5 mg/ml oral solution (5 sources)Uncompetitive K-zesmkh-A-aspartate Receptor Antagonist, Sigma-1 AgonistStart: 82-28-2974Zkrlkz DM 7.5-7.5 MG/5ML 10 ml Orally every 6-8 hours as needed for 8 days Feb, Not-Takingescitalopram 20 mg oral tablet (20 sources)Serotonin Reuptake InhibitorStart: 08-02-2020 End: 48-60-5374ifoh 1 tablet by mouth once dailyEscitalopram Oxalate 20 mg tablet Discontinued 20 MG PO Daily August 02, 2020 12:00am September 19, 2023 12:08pmfluticasone propionate 0.05 mg/actuat metered dose nasal spray (20 sources)CorticosteroidStart: 12-11-2023 End: 40-97-3532ezjt 1 spray(s) nasal route once dailyFluticasone Propionate (Flonase Allergy Relief) 50 mcg/actuation spray,suspension Discontinued 2 SPRAY INTRANASAL Daily 16 0 December 10, 2023 11:00pm May 14, 2024 12:52pm administer into each nostrilStart: 14-71-7300wkyn 1 spray(s) nasal route once dailyFluticasone Propionate 50 MCG/ACT 1 spray in each nostril Nasally Once a day for 30 days Mar, ActiveStart: 82-12-5972nrng 1 spray(s) nasal route once dailyFluticasone Propionate 50 MCG/ACT 1 spray in each nostril Nasally Once a day for 30 days Mar, ActivehydroCHLOROthiazide 25 mg oral tablet (20 sources)Thiazide DiureticStart: 08-02-2020 End: 02-33-8022spjs 1 tablet by mouth once dailyHydrochlorothiazide 25 mg tablet Discontinued 25 MG PO Daily August 02, 2020 12:00am August 17, 2021 2:00pmhydroCHLOROthiazide Not-TakinghydroCHLOROthiazide 12.5 mg / olmesartan medoxomil 20 mg oral tablet (20 sources)Thiazide Diuretic, Angiotensin 2 Receptor BlockerStart: 08-26-2024 End: 46-55-6523pbzx 1 tablet by mouth once dailyOlmesartan-Hydrochlorothiazide 20-12.5 mg tablet Discontinued 0 .ROUTE .COMPLEX 90 0 December 20, 2024 7:26am March 17, 2025 7:47am TAKE 1 TABLET BY MOUTH DAILYStart: 05-13-2024 End: 88-16-5036wwdl 1 tablet by mouth once dailyOlmesartan-Hydrochlorothiazide 20-12.5 [...] sources)Nonsteroidal Anti-inflammatory Drug, Cyclooxygenase InhibitorStart: 08-17-2021 End: 95-72-5447xaft 1 tablet by mouth every six hours as needed for pain Ketorolac 10 mg tablet Discontinued 10 MG PO Q6H as needed for pain 15 0 August 17, 2021 12:00am June 26, 2022 2:54pmlidocaine 0.05 mg/mg medicated patch (20 sources)Antiarrhythmic, Amide Local AnestheticStart: 08-17-2021 End: 85-10-1583jyolc 1 dose topically once daily as needed for painLidocaine 5 % adhesive patch,medicated Discontinued 1 PATCH TOPICAL Daily as needed for pain 30 0 August 17, 2021 12:00am April 01, 2024 10:32am leave on most painful area for up to 12 hrsmetoprolol tartrate 50 mg oral tablet (20 sources)beta-Adrenergic BlockerStart: 02-12-2024 End: 82-82-5137emcg 1 tablet by mouth twice dailyMetoprolol Tartrate 50 mg tablet Discontinued 0 .ROUTE .COMPLEX 180 0 August 12, 2024 3:11pm November 14, 2024 10:27am TAKE 1 TABLET BY MOUTH TWICE DAILYStart: 08-02-2020 End: 07-67-1212ggmo 1 tablet by mouth in the morningmetoprolol tartrate (Lopressor) 50 MG tablet Take 50 mg by mouth in the morning and 50 mg before bed time. 11/21/2023 Activenaproxen 500 mg oral tablet (12 sources)Nonsteroidal Anti-inflammatory DrugStart: 02-06-2025 End: 08-22-3877uvai 1 tablet by mouth twice daily as needed for painNaproxen (Naprosyn) 500 mg tablet Discontinued 500 MG PO Twice daily as needed for pain 20 0 2024 11:00pm March 14, 2025 8:39amondansetron 4 mg disintegrating oral tablet (20 sources)Serotonin-3 Receptor AntagonistStart: 12-11-2023 End: 99-36-1101wxgg 1 tablet by mouth every eight hours as needed for nausea and vomitingOndansetron 4 mg tablet,disintegrating Discontinued 4 MG PO Q8H as needed for nausea and vomiting 30 0 December 19, 2023 10:44am May 14, 2024 12:52pmpredniSONE 20 mg oral tablet (20 sources)Start: 06-26-2022 End: 60-36-1220qpty 2 tablets by mouth once daily at mealtimePrednisone 20 mg tablet Discontinued 40 MG PO Daily June 26, 2022 12:00am September 182:09pm administer with food or milkStart: 06-26-2022 End: 15-97-4316nblb 40 mg by mouth once daily at mealtimePrednisone Discontinued 40 MG PO Daily June 26, 2022 1:00am September 19, 2023 1:09pm administer with food or milkSemaglutide (17 sources)Start: 08-19-2024 End: 58-16-5606Bawleuhzlbp (Ozempic) 0.25 mg or 0.5 mg (2 mg/3 mL) pen injector Discontinued 0.25 MG SUBCUT every week 3 2 August 19, 2024 12:00am February 06, 2025 5:03pm for 4 weeksStart: 08-19-2024 End: 45-69-0521Vffzogeycba (Ozempic) 0.25 mg or 0.5 mg (2 mg/3 mL) pen injector Discontinued 0.25 MG SUBCUT every week 3 2 August 19, 2024 1:00am February 06, 2025 6:03pm for 4 weeksStart: 08-19-2024 End: 87-11-8190Wolzjqngfbv (Ozempic) 0.25 mg or 0.5 mg (2 mg/3 mL) pen injector Discontinued 0.25 MG SUBCUT every week 3 August 19, 2024 1:00am February 06, 2025 6:03pm for 4 weeksStart: 20-62-4962Pksmpedeqzp (Ozempic) 0.25 mg or 0.5 mg (2 mg/3 mL) pen injector Active 0.25 MG SUBCUT every week 3Febru2024 1:00am for 4 weeks Complies with drug therapyStart: 09-59-1634Ehmkyfglnda (Ozempic) 0.25 mg or 0.5 mg (2 mg/3 mL) pen injector Active 0.25 MG SUBCUT every week 3Febru2024 1:00am for 4 weeksStart: 09-27-2598Uolofygdhiu (Ozempic) 0.25 mg or 0.5 mg (2 mg/3 mL) pen injector Active 0.25 MG SUBCUT every week 3Februgloucester 2024 12:00am for 4 weeksSemaglutide (Weight Loss) (9 sources)Start: 02-25-2025 End: 39-12-0903Pbgtlhzhmqs (Weight Loss) (Wegovy) 0.25 mg/0.5 mL pen injector Discontinued 0.25 MG SUBCUT every week 2 0 February 24, 2025 11:00pm April 07, 2025 10:08am administer weeks 1 through 4 of therapyStart: 02-25-2025 End: 59-27-7696Bsvhlobuuyc (Weight Loss) (Wegovy) 0.25 mg/0.5 mL pen injector Discontinued 0.25 MG SUBCUT every week 2 0 February 25, 2025 12:00am April 07, 2025 11:08am administer weeks 1 through 4 of therapyStart: 02-25-2025 End: 53-26-7910Gaufgftuvzk (Weight Loss) (Wegovy) 0.25 mg/0.5 mL pen injector Discontinued 0.25 MG SUBCUT every week 2 February 25, 2025 12:00am April 07, 2025 11:08am administer weeks 1 through 4 of therapyStart: 02-25-2025 Start: 98-76-4542Cqsfbeuwrar (Weight Loss) (Wegovy) 0.25 mg/0.5 mL pen injector Active 0.25 MG SUBCUT every week 2 February 25, 2025 12:00am administer weeks 1 through 4 of therapy Complies with drug therapyToradol 30 mg/ml (20 sources)Start: 99-34-9300Dfuljtr 30 mg/ml Dec, 30 mgStart: 80-72-5412Pcbuszm 30 mg/ml Feb, 60 mg24 hr venlafaxine 75 mg extended release oral capsule (20 sources)Serotonin and Norepinephrine Reuptake InhibitorStart: 08-17-2021 End: 75-25-9039hsht 1 capsule by mouth once dailyVenlafaxine 75 mg capsule,extended release 24hr Discontinued 75 MG PO Daily August 17, 2021 12:00am April 17, 2024 2:26pmStart: 04-50-6151Ejcjcisndcv Active MG PO August 17, 2021 1:00am Problems Active Problems Problem ClassificationProblemDateDocumented DateEpisodic/ChronicAnxiety disorders (20 sources)Generalized anxiety disorder; Translations: [Generalized anxiety disorder]Onset: 138405-60-3242ZohfpaeXicmnyobj and vision defects (20 sources)Eye / vision finding; Translations: [Unspecified visual disturbance] 72-81-8043LssbfhskYrhmlyzp of urinary tract (8 sources)History of calculus of kidney; Translations: [Personal history of urinary calculi]60-64-1003PnnvdhttUoysgmhnag associated with dizziness or vertigo (20 sources)Active cochlear Meniere's disease; Translations: [Meniere's disease, right ear]Onset: 583467-09-7735GcyihteIzjcdcbpcz associated with dizziness or vertigo (1 source)Conditions associated with dizziness or vertigoDeficiency and other anemia (5 sources)Anemia, unspecified; Translations: [Anemia, unspecified]11-02-2023 EpisodicDeficiency and other anemia (18 sources)Iron deficiency anemia; Translations: [Iron deficiency anemia, unspecified]48-90-8014WwfsscvkZtdgzrnbhm and other anemia (8 sources)Deficiency and other anemiaDiabetes mellitus with complications (20 sources)Type 2 diabetes mellitus; Translations: [Type 2 diabetes mellitus with hyperglycemia]Onset: 33-56-6185OjqrwiuYoppkfab mellitus without complication (8 sources)Type 2 diabetes mellitus without complications; Translations: [Diabetes mellitus without mention ofcomplication, type II or unspecified type, not stated as uncontrolled]65-67-4434KiuvcpaMulrpngva of lipid metabolism (9 sources)Dyslipidemia; Translations: [Hyperlipidemia, unspecified]Chronic Esophageal disorders (14 sources)Gastroesophageal reflux disease; Translations: [Gastro-esophageal reflux disease without esophagitis]Onset: 249805-49-0628OqmmgarIdndpbgbe hypertension (20 sources)Essential (primary) hypertension; Translations: [Essential hypertension]Onset: 19-17-7993HaekqbyBvfsanyx (20 sources)Glaucoma; Translations: [Unspecified glaucoma]Onset: 02-06-2024 76-34-9447KmbgywnDzkfpqje; including migraine (2 sources)Migraine; Translations: [Migraine, unspecified, not intractable, without status migrainosus]22-61-2195PuhnxxpXilgvaoyvvlfv and screening for infectious disease (15 sources)Contact with and (suspected) exposure to other viral communicable diseases; Translations: [Contact with and (suspected) exposure to other viral communicable diseases]Onset: 02-07-2022 Resolved: 69-10-5481DaljdlfqPxtwoqgzc disorders (17 sources)Irregular periods; Translations: [Irregular menstruation, unspecified]Onset: 678394-08-8165OcwvwrhFzbttisebrnwb mental health disorders (13 sources)Disorders of initiating and maintaining sleep; Translations: [Insufficient sleep syndrome]ChronicMood disorders (8 sources)Depressive disorder; Translations: [Depression]73-38-1088HvldcxdKebhc connective tissue disease (12 sources)Pain of right calf; Translations: [Pain in right lower leg] 47-89-8226MsgsvzxxLqjfd connective tissue disease (1 source)Pain in right lower leg; Translations: [Pain in right lower leg]Onset: 26-73-3282KaplvgnfFaaqy disorders of stomach and duodenum (1 source)IndigestionOnset: 27-47-4043KywavddeXsalu ear and sense organ disorders (2 sources)Sensorineural hearing loss, unilateral, right ear, with unrestricted hearing on the contralateral side; Translations: [Sensorineural hearing loss, unilateral]86-88-6197WrjhhorMqrql ear and sense organ disorders (1 source)Sensorineural hearing loss, bilateral; Translations: [Sensorineural hearing loss, bilateral]04-02-2527JuiizgvFhnnj ear and sense organ disorders (3 sources)Ear sensations - finding; Translations: [Other specified disorders of ear, bilateral]45-77-1187PzbtohkcJhext ear and sense organ disorders (1 source)Bilateral tinnitus; Translations: [Tinnitus, bilateral]02-11-2025 EpisodicOther ear and sense organ disorders (1 source)Other specified disorders of ear, bilateral; Translations: [Other specified disorders of ear, bilateral]Onset: 75-82-3128DkllixxsGneyr ear and sense organ disorders (1 source)Tinnitus, bilateral; Translations: [Tinnitus, bilateral]Onset: 26-99-6371GmvuxxpbUmwyi female genital disorders (1 source)Abnormal uterine bleeding; Translations: [Abnormal uterine and vaginal bleeding, unspecified]75-47-5946EkftfrrSynhr female genital disorders (2 sources)Abnormal uterine and vaginal bleeding, unspecified; Translations: [Abnormal uterine and vaginal bleeding, unspecified]Onset: 96-85-2084Crqucli Other gastrointestinal disorders (19 sources)Diarrhea; Translations: [Diarrhea, unspecified]46-37-2833Uiyiauqw Other gastrointestinal disorders (1 source)HeartburnOnset: 32-14-5824WhquseunGlesv lower respiratory disease (15 sources)Dyspnea on exertion; Translations: [Other forms of dyspnea]Episodic Other nutritional; endocrine; and metabolic disorders (1 source)Metabolic syndrome; Translations: [METABOLIC SYNDROME]Onset: 86-72-3981FxaixraGfbth nutritional; endocrine; and metabolic disorders (20 sources)Body mass index 40+ - severely obese; Translations: [Body mass index (BMI) 50.0-59.9, adult]Onset: 696180-91-0633TfoptdvJbtbo nutritional; endocrine; and metabolic disorders (1 source)Body mass index (BMI) 50.0-59.9, adultChronicOther nutritional; endocrine; and metabolic disorders (8 sources)Severe obesity; Translations: [Class 3 severe obesity with body mass index (BMI) of 60.0 to 69.9 inadult]21-57-5606SjrldgfUrbsd nutritional; endocrine; and metabolic disorders (8 sources)Morbid obesity; Translations: [Body mass index (BMI) 60.0-69.9, adult]72-25-0780VsifzwrVcmrx nutritional; endocrine; and metabolic disorders (8 sources)Abnormal weight gain; Translations: [Abnormal weight gain]04-07-2025 EpisodicOther screening for suspected conditions (not mental disorders or infectious disease) (19 sources)Patient encounter status; Translations: [Encounter for screening mammogram for malignant neoplasm of breast]Onset: 512110-13-4928Bwflofyk Other upper respiratory infections (19 sources)Acute maxillary sinusitis, unspecified; Translations: [Acute maxillary sinusitis]EpisodicOtitis media and related conditions (1 source)Other acute nonsuppurative otitis media, left earEpisodicResidual codes; unclassified (13 sources)Idiopathic sleep related non-obstructive alveolar hypoventilation; Translations: [Idiopathic sleep related nonobstructive alveolar hypoventilation] ChronicResidual codes; unclassified (20 sources)Obstructive sleep apnea syndrome; Translations: [Obstructive sleep apnea (adult) (pediatric)]Onset: 101284-02-5187FwdzbomNaxiywbv codes; unclassified (1 source)Obstructive sleep apnea (adult) (pediatric)ChronicResidual codes; unclassified (1 source)Idiopathic sleep related nonobstructive alveolar hypoventilation ChronicResidual codes; unclassified (1 source)Sleep apnea; Translations: [Sleep apnea, unspecified]22-54-4053Sjgxbio Residual codes; unclassified (1 source)Sleep apnea, unspecified; Translations: [Sleep apnea, unspecified] Onset: 24-53-0752FxmrjbcWxvcgdess and history of mental health and substance abuse codes (2 sources)Standardized adult depression screening tool completed ; Translations: [Encounter for screening fordepression]Onset: EpisodicUnclassified (3 sources)CONTACT W/AND (SUSP) EXPOS COVID-19; Translations: [CONTACT W/AND (SUSP) EXPOS COVID-19]Onset: 12-45-9441Klgycfidwsra (8 sources)R06.09 - Other forms of dyspneaUnclassified (1 source)Gynecologic ExamOnset: 41-82-0097Pakwqzejttwy (1 source)Meniere'sOnset: 02-11-2025 Past or Other Problems Problem ClassificationProblemDateDocumented DateEpisodic/ChronicAbdominal pain (20 sources)Unspecified abdominal pain; Translations: [Flank pain]Onset: 02-25-2017 Resolved: 08-47-9597NsezfdkyQcbabwd obstructive pulmonary disease and bronchiectasis (20 sources)Bronchitis; Translations: [Bronchitis, not specified as acute or chronic]Onset: 208762-60-8667UqbeuevnLnrqnodxzq associated with dizziness or vertigo (20 sources)Benign paroxysmal positional vertigo; Translations: [Benign paroxysmal vertigo, unspecified ear]Onset: 775274-35-8071Dggyycbv Deficiency and other anemia (20 sources)Anemia; Translations: [Anemia, unspecified]Onset: 02-06-2024 11-36-0066XstubvpmI Codes: Natural/environment (20 sources)Cat scratch - wound; Translations: [Scratched by cat, initial encounter]Onset: 02-06-2024 Resolved: 281165-71-8231UfewalfhKfpflmpy; including migraine (20 sources)Headache; Translations: [Headache]Onset: EpisodicMood disorders (2 sources)Mood disordersOnset: Nausea and vomiting (20 sources)Nausea; Translations: [Nausea]Onset: 02-06-2024 Resolved: 112705-02-3095KyayerroCojskjcqbuynw gastroenteritis (20 sources)Gastroenteritis; Translations: [Noninfective gastroenteritis and colitis, unspecified]Onset: 02-06-2024 Resolved: 244067-55-6692JanyprqzRmejz female genital disorders (1 source)Noninflammatory disorder of uterus, unspecified; Translations: [NONINFLAMMATORY DISORDER UTERUS UNS]Onset: 43-04-9982FknumytpIjpwcdf cyst (20 sources)Unspecified ovarian cyst, right side; Translations: [Cyst of ovary] Onset: 20-28-0160BumxkhmwIboevkk and strains (20 sources)Lower back injury; Translations: [Strain of muscle, fascia and tendon of lower back, initial encounter]Onset: 253556-50-1754Jphcpzwh Unclassified (1 source)CONTACT W/AND (SUSP) EXPOS COVID-19; Translations: [CONTACT W/AND (SUSP) EXPOS COVID-19]Onset: 80-44-3274Hazddwcfeczc (2 sources)Onset: Viral infection (1 source)COVID-19 Results Test NameValueInterpretationReference HplosLejmkjlfGvL5t HPLC (Bld) [Mass fraction]Ordered By: April Ahumada on 53-27-7730ZcO4e (Bld) [Mass fraction]5.9 % [facility] CenterBasophils Auto (Bld) [#/Vol]Ordered By: Ely Dodge on 28-46-1009Lkpimyozi (Bld) [#/Vol]0.0 10 3/uL0.0-0.1FRegency Hospital Cleveland WestBasophils/100 WBC Auto (Bld)Ordered By: Ely Echo on 19-07-7210Aucfgfppx/100 WBC (Bld)0.6 %0.2-2.0[facility] Eosinophils/100 WBC Auto (Bld)Ordered By: Ely Echo on 04-21-2025 Eosinophils/100 WBC (Bld)0.8 %Low0.9-7.0[facility] Erythrocyte distribution width Auto (RBC) [Ratio]Ordered By: Ely Echo on 01-22-3672Xkkntazpwwy distribution width (RBC) [Ratio]24.5 %High11.0-15.0 [facility] CenterHematocrit Auto (Bld) [Volume fraction]Ordered By: Ely Echo on 61-82-1356Jfhcifapin (Bld) [Volume fraction]36.8 % 36.0-48.0[facility] CenterHemoglobin [Mass/volume] in Blood Ordered By: Ely Echo on 93-25-0159Bczcgucvlo (Bld) [Mass/Vol]11.4 g/dLLow 12.0-16.0[facility] CenterIron binding capacity [Mass/volume] in Serum or PlasmaOrdered By: Ely Echo on 26-77-5829Vkkk binding capacity [Mass/Vol]320.0 ug/dL250.0-450.0[facility] CenterIron saturation [Mass Fraction] in Serum or PlasmaOrdered By: Ely Echo on 57-78-5273Jahv saturation [Mass fraction]10.6 %[facility] CenterLaboratory - Chemistry and Chemistry - challengeOrdered By: Ely Echo on 04-21-2025 Ferritin [Mass/Vol]40.0 ng/mL8.0-252.0[facility] CenterIron [Mass/Vol]34.0 ug/dLLow50.0-170.0[facility] CenterLaboratory - Hematology and Cell countsOrdered By: Ely Echo on 38-05-2836Rrixscvd granulocytes/100 WBC (Bld)0.5 %0.0-0.5FRegency Hospital Cleveland West Leukocytes [#/volume] corrected for nucleated erythrocytes in Blood by Automated counOrdered By: Elyfredy Dodge on 84-34-4912ULN corrected for nucl RBC Auto (Bld) [#/Vol]6.6 10 3/uL4.0-11.0[facility] CenterLymphocytes Auto (Bld) [#/Vol]Ordered By: Ely Echo on 35-48-2744Xbjpqdcbszk (Bld) [#/Vol]1.3 10 3/uL1.2-3.8[facility] CenterLymphocytes/100 WBC Auto (Bld)Ordered By: Ely Echo on 73-72-4447Cihuzudjjcw/100 WBC (Bld)19.0 %Low20.5-60.0[facility] CenterMCH Auto (RBC) [Entitic mass] Ordered By: Ely Echo on 50-65-2531NCC (RBC) [Entitic mass]24.8 pgLow 26.7-34.0[facility] CenterMCHC Auto (RBC) [Mass/Vol]Ordered By: Ely Echo on 93-72-1443LWNH (RBC) [Mass/Vol]31.0 g/dL29.9-35.2FRegency Hospital Cleveland WestMCV Auto (RBC) [Entitic vol]Ordered By: Ely Echo on 40-19-7345LKK (RBC) [Entitic vol]80.2 fLLow81.0-99.0[facility] CenterMonocytes Auto (Bld) [#/Vol]Ordered By: Ely Echo on 04-21-2025 Monocytes (Bld) [#/Vol]0.4 10 3/uL0.3-0.8[facility] Monocytes/100 WBC Auto (Bld)Ordered By: Ely Echo on 04-21-2025 Monocytes/100 WBC (Bld)5.6 %1.7-12.0[facility] CenterNeutrophils Auto (Bld) [#/Vol]Ordered By: Ely Dodge on 24-41-4910Wrzajxezpkt (Bld) [#/Vol]4.8 10 3/uL1.4-6.5FRegency Hospital Cleveland WestNeutrophils/100 WBC Auto (Bld)Ordered By: Ely Dodge on 29-68-0508Qynbawjdbfa/100 WBC (Bld)73.5 %43.0-75.0[facility] CenterNo Panel InformationOrdered By: Ely Dodge on 23-41-8129Xpsrfahjetj # (Auto)0.1 10 3/uL0.0-0.7FRegency Hospital Cleveland WestImmature Granulocyte # (Auto)0.03 10 3/uL0.00-0.03 [facility] CenterPlatelet mean volume Auto (Bld) [Entitic vol] Ordered By: Ely Dodge on 84-32-5782Kvjocotg mean volume (Bld) [Entitic vol] 10.0 fL9.5-13.5FRegency Hospital Cleveland WestPlatelets Auto (Bld) [#/Vol] Ordered By: Ely Echo on 63-40-9376Eukzemtvd (Bld) [#/Vol]176 10 3/uL 150-450[facility] CenterRBC Auto (Bld) [#/Vol]Ordered By: Ely Echo on 00-14-7416HZB (Bld) [#/Vol]4.59 10 6/uL4.20-5.40[facility] CenterMAMM SCREENING BILATERAL W CADon 83-29-8311EFVA SCREENING BILATERAL W CADMAMM SCREENING BILATERAL W CAD NATI K TUCKER 1985 [id number] EXAM: MAMM SCREENING BILATERAL W CAD, 04/16/2025 [...] 04/17/2025 12:24 PM 2 b MAMM 1 YRNormalBrown Memorial HospitalCBC (NO DIFF)on 76-33-8149Udjrbkawjhi distribution width (RBC) [Ratio]30.1 %High11.5-15[facility] Comment on above:Performed By: #### CBC #### [facility] ([facility]) [address] [place] [address] VIRHematocrit (Bld) [Volume fraction]37.6 %Jrmrzq44-91FkmExcfaoBrown Memorial HospitalComment on above:Performed By: #### CBC #### [facility] ([facility]) [address] [place] [address] VIRHemoglobin (Bld) [Mass/Vol]12.4 g/wNYdhxxe24.7-15.5PCleveland Clinic Union HospitalComment on above:Performed By: #### CBC #### [facility] ([facility]) [address] [place] [address] [facility]H (RBC) [Entitic mass]24.7 ulTpc07-23BibSnemnqBrown Memorial HospitalComment on above:Performed By: #### CBC #### [facility] ([facility]) [address] [place] [address] [facility] (RBC) [Mass/Vol]32.9 g/tOFissjs49-09IrdAyuxdtBrown Memorial HospitalComment on above:Performed By: #### CBC #### [facility] ([facility]) [address] [place] [address] VIRMCV (RBC) [Entitic vol]75 bBVod62-628FqqXsydyxBrown Memorial HospitalComment on above:Performed By: #### CBC #### [facility] ([facility]) [address] [place] [address] VIRPlatelet mean volume (Bld) [Entitic vol]8.7 fLNormal7-12 [facility] HospitalComment on above:Performed By: #### CBC #### [facility] ([facility]) [address] [place] [address] VIRPlatelets (Bld) [#/Vol]197 10*3/fVKkwahl498-944GjxDxdumkBrown Memorial HospitalComment on above:Performed By: #### CBC #### [facility] ([facility]) [address] [place] [address] VIRRBC COUNT5.00 X10E12/LNormal3.8-5.2PCleveland Clinic Union HospitalComment on above:Performed By: #### CBC #### [facility] ([facility]) [address] [place] [address] VIRWBC (Bld) [#/Vol]6.7 10*3/uLNormal4-11[facility] HospitalComment on above:Performed By: #### CBC #### [facility] ([facility]) [address] [place] [address] VIRFERRITINon 43-59-1630Fwugaasw [Mass/Vol]28 ng/nQJjujyw67-280 [facility] HospitalComment on above:Performed By: #### FERR #### [facility] ([facility]) [address] [place] [address] VIRIRON AND TIBCon 72-07-6282Wwzq [Mass/Vol]47 ug/eNXfo69-831 [facility] HospitalComment on above:Performed By: #### FEPR #### [facility] ([facility]) [address] [place] [address] VIRIRON CUQOXNK619 ug/iXSmkkhg601-524DxtTqapmkBrown Memorial Hospital Comment on above:Performed By: #### FEPR #### [facility] ([facility]) [address] [place] [address] VIRIRON XSLCMGZVHJ05 % JNMVUBRDSKXje82-60AfkXccttg [facility] HospitalComment on above:Performed By: #### FEPR #### [facility] ([facility]) [address] [place] [address] VIRTransferrin [Mass/Vol]277 mg/eYEofsvl908-739MuvErlzog [facility] HospitalComment on above:Performed By: #### FEPR #### [facility] ([facility]) [address] [place] [address] VIRTHYROID PROFILE INCLUDES TSH FT4on 52-47-7534Zehq T4 [Mass/Vol]0.87 ng/dLNormal0.61-1.60ProSt. Luke'S Health – Memorial Livingston HospitalComment on above: Performed By: #### THYR #### [facility] ([facility]) [address] [place] [address] VIRTSH3.41 uIU/mLNormal0.49-4.67[facility] Comment on above:Performed By: #### THYR #### [facility] ([facility]) [address] [place] [address] VIRUS PELVIC WITH TRANSVAGINALon 17-31-5563LV PELVIC WITH TRANSVAGINALUS PELVIC WITH TRANSVAGINAL Clinical [...] by Baldo Shen MD on 04/16/2025 12:42 [facility] HospitalH[facility] RISK HPV W/GENOon 19-17-9597JYL 16NegativeNormalNegativeKettering Health Miamisburg Ambulatory PPGComment on above:Performed By: #### HPV #### [facility] ([facility]) [address] [place] [address] VIRHPV 18NegativeNormalNegativeKettering Health Miamisburg Ambulatory PPGComment on above:Performed By: #### HPV #### [facility] ([facility]) [address] [place] [address] VIROTHER HIGH RISK HPVNegativeNormalNegAshtabula County Medical Center Ambulatory PPGComment on above:Result Comment: HPV types 31, 33, 35, 39, 45, 52, 56, 58, 59, 66, and 68 DNA were undetectable.Performed By: #### HPV #### [facility] ([facility]) [address] [place] [address] VIRCeliacon 32-47-4906Wqxhygtukm Gliadin Abs, YbC0Hhoejj7-79Xsi [facility] Physician GroupComment on above:Result Comment: Negative 0 - 19 Weak Positive 20 - 30 Moderate to Strong Positive >30Performed By: #### CELIAC #### [facility] ,Deamidated Gliadin Abs, JgU9Gipkvb5-32Yhf [facility] Physician GroupComment on above:Result Comment: Negative 0 - 19 Weak Positive 20 - 30 Moderate to Strong Positive >30Performed By: #### CELIAC #### [facility] ,Endomysial Antibody IgANegativeNormalNegativeThe [facility] Comment on above:Performed By: #### CELIAC #### [facility] ,Immunoglobulin A, Qn, Ieogs192 mg/zKWfmrbw33-738Nxp [facility] Comment on above:Result Comment: Performed at: [facility] [address] [place], [place] [id number] Photographic Process Worker: Eddie You PhD, Phone: [phone] PERFORMED BY: [facility] José [address] [place] [id number] PATHOLOGIST [employer]EW[employer] MANAGER ABIODUN YEPEZ M.D.Performed By: #### CELIAC #### [facility] ,T-Transglutaminase (tTG) IgA<3Ingils6-9Oar [facility] Physician GroupComment on above:Result Comment: Negative 0 - 3 Weak Positive 4 - 10 Positive >10 Tissue Transglutaminase (tTG) has been identified as the endomysial antigen. Studies have demonstr- ated that endomysial IgA antibodies have over 99% specificity for gluten sensitive enteropathy.Performed By: #### CELIAC #### [facility] ,T-Transglutaminase (tTG) AeQ3Bvzdza1-3Vio [facility] Physician GroupComment on above:Result Comment: Negative 0 - 5 Weak Positive 6 - 9 Positive >9Performed By: #### CELIAC #### [facility] ,Serum gliadin peptide IgA antibody assay (units/volume)Ordered By: Adonis Ferguson on 15-54-6987Ahjmglp peptide IgA Qn (S)6 units0-[facility] CenterComment on above:Negative 0 - 19 Weak Positive 20 - 30 Moderate to Strong Positive >30Serum gliadin peptide IgG antibody assay (units/volume) Ordered By: Adonis Ferguson on 69-70-5593Yozwfvm peptide IgG Qn (S)2 units0-19 [facility] CenterComment on above:Negative 0 - 19 Weak Positive 20 - 30 Moderate to Strong Positive >30Serum or plasma IgA measurement (mass/volume)Ordered By: Adonis Ferguson on 18-53-4515NgF [Mass/Vol]295 mg/dL 87-352[facility] CenterComment on above:Performed at: [facility] [address] [place], [place] [id number] Director: Eddie You PhD, Phone: [phone] tissue transglutaminase (tTG) IgA antibody assay (units/volume)Ordered By: Adonis Ferguson on 83-18-5785oNZ IgA Qn (S)<2 U/mL0-3FRegency Hospital Cleveland WestComment on above:Negative 0 - 3 Weak Positive 4 - 10 Positive >10 Tissue Transglutaminase (tTG) has been identified as the endomysial antigen. Studies have demonstr- ated that endomysial IgA antibodies have over 99% specificity for gluten sensitive enteropathy.Serum tissue transglutaminase (tTG) IgG antibody assay (units/volume)Ordered By: Adonis Ferguson on 73-44-8606vLO IgG Qn (S)3 U/mL0-5FRegency Hospital Cleveland WestComment on above:Negative 0 - 5 Weak Positive 6 - 9 Positive >9MR BRAIN IAC W WO CONTon 63-41-9241OS BRAIN IAC W WO CONTMR BRAIN IAC [...] Jonnathan Espinoza MD on 03/07/2025 3:45 PMNormalProMedica Hammond General HospitalAlbumin [Mass/volume] in Serum or PlasmaOrdered By: Ely Dodge on 27-94-2652Hwqwrnv [Mass/Vol]4.0 g/dL2.9-4.4FRegency Hospital Cleveland West Basophils Auto (Bld) [#/Vol]Ordered By: Ely Dodge on 88-79-7758Ygjsvbbkx (Bld) [#/Vol]0.0 10 3/uL0.0-0.1FRegency Hospital Cleveland WestBasophils/100 WBC Auto (Bld)Ordered By: Ely Dodge on 97-52-1605Yuzrlstul/100 WBC (Bld)0.6 %0.2-2.0[facility] CenterEosinophils/100 WBC Auto (Bld)Ordered By: Ely Dodge on 07-15-9777Vfscbmnhorn/100 WBC (Bld)0.7 %Low0.9-7.0 [facility] CenterErythrocyte distribution width Auto (RBC) [Ratio]Ordered By: Ely Dodge on 10-13-9167Upsertouhjt distribution width (RBC) [Ratio]17.7 %High11.0-15.0[facility] CenterGlobulin Calc (S) [Mass/Vol]Ordered By: Ely Dodge on 90-48-0944Owkkpzgf (S) [Mass/Vol]4.5 g/dLSouthview Medical CenterGlomerular filtration rate (GFR) estimation in non- AmericanOrdered By: Ely Dodge on 03-04-2025 GFR/1.73 sq M.predicted among non-blacks MDRD (S/P/Bld) [Vol rate/Area] mL/min/{1.73_m2}>=60 mL/min/1.73m 2FRegency Hospital Cleveland WestHematocrit Auto (Bld) [Volume fraction]Ordered By: Ely Dodge on 91-05-6460Hgypoahyxr (Bld) [Volume fraction]32.6 %Low36.0-48.0[facility] Hemoglobin [Mass/volume] in BloodOrdered By: Ely Dodge on 03-04-2025 Hemoglobin (Bld) [Mass/Vol]9.3 g/dLLow12.0-16.0[facility] IgA [Mass/volume] in Serum or PlasmaOrdered By: Elyjoana Dodge on 84-37-4761VuU [Mass/Vol]333 mg/cO72-969YrmlvggroSouthview Medical CenterIgG [Mass/volume] in Serum or PlasmaOrdered By: Ely Echo on 59-89-1757XxN [Mass/Vol]964 mg/dL 586-1602Southview Medical CenterIgM [Mass/volume] in Serum or Plasma Ordered By: Ely Echo on 24-22-8122VvW [Mass/Vol]286 mg/dKXgttzmmo76-803 [facility] CenterImmunoglobulin light chains.kappa.free [Mass/volume] in SerumOrdered By: Ely Dodge on 73-14-6554Bnxcnlstkmrofz light chains.kappa.free (S) [Mass/Vol]24.4 mg/LAbnormal3.3-19.4FRegency Hospital Cleveland WestImmunoglobulin light chains.kappa.free/Immunoglobulin light chains.lambda.free [MassOrdered By: Ely Echo on 03-04-2025 Immunoglobulin light chains.kappa.free/Immunoglobulin light chains.lambda.free (S) [Mass ratio]1.120.26-1.65Southview Medical CenterComment on above: Performed at: - [facility] [id number] Director: Eddie You PhD, Phone: [phone] light chains.lambda.free [Mass/volume] in Serum or PlasmaOrdered By: Ely Dodge on 59-83-0249Rebxhislvxoqcz light chains.lambda.free [Mass/Vol]21.7 mg/L5.7-26.3 [facility] CenterIron binding capacity [Mass/volume] in Serum or PlasmaOrdered By: Ely Dodge on 27-32-2408Xukg binding capacity [Mass/Vol] 419.0 ug/dL250.0-450.0[facility] Medical CenterIron saturation [Mass Fraction] in Serum or PlasmaOrdered By: Ely Dodge on 09-75-2437Ezqb saturation [Mass fraction]5.0 %[facility] CenterLaboratory - Chemistry and Chemistry - challengeOrdered By: Ely Dodge on 03-04-2025 Albumin [Mass/Vol]3.9 g/dL3.4-5.0[facility] CenterALP [Catalytic activity/Vol]150 U/DKybs01-122ZugjjjwtoSouthview Medical CenterALT [Catalytic activity/Vol]45 U/X25-30CadenavauSouthview Medical CenterAST [Catalytic activity/Vol]25 U/Y71-58UctsdxyszSouthview Medical CenterBilirubin [Mass/Vol]0.6 mg/dL0.2-1.0[facility] CenterCalcium [Mass/Vol]9.5 mg/dL 8.5-10.1FRegency Hospital Cleveland WestChloride [Moles/Vol]100 mmol/L98-107 [facility] CenterCO2 [Moles/Vol]29.4 mmol/L21.0-32.0[facility] CenterCobalamin (Vitamin B12) [Mass/Vol]498 pg/cX720-5147 [facility] CenterComment on above:Performed at: - [facility] [id number] Director: Eddie You PhD, Phone: [phone] [Mass/Vol]0.73 mg/dL0.55-1.02[facility] CenterFerritin [Mass/Vol]9.0 ng/mL8.0-252.0[facility] CenterGFR/1.73 sq M.predicted MDRD (S/P/Bld) [Vol rate/Area]mL/min/{1.73_m2}>=60 mL/min/1.73m 2FRegency Hospital Cleveland WestGlucose [Mass/Vol]108 mg/dLHigh 74-106[facility] CenterIron [Mass/Vol]21.0 ug/dLLow50.0-170.0 [facility] CenterLDH [Catalytic activity/Vol]133 U/L81-234 [facility] CenterPotassium [Moles/Vol]3.4 mmol/LLow3.5-5.1 [facility] CenterProtein [Mass/Vol]8.4 g/dLHigh6.4-8.2FACMC Healthcare Systemodium [Moles/Vol]140 mmol/W709-514LncbpujjfSouthview Medical CenterUrea nitrogen [Mass/Vol]11.0 mg/dL7.0-18.0[facility] CenterUrea nitrogen/Creatinine [Mass ratio]15.1 mg/mgSouthview Medical CenterLaboratory - Hematology and Cell countsOrdered By: Ely Dodge on 76-42-5887YIP (Bld) [Velocity]108 mm/hHigh<=20[facility] CenterImmature granulocytes/100 WBC (Bld)0.7 %High0.0-0.5FRegency Hospital Cleveland WestLeukocytes [#/volume] corrected for nucleated erythrocytes in Blood by Automated counOrdered By: Ely Dodge on 35-82-1166PID corrected for nucl RBC Auto (Bld) [#/Vol]7.2 10 3/uL4.0-11.0[facility] Lymphocytes Auto (Bld) [#/Vol]Ordered By: Ely Dodge on 03-04-2025 Lymphocytes (Bld) [#/Vol]1.1 10 3/uLLow1.2-3.8[facility] Lymphocytes/100 WBC Auto (Bld)Ordered By: Ely Dodge on 03-04-2025 Lymphocytes/100 WBC (Bld)15.8 %Low20.5-60.0[facility] Medical CenterMCH Auto (RBC) [Entitic mass]Ordered By: Ely Dodge on 96-43-8923CFW (RBC) [Entitic mass]19.7 pgLow26.7-34.0[facility] CenterComment on above:HYPOCHROMASIA 1+MCHC Auto (RBC) [Mass/Vol]Ordered By: Ely Dodge on 21-59-8309CAGE (RBC) [Mass/Vol]28.5 g/dLLow29.9-35.2FRegency Hospital Cleveland WestMCV Auto (RBC) [Entitic vol]Ordered By: Ely Dodge on 65-35-9744BKN (RBC) [Entitic vol]69.2 fLLow81.0-99.0[facility] CenterMonocytes Auto (Bld) [#/Vol]Ordered By: Ely Dodge on 33-79-6747Pwqovauxj (Bld) [#/Vol]0.3 10 3/uL0.3-0.8[facility] CenterMonocytes/100 WBC Auto (Bld)Ordered By: Ely Dodge on 23-64-3389Ssgrgevxs/100 WBC (Bld)4.5 % 1.7-12.0[facility] Medical CenterNeutrophils Auto (Bld) [#/Vol]Ordered By: Ely Dodge on 84-53-1732Gachscbqtti (Bld) [#/Vol]5.6 10 3/uL1.4-6.5 [facility] CenterNeutrophils/100 WBC Auto (Bld)Ordered By: Ely Dodge on 54-36-1526Myfilxzohux/100 WBC (Bld)77.7 %High43.0-75.0 [facility] CenterNo Panel InformationOrdered By: Ely Dodge on 59-84-5341W-Reactive Protein, Quantitative2.01 mg/dLHigh<=0.50[facility] CenterEosinophils # (Auto)0.1 10 3/uL0.0-0.7FRegency Hospital Cleveland WestImmature Granulocyte # (Auto)0.05 10 3/uLHigh0.00-0.03[facility] CenterProtein Electrophoresis M-SpikeNot Observed g/dLNot ObservedSouthview Medical CenterProtein Electrophoresis NoteComment. [facility] CenterComment on above:Protein electrophoresis scan will follow via computer,mail, or clinical informatics director delivery.Platelet mean volume Auto (Bld) [Entitic vol]Ordered By: Ely Dodge on 44-99-9161Kbalggyw mean volume (Bld) [Entitic vol]9.8 fL9.5-13.5FRegency Hospital Cleveland WestPlatelets Auto (Bld) [#/Vol]Ordered By: Ely Echo on 80-46-4728Dofnrnrtj (Bld) [#/Vol]216 10 3/vX465-910GpduwinbzSouthview Medical CenterProtein [Mass/volume] in Serum or PlasmaOrdered By: Elyjoana Dodge on 59-67-2817Zayibcz [Mass/Vol]7.5 g/dL6.0-8.5 [facility] CenterRBC Auto (Bld) [#/Vol]Ordered By: Ely Echo on 86-09-9796GFI (Bld) [#/Vol]4.71 10 6/uL4.20-5.40[facility] CenterReticulocytes/100 RBC Auto (Bld)Ordered By: Ely Dodge on 78-42-3388Rptdazcyhbzsc/100 RBC (Bld)2.68 %0.60-3.10Mer[facility] Memorial Hospitalerum globulin measurement (mass/volume)Ordered By: Ely Dodge on 55-82-8366Laxfvqki (S) [Mass/Vol]3.5 g/dL2.2-3.9Mer[facility] Memorial Hospitalerum or plasma albumin/globulin mass ratioOrdered By: Ely Dodge on 38-22-2015Qcgmwla/Globulin [Mass ratio]0.9 {ratio}[facility] Medical CenterAlbumin/Globulin [Mass ratio]1.2 {ratio}0.7-1.7FACMC Healthcare Systemerum or plasma alpha 1 globulin measurement by electrophoresis (mass/volume)Ordered By: Ely Dodge on 19-68-0448Mvemg 1 globulin Elph [Mass/Vol]0.3 g/dL0.0-0.4FACMC Healthcare Systemerum or plasma alpha 2 globulin measurement by electrophoresis (mass/volume)Ordered By: Ely Dodge on 89-63-5260Xnlbc 2 globulin Elph [Mass/Vol]0.8 g/dL0.4-1.0Mer[facility] Memorial Hospitalerum or plasma anion gap determinationOrdered By: Ely Dodge on 04-55-7372Dtmfp gap [Moles/Vol]14.0 mmol/LFACMC Healthcare Systemerum or plasma beta globulin measurement by electrophoresis (mass/volume)Ordered By: Ely Dodge on 18-24-1960Cwhu globulin Elph [Mass/Vol]1.3 g/dL0.7-1.3FACMC Healthcare Systemerum or plasma gamma globulin measurement by electrophoresis (mass/volume)Ordered By: Ely Dodge on 71-84-9154Mgqbw globulin Elph [Mass/Vol]1.1 g/dL0.4-1.8Mer[facility] Memorial Hospitalerum or plasma immunoelectrophoresis interpretationOrdered By: Ely Dodge on 23-43-9990Xtbonxxaycgghf IEP [Interp]Comment.[facility]view Medical CenterComment on above:No monoclonality detected.US venous duplex LE RTon 68-97-2094OW venous duplex LE [facility] [place] [address] Ultrasound Report Signed Patient: Nati Santos MR#: [id number] : 1985 Acct:[id number] Age/Sex: 39 / F ADM Date: 02/06/25 Loc: ER Room: Type: [facility] ER Attending Dr: Ordering Provider: Bartolo Lyons [...] Hernandez M.D. 02/07/2025 10:31 AM Dictation Location: [place] [address] Tech: Vanda Priyank Transcribed By: JARVIS 02/07/25 103 Dictated By: Luís Hernandez MD 02/07/25 1031 Signed By: 02/07/25 1031[facility] Physician GroupAlanine aminotransferase [Enzymatic activity/volume] in Serum or PlasmaOrdered By: Bartolo Lyons on 51-62-0725UGK [Catalytic activity/Vol]20 U/L7-52[facility] Medical CenterComment on above:Performed By: #### CMP, CK, DIFF CBC, HS TROP #### [facility] [address] [place] [address] USAAlbumin [Mass/volume] in Serum or Plasma by Bromocresol green (BCG) dye binding methoOrdered By: Bartolo Lyons on 33-10-9821Rchlsqq BCG dye [Mass/Vol]4.2 g/dL3.5-5.7FRegency Hospital Cleveland WestAlkaline phosphatase [Enzymatic activity/volume] in Serum or PlasmaOrdered By: Bartolo Lyons on 43-46-6335SCO [Catalytic activity/Vol]106 U/KKqlq11-575BkuzwndiuSouthview Medical CenterComment on above:Performed By: #### CMP, CK, DIFF CBC, HS TROP #### [facility] [address] [place] [address] USAAnisocytosis [Presence] in Blood by Light microscopy Ordered By: Bartolo Lyons on 28-92-0068Cumebgjxtehe Ql (Bld)ModerateSouthview Medical CenterComment on above:Performed By: #### CMP, CK, DIFF CBC, HS TROP #### [facility] [address] [place] [address] USAAppearance of UrineOrdered By: Bartolo Lyons on 02-06-2025 Appearance (U)ClearCleSt. Anthony's HospitalComment on above:Order Comment: Name Collection Type:: Clean-Voided MidstreamPerformed By: #### UA #### [facility] [address] [place] [address] USAAspartate aminotransferase [Enzymatic activity/volume] in Serum or PlasmaOrdered By: Bartolo Lyons on 81-96-3208GIA [Catalytic activity/Vol]18 U/V26-96RdjxkwtlkSouthview Medical CenterComment on above: Performed By: #### CMP, CK, DIFF CBC, HS TROP #### [facility] [address] [place] [address] USABasophils Auto (Bld) [#/Vol]Ordered By: Bartolo Lyons on 94-74-2986Dofwntvnz (Bld) [#/Vol]N/[facility] Basophils/100 WBC Auto (Bld)Ordered By: Bartolo Lyons on 71-23-2139Ssbtwgncj/100 WBC (Bld)N/[facility]uffton HospitalBilirubin Test strip Ql (U)Ordered By: Bartolo Lyons on 55-31-7254Smhwwsldb Ql (U)NegativeNegativeSouthview Medical CenterBilirubin.total [Mass/volume] in Serum or PlasmaOrdered By: Bartolo Lyons on 34-09-6077Flvhitdcj [Mass/Vol]0.6 mg/dL0.3-1.0[facility] Medical CenterComment on above:Performed By: #### CMP, CK, DIFF CBC, HS TROP #### [facility] [address] [place] [address] USACalcium [Mass/volume] in Serum or PlasmaOrdered By: Bartolo Lyons on 01-49-5829Nabxmvt [Mass/Vol]9.5 mg/dL8.6-10.3FRegency Hospital Cleveland WestComment on above:Performed By: #### CMP, CK, DIFF CBC, HS TROP #### [facility] [address] [place] [address] USACarbon dioxide, total [Moles/volume] in Serum or Plasma Ordered By: Bartolo Lyons on 87-60-8442ZR6 [Moles/Vol]28.7 mmol/L21.0-31.0 [facility] Medical CenterComment on above:Performed By: #### CMP, CK, DIFF CBC, HS TROP #### [place] [address] USAChloride [Moles/volume] in Serum or PlasmaOrdered By: Bartolo Lyons on 97-54-4215Jontwmps [Moles/Vol]100 mmol/J71-513LivtrflkhSouthview Medical CenterComment on above:Performed By: #### CMP, CK, DIFF CBC, HS TROP #### [place] [address] USAColor of Urine by AutoOrdered By: Bartolo Lyons on 18-64-3493Spebt (U)Light-yellowYellowSouthview Medical CenterComment on above:Order Comment: Name Collection Type:: Clean-Voided MidstreamPerformed By: #### UA #### [place] [address] USAComprehensive Metabolic Panelon 37-40-6158Tbckrsx [Mass/Vol]4.2 g/dLNormal3.5-5.7The [facility] Physician GroupComment on above: Performed By: #### CMP, CK, DIFF CBC, HS TROP #### [place] [address] USACreatinine Clr Calc Cpgkizcj223.95NormalThe [facility] Physician GroupComment on above:Result Comment: PERFORMED BY: [place] [address] PATHOLOGIST [employer] MANAGER ABIODUN YEPEZ M.D.Performed By: #### CMP, CK, DIFF CBC, HS TROP #### [place] [address] USAGFR/1.73 sq M.predicted MDRD (S/P/Bld) [Vol rate/Area] mL/min/{1.73_m2}NormalThe [facility] Physician GroupComment on above:Performed By: #### CMP, CK, DIFF CBC, HS TROP #### [place] [address] USACreatine kinase [Enzymatic activity/volume] in Serum or PlasmaOrdered By: Bartolo Lyons on 16-47-5950NJ [Catalytic activity/Vol]35 U/L 30-223Southview Medical CenterComment on above:Performed By: #### CMP, CK, DIFF CBC, HS TROP #### [facility] [address] [place] [address] USACreatinine [Mass/volume] in Serum or PlasmaOrdered By: Bartolo Lyons on 79-43-0666Ocgxcicmex [Mass/Vol]0.65 mg/dL0.60-1.20[facility] Medical CenterComment on above:Performed By: #### CMP, CK, DIFF CBC, HS TROP #### [place] [address] USADiff and CBCon 76-80-4769Gbuoc PlateletsSlightOrlando Health [facility] Hospital for Children Physician GroupComment on above:Result Comment: PERFORMED BY: [place] [address] PATHOLOGIST [employer] MANAGER ABIODUN YEPEZ M.D.Performed By: #### CMP, CK, DIFF CBC, HS TROP #### [place] [address] USAMean Corpuscular HGB Conc30.6 g/dLLow32.0-35.0The [facility] Physician GroupComment on above:Performed By: #### CMP, CK, DIFF CBC, HS TROP #### [place] [address] USAMicrocytosisModerateOrlando Health [facility] Physician Group Comment on above:Performed By: #### CMP, CK, DIFF CBC, HS TROP #### [place] [address] USAMonocytes/100 WBC (Bld)20.12 %High0.00-20.00The [facility] Physician GroupComment on above:Result Comment: For adults in ED, MDW > 20.0 may be associated with a higher risk of sepsis during the first 12 hrs of hospital admissionPerformed By: #### CMP, CK, DIFF CBC, HS TROP #### [place] [address] USAMyelocytes1 %High0-0The [facility] Physician GroupComment on above:Performed By: #### CMP, CK, DIFF CBC, HS TROP #### [place] [address] USAOvalocytesSFormerly [facility] Physician GroupComment on above:Performed By: #### CMP, CK, DIFF CBC, HS TROP #### [place] [address] USAPlatelet EstimateNormalNormalNormAdventHealth Central [facility]co ER Physician GroupComment on above:Performed By: #### CMP, CK, DIFF CBC, HS TROP #### [place] [address] USAPoikilocytosisSFormerly [facility]ician Group Comment on above:Performed By: #### CMP, CK, DIFF CBC, HS TROP #### [place] [address] USAStomatocytesSFormerly [facility] Comment on above:Performed By: #### CMP, CK, DIFF CBC, HS TROP #### [place] [address] USAWhite Blood Count6.9 [CFU]/mLNormal3.8-11.6The [facility] Physician GroupComment on above:Performed By: #### CMP, CK, DIFF CBC, HS TROP #### [place] [address] USAECG 12 lead ECGon 73-42-6306VXB 12 lead ECGMEMORIAL [facility] [place] [address] [place] [address] Electrocardiograph Report Signed Patient: Nati Santos MR#: [id number] : 1985 Acct:[id number] Age/Sex: 39 / F ADM Date: 02/06/25 Loc: ER Room: Type: [facility] ER Attending Dr: Ordering Provider: Bartolo Lyons [...] MUS Signed By Mignon Ma MD 02/07/25 0034[facility] Physician GroupEosinophils Auto (Bld) [#/Vol]Ordered By: Bartoloeunice Lyons on 05-67-0257Cuviodafceb (Bld) [#/Vol]N/[facility] HospitalEosinophils/100 WBC Auto (Bld)Ordered By: Bartolo Lyons on 66-99-4624Ctgacwuereg/100 WBC (Bld)N/[facility] Erythrocyte distribution width [Ratio] by Automated countOrdered By: Bartolo Lyons on 02-72-7640Enbfinyzcda distribution width (RBC) [Ratio]18.2 %High 11.9-15.3FRegency Hospital Cleveland WestComment on above:Performed By: #### CMP, CK, DIFF CBC, HS TROP #### [facility] [address] [place] [address] USAErythrocyte morphology finding [Identifier] in Blood Ordered By: Bartolo Lyons on 86-77-3282NWD morphology finding Nom (Bld)N/A [facility] Medical CenterErythrocytes [#/volume] in Blood by Automated countOrdered By: Bartolo Lyons on 62-79-4674ZGO (Bld) [#/Vol]4.49 10*6/uL 3.60-5.00[facility] Medical CenterComment on above:Performed By: #### CMP, CK, DIFF CBC, HS TROP #### [facility] [address] [place] [address] USAGlucose [Mass/volume] in Serum or PlasmaOrdered By: Bartolo Lyons on 47-36-9029Nqdblwl [Mass/Vol]125 mg/aFPebr69-151Whklgvtmb Regional Medical CenterComment on above:ADA recommended reference [...] DIFF CBC, HS TROP #### [facility] [address] [place] [address] USAGlucose [Mass/volume] in Urine by Test stripOrdered By: Bartolo Lyons on 10-40-1182Sgyrxll Test strip (U) [Mass/Vol]Normal mg/dLNormal [facility] Medical CenterHematocrit [Volume Fraction] of Blood by Automated countOrdered By: Bartolo Lyons on 25-71-7633Aspyuqfnfg (Bld) [Volume fraction]28.8 %Low34.0-46.4FRegency Hospital Cleveland WestComment on above: Performed By: #### CMP, CK, DIFF CBC, HS TROP #### [facility] [address] [place] [address] USAHemoglobin Test strip Ql (U)Ordered By: Bartolo Lyons on 22-24-8393Yzrrkkocrj Ql (U)NegativeNegOhio Valley Surgical Hospital Hemoglobin [Mass/volume] in BloodOrdered By: Bartolo Lyons on 02-06-2025 Hemoglobin (Bld) [Mass/Vol]8.8 g/dLLow11.8-15.4FRegency Hospital Cleveland West Comment on above:Performed By: #### CMP, CK, DIFF CBC, HS TROP #### [facility] [address] [place] [address] USAKetones [Presence] in Urine by Test stripOrdered By: Bartolo Lyons on 31-44-7898Piprghr Ql (U)NegativeNegOhio Valley Surgical HospitalComment on above:Order Comment: Name Collection Type:: Clean- Voided MidstreamPerformed By: #### UA #### [facility] [address] [place] [address] USALeukocyte esterase [Presence] in Urine by Test strip Ordered By: Bartolo Lyons on 11-59-7196Lccbbwbtm esterase Test strip Ql (U) NegativeNegativeSouthview Medical CenterComment on above:Order Comment: Name Collection Type:: Clean-Voided MidstreamPerformed By: #### UA #### [facility] [address] [place] [address] USALeukocytes [#/volume] corrected for nucleated erythrocytes in Blood by Automated counOrdered By: Bartolo Lyons on 19-44-3091QHD corrected for nucl RBC Auto (Bld) [#/Vol]6.9 10*3/uL3.8-11.6FRegency Hospital Cleveland WestLeukocytes [#/volume] in Blood by Automated countOrdered By: Bartolo Lyons on 75-01-0501WXJ (Bld) [#/Vol]6.9 10*3/uL3.8-11.6FRegency Hospital Cleveland WestComment on above:Performed By: #### CMP, CK, DIFF CBC, HS TROP #### [place] [address] USALymphocytes Auto (Bld) [#/Vol]Ordered By: Bartolo Lyons on 80-11-9012Burkafcljiq (Bld) [#/Vol]N/[facility] Lymphocytes/100 WBC Auto (Bld)Ordered By: Bartolo Lyons on 02-06-2025 Lymphocytes/100 WBC (Bld)N/[facility] HospitalLymphocytes/100 leukocytes in Blood by Manual countOrdered By: Bartolo Lyons on 02-06-2025 Lymphocytes/100 WBC (Bld)11 %Fvy46-26KzkuckdwuSouthview Medical CenterComment on above:Performed By: #### CMP, CK, DIFF CBC, HS TROP #### [place] [address] USAMCH [Entitic mass] by Automated countOrdered By: Bartolo Lyons on 74-52-2606VZM (RBC) [Entitic mass]19.6 pgLow24.7-34.3FRegency Hospital Cleveland WestComment on above:Performed By: #### CMP, CK, DIFF CBC, HS TROP #### [facility] [address] [place] [address] USAMCHC Auto (RBC) [Mass/Vol]Ordered By: Bartolo Lyons on 43-58-0828UZUR (RBC) [Mass/Vol]30.6 g/dLLow32.0-35.0[facility] Medical CenterMCV [Entitic volume] by Automated countOrdered By: Bartolo Lyons on 94-85-3770VKN (RBC) [Entitic vol]64.2 gVOsd11-616ZepuwxkbkSouthview Medical CenterComment on above:Performed By: #### CMP, CK, DIFF CBC, HS TROP #### [facility] [address] [place] [address] USAMicrocytes LM Ql (Bld)Ordered By: Bartolo Lyons on 70-12-9703Hwdbetwdlf Ql (Bld)ModerateSouthview Medical CenterMonocyte distribution width [Entitic volume] in Blood by AutomatedOrdered By: Bartolo Lyons on 81-63-0921Cmquatnt distribution width Auto (Bld) [Entitic vol]20.12 % High0.00-20.00[facility] Medical CenterComment on above:For adults in ED, MDW > 20.0 may be associated with a higher risk of sepsis during the first 12 hrs of hospital admissionMonocytes Auto (Bld) [#/Vol]Ordered By: Bartolo Lyons on 13-67-0844Efwuxxuvb (Bld) [#/Vol]N/[facility] Monocytes/100 WBC Auto (Bld)Ordered By: Bartolo Lyons on 40-68-1741Qafjvutyb/100 WBC (Bld)N/[facility] HospitalMonocytes/100 leukocytes in Blood by Manual countOrdered By: Bartolo Lyons on 12-85-4076Qgdmjhmcs/100 WBC (Bld)5 % 2-11[facility] Medical CenterComment on above:Performed By: #### CMP, CK, DIFF CBC, HS TROP #### [facility] [address] [place] [address] USAMyelocytes/100 WBC Manual cnt (Bld)Ordered By: Bartolo Lyons on 89-10-3204Uuvgrewunt/100 WBC (Bld)1 %High0-0[facility] Medical CenterNeutrophils Auto (Bld) [#/Vol]Ordered By: Bartolo Lyons on 02-06-2025 Neutrophils (Bld) [#/Vol]N/[facility] HospitalNeutrophils/100 WBC Auto (Bld)Ordered By: Bartolo Lyons on 41-68-5530Hrzeugbjoef/100 WBC (Bld)N/A [facility] CenterNitrite Test strip Ql (U)Ordered By: Bartolo Lyons on 59-00-6254Bqdxkln Ql (U)NegativeNegativeSouthview Medical CenterNo Panel InformationOrdered By: Bartolo Lyons on 66-01-7099Yqxnsqpob GFR (CKD-EPI)> 60.0 mL/MinSouthview Medical CenterPharmacy Creatinine Clearance (Erns950.95[facility] Medical CenterNucleated erythrocytes [Presence] in Blood by Automated countOrdered By: Bartolo Lyons on 02-06-2025 Nucleated RBC Auto Ql (Bld)NBlanchard Valley Health System Bluffton HospitalOvalocytes [Presence] in Blood by Light microscopyOrdered By: Bartolo Lyons on 02-06-2025 Ovalocytes LM Ql (Bld)[facility] HospitalPlatelet adequacy [Presence] in Blood by Light microscopyOrdered By: Bartolo Lyons on 02-06-2025 Platelets LM Ql (Bld)NormalNormalSouthview Medical CenterPlatelet mean volume [Entitic volume] in Blood by Automated countOrdered By: Bartolo Lyons on 07-37-2955Slfphmzk mean volume (Bld) [Entitic vol]8.3 fL6.3-10.7FRegency Hospital Cleveland WestComment on above:Performed By: #### CMP, CK, DIFF CBC, HS TROP #### [facility] [address] [place] [address] USAPlatelet morphology finding [Identifier] in BloodOrdered By: Bartolo Lyons on 88-41-0845Kpudvokp morphology finding Nom (Bld)[facility] Surgical HospitalPlatelets Large [Presence] in Blood by Light microscopy Ordered By: Bartolo Lyons on 42-57-8496Ugatsyalv Large LM Ql (Bld)[facility] HospitalPlatelets [#/volume] in Blood by Automated countOrdered By: Bartolo Lyons on 00-46-9934Wnpfrauqh (Bld) [#/Vol]180 10*3/oN198-631WhugmputxSouthview Medical CenterComment on above:Performed By: #### CMP, CK, DIFF CBC, HS TROP #### [facility] [address] [place] [address] USAPoikilocytosis [Presence] in Blood by Light microscopy Ordered By: Bartolo Lyons on 31-43-7406Ukygdeunnzdjsj LM Ql (Bld)SlightSouthview Medical CenterPotassium [Moles/volume] in Serum or PlasmaOrdered By: Bartolo Lyons on 27-98-8333Rphqhssjs [Moles/Vol]3.7 mmol/L3.5-5.1FRegency Hospital Cleveland WestComment on above:Performed By: #### CMP, CK, DIFF CBC, HS TROP #### [facility] [address] [place] [address] USAProtein Test strip (U) [Mass/Vol]Ordered By: Bartolo Lyons on 69-37-3053Okocmhd (U) [Mass/Vol]NegativeNegativeSouthview Medical CenterProtein [Mass/volume] in Serum or PlasmaOrdered By: Bartolo Lyons on 67-81-3403Palwnyp [Mass/Vol]7.4 g/dL6.4-8.9[facility] Comment on above:Performed By: #### CMP, CK, DIFF CBC, HS TROP #### [facility] [address] [place] [address] USASegmented neutrophils/100 leukocytes in Blood by Manual countOrdered By: Bartolo Lyons on 01-62-8590Ghvyazwbt neutrophils/100 WBC (Bld)83 %Neis89-45PctircawkSouthview Medical CenterComment on above:Performed By: #### CMP, CK, DIFF CBC, HS TROP #### [facility] [address] [place] [address] USASerum globulin measurement by calculation (mass/volume) Ordered By: Bartolo Lyons on 69-37-9660Dlbgyhua (S) [Mass/Vol]3.2 g/dLSouthview Medical CenterComment on above:Performed By: #### CMP, CK, DIFF CBC, HS TROP #### [place] [address] USASerum or plasma albumin/globulin mass ratioOrdered By: Bartolo Lyons on 30-40-8091Cllruah/Globulin [Mass ratio]1.3 {ratio}[facility] Medical CenterComment on above:Performed By: #### CMP, CK, DIFF CBC, HS TROP #### [place] [address] USASerum or plasma anion gap determinationOrdered By: Bartolo Lyons on 55-79-2397Sswce gap [Moles/Vol]12.0 mmol/L6.0-15.0[facility] CenterComment on above:Performed By: #### CMP, CK, DIFF CBC, HS TROP #### [place] [address] USASodium [Moles/volume] in Serum or PlasmaOrdered By: Bartolo Lyons on 75-22-6746Cqyczl [Moles/Vol]137 mmol/R807-674VhhutwkgpSouthview Medical CenterComment on above:Performed By: #### CMP, CK, DIFF CBC, HS TROP #### [place] [address] USASpecific gravity Test strip (U) [Rel density]Ordered By: Bartolo Lyons on 63-56-8858Jxdifowj gravity (U) [Rel density]1.0171.001-1.030 [facility] Hospitaltomatocytes [Presence] in Blood by Light microscopyOrdered By: Bartolo Lyons on 99-80-1982Eaeazapztkku LM Ql (Bld)Slight [facility] Medical CenterTroponin I High Sensitivityon 02-06-2025 Troponin I High Ldvefascpmx2Rupwdp5-70Smm [facility] Physician GroupComment on above:Result Comment: The Troponin units of report have been changed to meet the Chest Pain Accreditation requirement, element EC5.M1l2. Troponin units are changed from pg/ml to ng/L. Also, the decimal is removed and results are in whole numbers. PERFORMED BY: [place] [address] PATHOLOGIST RENEWALS MANAGER ABIODUN YEPEZ M.D.Performed By: #### CMP, CK, DIFF CBC, HS TROP #### [facility] [address] [id number] USATroponin I.cardiac [Mass/volume] in Serum or Plasma by Detection limit <= 0.01 ng/mLOrdered By: Bartolo Lyons on 13-57-3349Kgmtnrkb I.cardiac DL <= 0.01 ng/mL [Mass/Vol]5 ng/L0-[facility] Comment on above:The Troponin units of report have been changed to meet the Chest Pain Accreditation requirement, element EC5.M1l2. Troponin units are changed from pg/ml to ng/L. Also, the decimal is removed and results are in whole numbers.Urea nitrogen [Mass/volume] in Serum or PlasmaOrdered By: Bartolo Lyons on 99-22-1012Dbkr nitrogen [Mass/Vol]11 mg/dL01-17[facility] Medical CenterComment on above:Performed By: #### CMP, CK, DIFF CBC, HS TROP #### [address] [id number] USAUrinalysison 27-13-2121Fixkmbknk,UrineNegativeNormal NegativeThe [facility] Physician GroupComment on above:Order Comment: Name Collection Type:: Clean-Voided MidstreamPerformed By: #### UA #### [place] [address] USAGlucose Ql (U)NormalNormalNormalThe [facility] Physician GroupComment on above:Order Comment: Name Collection Type:: Clean-Voided MidstreamPerformed By: #### UA #### [address] [place] [id number] USANitrite,UrineNegativeNormalNegativeThe [facility] Physician GroupComment on above:Order Comment: Name Collection Type:: Clean-Voided MidstreamPerformed By: #### UA #### [address] [id number] USAOccult Blood,UrineNegativeNormalNegativeThe [facility] Physician GroupComment on above:Order Comment: Name Collection Type:: Clean- Voided MidstreamResult Comment: PERFORMED BY: [place] [address] PATHOLOGIST RENEWALS MANAGER ABIODUN YEPEZ M.D.Performed By: #### UA #### [place] [address] USAProtein,UrineNegativeNormalNegativeThe [facility] Physician GroupComment on above:Order Comment: Name Collection Type:: Clean-Voided MidstreamPerformed By: #### UA #### [place] [address] USASpecificy [place],Urine1.461Tcjldw9.001-1.030The [facility] Physician GroupComment on above:Order Comment: Name Collection Type:: Clean- Voided MidstreamPerformed By: #### UA #### [place] [address] USAUrobilinogen,UrineNormalNormalNormalThe [facility] Physician GroupComment on above:Order Comment: Name Collection Type:: Clean- Voided MidstreamPerformed By: #### UA #### [place] [address] USAUrobilinogen Test strip (U) [Mass/Vol]Ordered By: Bartolo Lyons on 81-80-5261Ylevkkdgdjeq (U) [Mass/Vol]Normal mg/dLNormTrinity Health System Twin City Medical CenterX-ray reportOrdered By: Allen Rico on 02-06-2025 [facility] [place] [address] [place] [address] XRay Report Signed Patient: Nati Santos MR#: [id number] : 1985 Acct:[id number] Age/Sex: 39 / F ADM Date: 5 [...] Jr, DO 02/06/251610 Signed By: 02/06/25 1612 [facility] CenterXR chest 2V*on 35-88-6677RC chest 2V*[facility] [place] [address] [place] [address] XRay Report Signed Patient: Nati Santos MR#: [id number] : 1985 Acct:[id number] Age/Sex: 39 / F ADM Date: 02/06/25 [...] Rico Jr, DO 02/06/251610 Signed By: 02/06/25 [facility] Physician GrouppH of Urine by Test stripOrdered By: Bartolo Lyons on 10-89-2528lA (U)6.0 [pH]5.0-9.0[facility] Medical CenterComment on above:Order Comment: Name Collection Type:: Clean-Voided MidstreamPerformed By: #### UA #### [place] [address] USAAuditory function testson 00-66-5262Jdwvv Ear: Mild conductive hearing loss at 4K Hz. Mild hearing loss at 8K Hz Difficult to place bone in appropriate position because of head shape. Air-bone gap in right ear at 4K Hz may be secondary to poor placement of BC oscillator Left Ear: Mild sensorineural hearing loss at 6K Hz [facility] HealthcareBasophils Auto (Bld) [#/Vol]on 61-42-0272Koyydteij (Bld) [#/Vol]0.0 10 3/uL0.0-0.1FRegency Hospital Cleveland WestBasophils/100 WBC Auto (Bld)on 36-83-9078Mfchhmvms/100 WBC (Bld)0.4 %0.2-2.0[facility] CenterEosinophils/100 WBC Auto (Bld)on 80-72-9075Euwlwwjncyu/100 WBC (Bld)1.3 %0.9-7.0[facility] CenterErythrocyte distribution width Auto (RBC) [Ratio]on 15-12-0546Gtbwmcvytkz distribution width (RBC) [Ratio]15.9 %High11.0-15.0[facility] Medical CenterGlucose mean value [Mass/volume] in Blood Estimated from glycated hemoglobinon 74-51-0442Stcipgg glucose Estimated from glycated hemoglobin (Bld) [Mass/Vol]134 mg/dLSouthview Medical CenterHematocrit Auto (Bld) [Volume fraction]on 23-62-7885Ouyukrufsu (Bld) [Volume fraction]33.7 %Low36.0-48.0[facility] Hemoglobin [Mass/volume] in Bloodon 02-80-2749Uqfjegpfok (Bld) [Mass/Vol]10.1 g/dLLow12.0-16.0[facility] CenterLaboratory - Chemistry and Chemistry - challengeon 15-73-4310Euayjsau [Mass/Vol]12.0 ng/mL8.0-252.0 [facility] CenterLaboratory - Hematology and Cell countson 15-62-7114OtR0p (Bld) [Mass fraction]6.3 %High4.5-6.2FRegency Hospital Cleveland WestComment on above:ADA RECOMMENDED LIMIT 4.0 - 6.0ADA THERAPEUTIC TARGET < 7.0ACTION SUGGESTED> 7.0Immature granulocytes/100 WBC (Bld)0.5 %0.0-0.5FRegency Hospital Cleveland WestLeukocytes [#/volume] corrected for nucleated erythrocytes in Blood by Automated counon 89-23-4812HZT corrected for nucl RBC Auto (Bld) [#/Vol]7.8 10 3/uL4.0-11.0[facility] Lymphocytes Auto (Bld) [#/Vol]on 95-00-9657Sovmfslzbhm (Bld) [#/Vol]1.3 10 3/uL 1.2-3.8[facility] CenterLymphocytes/100 WBC Auto (Bld)on 02-71-6041Izrqgennnfn/100 WBC (Bld)16.7 %Low20.5-60.0[facility] CenterH Auto (RBC) [Entitic mass]on 32-29-9220NZW (RBC) [Entitic mass]23.0 pg Low26.7-34.0[facility] CenterMCHC Auto (RBC) [Mass/Vol]on 08-10-3281JRID (RBC) [Mass/Vol]30.0 g/dL29.9-35.2FRegency Hospital Cleveland WestMCV Auto (RBC) [Entitic vol]on 14-21-3262CQT (RBC) [Entitic vol]76.8 fLLow 81.0-99.0[facility] CenterMonocytes Auto (Bld) [#/Vol]on 73-51-7996Xmcpimawe (Bld) [#/Vol]0.6 10 3/uL0.3-0.8[facility] CenterMonocytes/100 WBC Auto (Bld)on 97-00-8780Sxhaozyoe/100 WBC (Bld)8.0 % 1.7-12.0[facility] CenterNeutrophils Auto (Bld) [#/Vol]on 54-82-8201Kawdcvpuzqa (Bld) [#/Vol]5.7 10 3/uL1.4-6.5FRegency Hospital Cleveland WestNeutrophils/100 WBC Auto (Bld)on 08-81-6445Uihdhpekapq/100 WBC (Bld)73.1 % 43.0-75.0[facility] CenterNo Panel Informationon 11-02-2023 Eosinophils # (Auto)0.1 10 3/uL0.0-0.7FRegency Hospital Cleveland WestImmature Granulocyte # (Auto)0.04 10 3/uLHigh0.00-0.03[facility] Platelet mean volume Auto (Bld) [Entitic vol]on 29-63-3120Sxwioxlr mean volume (Bld) [Entitic vol]9.5 fL9.5-13.5FRegency Hospital Cleveland WestPlatelets Auto (Bld) [#/Vol]on 61-75-7345Zfippeeqi (Bld) [#/Vol]197 10 3/tO730-750WnpzxiyafSouthview Medical CenterRBC Auto (Bld) [#/Vol]on 96-42-6519CCV (Bld) [#/Vol]4.39 10 6/uL4.20-5.40[facility] Medical CenterCOVID CepheidOrdered By: Terrence Spangler on 28-31-8586GUTY-CoV-2 (COVID-19) Ab IA QlNegativeNegative [facility] CenterComment on above:This is a duplicate Cepheid Xpert Xpress CoV-2/Flu/RSV Plus RNA by RT-PCR result to be used for statistical tracking purpose only.SARS-CoV-2 (COVID-19) RNA SIMÓN+probe Ql (Unsp spec) [facility] HospitalARS-CoV-2 (COVID-19) RNA SIMÓN+probe Ql (Unsp spec)[facility] HospitalARS-CoV-2 (COVID-19) RNA SIMÓN+probe Ql (Resp)on 11-83-1740FDRH-CoV-2 (COVID-19) RNA SIMÓN+probe Ql (Unsp spec)Positive [employer] Other 630-3532VDZVS-25 Positive/NegativeOrdered By: Gris Phillip on 02-54-1724SLAX-CoV-2 (COVID-19) N gene SIMÓN+probe Ql (Resp)NegativeNegative [facility] Medical CenterComment on above:Testing for SARS-CoV-2 by RT-PCR This test was developed and its performance characteristics determined by [employer] (BD) and validated at the [facility]. This test has not been FDA cleared [...] and its performance characteristics determined by [employer] (BD) and validated at the [facility]. This test has not been FDA cleared [...] 02-07-2022 SARS-CoV-2 (COVID-19) RNA SIMÓN+probe Ql (Unsp spec)NegativeNoscotland county memorial hospital [employer] Other Albumin [Mass/volume] in Serum or PlasmaOrdered By: Kate Perezvertis/Preceptor on 35-38-8022Fcczxib [Mass/Vol]3.5 g/dL3.2-5.5FRegency Hospital Cleveland WestBasophils Auto (Bld) [#/Vol]Ordered By: Kate Ketvertis/Preceptor on 36-97-3971Kkxkspmpo (Bld) [#/Vol]0.0 10*3/uL0.0-0.2 [facility] CenterBasophils/100 WBC Auto (Bld)Ordered By: Kate Ketvertis/Preceptor on 94-89-9205Mdudyhgly/100 WBC (Bld)0.6 %.[facility] CenterBlood hemoglobin measurement (mass/volume)Ordered By: Kate Perezvertis/Preceptor on 72-86-7326Gewxsmsrvf (Bld) [Mass/Vol]12.0 g/dL11.8-15.4 [facility] CenterBlood leukocytes automated count (number/volume)Ordered By: Kate Perezvertis/Preceptor on 27-34-4621DLK (Bld) [#/Vol]7.9 10*3/uL4.5-11.0[facility] CenterC reactive protein [Mass/volume] in Serum or PlasmaOrdered By: Kate Perezvertis/Preceptor on 82-78-8992ZXJ [Mass/Vol]3.4 mg/dL0.0-1.0[facility] CenterDirect bilirubin measurementOrdered By: Kate Perezvertis/Preceptor on 01-31-2022 Bilirubin.direct [Mass/Vol]mg/dL0.0-0.4FRegency Hospital Cleveland West Eosinophils Auto (Bld) [#/Vol]Ordered By: Kate Ketvertis/Preceptor on 01-31-2022 Eosinophils (Bld) [#/Vol]0.1 10*3/uL0.0-0.45[facility] Eosinophils/100 WBC Auto (Bld)Ordered By: Kate Ketvertis/Preceptor on 01-31-2022 Eosinophils/100 WBC (Bld)1.1 %.[facility] Medical CenterErythrocyte distribution width Auto (RBC) [Ratio]Ordered By: Kate Groves/Preceptor on 94-69-2506Tuoyfpovuvs distribution width (RBC) [Ratio]15.8 %11.9-15.3FRegency Hospital Cleveland WestGlobulin Calc (S) [Mass/Vol]Ordered By: Kate Perezvertis/Preceptor on 90-52-9283Fkcbfbng (S) [Mass/Vol]3.1 g/dLSouthview Medical CenterHematocrit Auto (Bld) [Volume fraction]Ordered By: Kate Perezvertis/Preceptor on 71-98-2702Mdkbgzxubc (Bld) [Volume fraction]37.0 % 34.0-46.4FRegency Hospital Cleveland WestLaboratory - Hematology and Cell countsOrdered By: Kate Groves/Preceptor on 42-32-3136Cqsjbfqhg RBC/100 WBC (Bld) [Ratio]0.1 %0-0.5FRegency Hospital Cleveland WestLymphocytes Auto (Bld) [#/Vol]Ordered By: Kate Perezvertis/Preceptor on 44-17-6344Nnkjdfvohra (Bld) [#/Vol]1.3 10*3/uL1.00-4.8[facility] CenterLymphocytes/100 WBC Auto (Bld)Ordered By: Kate Perezvertis/Preceptor on 91-69-9674Xwvigslzzyi/100 WBC (Bld)16.5 %.[facility] CenterMCH Auto (RBC) [Entitic mass] Ordered By: Kate Perezvertis/Preceptor on 82-24-5699PFM (RBC) [Entitic mass]25.4 pg24.7-34.3FRegency Hospital Cleveland WestMCHC Auto (RBC) [Mass/Vol]Ordered By: Kate Ketvertis/Preceptor on 77-44-6894VWFQ (RBC) [Mass/Vol]32.4 g/dL 32.0-35.0[facility] CenterMCV Auto (RBC) [Entitic vol]Ordered By: Kate Ketvertis/Preceptor on 88-55-3548AYO (RBC) [Entitic vol]78.5 qY64-258 [facility] CenterMonocytes Auto (Bld) [#/Vol]Ordered By: Kate Groves/Preceptor on 88-26-8054Sosurynyw (Bld) [#/Vol]0.5 10*3/uL0.0-0.8 [facility] CenterMonocytes/100 WBC Auto (Bld)Ordered By: Kate Perezvertis/Preceptor on 38-64-9204Bvprcinly/100 WBC (Bld)6.9 %.[facility] Medical CenterNeutrophils Auto (Bld) [#/Vol]Ordered By: Kate ePrezvertis/Preceptor on 94-40-5087Ffjmgjdkixo (Bld) [#/Vol]5.9 10*3/uL1.8-7.7 [facility] CenterNeutrophils/100 WBC Auto (Bld)Ordered By: Kate Perezvertis/Preceptor on 89-57-0074Jqxyqdzlhyu/100 WBC (Bld)74.9 %.[facility] Medical CenterPlatelet mean volume Auto (Bld) [Entitic vol]Ordered By: Kate Groves/Preceptor on 74-56-9045Fpomkktb mean volume (Bld) [Entitic vol] 8.0 fL6.3-10.7FRegency Hospital Cleveland WestPlatelets Auto (Bld) [#/Vol] Ordered By: Kate Salehis/Preceptor on 73-50-4542Fsnsvszhv (Bld) [#/Vol]233 10*3/xJ836-754XemesmdifSouthview Medical CenterProtein [Mass/volume] in Serum or PlasmaOrdered By: Kate Perezvertis/Preceptor on 14-08-2454Txfjkba [Mass/Vol]6.6 g/dL6.1-7.9[facility] CenterRBC Auto (Bld) [#/Vol]Ordered By: Kate Perezvertis/Preceptor on 99-70-3944APK (Bld) [#/Vol]4.71 10*6/uL3.60-5.00 [facility] CenterRandom cortisol measurementOrdered By: Kate Ketvertis/Preceptor on 60-95-4716Vizxedsz [Mass/Vol]8.1 ug/dLSouthview Medical CenterComment on above:Reference range: AM 6 - 24 ug/dl PM <10 ug/dlReference range: AM 6 - 24 ug/dl PM <10 ug/dlSerum or plasma alanine aminotransferase measurement without P-5'-P (enzymatic activiOrdered By: Kate Groves/Preceptor on 35-35-7144PJN No additional P-5'-P [Catalytic activity/Vol]39 U/E28-04EjnplgellMercy Memorial Hospitalerum or plasma albumin/globulin mass ratioOrdered By: Kate Groves/Preceptor on 01-31-2022 Albumin/Globulin [Mass ratio]1.1 {ratio}[facility] Hospitalerum or plasma alkaline phosphatase measurement (enzymatic activity/volume)Ordered By: Kate Salehis/Preceptor on 56-23-9544WKD [Catalytic activity/Vol]112 U/L 32-92Mercy Memorial Hospitalerum or plasma aspartate aminotransferase measurement (enzymatic activity/volume)Ordered By: Kate Saelhis/Preceptor on 76-59-9981VBQ [Catalytic activity/Vol]33 U/I02-45ZkhfcgrmfMercy Memorial Hospitalerum or plasma follitropin measurement (units/volume)Ordered By: Kate Groves/Preceptor on 81-54-3336Ggezeurgjwf Qn4.8 m[IU]/mLSouthview Medical CenterComment on above:FEMALE NORMALS (PREMENOPAUSE) MID-FOLLICULAR PHASE: 3.9-8.8 mIU/mL MID-CYCLE PEAK: 4.5-22.5 mIU/mL MID-LUTEAL PHASE: 1.8-5.1 mIU/mL FEMALE NORMALS (POSTMENOPAUSE): 16.7-113.6 mIU/mL MALE NORMALS: 1.3-19.3 mIU/mLFEMALE NORMALS (PREMENOPAUSE) MID-FOLLICULAR PHASE: 3.9-8.8 mIU/mL MID-CYCLE PEAK: 4.5-22.5 mIU/mL MID-LUTEAL PHASE: 1.8-5.1 mIU/mLFEMALE NORMALS (POSTMENOPAUSE): 16.7-113.6 mIU/mLMALE NORMALS: 1.3-19.3 mIU/mLSerum or plasma free cefuroxime measurement (mass/volume)Ordered By: Kate Groves/Preceptor on 95-60-9735Dseffhkuxc free [Mass/Vol]NegativeNegative [facility] CenterComment on above:Performed at: [facility] [id number] Photographic Process Worker: Eddie You PhD, Phone: [phone] at: [facility] [id number] Director: Eddie You PhD, Phone: [phone] or plasma lutropin measurement (units/volume)Ordered By: Kate Groves/Preceptor on 01-26-8173Dqgjzsdm Qn3.2 m[IU]/mL.[facility] CenterComment on above:Adult Female: Follicular phase 2.4 - 12.6 Ovulation phase 14.0 - 95.6 Luteal phase 1.0 - 11.4 Postmenopausal 7.7 - 58.5 Performed at: [facility] [id number] Photographic Process Worker: Eddie You PhD, Phone: [phone] Female: Follicular phase 2.4 - 12.6 Ovulation phase 14.0 - 95.6 Luteal phase 1.0 - 11.4 Postme nopausal 7.7 - 58.5Performed at: [facility] [id number] Director: Edide You PhD, Phone: [phone] or plasma non-glucuronidated bilirubin measurement (mass/volume)Ordered By: Kate Groves/Preceptor on 40-89-6444Zeqrxkaor.indirect [Mass/Vol][facility] HospitalComment on above:Test not performedSerum or plasma total bilirubin measurement (mass/volume)Ordered By: Kate Groves/Preceptor on 93-87-7101Eurhvifhj [Mass/Vol]0.6 mg/dL0.3-1.2FRegency Hospital Cleveland West TSH DL <= 0.005 mIU/L QnOrdered By: Kate Salehis/Preceptor on 03-55-6244MON Qn 2.78 m[IU]/L0.45-5.33[facility] CenterThyroxine (T4) free [Mass/volume] in Serum or PlasmaOrdered By: Kate Salehis/Preceptor on 32-46-2158Fapz T4 [Mass/Vol]0.80 ng/dL0.61-1.12[facility] Body fluid albumin measurement (mass/volume)Ordered By: Leah Le on 99-24-3921Zuyqpod (Body fld) [Mass/Vol]3.8 g/dL3.2-5.5FRegency Hospital Cleveland WestCholesterol [Mass/volume] in Serum or PlasmaOrdered By: Leah Le on 09-34-2929Elsxhinvprk [Mass/Vol]194 mg/gD122-502TnoveisfpSouthview Medical CenterComment on above:Chol less than 200 mg/dl low risk Chol 201-239 mg/dl borderline risk Chol 240 mg/dl and greater high riskChol less than 200 mg/dl low riskChol 201- 239 mg/dl borderline riskChol 240 mg/dl and greater high riskCholesterol in LDL Calc [Mass/Vol]Ordered By: Leah Le on 02-02-4852Pyfssuscypz in LDL [Mass/Vol]103 mg/dL0-100[facility] CenterComment on above:LDL ATP III CLASSIFICATION LDL less than 100 mg/dL Optimal LDL 100-129 mg/dL Near or above optimal LDL 130-159 mg/dL Borderline high LDL 160-189 mg/dL High LDL greater than 189 mg/dL Very highLDL ATP III CLASSIFICATIONLDL less than 100 mg/dL OptimalLDL 100-129 mg/dL Near or above xvqewkhFWE462-804 mg/dL Borderline highLDL 160-189 mg/dL HighLDL greater than 189 mg/dL Very highCholesterol in VLDL Calc [Mass/Vol]Ordered By: Leah Le on 37-93-4270Gutqnfgxbgc in VLDL [Mass/Vol]55 mg/dLSouthview Medical CenterCreatinine and Glomerular filtration rate.predicted panel (S/P/Bld)Ordered By: Leah Le on 01-10-2022 Creatinine [Mass/Vol]0.71 mg/dL0.44-1.03[facility] Estimated glomerular filtration rate (GFR) non- AmericanOrdered By: Leah Le on 48-85-0924GHT/1.73 sq M.predicted among non-blacks MDRD (S/P/Bld) [Vol rate/Area]> 60 mL/MinSouthview Medical CenterGlobulin Calc (S) [Mass/Vol]Ordered By: Leah Le on 97-27-8811Jlmvmbeb (S) [Mass/Vol]3.3 g/dLSouthview Medical CenterGlucose mean value [Mass/volume] in Blood Estimated from glycated hemoglobinOrdered By: Leah Le on 72-61-6133Aiskfwi glucose Estimated from glycated hemoglobin (Bld) [Mass/Vol]160 mg/dLSouthview Medical CenterLaboratory - Chemistry and Chemistry - challengeOrdered By: Leah Le on 52-86-0018Etqvbvz [Mass/Vol] 130 mg/gZ45-415HmnndhkvuSouthview Medical CenterComment on above:ADA recommended reference rangeLaboratory - Hematology and Cell countsOrdered By: Leah Le on 35-34-8078TcM6f (Bld) [Mass fraction]7.2 %4.3-5.6FRegency Hospital Cleveland WestComment on above:Increased risk for diabetes: 5.7 - 6.4 diabetes: >6.4 glycemic control for adults with diabetes: <7.0Increased risk for diabetes: 5.7 - 6.4diabetes: >6.4glycemic control for adults with diabetes: <7.0No Panel InformationOrdered By: Leah Le on 12-57-7590Xplrmwyft GFR ()> 60 mL/MinSouthview Medical CenterComment on above:GFR estimated reference range: According to KDOQI guidelines, <60 ml/min/1.73m2 is sufficient todiagnose a patient with chronic kidney disease.Pharmacy Creatinine Clearance (ChemN/AFRegency Hospital Cleveland WestTriglycerides Figqqy545 mg/dL 35-149[facility] CenterComment on above:TRIG ATP III CLASSIFICATION TRIG less [...] Serum or PlasmaOrdered By: Leah Le on 38-17-3000Abzalis [Mass/Vol]7.1 g/dL6.1-7.9[facility] Serum or plasma alanine aminotransferase measurement without P-5'-P (enzymatic activiOrdered By: Leah Le on 27-37-5280FWU No additional P-5'-P [Catalytic activity/Vol]48 U/D76-58GagqhqddlMercy Memorial Hospitalerum or plasma albumin/globulin mass ratioOrdered By: Leah Le on 01-10-2022 Albumin/Globulin [Mass ratio]1.2 {ratio}[facility] Hospitalerum or plasma alkaline phosphatase measurement (enzymatic activity/volume)Ordered By: Leah Le on 95-05-9991GJO [Catalytic activity/Vol]115 U/T93-24VjzmqyvyfMercy Memorial Hospitalerum or plasma aspartate aminotransferase measurement (enzymatic activity/volume)Ordered By: Leah Le on 92-96-6895WDC [Catalytic activity/Vol]38 U/X17-82OigooybboMercy Memorial Hospitalerum or plasma calcium measurement (mass/volume)Ordered By: Leah Le on 74-23-2630Hzvurry [Mass/Vol]9.6 mg/dL8.2-10.2FACMC Healthcare Systemerum or plasma chloride measurement (moles/volume)Ordered By: Leah Le on 01-10-2022 Chloride [Moles/Vol]96 mmol/Y94-914HzcgymafoMercy Memorial Hospitalerum or plasma high density lipoprotein (HDL) cholesterol measurementOrdered By: Leah Le on 37-07-6489Jhfkgmxprwm in HDL [Mass/Vol]36 mg/tD64-22XdrvfouzuSouthview Medical CenterComment on above:HDL CHOL ATP-III CLASSIFICATION Cardiovascular Risk HDL > or equal to 60 mg/dL LOW HDL < 40 mg/dL HIGHHDL CHOL ATP-III CLASSIFICATION Cardiovascular RiskHDL > or equal to 60 mg/dL LOWHDL < 40 mg/dL HIGHSerum or plasma potassium measurement (moles/volume)Ordered By: Leah Le on 29-33-9217Qgybuejfv [Moles/Vol]4.4 mmol/L3.5-5.1FACMC Healthcare Systemerum or plasma sodium measurement (moles/volume)Ordered By: Leah Le on 58-86-9819Cjmahv [Moles/Vol]135 mmol/C594-181SzjecnpuhMercy Memorial Hospitalerum or plasma total bilirubin measurement (mass/volume)Ordered By: Leah Le on 05-22-5885Gckugukwv [Mass/Vol]0.4 mg/dL0.3-1.2FACMC Healthcare Systemerum or plasma total carbon dioxide measurement (moles/volume)Ordered By: Leah Le on 35-26-1688GP2 [Moles/Vol]27.0 mmol/L22.0-30.0[facility] Serum or plasma total cholesterol/high density lipoprotein (HDL) cholesterol mass ratOrdered By: Leah Le on 51-36-3468Kbfssjzkarj.total/Cholesterol in HDL [Mass ratio]5.4 {ratio}<5.0Mer[facility] Hospitalerum or plasma urea nitrogen measurement (mass/volume)Ordered By: Leah Le on 01-10-2022 Urea nitrogen [Mass/Vol]9 mg/dL9-23[facility] CenterCBC AUTO DIFFon 40-75-4749TZBB #0.0 103/ulNormal0.0-0.1The [facility] HospitalComment on above:Performed By: #### CBC #### [facility] [address] [address] [address] Nehemiah Powerssophils/100 WBC (Bld)0.4 %Normal0.2-2.0[facility] Comment on above:Performed By: #### CBC #### [facility] [address] [address] [address] Nehemiah Saenz #0.1 103/ulNormal0.0-0.7The [facility] HospitalComment on above: Performed By: #### CBC #### [facility] [address] [place] [address] Dr. Nehemiah Adlerosinophils/100 WBC (Bld)1.3 %Normal0.9-7.0[facility] Comment on above:Performed By: #### CBC #### [facility] [address] [place] [address] Dr. Nehemiah Adlerrythrocyte distribution width (RBC) [Ratio]14.9 %Lbfoaq73.0-15.0 The [facility] HospitalComment on above:Performed By: #### CBC #### [facility] [address] [place] [address] Dr. Nehemiah CastilloHematocrit (Bld) [Volume fraction]36.9 %Ekcnwo40.0-48.0The [facility] HospitalComment on above:Performed By: #### CBC #### [facility] [address] [place] [address] Dr. Nehemiah CastilloHemoglobin (Bld) [Mass/Vol]11.5 g/dLCritically low12.0-16.0[facility] HospitalComment on above:Performed By: #### CBC #### [facility] [address] [place] [address] Dr. Nehemiah Villagomez #0.07 10e3/ulCritically high0.00-0.03[facility] Comment on above:Performed By: #### CBC #### [facility] [address] [place] [address] Dr. Nehemiah Villagomez %0.7 %Critically high0.0-0.5The [facility] HospitalComment on above:Performed By: #### CBC #### [facility] [address] [place] [address] Dr. Nehemiah Agarwal #1.6 103/ulNormal1.2-3.8The [facility] Reserve HospitalComment on above:Performed By: #### CBC #### [facility] [address] [place] [address] Dr. Nehemiah Tripathimphocytes/100 WBC (Bld)16.0 %Critically low20.5-60.0The [facility] HospitalComment on above:Performed By: #### CBC #### [facility] [address] [place] [address] Dr. Nehemiah RiveroUAL DIFF REQNONormalThe [facility] HospitalComment on above: Performed By: #### CBC #### [facility] [address] [place] [address] Dr. Nehemiah Ogden (RBC) [Entitic mass]26.2 pgCritically low26.7-34.0The [facility] HospitalComment on above:Performed By: #### CBC #### [facility] [address] [place] [address] Dr. Nehemiah Ogden (RBC) [Mass/Vol]31.2 g/uNYcapgu90.9-35.2The [facility] HospitalComment on above:Performed By: #### CBC #### [facility] [address] [place] [address] Dr. Nehemiah Ogden (RBC) [Entitic vol]84.1 jTWesogg18.0-99.0[facility] HospitalComment on above:Performed By: #### CBC #### [facility] [address] [place] [address] Dr. Nehemiah Alvarez #0.7 103/ulNormal0.3-0.8The [facility] HospitalComment on above:Performed By: #### CBC #### [facility] [address] [place] [address] Dr. Nehemiah Walkerocytes/100 WBC (Bld)6.7 %Normal1.7-12.0[facility] Comment on above:Performed By: #### CBC #### [facility] [address] [place] [address] Dr. Nehemiah Jordan #7.3 103/ulCritically high1.4-6.5[facility] Comment on above:Performed By: #### CBC #### [facility] [address] [address] [address] Nehemiah CastilloNeutrophils/100 WBC (Bld)74.9 %Tmntwm24.0-75.0The [facility] HospitalComment on above:Performed By: #### CBC #### [facility] [address] [address] [address] Nehemiah CastilloPlatelet mean volume (Bld) [Entitic vol]9.7 fLNormal9.5-13.5The [facility] HospitalComment on above:Performed By: #### CBC #### [facility] [address] [address] [address] Nehemiah CastilloPLT225 103/prFnmrdw266-208Jgi [facility] HospitalComment on above: Performed By: #### CBC #### [facility] [address] [address] [address] Nehemiah CastilloRBC4.39 106/ulNormal4.20-5.40The [facility] HospitalComment on above:Performed By: #### CBC #### [facility] [address] [address] [address] Nehemiah CastilloWBC9.8 103/ulNormal4.0-11.0The [facility] HospitalComment on above: Performed By: #### CBC #### [facility] [address] [address] [address] Nehemiah CastilloGLYCOHEMOGLOBIN A1Con 88-92-3632JZD RECOMMENDATIONADA THERAPEUTIC TARGET 6.0 - 7.0 ACTION SUGGESTED > 7.0NoCleveland Clinic Medina HospitalComment on above:Performed By: #### A1C #### [facility] [address] [address] [address] Nehemiah CastilloGlucose [Mass/Vol]148 mg/dLNoCleveland Clinic Medina HospitalComment on above:Performed By: #### A1C #### [facility] [address] [address] [address] Nehemiah CastilloHbA1c (Bld) [Mass fraction]6.8 %Critically high<=6.0The Dino HospitalComment on above:Performed By: #### A1C #### [facility] [address] [address] [address] Nehemiah SchumacherID PROFILEon 24-31-8202VDEG-HDL RATIO NORMSSelect Medical Specialty Hospital - TrumbullComhenry ford [facility] on above:Result Comment: 3.3 - 4.4 LOW RISK 4.4 - 7.1 AVERAGE RISK 7.1 - 11.0 MODERATE RISK >11.0 HIGH RISKPerformed By: #### CMP, LIPID #### [facility] [address] [address] [address] Nehemiah CastilloCholesterol [Mass/Vol]153 mg/dLNormal<=200[facility] Comment on above:Performed By: #### CMP, LIPID #### [facility] [address] [address] [address] Nehemiah CastilloCholesterol in HDL [Mass/Vol]32 mg/dLMiddletown Hospital Comment on above:Performed By: #### CMP, LIPID #### [facility] [address] [address] [address] Nehemiah CastilloCholesterol in LDL [Mass/Vol]76.6 mg/dLMiddletown HospitalComment on above:Performed By: #### CMP, LIPID #### [facility] [address] [address] [address] Nehemiah CastilloCholesteretelvina.total/Cholesterol in HDL [Mass ratio]4.8 {ratio} NormalOhiohealth Shelby HospitalComment on above:Performed By: #### CMP, LIPID #### [facility] [address] [address] [address] Nehemiah CastilloHDL NORMAL> or = 60 mg/dl - LOW CARDIOVASCULAR RISK <40 mg/dl - HIGH CARDIOVASCULAR RISKMiddletown HospitalComment on above:Performed By: #### CMP, LIPID #### [facility] [address] [address] [address] Nehemiah CastilloLDL CALC NORMALSEE [facility] Main CampusComment on above:Result Comment: <100 mg/dl OPTIMAL 100 - 129 mg/dl NEAR OR ABOVE OPTIMAL 130 - 159 mg/dl BORDERLINE HIGH 160 - 189 mg/dl HIGH >190 mg/dl VERY HIGH Performed By: #### CMP, LIPID #### [facility] [address] [place] [address] Dr. Nehemiah CastilloTriglyceride [Mass/Vol]222 mg/dLCritically high<=150The TriHealthment on above:Performed By: #### CMP, LIPID #### [facility] [address] [address] [address] Nehemiah CastilloVLDL CALC44.4 mg/dLNormalThe [facility] HospitalComment on above: Performed By: #### CMP, LIPID #### [facility] [address] [place] [address] Dr. Nehemiah Bryant 14(COMP METB)on 59-11-1973Ndkxrjr [Mass/Vol]3.1 g/dL Critically low3.5-5.0The [facility] HospitalComment on above:Performed By: #### CMP, LIPID #### [facility] [address] [place] [address] Dr. Nehemiah CastilloAlbumin/Globulin [Mass ratio]0.8 {ratio}NormalThe [facility] HospitalComment on above:Performed By: #### CMP, LIPID #### [facility] [address] [place] [address] Dr. Nehemiah Nunez [Catalytic activity/Vol]134 U/LCritically jjyp32-946Ktv [facility] HospitalComment on above:Performed By: #### CMP, LIPID #### [facility] [address] [place] [address] Dr. Nehemiah Talavera [Catalytic activity/Vol]36 U/LNormal9-52The [facility] Comment on above:Performed By: #### CMP, LIPID #### [facility] [address] [place] [address] Dr. Nehemiah Davison gap [Moles/Vol]10.7 mmol/LNormalThe [facility] Comment on above:Performed By: #### CMP, LIPID #### [facility] [address] [place], [place] [address] Dr. Nehemiah CastilloAST [Catalytic activity/Vol]17 U/FJoyogr15-41Wik [facility] HospitalComment on above:Performed By: #### CMP, LIPID #### [facility] [address] [place] [address] Dr. Nehemiah CastilloBilirubin [Mass/Vol]0.4 mg/dLNormal0.2-1.3The [facility] Comment on above:Performed By: #### CMP, LIPID #### [facility] [address] [place] [address] Dr. Nehemiah CastilloCalcium [Mass/Vol]9.1 mg/dLNormal8.4-10.2The [facility] Comment on above:Performed By: #### CMP, LIPID #### [facility] [address] [place] [address] Dr. Nehemiah CastilloChloride [Moles/Vol]101 mmol/GFfjyag01-799Qby [facility] Comment on above:Performed By: #### CMP, LIPID #### [facility] [address] [place] [address] Dr. Nehemiah CastilloCO2 [Moles/Vol]30.0 mmol/UQonmzp14.0-30.0[facility] Comment on above:Performed By: #### CMP, LIPID #### [facility] [address] [place] [address] Dr. Nehemiah CastilloCreatinine [Mass/Vol]0.67 mg/dLNormal0.52-1.04The [facility] HospitalComment on above:Performed By: #### CMP, LIPID #### [facility] [address] [place] [address] Dr. Nehemiah AdlerGFR-AF EMIRATI>60Normal>=60The [facility] HospitalComment on above:Performed By: #### CMP, LIPID #### [facility] [address] [place] [address] Dr. Nehemiah AdlerGFR-NON AF EMIRATI>60Normal>=60The [facility] HospitalComment on above:Performed By: #### CMP, LIPID #### [facility] [address] [address] [address] Nehemiah CastilloGlobulin (S) [Mass/Vol]4.1 g/dLNormCincinnati Children's Hospital Medical CenterComment on above:Performed By: #### CMP, LIPID #### [facility] [address] [place] [address] Dr. Nehemiah CastilloGlucose [Mass/Vol]149 mg/dLCritically hafj45-017Ysy [facility] HospitalComment on above:Performed By: #### CMP, LIPID #### [facility] [address] [place] [address] Dr. Nehemiah CastilloPotassium [Moles/Vol]3.7 mmol/LNormal3.4-5.0[facility] Comment on above:Performed By: #### CMP, LIPID #### [facility] [address] [place] [address] Dr. Nehemiah CastilloProtein [Mass/Vol]7.2 g/dLNormal6.1-8.2The [facility] Comment on above:Performed By: #### CMP, LIPID #### [facility] [address] [place] [address] Dr. Nehemiah CastilloSodium [Moles/Vol]138 mmol/GCwikpe712-621Ure [facility] Comment on above:Performed By: #### CMP, LIPID #### [facility] [address] [place] [address] Dr. Nehemiah CastilloUrea nitrogen [Mass/Vol]12.0 mg/dLNormal7.0-17.0The [facility] HospitalComment on above:Performed By: #### CMP, LIPID #### [facility] [address] [place] [address] Dr. Nehemiah CastilloUrea nitrogen/Creatinine [Mass ratio]17.9 mg/mgNoCleveland Clinic Medina HospitalComment on above:Performed By: #### CMP, LIPID #### [facility] [address] [place] [address] Dr. Nehemiah CastilloCovid-19 PCR (CVDTB)on 80-11-0763AVPO-CoV-2 (COVID-19) RNA SIMÓN+probe Ql (Unsp spec)Not detectedNormalNOT DETECTEDThe [facility] Comment on above:Result Comment: This test is not yet approved or cleared by the [place] FDA. When there are no FDA-approved or cleared tests available, and other criteria are met, FDA can make tests available under an emergency access mechanism called an Emergency Use Authorization (EUA). The EUA for this test is supported by the Computer Forensics Investigator of Health and Human Service's (HHS's) declaration [...] and symptoms consistent with SARS-CoV-2.Performed By: #### [facility] #### [facility] [address] [place] [address] Dr. Nehemiah Ng-19 PCR ([facility])on 61-70-0583BPFF-CoV-2 (COVID-19) RNA SIMÓN+probe Ql (Unsp spec)Not detectedNormalNOT DETECTEDThe [facility] Comment on above:Result Comment: This test is not yet approved or cleared by the [place] FDA. When there are no FDA-approved or cleared tests available, and other criteria are met, FDA can make tests available under an emergency access mechanism called an Emergency Use Authorization (EUA). The EUA for this test is supported by the Computer Forensics Investigator of Health and Human Service's (HHS's) declaration [...] consistent with SARS-CoV-2.Performed By: #### CVDTBH #### [facility] [address] [address] [address] Nehemiah Fuller Recordson 06-59-1263[place] Records [id number]#1.00[facility] Outside [id number]#1.00OTDunlap Memorial HospitalPatient Handouton 95-29-4501Clruklx Handout [address] Ext[address] March 24, 2021 Nati Santos with date of 1985 was in the emergency room through [facility] on March 22, 2021. She was diagnosed with flank strain. This office did not follow her for time off with this recent exacerbation of low back pain and has not authorized this time off. ER did recommend return to work on March 24, 2021. Trice Jernigan, [place] Family Nurse PractitionerMemorial Health System Marietta Memorial HospitalConsent Formson 03-23-2021 Consent [id number]#1.00[facility] HealthCoding Summaryon 68-85-9419Iqdjyd SummaryHTMLBase 64 LdtohrwdKFt3ePd+PGhlYWQ+CQ2XTXSyZ85zaSKgsS3OY1mIKQ2QWNQXPNZKVU6XVM7kgCS0OTnxK1Hc biAv [file] b2x (more content not included)...[facility] HospitalOutside Recordson 64-54-0993Xaujilh [id number]#1.00OTGTIFF [facility] HospitalOutside Recordson 57-25-8598Tmjiyzw Records [id number]#1.00OTSelect Medical [facility] [place]2019 Novel Coronavirus (CoVID-19), SIMÓN LCon 56-83-3253LYLH-CoV-2 (COVID-19) RNA SIMÓN+probe Ql (Unsp spec)Not detectedInvalid Interpretation [facility] Comment on above:Order Comment: [id number] Comment: This nucleic acid amplification test was developed and its performance characteristics determined by [employer]. Nucleic acid amplification tests include RT- PCR [...] detected) result in this assay. Performed At: [address] [id number] Kenyatta Morgan PhD Ph:[phone] By: #### [id number] ####[facility] (DEFAULT)[address] [place] [address] 17578Qbffvuz Recordson 03-16-7607Apwtvom [id number]#1.00OTGTIFF [facility] HospitalOutside Recordson 25-06-0850Dzzphdm Records [id number]#1.00OTGTBar[facility] Outside [id number]#1.00OTDunlap Memorial HospitalOutside Recordson 56-59-1642Wzsoqbt Records [id number]#1.00[facility] Outside [id number]#1.00[facility] Records [id number]#1.00[facility] Outside Recordson 41-58-5706Xsgranp Records [id number]#1.00[facility] Outside Recordson 35-95-2740Syyaffu Records [id number]#1.00[facility] Patient Handouton 98-13-0163Waokiit HandoutNephrology Peripheral Edema Peripheral edema is swelling [...] your health care provider. Medicines ? Take ewzp-ura-lhmjdeq and prescription medicines only as told by [...] provider. Document Revised: 03/06/2019 Document Reviewed: 03/06/2019 [employer] Patient Education ? 2019 [employer].[facility] HospitalOutside Recordson 00-30-6549Qtijbjq Records [id number]#1.00OTGTKettering Health Preble Coding Summaryon 78-61-8364Oohjll SummaryHTMLBase 64 WdedehfmPCk7qNf+PGhlYWQ+SA9KTNVqH17hvOQudP0GK7dMBD7LRSAKIAKZVB1XBL4lzFJ4EBjtB7Oz biAv [file] b2x (more content not included)...NormalParma Community General Hospital Hospital.Auto Diff 1on 57-30-4920Hwpz Cotton %6 %Normal1-12[facility] HospitalComment on above:Performed By: #### 6323624, [id number], 59604619, [id number] ####[facility] (DEFAULT)[address] [place] [address] 18999Daxo Abs#0.0 q02Jnuuil4.0-0.2 [facility] HospitalComment on above:Performed By: #### 0504136, [id number], 89421396, [id number] ####[facility] (DEFAULT)[address] [place] [address] 00486Tkrlsnujd/100 WBC (Bld)0.3 %Normal0.2-2.0[facility] Comment on above:Performed By: #### 0104639, [id number], 52698062, [id number] ####[facility] (DEFAULT)[address] [place] [address] 28127Odg Abs# 0.1 y54Jzovzx5.0-0.4[facility] HospitalComment on above:Performed By: #### 9331586, [id number], 50193835, [id number] ####[facility] (DEFAULT)[address] [place] [address] 19449Cwmstvbcaah/100 WBC (Bld)1.1 %Normal0.9-4.0 [facility] HospitalComment on above:Performed By: #### 6079848, 5245486276, 27480942, [id number] ####[facility] (DEFAULT)[address] [place] [address] 43393Yucyr Abs#1.2 z10Sba6.3-2.9[facility] HospitalComment on above: Performed By: #### 4560736, [id number], 64261149, [id number] ####[facility] (DEFAULT)[address] [place] [address] 95722Iegngizfscl/100 WBC (Bld)15 %Ianpxa20-72Brbepekn HospitalComment on above:Performed By: #### 9982999, [id number], 45357020, 0061294350 ####[facility] (DEFAULT)[address] [place] [address] 30048Dccs Abs#0.5 v05Xachoz5.0-0.8Magrmarietta memorial hospital HospitalComment on above:Performed By: #### 7366793, [id number], 53239556, 1052634301 ####[facility] (DEFAULT)[address] [place] [address] 60102Jych Abs#6.1 n01Dqyoie4.5-9.2Magrmarietta memorial hospital HospitalComment on above:Performed By: #### 2594178, [id number], 10664319, 5013931615 ####[facility] (DEFAULT)[address] [place] [address] 44653Ghkkhsrerrs/100 WBC (Bld)78 % Fzhuvy27-40Xdqqpikf HospitalComment on above:Performed By: #### 0376295, [id number], 53780252, [id number] ####[facility] (DEFAULT)[address] [place] [address] 31734QJI Standardon 05-55-2994aVIS Non AA>60Invalid Interpretation CodeParma Community General Hospital HospitalComment on above:Performed By: #### 2597837, [id number], 56672783, [id number] ####[facility] (DEFAULT)[address] [place] [address] 24235sTLQ AA>60Invalid Interpretation CodeParma Community General Hospital HospitalComment on above:Result Comment: Chronic Kidney disease could be indicated at eGFRs of less than 60 ml/min/1.73m2. Kidney Failure is indicated at less than 15 ml/min/1.95m3Kkyivrpzx By: #### 0536307, [id number], 41865409, [id number] ####[facility] (DEFAULT)[address] [place] [address] 62347Mejfg gap [Moles/Vol]14.0 mmol/LNormal5.0-19.0[facility] HospitalComment on above:Performed By: #### 4813028, [id number], 77087599, 8740940387 ####[facility] (DEFAULT)[address] [place] [address] 65090Pzevfpf [Mass/Vol]9.0 mg/dLNormal8.9-10.3[facility] HospitalComment on above:Performed By: #### 6614471, [id number], 39781620, 7154863916 ####[facility] (DEFAULT)[address] [place] [address] 27202Kboyzizz [Moles/Vol]99 mmol/YFgt322-250Qonaldxl HospitalComment on above:Performed By: #### 0318906, 7558436848, 80999422, 9748194245 ####[facility] (DEFAULT)[address] [place] [address] 36854NY1 [Moles/Vol]28 mmol/FWhvvyk60-82Fnnditjy HospitalComment on above: Performed By: #### 7573145, 4036927771, 11691632, 3751499709 ####[facility] (DEFAULT)[address] [place] [address] 02572Uvoptrqwzm [Mass/Vol] 0.57 mg/dLLow0.60-1.30[facility] HospitalComment on above:Performed By: #### 6997720, 5565652041, 88358642, 2853204599 ####[facility] (DEFAULT)[address] [place] [address] 20490Zfgmuqa [Mass/Vol]122.0 mg/bESsvr43.0-118.0 [facility] HospitalComment on above:Performed By: #### 1909010, 3861103586, 04444524, [id number] ####[facility] (DEFAULT)[address] [place] [address] 96762Dhzaufvwoe321 mOsm/LInvalid Interpretation CodeParma Community General Hospital HospitalComment on above:Performed By: #### 5999973, [id number], 88779637, [id number] ####[facility] (DEFAULT)[address] [place] [address] 60842Svfysvmdf [Moles/Vol]3.5 mmol/LLow3.6-5.1[facility] HospitalComment on above: Performed By: #### 3413028, 1377745726, 38404289, [id number] ####[facility] (DEFAULT)[address] [place] [address] 18402Irwpfd [Moles/Vol]137.0 mmol/MMsteuw491.0-144.0[facility] HospitalComment on above:Performed By: #### 5233172, 5218646614, 93688775, 7902386249 ####[facility] (DEFAULT)[address] [place] [address] 00953Actv nitrogen [Mass/Vol]14 mg/dLNormal8-26 [facility] HospitalComment on above:Performed By: #### 2216262, 8729306510, 93491490, 1271378019 ####[facility] (DEFAULT)[address] [place] [address] 35584Weug nitrogen/Creatinine [Mass ratio]25.0 mg/mgHigh4.6-16.2 [facility] HospitalComment on above:Performed By: #### 6943256, 9502161607, 04864663, 0867456237 ####[facility] (DEFAULT)[address] [place] [address] 82936OHJ w/ Auto Diffon 30-25-0631Sheprgscabh distribution width (RBC) [Ratio]15.6 %High11.5-15.0[facility] HospitalComment on above:Performed By: #### 9150317, 4069169049, 56987254, 3319692149 ####[facility] (DEFAULT)[address] [place] [address] 86906Wjpkhiqofm (Bld) [Volume fraction]36.5 %Dbnkkq43.7-40.4[facility] HospitalComment on above:Performed By: #### 3701432, [id number], 88313825, [id number] ####[facility] (DEFAULT)[address] [place] [address] 30510Zmmprxgljw (Bld) [Mass/Vol]12.0 g/gYTbfmqh75.3-15.9[facility] HospitalComment on above:Performed By: #### 1349198, 3588384007, 58136365, 2644282925 ####[facility] (DEFAULT)[address] [place] [address] 49311Pxfvr WBC7.9 x29Hivdhod Interpretation CodeParma Community General Hospital HospitalComment on above:Performed By: #### 5425892, 0250102549, 96192628, [id number] ####[facility] (DEFAULT)[address] [place] [address] 69576Lfx Diff?AutoNormalParma Community General Hospital HospitalComment on above:Performed By: #### 3097337, 8554202692, 57047900, 5151418461 ####[facility] (DEFAULT)[address] [place] [address] 51986GHA (RBC) [Entitic mass]27 lyHyqwnh98-88 [facility] HospitalComment on above:Performed By: #### 9672408, 3757489446, 99181290, [id number] ####[facility] (DEFAULT)[address] [place] [address] 16894EWPO (RBC) [Mass/Vol]33 g/iLIxdwcy12-42Zjuulvvp HospitalComment on above:Performed By: #### 3635481, 1034527583, 99649425, 4992916092 ####[facility] (DEFAULT)[address] [place] [address] 81007TZN (RBC) [Entitic vol]82 cRCfqltb64-713Cxfuhjcs HospitalComment on above:Performed By: #### 6995546, 7396203892, 54707840, 4997816119 ####[facility] (DEFAULT)[address] [place] [address] 14519Ulhelbjn287 r24Uaaarg003-713 [facility] HospitalComment on above:Performed By: #### 7278197, 8431195090, 47690919, 7156061549 ####[facility] (DEFAULT)[address] [place] [address] 72131Jnaildwf mean volume (Bld) [Entitic vol]9.3 fLNormal6.3-10.2 [facility] HospitalComment on above:Performed By: #### 9462926, 1361766985, 01314796, 3051048786 ####[facility] (DEFAULT)[address] [place] [address] 20974ADA4.46 m10Dmxdlz6.70-5.30[facility] HospitalComment on above: Performed By: #### 2081320, 5008283182, 17380634, 9164895206 ####[facility] (DEFAULT)[address] [place] [address] 18668PYD7.9 f56Njysye 3.5-10.5[facility] HospitalComment on above:Performed By: #### 2644612, 2117757178, 30447617, 1164683308 ####[facility] (DEFAULT)[address] [place] [address] 06621DclD2t Standardon 12-30-2020.Hb12.8Invalid Interpretation TriHealthComment on above:Performed By: #### 2832825, [id number], 76553434, [id number] ####[facility] CENTER (DEFAULT)[address] [place] [address].Hgb A1c0.57 g/dLInvalid Interpretation [facility] HospitalComment on above:Performed By: #### [id number], [id number], [id number] ####[facility] (DEFAULT)[address] [place] [id number] [Mass/Vol]132 mg/dLInvalid Interpretation [facility] Comment on above:Performed By: #### [id number], [id number], [id number] ####[facility] (DEFAULT)[address] [place], [place] [address]NqL6k (Bld) [Mass fraction]6.2 %Normal4.6-6.2[facility] HospitalComment on above: Performed By: #### [id number], [id number], [id number], [id number] ####[facility] (DEFAULT)[address] [place], [place] [address]TI PELVIS AND TRANSVAG on [id number] PELVIS AND TRANSVAGEXAMINATION: US PELVIS AND TRANSVAG [...] authenticated by: ANA PAULA CONNELL Date: 2020-09-18 14:[address] [place], [place] [address]US PELVIS AND TRANSVAGon [id number] PELVIS AND TRANSVAG EXAMINATION: US PELVIS AND [...] Electronically authenticated by: KAYLYN HUNT Date: 2020-08-07 09:30[facility] Vital Signs Date TimeVital SignValuePerforming [id number] 11:17-0500Body oltnmj825.6 cmCorey Christiana DO Work Phone: [facility] HospitalWsojbhgqig23-53-7829 11:17-0500Body mass index (BMI) [Ratio]58.72 kg/u8Fvsvh Christiana DO Work Phone: [facility] HospitalHofqnchpar98-59-2207 11:17-0500Body eswjwg822.02 kgCorey Christiana DO Work Phone: [facility] HospitalBphadxblvj35-93-5264 11:17-0500Diastolic blood jqyytsiv69 mm[Hg]David Christiana DO Work Phone: [facility] HospitalVtilvxnhgh95-23-1785 11:17-0500Systolic blood pzujbsmt144 mm[Hg]David Christiana DO Work Phone: [facility] HospitalSsaeicqlvj98-67-8078 13:30-0500Body .91 cmApril Ahumada MD Work Phone: 1([phone])806-20[facility]11-04-2025 13:30-0500 Body mass index (BMI) [Ratio]58.1 kg/d9GckmtrApril Ahumada MD Work Phone: 1(527)230-14[facility]11-04-2025 13:30-0500 Body oedjct985.01 kgApril Ahumada MD Work Phone: 1(386)653-04[facility]11-04-2025 13:30-0500 Diastolic blood sabmonky46 mm[Hg]April Ahumada MD Work Phone: 1(349)604-54[facility]11-04-2025 13:30-0500 Heart rate70 /Cherise Ahumada MD Work Phone: 1(899)[address]11-04-2025 13:30-0500 Systolic blood agsehkle939 mm[Hg]April Ahumada MD Work Phone: 1(415)[address] [place], [place] 6004011-03-2025 13:07-0500 Body mcrgqi753.91 cmApril Ahumada MD Work Phone: 1(947)[address] [place], [place] 6004011-03-2025 13:07-0500 Body mass index (BMI) [Ratio]58.3 kg/o4PqzaxxApril Ahumada MD Work Phone: 1(098)[address] [place], [place] 6004011-03-2025 13:07-0500 Body fpufel461.46 kgApril Ahumada MD Work Phone: 1(475)[address] [place], [place] 6004011-03-2025 13:07-0500 Diastolic blood oelzwhxa68 mm[Hg]April Ahumada MD Work Phone: 1(907)[address] [place], [place] 6004011-03-2025 13:07-0500 Heart rate67 /Cherise Ahumada MD Work Phone: 1(546)[address] [place], [place] 6004011-03-2025 13:07-0500 Systolic blood irhdreqh830 mm[Hg]April Ahumada MD Work Phone: 1(127)[address] [place], [place] 6004010-29-2025 09:09-0400 Body alwoaw625.91 cmApril Ahumada MD Work Phone: 1(788)[address] [place], [place] 6004010-29-2025 09:09-0400 Body mass index (BMI) [Ratio]58.1 kg/e2XkbfzcApril Ahumada MD Work Phone: 1(469)[address] [place], [place] 6004010-29-2025 09:09-0400 Body qiejdr029.01 kgApril Ahumada MD Work Phone: 1(200)[address] [place], [place] 6004010-29-2025 09:09-0400 Diastolic blood tyxmndxb69 mm[Hg]April Ahumada MD Work Phone: 1(492)[address] [place], [place] 6004010-29-2025 09:09-0400 Heart rate66 /Cherise Ahumada MD Work Phone: 1(058)937-95[facility]10-29-2025 09:09-0400 SaO2% (BldA) [Mass fraction]96 %April Ahumada MD Work Phone: 1(113)396-65[facility]10-29-2025 09:09-0400 Systolic blood ijtobjkb623 mm[Hg]April Ahumada MD Work Phone: 1(120)215-[address] [place], [place] 256[address]10-13-2025 14:46-0400 Body .6 cmArgentina Richter MD Work Phone: [facility]10-13-2025 14:46-0400Body mass index (BMI) [Ratio]58.88 kg/j6PgmldfdArgentina Richter MD Work Phone: [facility]10-13-2025 14:46-0400Body dcrbbirjozm46.2 [degF]Argentina Richter MD Work Phone: [facility]10-13-2025 14:46-0400Body tgyoni268.47 kgArgentina Richter MD Work Phone: [facility]10-13-2025 11:30-0400Body ecasqt423.11 cmApril Ahumada MD Work Phone: 1(230)439-68[facility]10-13-2025 11:30-0400 Body mass index (BMI) [Ratio]61 kg/s5LfwockApril Ahumada MD Work Phone: 1(133)187-49[facility]10-13-2025 11:30-0400 Body .35 kgApril Ahumada MD Work Phone: 1(290)033-18[facility]10-13-2025 11:30-0400 Diastolic blood ihkosaus04 mm[Hg]April Ahumada MD Work Phone: 1(957)737-72[facility]10-13-2025 11:30-0400 Heart rate59 /Cherise Ahumada MD Work Phone: 1(690)270-37[facility]10-13-2025 11:30-0400 Respiratory rate18 /Cherise Ahumada MD Work Phone: 1(623)[address]10-13-2025 11:30-0400 Systolic blood dlvmuwzr741 mm[Hg]April Ahumada MD Work Phone: 1(422)[address]10-09-2025 13:49-0400 Body ihkgjb515.64 cmApril Ahumada MD Work Phone: 1(602)[address]10-09-2025 13:49-0400 Body mass index (BMI) [Ratio]58.7 kg/e5RuedgqApril Ahumada MD Work Phone: 1(846)[address] [place], [place] 6004010-09-2025 13:49-0400 Body jsqahm921.1 kgApril Ahumada MD Work Phone: 1(213)[address] [place], [place] 6004010-09-2025 13:49-0400 Diastolic blood mnjlsmyw78 mm[Hg]April Ahumada MD Work Phone: 1(852)[address] [place], [place] 6004010-09-2025 13:49-0400 Heart rate75 /Cherise Ahumada MD Work Phone: 1(064)[address] [place], [place] 6004010-09-2025 13:49-0400 Systolic blood mefzhkyz033 mm[Hg]April Ahumada MD Work Phone: 1(058)[address]10-02-2025 15:34-0400 Body .6 cmLisa Krotzer DATA CENTER MANAGER-CONSUMER PRODUCT ADVISOR Work Phone: [facility]10-02-2025 15:34-0400Body mass index (BMI) [Ratio]58.36 kg/m2Lisa Krotzer DATA CENTER MANAGER-CONSUMER PRODUCT ADVISOR Work Phone: [facility]10-02-2025 15:34-0400Body ohaznl573.02 kgLisa Krotzer DATA CENTER MANAGER-CONSUMER PRODUCT ADVISOR Work Phone: [facility]10-02-2025 15:34-0400Diastolic blood kmyhpejf64 mm[Hg]Trice Darrell DATA CENTER MANAGER-CONSUMER PRODUCT ADVISOR Work Phone: [facility]10-02-2025 15:34-0400Systolic blood pznhpnou662 mm[Hg]Trice Ramírez DATA CENTER MANAGER-CONSUMER PRODUCT ADVISOR Work Phone: [facility]09-19-2025 09:38-0400Body alqngq119.64 cmApril Ahumada MD Work Phone: 1(662)641[facility]02[facility]09-19-2025 09:38-0400 Body mass index (BMI) [Ratio]59.3 kg/s9BtcphxApril Ahumada MD Work Phone: 1(881)430[facility]01[facility]09-19-2025 09:38-0400 Body uwhmwp263.92 kgApril Ahumada MD Work Phone: 1(271)[address]09-12-2025 13:57-0400 Body dlegdg832.64 cmApril Ahumada MD Work Phone: 1(389)[address]09-12-2025 13:57-0400 Body mass index (BMI) [Ratio]59.3 kg/s3AtakoiApril Ahumada MD Work Phone: 1(926)436[facility]72[facility]09-12-2025 13:57-0400 Body objvkt834.92 kgApril Ahumada MD Work Phone: 1(068)150-54[facility]09-12-2025 13:57-0400 Diastolic blood iplrdheo80 mm[Hg]April Ahumada MD Work Phone: 1(846)184-[address] [place], [place] 2562409-12-2025 13:57-0400 Heart rate66 /minApril Ahumada MD Work Phone: 1(374)502-[address] [place], [place] 2562409-12-2025 13:57-0400 Systolic blood ytxftxok390 mm[Hg]April Ahumada MD Work Phone: 1(497)508-42[facility]09-02-2025 14:32-0400 Body wybhxf985.64 cmApril Ahumada MD Work Phone: 1(579)688-60[facility]09-02-2025 14:32-0400 Body mass index (BMI) [Ratio]59.7 kg/j3UjdskkApril Ahumada MD Work Phone: 1(616)[address]09-02-2025 14:32-0400 Body siyrmm483.82 kgApril Ahumada MD Work Phone: 1(972)[address] [place], [place] 6004009-02-2025 14:32-0400 Diastolic blood hzapnfab44 mm[Hg]April Ahumada MD Work Phone: 1(759)[address] [place], [place] 6004009-02-2025 14:32-0400 Heart rate76 /Cherise Ahumada MD Work Phone: 1(874)[address] [place], [place] 6004009-02-2025 14:32-0400 Systolic blood wkxevimg326 mm[Hg]April Ahumada MD Work Phone: 1(543)[address] [place], [place] 6004008-28-2025 09:18-0400 Body ytvgfx739.64 cmApril Ahumada MD Work Phone: 1(080)[address] [place], [place] 6004008-28-2025 09:18-0400 Body mass index (BMI) [Ratio]59.2 kg/h3RylnnfApril Ahumada MD Work Phone: 1(304)[address] [place], [place] 6004008-28-2025 09:18-0400 Body gvzxbo021.46 kgApril Ahumada MD Work Phone: 1(300)[address] [place], [place] 6004008-28-2025 09:18-0400 Diastolic blood mm[Hg]April Ahumada MD Work Phone: 1(617)[address] [place], [place] 6004008-28-2025 09:18-0400 Heart rate78 /Cherise Ahumada MD Work Phone: 1(890)[address] [place], [place] 6004008-28-2025 09:18-0400 SaO2% (BldA) [Mass fraction]93 %April Ahumada MD Work Phone: 1(604)[address] [place], [place] 6004008-28-2025 09:18-0400 Systolic blood fydndedo687 mm[Hg]April Ahumada MD Work Phone: 1(362)[address] [place], [place] 6004008-19-2025 15:03-0400 Body wwcvir830.6 cmArgentina Richter MD Work Phone: [facility]08-19-2025 15:03-0400Body mass index (BMI) [Ratio]58.91 kg/h7HybrlaiArgentina Richter MD Work Phone: [facility]08-19-2025 15:03-0400Body .56 kgArgentina Richter MD Work Phone: [facility]08-18-2025 09:57-0400Body .64 cmApril Ahumada MD Work Phone: 1(803)[address]08-18-2025 09:57-0400 Body mass index (BMI) [Ratio]129.8 kg/z4FixkgpApril Ahumada MD Work Phone: 1(398)[address]08-18-2025 09:57-0400 Body muqifh525 kgApril Ahumada MD Work Phone: 1(785)[address]08-18-2025 09:57-0400 Diastolic blood yqvaessa04 mm[Hg]April Ahumada MD Work Phone: 1(810)[address]08-18-2025 09:57-0400 Heart rate71 /Cherise Ahumada MD Work Phone: 1(953)[address]08-18-2025 09:57-0400 Systolic blood eymwijql355 mm[Hg]April Ahumada MD Work Phone: 1(802)[address]08-14-2025 20:00-0400 Diastolic blood gjkqlsxo23 mm[Hg]April Ahumada MD Work Phone: 1(990)[address]08-14-2025 20:00-0400 Heart rate75 /Cherise Ahumada MD Work Phone: 1(878)[address]08-14-2025 20:00-0400 SaO2% (BldA) [Mass fraction]94 %April Ahumada MD Work Phone: 1(262)882-79[facility]08-14-2025 20:00-0400 Systolic blood qdaqphed525 mm[Hg]April Ahumada MD Work Phone: 1(100)[address]08-14-2025 18:45-0400 Respiratory rate20 /minApril Ahumada MD Work Phone: 1(750)[address]08-14-2025 15:41-0400 Body hlavja651.64 cmApril Ahumada MD Work Phone: 1(029)[address]08-14-2025 15:41-0400 Body kdezevvlufy62.5 [degF]April Ahumada MD Work Phone: 1(014)[address]08-14-2025 15:41-0400 Body kbhjyw821 kgApril Ahumada MD Work Phone: 1(660)[address] [place], [place] 6004007-02-2025 11:06-0400 Body gugnfo683.64 cmApril Ahumada MD Work Phone: 1(696)[address] [place], [place] 6004007-02-2025 11:06-0400 Body mass index (BMI) [Ratio]58.6 kg/v5LsroquApril Ahumada MD Work Phone: 1(737)[address]07-02-2025 11:06-0400 Body jhfluuxgotc99 [degF]April Ahumada MD Work Phone: 1(130)[address] [place], [place] 6004007-02-2025 11:06-0400 Body kufffd811.65 kgApril Ahumada MD Work Phone: 1(371)[address] [place], [place] 6004007-02-2025 11:06-0400 Diastolic blood cyrgoqco73 mm[Hg]April Ahumada MD Work Phone: 1(155)[address] [place], [place] 6004007-02-2025 11:06-0400 Heart rate63 /Cherise Ahumada MD Work Phone: 1(330)[address] [place], [place] 6004007-02-2025 11:06-0400 SaO2% (BldA) [Mass fraction]97 %April Ahumada MD Work Phone: 1(317)[address]07-02-2025 11:06-0400 Systolic blood ohajjtrg373 mm[Hg]April Ahumada MD Work Phone: [facility]04-23-2025 09:49-0400 Body enxayt450.64 cm[facility]04-23-2025 09:49-0400Body mass index (BMI) [Ratio]58.6 kg/r6KzvbkvlleSouthview Medical Center04-23-2025 09:49-0400Body .65 kgSouth[facility] Center04-23-2025 09:49-0400Diastolic blood hwiwjbzu39 mm[Hg][facility] 10-16-2024 09:49-0400Heart rate72 /minSouthview Medical Center 10-16-2024 09:49-0400Systolic blood hkzujnes474 mm[Hg][facility]04-15-2025 10:21-0400Body gwpyph544.6 cmLiam Waggoner MD Work Phone: [facility] HospitalNwcapaoyal87-76-4250 10:21-0400Body mass index (BMI) [Ratio]58.43 kg/f3QexkarLiam Waggoner MD Work Phone: [facility] HospitalHvtejnhmcb92-91-7857 10:21-0400Body trozrp030.2 kgLiam Waggoner MD Work Phone: [facility] HospitalWkmwtrjlmp45-78-3236 10:21-0400Diastolic blood imizqwvx41 mm[Hg]Liam Waggoner MD Work Phone: [facility] HospitalHimlkthmqo96-24-0714 10:21-0400Heart rate76 /min Liam Waggoner MD Work Phone: [place] [address]Grbrbuzrpg84-87-6409 10:21-0400Systolic blood splvukgf324 mm[Hg]Liam Waggoner MD Work Phone: [facility] HospitalQesydoveay76-65-7604 11:06-0400Body hqtyqi560.64 cmSouth[facility] Center04-10-2025 11:06-0400Body mass index (BMI) [Ratio]58.4 kg/c3AaefqfmanSouthview Medical Center04-10-2025 11:06-0400Body omhkjw186.2 kgSouthview Medical Center04-10-2025 11:06-0400Diastolic blood ixzjhwgf42 mm[Hg][facility]04-10-2025 11:06-0400 Heart rate77 /[facility]04-10-2025 11:06-0400Systolic blood vfmtmtot809 mm[Hg][facility]03-20-2025 09:06-0400 Body idefjz406.64 cmSouth[facility] Center03-20-2025 09:06-0400Body mass index (BMI) [Ratio]59.3 kg/i5TxggidfooSouthview Medical Center03-20-2025 09:06-0400Body whhmvy006.58 kgSouth[facility] Medical Center03-20-2025 09:06-0400Diastolic blood tkovnlfa58 mm[Hg][facility] 09-12-2024 09:06-0400Heart rate66 /[facility] 09-12-2024 09:06-0400Systolic blood frogztkx542 mm[Hg][facility]02-24-2025 15:00-0500Body nytnno852.64 cmSouth[facility] Medical Center02-24-2025 15:00-0500Body mass index (BMI) [Ratio]57.2 kg/s3EjghtjgdsSouthview Medical Center02-24-2025 15:00-0500Body swwkka069 kgSouthview Medical Center02-24-2025 15:00-0500Diastolic blood wiuksttn63 mm[Hg][facility]02-24-2025 15:00-0500Heart rate61 /[facility]02-24-2025 15:00-0500Respiratory rate18 /[facility]02-24-2025 15:00-6392CcS5% (BldA) [Mass fraction]96 %[facility]02-24-2025 15:00-0500Systolic blood pebkwwxz009 mm[Hg] [facility]02-18-2025 14:16-0500Body giwukc047.6 cmLiam Waggoner MD Work Phone: 1(419)[address] [place], [place] 1471902-18-2025 14:16-0500Body mass index (BMI) [Ratio]58.91 kg/n0MedoinLiam Waggoner MD Work Phone: 1(505)[address] [place], [place] 1471902-18-2025 14:16-0500Body ujqrcr185.56 kgLiam Waggoner MD Work Phone: 1(116)[address] [place], [place] 1471902-18-2025 14:16-0500Diastolic blood wmubsidv98 mm[Hg]Liam Waggoner MD Work Phone: 1(655)[address] [place], [place] 1471902-18-2025 14:16-0500Heart rate66 /min Liam Waggoner MD Work Phone: 1(051)[address] [place], [place] 1471902-18-2025 14:16-0500Systolic blood dimfbduq497 mm[Hg]Liam Waggoner MD Work Phone: 1(706)[address] [place], [place] 1471911-18-2024 13:18-0500Body dbfaeh111.64 cmSouth[facility] Center11-18-2024 13:18-0500Body mass index (BMI) [Ratio]57.6 kg/j2QxtkgafkgSouthview Medical Center11-18-2024 13:18-0500Body zrsdkyumfbd82.6 [degF][facility]11-18-2024 13:18-0500Body balkqi927.93 kgSouthview Medical Center11-18-2024 13:18-0500Diastolic blood rmlksirl02 mm[Hg][facility]11-18-2024 13:18-0500 Heart rate66 /minSouthview Medical Center11-18-2024 13:18-0500Systolic blood dprvmzla398 mm[Hg][facility]10-22-2024 11:35-0400 Body eaqzsh870.6 cmLiam Waggoner MD Work Phone: 1(583)[address] [place], [place] 1471910-22-2024 11:35-0400Body mass index (BMI) [Ratio]57.46 kg/f6ZsjufiLiam Waggoner MD Work Phone: 1([phone] HospitalUzoigrkvdw11-70-1658 11:35-0400Body yyaqrm288.48 kgLiam Waggoner MD Work Phone: [facility] HospitalVkwimxailk95-24-0948 11:35-0400Diastolic blood jclasqwx90 mm[Hg]Liam Waggoner MD Work Phone: [facility] HospitalBqwuytxdqj75-37-5680 11:35-0400Systolic blood dljayttn442 mm[Hg]Liam Waggoner MD Work Phone: [facility] HospitalCmhyzobqlx76-27-9673 11:09-0400Body wabhmz593.64 [facility]10-07-2024 11:09-0400Body mass index (BMI) [Ratio]57.9 kg/x6GipeidlidSouthview Medical Center10-07-2024 11:09-0400Body ahiooz577.83 [facility]10-07-2024 11:09-0400Diastolic blood mm[Hg][facility]10-07-2024 11:09-0400 Heart rate68 /[facility]10-07-2024 11:09-0400 Respiratory rate16 /[facility]10-07-2024 11:09-0400 SaO2% (BldA) [Mass fraction]97 %[facility]10-07-2024 11:09-0400Systolic blood utqpoopy148 mm[Hg][facility] 01-03-2024 11:50-0400Body fecqql838.64 cmSouth[facility] Medical Center 01-03-2024 11:50-0400Body mass index (BMI) [Ratio]57.9 kg/v2SmpqdvybkSouthview Medical Center07-10-2024 11:50-0400Body fcbatr386.83 [facility]07-10-2024 11:50-0400Diastolic blood otvhcgaw74 mm[Hg][facility]07-10-2024 11:50-0400Heart rate66 /[facility]07-10-2024 11:50-0400Systolic blood nlywkbgz227 mm[Hg][facility]06-25-2024 11:22-0400Body .64 cmSouth[facility] Medical Center06-25-2024 11:22-0400Body mass index (BMI) [Ratio]56.8 kg/e4FzypzgculSouthview Medical Center06-25-2024 11:22-0400Body jhewdx175.66 kg [facility]06-25-2024 11:22-0400Diastolic blood phxscnra16 mm[Hg][facility]06-25-2024 11:22-0400Heart rate63 /min [facility]06-25-2024 11:22-0400Systolic blood seryxxxc239 mm[Hg][facility]06-17-2024 11:34-0400Body wsjafu362.64 cmSouthview Medical Center06-17-2024 11:34-0400Body mass index (BMI) [Ratio]57.2 kg/s6RsdtizvhbSouthview Medical Center06-17-2024 11:34-0400Body bduebg293.02 [facility]06-17-2024 11:34-0400Diastolic blood vaksarwd60 mm[Hg][facility]06-17-2024 11:34-0400 Heart rate67 /[facility]06-17-2024 11:34-0400Systolic blood xtridmnw149 mm[Hg][facility]06-11-2024 11:02-0400 Body umotri010.64 cmSouth[facility] Medical Center06-11-2024 11:02-0400Body mass index (BMI) [Ratio]57.6 kg/n5QljdoatmeSouthview Medical Center06-11-2024 11:02-0400Body .93 [facility]06-11-2024 11:02-0400Diastolic blood ynskukrg75 mm[Hg][facility] 12-05-2023 11:02-0400Heart rate67 /[facility] 12-05-2023 11:02-0400Systolic blood zyqvnhxe038 mm[Hg][facility]05-09-2024 15:17-0400Body wyhayd426.64 cmSouth[facility] Medical Center05-09-2024 15:17-0400Body mass index (BMI) [Ratio]58.7 kg/l7GrrmdxmlnSouthview Medical Center05-09-2024 15:17-0400Body scdvta230.1 kgSouthview Medical Center05-09-2024 15:17-0400Diastolic blood mm[Hg] [facility]05-09-2024 15:17-0400Heart rate76 /minSouthview Medical Center05-09-2024 15:17-0400Systolic blood fmozaquh392 mm[Hg] [facility]12-22-2023 11:45-0500Body dqibzr674.64 cmNhungjeannette Ahumada Other [employer] Other 12-22-2023 11:45-0500Body mass index (BMI) [Ratio] 56.49 kg/y9Jhojqu Ede Other [employer] Other 12-22-2023 11:45-0500Body okzhvk579.76 kgNhungjeannette Ede Other [employer] Other 12-22-2023 11:45-0500Diastolic blood frwgncpu02 mm[Hg] April Ahumada Other [employer] Other 12-22-2023 11:45-0500Systolic blood fvhmyryy327 mm[Hg] April Ahumada Other [employer] Other 10-26-2023 10:30-0400Body wvyotr332.64 cmBrigitte Mckay Other [employer] Other 10-26-2023 10:30-0400Body mass index (BMI) [Ratio] 58.91 kg/x2BhbazgbaBrigitte Mckay Other [employer] Other 10-26-2023 10:30-0400Body cwotfxnvncu49 [degF]Brigitte Finer Other [employer] Other 10-26-2023 10:30-0400Body empqed992.56 kgBrigitte Mckay Other [employer] Other 10-26-2023 10:30-0400Respiratory rate18 /minBrigitte Mckay Other [employer] Other 10-26-2023 10:30-9163AiB2% (BldA) [Mass fraction]97 % Brigitte Walljoanne Other [employer] Other 08-29-2023 11:00-0400Body smdbos571.64 cmApril Ahumdaa Other [employer] Other 08-29-2023 11:00-0400Body mass index (BMI) [Ratio] 59.07 kg/d5ZloormApril Ahumada Other [employer] Other 08-29-2023 11:00-0400Body rojglr782.02 kgApril Ahumada Other [employer] Other 08-29-2023 11:00-0400Diastolic blood meplnvob81 mm[Hg] April Ahumada Other [employer] Other 08-29-2023 11:00-0400Systolic blood lafklraz180 mm[Hg] April Ahumada Other [employer] Other 03-14-2023 11:30-0400Body ebanrk911.64 Rob Nichole Other [employer] Other 03-14-2023 11:30-0400Body mass index (BMI) [Ratio] 57.13 kg/l2Miuua Nichole Other [employer] Other 03-14-2023 11:30-0400Body myrkcq396.57 kgPeggy Nichole Other [employer] Other 03-14-2023 11:30-0400Diastolic blood wudqjrni05 mm[Hg] Bianka Nichole Other [employer] Other 03-14-2023 11:30-4294DwZ7% (BldA) [Mass fraction]98 % Bianka Nichole Other [employer] Other 03-14-2023 11:30-0400Systolic blood mm[Hg] Bianka Nichole Other [employer] Other 01-01-2023 14:53-0500Body yxepyhjddkx08.1 [degF] Services [employer] Phone: [facility]01-01-2023 14:53-0500 Diastolic blood shighjzb17 mm[Hg]Services [employer] Phone: [facility]01-01-2023 14:53-0500 Heart rate71 /[employer] Work Phone: [facility]01-01-2023 14:53-0500 Respiratory rate18 /[employer] Work Phone: [facility]01-01-2023 14:53-0500 SaO2% (BldA) [Mass fraction]96 %Services [employer] Phone: [facility]01-01-2023 14:53-0500 Systolic blood vilqsbao131 mm[Hg]Services [employer] Phone: [facility]01-01-2023 14:50-0500 Body zhsxqy511.64 cmServices [employer] [facility] Work Phone: [facility]01-01-2023 14:50-0500 Body oyuhpp081.4 kgServices [facility] Work Phone: [facility]10-16-2022 11:10-0400 Body bdvgse312.64 cmAmbdayanna Nelson Other [employer] Other 10-16-2022 11:10-0400Body mass index (BMI) [Ratio] 59.71 kg/a7MiinfNicole Nelson Other [employer] Other 10-16-2022 11:10-0400Body ycmechpvsqn56.8 [degF]Nicole Nelson Other [employer] Other 10-16-2022 11:10-0400Body ptafgl557.83 kgNicole Nelson Other [employer] Other 10-16-2022 11:10-0400Respiratory rate18 /minNicole Nelson Other [employer] Other 10-16-2022 11:10-5784GqW0% (BldA) [Mass fraction]93 % Nicole Nelson Other noShortlist Other Encounters Encounter DateEncounter [facility] ProviderFacilityStart: 05-07-2025 End: 33-78-1662[place] flowsheetCorey Christiana DO Work Phone: NONL [facility]BGYNStart: 05-07-2025 End: 53-05-7133Hdpoyv flowsheetCorey Christiana DO Work Phone: NO [facility]BGYNStart: 05-07-2025 End: 19-40-7206[facility] new 20 minutesCorey Christiana DO Work Phone: NO [facility] OBGYNComment on above:Menorrhagia with regular cycleStart: 05-07-2025 End: 93-37-2995zbpurlptokFVDKY FAYESSICAONot AvailableStart: 04-29-2025 End: 61-50-3160vxvfftsdjrLruzgi E Braun MD Work Phone: [phone]-Dpygrmgrn Health GastroStart: 04-29-2025 End: 33-25-9529Lxmosww encounter procedurePhilippjoby Clark [facility] Work Phone: Start: 04-28-2025 End: 29-57-6235aqwalpvjnaZiuvby E Braun MD Work Phone: [facility]: 04-28-2025 End: 61-60-3140Slgjobd encounter Leisa Ahumada MD-[facility] Work Phone: Start: 04-23-2025 End: 26-89-3065myeajwecawAkeetr E Braun MD Work Phone: [phone]-Cdwnzktlm Sleep LabStart: 04-23-2025 End: 00-63-7423Ghwifyb encounter procedureKajal Guajardo [facility] Work Phone: Start: 54-76-8843Wwg-patient / Non-visitEly Dodge MD-[facility] Work Phone: Start: 04-16-2025 End: 11-37-8176olfpzbmagpOBQS M KROTZERTrinity Health System East Campustart: 04-07-2025 End: 00-01-7293Setuaj outpatient visit 25 minutesArgentina Richter MD Work Phone: [facility], Nose and ThroatComment on above:Benign paroxysmal vertigo of right ear (Primary Dx); Meniere's disease of right ear; Dizziness; Fullness in ear, bilateralStart: 04-07-2025 End: 91-95-1926vjfkbhvmpsJCPRRPT J [facility] Ambulatory PPGStart: 04-07-2025 End: 30-61-3006jexrchhrmgXtmenh E Braun MD Work Phone: [facility] Work Phone: Start: 04-07-2025 End: 32-14-3484Itfplvn encounter procedureBrigitte Gomez [facility] Work Phone: Start: 04-03-2025 End: 67-93-9836rnfkdcugzsYmfwet E Braun MD Work Phone: [facility] Work Phone: Start: 04-03-2025 End: 77-18-4585Mwpcjno encounter procedureApril Ahumada [facility] Work Phone: Start: 03-27-2025 End: 09-23-9764qbfdnmmgjsCZLQ M [facility] CENTERTEEK[facility] Ambulatory PPGStart: 03-27-2025 End: 42-03-5022Lngialitm for gynecological examination (general) (routine) without abnormal findingsTrice Ramírez DATA CENTER MANAGER-CONSUMER PRODUCT ADVISOR Work Phone: [facility] Work Phone: Start: 03-27-2025 End: 67-26-8563Ftpmpxr preventive medicine new patient 40-64yrsTrice Ramírez DATA CENTER MANAGER-CONSUMER PRODUCT ADVISOR Work Phone: [facility] Physicians Obstetrics/GynecologyComment on above:Well woman exam with routine gynecological exam (Primary Dx); Pap smear, as part of routine gynecological examination; Standardized adult depression screening tool completed; Abnormal uterine bleeding; Encounter for screening mammogram for malignant neoplasm of breastStart: 03-27-2025 End: 26-25-9881Flbyguf encounter procedureTrice Ramírez DATA CENTER MANAGER-CONSUMER PRODUCT ADVISOR Work Phone: [facility] Leversense [facility] Centertart: 03-15-2025 End: 42-59-9672Nyfhkpv encounter procedureAdonis Ferguson APRN-[facility] Work Phone: Start: 03-15-2025 End: 04-08-5951rcseviarhzWnfkos E Braun MD Work Phone: [facility] Work Phone: Start: 03-14-2025 End: 97-22-5001wifqvwlgebWwrpgg E Braun MD Work Phone: [facility] Work Phone: Start: 03-14-2025 End: 63-61-2786Izrulvw encounter mayraAdonis Ferguson DATA CENTER MANAGERMoberly Regional Medical Center Work Phone: Start: 03-07-2025 End: 92-32-1425runvggpvtuQnwubq E Braun MD Work Phone: [facility] Work Phone: Start: 03-07-2025 End: 74-78-9174Sbhhpks encounter procedureApril Ahumada MD-[facility] Work Phone: Start: 03-07-2025 End: 60-58-8999pyfdcrtlkyDTBNNXG J [facility] Hospitaltart: 02-86-2758Tfl-patient / Non-visitApoorfredy Dodge MD-[facility] Work Phone: Start: 03-03-2025 End: 19-27-0076Rypuilqqv department patient visitMARJEANNETTE ValdiviaMediFreeman Cancer Institute HospitalStart: 02-25-2025 End: 49-58-0255zqnrubrrmzQvjvbh E Braun MD Work Phone: [facility] Work Phone: Start: 02-25-2025 End: 46-35-8630Ggqucre encounter Leisa Ahumada MD-[facility] Work Phone: Start: 02-20-2025 End: 42-03-4399uaoymircbxXstvgx E Braun MD Work Phone: [facility] Work Phone: Start: 02-20-2025 End: 07-64-7419Uzjuirq encounter procedureKajal Guajardo [facility] Work Phone: Start: 02-18-2025 End: 33-53-9325Qsgrbomiw encounterArgentina Richter MD Work Phone: [facility] - ENTComment on above: MedicineStart: 34-30-5942ziammwmvteQPUXJA E BRAUNBrown Memorial Hospital Start: 02-11-2025 End: 11-80-2561Cktjub outpatient new 45 minutesMickarma Richter MD Work Phone: [facility] Physicians Ear, Nose and ThroatComment on above:Benign paroxysmal vertigo of right ear (Primary Dx); Meniere's disease of right ear; Dizziness; Fullness in ear, bilateral; Sleep apnea treated with continuous positive airway pressure (CPAP)Start: 02-11-2025 End: 80-82-4716Bucdrqav SupportPike Community Hospital Ent Audio 1ProMedgreene county hospital Physicians Ear, Nose and ThroatComment on above:Dizziness (Primary Dx); Fullness in ear, bilateral; Tinnitus of both earsStart: 02-10-2025 End: 58-31-5202uijhokoekaYcxwee E Braun MD Work Phone: [facility] Work Phone: Start: 02-10-2025 End: 89-19-5518Intjkns encounter procedureApril Ahumada MD-[facility] Work Phone: Start: 15-47-9870Zai-patient / Non-visitCatherine Cuong FIERRO-[facility] Work Phone: Start: 02-06-2025 End: 26-15-5994Amtapercw department patient visitApril Ahumada MD Work Phone: [phone]-Kntobtsbf Room Work Phone: Start: 12-25-2024 End: 60-31-3176nbhjppdblfYprmcl E Braun MD Work Phone: [facility] Work Phone: Start: 12-25-2024 End: 42-38-2675Vtbrhmo encounter procedureApril Ahumada MD-[facility] Work Phone: Start: 86-30-7920kinqozrofgJjfgdi E Braun Facility:[facility] Hospitaltart: 74-35-3628Nhsqgsijdz Recurring Mendez Doherty MDSEATTLE VA [facility] CredibleStart: 10-16-2024 End: 56-73-4558qljypztiqdOsqjejyccOhioHealth Doctors Hospital Work Phone: Start: 10-16-2024 End: 55-19-2426Ahjvglz encounter procedureCaromont [facility] Work Phone: Start: 10-08-2024 End: 79-73-7161Wggpee flowsheetLiam Waggoner MD Work Phone: noMS CI ENTStart: 10-08-2024 End: 85-42-0261Vrkvlt Sneha Waggoner MD Work Phone: noms CI ENTStart: 10-08-2024 End: 59-65-3181fngwafjgiiIOWDIC H TIMMISNot AvailableStart: 10-08-2024 End: 71-30-2879Airpsz outpatient visit 25 minutesHidarcie Waggoner MD Work Phone: noms CI ENTComment on above:Active cochlear Meniere disease of right ear (Primary Dx)Start: 10-03-2024 End: 90-73-1234gglrsfqomzJswogifanOhioHealth Doctors Hospital Work Phone: Start: 10-03-2024 End: 11-95-0847Ntafmqq encounter procedureHallie Physician GroupCity [facility] Work Phone: Start: 09-12-2024 End: 33-19-6276vmtknllzicDtzeownjqOhioHealth Doctors Hospital Work Phone: Start: 09-12-2024 End: 37-10-3402Eujmfzs encounter procedureCaromont [facility] Physician [facility] Work Phone: Start: 08-19-2024 End: 67-83-2590jvhthaikrsIhygdbedbMemorial Health System Work Phone: Start: 08-19-2024 End: 61-40-2844Eglhbfs encounter procedureCaromont [facility] Physician [facility] Work Phone: Start: 08-13-2024 End: 30-29-0088Ycatur outpatient visit 25 minutesHidarcie Waggoner MD Work Phone: noms CI ENTComment on above:Peripheral vestibulopathy of right ear (Primary Dx); Migrainous dizziness; Active cochlear Meniere disease of right earStart: 08-13-2024 End: 04-54-3301gsvfcjfrqwOYBHPK H TIMMISNot AvailableStart: 08-13-2024 End: 45-00-4122Igswim flowsheetHidarcie Waggoner MD Work Phone: noms CI ENTStart: 08-13-2024 End: 39-25-0811Restmr flowsheetLiam Waggoner MD Work Phone: noms CI ENTStart: 07-30-2024 End: 60-96-8542Vzjmbdpuw encounterHidarcie Waggoner MD Work Phone: noms ENT NORWALKStart: 07-29-2024 End: 98-04-1856Bsdifbpd SupportLabrennen Heenarima TORRES Work Phone: [facility] - AudiologyComment on above:Dizziness and giddiness (Primary Dx)Start: 05-13-2024 End: 08-38-8916thqxjgawkqZegqmqufaMemorial Health System Work Phone: Start: 05-13-2024 End: 70-75-1832Nqavxsl encounter procedureCaromont Regional [facility] Physician [facility] Work Phone: Start: 04-16-2024 End: 44-04-7172Eniaxr Sneha Waggoner MD Work Phone: noMS CI ENTStart: 04-16-2024 End: 17-09-8688Qmghjm Sneha Waggoner MD Work Phone: noMS CI ENTStart: 04-16-2024 End: 05-96-5198Pdzmfh outpatient new 45 minutesLiam Waggoner MD Work Phone: noMS CI ENTComment on above:Sensorineural hearing loss (SNHL) of right ear with unrestricted hearing of left ear (Primary Dx); Dizziness and giddiness; Migraine without status migrainosus, not intractable, unspecified migraine type ([facility]/HCC)Start: 04-01-2024 End: 75-33-8577lfslwqnmfqSyggksjimOhioHealth Doctors Hospital Work Phone: Start: 04-01-2024 End: 70-51-1877Wrfyiwq encounter procedureCaromont [facility] Physician [facility] Work Phone: Start: 02-21-2024 End: 13-83-1694Drhytc flowsheetMyriam Najera CCC-A Work Phone: noMS CI AUDStart: 02-21-2024 End: 08-69-5095Imeaxv flowsheetMyriam Clark Dania CCC-A Work Phone: [facility] CI AUDStart: 02-21-2024 End: 53-26-6731Sngpkqay SupportDeamor Najera CCC-A Work Phone: noMS CI AUDComment on above:Sensorineural hearing loss (SNHL) of both ears (Primary Dx); VertigoStart: 01-03-2024 End: 04-18-0234lwrbhivlxzHuvxyxrxqOhioHealth Doctors Hospital Work Phone: Start: 01-03-2024 End: 19-37-9799Yodxfqj encounter procedureFirelands Physician Group-[facility] Work Phone: Start: 12-19-2023 End: 23-33-6750ordeymzprwOlxpzpgxlMemorial Health System Work Phone: Start: 12-19-2023 End: 96-60-9229Evvpmli encounter procedureFirelands Physician Group-[facility] Work Phone: Start: 12-11-2023 End: 91-98-6244hlcgacezafSdtyrxpveMemorial Health System Work Phone: Start: 12-11-2023 End: 43-16-7306Egxfhff encounter procedureFirelands Physician Group-[facility] Work Phone: Start: 12-05-2023 End: 62-98-8108hbaflrevsuTddtaktvmMemorial Health System Work Phone: Start: 12-05-2023 End: 26-61-7119Kunrqsm encounter procedureFirfort waynes Physician Group-[facility] Work Phone: Start: 11-02-2023 End: 93-71-9756klchypkgawOzpqdjhxiMemorial Health System Work Phone: Start: 11-02-2023 End: 70-05-7654Zizdyry encounter procedureFirelands Physician Group-[facility] Work Phone: Start: 71-90-3798Gks-patient / Non-visitFirfort waynes Physician Group-[facility] Professional [employer] Work Phone: Start: 06-20-2023 End: 30-62-4406llisswyssnNvybli Ede Other [employer] Other Start: 05-14-6025Fsaquepce encounterMarjeannette AhumadaUniversity Hospitals Beachwood Medical Centertart: 06-16-2023 End: 79-51-8896cpkpsxnaklFweurs Ede Other noOutline [employer] Other Start: 39-95-4576Ovlhwl outpatient visit 15 minutes April [facility] ClinicStart: 06-15-2023 End: 78-53-6362gezfdbwqmhVwwtwy Ahumada Other [employer] Other Start: 71-68-6200Tihigqeeu encounterApril Ramachandran Medical ClinicStart: 06-12-2023(Televisit) TelevisitApril [facility]ran Medical ClinicStart: 06-12-2023 End: 62-51-0542mrdogrxewyVoxqna Ahumada Other [employer] Other Start: 06-05-2023 End: 05-84-0523lqcsmoimesCgqlwk Ede Other [employer] Other Start: 41-66-6732Lwkmkxkxf encounterApril Ramachandran Medical ClinicStart: 04-20-2023 End: 50-67-6430mcnydeqhegLrodwxnw Rohrbacher Other [employer] Other Start: 40-61-6131Isktdu outpatient visit 15 minutes Brigitte V[facility]quez [facility] ClydeStart: 02-21-2023(PHYS) PhysicalApril Ramachandran Medical ClinicStart: 02-21-2023 End: 18-43-2389rawdrdxdlxDztqld Ede Other [employer] Other Start: 20-79-9673Bxtwufidb for general adult medical examination without abnormal findingsApril Ramachandran Medical ClinicStart: 50-49-5241Mhpflupgz encounterApril [facility]achandran Medical ClinicStart: 28-91-6315Ipbynr outpatient visit 15 minutesPeggy [facility] SouthStart: 09-06-2022 End: 18-95-1035ioykrknykqUbwkvptj Family [facility] Work Phone: [facility] Work Phone: Start: 09-06-2022 End: 13-24-5866Noluqpu encounter procedureServices Family Health Work Phone: [facility]-Sleep Lab Work Phone: Start: 08-03-2022 End: 62-35-4764bxpdfxiftdJynhsrz Jordy Other noShortlist Other Start: 97-20-3972Radbtsypx encounterDeEncompass Health Rehabilitation Hospital of Erie ClinicStart: 06-26-2022 End: 48-44-9495Lpxjokowj department patient visitServices [facility] Work Phone: [facility]-Emergency Room Work Phone: Start: 04-10-2022 End: 09-37-8461dghzckztjaDilbc Keller Other noOutline [employer] Other Start: 99-30-9841Ztanib outpatient visit 25 minutes Nicole OmarRubén Urgent Care ClydeStart: 52-51-4270hmhieopfyiNcnzydvq:9090Start: 03-23-2022 End: 58-15-7297iaecjtylrnAtpdqdzc Family [facility] Work Phone: [facility] Work Phone: Start: 03-23-2022 End: 52-92-1785Zfxroyc encounter procedureServices [facility] Work Phone: [facility]-Electrodiagnostics Start: 02-21-2022 End: 67-92-3052vqsyhwgvugFdek Fitt Other noShortlist Other Start: 02-22-2299Szvgrzlpe encounterDawn [facility] ClinicStart: 02-07-2022 End: 48-82-6963Tiamjshn ReferredServicHealthSouth Medical Center Work Phone: [facility] ServicesStart: 02-07-2022 End: 73-06-1372erkohtrgiyAoixfcxqr Breault Other [employer] Other Start: 10-82-5089Xhaeoe outpatient visit 5 minutes Dominique Ruth [facility] ClydeStart: 01-31-2022 End: 64-81-2376Lbebykq encounter procedureServices [facility] Work Phone: [facility]-Lab Main CampusStart: 01-10-2022 End: 74-61-7177Egbyqbvc ReferredSerMartinsville Memorial Hospital Work Phone: [facility]-Corporate Health [address] Start: 07-02-2021 End: 03-56-4809yoiteefdzeOHHLRA ROSSFacility:A1Lscme: 06-30-2021 End: 25-04-6985nvmuaogpcdWRGBPE ROSSFacility:Z1Bweel: 06-03-2021 End: 16-92-1192gyxjrnqzbsSIBGFB ROSSFacility:K5Vjzsj: 09-18-2020 End: 14-85-1733loztvbyxhzSM NONE LISTED REQUESTFacility:F9Bovle: 08-07-2020 End: 10-07-7571wlsuuzfoetPQAWHB MOOREFacility:H1 Procedures DateProcedureProcedure DetailPerforming ClinicianStart: 27-81-4117Ohpsucuquhc David Christiana DO Work Phone: Start: 69-04-8329Qxrbog-up visitFollow-upMICHAEL J DISHERStart: 12-04-9554Cmkbt depression screening assessmentTrice Ramírez APRN-CONSUMER PRODUCT ADVISOR Work Phone: Start: 82-89-9874Gzchygayygq observation [Identifier] in Cervix by Cyto stainLisa Ramírez DATA CENTER MANAGER-CONSUMER PRODUCT ADVISOR Work Phone: Start: 51-24-6363Bjqplxozre antibody IgA levelApril Ahumada MD Work Phone: Start: 77-75-2987Zekvpm scan of lower limb veinsApril Ahumada MD Work Phone: Start: 20-88-0173Qbpjw chest X-rayApril Ahumada MD Work Phone: Start: 14-01-0724WWOJDLSV FUNCTION TESTSDeklickitat valley healthcon [facility]-A Work Phone: start: 46-80-8031Wpfva chest X-rayServices [facility] Work Phone: Start: 74-11-7390VRRT-CoV-2, Influenza & RSV (PCR) Services [facility] Work Phone: Plan of Treatment DateCare ActivityDetailAuthorStart: 32-42-5139IHdC,Tdap and Td Vaccines (2 - Td or Tdap)DTaP,Tdap and Td Vaccines (2 - Td or Tdap)[facility] SystemStart: 01-17-7784Rzoejwmof for malignant neoplasm of cervixNOMS HealthcareStart: 22-88-9137Pqfaueqtx for malignant neoplasm of cervixPap SmearKettering Health Main Campus SystemStart: 85-32-8546Hzuosmkjm for malignant neoplasm of breastMammogramNOMS HealthcareStart: 75-88-2965Agcjw BMI ScreeningAdult BMI ScreeningKettering Health Main Campus SystemStart: 59-94-4056Izboc BMI Follow Up PlanAdult BMI Follow Up Plan [facility] SystemStart: 74-89-1117Xorfw BMI ScreeningAdult BMI Screening [facility] SystemStart: 74-54-4287Vfcyggcgqo ScreeningDepression Screening [facility] SystemStart: 21-76-8127Ovjdsdt ScreeningTobacco Screening [facility] SystemStart: 72-90-8222Dwgrv BMI ScreeningAdult BMI Screening [facility] SystemStart: 70-32-1342Rbdfvgs ScreeningTobacco Screening [facility] SystemStart: 06-16-2025 End: 01-96-7240Vfyjgyr encounter juwwiixhh06/22/2025 3:15 PM EST Office Visit [facility] [address] [place] [address] Argentina Richter MD [address] [facility] [facility] [address] [place]ORRILTONKAMALJIT, [id number] [facility] ThroatStart: 06-11-2025 End: 75-57-6032Belopwg encounter xnmnyuweo66/17/2025 1:30 PM EST Procedure Visit GABRIELA JACOB [address] [place] [address] David Villeda, DO [address] [place] [address] [facility] OBGYNStart: 05-07-2025 End: 49-01-6258Eyufzyg encounter yxnighocb02/12/2025 11:20 AM EST Office Visit GABRIELA JACOB [address] [facility] [place] [address] David Villeda, DO [address] [place] [address] ArrivedNOMS Sun OBGYNComment on above:ArrivedStart: 04-16-2025 End: 16-32-7348Gifrrtk encounter procedureAvita Health System Bucyrus HospitalStart: 04-07-2025 End: 86-53-6233Lxyvqby encounter ymiudrvte70/13/2025 2:15 PM EDT Office Visit [facility] [address] [place] [address] Argentina Richter MD [address] [facility] [address] [facility] [id number] [facility] ThroatStart: 50-64-8799Hwnsuyx referralPike [facility] Hospital Work Phone: Start: 03-27-2025 End: 62-42-1692KNS Breast - bilateral screeningMammography screening bilateral with CAD Imaging Routine Encounter for screening mammogram for malignant neoplasm of breast Expected: 03/27/2025, Expires: 05/25/2026[facility] SystemComment on above:Expected: 03/27/2025, Expires: 05/25/2026Start: 03-27-2025 End: 30-14-1203TC Pelvis transabdominal and transvaginalUltrasound pelvic with transvaginal Imaging Routine Abnormal uterine bleeding Expected: 03/27/2025, Expires: 03/27/2026[facility] Work Phone: Comment on above:Expected: 03/27/2025, Expires: 03/27/2026Start: 11-66-1893NslfasefeMercy Memorial Hospitaltart: 03-07-2025 [facility] Work Phone: Start: 03-07-2025 End: 79-77-0998Qvktsrp encounter qgoyijrdd89/12/2025 10:45 AM EDT Appointment [facility] - [facility] Imaging [address] [place] [address] [facility] - MRI ImagingStart: 17-90-0215AUVXQ-19 Vaccine ( season)COVID-19 Vaccine ( season)[facility] Countytart: 46-90-4238GwnkbqtfzMartinsville Memorial HospitalStart: 02-20-2025 End: 77-83-8729Mopfhur encounter qnetlbfsl40/28/2025 7:00 AM EDT Appointment [facility] [address] [place] [address] Meniere's disease of right ear; DizzinessProBaptist Medical Center South - Total RehabComment on above:Meniere's disease of right ear; DizzinessStart: 02-11-2025 End: 43-56-3299GX Brain and Internal auditory canal WO and W contrast IVMR brain IAC with and without contrast Imaging Routine Meniere's disease of right ear Dizziness Expected: 02/11/2025, Expires: 02/11/2026[facility] Work Phone: Comment on above:Expected: 02/11/2025, Expires: 02/11/2026Start: 98-74-7229Iyuauyr referralPike Community Hospital Work Phone: Start: 24-46-3573Dcfxvr scan of lower limb veinsUS venous duplex LE RTMercy Memorial Hospitaltart: 80-17-9968YT Lower extremity vein - [facility]sontart: 53-74-3641Uiecgwk [facility] Work Phone: Start: 45-52-8894Mwygrbp [facility] Work Phone: Start: 08-13-2024 End: 70-04-4236Vudyxoj encounter procedureNOMS CI ENTComment on above:Arrived Start: 05-08-2024 End: 79-21-3688Tpbjyts encounter /13/2024 9:40 AM EST Office Visit [facility] [address] [place] [address] Jane Kc, [address] [place] [address] [facility] ROUTEStart: 07-03-6710Mlgbgxozt for malignant neoplasm of breastMammogramNOMS HealthcareStart: 04-16-2024 End: 02-57-4636Jgrxqcf encounter rbxrwdewb80/22/2024 11:30 AM EDT Office Visit [facility] [address] [facility] [address] [place] [id number] Liam Waggoner MD [address] [place], [place] [id number] ArrivedNOMS CI ENTComment on above:ArrivedStart: 02-28-2024 End: 60-71-9632Unjmoas encounter uihbafxvi13/04/2024 8:40 AM EDT Office Visit [facility] [address] [place] [address] Liam Waggoner MD [address] [place] [address] [address] [place] [address] [facility] CI ENTStart: 63-65-6595FWWHI-19 Vaccine ( season)COVID-19 Vaccine ( season)[facility] SystemStart: 06-98-2542Sucyvbfcg vaccinationNOAL HealthcareStart: 96-83-0602Zgbqsit [facility] Work Phone: Start: 77-09-8045Qpgwo BMI ScreeningAdult BMI ScreeningFormerly [facility] Wake Countytart: 02-07-2022 End: 27-55-8717Othomfos ReferredDeparted ReferredMercy Health St. Elizabeth Youngstown HospitalStart: 00-50-7526Khkzpinlu for malignant neoplasm of cervixNOAL HealthcareStart: 93-90-5398Bflpbypal for malignant neoplasm of cervix Pap SmearNOAL HealthcareStart: 80-21-0437Tlwrk BMI Follow Up PlanAdult BMI Follow Up PlanKettering Health Main Campus SystemStart: 60-73-0203Vswtygchtt Screening Depression ScreeningFormerly [facility] Wake Countytart: 28-28-8455Sreviam Screening Tobacco ScreeningOhioHealth Dublin Methodist Hospital End: 46-04-6275JHN panel - Blood by Automated countCBC without diff Lab Routine Abnormal uterine bleeding 1 Occurrences starting 03/27/2025 until 03/28/2026 [facility] SystemComment on above:1 Occurrences starting 03/27/2025 until 03/28/2026Endomysial antibody IgA levelSouthview Medical Center End: 28-90-9853Deirtedy [Mass/volume] in Serum or PlasmaFerritin Lab Routine Abnormal uterine bleeding 1 Occurrences starting 03/27/2025 until 03/27/2026 [facility] HospitalComment on above:1 Occurrences starting 03/27/2025 until 03/27/2026Gliadin peptide IgA Ab [Units/volume] in SerumSouthview Medical CenterGliadin peptide IgG Ab [Units/volume] in SerumSouthview Medical CenterIgA [Mass/volume] in Serum or PlasmaSouthview Medical Center End: 11-20-0371Mvcg and TIBCIron and TIBC Lab Routine Abnormal uterine bleeding 1 Occurrences starting 03/27/2025 until 03/27/2026[facility] SystemComment on above:1 Occurrences starting 03/27/2025 until 03/27/2026MR Brain WO [facility] HospitalMR Brain WO contrastSouthview Medical CenterPatient [facility] Work Phone: Patient [facility] Work Phone: Thin Prep Pap TestThin Prep Pap Test Pathology and Cytology Routine Pap smear, as part of routine gynecological examination 03/27/2025 4:18 PM [facility] End: 43-38-0187Ahdshyl profile includes TSH GG8Gfbdgac profile includes TSH FT4 Lab Routine Abnormal uterine bleeding 1 Occurrences starting 03/27/2025 until 03/27/2026ProBerger Hospital SystemComment on above:1 Occurrences starting 03/27/2025 until 03/27/2026Tissue transglutaminase IgA Ab [Units/volume] in [facility] WestTissue transglutaminase IgG Ab [Units/volume] in [facility] Immunizations Immunization DateImmunizationNotesCare FohsimriDuctnacm60-78-7205chfpvuolb, injectable, quadrivalent, contains preservativeHilary Ian BETANCUR Work Phone: [facility] HospitalNhtzghmwgi16-12-8235ehybdpshq virus vaccine, unspecified formulationBaptist Children's Hospital Work Phone: [facility] HospitalGetfutpupu55-68-2146iuarhttis, injectable, quadrivalent, contains preservativeLiam Waggoner MD Work Phone: [facility] HospitalZckwolntbn86-25-1437fvpadrv toxoid, reduced diphtheria toxoid, and acellular pertussis vaccine, adsorbedEncompass Health Rehabilitation Hospital Work Phone: [facility] Center10-28-2020influenza, injectable, quadrivalent, preservative freeHilary Ian BETANCUR Work Phone: [facility] HospitalAgeikhyyhk68-27-8296ypmcwtiid, injectable, quadrivalent, contains preservativeHilary Ian BETANCUR Work Phone: [facility] HospitalFrpslcbxnl10-97-6314xxsijvuli, injectable, quadrivalent, preservative freeHilary Ian BETANCUR Work Phone: [facility] HospitalHacrxmnfrf03-63-5873Wxonhqjdj, injectable, Madin Mahi Canine Kidney, preservative free, quadrivalentHilary Ian BETANCUR Work Phone: [facility] HospitalIpijudqmeh27-10-1938awhvdgucp, injectable, quadrivalent, preservative freeHilary Ian BETANCUR Work Phone: [facility] Payers DatePayer CategoryPayerPolicy [id number] [id number] Health Insurance [id number] [employer]ALTH[employer] BENEFITS [id number] 2023-Present [phone] [address] [address] [place] [id number] [id number] Care Other (unspecified)[employer] [id number] 2..9.679210.326319 [id number] 2..1.492072.3.579.2.12580-40-5533Ymnyqnm8180843 2..1.786437.3.579.2.95332-52-6276Gxvapxn9910153 2..1.527342.3.579.2.61463-45-7994Pcvgqzq5951546 2..1.394760.3.579.2.88770-71-1750Ogvppfp3294652 2..1.333754.3.579.2.55110-93-3167Zaizjzj317798412 2..1.895568.3.579.2.04700-49-5880Nlufdqw644423111 2..1.074742.3.579.2.208042-06-2487Scfbpem068716476 2..1.395268.3.579.2.577332-15-4272Mejlods413278646 2..1.161598.3.579.2.214138-69-5312Hcjjxii018597033 2.0.1.068764.3.579.2.241068-89-8615Msortvu272893762 2..1.029006.3.579.2.333074-01-5562Wddaqgo838157658 2..1.141585.3.579.2.273654-69-3125Litvxcy314295995 2..1.443874.3.579.2.247367-08-5374Kvvnrww224543281 2..1.940006.3.579.2.725372-02-9309Gxhqncc427150806 2..1.613189.3.579.2.326911-98-2471Ijwnabz479783767 2..1.828931.3.579.2.628287-76-9230Kkzblcl908742333 2..1.967400.3.579.2.692701-10-7211Jdastmt87328609 2..1.071100.3.579.2.185672-14-3596Nibyxbt3244048 2..1.759475.3.579.2.480714-45-5881Jzshowc2164898 2..1.114229.3.579.2.197677-51-1727Dqfyciw30495023629-84-0894Wfojvgb [id number] 65us9m0t-4m77-61km-7r5u-0n4x65f9c55nTsctruo DUU29112355N h939e61j-4aq9-6ba1-m3u7-v04mszn98y66Mgsemiw7549785218 2..1.888837.77Pezddcw65996553 2..1.949507.3.579.2.077Suoxxck43992687 2.16.840.1.427424.3.579.2.737Muyyvke38212594 2.16.840.1.947061.3.579.2.531 Social History DateTypeDetailFacilityUnknown if ever smokedMercy Health [facility] Hospital Work Phone: Start: 02-07-2024 End: 59-96-9411Vwp Assigned At [facility] [employer] Other Start: 08-17-2021 End: 25-45-6935Suwwhza smoking status NHISNever smoked tobacco (finding) [facility]: 77-17-5815Rbp [facility] At [facility]: 02-06-2024 End: 89-08-1047Rjufspi use and exposureSmokeless tobacco non-userNOMS Healthcare Start: 02-07-2024 End: 93-55-1803Wyibecwfy beverage intakeEx-drinker (finding)[facility] Start: 02-07-2024 End: 64-73-0531Pnwjfoc of Social functionNOMS HealthcareStart: 77-68-7194Rms assigned at birthNot on fileNOMS HealthcareStart: 01-28-2015 End: 05-64-9140VflPaaglf (finding)[facility]art: 03-22-2021 End: 42-64-8974Xuaabqafo beverage intakeCurrent non-drinker of alcohol (finding) [facility]: 43-09-2315WsjahjcbuJnlvwqcGqqEqqetv Health System Start: 04-07-2025 End: 00-27-0395Pbwajon smoking status NHISCurrent some day smokerMartin Memorial Health SystemsNEGATED: Highlighted rowMedina [facility] Clinical Notes 02-10-2021 to 05-07-2025 Note Date & TfqeFyzmZsxylooj73-43-7053 History of Present illness Narrative* Deysi Mercado [...] nursing note reviewed. Exam conducted with a pole shaver present. Vitals: Estimated body mass index is [...] return for embx/preop exam. Documented by Deysi Mercaod LPN on behalf of: David Villeda DO documented in this encounterSaint John's HospitalWgbhgjazvq67-82-7714 History of Present illness Narrative* Argentina Richter [...] both accurate and complete. documented in this [facility]10-13-2025 Instructions* Patient Instructions* Lavinia Washington - 04/07/2025 2:15 PM EDT - MRI reviewed in office today from 03/16/2025 which was unremarkable. - Start topamax as prescribed. - Follow up in 1-2 months. documented in this encounterOhioHealth Dublin Methodist Hospital10-09-2025 Hospital Discharge instructionsAmbulatory Orders* Referral to Cardiology Time Frame: 04/03/25, Location: None [facility] Work Phone: 1(379) 542-596210-02-2025 History of Present illness Narrative* Trice Ramírez APRN-KEITH - 03/27/2025 3:30 PM EDT Annual Well Woman Visit 03/27/2025 Subjective Nati Santos is a pleasant 39 y.o. 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 Periods are irregular, lasting several days. Dysmenorrhea: severe, occurring first 1-2 days of flow. Cyclic symptoms include heavy bleeding, clots,cramping and moodiness. Denies abnormal discharge. Denies pelvic pain. Patient declines STD testing today. She is seeing oncology / hematology in [place] for chronic anemia and they think it is related to patient's frequent / heavy periods. She has not had a pelvic ultrasound. Complaints today: patient is experiencing irregular menses. Relationship status: The patient reports that there is not domestic violence in her life. 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 Follow up as needed. Await pap. Discussed ASCCP screening guidelines. Discussed taking a multivitamin. Discussed Calcium and Vitamin D for prevention of osteoporosis. HPV vaccine is recommended between 9-45 yo. Can be received at [facility] or the [facility]. Discussed need for yearly mammogram after 40 yo. Discussed colon cancer screening recommendations to begin at 45 yo, patient to discuss with PCP. All questions answered. MARKOS Avendaño APRN-CNP Lisa M Krotzer, APRN-CNP 03/27/25 1624 documented in this encounterDunlap Memorial HospitalGanos Hlqywt74-53-5314 Hospital Discharge instructionsAmbulatory Orders* Referral to Gastroenterology Time Frame: 03/07/25, Location: None [facility] Work Phone: 1(623) 225-620808-26-2025 Miscellaneous Notes* Telephone Encounter - Regla Le [...] she needed anything else. documented in this encounterOhioHealth Dublin Methodist Hospital08-26-2025 Telephone encounter Note* Telephone Encounter - Regla Le - 02/18/2025 2:12 PM EDT Patient called 02/18/25, she is requesting valium for her MR scan, she is scheduled 03/07/25. Patienthas been off work since she saw Dr Richter on 02/11/25 due to dizziness and not feeling well. Please advise patient. [facility]08-26-2025 Telephone encounter Note* Telephone Encounter - [...] to us if she needed anything else. Roll20 [id number] History of Present illness Narrative* Argentina Richter [...] control drugs) and increase blood sugar levels. MhuuoweY11 5000mcgSublingual(underthetongue)daily Vitamin B2 (Riboflavin) 200mg Twice Daily [...] with aspirin. Must taper off. 5-HTP (HydrLoxytryptophan) F660-814in-5C28gg daily. Avoid in , liver or kidney disease. Interactions with medications such as carbidopa , triptans, barbiturates, chemotherapy drugs, antibiotics, tramadol. - I would also like her to continue following with neurology for evaluation of headaches. A preventative medication may be beneficial. - [facility] to further evaluate any abnormal pathology that [...] [facility] [place], [place] Meniere's disease of right ear - [facility] [place], [place] - Ambulatory referral to Vestibular Rehab; [...] both accurate and complete. documented in this encounterDunlap Memorial HospitalZumbl Formerly [facility] Southshore HospitalJxdwuc75-38-9722 Instructions* Patient Instructions* Milind Alvarado - 02/11/2025 [...] control drugs) and increase blood sugar levels. QczyrvnQ15 5000mcgSublingual(underthetongue)daily Vitamin B2 (Riboflavin) 200mg Twice Daily [...] with aspirin. Must taper off. 5-HTP (HydrLoxytryptophan) Y940-916hj-0T02cb daily. Avoid in , liver or kidney disease. Interactions with medications such as carbidopa , triptans, barbiturates, chemotherapy drugs, antibiotics, tramadol. - I would also like her to continue following with neurology for evaluation of headaches. A preventative medication may be beneficial. - I will [facility] to further evaluate any abnormal pathology that could be causing her symptoms. - I will also refer her to vestibular therapy for dizziness today. - If symptoms worsen or new symptoms onset, I would like the patient to call the office sooner for re-evaluation. Otherwise she is able to follow up with me after her MRI has been completed. documented in this encounterOhioHealth Dublin Methodist Hospital08-19-2025 History of Present illness Narrative* BRIAN [...] Asymmetry noted: No Reliability: good Speech Audiometry: SRT/HATCHERY HELPER in good agreement WRS: Right Ear: Excellent (100%) Left Ear: Excellent (100%) RECOMMENDATIONS: Follow up with Dr. Argentina Richter Retest hearing should she note changes in her audiologic symptoms Blas Garrido, [facility] Commissioning Specialist documented in this encounterOhioHealth Dublin Methodist Hospital08-18-2025 Evaluation note* Diagnosis Onset Date Resolution [...] deficiency anemiaacuteSept2024 9:25amDyspnea on exertionacuteOctober 2024 1:45pm [facility] Work Phone: 1(363) 404-811408-18-2025 Evaluation note* Diagnosis Onset Date Resolution Status [...] 9:25amBPV (benign positional vertigo)acuteOctober 2024 1:45pmDyspnea on exertionacuteOctmary [facility] 2024 1:45pmGeneralized anxiety disorderacuteOctmary [facility] 2024 1:45pmGERD (gastroesophageal reflux disease)acuteOctmary [facility]ck[facility] 2024 1:45pmMenieres diseaseacuteOctmary [facility] 2024 1:45pmMorbid obesity with body mass index (BMI) of 50.0 to 59.9 in adultacuteOctmary [facility] 2024 1:45pmAnemiainactive April 03, 2025 1:45pmAbnormal weight gainacuteOctmary [facility] 2024 10:38amBMI 60.0-69.9, adultacuteOctmary [facility] 2024 10:38amClass 3 severe obesity with body mass index (BMI) of 60.0 to 69.9 [facility] 20[facility] 10:38am DepressionacuteOctmary [facility] 2024 10:38amDietary surveillance and counseling acuteAsp[facility] 2024 10:38amExercise counselingacuteOctmary [facility] 2024 10:38amGeneralized anxiety disorderacuteOctmary [facility] 2024 10:38amGERD (gastroesophageal reflux disease)acuteOctober 2024 10:38amGlaucomaacute April 07, 2025 10:38amHistory of kidney stonesacuteOctmary [facility] 2024 10:38amHypertensionacuteOctmary [facility] 2024 10:38amIron deficiency anemiaacute April 07, 2025 10:38amMenieres diseaseacuteOctmary [facility] 2024 10:38amOSA on CPAPacuteMarmary [facility] 2024 10:38amType II diabetes mellitusacuteOctober 2024 10:38am [facility] Work Phone: 1(971) 940-668508-18-2025 Evaluation note* Diagnosis Onset Date Resolution Status [...] 10:38am DepressionacuteOctober 2024 10:38amDietary surveillance and counseling acuteOctmary breckinridge hospital 2024 10:38amExercise counselingacuteOctmary [facility] 2024 10:38amGeneralized anxiety disorderacuteOctober 2024 10:38amGERD (gastroesophageal reflux disease)acuteOctober 2024 10:38amGlaucomaacute April 07, 2025 10:38amHistory of kidney stonesacuteOctober 2024 10:38amHypertensionacuteOctmary [facility] 2024 10:38amIron deficiency anemiaacute April 07, 2025 10:38amMenieres diseaseacuteOctober 2024 10:38amOSA on CPAPacuteOctmary [facility] 2024 10:38amType II diabetes mellitusacuteOctober 2024 10:38amHypertensionacuteOctober 2024 8:55amIron deficiency anemia acuteOctober 2024 8:55amOSA on CPAPacuteOctober 2024 8:55amType II diabetes mellitusacuteOctober 2024 8:55amBMI 50.0-59.9, adultnoneactive April 23, 2025 8:55am [facility] Work Phone: 1(609) 782-210408-18-2025 Evaluation note* Diagnosis Onset Date Resolution Status Admit Date Anemia inactiveAugust 2024 9:43amActive cochlear Meniere disease of right ear acuteAugust 2024 9:03amHypertensionacuteAugust 2024 9:03amOSA on CPAPacuteAugust 2024 9:03amType II diabetes mellitusacuteAugust 2024 9:03amBMI 50.0-59.9, adultnoneactiveAugust 2024 9:03amBPV (benign positional vertigo)acuteSeptember 2024 2:16pmMenieres diseaseacuteSeptember 2024 2:16pmMorbid obesity with body mass index (BMI) of 50.0 to 59.9 in adultacuteSeptbanner md [facility] 2024 2:16pmBPV (benign positional vertigo)acute March 07, 2025 1:44pmGeneralized anxiety disorderacuteSept2024 1:44pmMenieres diseaseacutept2024 1:44pmMorbid obesity with body mass index (BMI) of 50.0 to 59.9 in adultacuteSeptbanner md [facility] 2024 1:44pmAnemia inactiveSept2024 1:44pmIron deficiency anemiaacuteSept2024 9:25amBPV (benign positional vertigo)acuteOctober 2024 1:45pmDyspnea on exertionacuteOctmary [facility] 2024 1:45pmGeneralized anxiety disorderacuteOctmary [facility] 2024 1:45pmGERD (gastroesophageal reflux disease)acuteOctmary [facility] 2024 1:45pmMenieres diseaseacuteOctmary [facility] 2024 1:45pmMorbid obesity with body mass index (BMI) of 50.0 to 59.9 in adultacuteOctmary [facility] 2024 1:45pmAnemiainactive April 03, 2025 1:45pmAbnormal weight gainacuteOctmary [facility] 2024 10:38amBMI 60.0-69.9, adultacuteOctmary [facility] 2024 10:38amClass 3 severe obesity with body mass index (BMI) of 60.0 to 69.9 in adultchadron community hospitalOctmary [facility] 2024 10:38am DepressionacuteOctmary [facility] 2024 10:38amDietary surveillance and counseling acuteOctmary [facility] 2024 10:38amExercise counselingacuteOctmary [facility] 2024 10:38amGeneralized anxiety disorderacuteOctmary [facility] 2024 10:38amGERD (gastroesophageal reflux disease)acuteOctober 2024 10:38amGlaucomaacute April 07, 2025 10:38amHistory of kidney stonesacuteOctmary [facility] 2024 10:38amHypertensionacuteOctmary [facility] 2024 10:38amIron deficiency anemiaacute April 07, [...] CPAPacuteNovember 2024 1:01pmType II diabetes mellitusacuteNov2024 1:01pm [facility] Work Phone: 1(919) 701-371907-02-2025 Evaluation note* Diagnosis Onset Date Resolution Status Admit Date Diarrhea in adult patient acuteJuly 2024 11:03am [facility] Work Phone: 1(356) 384-288407-02-2025 Evaluation note* Diagnosis Onset Date Resolution Status Admit Date Diarrhea in adult patient acuteJuly 2024 11:03amAnemiaacuteAugust 2024 9:43am [facility] Work Phone: 1(545) 402-405207-02-2025 Evaluation note* Diagnosis Onset Date Resolution Status Admit Date Diarrhea in adult patient acuteJuly 2024 11:03amAnemiaacuteAugust 2024 9:43amActive cochlear Meniere disease of right earacuteAugust 2024 9:03amHypertensionacuteAugust 2024 9:03amOSA on CPAPacuteAugust 2024 9:03amType II diabetes mellitusacuteAugust 2024 9:03amBMI 50.0-59.9, adultnoneactiveAugust 2024 9:03am [facility] Work Phone: 1(117) 949-301607-02-2025 Evaluation note* Diagnosis Onset Date Resolution Status [...] in adultacuteSept2024 2:16pmAnemiaacute March 07, 2025 1:44pm [facility] Work Phone: 1(303) 360-547707-02-2025 Evaluation note* Diagnosis Onset Date Resolution Status [...] 2025 1:44pmIron deficiency anemiaacuteSept2024 9:25am [facility] Work Phone: 1(764) 548-502604-15-2025 History of Present illness Narrative* Liam H [...] BRANDON (obstructive sleep apnea) 02/06/2024 Hypertension ([facility]) 02/06/2024 KAE (generalized anxiety disorder) ([facility]) 02/06/2024 Ovarian cyst 04/04/2024 Resolved Ambulatory Problems Diagnosis Date Noted Cat scratch 02/06/2024 Gastroenteritis 02/06/2024 Nausea 02/06/2024 Past Medical History: Diagnosis Date Anxiety Depression ([facility]) Diabetes 1.5, managed as type 2 ([facility]) ([facility]) Dizziness Past Surgical History: Procedure Laterality Date [...] meds. 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 Once pt has followed the diet for 6 weeks she will F/U with us. documented in this encounterSaint John's HospitalDiqqykicvk38-09-0919 Evaluation note* Diagnosis Onset Date Resolution Status Admit Date BPV (benign positional vertigo) acuteApril 2024 11:01amGeneralized anxiety disorderacuteApril 2024 11:01amActive cochlear Meniere disease of right earacuteApril 2024 9:42am [facility] Work Phone: 1(598) 889-443202-24-2025 Evaluation note* Diagnosis Onset Date Resolution Status Admit Date BPV (benign positional vertigo) acuteFebruary 2024 2:59pmType II diabetes mellitusacuteFebruary 2024 2:59pm [facility] Work Phone: 1(549) 250-963902-24-2025 Evaluation note* Diagnosis Onset Date Resolution Status Admit Date BPV (benign positional vertigo) acuteFebruary 2024 2:59pmType II diabetes mellitusacuteFebruary 24th, 2025 2:59pmBPV (benign positional vertigo)acuteMarch 2024 8:56amGeneralized anxiety disorderacuteApril 2024 11:01am [facility] Work Phone: 1(972) 145-539702-24-2025 Evaluation note* Diagnosis Onset Date Resolution Status Admit Date BPV (benign positional vertigo) acuteFebruary 2024 2:59pmType II diabetes mellitusacuteFebruary 2024 2:59pmBPV (benign positional vertigo)acuteMarch 2024 8:56amBPV (benign positional vertigo)acuteApril 2024 11:01amGeneralized anxiety disorder acuteApril 2024 11:01am [facility] Work Phone: 1(274) 999-953002-18-2025 History of Present illness Narrative* Liam Waggoner [...] positional vertigo) 02/06/2024 Bronchitis 02/06/2024 Glaucoma ([facility]) 02/06/2024 Headache 02/06/2024 Irregular menses 02/06/2024 Vertigo 02/06/2024 Type 2 diabetes mellitus ([facility]) 02/06/2024 BRANDON (obstructive sleep apnea) 02/06/2024 Hypertension ([facility]) 02/06/2024 KAE (generalized anxiety disorder) ([facility]) 02/06/2024 Ovarian cyst 04/04/2024 Resolved Ambulatory Problems Diagnosis Date Noted Cat scratch 02/06/2024 Gastroenteritis 02/06/2024 Nausea 02/06/2024 Past Medical History: Diagnosis Date Anxiety Depression ([facility]) Diabetes 1.5, managed as type 2 (HCC) [...] are potentially 2 issues. [facility] Tele[facility] encounter Note* Telephone Encounter - Liam Waggoner MD - 07/30/2024 2:30 PM EST VNG reviewed and there is a RT RVR as well as central findings [facility] Work Phone: 1(208) 104-766102-04-2025 Miscellaneous Notes* Telephone Encounter - Liam Waggoner MD - 07/30/2024 2:30 PM EST VNG reviewed and there is a RT RVR as well as central findings [facility] History of Present illness Narrative* Marry Hall, BRIAN - 07/29/2024 3:00 PM EST VNG Report Name: Nati Santos : 1985 Date: 07/29/2024 Referring Physician: Liam Waggoner MD History: Nati Santos, a 39 y.o. female, was seen today in the [facility] Audiology Department for VNG testing. She reports [...] in the leftward direction. Head Shake: negative Neelam-Hallpike: Rotary nystagmus was not recorded nor did [...] today. Brian Magallanes, CCC-A documented in this encounterOhioHealth Dublin [facility] Hospital10-22-2024 History of Present illness Narrative* Liam [...] positional vertigo) 02/06/2024 Bronchitis 02/06/2024 Glaucoma ([facility]) 02/06/2024 Headache 02/06/2024 Irregular menses 02/06/2024 Vertigo 02/06/2024 Type 2 diabetes mellitus ([facility]) 02/06/2024 BRANDON (obstructive sleep apnea) 02/06/2024 Hypertension ([facility]) 02/06/2024 KAE (generalized anxiety disorder) ([facility]) 02/06/2024 Ovarian cyst 04/04/2024 Resolved Ambulatory Problems Diagnosis Date Noted Cat scratch 02/06/2024 Gastroenteritis 02/06/2024 Nausea 02/06/2024 Past Medical History: Diagnosis Date Anxiety Depression ([facility]) Diabetes 1.5, managed as type 2 ([facility]) ([facility]) Dizziness Past Surgical History: Procedure Laterality Date [...] is a right RVR documented in this encounterSaint John's HospitalWldyeufusn13-06-9624 Evaluation note* Diagnosis Onset Date Resolution Status Admit Date BPV (benign positional vertigo) acuteOctober 2023 10:55am [facility] Work Phone: 1(461) 946-706008-28-2024 History of Present illness Narrative* KASSANDRA Velazquez [...] Ear: Type A tympanogram documented in this encounterSaint John's HospitalBigkqsshfk39-58-0784 Evaluation note* Encounter Date Diagnosis Assessment Notes [...] to continue with above medication as directed. [employer] Other 12-18-2023 Evaluation note* Encounter Date Diagnosis Assessment Notes Treatment Notes Treatment Clinical Notes May, Acute non-recurrent maxillary si nusitis (ICD-10 - J01.00) Finish already prescribed meds. Call if further needs. Pt requests tessalon for cough. [employer] Other 10-26-2023 Evaluation note* Encounter Date Diagnosis [...] understanding and is agreeable to treatment plan. [employer] Other 08-29-2023 Evaluation note* Encounter Date Diagnosis Assessment Notes Treatment Notes Treatment Clinical Notes Jan, Encounter for genera l adult medical examination without abnormal findings (ICD-10 - Z00.00) Pt just seen. This is a courtesy visit to complete paperwork for her new job. Forms completed. [employer] Other 03-14-2023 Evaluation note* Encounter Date Diagnosis Assessment Notes Treatment Notes Treatment Clinical Notes Aug, Obstructive sleep apnea (ICD-10 - G47.33) Fortunately, the patient is using and benefiting from treatment. Download was reviewed with patient, Current pressure is controlling apnea well, And we will make no changes at this time. A prescription was sent to the [facility] for new supplies throughout the year. She [...] as tolerated. We will continue to monitor. [employer] Other 10-16-2022 Evaluation note* Encounter Date Diagnosis [...] other viral communicable diseases (ICD-10 - Z20.828) [employer] Other 08-15-2022 Evaluation note* Encounter Date Diagnosis Assessment Notes Treatment Notes Treatment Clinical Notes Jan, Contact with and (alaniz spected) exposure to other viral communicable diseases (ICD-10 - Z20.828) [employer] Other 06-22-2022 NoteEntered by Vale Brown LPN on December 15, 2021 07:51:03 EDT From: Vale Brown LPN To: [facility] #[id number] Sent: 12/15/2021 07:51:03 EDT Subject: Medication Management Not Approved: Patient needs appointment venlafaxine (VENLAFAXINE ER 75MG CAPSULES) TAKE 1 CAPSULE BY MOUTH DAILY WITH FOOD Qty: 90 cap(s) Days Supply: 90 Refills: 0 Substitutions Allowed Route To Pharmacy - [facility] #[id number] Signed by Vale Brown LPN Not Approved: Patient needs appointment potassium chloride (POTASSIUM CL 10MEQ ER CAPSULES) TAKE 1 CAPSULE BY MOUTH TWICE DAILY Qty: 60 cap(s) Days Supply: 30 Refills: 0 Substitutions Allowed Route To Pharmacy - [facility] #[id number] Signed by Vale Brown LPN From: [facility] #[id number] To: Rere VARGAS, Trice Clark CNP Sent: [...] Refills: 0 Substitutions Allowed [id number] Note Entered by Vale Brown LPN on November 12, 2021 07:44:57 EDT From: Vale Brown LPN To: [employer] #[id number] Sent: 11/12/2021 07:44:57 EDT Subject: Medication Management Not Approved: Patient needs appointment potassium chloride (POTASSIUM CL 10MEQ ER CAPSULES) TAKE 1 CAPSULE BY MOUTH TWICE DAILY Qty: 60 cap(s) Days Supply: 30 Refills: 0 Substitutions Allowed Route To Pharmacy - [facility] #[id number] Signed by Vale Brown LPN Not Approved: Patient needs appointment metoprolol (METOPROLOL TARTRATE 50MG TABLETS) TAKE 1 TABLET BY MOUTH TWICE DAILY Qty: 180 tab(s) Days Supply: 90 Refills: 0 Substitutions Allowed Route To [facility][id number] Signed by Vale Brown LPN From: [facility] [facility] #[id number] To: Trice Milner CNP Sent: November 12, [...] Refills: 0 Substitutions Allowed [id number] Note Entered by Vale Brown LPN on October 18, 2021 08:04:27 EDT From: Vale Brown LPN To: [facility] #[id number] Sent: 10/18/2021 08:04:27 EDT Subject: Medication Management Not Approved: Patient needs appointment venlafaxine (VENLAFAXINE ER 75MG CAPSULES) TAKE 1 CAPSULE BY MOUTH DAILY WITH FOOD Qty: 30 cap(s) Days Supply: 30 Refills: 0 Substitutions Allowed Route To Pharmacy - [facility] #[id number] Signed by Vale Brown LPN From: [facility] #[id number] To: Trice Milner CNP Sent: October 17, 2021 2:28:31 AM CDT Subject: Medication Management Due: October 18, 2021 12:13:19 AM CDT On Hold Pending Signature Dispensed Drug: venlafaxine (venlafaxine 75 mg oral capsule, extended release), TAKE 1 CAPSULE BY MOUTH DAILY WITH FOOD Quantity: 30 cap(s) Days Supply: 30 Refills: 0 Substitutions Allowed [id number] Note Entered by Vale Brown LPN on September 01, 2021 07:49:00 EST From: Vale Brown LPN To: [facility] #[id number] Sent: 09/01/2021 07:49:00 EST Subject: Medication Management Not Approved: Patient needs appointment potassium chloride (POTASSIUM CL 10MEQ ER CAPSULES) TAKE 1 CAPSULE BY MOUTH THREE TIMES DAILY Qty: 90 cap(s) Days Supply: 30 Refills: 0 Substitutions Allowed Route To Pharmacy - [facility] #[id number] Signed by Vale Brown LPN Not Approved: Patient needs appointment furosemide (FUROSEMIDE 40MG TABLETS) TAKE 1 TABLET BY MOUTH DAILY Qty: 30 tab(s) Days Supply: 30 Refills: 0 Substitutions Allowed Route To Pharmacy - [facility] #[id number] Signed by Vale Brown LPN From: [facility] [facility] #[id number] To: Rere VARGAS, Trice Clark CNP Sent: September 01, 2021 5:21:03 AM SOFTWARE SUPPORT ENGINEER Subject: Medication Management Due: September 02, 2021 12:05:36 AM SOFTWARE SUPPORT ENGINEER On Hold Pending Signature Dispensed Drug: potassium [...] Refills: 0 Substitutions Allowed [id number] Note Entered by Vale Brown LPN on July 13, 2021 07:53:07 EST From: Vale Brown LPN To: [facility] [facility] #[id number] Sent: 07/13/2021 07:53:07 EST Subject: Medication Management Not Approved: Patient needs appointment buPROPion (BUPROPION SR 150MG TABLETS (12 H)) TAKE 1 TABLET BY MOUTH TWICE DAILY Qty: 60 tab(s) Days Supply: 30 Refills: 0 Substitutions Allowed Route To Pharmacy - [facility] #[id number] Signed by Vale Brown LPN Not Approved: Patient needs appointment amLODIPine (AMLODIPINE BESYLATE 5MG TABLETS) TAKE 1 TABLET BY MOUTH EVERY DAY Qty: 30 tab(s) Days Supply: 30 Refills: 0 Substitutions Allowed Route To Pharmacy - [facility] #[id number] Signed by Vale Brown LPN From: [facility] #[id number] To: Rere VARGAS, Trice Clark CNP Sent: July 13, 2021 5:21:31 AM SOFTWARE SUPPORT ENGINEER Subject: Medication Management Due: July 14, 2021 12:08:57 AM SOFTWARE SUPPORT ENGINEER On Hold Pending Signature Dispensed Drug: buPROPion [...] Refills: 0 Substitutions Allowed [id number] Note Entered by Sugar Treadwell on March 25, 2021 08:02:40 EDT From: Sugar Treadwell To: [facility] #[id number] Sent: 03/25/2021 08:02:39 EDT Subject: Medication Management Submitted: Complete:buPROPion (buPROPion 150 mg/12 hours (SR) oral tablet, extended release) Signed by Sugar Treadwell 03/25/2021 08:02:00 EDT Approved buPROPion (BUPROPION SR 150MG TABLETS (12 H)) TAKE 1 TABLET BY MOUTH TWICE DAILY Qty: 60 tab(s) Days Supply: 30 Refills: 0 Substitutions Allowed Route To Pharmacy - [facility] #[id number] Signed by Sugar Treadwell From: [employer] #[id number] To: Rere VARGAS, Trice Clark CNP Sent: March 24, 2021 5:13:26 PM CDT Subject: Medication Management Due: March 25, 2021 12:05:52 AM CDT On Hold Pending Signature Dispensed Drug: buPROPion (BuPROPion (Eqv-Wellbutrin SR) 150 mg/12 hours oral tablet, extended release), TAKE 1 TABLET BY MOUTH TWICE DAILY Quantity: 60 tab(s) Days Supply: 30 Refills: 0 Substitutions Allowed [id number] Note From: Estefany Beaver ([facility] To: Vale Brown LPN; Sent: 03/09/2021 08:37:45 EDT Subject: FW: Medication Management Due Date/Time: 03/10/2021 06:23:00 EDT From: [facility] #[id number] To: ELFEGO BETANCUR, AIDEN Clark MD Sent: [...] 03/10/2021 06:23:00 EDT From: Trice Milner To: [employer] #[id number] Sent: 03/09/2021 14:44:31 EDT Subject: FW: Medication Management Not Approved: New prescription sent separately under my name buPROPion (BUPROPION SR 150MG TABLETS (12 H)) TAKE 1 TABLET BY MOUTH TWICE DAILY Qty: 60 tab(s) Days Supply: 30 Refills: 0 Substitutions Allowed Route To Pharmacy - [facility] #[id number] Signed by Trice Milner [facility]08-18-2021 Note From: Vale Brown LPN ([facility] To: Trice Milner; Sent: 02/09/2021 13:49:55 EDT Subject: FW: Medication Management Due Date/Time: 02/10/2021 13:24:00 EDT From: [facility] #[id number] To: Trice Milner CONSUMER PRODUCT ADVISOR Sent: February 09, 2021 12:24:45 PM CDT Subject: Medication Management Due: February 10, 2021 9:36:46 AM CDT On Hold Pending Signature Dispensed Drug: furosemide (furosemide 40 mg oral tablet), TAKE 1 TABLET BY MOUTH DAILY Quantity: 14 tab(s) Days Supply: 14 Refills: 0 Substitutions Allowed Notes from Pharmacy: From: Trice Milner To: [facility] #[id number] Sent: 02/09/2021 20:17:24 EDT Subject: FW: Medication Management Not Approved: have patient call office furosemide (FUROSEMIDE 40MG TABLETS) TAKE 1 TABLET BY MOUTH DAILY Qty: 14 tab(s) Days Supply: 14 Refills: 0 Substitutions Allowed Route To Pharmacy - [facility] #[id number] From: Trice Milner To: Re[facility] ([facility]); Sent: 02/09/2021 20:17:49 EDT Subject: RE: Medication Management Asked patient to call back -not sure that I am going to keep her on 40 mg of Lasix at this point [facility] noteNo InformationNort Zostel Other Evaluation noteNo assessment information available [facility] Work Phone: Evaluation note* Diagnosis Onset Date Resolution Status Anemia acuteGlaucomaacuteType II diabetes mellitusacute [facility] Work Phone: Evaluation note* Diagnosis Onset Date Resolution Status Anemia acuteGastroenteritisacuteGlaucomaacuteType II diabetes mellitusacute [facility] Work Phone: Evaluation note* Diagnosis Onset Date Resolution Status Anemia acuteGastroenteritisacuteGlaucomaacuteType II diabetes mellitusacuteBPV (benign positional vertigo)[facility] Work Phone: Evaluation note* Diagnosis Onset Date Resolution Status Anemia acuteGastroenteritisacuteGlaucomaacuteType II diabetes mellitusacuteBPV (benign positional vertigo)acuteBPV (benign positional vertigo)acuteNauseaacuteBPV (benign positional vertigo)acuteHeadacheacuteNauseaacuteVisual changesacute [facility] Work Phone: Evaluation note* Diagnosis Onset Date Resolution Status Headache acute [facility] Work Phone: Evaluation note* Diagnosis Sensorineural hearing loss (SNHL) of right ear with unrestricted hearing of left ear- Primary Dizziness and giddiness Migraine without status migrainosus, not intractable, unspecified migraine type (CMS/HCC) documented in this encounter [facility]* Diagnosis Sensorineural hearing loss (SNHL) of both ears- Primary Vertigo Dizziness and giddiness documented in this encounter [facility]* Diagnosis Dizziness and giddiness- Primary [facility] Diagnosis Peripheral vestibulopathy of right ear- Primary Migrainous dizziness Active cochlear Meniere disease of right ear documented in this encounter [facility]* Diagnosis Active cochlear Meniere disease of right ear- Primary documented in this encounter [facility]* Diagnosis Dizziness- Primary Dizziness and giddiness Fullness in ear, bilateral Tinnitus of both ears Unspecified tinnitus [facility]* Diagnosis Benign paroxysmal vertigo of right ear- Primary Meniere's disease of right ear Dizziness Dizziness and giddiness Fullness in ear, bilateral Sleep apnea treated with continuous positive airway pressure (CPAP) Meniere's disease of right ear Dizziness Dizziness and giddiness documented [facility]* Diagnosis Well woman exam with routine gynecological exam- Primary Routine gynecological examination Pap smear, as part of routine gynecological examination Screening for malignant neoplasm of the cervix Standardized adult depression screening tool completed Abnormal uterine bleeding Unspecified disorder of menstruation and other abnormal bleeding from female genital tract Encounter for screening mammogram for malignant neoplasm of breast documented [facility]* Diagnosis Benign paroxysmal vertigo of right ear- Primary Meniere's disease of right ear Dizziness Dizziness and giddiness Fullness in ear, bilateral [facility]* Diagnosis Menorrhagia with regular cycle [facility] Narrative - Reported* Type Description Date Medical History hypertension Medical HistoryOSA. hypertensionMedical HistoryOSAMedical HistoryObesityMedical HistorydiabetesMedical HistoryLower extremity edemaSurgical Historycarpal tunnel [id number] [facility] [employer] Other Hiskvwp general Narrative - Reported* Type Description Date Medical History hypertension Medical HistoryOSAMedical HistoryObesityMedical HistorydiabetesMedical History Lower extremity edemaSurgical Historycarpal tunnel [id number] [facility] [employer] Other Hospital Discharge instructionsAmbulatory Orders* Referral to ENT Time Frame: 12/11/23, Location: None [facility] Work Phone: Hospital Discharge instructionsAmbulatory Orders* Referral to Psychiatry Time Frame: 10/03/24, Location: None [facility] Work Phone: Hospital Discharge instructionsAmbulatory Orders* Referral to Hematology Time Frame: 02/10/25, Location: None [facility] Work Phone: InstructionsNot on filedocumented in this encounter [facility] SystemInstructionsNot on filedocumented in this encounter [facility] SystemInstructionsNot on filedocumented in this encounter [facility]* Attachments The following attachments cannot be sent through Care Everywhere. * Calcium and vitamin D for bone health ([place]) * Mammogram ([place]) * Deciding to have a hysterectomy ([place]) * Endometrial ablation ([place]) documented [facility] SystemReason for referral (narrative)No reason for referral information availableMer[facility] Work Phone: Summary Purpose Family History [...] Amb Documentation February 07, 2025 8: 23am Vertigo/[facility] f/u February 10, 2025 9: 43am [...] 2025 9 :03am [facility]ign [facility] Menieres disease February 25, 2025 2:16pm Morbid obesity with body mas s index (BMI) of 50.0 to 59.9 in adult February 25, 2025 2:16pm Anemia March 07, 2025 1:44pm BPV (benign positional vertigo) [facility] Generalized anxiety disorder February 242024 [...] DR. AHUMADA FOR IRON DEF [facility]EM[facility] 9:25am r11.0 March 15, 2025 8:06am Dizziness/Return to Work April 03 [facility] April 07, 2025 1 0:38am Reason for Visit Admit Date Anemia February 10, 2025 9: 43am Active cochlear Meniere disease of right ear February 20, 2025 9:03am Hypertension February 20, 2025 9: 03am BRANDON on CPAP February 20, 2025 9: 03am Type II diabetes mellitus February 20, 025 9:03am BMI 50.0-59.9, adult February 20, 2025 9 :03am BPV (benign positional vertigo) [facility] Menieres disease February 25, 2025 2:16pm Morbid obesity with body mas s index (BMI) of 50.0 to 59.9 in adult February 25, 2025 2:16pm BPV (benign positional vertigo) [facility] 2024 1:44pm Generalized anxiety disorder February 242024 [...] Dizziness/Return to Work April 03 1:45pm [facility] (QDONE) April 07, 2025 1 0:38am brandon/ [...] 8:06am Dizziness/Return to Work April 03 1:45pm Ahumada-[facility] ([facility] April 07, 2025 1 0:38am brandon/ [...] 2025 9 :03am BPV (benign positional vertigo) [facility] Menieres disease February 25, 2025 2:16pm Morbid obesity with body mas s index (BMI) of 50.0 to 59.9 in adult February 25, 2025 2:16pm BPV (benign positional vertigo) [facility] 1:44pm Generalized anxiety disorder February 242024 [...] Amb Documentation February 07, 2025 8: 23am Vertigo/[facility] f/u February 10, 2025 9: 43am brandon February 20, 2025 9: 03am ENT f/u February 25, 2025 2:16pm Discuss Oncology Visit March 07 1:44pm REF BY DR. AHUMADA FOR IRON DEF ANEMIA Sep 2024 9:25am r11.0 March 15, 2025 8:06am Dizziness/Return to Work April 03 1:45pm [facility]umada[facility] ([facility]) April 07, 2025 1 0:38am brandon/ [...] 25, 2025 2:16pm BPV (benign positional vertigo) [facility] Generalized anxiety disorder February 242024 [...] section and content) DATE CREATED AUTHOR 07/12/2021 [facility] DATE CREATED AUTHOR AUTHOR'S ORGANIZ ATION 12/15/2021 [facility] DATE CREATED AUTHOR AUTHOR'S ORGANIZ ATION 03/29/2022 [facility] DATE CREATED AUTHOR AUTHOR'S ORGANIZ ATION 07/31/2024 [facility] DATE CREATED AUTHOR AUTHOR'S ORGANIZ ATION 03/19/2025 [facility] DATE CREATED AUTHOR AUTHOR'S ORGANIZ ATION 04/08/2025 [facility] DATE CREATED AUTHOR AUTHOR'S ORGANIZ ATION 04/17/2025 [facility] DATE CREATED AUTHOR AUTHOR'S ORGANIZ ATION 05/08/2025 [facility] EPIC REASON FOR VISIT (unrecogniz ed section and content) ReasonCommentsVertigoAudio 02/21/24ReasonCommentsDizzinessSpecialtyDiagnoses / ProceduresReferred By ContactReferred To Contact Diagnoses Dizziness and giddiness Procedures Videonystagmography (Audiology) Liam Waggoner MD [address] [place] [address] Phone: tel: fax: Referral IDStatusReasonStart DateExpiration DateVisits RequestedVisits [id number] [id number] Loss Follow up [facility] 07/29/24ReasonCommentsEar Problem6 week low sodiumReasonComments Meniere'sDizzinessSpecialtyDiagnoses / ProceduresReferred By ContactReferred To ContactOtolaryngology Diagnoses Meniere's disease of right ear Benign paroxysmal vertigo of right ear April Ahumada MD [address] [place] [address] Phone: tel: fax: Dominique Pond MD [address] [address] Phone: tel: fax: Referral IDStatusReasonStart DateExpiration DateVisits RequestedVisits [id number] Review Specialty Services Required /[id number] NmyjSdsojynzEjsdkxbt76/26/2025ReasonComments Gynecologic ExamPatient presents for their annual well [...] Attending Provider Active Adry Crockett MD RESReferring ProviderActiveSerpaoli hospital Family HealthPrimary Care ProviderActive Team Status: [...] MemberRelationshipSpecialtyStart DateEnd Date April Ahumada MD [address] [facility] [place] [phone] PCP - GeneralFamily Medicine12/13/23Team MemberRelationshipSpecialtyStart DateEnd Date April Ahumada MD [address] [facility] [phone] PCP - GeneralFamily Medicine12/13/23 Team Status: Inactive Member Role Status Dates April Ahumada MD Primary Care Provide r, Attending Provider Active Start: May 13, 2024 End: May 13, 2024Team MemberRelationshipSpecialtyStart DateEnd Date April Ahumada MD [address] [facility] [phone] PCP - GeneralFamily Medicine12/13/23Team MemberRelationshipSpecialtyStart DateEnd Date April Ahumada MD [address] [facility] [place] [phone] PCP - GeneralFamily Medicine12/13/23Team MemberRelationshipSpecialtyStart DateEnd Date April Ahumada MD [address] [place] [address] PCP - GeneralFamily Medicine06/30/23Team MemberRelationshipSpecialtyStart DateEnd Date April Ahumada MD [address] [facility] [place] [phone] [facility] - [facility]12/13/23Team MemberRelationshipSpecialtyStart DateEnd Date April Ahumada MD [address] [facility] [place] [phone] [facility] - [facility] Medicine12/13/23 Team Status: Inactive Member Role [...] DateEnd Date April Ahumada MD [address] [facility] [place] [phone] PCP - GeneralMer[facility]one [facility] Centerly Medicine10/08/24Team MemberRelationshipSpecialtyStart DateEnd Date April Ahumada MD [address] [facility] [place] [phone] [facility]CP - [facility] Medicine10/08/24 Team Status: Inactive Member Role Status Dates April Ahumada MD Primary Care Provide r, Attending Provider Active Start: October 16, 2024 End: October 16, 2024 Team Status: Inactive Member Role Status Dates April Ahumada MD Primary Care Provider Active Start: October 03, 2024 End: October 03, 2024April Ahumada MDAttcarolinaeast medical center ProviderActiveStart: October 03, 2024 End: October 03, 2024 Team Status: Inactive Member Role Status Dates April Ahumada MD Primary Care Provider Active Start: October 16, 2024 End: October 16, 2024Keith Delcid ProviderActiveStart: October 16, 2024 End: October 16, 2024Team MemberRelationshipSpecialtyStart DateEnd Date April Ahumada MD [address] [place], [place] [phone] PCP - GeneralFamily Medicine06/30/23Team MemberRelationshipSpecialtyStart DateEnd Date April Ahumada MD [address] [place], [place] [phone] PCP - GeneralFamily Medicine06/30/23Team MemberRelationshipSpecialtyStart DateEnd Date April Ahumada MD [address] [place] [id number] PCP - GeneralFamily Medicine06/30/23 Team Status: Inactive [...] 2025Team MemberRelationshipSpecialtyStart DateEnd Date April Ahumada MD [address] [place], [place] [phone] PCP - [facility]03/03/25 Team Status: Inactive Member Role Status [...] 2025Team MemberRelationshipSpecialtyStart DateEnd Date April Ahumada MD [address] [place] [address] [facility]03/03/25 Team Status: Active Member Role/Relationship Status Dates [...] Active Start: February 07, 2025 Imelda Hutchins CMAAttcarolinaeast medical center ProviderActiveStart: February 07, 2025 Team Status: Inactive [...] MemberRelationshipSpecialtyStart DateEnd Date April Ahumada MD [address] [place] [address] [facility] - [facility] Medicine10/08/24Team MemberRelationshipSpecialtyStart DateEnd Date April Ahumada MD [address] [place] [address] PCP - GeneralFamily Medicine10/08/24 Goals (unrecognized section [...] BE BASED ON THE PRIMARY CLINICAL RECORDS. [facility] [employer] [facility]. provides no warranty or guarantee of the accuracy or completeness of information in this document.
[2025-06-24 10:02] LABS: Anion Gap 13.5; Blood Urea Nitrogen 12.0 mg/dL (7.0-18.0); Calcium 9.3 mg/dL (8.5-10.1); Carbon Dioxide 29.5 mmol/L (21.0-32.0); Chloride 103 mmol/L (98-107); Estimated GFR (African America >60 (>=60 mL/min/1.73m^2); Estimated GFR (Non-African Ame >60 (>=60 mL/min/1.73m^2); Glucose 129 mg/dL (74-106); Potassium 4.0 mmol/L (3.5-5.1); Sodium 142 mmol/L (136-145)
== END 2025-06-24 08:57 | disposition home or self-care (01) ==
PROVIDERS: PCP Family Medicine; Visit Provider Obstetrics & Gynecology
DX: Z01.812 Encounter for preprocedural laboratory examination (principal); N92.0 Excessive and frequent menstruation with regular cycle; N93.9 Abnormal uterine and vaginal bleeding, unspecified; R10.20 Pelvic and perineal pain unspecified side
CPT/HCPCS: 36415; 80048; 80053